=== PATIENT | male | born 1940 | race Caucasian/White ===

== ENCOUNTER 2019-06-02 05:46 | Outpatient (RCR) | payer MEDICARE, SELFPAY | END 2019-06-21 00:01 | LOC: ONCMED 05:46 | PROVIDERS: Family Provider Nurse Practitioner Family; Visit Provider Radiology Radiation Oncology | DX: C79.51 Secondary malignant neoplasm of bone (principal); C34.11 Malignant neoplasm of upper lobe, right bronchus or lung; I82.622 Acute embolism and thrombosis of deep veins of left upper extremity; G89.3 Neoplasm related pain (acute) (chronic); K59.00 Constipation, unspecified; K57.30 Diverticulosis of large intestine without perforation or abscess without bleeding; R91.8 Other nonspecific abnormal finding of lung field; Z79.02 Long term (current) use of antithrombotics/antiplatelets; Z79.84 Long term (current) use of oral hypoglycemic drugs; Z92.3 Personal history of irradiation; Z90.2 Acquired absence of lung [part of] ==

== ENCOUNTER 2019-06-28 10:51 | Emergency (ER) | payer MEDICARE, SELFPAY ==
[2019-06-28 10:57] VITALS: BP 139/90; PULSE 73; RESP 16; TEMP 36.5; O2SAT 92; BMI 29.9
--- NOTE | 2019-06-28 11:09 | ED_ITS ---
Entered by Rere Orellana, acting as scribe for HPI - Dizziness General: Chief Complaint: Dizziness Stated Complaint: Dizzy Time Seen by Provider: 06/28/19 11:08 Source: patient and family Mode of arrival: ambulatory Limitations: no limitations History of Present Illness: HPI Narrative: 79 yo male presents with dizziness. pt states it has been hard to walk. pt states he had pins placed in his L hip due to bone cancer recently. pt was concerned that the dizziness was linked to his cancer and wanted to get checked out. pt states this started 1 month ago but worsened 2 days ago. pt denies any other symptoms at this time. MD elicited complaint: dizziness, lightheadedness and difficulty walking Onset (ago): day(s) (today) Timing: sudden onset Severity: similar to previous episodes (off and on for 1 month) Exacerbating factors: movement/ambulation, exertion and standing Relieving factors: other (better later in the day) Associated symptoms: Reports nausea and weakness; Denies chest pain, chills, diaphoresis or syncope Review of Systems General: Reports: 10 or more systems reviewed and unremarkable except in HPI and below Const: Denies: fever, chills, body aches, change in appetite, diaphoresis or change in sleep pattern Eyes: Denies: change in vision ENMT: Denies: throat pain or uvular edema Card: Reports: lightheadedness; Denies: chest pain or syncope Resp: Denies: shortness of breath, productive cough, non-productive cough, change in phlegm color or coughing up blood GI: Reports: nausea : Denies: flank pain, urinary hesitancy, nighttime urination or genital lesion PFSH ED PFSH: Statuses (acute, chronic, etc) shown below reflect problem list status as previously entered and may not be historically accurate Social History Smoking and tobacco status: former smoker Physical Exam Const: COMMON NORMALS: no apparent distress, average body habitus, oriented x3, no limitations, healthy appearing, alert and well nourished HENMT: COMMON NORMALS: normocephalic, head/scalp atraumatic, hearing grossly normal bilaterally, external ears normal, EAC's normal, TM's normal bilaterally, external nose normal, nasal mucous membranes and turbinates normal, moist oral mucous membranes, oropharynx normal, dentition normal and gingiva normal HEAD & SCALP: normocephalic and atraumatic NOSE: external nose normal and nasal mucous membranes and turbinates normal EXTERNAL EAR: Yes external ears normal EXTERNAL AUDITORY CANAL: EAC's normal TYMPANIC MEMBRANE: TM's normal bilaterally THROAT: no uvular edema Eye: COMMON NORMALS: PERRL, EOMs intact bilaterally, conjunctivae normal, no scleral icterus, no papilledema, normal visual hickey by confrontation and fundi normal bilaterally CONJUNCTIVA: Yes conjunctivae normal PUPIL: Yes PERRL DIRECT OPHTHALMOSCOPY: Yes no papilledema and Yes fundi normal bilaterally Neck/C-Spine: COMMON NORMALS: full ROM, no lymphadenopathy, supple, no meningeal signs, no JVD, thyroid normal and no carotid bruits THYROID: thyroid normal Chest: COMMONS NORMALS: inspection of chest normal and palpation of chest normal Resp: COMMON NORMALS: normal respiratory effort, no retractions, no use of accessory muscles, clear to auscultation bilaterally and percussion normal AUSCULTATION: clear to auscultation bilaterally PERCUSSION: percussion normal Cardio: COMMON NORMALS: no JVD, regular rate, regular rhythm, S1 normal heart sound, S2 normal heart sound, no gallops, no clicks, no murmurs, no rub and peripheral pulses 2+ throughout RATE: regular rate RHYTHM: regular rhythm HEART SOUNDS: S1 normal and S2 normal PERIPHERAL PULSES: pulses 2+ throughout GI: COMMON NORMALS: normal to inspection, nondistended, normoactive bowel sounds, soft to palpation, non-tender, no hepatosplenomegaly, no masses and no bruits PALPATION: Yes soft and Yes no hepatosplenomegaly : COMMON NORMALS: Yes no CVA tenderness BLADDER/KIDNEY EXAM: Yes no CVA tenderness Back/Pelvis: COMMON NORMALS: no CVA tenderness, thoracic and lumbar spine normal to inspection, no thoracic nor lumbar tenderness, thoraco-lumbar ROM normal and straight leg raise negative bilaterally Extremity: COMMON NORMALS: normal to inspection, full ROM, normal capillary refill, no joint enlargement, no clubbing, cyanosis or edema, no calf tenderness and no pedal edema Neuro: COMMON NORMALS: oriented x3 SENSORIUM/ORIENTATION: Yes alert MENINGEAL SIGNS: Yes no meningeal signs Skin: COMMON NORMALS: no rashes or lesions noted, no wounds, skin turgor normal, no jaundice, no petechiae and no mottling GENERAL SKIN EXAM: no rashes or lesions noted and turgor normal Course Vital Signs: Vital signs: Vital Signs Temperature 97.7 F 06/28/19 10:57 Pulse Rate 73 06/28/19 10:57 Respiratory Rate 16 06/28/19 10:57 Blood Pressure 139/90 06/28/19 10:57 Pulse Oximetry 92 06/28/19 10:57 MDM - Dizziness Lab Data: Labs: Lab Results 06/28/19 06/28/19 06/28/19 Range/Units 11:30 11:30 11:30 WBC 5.8 (4.0-10.0) 10^3/ uL RBC 5.50 H (4.1-5.3) 10^6/u L Hgb 16.7 H (11.7-16.6) g/dL Hct 47.8 (42.0-52.0) % MCV 86.9 (80-94) fL MCH 30.4 (28.0-34.0) pg MCHC 34.9 (30.0-36.0) g/dL RDW 12.9 (12.1-15.1) % Plt Count 87 L (130-400) 10^3/c mm MPV 10.7 H (7.4-10.4) fL Neut % (Auto) 66.6 % Lymph % (Auto) 18.7 % [place] % (Auto) 9.6 % Eos % (Auto) 3.9 % Baso % (Auto) 1.0 % Neut # (Auto) 3.9 (1.8-7.7) 10^3/u L Lymph # (Auto) 1.1 (0.8-4.8) 10^3/u L [place] # (Auto) 0.6 (0.2-0.9) 10^3/u L Eos # (Auto) 0.2 (0.0-0.8) 10^3/u L Baso # (Auto) 0.1 (0.0-0.1) 10^3/u L Nucleated RBC % (a uto) 0 % Nucleated RBCs # 0.0 /100WBC Sodium 137 (136-145) mmol/L Potassium 4.3 (3.5-5.1) mmol/L Chloride 101 (98-107) mmol/L Carbon Dioxide 24 (22-29) mmol/L Anion Gap 16.3 (5-19) BUN 24 H (8-23) mg/dL Creatinine 1.0 (0.7-1.2) mg/dL Glucose 158 H (74-106) mg/dL Lactate 1.2 (0.5-2.2) mmol/L Calcium 10.5 H (8.8-10.2) mg/Dl Total Bilirubin 0.9 (0.15-1.2) mg/dL AST 16 (0-40) U/L ALT 13 (0-41) U/L Alkaline Phosphata se 49 (40-130) IU/L NT-Pro-B Natriuret Pep 106 (0-450) pg/mL Total Protein 7.2 (6.6-8.7) g/dL Albumin 4.7 (3.5-5.2) g/dL Globulin 2.5 (1.3-4.6) g/dL Urine Color (Yellow) Urine Appearance (CLEAR) Urine pH (5-7) Ur Specific Gravit y (1.005-1.030) Urine Protein (Negative) Urine Glucose (UA) (Normal) Urine Ketones (Negative) Urine Occult Blood (Negative) Urine Nitrate (Negative) Urine Bilirubin (NEGATIVE) Urine Urobilinogen (Negative) mg/dL Ur Leukocyte Ritika ase (Negative) 06/28/19 Range/Units 12:22 WBC (4.0-10.0) 10^3/ uL RBC (4.1-5.3) 10^6/u L Hgb (11.7-16.6) g/dL Hct (42.0-52.0) % MCV (80-94) fL MCH (28.0-34.0) pg MCHC (30.0-36.0) g/dL RDW (12.1-15.1) % Plt Count (130-400) 10^3/c mm MPV (7.4-10.4) fL Neut % (Auto) % Lymph % (Auto) % [place] % (Auto) % Eos % (Auto) % Baso % (Auto) % Neut # (Auto) (1.8-7.7) 10^3/u L Lymph # (Auto) (0.8-4.8) 10^3/u L [place] # (Auto) (0.2-0.9) 10^3/u L Eos # (Auto) (0.0-0.8) 10^3/u L Baso # (Auto) (0.0-0.1) 10^3/u L Nucleated RBC % (a uto) % Nucleated RBCs # /100WBC Sodium (136-145) mmol/L Potassium (3.5-5.1) mmol/L Chloride (98-107) mmol/L Carbon Dioxide (22-29) mmol/L Anion Gap (5-19) BUN (8-23) mg/dL Creatinine (0.7-1.2) mg/dL Glucose (74-106) mg/dL Lactate (0.5-2.2) mmol/L Calcium (8.8-10.2) mg/Dl Total Bilirubin (0.15-1.2) mg/dL AST (0-40) U/L ALT (0-41) U/L Alkaline Phosphata se (40-130) IU/L NT-Pro-B Natriuret Pep (0-450) pg/mL Total Protein (6.6-8.7) g/dL Albumin (3.5-5.2) g/dL Globulin (1.3-4.6) g/dL Urine Color Yellow (Yellow) Urine Appearance Clear (CLEAR) Urine pH 6 (5-7) Ur Specific Gravit y 1.010 (1.005-1.030) Urine Protein Neg (Negative) Urine Glucose (UA) 4+ H (Normal) Urine Ketones Negative (Negative) Urine Occult Blood Neg (Negative) Urine Nitrate Negative (Negative) Urine Bilirubin Neg (NEGATIVE) Urine Urobilinogen Norm (Negative) mg/dL Ur Leukocyte Ritika ase Negative (Negative) Discharge Plan Discharge Patient Disposition: Home, Self-Care Clinical Impression: Dizziness Acute vestibular neuronitis Qualifiers: Laterality: unspecified laterality Qualified Code(s): H81.20 - Vestibular neuronitis, unspecified ear Condition: Stable Prescriptions: New meclizine 25 mg tablet 25 mg PO QID PRN (Reason: dizziness) Qty: 20 RF: 0 Discharge Orders: Discharge Order (Routine); Ordered 06/28/19 Ordered By: Devendra Franz Referrals: Aislinn Beebe NP [Primary Care Provider] - Discharge Diet: Usual diet Discharge Activity: Return to work/school after cleared by PCP/Specialist Coding Level of Care Code ED Fusion Operator for Chg Fwd Exam Problem Focused The documentation recorded by the Esteban seals Bridget Annette, accurately reflects the service I personally performed and the decisions made by , Devendra Franz, Jun 28, 2019 10:51
--- NOTE | 2019-06-28 11:19 | CT_ITS ---
WS: [id number] CT HEAD WITH AND WITHOUT CONTRAST HISTORY: bone ca -- mets? TECHNIQUE: Noncontrast 2.5 mm axial images obtained from the vertex to the skull base. Additional patricia ging performed at 2.5 mm axial images status post IV contrast. Bone and soft tissue windows are revie wed. All CT scans at [facility] use at least one of these dose optimization techniques: a utomated exposure control; mA and/or kV adjustment per patient size (includes targeted exams where do se is matched to clinical indication); or iterative reconstruction. CONTRAST: Omnipaque 300; 95 mL IV. DLP: 1326.51 mGy-cm. COMPARISON: 01/01/2019 No acute intracranial hemorrhage, edema or midline shift. Mild chronic microvascular ischemic disease . Prior lacunar infarct RIGHT basal ganglia. There is a new area of decreased density in the posterio r RIGHT parietal lobe. This does not enhance. No enhancing masses are identified. Small venous angioma in the LEFT frontal lobe vertex. Dural venous sinuses are normally enhancing. Moderate atherosclerosis. No occlusions. Distal vertebral arteries are very tortuous. Paranasal sinuses as visualized: Clear. Mastoid air cells: Clear. Calvarium and scalp: Intact. CT/CT head wo/w con [id number] IMPRESSION: 1. No acute intracranial hemorrhage or edema. 2. No enhancing masses. To exclude early metastatic disease consider MRI brain with contrast follow-up on a nonurgent basis. 3. No metastasis to the skull is identified. 4. Moderate atherosclerosis intracranial carotid arteries.
--- NOTE | 2019-06-28 11:19 | XR_ITS ---
WS: [id number] PORTABLE CHEST HISTORY: weakness COMPARISON: 03/19/2019 Prior sternotomy. Elevated RIGHT hemidiaphragm with adjacent pleural thickening. Scarlike area of interstitial thickeni ng at the LEFT lung base is stable. No pleural effusion or pneumothorax. Cardiac size: Normal. Mediastinum/Aorta: Mild atherosclerosis aorta. No osseous abnormality seen. XR/XR chest 1V portable [id number] IMPRESSION: Stable chest with no acute cardiopulmonary disease.
--- NOTE | 2019-06-28 11:35 | PC.NURSE ---
chest x-ray being performed at this time.
[2019-06-28 11:42] LABS: Basophils # 0.1 10^3/uL (0.0-0.1); Eosinophils # 0.2 10^3/uL (0.0-0.8); Eosinophils % 3.9 %; Hematocrit 47.8 % (42.0-52.0); Hemoglobin 16.7 g/dL (11.7-16.6); Lymphocytes # 1.1 10^3/uL (0.8-4.8); Lymphocytes % 18.7 %; Mean Corpuscular HGB Conc 34.9 g/dL (30.0-36.0); Mean Corpuscular Hemoglobin 30.4 pg (28.0-34.0); Mean Corpuscular Volume 86.9 fL (80-94); Mean Platelet Volume 10.7 fL (7.4-10.4); Monocytes # 0.6 10^3/uL (0.2-0.9); Monocytes % 9.6 %; Neutrophils # 3.9 10^3/uL (1.8-7.7); Neutrophils % 66.6 %; Nucleated Red Blood Cells % 0 %; Platelet Count 87 10^3/cmm (130-400); Red Cell Distribution Width 12.9 % (12.1-15.1); White Blood Count 5.8 10^3/uL (4.0-10.0)
[2019-06-28] MEDS: sodium chloride 0.9% 1,000 ML 999 ML IV (11:43)
[2019-06-28 11:52] LABS: Lactate (Lactic Acid level) 1.2 mmol/L (0.5-2.2)
[2019-06-28 12:02] LABS: Alanine Aminotransferase 13 U/L (0-41); Albumin Level 4.7 g/dL (3.5-5.2); Alkaline Phosphatase 49 IU/L (40-130); Anion Gap 16.3 (5-19); Aspartate Amino Transferase 16 U/L (0-40); Blood Urea Nitrogen 24 mg/dL (8-23); Calcium 10.5 mg/Dl (8.8-10.2); Carbon Dioxide 24 mmol/L (22-29); Chloride 101 mmol/L (98-107); Globulin 2.5 g/dL (1.3-4.6); Glucose 158 mg/dL (74-106); NT Pro B Type Natriuretic Pept 106 pg/mL (0-450); Potassium 4.3 mmol/L (3.5-5.1); Sodium 137 mmol/L (136-145); Total Bilirubin 0.9 mg/dL (0.15-1.2); Total Protein 7.2 g/dL (6.6-8.7)
--- NOTE | 2019-06-28 12:10 | PC.NURSE ---
Patient attempting to collect urine
--- NOTE | 2019-06-28 12:23 | PC.NURSE ---
Patient to CT via stretcher
[2019-06-28] MEDS: iohexol 300 mg/mL 100 mL Btl IV (12:24)
[2019-06-28 12:25] LABS: Add Urine Microscopic? NO
--- NOTE | 2019-06-28 12:27 | PC.NURSE ---
Patient back to room
[2019-06-28 12:39] LABS: Urine Appearance Clear (CLEAR); Urine Color Yellow (Yellow); pH Urine 6 (5-7)
[2019-06-28 12:40] LABS: Bilirubin Urine Neg (NEGATIVE); Blood Urine Neg (Negative); Glucose Urine UA 4+ (Normal); Ketones Urine Negative (Negative); Leukocyte Esterase Urine Negative (Negative); Nitrate Urine Negative (Negative); Protein Urine Neg (Negative); Urobilinogen Urine Norm (Negative)
[2019-06-28 13:17] VITALS: BP 138/63; PULSE 73; RESP 15; O2SAT 97
== END 2019-06-28 13:18 | disposition home or self-care (01) ==
PROVIDERS: Emergency Provider Family Medicine; Family Provider Nurse Practitioner Family; PCP Nurse Practitioner Family
DX: H81.20 Vestibular neuronitis, unspecified ear (principal); Z87.891 Personal history of nicotine dependence; I70.0 Atherosclerosis of aorta
CPT/HCPCS: 36415; 70470; 71045; 80053; 81003; 83605; 83880; 85025; 96360; 99281; 99284; J7030; Q9967

== ENCOUNTER 2019-07-03 23:05 | Inpatient (IN) | payer MEDICARE, SELFPAY ==
[2019-07-03 23:15] VITALS: BP 142/78; PULSE 85; RESP 16; TEMP 37.2; O2SAT 92; BMI 25.8
--- NOTE | 2019-07-03 23:25 | ECG_ITS ---
Measurements Intervals [place] Rate: 89 P: 59 [place]: 158 QRS: 29 QRSD: 87 T: 70 QT: 350 QTc: 427 SINUS RHYTHM WITH OCCASIONAL VENTRICULAR PREMATURE COMPLEXES POSSIBLE ANTERIOR MYOCARDIAL INFARCTION , OF INDETERMINATE AGE [30 ms Q WAVE IN V3 V3/V4, OR R < 0.2 mV IN V4] Possible old inferior wall VA Compared to ECG 03/17/2019 12:29:17 Ventricular premature complex(es) now present Myocardial infarct finding still present Electronically Signed On 07-04-2019 19:25:28 NETWORKING ADMINISTRATOR by Gabriel Merchant M.D. [email or web address]
--- NOTE | 2019-07-03 23:25 | CTR_ITS ---
PROCEDURE INFORMATION: Exam: CT Head Without Contrast Exam date and time: 07/03/2019 11:29 PM Age: 79 years old Clinical indication: Altered mental status/memory loss; Confusion or disorientation TECHNIQUE: Imaging protocol: Computed tomography of the head without contrast. Total DLP: 882.99 mGy-cm Radiation optimization: All CT scans at this facility use at least one of these dose optimization techniques: automated exposure control; mA and/or kV adjustment per patient size (includes targeted exams where dose is matched to clinical indication); or iterative reconstruction. COMPARISON: CT head wo/w con [id number] 06/28/2019 12:31 PM FINDINGS: Brain: No acute intracranial hemorrhage or mass effect. There is decreased attenuation in the periventricular white matter, likely from microvascular disease. 10 mm more focal area of low attenuation in left frontal lobe, not obviously visible on the comparison exam from 6 days ago. While not specific, this could represent a subacute infarct. Acute infarct,(<24 hrs old), is felt less likely given the degree of low-attenuation, but not entirely excluded. Please correlate clinically. 2 in MRI could be more sensitive/specific for acute infarct detection, and also for distinguishing between old and subacute infarcts, as clinically directed. Ventricles: Ventricle size is normal for age. Bones/joints: No definite acute skull fracture. Sinuses: Included paranasal sinuses are essentially clear. Mastoid air cells: No significant acute finding. Soft tissues: Unremarkable. Vasculature: Vascular calcifications in the internal carotid and vertebral basilar systems. CT/CT head wo con* [id number] IMPRESSION: 1. No acute intracranial hemorrhage or mass effect. 2. Changes of microvascular disease. 3. 10 mm more focal area of low attenuation in left frontal lobe, not obviously visible on the comparison exam from 6 days ago. While not specific, this could represent a subacute infarct. See above discussion. 4. Other findings discussed above. Radiation Dose CTDIVOL = (mGy): DLP = 882.99 (mGy-cm)
--- NOTE | 2019-07-03 23:27 | PC.NURSE ---
POC BGS 158
[2019-07-03 23:32] VITALS: O2SAT 94; BMI 25.0
--- NOTE | 2019-07-03 23:49 | ED_ITS ---
Entered by Berenice Ash, acting as scribe for Stuart Mariscal DO Jul 03, 2019 23:05 HPI - Altered Mental Status General: Chief Complaint: Altered Mental Status Stated Complaint: AMS Time Seen by Provider: 07/03/19 23:43 History of Present Illness: HPI narrative: 79 yo m came to the er by ems for altered mental status. Onset was 4 days ago. Pts family states that he has been dizzy and has not eat at all yesterday. states that pt has not been answering in full sentences and has not been himself. Also states that he has not been to the bathroom at all today. MD complaint: altered mental status Onset (ago): day(s) (4 days ago) Timing confirmed by: spouse Severity: mild Consistency of symptoms: Getting Worse Associated symptoms: Reports no associated symptoms; Deny auditory hallucinations or visual hallucinations Review of Systems Const: Denies: fever or chills Eyes: Denies: change in vision or blurry vision ENMT: Denies: painful swallowing, swelling of lips/tongue, bleeding gums, dent al pain, Change in hearing, nose bleeds, post nasal drip or facial/sinus pain Card: Denies: chest pain, palpitations, irregular heart rhythm, edema, swelling of feet/ankles, shortness of breath on exertion or shortness of breath when lying down Resp: Denies: shortness of breath, productive cough, non-productive cough or wheezing GI: Denies: abdominal pain, nausea, vomiting, rectal pain, blood in stool or black tarry stool : Denies: difficulty urinating, painful urination, urinary frequency, urinary urgency or blood in urine Musc: Denies: neck pain, back pain, redness or joint warmth Skin/Breast: Denies: rash, itching or redness Neuro: Reports: dizziness; Denies: headache, vertigo, confusion or seizure-like activity Psych: Denies: anxiety, visual hallucinations or auditory hallucinations PFSH ED PFSH: Statuses (acute, chronic, etc) shown below reflect problem list status as previously entered and may not be historically accurate Social History Smoking and tobacco status: unknown if ever smoked Physical Exam Const: COMMON NORMALS: alert GENERAL APPEARANCE: well developed ORIENTATION/CONSCIOUSNESS: Yes awake and Yes oriented to person HENMT: COMMON NORMALS: normocephalic, external ears normal, external nose normal and moist oral mucous membranes HEAD & SCALP: normocephalic; no scalp tenderness FACE & SINUS: normal facial exam NOSE: external nose normal and no nasal discharge EXTERNAL EAR: Yes external ears normal MOUTH: tongue normal Eye: COMMON NORMALS: PERRL, EOMs intact bilaterally and conjunctivae normal EYELID: eyelids normal CONJUNCTIVA: Yes conjunctivae normal PUPIL: Yes PERRL Neck/C-Spine: COMMON NORMALS: full ROM GENERAL: No tracheal deviation CERVICAL SPINE: Yes normal cervical lordosis, No cervical spine tenderness, No step off deformity, No paracervical muscle tenderness and No paracervical muscle spasm Chest: COMMONS NORMALS: inspection of chest normal CHEST: Yes symmetrical chest wall rise and No tenderness Resp: COMMON NORMALS: clear to auscultation bilaterally EFFORT & INSPECTION: No tachypneic, No respiratory distress, No retractions, No uses accessory muscles and No tracheal deviation AUSCULTATION: clear to auscultation bilaterally, no rhonchi, no wheezes and lung sounds not diminished Cardio: COMMON NORMALS: regular rate and regular rhythm RATE: regular rate RHYTHM: regular rhythm HEART SOUNDS: no murmurs PERIPHERAL PULSES: radial pulses present GI: INSPECTION: No abdominal distension AUSCULTATION: No hyperactive bowel sounds and No hypoactive bowel sounds PALPATION: No tender, No guarding and No rigid PERCUSSION: no dullness to percussion and no tympanic to percussion : COMMON NORMALS: Yes no CVA tenderness BLADDER/KIDNEY EXAM: Yes no CVA t enderness Back/Pelvis: COMMON NORMALS: no CVA tenderness Neuro: SENSORIUM/ORIENTATION: Yes alert and Yes oriented to person Psych: COMMON NORMALS: speech normal; negative for mental status grossly normal SPEECH: Yes normal speech Skin: COMMON NORMALS: no rashes or lesions noted GENERAL SKIN EXAM: no rashes or lesions noted Course ED course: 79-year-old unfortunate male with a history of significant mental status change. He was seen a week ago for dizziness. His head CT was negative at that point. He now has a left frontal area of encephalomalacia, consistent with subacute infarct. He does have a history of cancer, and this could be malignancy related as well. He will be admitted for further imaging, fluid support for his dehydration, etc. Consultations: Consultation #1: dave Time: 02:03 Vital Signs: Vital signs: Vital Signs Temperature 98.0 F 07/04/19 05:54 Pulse Rate 83 07/04/19 05:54 Respiratory Rate 18 07/04/19 05:54 Blood Pressure 152/69 07/04/19 05:54 Pulse Oximetry 90 07/04/19 05:54 MDM - Altered Mental Status Lab Data: Labs: Lab Results 07/03/19 07/03/19 07/03/19 Range/Units 00:55 23:30 23:30 WBC 10.4 H (4.0-10.0) 10^3/ uL RBC 6.21 H (4.1-5.3) 10^6/u L Hgb 18.4 H (11.7-16.6) g/dL Hct 53.5 H (42.0-52.0) % MCV 86.2 (80-94) fL MCH 29.6 (28.0-34.0) pg MCHC 34.4 (30.0-36.0) g/dL RDW 13.1 (12.1-15.1) % Plt Count 70 L (130-400) 10^3/c mm MPV 10.7 H (7.4-10.4) fL Neut % (Auto) 72.1 % Lymph % (Auto) 14.2 % [place] % (Auto) 11.5 % Eos % (Auto) 1.5 % Baso % (Auto) 0.4 % Neut # (Auto) 7.5 (1.8-7.7) 10^3/u L Lymph # (Auto) 1.5 (0.8-4.8) 10^3/u L [place] # (Auto) 1.2 H (0.2-0.9) 10^3/u L Eos # (Auto) 0.2 (0.0-0.8) 10^3/u L Baso # (Auto) 0.0 (0.0-0.1) 10^3/u L Nucleated RBC % (a uto) 0 % Nucleated RBCs # 0.0 /100WBC PT 14.60 H (10.5-13.3) SECO NDS INR 1.10 (0.8-1.2) APTT 31.0 (23.9-36.7) SECO NDS Sodium (136-145) mmol/L Potassium (3.5-5.1) mmol/L Chloride (98-107) mmol/L Carbon Dioxide (22-29) mmol/L Anion Gap (5-19) BUN (8-23) mg/dL Creatinine (0.7-1.2) mg/dL Glucose (74-106) mg/dL Lactate (0.5-2.2) mmol/L Calcium (8.8-10.2) mg/Dl Total Bilirubin (0.15-1.2) mg/dL AST (0-40) U/L ALT (0-41) U/L Alkaline Phosphata se (40-130) IU/L Ammonia 35 (16-60) umol/L Troponin T Baselin e (0-15) ng/mL Troponin T 120 Min [place] (0-15) ng/mL Delta Troponin T (0-10) ABS# Total Protein (6.6-8.7) g/dL Albumin (3.5-5.2) g/dL Globulin (1.3-4.6) g/dL Urine Color (Yellow) Urine Appearance (CLEAR) Urine pH (5-7) Ur Specific Gravit y (1.005-1.030) Urine Protein (Negative) Urine Glucose (UA) (Normal) Urine Ketones (Negative) Urine Occult Blood (Negative) Urine Nitrate (Negative) Urine Bilirubin (NEGATIVE) Urine Urobilinogen (Negative) mg/dL Ur Leukocyte Ritika ase (Negative) Urine RBC (0-2) /hpf Urine WBC (0-5) /hpf Ur Squamous Epith Cells (0-5) Urine Bacteria (NONE) Salicylates (3-10) mg/dL Urine Opiates Scre en (Negative) ng/mL Acetaminophen (10-30) ug/mL Ur Barbiturates Sc reen (Negative) ng/mL Ur Phencyclidine S crn (Negative) ng/mL Ur Amphetamines Sc reen (Negative) ng/mL U Benzodiazepines Scrn (Negative) ng/mL Urine Cocaine Scre en (Negative) ng/mL U Marijuana (THC) Screen (Negative) ng/mL Serum Ketones (Negative) 07/03/19 07/03/19 07/03/19 Range/Units 23:30 23:30 23:30 WBC (4.0-10.0) 10^3/ uL RBC (4.1-5.3) 10^6/u L Hgb (11.7-16.6) g/dL Hct (42.0-52.0) % MCV (80-94) fL MCH (28.0-34.0) pg MCHC (30.0-36.0) g/dL RDW (12.1-15.1) % Plt Count (130-400) 10^3/c mm MPV (7.4-10.4) fL Neut % (Auto) % Lymph % (Auto) % [place] % (Auto) % Eos % (Auto) % Baso % (Auto) % Neut # (Auto) (1.8-7.7) 10^3/u L Lymph # (Auto) (0.8-4.8) 10^3/u L [place] # (Auto) (0.2-0.9) 10^3/u L Eos # (Auto) (0.0-0.8) 10^3/u L Baso # (Auto) (0.0-0.1) 10^3/u L Nucleated RBC % (a uto) % Nucleated RBCs # /100WBC PT (10.5-13.3) SECO NDS INR (0.8-1.2) APTT (23.9-36.7) SECO NDS Sodium 148 H (136-145) mmol/L Potassium 4.1 (3.5-5.1) mmol/L Chloride 104 (98-107) mmol/L Carbon Dioxide 24 (22-29) mmol/L Anion Gap 24.1 H (5-19) BUN 23 (8-23) mg/dL Creatinine 1.0 (0.7-1.2) mg/dL Glucose 142 H (74-106) mg/dL Lactate (0.5-2.2) mmol/L Calcium 10.9 H (8.8-10.2) mg/Dl Total Bilirubin 1.4 H (0.15-1.2) mg/dL AST 17 (0-40) U/L ALT 14 (0-41) U/L Alkaline Phosphata se 58 (40-130) IU/L Ammonia (16-60) umol/L Troponin T Baselin e 40 H (0-15) ng/mL Troponin T 120 Min [place] (0-15) ng/mL Delta Troponin T (0-10) ABS# Total Protein 7.5 (6.6-8.7) g/dL Albumin 5.1 (3.5-5.2) g/dL Globulin 2.4 (1.3-4.6) g/dL Urine Color (Yellow) Urine Appearance (CLEAR) Urine pH (5-7) Ur Specific Gravit y (1.005-1.030) Urine Protein (Negative) Urine Glucose (UA) (Normal) Urine Ketones (Negative) Urine Occult Blood (Negative) Urine Nitrate (Negative) Urine Bilirubin (NEGATIVE) Urine Urobilinogen (Negative) mg/dL Ur Leukocyte Ritika ase (Negative) Urine RBC (0-2) /hpf Urine WBC (0-5) /hpf Ur Squamous Epith Cells (0-5) Urine Bacteria (NONE) Salicylates < 0.3 L (3-10) mg/dL Urine Opiates Scre en (Negative) ng/mL Acetaminophen < 5.0 L (10-30) ug/mL Ur Barbiturates Sc reen (Negative) ng/mL Ur Phencyclidine S crn (Negative) ng/mL Ur Amphetamines Sc reen (Negative) ng/mL U Benzodiazepines Scrn (Negative) ng/mL Urine Cocaine Scre en (Negative) ng/mL U Marijuana (THC) Screen (Negative) ng/mL Serum Ketones Negative (Negative) 07/04/19 07/04/19 07/04/19 Range/Units 00:45 00:45 00:55 WBC (4.0-10.0) 10^3/ uL RBC (4.1-5.3) 10^6/u L Hgb (11.7-16.6) g/dL Hct (42.0-52.0) % MCV (80-94) fL MCH (28.0-34.0) pg MCHC (30.0-36.0) g/dL RDW (12.1-15.1) % Plt Count (130-400) 10^3/c mm MPV (7.4-10.4) fL Neut % (Auto) % Lymph % (Auto) % [place] % (Auto) % Eos % (Auto) % Baso % (Auto) % Neut # (Auto) (1.8-7.7) 10^3/u L Lymph # (Auto) (0.8-4.8) 10^3/u L [place] # (Auto) (0.2-0.9) 10^3/u L Eos # (Auto) (0.0-0.8) 10^3/u L Baso # (Auto) (0.0-0.1) 10^3/u L Nucleated RBC % (a uto) % Nucleated RBCs # /100WBC PT (10.5-13.3) SECO NDS INR (0.8-1.2) APTT (23.9-36.7) SECO NDS Sodium (136-145) mmol/L Potassium (3.5-5.1) mmol/L Chloride (98-107) mmol/L Carbon Dioxide (22-29) mmol/L Anion Gap (5-19) BUN (8-23) mg/dL Creatinine (0.7-1.2) mg/dL Glucose (74-106) mg/dL Lactate (0.5-2.2) mmol/L Calcium (8.8-10.2) mg/Dl Total Bilirubin (0.15-1.2) mg/dL AST (0-40) U/L ALT (0-41) U/L Alkaline Phosphata se (40-130) IU/L Ammonia (16-60) umol/L Troponin T Baselin e (0-15) ng/mL Troponin T 120 Min [place] 34.36 H (0-15) ng/mL Delta Troponin T -5.64 L (0-10) ABS# Total Protein (6.6-8.7) g/dL Albumin (3.5-5.2) g/dL Globulin (1.3-4.6) g/dL Urine Color Yellow (Yellow) Urine Appearance Sl cloudy A (CLEAR) Urine pH 5 (5-7) Ur Specific Gravit y 1.025 (1.005-1.030) Urine Protein 2+ H (Negative) Urine Glucose (UA) 4+ H (Normal) Urine Ketones Negative (Negative) Urine Occult Blood 2+ H (Negative) Urine Nitrate Negative (Negative) Urine Bilirubin 1+ H (NEGATIVE) Urine Urobilinogen Norm (Negative) mg/dL Ur Leukocyte Ritika ase Negative (Negative) Urine RBC 5-10 H (0-2) /hpf Urine WBC 0-4 H (0-5) /hpf Ur Squamous Epith Cells 0-4 H (0-5) Urine Bacteria 1+ H (NONE) Salicylates (3-10) mg/dL Urine Opiates Scre en Negative (Negative) ng/mL Acetaminophen (10-30) ug/mL Ur Barbiturates Sc reen Negative (Negative) ng/mL Ur Phencyclidine S crn Negative (Negative) ng/mL Ur Amphetamines Sc reen Negative (Negative) ng/mL U Benzodiazepines Scrn Negative (Negative) ng/mL Urine Cocaine Scre en Negative (Negative) ng/mL U Marijuana (THC) Screen Negative (Negative) ng/mL Serum Ketones (Negative) 07/04/19 Range/Units 01:14 WBC (4.0-10.0) 10^3/ uL RBC (4.1-5.3) 10^6/u L Hgb (11.7-16.6) g/dL Hct (42.0-52.0) % MCV (80-94) fL MCH (28.0-34.0) pg MCHC (30.0-36.0) g/dL RDW (12.1-15.1) % Plt Count (130-400) 10^3/c mm MPV (7.4-10.4) fL Neut % (Auto) % Lymph % (Auto) % [place] % (Auto) % Eos % (Auto) % Baso % (Auto) % Neut # (Auto) (1.8-7.7) 10^3/u L Lymph # (Auto) (0.8-4.8) 10^3/u L [place] # (Auto) (0.2-0.9) 10^3/u L Eos # (Auto) (0.0-0.8) 10^3/u L Baso # (Auto) (0.0-0.1) 10^3/u L Nucleated RBC % (a uto) % Nucleated RBCs # /100WBC PT (10.5-13.3) SECO NDS INR (0.8-1.2) APTT (23.9-36.7) SECO NDS Sodium (136-145) mmol/L Potassium (3.5-5.1) mmol/L Chloride (98-107) mmol/L Carbon Dioxide (22-29) mmol/L Anion Gap (5-19) BUN (8-23) mg/dL Creatinine (0.7-1.2) mg/dL Glucose (74-106) mg/dL Lactate 1.4 (0.5-2.2) mmol/L Calcium (8.8-10.2) mg/Dl Total Bilirubin (0.15-1.2) mg/dL AST (0-40) U/L ALT (0-41) U/L Alkaline Phosphata se (40-130) IU/L Ammonia (16-60) umol/L Troponin T Baselin e (0-15) ng/mL Troponin T 120 Min [place] (0-15) ng/mL Delta Troponin T (0-10) ABS# Total Protein (6.6-8.7) g/dL Albumin (3.5-5.2) g/dL Globulin (1.3-4.6) g/dL Urine Color (Yellow) Urine Appearance (CLEAR) Urine pH (5-7) Ur Specific Gravit y (1.005-1.030) Urine Protein (Negative) Urine Glucose (UA) (Normal) Urine Ketones (Negative) Urine Occult Blood (Negative) Urine Nitrate (Negative) Urine Bilirubin (NEGATIVE) Urine Urobilinogen (Negative) mg/dL Ur Leukocyte Ritika ase (Negative) Urine RBC (0-2) /hpf Urine WBC (0-5) /hpf Ur Squamous Epith Cells (0-5) Urine Bacteria (NONE) Salicylates (3-10) mg/dL Urine Opiates Scre en (Negative) ng/mL Acetaminophen (10-30) ug/mL Ur Barbiturates Sc reen (Negative) ng/mL Ur Phencyclidine S crn (Negative) ng/mL Ur Amphetamines Sc reen (Negative) ng/mL U Benzodiazepines Scrn (Negative) ng/mL Urine Cocaine Scre en (Negative) ng/mL U Marijuana (THC) Screen (Negative) ng/mL Serum Ketones (Negative) Discharge Plan Discharge Patient Disposition: Admitted As Inpatient Admit Provider: Zak Humphreys Condition: Stable Discharge Date/Time: 07/04/19 03:07 Coding Level of Care Code ED Master Control Supervisor for Chg Fwd The documentation recorded by the Mihir seals Stephanie Lyn, accurately reflects the service I personally performed and the decisions made by , Stuart Mariscal DO Jul 03, 2019 23:05
[2019-07-03 23:54] LABS: Basophils % 0.4 %; Eosinophils # 0.2 10^3/uL (0.0-0.8); Eosinophils % 1.5 %; Hematocrit 53.5 % (42.0-52.0); Hemoglobin 18.4 g/dL (11.7-16.6); Lymphocytes # 1.5 10^3/uL (0.8-4.8); Lymphocytes % 14.2 %; Mean Corpuscular HGB Conc 34.4 g/dL (30.0-36.0); Mean Corpuscular Hemoglobin 29.6 pg (28.0-34.0); Mean Corpuscular Volume 86.2 fL (80-94); Mean Platelet Volume 10.7 fL (7.4-10.4); Monocytes # 1.2 10^3/uL (0.2-0.9); Monocytes % 11.5 %; Neutrophils # 7.5 10^3/uL (1.8-7.7); Neutrophils % 72.1 %; Nucleated Red Blood Cells % 0 %; Platelet Count 70 10^3/cmm (130-400); Red Blood Count 6.21 10^6/uL (4.1-5.3); Red Cell Distribution Width 13.1 % (12.1-15.1); White Blood Count 10.4 10^3/uL (4.0-10.0)
[2019-07-03 23:56] LABS: Ketone (Acetest) Serum Negative (Negative)
--- NOTE | 2019-07-03 23:59 | XR_ITS ---
WS: [id number] CHEST XRAY TECHNIQUE: Portable chest. CLINICAL INFORMATION: ams COMPARISON: None. FINDINGS: Heart: Normal cardiac silhouette. Sternotomy. Lungs: Elevation right hemidiaphragm. No acute pulmonary infiltrates. Bones: Normal visualized bony structures. XR/XR chest 1V portable [id number] IMPRESSION: No interval changes. No acute chest findings.
[2019-07-04] VITALS (13 sets, daily range): BP systolic 130–166; BP diastolic 67–98; PULSE 67–88; RESP 18–20; TEMP 36.4–37; O2SAT 90–96
[2019-07-04 00:08] LABS: Alanine Aminotransferase 14 U/L (0-41); Albumin Level 5.1 g/dL (3.5-5.2); Alkaline Phosphatase 58 IU/L (40-130); Anion Gap 24.1 (5-19); Aspartate Amino Transferase 17 U/L (0-40); Blood Urea Nitrogen 23 mg/dL (8-23); Calcium 10.9 mg/Dl (8.8-10.2); Carbon Dioxide 24 mmol/L (22-29); Chloride 104 mmol/L (98-107); Globulin 2.4 g/dL (1.3-4.6); Glucose 142 mg/dL (74-106); Potassium 4.1 mmol/L (3.5-5.1); Salicylate < 0.3 mg/dL (3-10); Sodium 148 mmol/L (136-145); Total Bilirubin 1.4 mg/dL (0.15-1.2); Total Protein 7.5 g/dL (6.6-8.7)
[2019-07-04 00:09] LABS: Acetaminophen < 5.0 ug/mL (10-30)
[2019-07-04] MEDS: lactated ringers 1,000 ML 999 ML IV (00:10)
[2019-07-04 00:17] LABS: Troponin(5th) Baseline 40 ng/mL (0-15)
[2019-07-04] MEDS: sodium chloride 0.9% 1,000 ML 999 ML IV (00:55)
[2019-07-04 01:15] LABS: Ammonia 35 umol/L (16-60)
[2019-07-04 01:16] LABS: Troponin 5 2HR 34.36 ng/mL (0-15)
[2019-07-04 01:19] LABS: Troponin 5 2HR Delta -5.64 ABS# (0-10)
[2019-07-04 01:20] LABS: Amphetamines Screen Urine Negative (Negative); Barbiturates Screen Urine Negative (Negative); Benzodiazepines Screen Urine Negative (Negative); Cocaine Screen Urine Negative (Negative); Opiate Screen Urine Negative (Negative); PCP Screen Urine Negative (Negative); THC Screen Urine Negative (Negative)
--- NOTE | 2019-07-04 01:25 | ECG_ITS ---
Measurements Intervals [place] Rate: 83 P: 61 MN: 169 QRS: 31 QRSD: 100 T: 56 QT: 377 QTc: 445 SINUS RHYTHM POSSIBLE ANTERIOR MYOCARDIAL INFARCTION , OF INDETERMINATE AGE [30 ms Q WAVE IN V3/V4, OR R < 0.2 mV IN V4] POSSIBLE INFERIOR MYOCARDIAL INFARCTION , PROBABLY OLD [30 ms Q WAVE IN II/aVF] Compared to ECG 03/17/2019 12:29:17 No significant changes Electronically Signed On 07-04-2019 19:31:02 EMS [employer] PIL[employer] by Gabriel Merchant M.D. [email or web address]
[2019-07-04 01:28] LABS: Add Urine Microscopic? YES; Bacteria Urine 1+; Bilirubin Urine 1+ (NEGATIVE); Blood Urine 2+ (Negative); Glucose Urine UA 4+ (Normal); Ketones Urine Negative (Negative); Leukocyte Esterase Urine Negative (Negative); Nitrate Urine Negative (Negative); Protein Urine 2+ (Negative); Specific Gravity, Urine 1.025 (1.005-1.030); Squamous Epithelial Cell Urine 0-4 (0-5); Urine Color Yellow (Yellow); Urobilinogen Urine Norm (Negative); WBC Urine 0-4 /hpf (0-5); pH Urine 5 (5-7)
[2019-07-04 01:41] LABS: Lactate (Lactic Acid level) 1.4 mmol/L (0.5-2.2)
--- NOTE | 2019-07-04 02:35 | PM.HP ---
Providers/Chief Complaint Primary Care Provider: Aislinn Beebe NP Chief Complaint: CVA History of Present Illness Lynnette Sevilla is a 79 year old M w/ RUL adenocarcinoma s/p lobectomy, recent mets to L femoral neck s/p prophylactic ORIF of L hip on 03/17/19, L arm unprovoked thrombosis on eliquis, CAD s/p CABG, HTN, Hyperlipidemia, COPD (on 3 L), Obesity, CKD stage 2, Hereditary hemochromatosis, Secondary polycythemia, OA, PVD s/p RLE fem-pop, Extensive atherosclerotic disease, NIDDM type II, Chronic HFpEF presents w/ AMS. Patient is unable to give any history so history obtained from chart and at bedside. Patient initially presented to the ED on 06/28/[address] scanning done during that ER visit was negative. As per , his symptoms have progressively worsened and he is more altered and confused with decreased appetite. CT done this ER visit shows new focal area of attenuation in the left frontal lobe. Review of Systems Narrative: Unable to obtain refer to HPI. Medications/Allergies Allergies Allergy/AdvReac Type Severity Reaction Status Date / Time naproxen [From Aleve] Allergy ALGY-Hives Verified 06/28/19 11:03 Penicillins Allergy ALGY-Hives Verified 06/28/19 11:03 PFSH Acute PFSH: Statuses (acute, chronic, etc) shown below reflect problem list status as previously entered and may not be historically accurate Social History Smoking and tobacco status: unknown if ever smoked Vitals/I&O/Wt Last Vital Signs Temp 99.0 F 07/03/19 23:15 Pulse 67 07/04/19 02:21 Resp 20 H 07/04/19 02:21 BP 146/85 07/04/19 02:21 Pulse Ox 92 07/04/19 02:21 Weight last 48 hrs Weight 74.843 kg Weight 74.843 kg Physical Exam Const: COMMON NORMALS: no apparent distress HENMT: COMMON NORMALS: normocephalic HEAD & SCALP: normocephalic Neck/C-Spine: COMMON NORMALS: full ROM and supple Resp: COMMON NORMALS: normal respiratory effort and clear to auscultation bilaterally EFFORT & INSPECTION: Yes symmetric chest movement AUSCULTATION: clear to auscultation bilaterally Cardio: COMMON NORMALS: regular rate, regular rhythm, S1 normal heart sound and S2 normal heart sound RATE: regular rate RHYTHM: regular rhythm HEART SOUNDS: S1 normal and S2 normal GI: COMMON NORMALS: normal to inspection, nondistended, normoactive bowel sounds and non-tender Extremity: COMMON NORMALS: full ROM and no clubbing, cyanosis or edema Neuro: OTHER: confused and altered Data : 07/03/19 23:30 07/03/19 23:30 A&P Assessment and plan (1) Altered mental status: #Altered mental status likely 2/2 CVA versus metastasis to brain based on CT scan showing 10 mm more focal area of low attenuation in left frontal lobe ?MRI in a.m. ?Carotid duplex ?Telemetry ?Neuro watch ?Aspirin, statin - PT/OT - Echo #HTN - c/w home meds #Continue with rest of chronic home medications #DVT prophylaxis?on Eliquis from previous DVT Status: Acute Code(s): R41.82 - Altered mental status, unspecified (2) Lung cancer: Status: Chronic Code(s): C34.90 - Malignant neoplasm of unspecified part of unspecified bronchus or lung (3) Accelerated hypertension: Status: Chronic Code(s): I10 - Essential (primary) hypertension (4) Coronary artery disease: Status: Chronic Code(s): I25.10 - Atherosclerotic heart disease of [place] coronary artery without angina pectoris (5) COPD (chronic obstructive pulmonary disease): Status: Chronic Code(s): J44.9 - Chronic obstructive pulmonary disease, unspecified Attestations Medical Necessity Statement*: Patient requires inpatient greater than 2 midnights stay for altered mental status secondary to CVA versus meds Coding Level of Care Code Acute Scientific Illustrator for [facility] Fwd Diagnoses Altered mental status R41.82 Lung cancer C34.90 Accelerated hypertension I10 Coronary artery disease I25.10 COPD (chronic obstructive pulmonary disease) J44.9
--- NOTE | 2019-07-04 03:25 | MR_ITS ---
WS: [id number] MRI HEAD WITH CONTRAST TECHNIQUE: Sagittal T1, T2 axial, T2 axial FLAIR, axial susceptibility weighted imaging, axial diffus ion weighted images, and coronal T2 images were obtained. Pre and post-T1 axial and post T1 coronal i mages. ADC and FSPGR images. CLINICAL INFORMATION: cva FINDINGS: Images moderately degraded by patient motion. Numerous patchy foci of restricted diffusion within the parasagittal frontal and parietal lobes consistent with acute ischemia in the YUN[place] territory. This in volves the genu of the corpus callosum. Largest area of ischemia measures approximately 1 CM. Additio nal tiny punctate foci of restricted diffusion involving the left cerebellum consistent with a tiny a reas of acute ischemia. Brainstem appears normal. Moderate small vessel changes. Moderate parenchymal volume loss. Mild edema associated with the large r areas of ischemia. No mass effect or midline shift. No hydrocephalus. Chronic infarct left cerebell um. Normal vascular flow voids at the skull base. No extra-axial fluid collections. Mild mucosal thic kening ethmoid air cells. Normal optic chiasm and pituitary infundibulum. Moderate symmetric atrophy involving the temporal lobes and hippocampal formations. Post gadolinium images degraded by motion. N o gross areas of abnormal enhancement. MR/MR head wo/w con [id number] IMPRESSION: 1. Images moderately degraded by motion artifact. 2. Multifocal patchy areas of acute ischemia involving the [place] territory bilat erally. Largest infarct measures 1.0 CM. 3. Additional punctate areas of acute ischemia involving the left cerebellum. 4. No evidence of significant mass effect or midline shift. 5. Moderate small vessel changes with moderate parenchymal volume loss. 6. Remainder of exam is limited due to motion.
--- NOTE | 2019-07-04 03:25 | USCV_ITS ---
Lynnette Sevilla Age: 79 Gender: M : 1940 Exam Date: 07/04/2019 06:20 Ordering Phys: Zak Humphreys DO Technologist: Oliverio Oro [place] [facility] [place]: CVA BP: 132 / 76 HR: 79 Rhythm: Sinus Technical Quality: Suboptimal MEASUREMENTS (Male / Female) Normal Values 2D ECHO LVOT Diameter 2.0 cm LV Ejection Fraction MOD 2C 56.4 % LV Ejection Fraction 2C AL 56.6 % LA Diameter 4.7 cm LA Width 4.0 cm LA Height 4.6 cm RA Width 4.7 cm RA Height 3.5 cm Aorta at Sinotubular Diameter 2.8 cm M-MODE LV Diastolic Diameter MM 5.3 cm 4.2 - 5.9 / 3.9 - 5.3 cm LV Systolic Diameter MM 3.1 cm LV Ejection Fraction MM Teich 73.2 % IVS Diastolic Thickness MM 0.8 cm 0.6 - 1.0 / 0.6 - 0.9 cm IVS Systolic Thickness MM 1.4 cm LVPW Diastolic Thickness MM 1.2 cm 0.6 - 1.0 / 0.6 - 0.9 cm LVPW Systolic Thickness MM 1.2 cm RV Diastolic Diameter MM 1.9 cm Aortic Annulus Diameter 3.5 cm LA Ao Ratio MM 1.3 MV E Point Septal Separation 1.4 cm DOPPLER AV Peak Velocity 130.0 cm/s LVOT Peak Velocity 98.0 cm/s AV Area Cont Eq vti 2.6 cm squared AV Area Cont Eq pk 2.4 cm squared MV Area PHT 5.0 cm squared Mitral E to A Ratio 0.7 MV E' Velocity 6.0 cm/s Mitral E to MV E' Ratio 8.9 Mitral E to LV E' Lateral Ratio 11.4 Mitral E to LV E' Septal Ratio 7.3 TR Peak Velocity 121.0 cm/s TR Peak Gradient 5.9 mmHg Right Atrial Pressure 3.0 mmHg Pulmonary Artery Systolic Pressu 8.9 mmHg FINDINGS Left Ventricle Normal left ventricular cavity size. Normal left ventricular systolic function. Left ventricular ejection fraction is estimated at 60 %. Although no diagnostic regional wall motion abnormality could be identified, this possibility cannot be completely excluded based on the study. Right Ventricle Probably normal right ventricular size and systolic function. Right Atrium Right atrium not well visualized. Right atrial pressure estimated at 3 mmHg. Left Atrium Probably normal left atrial size. Mitral Valve Mitral valve not well visualized. Trace mitral valve regurgitation. Aortic Valve Aortic valve not well visualized. No aortic valve stenosis. Tricuspid Valve Tricuspid valve not well visualized. Pulmonic Valve Pulmonic valve not well visualized. No pulmonary valve stenosis. No significant pulmonary valve regurgitation. Pericardium No pericardial effusion. Aorta Normal size aortic root and proximal ascending aorta. CONCLUSIONS 1. Normal left ventricular cavity size and systolic function. Left ventricular ejection fraction is estimated at 60 %. Although no diagnostic regional wall motion abnormality could be identified, this possibility cannot be completely excluded based on the study. 2. Probably normal right ventricular size and systolic function. 3. Right atrial pressure estimated at 3 mmHg. 4. No significant valvular abnormality based on the study. 5. When compared to previous echocardiogram dated 08/04/2018, there may not have been any significant change. Elena Garcia MD (Electronically Signed) Final Date: 04 July 2019 17:54 S
--- NOTE | 2019-07-04 03:48 | USCV_ITS ---
Lynnette Sevilla Age: 79 Gender: M : 1940 Exam Date: 07/04/2019 06:35 Ordering Phys: Zak Humphreys DO Technologist: Oliverio Oro Exam Location: [facility] [place] Indication: cva Risk Factors: None Previous Vascular Surgery: None Right Brachial BP: / Left Brachial BP: / Right Left Velocity (cm/s) Spectral Plaque Velocity (cm/s) Spectral Plaque Syst/Diast Broadening Syst/Diast Broadening 48.60/ 11.20 Prox CCA 67.50 / 14.20 51.90/ 9.20 Mid CCA 63.90 / 11.80 54.60/ 11.80 Dioni Distal CCA 55.70 / 15.40 92.40/ 18.90 Dioni Prox ICA 53.30 / 9.80 Hetro 79.30/ 21.30 Hetro Mid ICA 54.00 / 10.00 Dioni 77.00/ 13.00 Distal ICA 68.70 / 14.80 Dioni 49.80 ECA 47.40 1.69 ICA/CCA 1.02 Antegrade Vertebral Antegrade 63.90/ 22.50 cm/s 15.70/ 4.70 cm/s Tri Subclavian Tri 99.50 50.10 CONCLUSIONS Right ICA stenosis <50%. Moderate atheromatous plaque right carotid bulb/ICA. Left ICA stenosis <50%. Moderate atheromatous plaque left carotid bulb/ICA. Velocities are unchanged since 01/06/18 Normal antegrade Doppler flow noted in the right vertebral artery. Normal antegrade Doppler flow noted in the left vertebral artery. Aashish Montes MD (Electronically Signed) Final Date: 04 July 2019 16:44 S
[2019-07-04] MEDS: sodium chloride 0.9% 1,000 ML 100 ML IV (04:07)
[2019-07-04 05:21] LABS: Basophils % 0.4 %; Eosinophils # 0.2 10^3/uL (0.0-0.8); Eosinophils % 1.7 %; Hematocrit 49.4 % (42.0-52.0); Hemoglobin 17.1 g/dL (11.7-16.6); Lymphocytes # 1.4 10^3/uL (0.8-4.8); Lymphocytes % 15.2 %; Mean Corpuscular HGB Conc 34.6 g/dL (30.0-36.0); Mean Corpuscular Hemoglobin 31.2 pg (28.0-34.0); Mean Corpuscular Volume 90.1 fL (80-94); Mean Platelet Volume 9.9 fL (7.4-10.4); Monocytes % 10.9 %; Neutrophils # 6.5 10^3/uL (1.8-7.7); Neutrophils % 71.5 %; Nucleated Red Blood Cells % 0 %; Platelet Count 58 10^3/cmm (130-400); Red Blood Count 5.48 10^6/uL (4.1-5.3); Red Cell Distribution Width 13.1 % (12.1-15.1); White Blood Count 9.2 10^3/uL (4.0-10.0)
--- NOTE | 2019-07-04 05:25 | ECG_ITS ---
Measurements Intervals Dana Rate: 83 P: 64 WA: 175 QRS: 25 QRSD: 98 T: 69 QT: 355 QTc: 418 SINUS RHYTHM NONSPECIFIC T-WAVE ABNORMALITY Compared to ECG 03/17/2019 12:29:17 T-wave abnormality now present Myocardial infarct finding no longer present Electronically Signed On 07-04-2019 19:31:16 NUMERICAL CONTROL DRILL PRESS OPERATOR by Gabriel Merchant M.D. [email or web address]
[2019-07-04 05:40] LABS: Alanine Aminotransferase 11 U/L (0-41); Albumin Level 4.4 g/dL (3.5-5.2); Alkaline Phosphatase 50 IU/L (40-130); Anion Gap 17.7 (5-19); Aspartate Amino Transferase 14 U/L (0-40); Blood Urea Nitrogen 19 mg/dL (8-23); Calcium 9.8 mg/Dl (8.8-10.2); Carbon Dioxide 23 mmol/L (22-29); Chloride 101 mmol/L (98-107); Globulin 2.4 g/dL (1.3-4.6); Glucose 129 mg/dL (74-106); Potassium 3.7 mmol/L (3.5-5.1); Sodium 138 mmol/L (136-145); Total Bilirubin 1.4 mg/dL (0.15-1.2); Total Protein 6.8 g/dL (6.6-8.7)
[2019-07-04] MEDS: docusate sodium 100 mg Capsule PO (08:54)
[2019-07-04] MEDS: allopurinol 300 mg Tablet PO (08:54)
[2019-07-04] MEDS: amlodipine 5 mg Tablet 2.5 MG PO (08:54)
[2019-07-04] MEDS: acetaminophen 500 mg Tablet PO ×2 (08:54→18:01)
[2019-07-04] MEDS: cetirizine 10 mg Tablet PO (09:01)
[2019-07-04] MEDS: atorvastatin 40 mg Tablet 20 MG PO (09:01)
[2019-07-04] MEDS: tamsulosin 0.4 mg Capsule PO (09:01)
[2019-07-04] MEDS: cholecalciferol (vitamin D3) 1,000 unit Tablet 2000 UNIT PO (09:01)
[2019-07-04] MEDS: metformin XR 500 MG Tablet 1000 MG PO (09:01)
[2019-07-04] MEDS: carvedilol 25 mg Tablet PO ×2 (09:01→18:02)
[2019-07-04] MEDS: famotidine 20 mg Tablet PO ×2 (09:01→18:01)
[2019-07-04] MEDS: clopidogrel 75 mg Tablet PO (09:02)
[2019-07-04] MEDS: apixaban 5 mg Tablet PO ×2 (09:07→18:01)
--- NOTE | 2019-07-04 11:19 | MR_ITS ---
WS: [id number] MRA HEAD TECHNIQUE: Axial 3-D TOF images obtained with axial images and axial, sagittal, and coronal 2-D refor matted images. CLINICAL INFORMATION: possible frontal lobe stroke COMPARISON: None. FINDINGS: Distal vertebral arteries are patent. Basilar artery is patent. Normal vascularity to the INSTRUMENT MAINTENANCE SUPERVISOR territo ry bilaterally. Both ICAs are patent at the skull base. Small left A1 segment. Normal vascularity to the YUNG and MCA territory bilaterally. No evidence of high-grade proximal stenosis or aneurysm. MR/MR angio head wo con [id number] IMPRESSION: 1. No evidence of high-grade proximal stenosis or aneurysm. 2. Unremarkable intracranial MRA.
--- NOTE | 2019-07-04 14:29 | PC.CHAP ---
Pastoral Care Encounter/Spiritual Assessment Type of Contact [] Declined resolution specialist visit [] Patient/Family/Request visit [] Outpatient visit [] Follow-up visit [] Physician referral [] Code/Alert [x] Routine visit [] Staff referral [] Actively dying [] Patient sleeping [x] Family support [] [] Out of room [] Palliative care [] [] Receiving care in room [] Pre-surgical visit [] Trauma [] Long length of stay [] ICU visit [] Other: Relational/Emotional Strength [x] Patient feels connected with others/family/visitors/staff [] Distress [] Loneliness/isolation [] Abandonment Spirituality of Patient [x] Person of Cecily [x] Attends Faith of their Cecily [x] Believes in Prayer [x] Reads Bible or Yazidism materials [] There are Spiritual issues to be addressed Traffic Supervisor Interventions [x] Prayer [x] Active listening [x] Non-anxious presence [x] Spiritual/emotional support [] Crisis/trauma care [] Spiritual counseling [] Bereavement support [] Provided bereavement packet [] Provided Bible/devotional materials [] Provided toy/stuffed animal, coloring book to patient or family member [x] Completed spiritual assessment [] Provided Communion [] Anointing/[place] [] Salvation [] Other: Impact on Illness or Injury [] Angry [] Fearful [] Anxious [] Often cries [] Exhaustion [x] Unable to work [x] Unable to attend denominational [] Unable to walk/stand [] Unable to read [x] Unable to drive [] Unable to eat/drink [] Unable to sleep [] Unable to be with family [] Other: Summary was present in room. Patient not too aware of what is happening. Patient is not happy to be stuck in bed. Whenever patient attempted to stand up, alarms wre triggered and nursing staff had to come in and turn them off. This occurred multiple times but patient was not agitated. Time spent with patient 20 minutes
[2019-07-04 16:48] LABS: Glucose Point of Care 128 mg/dL (70-110)
[2019-07-04] MEDS: gabapentin 300 mg Capsule PO (18:01)
--- NOTE | 2019-07-04 19:43 | P.PN_ITS ---
Subjective Subjective: Interval history: Admitted overnight. H&P noted. Lab noted. On evaluation pt is sitting comfortably in bed. Denies any SOB, cough, headache, dizziness, N/V, hemoptysis. Patient is having expressive aphasia. Vitals/I&O/Wt Last Vital Signs Temp 97.6 F 07/04/19 19:23 Pulse 76 07/04/19 19:23 Resp 18 07/04/19 19:23 BP 131/71 07/04/19 19:23 Pulse Ox 92 07/04/19 19:23 07/04/19 07/04/19 07/04/19 06:59 14:59 22:59 Intake Total 0 / 0 480 / 480 Output Total 0 / 0 Balance 0 / 0 480 / 480 Weight last 48 hrs Weight 74.843 kg Weight 74.843 kg Physical Exam Narrative: EXAM NARRATIVE: General: No acute distress, AO x3 HEENT: PERRLA, pupils bilaterally equal and reactive Chest: Normal vesicular breath sounds, no added sounds, equal good air entry bilaterally except in left upper side CVS: S1-S2 regular, no murmurs, no tachycardia, no gallops, no rubs Abdomen: Soft, nontender, no organomegaly, bowel sounds present Const: COMMON NORMALS: oriented x3 Neuro: COMMON NORMALS: oriented x3, CN's II-XII intact bilaterally and moves all extremities COORDINATION/BALANCE: [id number] test normal SPEECH: abnormal speech and expressive aphasia MOTOR EXAM: strength 5/5 throughout COORDINATION: [id number] test normal A&P Assessment and plan (1) Altered mental status: Status: Acute Code(s): R41.82 - Altered mental status, unspecified (2) CVA (cerebral vascular accident): Status: Acute Code(s): I63.9 - Cerebral infarction, unspecified (3) Lung cancer: Status: Chronic Code(s): C34.90 - Malignant neoplasm of unspecified part of unspecified bronchus or lung Additional A&P Information AMS: Resolved. But symptoms s/o CVA vs intracranial metastasis. CVA more likely. Await MRI brain. Will get MRA brain as well. ECHO, carotid doppler awaited. Check Lipid panel, A1c in AM. C/w home dose of plavix , statins and eliquis. PT, OT, [facility] library services assistant consult. Will avoid adding steroids for now till mets confirmed. Continue with tele Continue with other home meds for CAD, COPD Change OHA to ISS FC Cardiac diet Attestations Medical Necessity Statement*: Needs continued stay for CVA Time Spent in Patient Care: 16 - 35 minutes Coding Level of Care Code Acute Sports Book Writer for Moises Fwd Diagnoses Altered mental status R41.82 CVA (cerebral vascular accident) I63.9 Lung cancer C34.90
[2019-07-04 22:39] LABS: Glucose Point of Care 122 mg/dL (70-110)
[2019-07-05] VITALS (7 sets, daily range): BP systolic 126–146; BP diastolic 63–76; PULSE 69–77; RESP 16–20; TEMP 36.5–37.1; O2SAT 90–93
[2019-07-05 03:38] LABS: Chol HDL Ratio 5.21 mg/dL (1.0-5.00); Cholesterol 151 mg/dL (0-200); HDL Cholesterol 29 mg/dL (60-100); LDL Cholesterol Calculated 85 mg/dL (50-129); Triglycerides 186 mg/dL (0-150); VLDL Cholestrol Calculation 37 mg/dL (0-30)
[2019-07-05 03:49] LABS: Estmated Average Glucose 123; Hemoglobin A1C 5.9 % (4.0-6.0)
[2019-07-05] MEDS: sodium chloride 0.9% 1,000 ML 100 ML IV ×2 (05:28→15:42)
[2019-07-05 06:38] LABS: Glucose Point of Care 119 mg/dL (70-110)
[2019-07-05] MEDS: acetaminophen 500 mg Tablet PO ×2 (09:28→17:41)
[2019-07-05] MEDS: clopidogrel 75 mg Tablet PO (09:28)
[2019-07-05] MEDS: amlodipine 5 mg Tablet 2.5 MG PO (09:28)
[2019-07-05] MEDS: cetirizine 10 mg Tablet PO (09:28)
[2019-07-05] MEDS: docusate sodium 100 mg Capsule PO (09:28)
[2019-07-05] MEDS: tamsulosin 0.4 mg Capsule PO (09:28)
[2019-07-05] MEDS: cholecalciferol (vitamin D3) 1,000 unit Tablet 2000 UNIT PO (09:29)
[2019-07-05] MEDS: apixaban 5 mg Tablet PO (09:29)
[2019-07-05] MEDS: atorvastatin 40 mg Tablet 20 MG PO (09:29)
[2019-07-05] MEDS: famotidine 20 mg Tablet PO ×2 (09:29→17:41)
[2019-07-05] MEDS: allopurinol 300 mg Tablet PO (09:29)
[2019-07-05] MEDS: carvedilol 25 mg Tablet PO ×2 (09:29→17:41)
[2019-07-05 12:09] LABS: Glucose Point of Care 137 mg/dL (70-110)
--- NOTE | 2019-07-05 15:27 | PC.CHAP ---
Pastoral Care Encounter/Spiritual Assessment Type of Contact [] Declined staffing analyst visit [] Patient/Family/Request visit [] Outpatient visit [] Follow-up visit [] Physician referral [] Code/Alert [] Routine visit [] Staff referral [] Actively dying [] Patient sleeping [] Family support [] [] Out of room [] Palliative care [] [] Receiving care in room [] Pre-surgical visit [] Trauma [] Long length of stay [] ICU visit [] Other: Relational/Emotional Strength [] Patient feels connected with others/family/visitors/staff [] Distress [] Loneliness/isolation [] Abandonment Spirituality of Patient [x] Person of Cecily [] Attends Yazidi of their Cecily [x] Believes in Prayer [] Reads Bible or Gnosticism materials [] There are Spiritual issues to be addressed Wholesale Loan Processor Interventions [x] Prayer [x] Active listening [] Non-anxious presence [] Spiritual/emotional support [] Crisis/trauma care [] Spiritual counseling [] Bereavement support [] Provided bereavement packet [] Provided Bible/devotional materials [] Provided toy/stuffed animal, coloring book to patient or family member [x] Completed spiritual assessment [] Provided Communion [] Anointing/[place] [] Salvation [] Other: Impact on Illness or Injury [x] Angry [] Fearful [] Anxious [] Often cries [] Exhaustion [] Unable to work [] Unable to attend episcopalian [] Unable to walk/stand [] Unable to read [x] Unable to drive [] Unable to eat/drink [] Unable to sleep [] Unable to be with family [] Other: Summary was upset cause how he had a hard time with stroke affecting him [email or web address] mendez Time spent with patient
[2019-07-05] MEDS: enoxaparin 80 mg/0.8 mL Syringe SUBCUT (15:43)
[2019-07-05 16:42] LABS: Glucose Point of Care 215 mg/dL (70-110)
[2019-07-05] MEDS: gabapentin 300 mg Capsule PO (17:41)
--- NOTE | 2019-07-05 17:55 | P.PN_ITS ---
Subjective Subjective: Interval history: No acute overnight events. MRI showed multifocal patchy areas of acute ischemia involving the YUNG territory bilaterally. Largest infarct is 1 cm. There are additional punctate areas of acute ischemia involving the left cerebellum. Overall this raises concern for hypercoagulable state. Concerning especially since patient is currently on Eliquis. There have been no other new changes. Patient continues to have expressive aphasia. This morning he tried to walk with PT but was extremely dizzy and therefore sat back down. Otherwise no acute events. Medications: Reviewed: Yes Vitals/I&O/Wt Last Vital Signs Temp 97.8 F 07/05/19 15:21 Pulse 69 07/05/19 15:21 Resp 18 07/05/19 15:21 BP 129/69 07/05/19 15:21 Pulse Ox 92 07/05/19 15:21 07/05/19 07/05/19 07/05/19 06:59 14:59 22:59 Intake Total 0 / 1480 600 / 600 1000 / 1600 Output Total 600 / 600 Balance 0 / 1480 0 / 0 1000 / 1000 Weight last 48 hrs Weight 80.796 kg Weight 74.843 kg Weight 74.843 kg Physical Exam Narrative: EXAM NARRATIVE: General: No acute distress, AO x3 HEENT: PERRLA, pupils bilaterally equal and reactive Chest: Normal vesicular breath sounds, no added sounds, equal good air entry CVS: S1-S2 regular, no murmurs, no tachycardia, no gallops, no rubs Abdomen: Soft, nontender, no organomegaly, bowel sounds present Nuero: Awake alert and oriented. moves all extremities, slurred speech and expressive aphasia Data Other Data: Other data: Carotid artery Doppler CONCLUSIONS Right ICA stenosis <50%. Moderate atheromatous plaque right carotid bulb/ICA. Left ICA stenosis <50%. Moderate atheromatous plaque left carotid bulb/ICA. Velocities are unchanged since 01/06/18 Normal antegrade Doppler flow noted in the right vertebral artery. Normal antegrade Doppler flow noted in the left vertebral artery. Magnetic Resonance Report Signed Patient: Lynnette Sevilla #: [id number] : 2Acct#:[id number] Age/Sex: 79 / MADM Date: 07/04/19 Loc: [facility]/Bed: [facility] Attending Dr: Jose Pearson MD Ordering Provider/Ordering MD: Jose Pearson MD Date of Service: 07/04/19 Procedure(s): MR angio head wo con [id number] Accession Number(s): [id number] Report Number: [id number] WS: [id number] MRA HEAD TECHNIQUE: Axial 3-D TOF images obtained with axial images and axial, sagittal, and coronal 2-D reformatted images. CLINICAL INFORMATION: possible frontal lobe stroke COMPARISON: None. FINDINGS: Distal vertebral arteries are patent. Basilar artery is patent. Normal vascularity to the RIBBING MACHINE OPERATOR territory bilaterally. Both ICAs are patent at the skull base. Small left A1 segment. Normal vascularity to the YUNG and MCA territory bilaterally. No evidence of high-grade proximal stenosis or aneurysm. MR/MR angio head wo con [id number] IMPRESSION: 1. No evidence of high-grade proximal stenosis or aneurysm. 2. [place] [address] Magnetic Resonance Report Signed Patient: Lynnette Sevilla #: [id number] : 2Acct#:[id number] Age/Sex: 79 / MADM Date: 07/04/19 Loc: [facility]/Bed: [facility] Attending Dr: Jose Pearson MD Ordering Provider/Ordering MD: Stuart Mariscal DO Date of Service: 07/04/19 Procedure(s): MR head wo/w con [id number] Accession Number(s): [id number] Report Number: [id number] WS: [id number] MRI HEAD WITH CONTRAST TECHNIQUE: Sagittal T1, T2 axial, T2 axial FLAIR, axial susceptibility weighted imaging, axial diffusion weighted images, and coronal T2 images were obtained. Pre and post-T1 axial and post T1 coronal images. ADC and FSPGR images. CLINICAL INFORMATION: cva FINDINGS: Images moderately degraded by patient motion. Numerous patchy foci of restricted diffusion within the parasagittal frontal and parietal lobes consistent with acute ischemia in the YUNG territory. This involves the genu of the corpus callosum. Largest area of ischemia measures approximately 1 CM. Additional tiny punctate foci of restricted diffusion involving the left cerebellum consistent with a tiny areas of acute ischemia. Brainstem appears normal. Moderate small vessel changes. Moderate parenchymal volume loss. Mild edema associated with the larger areas of ischemia. No mass effect or midline shift. No hydrocephalus. Chronic infarct left cerebellum. Normal vascular flow voids at the skull base. No extra-axial fluid collections. Mild mucosal thickening ethmoid air cells. Normal optic chiasm and pituitary infundibulum. Moderate symmetric atrophy involving the temporal lobes and hippocampal formations. Post gadolinium images degraded by motion. No gross areas of abnormal enhancement. MR/MR head wo/w con [id number] IMPRESSION: 1. Images moderately degraded by motion artifact. 2. Multifocal patchy areas of acute ischemia involving the YUNG territory bilaterally. Largest infarct measures 1.0 CM. 3. Additional punctate areas of acute ischemia involving the left cerebellum. 4. No evidence of significant mass effect or midline shift. 5. Moderate small vessel changes with moderate parenchymal volume loss. 6. Remainder of exam is limited due to motion. A&P Assessment and plan (1) Altered mental status: Status: Acute Code(s): R41.82 - Altered mental status, unspecified (2) CVA (cerebral vascular accident): Status: Acute Code(s): I63.9 - Cerebral infarction, unspecified (3) Lung cancer: Status: Chronic Code(s): C34.90 - Malignant neoplasm of unspecified part of unspecified bronchus or lung Additional A&P Information 1. Altered mental status manifesting as expressive aphasia. Given findings on MRI of bilateral YUNG territory infarcts and also cerebellar infarct raises concern for embolic phenomenon. MRI of the brain is negative. Carotid Dopplers with less than 50% stenosis of the ICA. No obvious vegetation seen on echocardiogram. Possibility of marantic endocarditis cannot be excluded. 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 This is especially concerning because patient is on Eliquis. We will change his anticoagulation from Eliquis to full dose Lovenox at this time. We will also order for ANGELIQUE to evaluate for marantic endocarditis. Patient is also additionally currently on Plavix and atorvastatin. Neurology consult placed. Continue PT OT speech therapy While overall findings are less likely to represent metastatic disease to the brain, possibility of a paraneoplastic syndrome cannot be excluded. Attestations Medical Necessity Statement*: Remains admitted for the evaluation of multiple CVAs. Coding Level of Care Code Acute Pottery Machine Operator for Chg Fwd Diagnoses Altered mental status R41.82 CVA (cerebral vascular accident) I63.9 Lung cancer C34.90
--- NOTE | 2019-07-05 18:37 | PM.CONSULT ---
Providers/Reason For Consult Consulting Physican/Specialty*: Dr. Dickson Reason for Consult*: Multiple acute strokes Attending Physician: Phyllis Dickson MD Primary Care Provider: Aislinn Beebe NP History of Present Illness History of Present Illness Lynnette Sevilla is a 79 year old man with complaint of confusion and loss of appetite since he arrived here several days ago. He has tiny strokes bilaterally in the anterior cerebral artery distribution, left more than right. I was asked to provide neurologic opinion. 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 He had no sign of metastases and had right upper lobectomy 04/29/2017 showing a low-grade adenocarcinoma measuring 3.2 x 2.4 with penetration into the pleura and lymphovascular space invasion but clear margins. He did well until March 2019 when he was found to have a metastasis in the left femoral neck which was treated with radiation that was completed at the end of May. He has other significant illnesses including coronary disease status post coronary bypass 04/29/2017. He had open reduction and internal fixation of his left hip by Dr. Bermudez 03/17/2019. He has baseline history of hemochromatosis. He came to the emergency department complaining about dizziness 06/28/[address] scan of the head was negative. Over the ensuing weeks he developed further dizziness and confusion and presented with loss of appetite and confusion here. His MRI showed a small stroke in the left anterior cerebral artery distribution corresponding to a small low-attenuation region seen on CT scan of the head and small patchy regions of acute ischemia in the anterior cerebral artery distribution bilaterally. His carotid Doppler showed less than 50% stenosis of either carotid artery. MR angiogram showed no sign of high-grade stenosis in any of the intracranial circulation. His MRI is degraded by motion artifact but diffusion-weighted imaging shows multifocal patchy ischemia in the anterior cerebral artery territory on both sides, left more than right. Dr. Montes also commented on acute ischemic punctate lesions in the left cerebellum. His transthoracic echocardiogram was unremarkable. Meds/Allergies Home Medications and Allergies Home Medications Medication Instructions Recorded Confirmed Type Ozempic See Rx Instructions .ROUTE .COMPLEX 06/28/19 07/03/19 History acetaminophen [Tylenol Extra 500 mg PO BID 06/28/19 07/03/19 History Strength] allopurinol 300 mg PO DAILY 06/28/19 07/03/19 History amlodipine [Norvasc] 2.5 mg PO DAILY 06/28/19 07/03/19 History apixaban [Eliquis] 5 mg PO BID 06/28/19 07/03/19 History carvedilol 25 mg PO BID 06/28/19 07/03/19 History cetirizine [Zyrtec] 10 mg PO DAILY 06/28/19 07/03/19 History cholecalciferol (vitamin D3) 2,000 unit PO DAILY 06/28/19 07/03/19 History [Vitamin D3] clopidogrel [Plavix] 75 mg PO DAILY 06/28/19 07/03/19 History docusate sodium [Colace] 100 - 200 mg PO DAILY 06/28/19 07/03/19 History empagliflozin [Jardiance] 12.5 mg PO DAILY 06/28/19 07/03/19 History famotidine 20 mg PO BID 06/28/19 07/03/19 History gabapentin 300 mg PO QPM 06/28/19 07/03/19 History lovastatin 40 mg PO DIRECTED 06/28/19 07/03/19 History metformin 1,000 mg PO BID 06/28/19 07/03/19 History omega 9-bkh-uhg-fish oil [Fish Oil] 1 cap PO DAILY 06/28/19 07/03/19 History tamsulosin [Flomax] 0.4 mg PO DAILY 06/28/19 07/03/19 History vitamin F05-pqcng acid 1 tab PO DAILY 06/28/19 07/03/19 History Allergies Allergy/AdvReac Type Severity Reaction Status Date / Time naproxen [From Aleve] Allergy ALGY-Hives Verified 06/28/19 11:03 Penicillins Allergy ALGY-Hives Verified 06/28/19 11:03 Current Medications Current Medications Generic Name Dose Route Start Last Admin Trade Name Freq PRN Reason Stop Dose Admin Acetaminophen 500 mg 07/04/19 09:00 07/05/19 17:41 Tylenol PO 500 mg BID ASHLEY Administration Allopurinol 300 mg 07/04/19 09:00 07/05/19 09:29 Zyloprim PO 300 mg DAILY ASHLEY Administration Amlodipine Besylate 2.5 mg 07/04/19 09:00 07/05/19 09:28 Norvasc PO 2.5 mg DAILY ASHLEY Administration Atorvastatin Calcium 20 mg 07/04/19 09:00 07/05/19 09:29 Lipitor PO 20 mg DAILY ASHLEY Administration Carvedilol 25 mg 07/04/19 09:00 07/05/19 17:41 Coreg PO 25 mg BID ASHLEY Administration Cetirizine HCl 10 mg 07/04/19 09:00 07/05/19 09:28 Zyrtec PO 10 mg DAILY ASHLEY Administration Clopidogrel Bisulfate 75 mg 07/04/19 09:00 07/05/19 09:28 Plavix PO 75 mg DAILY ASHLEY Administration Docusate Sodium 100 mg 07/04/19 09:00 07/05/19 09:28 Colace PO 100 mg DAILY ASHLEY Administration Enoxaparin Sodium 80 mg 07/05/19 15:00 07/05/19 15:43 Lovenox SUBCUT 80 mg Q12H ASHLEY Administration Famotidine 20 mg 07/04/19 09:00 07/05/19 17:41 Pepcid Tab PO 20 mg BID ASHLEY Administration Gabapentin 300 mg 07/04/19 18:00 07/05/19 17:41 Neurontin PO 300 mg QPM ASHLEY Administration Sodium Chloride 1,000 mls @ 100 mls/hr 07/04/19 03:25 07/05/19 15:42 Sodium Chloride 0.9% IV 100 mls/hr .Q10H ASHLEY Administration Insulin Aspart 0 unit 07/04/19 21:00 07/04/19 23:35 Novolog SUBCUT Not Given BEDTIME [facility] Protocol Insulin Aspart 0 unit 07/04/19 12:00 07/05/19 17:41 Novolog SUBCUT 6 unit TIDWM ASHLEY Administration Protocol Non-Formulary Medication 1 cap 07/04/19 09:00 07/05/19 09:41 [place] 5-Sdn-Bbr-Fish Oil [Fish Oil] PO 1 cap DAILY ASHLEY Administration Non-Formulary Medication 1 tab 07/04/19 09:00 07/05/19 11:48 Vitamin L78-Fuisd Acid PO Not Given DAILY ASHLEY Tamsulosin HCl 0.4 mg 07/04/19 09:00 07/05/19 09:28 Flomax PO 0.4 mg DAILY ASHLEY Administration Vitamin D 2,000 unit 07/04/19 09:00 07/05/19 09:29 Vitamin D3 PO 2,000 unit DAILY ASHLEY Administration PFSH Acute PFSH: Statuses (acute, chronic, etc) shown below reflect problem list status as previously entered and may not be historically accurate Social History Smoking and tobacco status: unknown if ever smoked Vitals/I&O/Wt Last Vital Signs Temp 97.8 F 07/05/19 15:21 Pulse 69 07/05/19 15:21 Resp 18 07/05/19 15:21 BP 129/69 07/05/19 15:21 Pulse Ox 92 07/05/19 15:21 07/05/19 07/05/19 07/05/19 06:59 14:59 22:59 Intake Total 0 / 1480 600 / 600 1000 / 1600 Output Total 600 / 600 Balance 0 / 1480 0 / 0 1000 / 1000 Weight last 48 hrs Weight 178 lb 2 oz Weight 165 lb Weight 165 lb Physical Exam Narrative: EXAM NARRATIVE: GENERAL: The patient was [well-nourished] with a[healthy appearance] and [appropriately groomed]. MENTAL STATUS: He had intermittent receptive difficulty. He could tell me the month but when asked for the date he did a circuitous discussion of what time it was. He had expressive a aphasia that was variable. He could repeat a simple and a complex phrase and follow a 3 step command but had hesitating and frustrated speech pattern on spontaneous speech. He had paraphasic errors that were frustrating to him. [No difficulty following a complex command]. [The affect was anxious and he had perseverative material that was mildly of concern and slightly aggressive]. CRANIAL NERVES: Visual hickey were full to confrontation, direct and consensual. Extraocular movements were full without nystagmus. Both slow pursuit and saccadic eye movements were normal. PERRLA. Face was symmetric at rest and with grimace. [Facial sensation was intact in all three distributions of the fifth cranial nerve bilaterally to touch]. . Tongue and palate were midline at rest and with protrusion of the tongue and elevation of the palate. Shoulders were symmetric at rest and with shoulder shrug. MOTOR: There was no drift of the extended arms. Fine movements in the hands were rapid and symmetric. Power was 5/5 in all the muscles of all four extremities tested individually. Bulk and tone were normal. SENSATION: [Pin, touch, vibration intact in the distal extremities.] COORDINATION: He was able to get up from the bed and stand at the bedside with assistance. He tilted a little bit to the left but did not fall. He could stand with the eyes open, arms extended and feet together without falling. He was no worse with the eyes closed. DEEP TENDON REFLEXES: [2/4 throughout.] [Toes downgoing bilaterally.] He could march at the bedside. HEENT: Normocephalic without dysmorphic features. Conjunctivae were not injected and sclerae were nonicteric. Plethoric complexion. NECK: Carotid upstroke was strong bilaterally without bruits. The thyroid was not enlarged and there were no palpable lymph nodes. CHEST: Clear to auscultation. CARDIOVASCULAR: The heart sounds were normal without murmur or gallop. Regular rate and rhythm. Peripheral pulses were 2+ throughout in the distal extremities. EXTREMITIES: There was no edema or cyanosis. The skin was unremarkable. The spine exhibited normal thoracic kyphosis and normal lumbar lordosis without deformities. A&P Assessment and plan (1) Cerebral infarction involving anterior cerebral artery: This is a 79-year-old man with subacute onset of mental status changes with mixed receptive and expressive a aphasia due to left anterior cerebral artery stroke and multiple strokes within bilateral anterior cerebral artery distribution as well as a cerebellar stroke that apparently presented with dizziness week ago. He has multiple strokes in multiple vascular distributions and therefore cardiac source is likely but cancer related thrombosis is also a strong consideration. I talked with Dr. Chadwick at length about this patient's cancer history. He had lung cancer diagnosed 2 years ago and the margins were clear and all was well until he presented with a DVT in January 2019. Because he had the DVT that was not precipitated, a search for cancer was initiated and a lytic lesion was found in his femur and treated with radiation. Clearly the DVT was cancer related and it is very likely that his current multiple strokes are related to underlying ongoing lung cancer either through marantic endocarditis or cancer related thrombosis (Trousseau's syndrome). It would be unlikely that he has aortic arch syndrome. Dr. Dickson already talked with Dr. Chadwick and made a decision to change from Eliquis to lovastatin in hopes of better effect, although this patient was already on appropriate treatment with Eliquis and additional clopidogrel at the time of his multiple strokes, indicating a very poor prognosis. I am concerned that this patient's behavior may become problematic as he is very frustrated by his inability to speak. I talked with his daughter, Samara, at some length and talked with the patient about the plan for transesophageal echocardiogram which Dr. Pena is planning to do. I talked with Dr. Dickson. I talked with Dr. Chadwick. This patient's prognosis is very poor. If he can be discharged, recommend PET scan repeat at soonest convenience at that will need to be done at [facility] because of his insurance. If he is able to ambulate, which he probably can, he should be able to go home. I have spent several hours in the service of this patient this evening. Thanks for asking me to participate in his care. 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
[2019-07-05 18:51] LABS: Basophils # 0.1 10^3/uL (0.0-0.1); Basophils % 0.8 %; Eosinophils # 0.3 10^3/uL (0.0-0.8); Eosinophils % 5.1 %; Hematocrit 48.9 % (42.0-52.0); Hemoglobin 16.6 g/dL (11.7-16.6); Lymphocytes # 1.4 10^3/uL (0.8-4.8); Mean Corpuscular HGB Conc 33.9 g/dL (30.0-36.0); Mean Corpuscular Hemoglobin 30.9 pg (28.0-34.0); Mean Corpuscular Volume 91.1 fL (80-94); Mean Platelet Volume 10.9 fL (7.4-10.4); Monocytes # 0.7 10^3/uL (0.2-0.9); Monocytes % 11.2 %; Neutrophils % 61.6 %; Nucleated Red Blood Cells % 0 %; Platelet Count 51 10^3/cmm (130-400); Red Blood Count 5.37 10^6/uL (4.1-5.3); Red Cell Distribution Width 13.1 % (12.1-15.1); White Blood Count 6.5 10^3/uL (4.0-10.0)
[2019-07-05 21:37] LABS: Glucose Point of Care 146 mg/dL (70-110)
[2019-07-05 22:09] LABS: Slide Review Slide Review Perform
[2019-07-06] VITALS (11 sets, daily range): BP systolic 115–153; BP diastolic 60–84; PULSE 70–107; RESP 16–20; TEMP 36.4–36.8; O2SAT 90–98
[2019-07-06] MEDS: sodium chloride 0.9% 1,000 ML 100 ML IV ×2 (01:58→15:08)
[2019-07-06] MEDS: enoxaparin 80 mg/0.8 mL Syringe SUBCUT ×2 (02:03→15:08)
--- NOTE | 2019-07-06 03:04 | PC.NURSE ---
CALLED CENTRALIZED SCHEDULING AND LEFT VOICEMAIL ON 07/06/2019 AT 0200 TO SET UP PATIENTS ANGELIQUE SCAN FOR IN THE MORNING.
[2019-07-06 06:46] LABS: Basophils # 0.1 10^3/uL (0.0-0.1); Basophils % 0.8 %; Eosinophils # 0.3 10^3/uL (0.0-0.8); Eosinophils % 5.2 %; Hematocrit 46.2 % (42.0-52.0); Lymphocytes # 1.4 10^3/uL (0.8-4.8); Lymphocytes % 21.3 %; Mean Corpuscular HGB Conc 34.6 g/dL (30.0-36.0); Mean Corpuscular Hemoglobin 31.1 pg (28.0-34.0); Mean Corpuscular Volume 89.9 fL (80-94); Mean Platelet Volume 11.5 fL (7.4-10.4); Monocytes # 0.7 10^3/uL (0.2-0.9); Monocytes % 11.3 %; Neutrophils % 61.1 %; Nucleated Red Blood Cells % 0 %; Platelet Count 64 10^3/cmm (130-400); Red Blood Count 5.14 10^6/uL (4.1-5.3); Red Cell Distribution Width 12.9 % (12.1-15.1); White Blood Count 6.6 10^3/uL (4.0-10.0)
[2019-07-06 06:54] LABS: Alanine Aminotransferase 12 U/L (0-41); Albumin Level 4.1 g/dL (3.5-5.2); Alkaline Phosphatase 50 IU/L (40-130); Anion Gap 14.6 (5-19); Aspartate Amino Transferase 17 U/L (0-40); Blood Urea Nitrogen 16 mg/dL (8-23); Calcium 9.6 mg/Dl (8.8-10.2); Carbon Dioxide 25 mmol/L (22-29); Chloride 106 mmol/L (98-107); Globulin 2.4 g/dL (1.3-4.6); Glucose 113 mg/dL (74-106); Potassium 3.6 mmol/L (3.5-5.1); Sodium 142 mmol/L (136-145); Total Bilirubin 1.2 mg/dL (0.15-1.2); Total Protein 6.5 g/dL (6.6-8.7)
[2019-07-06] MEDS: amlodipine 5 mg Tablet 2.5 MG PO (09:02)
[2019-07-06] MEDS: clopidogrel 75 mg Tablet PO (09:02)
[2019-07-06] MEDS: cholecalciferol (vitamin D3) 1,000 unit Tablet 2000 UNIT PO (09:03)
[2019-07-06] MEDS: acetaminophen 500 mg Tablet PO (09:03)
[2019-07-06] MEDS: docusate sodium 100 mg Capsule PO (09:03)
[2019-07-06] MEDS: famotidine 20 mg Tablet PO (09:03)
[2019-07-06] MEDS: carvedilol 25 mg Tablet PO (09:03)
[2019-07-06] MEDS: atorvastatin 40 mg Tablet 20 MG PO (09:03)
--- NOTE | 2019-07-06 09:03 | P.PN_ITS ---
Subjective Subjective: Interval history: No acute overnight events. This morning patient is calm and in no acute distress. His family is around him. Medications: Reviewed: Yes Vitals/I&O/Wt Last Vital Signs Temp 97.6 F 07/06/19 08:00 Pulse 107 H 07/06/19 08:00 Resp 20 H 07/06/19 08:00 BP 144/82 07/06/19 08:00 Pulse Ox 93 07/06/19 08:00 07/05/19 07/06/19 07/06/19 22:59 06:59 14:59 Intake Total 1720 / 2320 1000 / 3320 Balance 1720 / 1720 1000 / 2720 Weight last 48 hrs Weight 80.796 kg Physical Exam Narrative: EXAM NARRATIVE: General: No acute distress, AO x3 HEENT: PERRLA, pupils bilaterally equal and reactive Chest: Normal vesicular breath sounds, no added sounds, equal good air entry CVS: S1-S2 regular, no murmurs, no tachycardia, no gallops, no rubs Abdomen: Soft, nontender, no organomegaly, bowel sounds present Nuero: Awake alert and oriented. moves all extremities, slurred speech and expressive aphasia Data Micro: Micro: Microbiology 07/06/19 05:30 Blood Culture - Pr eliminary Blood SPECIMEN [facility] 07/06/19 05:06 Blood Culture - Pr eliminary Blood SPECIMEN [facility] A&P Assessment and plan (1) Altered mental status: Status: Acute Code(s): R41.82 - Altered mental status, unspecified (2) CVA (cerebral vascular accident): Status: Acute Code(s): I63.9 - Cerebral infarction, unspecified (3) Lung cancer: Status: Chronic Code(s): C34.90 - Malignant neoplasm of unspecified part of unspecified bronchus or lung Additional A&P Information 1. Altered mental status manifesting as expressive aphasia. Given findings on MRI of bilateral YUNG territory infarcts and also cerebellar infarct raises concern for embolic phenomenon. MRA without any focal stenosis. Carotid Dopplers with less than 50% stenosis of the ICA. No obvious vegetation seen on echocardiogram. Possibility of marantic endocarditis cannot be excluded. Patient is planned to undergo a ANGELIQUE today to further look for this latter possibility. 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 Anticoagulation changed from from Eliquis to full dose Lovenox. We will closely monitor thrombocytopenia at 66 today. No overt signs of bleeding at any site. Neurology consult appreciated Continue PT OT speech therapy While overall findings are less likely to represent metastatic disease to the brain, possibility of a paraneoplastic syndrome cannot be excluded. Attestations Medical Necessity Statement*: ANGELIQUE today to evaluate for marantic endocarditis. 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
[2019-07-06] MEDS: cetirizine 10 mg Tablet PO (09:04)
[2019-07-06] MEDS: tamsulosin 0.4 mg Capsule PO (09:05)
[2019-07-06] MEDS: allopurinol 300 mg Tablet PO (09:07)
--- NOTE | 2019-07-06 10:27 | PC.OT ---
OT EVALUATION ATTEMPTED. FAMILY REPORTS THAT THE PATIENT IS TIRED AND HAS JUST RETURNED TO BED. REQUESTING TO LET HIM REST . WILL ATTEMPT AGAIN IN P.M.
[2019-07-06 12:54] LABS: Glucose Point of Care 121 mg/dL (70-110)
--- NOTE | 2019-07-06 16:06 | P.ANES_ITS ---
Pre-Anesthetic Assessment Pre-Anesthetic Assessment: Height/Weight: Height 1.73 m Weight 80.796 kg Temp Pulse Resp BP Pulse Ox 98.2 F 70 18 146/71 91 07/06/19 11:51 07/06/19 11:51 07/06/19 11:51 07/06/19 11:51 07/06/19 11:51 Preop Diagnosis: CVA Proposed Procedure: Operation Date: 07/06/19 16:30 Proposed Procedures p ANGELIQUE (Transesophageal Echocardiogram)(Not Applicable) - Gabriel Merchant MD Was Beta Anny taken within 24 hours: Yes Last intake: NPO since MN Last Intake: 23:00 Social: Social History: No alcohol and No tobacco Exam: Pre-Anes Outpt Exam: alert, oriented x 3, clear to auscultation bilaterally and regular rate & rhythm Airway: Submandibular: WNL Cervical ROM: WNL MP: 2 Dentition: False Pulmonary: Pulmonary: COPD and JACK CV/HEM: CV/HEM: CAD and HTN Comments: CABG 2008. No CP/SOB since : : None reported Hepatic: Hepatic: None reported GI: GI: None reported Metabolic: Metabolic: DM Musc/skel: Musc/skel: Lower Back Pain and OA/DJD Neuropsych: Neuropsych: CVA Anesthetic Plan: ASA status: III Anesthesia: Anesthesia Evaluation and MAC Risk of > 500 ml blood loss (7ml/kg in children): No Meds/Allergies Current Medications: Current Medications Generic Name Dose Route Start Last Admin Trade Name Freq PRN Reason Stop Dose Admin Acetaminophen 500 mg 07/04/19 09:00 07/06/19 09:03 Tylenol PO 500 mg BID ASHLEY Administration Allopurinol 300 mg 07/04/19 09:00 07/06/19 09:07 Zyloprim PO 300 mg DAILY ASHLEY Administration Amlodipine Besylat e 2.5 mg 07/04/19 09:00 07/06/19 09:02 Norvasc PO 2.5 mg DAILY ASHLEY Administration Atorvastatin Calci um 20 mg 07/04/19 09:00 07/06/19 09:03 Lipitor PO 20 mg DAILY ASHLEY Administration Carvedilol 25 mg 07/04/19 09:00 07/06/19 09:03 Coreg PO 25 mg BID ASHLEY Administration Cetirizine HCl 10 mg 07/04/19 09:00 07/06/19 09:04 Zyrtec PO 10 mg DAILY ASHLEY Administration Clopidogrel Bisulf ate 75 mg 07/04/19 09:00 07/06/19 09:02 Plavix PO 75 mg DAILY ASHLEY Administration Docusate Sodium 100 mg 07/04/19 09:00 07/06/19 09:03 Colace PO 100 mg DAILY ASHLEY Administration Enoxaparin Sodium 80 mg 07/05/19 15:00 07/06/19 15:08 Lovenox SUBCUT 80 mg Q12H ASHLEY Administration Famotidine 20 mg 07/04/19 09:00 07/06/19 09:03 Pepcid Tab PO 20 mg BID ASHLEY Administration Gabapentin 300 mg 07/04/19 18:00 07/05/19 17:41 Neurontin PO 300 mg QPM ASHLEY Administration Sodium Chloride 1,000 mls @ 100 m ls/hr 07/04/19 03:25 07/06/19 15:08 Sodium Chloride 0.9% IV 100 mls/hr .Q10H ASHLEY Administration Insulin Aspart 0 unit 07/04/19 21:00 07/05/19 21:31 Novolog SUBCUT Not Given BEDTIME ASHLEY Protocol Insulin Aspart 0 unit 07/04/19 12:00 07/06/19 12:13 Novolog SUBCUT Not Given TIDWM [facility] Protocol Non-Formulary Medi cation 1 cap 07/04/19 09:00 07/06/19 09:07 [place] 3-Dha-Epa- Fish Oil [Fish Oil ] PO Not Given DAILY ASHLEY Non-Formulary Medi cation 1 tab 07/04/19 09:00 07/06/19 09:06 Vitamin A53-Sbun c Acid PO Not Given DAILY ASHLEY Tamsulosin HCl 0.4 mg 07/04/19 09:00 07/06/19 09:05 Flomax PO 0.4 mg DAILY ASHLEY Administration Vitamin D 2,000 unit 07/04/19 09:00 07/06/19 09:03 Vitamin D3 PO 2,000 unit DAILY ASHLEY Administration PFSH Anesthesia PFSH: Social History Smoking and tobacco status: unknown if ever smoked Data Anesthesia CBC & Chem 7: 07/06/19 05:06 07/06/19 05:06 Other Labs: Laboratory Results - last 48 hr 07/04/19 07/04/19 07/05/19 16:34 21:56 02:35 WBC RBC Hgb Hct MCV MCH MCHC RDW Plt Count MPV Neut % (Auto) Lymph % (Auto) [place] % (Auto) Eos % (Auto) Baso % (Auto) Neut # (Auto) Lymph # (Auto) [place] # (Auto) Eos # (Auto) Baso # (Auto) Nucleated RBC % (auto) Nucleated RBCs # Sodium Potassium Chloride Carbon Dioxide Anion Gap BUN Creatinine Glucose POC Glucose 128 122 Estimat Average Glucose 123 Hemoglobin A1c 5.9 Calcium Total Bilirubin AST ALT Alkaline Phosphatase Total Protein Albumin Globulin Triglycerides Cholesterol LDL Cholesterol, Calc Total VLDL Cholesterol HDL Cholesterol Cholesterol/HDL Ratio 07/05/19 07/05/19 07/05/19 02:35 02:35 06:26 WBC 6.5 RBC 5.37 H Hgb 16.6 Hct 48.9 MCV 91.1 MCH 30.9 MCHC 33.9 RDW 13.1 Plt Count 51 L MPV 10.9 H Neut % (Auto) 61.6 Lymph % (Auto) 21.0 [place] % (Auto) 11.2 Eos % (Auto) 5.1 Baso % (Auto) 0.8 Neut # (Auto) 4.0 Lymph # (Auto) 1.4 [place] # (Auto) 0.7 Eos # (Auto) 0.3 Baso # (Auto) 0.1 Nucleated RBC % (auto) 0 Nucleated RBCs # 0.0 Sodium Potassium Chloride Carbon Dioxide Anion Gap BUN Creatinine Glucose POC Glucose 119 Estimat Average Glucose Hemoglobin A1c Calcium Total Bilirubin AST ALT Alkaline Phosphatase Total Protein Albumin Globulin Triglycerides 186 H Cholesterol 151 LDL Cholesterol, Calc 85 Total VLDL Cholesterol 37 H HDL Cholesterol 29 L Cholesterol/HDL Ratio 5.21 H 07/05/19 07/05/19 07/05/19 11:23 16:27 21:12 WBC RBC Hgb Hct MCV MCH MCHC RDW Plt Count MPV Neut % (Auto) Lymph % (Auto) [place] % (Auto) Eos % (Auto) Baso % (Auto) Neut # (Auto) Lymph # (Auto) [place] # (Auto) Eos # (Auto) Baso # (Auto) Nucleated RBC % (auto) Nucleated RBCs # Sodium Potassium Chloride Carbon Dioxide Anion Gap BUN Creatinine Glucose POC Glucose 137 215 146 Estimat Average Glucose Hemoglobin A1c Calcium Total Bilirubin AST ALT Alkaline Phosphatase Total Protein Albumin Globulin Triglycerides Cholesterol LDL Cholesterol, Calc Total VLDL Cholesterol HDL Cholesterol Cholesterol/HDL Ratio 07/06/19 07/06/19 07/06/19 05:06 05:06 11:46 WBC 6.6 RBC 5.14 Hgb 16.0 Hct 46.2 MCV 89.9 MCH 31.1 MCHC 34.6 RDW 12.9 Plt Count 64 L MPV 11.5 H Neut % (Auto) 61.1 Lymph % (Auto) 21.3 [place] % (Auto) 11.3 Eos % (Auto) 5.2 Baso % (Auto) 0.8 Neut # (Auto) 4.0 Lymph # (Auto) 1.4 [place] # (Auto) 0.7 Eos # (Auto) 0.3 Baso # (Auto) 0.1 Nucleated RBC % (auto) 0 Nucleated RBCs # 0.0 Sodium 142 Potassium 3.6 Chloride 106 Carbon Dioxide 25 Anion Gap 14.6 BUN 16 Creatinine 0.9 Glucose 113 H POC Glucose 121 Estimat Average Glucose Hemoglobin A1c Calcium 9.6 Total Bilirubin 1.2 AST 17 ALT 12 Alkaline Phosphatase 50 Total Protein 6.5 L Albumin 4.1 Globulin 2.4 Triglycerides Cholesterol LDL Cholesterol, Calc Total VLDL Cholesterol HDL Cholesterol Cholesterol/HDL Ratio Micro: Microbiology 07/06/19 05:30 Blood Culture - Preliminary Blood SPECIMEN COLLECTED 07/06/19 05:06 Blood Culture - Preliminary Blood SPECIMEN COLLECTED Cardiac Studies: No Data to Display
--- NOTE | 2019-07-06 16:22 | PC.NURSE ---
This procedure , due to logistics, will be done in OPS.
--- NOTE | 2019-07-06 16:30 | USCV_ITS ---
Lynnette Sevilla Age: 79 Gender: M : 1940 Exam Date: 07/06/2019 16:21 Ordering Phys: Phyllis Dickson MD Technologist: Nahomi Andrade Exam Location: [facility] [place] Indication: ? endocarditis BP: 151 / 77 HR: Rhythm: Sinus Technical Quality: Fair MEASUREMENTS (Male / Female) Normal Values Medications Patient given IV sedation by anesthesia service, for details please refer to the anesthesia report. Complications Patient tolerated procedure well. Proc. Components ANGELIQUE was performed at multiple levels. The procedure was performed in the outpatient surgical suite FINDINGS Left Ventricle Normal left ventricular size and systolic function, EF around 55% Right Ventricle Normal size ejection fraction Right Atrium Normal right atrial size. Left Atrium Appears to be of normal size LA Appendage Normal size and contractility of the left atrial appendage. IA Septum Intact interatrial septum with no evidence of any ASD or patent foramen ovale, based on the color flow Doppler examination and saline contrast injection Mitral Valve Moderate prolapse of the P2 scallop.mild mitral valve regurgitation. Aortic Valve Thickened aortic valve. No masses or vegetations noted Tricuspid Valve No mass or vegetations noted Mild tricuspid valve regurgitation. Pulmonic Valve No gross abnormalities noted Pericardium No pericardial effusion. Aorta Normal aortic root. No unstable plaques in the ascending aorta. The arch of the aorta could not be visualized well because of some technical issues CONCLUSIONS Normal left ventricular size and systolic function, EF around 55%. 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 Thickened aortic valve. No masses or vegetations noted. Mild tricuspid valve regurgitation. Intact interatrial septum with no evidence of any ASD or patent foramen ovale. Normal size and contractility of the left atrial appendage. No intracavitary masses. No similar previous studies available for comparison Dr Gabriel Merchant MD [facility] (Electronically Signed) Final Date: 06 July 2019 20:52 S
--- NOTE | 2019-07-06 17:19 | ANE.PACU ---
 Inpatient post-anesthesia follow up: Airway intact: Yes Vital signs: Temperature 98.2 F Pulse Rate [Right Radial] 77 Pulse Rate 79 Respiratory Rate 16 Blood Pressure [Ri ght Arm] 147/70 Blood Pressure 165/88 Pulse Oximetry 96 Oxygen Delivery Me thod Room Air Oxygen Flow Rate Fraction of Inspir ed Oxygen Hydration adequate: Yes Nausea and vomiting: No Pain level: 1 Mental status: Baseline
[2019-07-06 18:39] LABS: Glucose Point of Care 99 mg/dL (70-110)
--- NOTE | 2019-07-06 19:38 | PM.MISC ---
Miscellaneous Note Purpose of Documentation: I was asked to do a ANGELIQUE on this patient who is admitted to the hospital with features of CVA. He had an MRI of the head which revealed multifocal patchy areas of acute ischemia involving the anterior cerebral artery territory bilaterally. Also had additional punctuate areas of acute ischemia involving the left cerebellum. Considering the possibility of a cardiac source of embolization, the ANGELIQUE was requested. I discussed with the patient about the procedure. The risk of aspiration, bleeding, soft tissue injury, perforation of the stomach/esophagus and other concomitant complications were explained to the patient in detail. The patient understood this well and consented to proceed Patient currently has no contraindication for the procedure. He has no dysphagia. No stomach ulcerations or any history of recent GI bleed. On examination, patient is alert and oriented to place and person. He has some amount of expressive aphasia. No ulceration of the oral cavity. No tenderness in the stomach. Lungs are clear. Heart sounds are normal with no S3. We will keep the patient n.p.o. and plan to perform the procedure sometime this evening.
[2019-07-06 23:29] LABS: Glucose Point of Care 243 mg/dL (70-110)
[2019-07-07] VITALS (7 sets, daily range): BP systolic 148–174; BP diastolic 72–78; PULSE 69–77; RESP 18–24; TEMP 36.4–37.1; O2SAT 91–94
[2019-07-07] MEDS: sodium chloride 0.9% 1,000 ML 100 ML IV (02:19)
[2019-07-07] MEDS: enoxaparin 80 mg/0.8 mL Syringe SUBCUT ×2 (02:19→14:06)
[2019-07-07] MEDS: amlodipine 5 mg Tablet 2.5 MG PO (08:00)
[2019-07-07] MEDS: cholecalciferol (vitamin D3) 1,000 unit Tablet 2000 UNIT PO (08:00)
[2019-07-07] MEDS: atorvastatin 40 mg Tablet 20 MG PO (08:01)
[2019-07-07] MEDS: tamsulosin 0.4 mg Capsule PO (08:01)
[2019-07-07] MEDS: famotidine 20 mg Tablet PO (08:02)
[2019-07-07] MEDS: acetaminophen 500 mg Tablet PO (08:02)
[2019-07-07] MEDS: clopidogrel 75 mg Tablet PO (08:02)
[2019-07-07] MEDS: carvedilol 25 mg Tablet PO (08:02)
[2019-07-07] MEDS: allopurinol 300 mg Tablet PO (08:02)
[2019-07-07] MEDS: cetirizine 10 mg Tablet PO (08:02)
[2019-07-07 08:03] LABS: Glucose Point of Care 123 mg/dL (70-110)
[2019-07-07] MEDS: docusate sodium 100 mg Capsule PO (08:03)
--- NOTE | 2019-07-07 11:03 | PC.CHAP ---
Pastoral Care Encounter/Spiritual Assessment Type of Contact [] Declined sailing master visit [x] Patient/Family/Request visit [] Outpatient visit [] Follow-up visit [] Physician referral [] Code/Alert [] Routine visit [] Staff referral [] Actively dying [] Patient sleeping [x] Family support [] [] Out of room [] Palliative care [] [] Receiving care in room [] Pre-surgical visit [] Trauma [] Long length of stay [] ICU visit [] Other: Relational/Emotional Strength [x] Patient feels connected with others/family/visitors/staff [] Distress [] Loneliness/isolation [] Abandonment Spirituality of Patient [x] Person of Cecily [x] Attends Mu-Ism of their Cecily [x] Believes in Prayer [x] Reads Bible or Synagogue materials [] There are Spiritual issues to be addressed [employer] Interventions [x] Prayer [x] Active listening [x] Non-anxious presence [x] Spiritual/emotional support [] Crisis/trauma care [] Spiritual counseling [] Bereavement support [] Provided bereavement packet [] Provided Bible/devotional materials [] Provided toy/stuffed animal, coloring book to patient or family member [x] Completed spiritual assessment [] Provided Communion [] Anointing/Una [] Salvation [] Other: Impact on Illness or Injury [] Angry [] Fearful [] Anxious [] Often cries [] Exhaustion [] Unable to work [] Unable to attend mu-ism [] Unable to walk/stand [] Unable to read [] Unable to drive [] Unable to eat/drink [] Unable to sleep [] Unable to be with family [x] Other: Patient becomes confused easily and will need rehab. Summary Patient is now able to sit in chair by bedside. Patient's states that patient is doing much better and they (family) have witness a great improvement. Vat House Laborer also noted that patient is now able to communicate better but at times still becomes confused. Patient desired to have prayer with family before they start back home. Family lives out of state. Six family members present. Vat House Laborer and patient joined hands as V[employer] House Laborer led in prayer, asking for safe travel for all traveling and for the patient and his to have peace. [employer] House Laborer ask that staff have compassion and caring hands as they care for patient. Patient may be going to rehab sometime today. Time spent with patient 10 min
[2019-07-07 11:16] LABS: Glucose Point of Care 238 mg/dL (70-110)
--- NOTE | 2019-07-07 12:45 | ANE.PACU ---
 Inpatient post-anesthesia follow up: Airway intact: Yes Vital signs: Temperature 97.6 F Pulse Rate [Right Radial] 69 Pulse Rate 79 Respiratory Rate 20 Blood Pressure [Ri ght Arm] 150/72 Blood Pressure 165/88 Pulse Oximetry 94 Oxygen Delivery Me thod Room Air Oxygen Flow Rate Fraction of Inspir ed Oxygen Hydration adequate: Yes Nausea and vomiting: No Mental status: Baseline
[2019-07-07 13:24] LABS: Basophils # 0.1 10^3/uL (0.0-0.1); Basophils % 0.8 %; Eosinophils # 0.3 10^3/uL (0.0-0.8); Eosinophils % 5.1 %; Hematocrit 46.7 % (42.0-52.0); Hemoglobin 16.4 g/dL (11.7-16.6); Lymphocytes # 1.1 10^3/uL (0.8-4.8); Lymphocytes % 17.8 %; Mean Corpuscular HGB Conc 35.1 g/dL (30.0-36.0); Mean Corpuscular Hemoglobin 30.7 pg (28.0-34.0); Mean Corpuscular Volume 87.3 fL (80-94); Monocytes # 0.7 10^3/uL (0.2-0.9); Monocytes % 10.1 %; Neutrophils # 4.2 10^3/uL (1.8-7.7); Neutrophils % 65.9 %; Nucleated Red Blood Cells % 0 %; Platelet Count 96 10^3/cmm (130-400); Red Blood Count 5.35 10^6/uL (4.1-5.3); Red Cell Distribution Width 12.9 % (12.1-15.1); White Blood Count 6.4 10^3/uL (4.0-10.0)
[2019-07-07 13:40] LABS: Alanine Aminotransferase 14 U/L (0-41); Albumin Level 4.4 g/dL (3.5-5.2); Alkaline Phosphatase 51 IU/L (40-130); Anion Gap 16.9 (5-19); Aspartate Amino Transferase 16 U/L (0-40); Blood Urea Nitrogen 14 mg/dL (8-23); Calcium 10.2 mg/Dl (8.8-10.2); Carbon Dioxide 24 mmol/L (22-29); Chloride 105 mmol/L (98-107); Globulin 2.5 g/dL (1.3-4.6); Glucose 179 mg/dL (74-106); Potassium 3.9 mmol/L (3.5-5.1); Sodium 142 mmol/L (136-145); Total Bilirubin 1.6 mg/dL (0.15-1.2); Total Protein 6.9 g/dL (6.6-8.7)
--- NOTE | 2019-07-07 14:04 | PC.SOCIAL ---
IMM Update Pg 2 of IMM given and explained to patient who voiced understanding. Signed, dated, timed, and placed in chart. Copy provided to patient.
[2019-07-07 16:08] LABS: Glucose Point of Care 116 mg/dL (70-110)
--- NOTE | 2019-07-07 19:46 | P.DS_ITS ---
Discharge Providers Date of Admission: 07/04/19 11:25 Date of Discharge: 07/07/19 Attending Provider at Admission: Zak Humphreys DO Attending Provider at Discharge: Phyllis Dickson MD Consults: Neurology: Dr. 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 scanning done during that ER visit was negative. As per , his symptoms have progressively worsened and he is more altered and confused with decreased appetite. During this visit CT done this ER visit shows new focal area of attenuation in the left frontal lobe. He was admitted for further work up for possible acute CVA vs new metastasis. He underwent MRI which showed Multifocal patchy areas of acute ischemia involving the YUNG territory bilaterally. Largest infarct measures 1.0 CM. His carotid doppler, MRA brain and ECHO were unremarkable. He underwent ANGELIQUE to r/o marantic endocarditis which was normal. As patient at presentation was already on Eliquis so he was treated as Eliquis fa ilure. He since admission was thrombopenic but after discussion with patient's outpatient oncologist Dr. Chadwick, and explaining benefits vs possible chances of hemorrhagic conversion and other bleeding risk as he is in thrombogenic state because of cancer he was started on Lovenox at therapeutic dose. He is to follow up with his Dr. Chadwick next week for PET scan to look for any new mets or signs of active malignancy. He is being discharged to SNF in hemodynamically stablle condition with persistent expressive aphasia. Physical Exam Narrative: EXAM NARRATIVE: General: No acute distress, AO x3 HEENT: PERRLA, pupils bilaterally equal and reactive Chest: Normal vesicular breath sounds, no added sounds, equal good air entry CVS: S1-S2 regular, no murmurs, no tachycardia, no gallops, no rubs Abdomen: Soft, nontender, no organomegaly, bowel sounds present Nuero: Awake alert and oriented. moves all extremities, slurred speech and expressive aphasia Discharge Data Data Completed and Pending: Completed Studies During Hospitalization Category Date Time Status CT head wo con* 7 0450 Urgent Cat Scan 07/03/19 23:25 Completed XR chest 1V norma ble [id number] Stat Exams 07/03/19 23:59 Completed MR angio head wo con [id number] Routine MRI 07/04/19 11:19 Completed MR head wo/w con [id number] Urgent MRI 07/04/19 03:25 Completed CV echo complete* [id number] Routine Ultrasound 07/04/19 03:25 Completed CV echo transesop hageal 05484 Routi ne Ultrasound 07/06/19 16:30 Completed US carotid duplex bilateral [CV car otid duplex BI* Ultrasound 07/04/19 03:48 Completed [id number]] Routine Pending at discharge Category Date Time Status Blood Culture AM LABS Lab 07/06/19 05:30 Results Labs from last 24 hours 07/07/19 07/07/19 07/07/19 16:04 12:51 12:51 WBC 6.4 RBC 5.35 H Hgb 16.4 Hct 46.7 MCV 87.3 MCH 30.7 MCHC 35.1 RDW 12.9 Plt Count 96 L MPV 11.0 H Neut % (Auto) 65.9 Lymph % (Auto) 17.8 [place] % (Auto) 10.1 Eos % (Auto) 5.1 Baso % (Auto) 0.8 Neut # (Auto) 4.2 Lymph # (Auto) 1.1 [place] # (Auto) 0.7 Eos # (Auto) 0.3 Baso # (Auto) 0.1 Nucleated RBC % (a uto) 0 Nucleated RBCs # 0.0 Sodium 142 Potassium 3.9 Chloride 105 Carbon Dioxide 24 Anion Gap 16.9 BUN 14 Creatinine 0.9 Glucose 179 H POC Glucose 116 Calcium 10.2 Total Bilirubin 1.6 H AST 16 ALT 14 Alkaline Phosphata se 51 Total Protein 6.9 Albumin 4.4 Globulin 2.5 07/07/19 07/07/19 07/06/19 11:00 07:06 23:23 WBC RBC Hgb Hct MCV MCH MCHC RDW Plt Count MPV Neut % (Auto) Lymph % (Auto) [place] % (Auto) Eos % (Auto) Baso % (Auto) Neut # (Auto) Lymph # (Auto) [place] # (Auto) Eos # (Auto) Baso # (Auto) Nucleated RBC % (a uto) Nucleated RBCs # Sodium Potassium Chloride Carbon Dioxide Anion Gap BUN Creatinine Glucose POC Glucose 238 123 243 Calcium Total Bilirubin AST ALT Alkaline Phosphata se Total Protein Albumin Globulin Vitals: Last Vital Signs Temp 97.6 F 07/07/19 16:34 Pulse 74 07/07/19 15:19 Resp 18 07/07/19 16:34 BP 174/78 07/07/19 15:19 Pulse Ox 91 07/07/19 16:34 Discharge Plan Discharge Patient Disposition: Xfer SNF Condition: Stable Prescriptions: New atorvastatin 40 mg Tablet 20 mg PO DAILY 30 Days Qty: 30 RF: 0 docusate sodium 100 mg Capsule 100 mg PO DAILY Qty: 0 RF: 0 enoxaparin 80 mg/0.8 mL Syringe 80 mg SUBCUT Q12H 30 Days Qty: 60 RF: 0 Continued meclizine 25 mg tablet 25 mg PO QID PRN (Reason: dizziness) Qty: 20 RF: 0 carvedilol 25 mg Tablet 25 mg PO BID RF: 0 cetirizine [Zyrtec] 10 mg Tablet 10 mg PO DAILY RF: 0 clopidogrel [Plavix] 75 mg Tablet 75 mg PO DAILY RF: 0 amlodipine [Norvasc] 5 mg Tablet 2.5 mg PO DAILY RF: 0 acetaminophen [Tylenol Extra Strength] 500 mg Tablet 500 mg PO BID RF: 0 famotidine 20 mg Tablet 20 mg PO BID RF: 0 tamsulosin [Flomax] 0.4 mg Capsule 0.4 mg PO DAILY RF: 0 gabapentin 300 mg Capsule 300 mg PO QPM RF: 0 allopurinol 300 mg Tablet 300 mg PO DAILY RF: 0 metformin 500 mg Tablet Extended Release 24 Hr 1,000 mg PO BID RF: 0 vitamin [id number] acid 0.5-1 mg Tablet 1 tab PO DAILY RF: 0 cholecalciferol (vitamin D3) [Vitamin D3] 2,000 unit Tablet 2,000 unit PO DAILY RF: 0 omega [id number] oil [Fish Oil] 1,000 mg (120 mg-180 mg) Capsule 1 cap PO DAILY RF: 0 Jardiance 25 mg Tablet 12.5 mg PO DAILY RF: 0 Ozempic See Rx Instructions .ROUTE .COMPLEX RF: 0 Discontinued lovastatin 40 mg Tablet 40 mg PO DIRECTED RF: 0 docusate sodium [Colace] 100 mg Capsule 100 - 200 mg PO DAILY RF: 0 Eliquis 5 mg Tablet 5 mg PO BID RF: 0 Discharge Orders: Discharge Order (Routine); Ordered 07/07/19 Ordered By: Phyllis Dickson Referrals: [facility] [Outside] Shorty Chadwick MD [Hospitalist] - 1-3 days (Your appointment with Dr. Chadwick is scheduled for 07/11/19. Please report to his office at 3:00 pm for labs with appointment to follow at 4:30. ) Discharge Diet: As Directed Discharge Activity: As per PT/OT instructions Activity Restrictions/Additional Instructions: Check CBC twice a week for HB and platelet check while on lovenox. Discharge Date/Time: 07/07/19 16:36 Discharge Attestations Time Spent in Discharge Care*: greater than 30 min Specific Discharge Activities: Specific discharge activities: discussing with pcp/other providers, discussing with casework supervisor/social workers/dc planners and evaluating patient/reviewing data Status at Discharge: Cognitive status at discharge: cognitively intact , Behavioral status at discharge: cooperative , Functional status at discharge: independent ambulation Overall status at discharge: patient is not back to baseline (Expressive aphasia) Quality Metrics Clinical Quality Measures During this hospital stay, did patient experience: Stroke Contraindication to Antithrombotic: Antithrombotic prescribed Contraindication to Anticoagulation: Anticoagulation prescribed Contraindication to Statin: Statin prescribed Contraindication to antithrombotic day 2: Medical contraindication Contraindication to tPA: Medical contraindications Reason stroke education not provided: Stroke education provided to patient and Stroke education provided to family/guardian Rehab services assessed: Speech therapy Reason rehab assessment not done: Rehab assessment done Coding Level of Care Code Acute Worm Farmer for Moises Fwd Diagnoses Altered mental status R41.82 CVA (cerebral vascular accident) I63.9 Lung cancer C34.90
--- NOTE | 2019-07-13 14:59 | PC.SOCIAL ---
Sent blood culture result over to [facility] patient care nurse at [facility] showing 1 out of 4 positive for gram positive organism. NO final results yet available and no sensitivities listed. Will follow up on final report and send to facility as well when available. current report sent to fax [phone] per nurse recommendation and confirmation that fax was successfully sent received.
== END 2019-07-07 16:36 | disposition skilled nursing facility (03) | DRG 65 ==
LOC: ER 23:43 → MEDSURG 07-04 02:38
PROVIDERS: Internal Medicine Cardiovascular Disease; Student in an Organized Health Care Education/Training Program; Admitting Provider Internal Medicine; Emergency Provider Emergency Medicine; Family Provider Nurse Practitioner Family; PCP Nurse Practitioner Family; Visit Provider Student in an Organized Health Care Education/Training Program
PROC: (CPT 93312; principal; 2019-07-06 16:30)
DX: I63.522 Cerebral infarction due to unspecified occlusion or stenosis of left anterior cerebral artery (principal); I13.0 Hypertensive heart and chronic kidney disease with heart failure and stage 1 through stage 4 chronic kidney disease, or unspecified chronic kidney disease; I50.32 Chronic diastolic (congestive) heart failure; C79.31 Secondary malignant neoplasm of brain; C79.51 Secondary malignant neoplasm of bone; R47.01 Aphasia; I25.10 Atherosclerotic heart disease of native coronary artery without angina pectoris; E78.5 Hyperlipidemia, unspecified; J44.9 Chronic obstructive pulmonary disease, unspecified; E66.9 Obesity, unspecified; N18.2 Chronic kidney disease, stage 2 (mild); M19.90 Unspecified osteoarthritis, unspecified site; E11.22 Type 2 diabetes mellitus with diabetic chronic kidney disease; E11.51 Type 2 diabetes mellitus with diabetic peripheral angiopathy without gangrene; Z99.81 Dependence on supplemental oxygen; D75.1 Secondary polycythemia; Z86.718 Personal history of other venous thrombosis and embolism; Z86.73 Personal history of transient ischemic attack (TIA), and cerebral infarction without residual deficits; Z85.118 Personal history of other malignant neoplasm of bronchus and lung; Z95.1 Presence of aortocoronary bypass graft; Z79.01 Long term (current) use of anticoagulants
CPT/HCPCS: 12345; 36415; 36416; 70450; 70544; 70553; 71045; 80053; 80061; 80307; 81003; 82009; 82140; 82962; 83036; 83605; 84484; 85025; 85610; 85730; 87040; 87077; 87205; 92522; 93005; 93306; 93312; 93320; 93325; 93880; 96105; 96360; 96361; 96372; 97110; 97112; 97116; 97162; 97165; 97530; 97535; 99221; 99283; A9579; G0378; J1650; J1815; J2704; J7030

== ENCOUNTER 2019-07-11 06:33 | Outpatient (RCR) | payer MEDICARE, SELFPAY ==
[2019-07-11 15:15] LABS: Basophils % 0.4 %; Eosinophils # 0.1 10^3/uL (0.0-0.8); Eosinophils % 1.3 %; Hematocrit 46.2 % (42.0-52.0); Hemoglobin 15.8 g/dL (11.7-16.6); Lymphocytes # 1.2 10^3/uL (0.8-4.8); Lymphocytes % 12.8 %; Mean Corpuscular HGB Conc 34.2 g/dL (30.0-36.0); Mean Corpuscular Hemoglobin 30.3 pg (28.0-34.0); Mean Corpuscular Volume 88.7 fL (80-94); Mean Platelet Volume 10.3 fL (7.4-10.4); Monocytes # 0.8 10^3/uL (0.2-0.9); Monocytes % 8.3 %; Neutrophils % 76.9 %; Nucleated Red Blood Cells % 0 %; Platelet Count 214 10^3/cmm (130-400); Red Blood Count 5.21 10^6/uL (4.1-5.3); Red Cell Distribution Width 12.9 % (12.1-15.1); White Blood Count 9.2 10^3/uL (4.0-10.0)
[2019-07-11 15:29] LABS: Alanine Aminotransferase 248 U/L (0-41); Albumin Level 4.1 g/dL (3.5-5.2); Alkaline Phosphatase 179 IU/L (40-130); Anion Gap 18.1 (5-19); Aspartate Amino Transferase 195 U/L (0-40); Blood Urea Nitrogen 26 mg/dL (8-23); Calcium 10.5 mg/Dl (8.8-10.2); Carbon Dioxide 28 mmol/L (22-29); Chloride 98 mmol/L (98-107); Globulin 3.4 g/dL (1.3-4.6); Glucose 152 mg/dL (74-106); Potassium 4.1 mmol/L (3.5-5.1); Sodium 140 mmol/L (136-145); Total Bilirubin 1.3 mg/dL (0.15-1.2); Total Protein 7.5 g/dL (6.6-8.7)
--- NOTE | 2019-07-11 20:31 | ONC FU_ITS ---
Dr. Chadwick Patient Follow-Up Note Patient: Lynnette Sevilla Unit #: [id number]: [id number] Dicatated By: Shorty Chadwick M.D.Date of Visit:Jul 11, 2019 Onc Med Follow-up/Prog Note Chief Complaint: Hemochromatosis/lung cancer. 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 His disease was stage IB (T2a, N0, M0) at initial diagnosis, but with subsequent progression to stage TIGIST (M1b). He also has hereditary hemochromatosis. In February [address] Tyler with persistent cough. His evaluation included chest CT on 03/04/2017. It showed a spiculated density in the medial aspect of the anterior segment of the right upper lobe. It measured 1.8 x 2.4 x 1.8 cm and it was new compared to a previous study from November 2013. There was no associated mediastinal or hilar adenopathy, and there was no evidence of liver or adrenal metastases. He underwent bronchoscopy on 04/06/2017. There were no endobronchial lesions identified. The lesion was found to be avid by PET/CT. There was no evidence of metastatic involvement. He underwent right upper lobectomy with mediastinal lymph node biopsy on 04/29/2017. Pathology showed low-grade (grade 1-2) adenocarcinoma measuring 3.2 x 2.4 cm. There was penetration into visceral pleura and there was evidence of lymphovascular space invasion. The margins of resection were free, and there was no involvement in 1 mediastinal lymph node, in 1 lymph node at the right mainstem bronchus, and in 2 hilar lymph nodes. He has continued on observation/expectant management following the surgery, as there appeared to be no indication for adjuvant chemotherapy. I had initially seen him in October 2012 in regard to elevated hemoglobin/hematocrit levels and elevated serum iron. His evaluation at that time showed his hemoglobin elevated at 18.1 g with hematocrit 52%. White count and platelet count were normal. The serum iron was in the upper normal range at 145 mcg/dL with transferrin saturation 30.8%. The serum ferritin, though, was elevated at 606 ng/mL. He had additional evaluation including an erythropoietin level which was in the normal range at 12 mIU/mL. A MICHAEL 2 gene mutation study was negative. The HFE gene analysis showed double heterozygosity for the C282Y and the H63D mutations, consistent with hereditary hemochromatosis. He has been managed on a phlebotomy program. His other medical illnesses include hypertension, hyperlipidemia, type 2 diabetes, coronary artery disease, peripheral vascular disease, and degenerative arthritis. He underwent coronary artery bypass surgery in 1996 and he underwent an arterial bypass procedure to the right leg in 1999. In 2013 he was found to have significant hypoxemia. On evaluation he was found to have COPD and obstructive sleep apnea. 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 Also noted was calcific plaque at the origins of the common iliac arteries at 54% on the left and 60% on the right. He has a history of smoking 1-1 1/2 packs of cigarettes daily, but he quit smoking in 1996. INTERIM HISTORY: Surveillance chest CT on 12/07/2018 showed stable postoperative changes from prior right upper lobectomy. There was long-term stability of left upper lower lobe nodules. There was chronic emphysema. There was no evidence for recurrent or metastatic neoplastic process. He continued observation/expectant management for the lung cancer. He had then presented to Dr. Tyler's office with swelling and redness in the left arm, in the area of the antecubital fossa. Venous Doppler of the left arm on 02/11/2019 showed extensive occlusive thrombus in the left basilic vein. All other veins of the left upper extremity appeared free of thrombus. He was started on anticoagulation with apixaban. He was seen here for follow-up on 02/25/2019. He then had a restaging PET/CT on 03/10/2019. It showed interval development of abnormal activity in a lytic lesion in the left femoral neck, suspicious for metastatic disease. There was interval resolution of the small right upper lobe lung mass. There were no other areas of abnormal uptake on that study. With those findings, he was referred to Dr. Chin. On 03/17/2019 he underwent prophylactic open reduction with interval fixation of the left hip. Pathology on the bone fragments did confirm metastatic carcinoma consistent with the previous diagnosis of pulmonary infiltrating adenocarcinoma. Following recovery from the surgery he was seen by Dr. Boggs for palliative radiation. He completed treatment on 04/18/2019 to a total dose of 3900 cGy. He tolerated the treatment well. In the meantime, I had also requested a next generation sequencing study. It was performed on the original lung tumor, as the specimen from the left femur was insufficient for analysis. That study showed low PD-L1 expression at 7%. The mutation burden, though, was high. The tumor was negative for EGFR, BRAF, and KRAS mutations, and it also tested negative for the ALK and ROS1 rearrangements. The NTRK fusion also was not detected. I had seen him for a follow-up visit on 05/02/2019. He had restaging CT scans on 06/01/2019 showed no evidence for recurrent disease in the chest, abdomen, or pelvis. In the setting of a treated, solitary metastasis, he was recommended to continue on observation/expectant management. On 06/28/2019 he was seen in the emergency room with complaints of dizziness. CT of the head with and without contrast showed no acute findings. He was diagnosed with vestibular neuronitis. On 07/04/2019 he was admitted to the hospital after returning to the emergency room with acute mental status changes. His repeat head CT showed a 10 mm focal area of low-attenuation in the left frontal lobe which appeared new from the recent study. Was felt to possibly represent a subacute infarct. Further evaluation with brain MRI showed multifocal patchy areas of acute ischemia involving the YUNG territories bilaterally. The largest area of ischemia measured approximately 1 cm. There was no evidence of mass-effect or midline shift. The clinical presentation appeared most consistent with cancer related hypercoagulability. As it occurred while on a therapeutic dose of apixaban, his anticoagulation was transitioned to therapeutic Lovenox. His echocardiogram showed normal left ventricular cavity size and systolic function with estimated ejection fraction at 60%. There were no significant valvular abnormalities noted. There appeared to be no significant change compared to her previous study from July 2018. His bilateral carotid Doppler studies showed just moderate atheromatous plaque bilaterally. Head MRA showed no evidence of high-grade proximal stenosis or aneurysm. He was discharged to [facility] for rehab. At that point, he was still having significant expressive aphasia, but his confusion had improved significantly. He is seen for a follow-up visit. He says that he is feeling good, though he continues to have difficulty with the expressive a aphasia. He is ambulatory at the correction, and he is getting physical therapy. His ECOG score is 2. He has good appetite. He has no fever or night sweats. He has some chronic sinus drainage. He also complains of dry mouth. He has some shortness of breath. He has only a little bit of cough. He does not complain of chest pain. He has had frequent bowel movements, and yesterday it was actually diarrhea. Bladder function remains adequate. His indicates that he had been complaining of recurrence of pain in his left hip just prior to the onset of the strokes. Since the hospitalization, the pain has completely resolved. He has had no other joint or bone pain. Medications: Acetaminophen Extra Strength 1 (500 mg) Tablet Oral b.i.d., Allopurinol 1 Tablet (of 300 mg) Oral daily, amLODIPine Besylate 0.5 Tablet (of 5 mg) Oral daily, Atorvastatin Calcium 1 Tablet (of 20 mg) Oral daily, B-12 1 Tablet (of 1000 mcg) Tablet Oral daily, Bisacodyl 1 Tablet (of 5 mg) Tablet, enteric coated Oral daily PRN, Carvedilol 1 (25 mg) Tablet Oral b.i.d., Cetirizine HCl 1 Tablet (of 10 mg) Oral daily, Cholecalciferol 1 Capsule (of 2000 Units) Oral daily, Docusate Sodium 1 Tablet (of 100 mg) Oral daily, Dulcolax Milk of Magnesia 30 mL (of 400 mg/5mL) Suspension Oral daily PRN, Enoxaparin Sodium 1 Each (of 80 mg/0.8mL) Subcutaneous daily, Famotidine 1 Tablet (of 20 mg) Tablet Oral b.i.d., Fish Oil 1 (1200 mg) Capsule Oral daily, Gabapentin 1 Tablet (of 300 mg) Oral daily, Jardiance 0.5 Tablet Oral daily, Lovastatin 1 Tablet (of 40 mg) Oral b.i.d., Meclizine HCl 1 Tablet (of 25 mg) Oral daily PRN, MetFORMIN HCl 2 Tablet (of 500 mg) Oral b.i.d., Ozempic (0.25 or 0.5 MG/DOSE) 1 Each (of 2 mg/1.5mL) Subcutaneous q on , Plavix 75 mg - Take 1 Tablet Oral daily, Tamsulosin HCl 1 (0.4 mg) Capsule Oral daily Allergies: PENICILLIN AND ALEVE Review of Systems: Constitutional - His energy is good, but he does have limited activity. He is ambulatory at the correction, and he is getting physical therapy. His appetite is good. He has no fever or night sweats. ECOG score is 2, ENMT - He has chronic sinus congestion/drainage. He complains of dry mouth. No sore throat or difficulty swallowing, Hematologic/Lymphatic - He has some bruising. No other bleeding, Respiratory - He has some shortness of breath. He has only a little bit of cough. No pleuritic pain or hemoptysis, Cardiovascular - No angina pain. No palpitations, Gastrointestinal - No nausea or vomiting. No heartburn or acid reflux. He has frequent stools. Yesterday he had diarrhea. No blood in the stool or black stools, Genitourinary (M) - No dysuria or hematuria. No urinary frequency. No urgency or incontinence, Musculoskeletal - He had starting having pain again in his left hip just prior to his strokes. The pain has since then resolved, Integumentary - No skin complications, Neurologic - No headache or dizziness. He is still having significant expressive aphasia. He has no other focal neurologic symptoms, Psychiatric - No anxiety or depression. No insomnia. Vital Signs: Performed on Jul 11, 2019 16:16 Height - 65.00 in Weight - 172.8 lbs (LOW) BSA - 1.86 sq.m BMI - 28.76 Temperature - 97.4 F (LOW) Pulse - 74 /min Respiration - 19 /min BP - 153/59 mm(hg) (HIGH) O2 Sat - 91 % (LOW) Pain - 0 Physical Examination: Constitutional - He looks pretty good generally, Eyes - Sclerae nonicteric. Conjunctivae clear, ENMT - Mouth is a little dry. There are no lesions noted in the oral cavity, Hematologic/Lymphatic - No cervical, clavicular, or axillary adenopathy, Respiratory - Lungs sound clear with some decrease in air movement bilaterally, Cardiovascular - Heart rhythm is regular. There is no murmur, gallop, or rub noted, Abdomen - Soft. Liver is not enlarged or tender. Spleen is not palpable. There is no abdominal mass or ascites noted and there is no inguinal adenopathy, Extremities - No edema, Neurologic - He still has significant residual expressive aphasia. There are no sensory or motor deficits noted. Lab/Imaging: Test performed on Jul 11, 2019 14:55 Sodium 140 mmol/L Potassium 4.1 mmol/L Chloride 98 mmol/L CO2 28 mmol/L Anion Gap 18.1 BUN 26 mg/dL Creatinine 1.2 mg/dL Cr Clearance (Est) 57.15 mL/min Glucose 152 mg/dL Calcium 10.5 mg/Dl Protein, Total 7.5 g/dL Albumin 4.1 g/dL Globulin 3.4 g/dL Bilirubin, Total 1.3 mg/dL ALT (SGPT) 248 U/L AST (SGOT) 195 U/L WBC 9.2 10 3/uL MCV 88.7 fL MCH 30.3 pg MCHC 34.2 g/dL RDW 12.9 % Platelet Count 214 10 3/cmm MPV 10.3 fL Neutrophils 0.0 10 3/uL Neutrophil % 1.3 % Test performed on Jul 11, 2019 05:53 RBC 5.05 10^12/L HGB 16.1 g/dL HCT 45.8 % Lymphocytes 1.20 10^9/L Monocytes 0.90 10^9/L Eosinophils 0.10 10^9/L Basophils 0.10 10^9/L Manual Lymphocytes 12.7 % Manual Monocytes 9.8 % Manual Eosinophils 1.4 % Manual Basophils 1.1 % Impression: 1. Patient with nonsmall cell cancer (low-grade adenocarcinoma) involving the upper lobe of the right lung, stage IB (T2a, N0, M0). 2. He underwent right upper lobectomy with mediastinal lymph node biopsy on 04/29/2017. 3. He has hereditary hemochromatosis. He was found to be doubly heterozygous for the C282Y and the H63D mutations. He has had a very good response to phlebotomy, with his subsequent ferritin levels maintained at less than 50 ng/mL compared to a pretreatment level of greater than 600. 4. He has underlying lung disease including COPD and obstructive sleep apnea, and he has associated chronic hypoxia. 5. 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 His other medical illnesses include: 6. Hypertension. 7. Hyperlipidemia. 8. Type II diabetes. 9. Coronary artery disease. 10. Peripheral arterial disease. 11. Degenerative arthritis. In January 2019 he had presented with a deep vein thrombosis of the left arm. It appeared to have been an unprovoked thrombosis. He started anticoagulation with apixaban. His restaging PET/CT on 03/10/2019 showed evidence of a single site of metastatic disease in the form of a lytic bone lesion in the left femoral neck. He underwent prophylactic ORIF of the left hip on 03/17/2019. Pathology confirmed metastatic adenocarcinoma. Following recovery from the surgery, he was seen by Dr. Boggs for palliative radiation. He completed treatment on 04/18/2019 to a total dose of 3900 cGy. During that time, he had additional pathologic evaluation with the next generation sequencing study on his primary lung tumor. It showed low PD-L1 expression at 7%. The mutation burden was high. There were no actionable mutations identified. His restaging CT scans on 06/01/2019 showed no evidence for recurrent disease in the chest, abdomen, or pelvis. In the setting of a treated, solitary metastasis, he was recommended to continue on observation/expectant management. He continued anticoagulation with apixaban. On 07/04/2019 he was admitted to the hospital with multiple cerebral infarcts. This appears to have been a manifestation of cancer related hypercoagulability. As it occurred while on a therapeutic dosage of apixaban, his anticoagulation was transitioned to Lovenox. He has since then been transferred to [facility] correction for further rehabilitation. He has residual expressive aphasia, but he appears to be showing good recovery from the strokes. He otherwise appears stable clinically, However, he does have significantly elevated liver enzymes now and the overall clinical picture is highly suspicious for further recurrence of his lung cancer. Plan: He will continue anticoagulation with Lovenox 1mg/kg every 12 hours. He will also continue Plavix 75 mg daily. He will be scheduled for restaging CT scans of the chest, abdomen, and pelvis. He will have further evaluation as indicated. Signed By: Shorty Cahdwick M.D. <<Signature on File>>
== END 2019-07-22 23:59 | disposition home or self-care (01) ==
LOC: ONCMED 06:33
PROVIDERS: Family Provider Nurse Practitioner Family; PCP Nurse Practitioner Family; Visit Provider Internal Medicine Medical Oncology
DX: C79.51 Secondary malignant neoplasm of bone (principal); Z85.118 Personal history of other malignant neoplasm of bronchus and lung; E83.110 Hereditary hemochromatosis; D75.1 Secondary polycythemia; I10 Essential (primary) hypertension; E78.5 Hyperlipidemia, unspecified; I69.320 Aphasia following cerebral infarction; E11.43 Type 2 diabetes mellitus with diabetic autonomic (poly)neuropathy; Z95.1 Presence of aortocoronary bypass graft; I25.10 Atherosclerotic heart disease of native coronary artery without angina pectoris; M19.90 Unspecified osteoarthritis, unspecified site; J43.9 Emphysema, unspecified; G47.33 Obstructive sleep apnea (adult) (pediatric); Z79.4 Long term (current) use of insulin; Z79.02 Long term (current) use of antithrombotics/antiplatelets; Z87.891 Personal history of nicotine dependence; Z86.718 Personal history of other venous thrombosis and embolism; Z92.3 Personal history of irradiation; Z90.2 Acquired absence of lung [part of]
CPT/HCPCS: 80053; 85025; 99214

== ENCOUNTER 2019-07-24 13:47 | Emergency (ER) | payer MEDICARE, SELFPAY ==
[2019-07-24 12:44] VITALS: BP 145/65; PULSE 86; RESP 18; TEMP 36.7; O2SAT 97; BMI 27.8
--- NOTE | 2019-07-24 12:51 | ED_ITS ---
Entered by Alessia Rg, acting as scribe for Bhavani Tarango MD, [facility] [place] HPI - General Adult General: Chief complaint: General Medical Stated complaint: needs blood Time Seen by Provider: 07/24/19 12:49 History of Present Illness: HPI narrative: 79 yo male presents to ED stating he was called yesterday by Dr Dickson and was instructed to present to the ED for a recheck of his labs. The patient was told that 1 of his 4 blood cultures was positive and he needed to have it rechecked. complaint: lab recheck Onset (ago): day(s) (1) [facility] ED PFSH: Statuses (acute, chronic, etc) shown below reflect problem list status as previously entered and may not be historically accurate Social History Smoking and tobacco status: former smoker Course Vital Signs: Vital signs: Vital Signs Temperature 98.1 F 07/24/19 12:44 Pulse Rate 86 07/24/19 12:44 Respiratory Rate 17 07/24/19 12:57 Blood Pressure 145/65 07/24/19 12:44 Pulse Oximetry 97 07/24/19 12:44 Coding Level of Care Code ED Supervisor Dock for Moises Sam
[2019-07-24 12:57] VITALS: RESP 17
--- NOTE | 2019-07-24 13:25 | PC.NURSE ---
Pt was supposed to be registered as outpatient. Pt's IV removed, catheter intact. Cotton ball and coban applied to IV site after removal. Pt tolerated well.
== END 2019-07-24 14:00 | disposition home or self-care (01) ==
LOC: GILAB 14:07 → LAB 14:22 → ER 14:41
PROVIDERS: Emergency Provider Family Medicine; Family Provider Nurse Practitioner Family; PCP Nurse Practitioner Family
DX: Z53.21 Procedure and treatment not carried out due to patient leaving prior to being seen by health care provider (principal)
CPT/HCPCS: 87040; 99282

== ENCOUNTER 2019-08-03 12:47 | Emergency (ER) | payer MEDICARE, SELFPAY ==
[2019-08-03 12:57] VITALS: BP 153/71; PULSE 70; RESP 18; TEMP 36.7; O2SAT 93; BMI 31.6
--- NOTE | 2019-08-03 13:17 | ED_ITS ---
Entered by Clover Del Toro, acting as scribe for Lara Ribeiro MD Aug 03, 2019 12:47 HPI - Altered Mental Status General: Chief Complaint: Altered Mental Status Stated Complaint: DIZZINESS Time Seen by Provider: 08/03/19 13:17 Source: family Mode of arrival: ambulatory Limitations: no limitations History of Present Illness: HPI narrative: 79 yo Male presents to ED with complaint of dizziness, headache, and confusion. Pt's states that the patient has been dizzy, had a headache, and is having trouble following conversations and finding his words. Pt states that he feels off balance a little bit. Pt's states that the patient had a stroke previously and prior to that the patient had dizziness. Pt's states that after his previous stroke the patient didn't talk, wouldn't eat, and wouldn't go to the bathroom. Pt's states that the patient's stroke was at the beginning of the year and the patient [facility]. Pt's states that the patient hasn't been back to normal since the stroke but his symptoms have worsened today. Pt's states that the patient has bone cancer as well. complaint: altered mental status and confusion Onset (ago): day(s) Timing confirmed by: spouse Consistency of symptoms: Getting Worse Associated symptoms: Deny depression Review of Systems Const: Denies: fever, chills, change in appetite, night sweats or diaphoresis Eyes: Denies: change in vision ENMT: Denies: throat pain or ear pain Card: Denies: chest pain, swelling of feet/ankles, shortness of breath on exertion or shortness of breath when lying down Resp: Denies: shortness of breath or productive cough GI: Denies: abdominal pain, nausea, vomiting, diarrhea or constipation : Denies: flank pain Musc: Denies: back pain Skin/Breast: Denies: rash Neuro: Reports: headache, lack of coordination, dizziness and confusion; Denies: numbness in extremities or weakness in extremities Psych: Denies: depression Endo: Denies: excessive thirst Eren/Lymph: Denies: easy bruising PFSH ED PFSH: Statuses (acute, chronic, etc) shown below reflect problem list status as previously entered and may not be historically accurate Social History Smoking and tobacco status: never smoked Physical Exam Const: COMMON NORMALS: no apparent distress, oriented x3 and alert GENERAL APPEARANCE: cooperative and well developed; not in distress and not diaphoretic ORIENTATION/CONSCIOUSNESS: Yes awake, Yes oriented to person, Yes oriented to place and Yes oriented to time HENMT: COMMON NORMALS: normocephalic, head/scalp atraumatic, external ears normal, external nose normal and moist oral mucous membranes HEAD & SCALP: normocephalic and atraumatic FACE & SINUS: normal facial exam; no facial tenderness NOSE: external nose normal EXTERNAL EAR: Yes external ears normal MOUTH: oral and palatal mucosa normal, lip normal and tongue normal TEETH & GINGIVA: no abnormal tooth and associated gingiva THROAT: posterior oropharynx normal and uvula midline Eye: COMMON NORMALS: PERRL and EOMs intact bilaterally PUPIL: Yes PERRL Neck/C-Spine: COMMON NORMALS: full ROM, supple and no JVD GENERAL: Yes normal visual inspection and Yes trachea midline CERVICAL SPINE: No cervical spine tenderness Lymph: LYMPHATIC: no lymphadenopathy noted Chest: COMMONS NORMALS: inspection of chest normal Resp: COMMON NORMALS: normal respiratory effort, no use of accessory muscles and clear to auscultation bilaterally EFFORT & INSPECTION: Yes able to speak in complete sentences and Yes symmetric chest movement AUSCULTATION: clear to auscultation bilaterally Cardio: COMMON NORMALS: no JVD, regular rate, regular rhythm, no gallops, no murmurs and peripheral pulses 2+ throughout RATE: regular rate RHYTHM: regular rhythm PERIPHERAL PULSES: pulses 2+ throughout GI: COMMON NORMALS: normal to inspection, nondistended, normoactive bowel sounds, soft to palpation and non-tender PALPATION: Yes soft Back/Pelvis: COMMON NORMALS: thoracic and lumbar spine normal to inspection and thoraco-lumbar ROM normal Extremity: COMMON NORMALS: normal to inspection, full ROM and normal capillary refill Neuro: COMMON NORMALS: oriented x3, CN's II-XII intact bilaterally, moves all extremities, no focal motor deficits and no sensory deficits noted SENSORIUM/ORIENTATION: Yes alert, Yes oriented to person, Yes oriented to place and Yes oriented to time Psych: COMMON NORMALS: mental status grossly normal, thought process normal, cooperative, affect normal, speech normal and activity/motor behavior normal SPEECH: Yes normal speech THOUGHT PROCESS: normal thought process Skin: COMMON NORMALS: no rashes or lesions noted and skin turgor normal GENERAL SKIN EXAM: no rashes or lesions noted and turgor normal Course ED course: Patient with history of recent stroke - his became tearful in recounting how she hadn't recognized his stroke symptoms and didn't bring him in for a few days. She reports that he has had more dizziness today - but all his other symptoms seem to be unchanged. He has not taken his meclizine today. Work up today is unremarkable and his neuro exam is actually very good. Vital Signs: Vital signs: Vital Signs Temperature 98.1 F 08/03/19 12:57 Pulse Rate 63 08/03/19 16:56 Respiratory Rate 19 H 08/03/19 16:56 Blood Pressure 153/87 08/03/19 16:56 Pulse Oximetry 95 08/03/19 16:56 MDM - Altered Mental Status MDM Narrative: Medical decision making narrative: No new neuro symptoms - no new findings on CT. Patient is ambulating well and seems to be at baseline for post stroke. Recommended meclizine and close outpatient follow up. Lab Data: Labs: Lab Results 08/03/19 08/03/19 08/03/19 Range/Units 13:30 13:30 13:30 WBC 7.2 (4.0-10.0) 10^3/ uL RBC 5.38 H (4.1-5.3) 10^6/u L Hgb 16.3 (11.7-16.6) g/dL Hct 48.0 (42.0-52.0) % MCV 89.2 (80-94) fL MCH 30.3 (28.0-34.0) pg MCHC 34.0 (30.0-36.0) g/dL RDW 13.4 (12.1-15.1) % Plt Count 96 L (130-400) 10^3/c mm MPV 10.2 (7.4-10.4) fL Neut % (Auto) 72.9 % Lymph % (Auto) 14.0 % [place] % (Auto) 6.6 % Eos % (Auto) 5.4 % Baso % (Auto) 0.8 % Neut # (Auto) 5.3 (1.8-7.7) 10^3/u L Lymph # (Auto) 1.0 (0.8-4.8) 10^3/u L [place] # (Auto) 0.5 (0.2-0.9) 10^3/u L Eos # (Auto) 0.4 (0.0-0.8) 10^3/u L Baso # (Auto) 0.1 (0.0-0.1) 10^3/u L Nucleated RBC % (a uto) 0 % Nucleated RBCs # 0.0 /100WBC PT 15.50 H (10.5-13.3) SECO NDS INR 1.19 (0.8-1.2) APTT 31.1 (23.9-36.7) SECO NDS Sodium 142 (136-145) mmol/L Potassium 4.4 (3.5-5.1) mmol/L Chloride 102 (98-107) mmol/L Carbon Dioxide 27 (22-29) mmol/L Anion Gap 17.4 (5-19) BUN 22 (8-23) mg/dL Creatinine 1.3 H (0.7-1.2) mg/dL Glucose 223 H (65-115) mg/dL POC Glucose (70-110) mg/dL Calcium 10.5 (8.5-10.5) mg/dL Total Bilirubin 0.9 (0.15-1.2) mg/dL AST 18 (0-40) U/L ALT 42 H (0-41) U/L Alkaline Phosphata se 79 (40-130) IU/L Total Protein 7.2 (6.6-8.7) g/dL Albumin 4.8 (3.5-5.2) g/dL Globulin 2.4 (1.3-4.6) g/dL Urine Color (Yellow) Urine Appearance (CLEAR) Urine pH (5-7) Ur Specific Gravit y (1.005-1.030) Urine Protein (Negative) Urine Glucose (UA) (Normal) Urine Ketones (Negative) Urine Occult Blood (Negative) Urine Nitrate (Negative) Urine Bilirubin (NEGATIVE) Urine Urobilinogen (Negative) mg/dL Ur Leukocyte Ritika ase (Negative) 08/03/19 08/03/19 Range/Units 14:19 15:50 WBC (4.0-10.0) 10^3/ uL RBC (4.1-5.3) 10^6/u L Hgb (11.7-16.6) g/dL Hct (42.0-52.0) % MCV (80-94) fL MCH (28.0-34.0) pg MCHC (30.0-36.0) g/dL RDW (12.1-15.1) % Plt Count (130-400) 10^3/c mm MPV (7.4-10.4) fL Neut % (Auto) % Lymph % (Auto) % [place]vier % (Auto) % Eos % (Auto) % Baso % (Auto) % Neut # (Auto) (1.8-7.7) 10^3/u L Lymph # (Auto) (0.8-4.8) 10^3/u L [place] # (Auto) (0.2-0.9) 10^3/u L Eos # (Auto) (0.0-0.8) 10^3/u L Baso # (Auto) (0.0-0.1) 10^3/u L Nucleated RBC % (a uto) % Nucleated RBCs # /100WBC PT (10.5-13.3) SECO NDS INR (0.8-1.2) APTT (23.9-36.7) SECO NDS Sodium (136-145) mmol/L Potassium (3.5-5.1) mmol/L Chloride (98-107) mmol/L Carbon Dioxide (22-29) mmol/L Anion Gap (5-19) BUN (8-23) mg/dL Creatinine (0.7-1.2) mg/dL Glucose (65-115) mg/dL POC Glucose 157 (70-110) mg/dL Calcium (8.5-10.5) mg/dL Total Bilirubin (0.15-1.2) mg/dL AST (0-40) U/L ALT (0-41) U/L Alkaline Phosphata se (40-130) IU/L Total Protein (6.6-8.7) g/dL Albumin (3.5-5.2) g/dL Globulin (1.3-4.6) g/dL Urine Color Yellow (Yellow) Urine Appearance Clear (CLEAR) Urine pH 7 (5-7) Ur Specific Gravit y 1.010 (1.005-1.030) Urine Protein Neg (Negative) Urine Glucose (UA) 4+ H (Normal) Urine Ketones Negative (Negative) Urine Occult Blood Neg (Negative) Urine Nitrate Negative (Negative) Urine Bilirubin Neg (NEGATIVE) Urine Urobilinogen Norm (Negative) mg/dL Ur Leukocyte Ritika ase Negative (Negative) Imaging Data^: CT Head: Radiologist's impression: [address] [address] [address] Scan Report Signed Patient: Lynnette Sevilla RUnit #: [id number] : [id number]#:[id number] Age/Sex: 79 / MADM Date: 08/03/19 Loc: ERRoom/Bed: Attending Dr: Ordering Provider/Ordering MD: Lara Ribeiro MD Date of Service: 08/03/19 Procedure(s): CT head wo con* [id number] Accession Number(s): [id number] Report Number: [id number] PROCEDURE INFORMATION: Exam: CT Head Without Contrast Exam date and time: 08/03/2019 1:45 PM Age: 79 years old Clinical indication: Dizziness; Patient HX: PT woke up this morning extremely dizzy; Additional info: Symptoms of acute stroke TECHNIQUE: Imaging protocol: Computed tomography of the head without contrast. Total DLP: 804.77 mGy-cm Radiation optimization: All CT scans at this facility use at least one of these dose optimization techniques: automated exposure control; mA and/or kV adjustment per patient size (includes targeted exams where dose is matched to clinical indication); or iterative reconstruction. COMPARISON: CT head wo con* [id number] 07/04/2019 12:41 AM FINDINGS: Brain: There is no acute intracranial hemorrhage, cerebral edema, or midline shift. Chronic microvascular ischemic changes are seen in the periventricular white matter.A dilated perivascular space is noted within the right basal ganglia. Age-related cerebral and cerebellar volume loss is present. Ventricles: Mild ex vacuo dilation of the lateral and third ventricles is noted. Bones/joints: No acute fracture. Sinuses: There is no acute sinusitis. Mastoid air cells: The mastoid air cells are clear. Orbits: The included orbital structures are unremarkable. Soft tissues: Unremarkable. Vasculature: Atherosclerotic calcifications are seen involving the cavernous carotid arteries. CT/CT head wo con* [id number] IMPRESSION: 1. No acute intracranial abnormality. 2. Atrophy and chronic deep white matter ischemic change. Radiation Dose CTDIVOL = (mGy): DLP = 804.77 (mGy-cm) Dictated By:Adolph Sellers MD Signed By:Adolph Sellers MDSigned Date/Time:08/03/191406 DD/ 04 EKG Data^: EKG 1: EKG interpretation date: 08/03/19 EKG interpretation time: 14:10 Interpretation: rate 62 - sinus arrhythmia Discharge Plan Discharge Patient Disposition: Home, Self-Care Clinical Impression: Vertigo as late effect of cerebrovascular accident (CVA) Condition: Stable Prescriptions: No Action meclizine 25 mg tablet 25 mg PO QID PRN (Reason: dizziness) Qty: 20 RF: 0 carvedilol 25 mg Tablet 25 mg PO BID RF: 0 cetirizine [Zyrtec] 10 mg Tablet 10 mg PO DAILY RF: 0 clopidogrel [Plavix] 75 mg Tablet 75 mg PO DAILY RF: 0 amlodipine [Norvasc] 5 mg Tablet 2.5 mg PO DAILY RF: 0 acetaminophen [Tylenol Extra Strength] 500 mg Tablet 500 mg PO BID PRN (Reason: Pain) RF: 0 famotidine 20 mg Tablet 20 mg PO BID RF: 0 tamsulosin [Flomax] 0.4 mg Capsule 0.4 mg PO DAILY RF: 0 gabapentin 300 mg Capsule 300 mg PO QPM RF: 0 allopurinol 300 mg Tablet 300 mg PO DAILY RF: 0 metformin 500 mg Tablet Extended Release 24 Hr 1,000 mg PO BID RF: 0 vitamin [id number] acid 0.5-1 mg Tablet 1 tab PO DAILY RF: 0 cholecalciferol (vitamin D3) [Vitamin D3] 2,000 unit Tablet 2,000 unit PO DAILY RF: 0 omega [id number] oil [Fish Oil] 1,000 mg (120 mg-180 mg) Capsule 1 cap PO DAILY RF: 0 Jardiance 25 mg Tablet 12.5 mg PO DAILY RF: 0 docusate sodium 100 mg Capsule 100 mg PO DAILY Qty: 0 RF: 0 enoxaparin 80 mg/0.8 mL Syringe 80 mg SUBCUT Q12H 30 Days Qty: 60 RF: 0 lovastatin 40 mg Tablet 40 mg PO DAILY RF: 0 Senexon-S 8.6-50 mg Tablet 1 tab PO BID RF: 0 Aspir-81 81 mg Tablet,Delayed Release (Dr/Ec) 81 mg PO DAILY RF: 0 Flonase Allergy Relief 50 mcg/actuation [place],Suspension 1 spray INTRANASAL DAILY RF: 0 glipizide 5 mg Tablet 5 mg PO DAILY RF: 0 hydrochlorothiazide 12.5 mg Tablet 12.5 mg PO DAILY RF: 0 Mucinex 600 mg Tablet Extended Release 12hr 600 mg PO PRN RF: 0 Spiriva Respimat 1.25 mcg/actuation Mist 2 puff INHALATION DAILY RF: 0 Discharge Orders: Discharge Order (Routine); Ordered 08/03/19 Ordered By: Lara Ribeiro Referrals: Aislinn Beebe, HEALTH COACH [Primary Care Provider] - 1-3 days Discharge Diet: Usual diet Discharge Activity: Resume usual activity Patient Instructions: Vertigo (ED) Activity Restrictions/Additional Instructions: Continue taking your meclizine for dizziness. Try taking one every morning for a few days to see if that helps. Return to the ED if worsening, or if other new or concerning symptoms. Discharge Date/Time: 08/03/19 16:57 Coding Level of Care Code ED Poultry Cleaner for Chg Fwd Exam Problem Focused The documentation recorded by the Katey seals Carmen, accurately reflects the service I personally performed and the decisions made by Quintni yanes Kathryn L, MD Aug 03, 2019 12:47
[2019-08-03 13:37] VITALS: O2SAT 96
--- NOTE | 2019-08-03 13:43 | CTR_ITS ---
PROCEDURE INFORMATION: Exam: CT Head Without Contrast Exam date and time: 08/03/2019 1:45 PM Age: 79 years old Clinical indication: Dizziness; Patient HX: PT woke up this morning extremely dizzy; Additional info: Symptoms of acute stroke TECHNIQUE: Imaging protocol: Computed tomography of the head without contrast. Total DLP: 804.77 mGy-cm Radiation optimization: All CT scans at this facility use at least one of these dose optimization techniques: automated exposure control; mA and/or kV adjustment per patient size (includes targeted exams where dose is matched to clinical indication); or iterative reconstruction. COMPARISON: CT head wo con* [id number] 07/04/2019 12:41 AM FINDINGS: Brain: There is no acute intracranial hemorrhage, cerebral edema, or midline shift. Chronic microvascular ischemic changes are seen in the periventricular white matter.A dilated perivascular space is noted within the right basal ganglia. Age-related cerebral and cerebellar volume loss is present. Ventricles: Mild ex vacuo dilation of the lateral and third ventricles is noted. Bones/joints: No acute fracture. Sinuses: There is no acute sinusitis. Mastoid air cells: The mastoid air cells are clear. Orbits: The included orbital structures are unremarkable. Soft tissues: Unremarkable. Vasculature: Atherosclerotic calcifications are seen involving the cavernous carotid arteries. CT/CT head wo con* [id number] IMPRESSION: 1. No acute intracranial abnormality. 2. Atrophy and chronic deep white matter ischemic change. Radiation Dose CTDIVOL = (mGy): DLP = 804.77 (mGy-cm)
--- NOTE | 2019-08-03 13:43 | ECG_ITS ---
Measurements Intervals [place] Rate: 62 P: 51 NV: 165 QRS: 32 QRSD: 92 T: 41 QT: 362 QTc: 370 SINUS RHYTHM WITH SINUS ARRHYTHMIA POSSIBLE ANTERIOR MYOCARDIAL INFARCTION , OF INDETERMINATE AGE [30 ms Q WAVE IN V3/V4, OR R < 0.2 mV IN V4] INTERPRETATION BASED ON A DEFAULT AGE OF 40 YEARS Compared to ECG 07/04/2019 05:28:46 Myocardial infarct finding now present T-wave abnormality no longer present Electronically Signed On 08-03-2019 20:55:27 MANAGER LOCAL by Gabriel Merchant M.D. [email or web address]
[2019-08-03 13:51] LABS: Basophils # 0.1 10^3/uL (0.0-0.1); Basophils % 0.8 %; Eosinophils # 0.4 10^3/uL (0.0-0.8); Eosinophils % 5.4 %; Hemoglobin 16.3 g/dL (11.7-16.6); Mean Corpuscular Hemoglobin 30.3 pg (28.0-34.0); Mean Corpuscular Volume 89.2 fL (80-94); Mean Platelet Volume 10.2 fL (7.4-10.4); Monocytes # 0.5 10^3/uL (0.2-0.9); Monocytes % 6.6 %; Neutrophils # 5.3 10^3/uL (1.8-7.7); Neutrophils % 72.9 %; Nucleated Red Blood Cells % 0 %; Platelet Count 96 10^3/cmm (130-400); Red Blood Count 5.38 10^6/uL (4.1-5.3); Red Cell Distribution Width 13.4 % (12.1-15.1); White Blood Count 7.2 10^3/uL (4.0-10.0)
[2019-08-03 13:58] LABS: INR 1.19 (0.8-1.2); Partial Thromboplastin Time 31.1 SECONDS (23.9-36.7)
[2019-08-03 14:04] LABS: Alanine Aminotransferase 42 U/L (0-41); Albumin Level 4.8 g/dL (3.5-5.2); Alkaline Phosphatase 79 IU/L (40-130); Anion Gap 17.4 (5-19); Aspartate Amino Transferase 18 U/L (0-40); Blood Urea Nitrogen 22 mg/dL (8-23); Calcium 10.5 mg/dL (8.5-10.5); Carbon Dioxide 27 mmol/L (22-29); Chloride 102 mmol/L (98-107); Globulin 2.4 g/dL (1.3-4.6); Glucose 223 mg/dL (65-115); Potassium 4.4 mmol/L (3.5-5.1); Sodium 142 mmol/L (136-145); Total Bilirubin 0.9 mg/dL (0.15-1.2); Total Protein 7.2 g/dL (6.6-8.7)
[2019-08-03 14:23] LABS: Glucose Point of Care 157 mg/dL (70-110)
[2019-08-03 16:04] LABS: Add Urine Microscopic? NO
[2019-08-03 16:10] LABS: Bilirubin Urine Neg (NEGATIVE); Blood Urine Neg (Negative); Glucose Urine UA 4+ (Normal); Ketones Urine Negative (Negative); Leukocyte Esterase Urine Negative (Negative); Nitrate Urine Negative (Negative); Protein Urine Neg (Negative); Urine Appearance Clear (CLEAR); Urine Color Yellow (Yellow); Urobilinogen Urine Norm (Negative); pH Urine 7 (5-7)
[2019-08-03 16:56] VITALS: BP 153/87; PULSE 63; RESP 19; O2SAT 95
== END 2019-08-03 16:57 | disposition home or self-care (01) ==
PROVIDERS: Emergency Provider Emergency Medicine; Family Provider Nurse Practitioner Family; PCP Nurse Practitioner Family
DX: I69.398 Other sequelae of cerebral infarction (principal); R42 Dizziness and giddiness
CPT/HCPCS: 36415; 36416; 70450; 80053; 81003; 82962; 85025; 85610; 85730; 93005; 99283; 99284

== ENCOUNTER 2019-08-08 05:41 | Outpatient (RCR) | payer MEDICARE, SELFPAY ==
--- NOTE | 2019-07-23 17:55 | PM.MISC ---
Miscellaneous Note Purpose of Documentation: Positive blood culture Note: My electronic inbox in the EMR today, I noticed that a blood culture that was sent from patient's recent admission 1 out of 4 bottles was reported positive for Peptostreptococcus. This is a blood culture that was sent on 07/06/2019. Per report that I am looking at now 1 bottle was reported positive after 5 days of incubation. A prior preliminary negative result was changed on 07/12. While in this situation 1 out of 4 positive bottles is most likely to represent a contaminant, given that the patient was worked up for endocarditis it would be prudent to repeat these blood cultures. I have contacted the patient and his . I have made arrangements with the lab for the patient to come in on Thursday to the emergency room and get this testing directly from the lab. He will come in tomorrow at 12:30 PM to get this test at the lab. He is instructed to report to ER to register and then moved to the lab.
--- NOTE | 2019-07-25 13:45 | CT_ITS ---
WS: [id number] CT CHEST, ABDOMEN AND PELVIS WITH CONTRAST HISTORY: LUNG CA, ELEVATED LIVER ENZYMES TECHNIQUE: Contiguous 5 mm axial imaging performed through the chest, abdomen and pelvis with IV cont rast, oral contrast has been provided. Coronal and sagittal reformats chest. Coronal and sagittal ref ormats through the abdomen and pelvis. All CT scans at [facility] use at least one of the se dose optimization techniques: automated exposure control; mA and/or kV adjustment per patient size (includes targeted exams where dose is matched to clinical indication); or iterative reconstruction. CONTRAST: Visipaque 320; 95 mL IV. DLP: 2575.4 mGycm COMPARISON: 06/01/2019 and 12/07/[address]: Status post RIGHT upper lobectomy. Noncalcified ovoid 5 mm nodule in the LEFT upper lobe is stable. Bilateral bullous disease and bleb formations. 3 mm noncalcified nodule in the LEFT lower lo be. No mediastinal or hilar adenopathy. Heart size is normal. Prior median sternotomy and CABG. Mild thickening of the distal esophagus. Abdomen CT: There are a few scattered hypodensities throughout the liver which are too small to mirela cterize. Compared to the prior studies these have been present and are stable. Gallbladder is contrac jenny with stones. No bile duct dilatation. Pancreas and spleen are negative. No adrenal mass. Extensiv e atherosclerosis within the abdominal aorta with no aneurysm. Heavy calcified plaque. Noncalcified i ntimal thickening is also noted at the level of the renal arteries. Bilateral cortical hypodensities within each kidney and perinephric stranding with no obstruction. New 7 mm hypodensity lower pole RIG HT kidney. No free fluid or adenopathy. Pelvic CT: Mild fecal retention. Numerous diverticula within the descending and sigmoid colon. No obs truction. Nondistended urinary bladder. No free fluid in the pelvis. No adenopathy. No osteoblastic or osteolytic bone disease. Cortical thickening involving the posterior RIGHT upper r ibs is stable. CT/CT chest abd pel w con* IMPRESSION: 1. Status post RIGHT upper lobectomy. No recurrent pulmonary mass or adenopath y. 2. Numerous scattered hypodensities in the liver. These are too small to mirela cterize but stable over multiple prior studies. 3. Contracted gallbladder with increased density in the lumen. Suspect stones and/or chronic cholecystitis. 4. No ascites or adenopathy. 5. Moderate atherosclerosis aorta. 6. Sigmoid diverticulosis without acute diverticulitis.
[2019-07-25] MEDS: iohexol 300 mg/mL 50 mL Btl PO (15:13)
[2019-07-25] MEDS: iodixanol 320 mg/mL 100mL Btl IV (15:31)
[2019-08-08 13:57] LABS: Basophils # 0.1 10^3/uL (0.0-0.1); Eosinophils # 0.4 10^3/uL (0.0-0.8); Eosinophils % 6.2 %; Hematocrit 46.6 % (42.0-52.0); Hemoglobin 15.7 g/dL (11.7-16.6); Lymphocytes # 1.2 10^3/uL (0.8-4.8); Lymphocytes % 19.3 %; Mean Corpuscular HGB Conc 33.7 g/dL (30.0-36.0); Mean Corpuscular Hemoglobin 30.4 pg (28.0-34.0); Mean Corpuscular Volume 90.1 fL (80-94); Mean Platelet Volume 10.8 fL (7.4-10.4); Monocytes # 0.5 10^3/uL (0.2-0.9); Monocytes % 8.4 %; Neutrophils # 3.9 10^3/uL (1.8-7.7); Neutrophils % 64.8 %; Nucleated Red Blood Cells % 0 %; Platelet Count 118 10^3/cmm (130-400); Red Blood Count 5.17 10^6/uL (4.1-5.3); Red Cell Distribution Width 13.4 % (12.1-15.1)
[2019-08-08 14:06] LABS: Alanine Aminotransferase 25 U/L (0-41); Albumin Level 4.2 g/dL (3.5-5.2); Alkaline Phosphatase 62 IU/L (40-130); Anion Gap 15.6 (5-19); Aspartate Amino Transferase 19 U/L (0-40); Blood Urea Nitrogen 19 mg/dL (8-23); Calcium 10.3 mg/dL (8.5-10.5); Carbon Dioxide 28 mmol/L (22-29); Chloride 101 mmol/L (98-107); Globulin 3.1 g/dL (1.3-4.6); Glucose 170 mg/dL (65-115); Potassium 4.6 mmol/L (3.5-5.1); Sodium 140 mmol/L (136-145); Total Bilirubin 1.3 mg/dL (0.15-1.2); Total Protein 7.3 g/dL (6.6-8.7)
--- NOTE | 2019-08-10 08:20 | ONC FU_ITS ---
Dr. Chadwick Patient Follow-Up Note Patient: Lynnette Sevilla Unit #: [id number]: [id number] Dicatated By: Shorty Chadwick M.D.Date of Visit:Aug 08, 2019 Onc Med Follow-up/Prog Note Chief Complaint: Hemochromatosis/lung cancer. 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 His disease was stage IB (T2a, N0, M0) at initial diagnosis, but with subsequent progression to stage TIGIST (M1b). He also has hereditary hemochromatosis. In February [address] Tyler with persistent cough. His evaluation included chest CT on 03/04/2017. It showed a spiculated density in the medial aspect of the anterior segment of the right upper lobe. It measured 1.8 x 2.4 x 1.8 cm and it was new compared to a previous study from November 2013. There was no associated mediastinal or hilar adenopathy, and there was no evidence of liver or adrenal metastases. He underwent bronchoscopy on 04/06/2017. There were no endobronchial lesions identified. The lesion was found to be avid by PET/CT. There was no evidence of metastatic involvement. He underwent right upper lobectomy with mediastinal lymph node biopsy on 04/29/2017. Pathology showed low-grade (grade 1-2) adenocarcinoma measuring 3.2 x 2.4 cm. There was penetration into visceral pleura and there was evidence of lymphovascular space invasion. The margins of resection were free, and there was no involvement in 1 mediastinal lymph node, in 1 lymph node at the right mainstem bronchus, and in 2 hilar lymph nodes. He has continued on observation/expectant management following the surgery, as there appeared to be no indication for adjuvant chemotherapy. I had initially seen him in October 2012 in regard to elevated hemoglobin/hematocrit levels and elevated serum iron. His evaluation at that time showed his hemoglobin elevated at 18.1 g with hematocrit 52%. White count and platelet count were normal. The serum iron was in the upper normal range at 145 mcg/dL with transferrin saturation 30.8%. The serum ferritin, though, was elevated at 606 ng/mL. He had additional evaluation including an erythropoietin level which was in the normal range at 12 mIU/mL. A MICHAEL 2 gene mutation study was negative. The HFE gene analysis showed double heterozygosity for the C282Y and the H63D mutations, consistent with hereditary hemochromatosis. He has been managed on a phlebotomy program. His other medical illnesses include hypertension, hyperlipidemia, type 2 diabetes, coronary artery disease, peripheral vascular disease, and degenerative arthritis. He underwent coronary artery bypass surgery in 1996 and he underwent an arterial bypass procedure to the right leg in 1999. In 2013 he was found to have significant hypoxemia. On evaluation he was found to have COPD and obstructive sleep apnea. 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 Also noted was calcific plaque at the origins of the common iliac arteries at 54% on the left and 60% on the right. He has a history of smoking 1-1 1/2 packs of cigarettes daily, but he quit smoking in 1996. INTERIM HISTORY: Surveillance chest CT on 12/07/2018 showed stable postoperative changes from prior right upper lobectomy. There was long-term stability of left upper lower lobe nodules. There was chronic emphysema. There was no evidence for recurrent or metastatic neoplastic process. He continued observation/expectant management for the lung cancer. He had then presented to Dr. Tyler's office with swelling and redness in the left arm, in the area of the antecubital fossa. Venous Doppler of the left arm on 02/11/2019 showed extensive occlusive thrombus in the left basilic vein. All other veins of the left upper extremity appeared free of thrombus. He was started on anticoagulation with apixaban. He was seen here for follow-up on 02/25/2019. He then had a restaging PET/CT on 03/10/2019. It showed interval development of abnormal activity in a lytic lesion in the left femoral neck, suspicious for metastatic disease. There was interval resolution of the small right upper lobe lung mass. There were no other areas of abnormal uptake on that study. With those findings, he was referred to Dr. Chin. On 03/17/2019 he underwent prophylactic open reduction with interval fixation of the left hip. Pathology on the bone fragments did confirm metastatic carcinoma consistent with the previous diagnosis of pulmonary infiltrating adenocarcinoma. Following recovery from the surgery he was seen by Dr. Boggs for palliative radiation. He completed treatment on 04/18/2019 to a total dose of 3900 cGy. He tolerated the treatment well. In the meantime, I had also requested a next generation sequencing study. It was performed on the original lung tumor, as the specimen from the left femur was insufficient for analysis. That study showed low PD-L1 expression at 7%. The mutation burden, though, was high. The tumor was negative for EGFR, BRAF, and KRAS mutations, and it also tested negative for the ALK and ROS1 rearrangements. The NTRK fusion also was not detected. I had seen him for a follow-up visit on 05/02/2019. He had restaging CT scans on 06/01/2019 showed no evidence for recurrent disease in the chest, abdomen, or pelvis. In the setting of a treated, solitary metastasis, he was recommended to continue on observation/expectant management. On 06/28/2019 he was seen in the emergency room with complaints of dizziness. CT of the head with and without contrast showed no acute findings. He was diagnosed with vestibular neuronitis. On 07/04/2019 he was admitted to the hospital after returning to the emergency room with acute mental status changes. His repeat head CT showed a 10 mm focal area of low-attenuation in the left frontal lobe which appeared new from the recent study. Was felt to possibly represent a subacute infarct. Further evaluation with brain MRI showed multifocal patchy areas of acute ischemia involving the YUNG territories bilaterally. The largest area of ischemia measured approximately 1 cm. There was no evidence of mass-effect or midline shift. The clinical presentation appeared most consistent with cancer related hypercoagulability. As it occurred while on a therapeutic dose of apixaban, his anticoagulation was transitioned to therapeutic Lovenox. His echocardiogram showed normal left ventricular cavity size and systolic function with estimated ejection fraction at 60%. There were no significant valvular abnormalities noted. There appeared to be no significant change compared to her previous study from July 2018. His bilateral carotid Doppler studies showed just moderate atheromatous plaque bilaterally. Head MRA showed no evidence of high-grade proximal stenosis or aneurysm. He was discharged to [facility] for rehab. At that point, he was still having significant expressive aphasia, but his confusion had improved significantly. He subsequently was able to return home. Restaging CT scans of the chest, abdomen, and pelvis on 07/25/2019 showed stable 5 mm noncalcified pulmonary nodule in the left upper lobe and a 3 mm noncalcified nodule in the left lower lobe. There was no mediastinal or hilar adenopathy. A few scattered hypodensities throughout the liver are too small to characterize but similar to prior studies. A new 7 mm hypodensity was noted in the lower pole of the right kidney. There was increased density within the lumen of a contracted gallbladder, suspicious for stones and/or chronic cholecystitis. There was no osteoblastic or osteolytic bone disease identified. On 08/03/2019 he was seen in the emergency room with dizziness. He has repeat noncontrast head CT showed atrophy and chronic deep white matter ischemic change with no acute intracranial abnormality identified. He was diagnosed with vertigo and treated with meclizine. He is seen for a follow-up visit. Since his last visit here he opted to stop the Lovenox injections, and he restarted anticoagulation with apixaban. He also has been taking Plavix. He continues to have difficulty with his speech. He is aware that he has confusion at times, and he is having difficulty with memory. His is concerned that he is not setting up his medications properly. He complains of dizziness, but does appear to be more of a balance issue. He has limited activity. His ECOG score is 2. He has good appetite. He has no fever or night sweats. He is short of breath with activity. He has not been having chest pain. He has no GI or complaints. He does complain that his left hip is killing him. He has not been taking pain medication other than Tylenol. Medications: Acetaminophen Extra Strength 1 (500 mg) Tablet Oral b.i.d., Allopurinol 1 Tablet (of 300 mg) Oral daily, amLODIPine Besylate 1 Tablet (of 2.5 mg) Oral daily, Atorvastatin Calcium 1 Tablet (of 20 mg) Oral daily, B-12 1 Tablet (of 1000 mcg) Tablet Oral daily, Bisacodyl 1 Tablet (of 5 mg) Tablet, enteric coated Oral daily PRN, Carvedilol 1 (25 mg) Tablet Oral b.i.d., Cetirizine HCl 1 Tablet (of 10 mg) Oral daily, Cholecalciferol 1 Capsule (of 2000 Units) Oral daily, [employer] Mucus Extended Release 1 Tablet (of 600 mg) Tablet SR 12 HR Oral daily PRN, Docusate Sodium 1 Tablet (of 100 mg) Oral daily, Dulcolax Milk of Magnesia 30 mL (of 400 mg/5mL) Suspension Oral daily PRN, Eliquis 1 Tablet (of 5 mg) Oral b.i.d., Famotidine 1 Tablet (of 20 mg) Tablet Oral b.i.d., Fish Oil 1 (1200 mg) Capsule Oral daily, Flonase Suspension Nasal, Gabapentin 1 Tablet (of 300 mg) Oral daily, Jardiance 0.5 Tablet (of 12.5 ) Oral daily, Lovastatin 1 Tablet (of 40 mg) Oral b.i.d., Meclizine HCl 1 Tablet (of 25 mg) Oral daily PRN, MetFORMIN HCl 2 Tablet (of 500 mg) Oral b.i.d., Plavix 75 mg - Take 1 Tablet Oral daily, Spiriva Respimat Aerosol, solution Inhalation, Tamsulosin HCl 1 (0.4 mg) Capsule Oral daily Allergies: PENICILLIN AND ALEVE Review of Systems: Constitutional - His energy is pretty good. He is not doing much activity at home. His appetite is good but his weight is down a couple of pounds. No fever, chills, hot flashes, or night sweats. ECOG score is 3, ENMT - He has sinus congestion/drainage. No mouth sores. No sore throat or difficulty swallowing, Hematologic/Lymphatic - He bruises easily, Respiratory - He gets short winded with activity. He is wearing a BIPAP. No cough. No pleuritic pain or hemoptysis, Cardiovascular - No angina pain. No palpitations, Gastrointestinal - No nausea or vomiting. No heartburn or acid reflux. No diarrhea or constipation. No blood in the stool or black stools, Genitourinary (M) - No dysuria or hematuria. No urinary frequency. No urgency or incontinence, Musculoskeletal - He is having significant pain in his left hip, Integumentary - No skin complications, Neurologic - He has occasional mild headaches. He has some trouble with his balance. No numbness/paresthesias. He still has some difficulty with speech and he still has some confusion, Psychiatric - No anxiety or depression. No insomnia. Vital Signs: Performed on Aug 08, 2019 13:38 Height - 65.00 in Weight - 170.2 lbs (LOW) BSA - 1.85 sq.m BMI - 28.32 Temperature - 97.1 F (LOW) Pulse - 61 /min Respiration - 17 /min BP - 144/61 mm(hg) (HIGH) O2 Sat - 94 % (LOW) Pain - 6 Physical Examination: Constitutional - He looks pretty good generally, Eyes - Sclerae nonicteric. Conjunctivae clear, ENMT - There are no lesions noted in the oral cavity, Hematologic/Lymphatic - No cervical, clavicular, or axillary adenopathy, Respiratory - Lungs sound clear with some decrease in air movement bilaterally, Cardiovascular - Heart rhythm is regular. There is no murmur, gallop, or rub noted, Abdomen - Soft and non-tender. Liver and spleen are not enlarged. There is no abdominal mass or ascites noted and there is no inguinal adenopathy, Extremities - No edema, Neurologic - He has some residual expressive aphasia. He has postural instability. There are no sensory or motor deficits noted. Lab/Imaging: Test performed on Aug 08, 2019 13:06 Sodium 140 mmol/L Potassium 4.6 mmol/L Chloride 101 mmol/L CO2 28 mmol/L Anion Gap 15.6 BUN 19 mg/dL Creatinine 1.0 mg/dL Cr Clearance (Est) 67.5500 mL/min Glucose 170 mg/dL Calcium 10.3 mg/dL Protein, Total 7.3 g/dL Albumin 4.2 g/dL Globulin 3.1 g/dL Bilirubin, Total 1.3 mg/dL ALT (SGPT) 25 U/L AST (SGOT) 19 U/L Alkaline Phosphatase 62 IU/L WBC 6.0 10 3/uL RBC 5.17 10 6/uL HGB 15.7 g/dL HCT 46.6 % MCV 90.1 fL MCH 30.4 pg MCHC 33.7 g/dL RDW 13.4 % Platelet Count 118 10 3/cmm MPV 10.8 fL Neutrophils 3.9 10 3/uL Lymphocytes 1.2 10 3/uL Monocytes 0.5 10 3/uL Eosinophils 0.4 10 3/uL Basophils 0.1 10 3/uL Neutrophil % 64.8 % Lymphocyte % 19.3 % Monocyte % 8.4 % Eosinophil % 6.2 % Basophils % 1.0 % Impression: 1. Patient with nonsmall cell cancer (low-grade adenocarcinoma) involving the upper lobe of the right lung, stage IB (T2a, N0, M0). 2. He underwent right upper lobectomy with mediastinal lymph node biopsy on 04/29/2017. 3. He has hereditary hemochromatosis. He was found to be doubly heterozygous for the C282Y and the H63D mutations. He has had a very good response to phlebotomy, with his subsequent ferritin levels maintained at less than 50 ng/mL compared to a pretreatment level of greater than 600. 4. He has underlying lung disease including COPD and obstructive sleep apnea, and he has associated chronic hypoxia. 5. 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 His other medical illnesses include: 6. Hypertension. 7. Hyperlipidemia. 8. Type II diabetes. 9. Coronary artery disease. 10. Peripheral arterial disease. 11. Degenerative arthritis. In January 2019 he had presented with a deep vein thrombosis of the left arm. It appeared to have been an unprovoked thrombosis. He started anticoagulation with apixaban. His restaging PET/CT on 03/10/2019 showed evidence of a single site of metastatic disease in the form of a lytic bone lesion in the left femoral neck. He underwent prophylactic ORIF of the left hip on 03/17/2019. Pathology confirmed metastatic adenocarcinoma. Following recovery from the surgery, he was seen by Dr. Boggs for palliative radiation. He completed treatment on 04/18/2019 to a total dose of 3900 cGy. During that time, he had additional pathologic evaluation with the next generation sequencing study on his primary lung tumor. It showed low PD-L1 expression at 7%. The mutation burden was high. There were no actionable mutations identified. His restaging CT scans on 06/01/2019 showed no evidence for recurrent disease in the chest, abdomen, or pelvis. In the setting of a treated, solitary metastasis, he was recommended to continue on observation/expectant management. He continued anticoagulation with apixaban. On 07/04/2019 he was admitted to the hospital with multiple cerebral infarcts. I had suspected that it was another manifestation of cancer related hypercoagulability. As it occurred while on a therapeutic dosage of apixaban, his anticoagulation had been transitioned to Lovenox. He was initially transferred to [facility] half-way for further rehabilitation, but he subsequently was able to return home. His restaging CT scans of the chest, abdomen, and pelvis on 07/25/2019 showed no obvious progression of the lung cancer. He has since then opted to stop the Lovenox injections and restart anticoagulation with apixaban. He also is taking Plavix. He was recently in the emergency room again with dizziness. There are no acute findings on a noncontrast head CT. At this point he continues to have some difficulty with speech, though there has been some improvement. He also still has some confusion and he reports having memory loss. He continues to have difficulty with balance. He has having significant pain in the left hip area. Despite the fact that his recent CT scans were unrevealing, I think the risk is very high that there has been further progression of the lung cancer. Plan: He will continue anticoagulation with apixaban 5 mg bid, and he will continue Plavix 75 mg daily, though I do feel that this is suboptimal anticoagulation for this situation. I will schedule him for restaging PET/CT, subject to verification of insurance coverage. He will be given a prescription for hydrocodone 5/APAP 325 for the left hip pain. He will be scheduled for a follow-up visit in 1 month. In the meantime, I will put in a request for home health to provide education/teaching in regard to his pain management and management of his other home medications. I also will request physical therapy evaluation and treatment for the dizziness/postural instability and speech therapy for management of the aphasia. Signed By: Shorty Chadwick M.D. <<Signature on File>>
== END 2019-08-20 23:59 | disposition home or self-care (01) ==
LOC: ONCMED 05:41
PROVIDERS: Family Provider Nurse Practitioner Family; PCP Nurse Practitioner Family; Visit Provider Internal Medicine Medical Oncology
DX: C34.11 Malignant neoplasm of upper lobe, right bronchus or lung (principal); C79.51 Secondary malignant neoplasm of bone; E83.110 Hereditary hemochromatosis; I10 Essential (primary) hypertension; E78.5 Hyperlipidemia, unspecified; E11.42 Type 2 diabetes mellitus with diabetic polyneuropathy; I25.10 Atherosclerotic heart disease of native coronary artery without angina pectoris; M19.90 Unspecified osteoarthritis, unspecified site; G47.33 Obstructive sleep apnea (adult) (pediatric); J43.9 Emphysema, unspecified; M25.552 Pain in left hip; I69.920 Aphasia following unspecified cerebrovascular disease; Z79.899 Other long term (current) drug therapy; Z79.02 Long term (current) use of antithrombotics/antiplatelets; Z79.84 Long term (current) use of oral hypoglycemic drugs; Z90.2 Acquired absence of lung [part of]; Z86.718 Personal history of other venous thrombosis and embolism; Z98.890 Other specified postprocedural states; Z95.1 Presence of aortocoronary bypass graft; Z87.891 Personal history of nicotine dependence
CPT/HCPCS: 71260; 74177; 80053; 85025; 99214; Q9967

== ENCOUNTER 2019-08-17 11:57 | Emergency (ER) | payer MEDICARE, SELFPAY ==
[2019-08-17 12:07] VITALS: BP 158/85; PULSE 74; RESP 16; TEMP 36.4; O2SAT 94; BMI 29.9
--- NOTE | 2019-08-17 12:16 | PC.NURSE ---
NIHSS 0 No deficit
--- NOTE | 2019-08-17 14:06 | ED_ITS ---
Entered by Rere Orellana, acting as scribe for Parul Mendez MD Aug 17, 2019 11:57 HPI - Altered Mental Status General: Chief Complaint: Altered Mental Status Stated Complaint: MEMORY PROBLEMS Time Seen by Provider: 08/17/19 14:05 Source: patient and family Mode of arrival: ambulatory Limitations: no limitations History of Present Illness: MD complaint: altered mental status and confusion Onset (ago): day(s) (2-3 days ago) Timing confirmed by: spouse Severity: moderate Consistency of symptoms: Getting Worse Context: other (confusion) Associated symptoms: Reports other (confusion since stroke) Review of Systems General: Reports: 10 or more systems reviewed and unremarkable except in HPI and below Const: Denies: fever or chills Eyes: Denies: change in vision ENMT: Denies: throat pain Card: Denies: chest pain Resp: Denies: shortness of breath GI: Denies: abdominal pain, nausea, vomiting or change in bowel habits Musc: Denies: muscle weakness Skin/Breast: Denies: rash Neuro: Reports: other (bilateral hip pain) Psych: Reports: change in appetite and other (increased agitation) Endo: Denies: excessive urination Eren/Lymph: Denies: easy bruising or easy bleeding All/Imm: Denies: hives PFSH ED PFSH: Social History Smoking and tobacco status: former smoker Physical Exam Const: COMMON NORMALS: no apparent distress, oriented x3, alert and well nourished HENMT: COMMON NORMALS: normocephalic and external nose normal HEAD & SCALP: normocephalic NOSE: external nose normal MOUTH: no trismus Eye: COMMON NORMALS: EOMs intact bilaterally and conjunctivae normal CONJUNCTIVA: Yes conjunctivae normal Neck/C-Spine: COMMON NORMALS: full ROM, no lymphadenopathy and supple CERVICAL SPINE: Yes cervical ROM normal Lymph: LYMPHATIC: no lymphadenopathy noted Resp: COMMON NORMALS: normal respiratory effort, no retractions, no use of accessory muscles and clear to auscultation bilaterally EFFORT & INSPECTION: Yes able to speak in complete sentences AUSCULTATION: clear to auscultation bilaterally Cardio: COMMON NORMALS: regular rate and regular rhythm RATE: regular rate RHYTHM: regular rhythm GI: COMMON NORMALS: normal to inspection, nondistended, normoactive bowel sounds, soft to palpation, non-tender and no masses INSPECTION: Yes normal to inspection AUSCULTATION: Yes normoactive bowel sounds PALPATION: Yes soft, No guarding and No rigid Extremity: GENERAL: Yes normal exam except as noted Neuro: COMMON NORMALS: oriented x3 and CN's II-XII intact bilaterally SENSORIUM/ORIENTATION: Yes alert SPEECH: speech normal Skin: COMMON NORMALS: no rashes or lesions noted GENERAL SKIN EXAM: no rashes or lesions noted Course Vital Signs: Vital signs: Vital Signs Temperature 97.5 F L 08/17/19 12:07 Pulse Rate 74 08/17/19 12:07 Respiratory Rate 16 08/17/19 12:07 Blood Pressure 158/85 08/17/19 12:07 Pulse Oximetry 94 08/17/19 14:41 MDM - Altered Mental Status MDM Narrative: Medical decision making narrative: I reviewed reviewed his records from his recent visit with Dr. Chadwick as well as his hospital discharge summary. He is alert and oriented x3 can answer my questions the biggest problem today as he seems to be very frustrated and his is tearful. She states that she is worried that he is going to try to get in the car and drive to [place] where they used to live. 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 I see the Dr. Chadwick has requested home health to help him set up his medications. Went over test results with patient and spouse. Spent at least 20 minutes answering questions and going over plan. Home health was supposed to come today at 4 PM. Told that she will need to call them in the morning and they should be able to help with some therapy to help with the memory issues as well. Lab Data: Attestation: I reviewed the patient's lab results. Labs: Lab Results 08/17/19 08/17/19 08/17/19 Range/Units 14:30 14:35 14:35 WBC 6.9 (4.0-10.0) 10^3/ uL RBC 5.85 H (4.1-5.3) 10^6/u L Hgb 17.6 H (11.7-16.6) g/dL Hct 52.2 H (42.0-52.0) % MCV 89.2 (80-94) fL MCH 30.1 (28.0-34.0) pg MCHC 33.7 (30.0-36.0) g/dL RDW 12.9 (12.1-15.1) % Plt Count 110 L (130-400) 10^3/c mm MPV 10.5 H (7.4-10.4) fL Total Counted 100 (0-100) Segmented Neutroph ils 60 % Band Neutrophils 2.0 % Lymphocytes (Manua l) 29 % Monocytes (Manual) 7.0 % Absolute Monocytes 0.5 (0.1-0.6) 10^3/c mm Eosinophils (Manua l) 2 % Absolute Eosinophi ls 0.1 (0.0-0.7) 10^3/c mm Platelet Estimate Decreased (Normal) Sodium 139 (136-145) mmol/L Potassium 4.1 (3.5-5.1) mmol/L Chloride 98 (98-107) mmol/L Carbon Dioxide 27 (22-29) mmol/L Anion Gap 18.1 (5-19) BUN 24 H (8-23) mg/dL Creatinine 1.1 (0.7-1.2) mg/dL Glucose 124 H (65-115) mg/dL Calcium 10.9 H (8.5-10.5) mg/dL Total Bilirubin 1.7 H (0.15-1.2) mg/dL AST 21 (0-40) U/L ALT 17 (0-41) U/L Alkaline Phosphata se 70 (40-130) IU/L Total Protein 8.3 (6.6-8.7) g/dL Albumin 5.2 (3.5-5.2) g/dL Globulin 3.1 (1.3-4.6) g/dL Urine Color Yellow (Yellow) Urine Appearance Clear (CLEAR) Urine pH 5 (5-7) Ur Specific Gravit y 1.015 (1.005-1.030) Urine Protein Neg (Negative) Urine Glucose (UA) 4+ H (Normal) Urine Ketones Negative (Negative) Urine Blood 2+ H (Negative) Urine Nitrate Negative (Negative) Urine Bilirubin Neg (NEGATIVE) Urine Urobilinogen Norm (Negative) mg/dL Ur Leukocyte Ritika ase Negative (Negative) Urine RBC 15-25 H (0-2) /hpf Urine WBC 0-4 H (0-5) /hpf Ur Squamous Epith Cells None (0-5) Urine Bacteria None (NONE) Imaging Data^: CT Head: Radiologist's impression: Sinus bradycardia rate 53 left axis deviation nonspecific ST changes Discharge Plan Discharge Patient Disposition: Home, Self-Care Clinical Impression: Altered mental state Qualifiers: Altered mental status type: unspecified Qualified Code(s): R41.82 - Altered mental status, unspecified Condition: Stable Prescriptions: No Action meclizine 25 mg tablet 25 mg PO QID PRN (Reason: dizziness) Qty: 20 RF: 0 carvedilol 25 mg Tablet 25 mg PO BID RF: 0 cetirizine [Zyrtec] 10 mg Tablet 10 mg PO DAILY RF: 0 clopidogrel [Plavix] 75 mg Tablet 75 mg PO DAILY RF: 0 amlodipine [Norvasc] 5 mg Tablet 2.5 mg PO DAILY RF: 0 acetaminophen [Tylenol Extra Strength] 500 mg Tablet 500 mg PO BID PRN (Reason: Pain) RF: 0 famotidine 20 mg Tablet 20 mg PO BID RF: 0 tamsulosin [Flomax] 0.4 mg Capsule 0.4 mg PO DAILY RF: 0 gabapentin 300 mg Capsule 300 mg PO DAILY RF: 0 allopurinol 300 mg Tablet 300 mg PO DAILY RF: 0 metformin 500 mg Tablet Extended Release 24 Hr 1,000 mg PO BID RF: 0 vitamin [id number] acid 0.5-1 mg Tablet 1 tab PO DAILY RF: 0 cholecalciferol (vitamin D3) [Vitamin D3] 2,000 unit Tablet 2,000 unit PO DAILY RF: 0 omega [id number]-fish oil [Fish Oil] 1,000 mg (120 mg-180 mg) Capsule 1 cap PO DAILY RF: 0 Jardiance 25 mg Tablet 12.5 mg PO DAILY RF: 0 docusate sodium 100 mg Capsule 100 mg PO DAILY Qty: 0 RF: 0 lovastatin 40 mg Tablet 40 mg PO DAILY RF: 0 sennosides-docusate sodium [Senexon-S] 8.6-50 mg Tablet 1 tab PO BID RF: 0 fluticasone propionate [Flonase Allergy Relief] 50 mcg/actuation Gladwin,Suspension 1 spray INTRANASAL DAILY RF: 0 glipizide 5 mg Tablet 5 mg PO DAILY RF: 0 guaifenesin [Mucinex] 600 mg Tablet Extended Release 12hr 600 mg PO PRN RF: 0 Spiriva Respimat 1.25 mcg/actuation Mist 2 puff INHALATION DAILY RF: 0 Eliquis 5 mg tablet 5 mg PO BID RF: 0 Ozempic 1 mg/dose (2 mg/1.5 mL) Pen Injector See Rx Instructions .ROUTE .COMPLEX RF: 0 Referrals: Aislinn Beebe, TECHNICAL BUSINESS SYSTEMS ANALYST [Primary Care Provider] - Patient Instructions: Altered Mental Status (ED) Activity Restrictions/Additional Instructions: be sure to ask home health about plan for memory rehabilitation that includes both patient and spouse. Coding Level of Care Code ED Business Project Manager for Chg Fwd Exam Comprehensive The documentation recorded by the Esteban seals Bridget Annette, accurately reflects the service I personally performed and the decisions made by me, Parul Mendez MD Aug 17, 2019 11:57
--- NOTE | 2019-08-17 14:28 | CT_ITS ---
WS: [id number] CT HEAD NONCONTRAST HISTORY: mental status change TECHNIQUE: Contiguous axial imaging performed through the brain in 2.5 mm imaging. Bone and soft tiss ue windows. Sagittal and coronal reformats reviewed. All CT scans at [facility] use at ast one of these dose optimization techniques: automated exposure control; mA and/or kV adjustment pe r patient size (includes targeted exams where dose is matched to clinical indication); or iterative r econstruction. DLP: 871.1 mGy.cm COMPARISON: 08/03/2019 No acute intracranial hemorrhage, midline shift or mass effect. Mild atrophy and mild chronic microvascular ischemic disease. Prominent perivascular space along the inferior RIGHT basal ganglia. Mild chronic microvascular ischemic disease. There is mild cerebellar a nd cerebral atrophy. Ventricles: Normal size with no hydrocephalus. No inferior displacement of the cerebellar tonsils. Paranasal sinuses: As visualized are clear. Mastoid air cells: Well pneumatized. Calvarium and scalp: Skull is intact with no soft tissue edema or swelling. Extensive atherosclerosis in the intracranial carotid arteries. Heavy calcification in the distal jeff tebral and intracranial carotid arteries. CT/CT head wo con* [id number] IMPRESSION: 1. No acute intracranial hemorrhage or edema. 2. Mild atrophy and chronic ischemic disease. 3. Extensive atherosclerosis distal carotid arteries.
[2019-08-17 14:41] VITALS: O2SAT 94
[2019-08-17 14:44] LABS: Hematocrit 52.2 % (42.0-52.0); Hemoglobin 17.6 g/dL (11.7-16.6); Mean Corpuscular HGB Conc 33.7 g/dL (30.0-36.0); Mean Corpuscular Hemoglobin 30.1 pg (28.0-34.0); Mean Corpuscular Volume 89.2 fL (80-94); Mean Platelet Volume 10.5 fL (7.4-10.4); Platelet Count 110 10^3/cmm (130-400); Red Blood Count 5.85 10^6/uL (4.1-5.3); Red Cell Distribution Width 12.9 % (12.1-15.1); White Blood Count 6.9 10^3/uL (4.0-10.0)
[2019-08-17 14:59] LABS: Alanine Aminotransferase 17 U/L (0-41); Albumin Level 5.2 g/dL (3.5-5.2); Alkaline Phosphatase 70 IU/L (40-130); Anion Gap 18.1 (5-19); Aspartate Amino Transferase 21 U/L (0-40); Blood Urea Nitrogen 24 mg/dL (8-23); Calcium 10.9 mg/dL (8.5-10.5); Carbon Dioxide 27 mmol/L (22-29); Chloride 98 mmol/L (98-107); Globulin 3.1 g/dL (1.3-4.6); Glucose 124 mg/dL (65-115); Potassium 4.1 mmol/L (3.5-5.1); Sodium 139 mmol/L (136-145); Total Bilirubin 1.7 mg/dL (0.15-1.2); Total Protein 8.3 g/dL (6.6-8.7)
[2019-08-17 15:08] LABS: Add Urine Microscopic? YES; Bilirubin Urine Neg (NEGATIVE); Blood Urine 2+ (Negative); Glucose Urine UA 4+ (Normal); Ketones Urine Negative (Negative); Leukocyte Esterase Urine Negative (Negative); Nitrate Urine Negative (Negative); Protein Urine Neg (Negative); Specific Gravity, Urine 1.015 (1.005-1.030); Urine Appearance Clear (CLEAR); Urine Color Yellow (Yellow); Urobilinogen Urine Norm (Negative); pH Urine 5 (5-7)
[2019-08-17 15:17] LABS: RBC Urine 15-25 /hpf (0-2)
[2019-08-17 15:18] LABS: Add Urine Culture? Yes; WBC Urine 0-4 /hpf (0-5)
[2019-08-17 15:20] LABS: Total Cells Counted 100 (0-100)
[2019-08-17 15:24] LABS: Absolute Eosinophils 0.1 10^3/cmm (0.0-0.7); Absolute Segmented Neutrophil 4.1 10/cmm (1.6-7.1); Band Neutrophils Absolute 0.1 10^3/cmm (0.0-1.2); Eosinophils 2 %; Lymphocytes 29 %; Monocytes Absolute 0.5 10^3/cmm (0.1-0.6); Platelet Estimate Decreased (Normal); Segmented Neutrophils 60 %
[2019-08-17 16:35] VITALS: BP 132/69; PULSE 103; RESP 16; O2SAT 95
== END 2019-08-17 16:36 | disposition home or self-care (01) ==
PROVIDERS: Emergency Provider Emergency Medicine; Family Provider Nurse Practitioner Family; PCP Nurse Practitioner Family
DX: R41.82 Altered mental status, unspecified (principal); Z87.891 Personal history of nicotine dependence; Z79.01 Long term (current) use of anticoagulants; Z86.73 Personal history of transient ischemic attack (TIA), and cerebral infarction without residual deficits
CPT/HCPCS: 36415; 70450; 80053; 81001; 85007; 85027; 87086; 99283

== ENCOUNTER 2019-08-24 10:43 | Outpatient (RCR) | payer MEDICARE, SELFPAY ==
--- NOTE | 2019-08-23 13:54 | MR_ITS ---
WS: [id number] MRI BRAIN WITH AND WITHOUT CONTRAST HISTORY: MEMORY LOSS; confusion, evaluation OF NEW SYMPTOMS; HX CANCER COMPARISON: 07/04/2019, CT head 08/17/2019 TECHNIQUE: Multiplanar imaging performed through the brain with Prohance 15 ml's IV. Multifocal areas of abnormal diffusion abnormalities and FLAIR signal abnormalities. This predominant ly involving the LEFT hippocampal formation with additional more focal diffusion signal abnormalities extending towards the temporal occipital junction posteriorly. Corresponding ADC map is near normal signal. There is additional focal diffusion-weighted abnormality in the LEFT cerebellum and also in t he LEFT fajardo radiata. The previously described infarcts on 07/04/2019 resolved. There are some additional cortical areas of very subtle enhancement throughout the brain which will n eed short-term follow-up. The most concerning areas of subtle enhancement are towards the LEFT fronta l vertex. No susceptibility artifacts or prior lacunar infarcts. Mild prominence of the ventricles. Clivus and pituitary gland are normal. On the postcontrast images there is nodular, gyral enhancement in the location of the RIGHT body of t he hippocampus. The more focal diffusion-weighted abnormalities extending along the RIGHT temporal oc cipital junction also enhance. This enhancement is new since the prior study. Dural venous sinuses are normal. Paranasal sinuses: Well aerated with no significant disease. Mastoid air cells: Normal. Calvarium and scalp: Normal. Notified Shorty Chadwick MD at 08/23/2019 4:22 PM. MR/MR head wo/w con [id number] IMPRESSION: 1. Significant change in appearance to the brain since the prior study. Previo usly described infarcts on 07/04/2024 resolved. 2. Suspect new findings within the brain of subacute infarcts and possible ear ly metastatic disease. New diffusion-weighted abnormalities with enhancement in the RIGHT hippocampal body and the junction between the RIGHT temporal occipit al lobes and LEFT semiovale. There is some enhancement in a gyral pattern which suggests these could be subacute infarcts involving the RIGHT medial temporal lobe. There are additional cortical based foci of enhancement greatest towards the LEFT frontal vertex. These additional findings may be metastatic lesions. S uggest follow-up MRI brain with contrast in 2 weeks to evaluate for any change. If this is a subacute infarct with gyral enhancement in the RIGHT medial tempo ral lobe should normalize. Suspicious for additional sites of very early metast atic disease.
--- NOTE | 2019-08-24 13:07 | ONC FU_ITS ---
Dr. Chadwick Patient Follow-Up Note Patient: Lynnette Sevilla Unit #: [id number]: 1940 Dicatated By: Shorty Chadwick M.D.Date of Visit:Aug 24, 2019 Onc Med Follow-up/Prog Note Chief Complaint: Hemochromatosis/lung cancer. 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 His disease was stage IB (T2a, N0, M0) at initial diagnosis, but with subsequent progression to stage TIGIST (M1b). He also has hereditary hemochromatosis. In February [address] Tyler with persistent cough. His evaluation included chest CT on 03/04/2017. It showed a spiculated density in the medial aspect of the anterior segment of the right upper lobe. It measured 1.8 x 2.4 x 1.8 cm and it was new compared to a previous study from November 2013. There was no associated mediastinal or hilar adenopathy, and there was no evidence of liver or adrenal metastases. He underwent bronchoscopy on 04/06/2017. There were no endobronchial lesions identified. The lesion was found to be avid by PET/CT. There was no evidence of metastatic involvement. He underwent right upper lobectomy with mediastinal lymph node biopsy on 04/29/2017. Pathology showed low-grade (grade 1-2) adenocarcinoma measuring 3.2 x 2.4 cm. There was penetration into visceral pleura and there was evidence of lymphovascular space invasion. The margins of resection were free, and there was no involvement in 1 mediastinal lymph node, in 1 lymph node at the right mainstem bronchus, and in 2 hilar lymph nodes. He has continued on observation/expectant management following the surgery, as there appeared to be no indication for adjuvant chemotherapy. I had initially seen him in October 2012 in regard to elevated hemoglobin/hematocrit levels and elevated serum iron. His evaluation at that time showed his hemoglobin elevated at 18.1 g with hematocrit 52%. White count and platelet count were normal. The serum iron was in the upper normal range at 145 mcg/dL with transferrin saturation 30.8%. The serum ferritin, though, was elevated at 606 ng/mL. He had additional evaluation including an erythropoietin level which was in the normal range at 12 mIU/mL. A MICHAEL 2 gene mutation study was negative. The HFE gene analysis showed double heterozygosity for the C282Y and the H63D mutations, consistent with hereditary hemochromatosis. He has been managed on a phlebotomy program. His other medical illnesses include hypertension, hyperlipidemia, type 2 diabetes, coronary artery disease, peripheral vascular disease, and degenerative arthritis. He underwent coronary artery bypass surgery in 1996 and he underwent an arterial bypass procedure to the right leg in 1999. In 2013 he was found to have significant hypoxemia. On evaluation he was found to have COPD and obstructive sleep apnea. 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 Also noted was calcific plaque at the origins of the common iliac arteries at 54% on the left and 60% on the right. He has a history of smoking 1-1 1/2 packs of cigarettes daily, but he quit smoking in 1996. INTERIM HISTORY: Surveillance chest CT on 12/07/2018 showed stable postoperative changes from prior right upper lobectomy. There was long-term stability of left upper lower lobe nodules. There was chronic emphysema. There was no evidence for recurrent or metastatic neoplastic process. He continued observation/expectant management for the lung cancer. He had then presented to Dr. Tyler's office with swelling and redness in the left arm, in the area of the antecubital fossa. Venous Doppler of the left arm on 02/11/2019 showed extensive occlusive thrombus in the left basilic vein. All other veins of the left upper extremity appeared free of thrombus. He was started on anticoagulation with apixaban. He was seen here for follow-up on 02/25/2019. He then had a restaging PET/CT on 03/10/2019. It showed interval development of abnormal activity in a lytic lesion in the left femoral neck, suspicious for metastatic disease. There was interval resolution of the small right upper lobe lung mass. There were no other areas of abnormal uptake on that study. With those findings, he was referred to Dr. Chin. On 03/17/2019 he underwent prophylactic open reduction with interval fixation of the left hip. Pathology on the bone fragments did confirm metastatic carcinoma consistent with the previous diagnosis of pulmonary infiltrating adenocarcinoma. Following recovery from the surgery he was seen by Dr. Boggs for palliative radiation. He completed treatment on 04/18/2019 to a total dose of 3900 cGy. He tolerated the treatment well. In the meantime, I had also requested a next generation sequencing study. It was performed on the original lung tumor, as the specimen from the left femur was insufficient for analysis. That study showed low PD-L1 expression at 7%. The mutation burden, though, was high. The tumor was negative for EGFR, BRAF, and KRAS mutations, and it also tested negative for the ALK and ROS1 rearrangements. The NTRK fusion also was not detected. I had seen him for a follow-up visit on 05/02/2019. He had restaging CT scans on 06/01/2019 showed no evidence for recurrent disease in the chest, abdomen, or pelvis. In the setting of a treated, solitary metastasis, he was recommended to continue on observation/expectant management. On 06/28/2019 he was seen in the emergency room with complaints of dizziness. CT of the head with and without contrast showed no acute findings. He was diagnosed with vestibular neuronitis. On 07/04/2019 he was admitted to the hospital after returning to the emergency room with acute mental status changes. His repeat head CT showed a 10 mm focal area of low-attenuation in the left frontal lobe which appeared new from the recent study. Was felt to possibly represent a subacute infarct. Further evaluation with brain MRI showed multifocal patchy areas of acute ischemia involving the YUNG territories bilaterally. The largest area of ischemia measured approximately 1 cm. There was no evidence of mass-effect or midline shift. The clinical presentation appeared most consistent with cancer related hypercoagulability. As it occurred while on a therapeutic dose of apixaban, his anticoagulation was transitioned to therapeutic Lovenox. His echocardiogram showed normal left ventricular cavity size and systolic function with estimated ejection fraction at 60%. There were no significant valvular abnormalities noted. There appeared to be no significant change compared to her previous study from July 2018. His bilateral carotid Doppler studies showed just moderate atheromatous plaque bilaterally. Head MRA showed no evidence of high-grade proximal stenosis or aneurysm. He was discharged to [facility] for rehab. At that point, he was still having significant expressive aphasia, but his confusion had improved significantly. He subsequently was able to return home. Restaging CT scans of the chest, abdomen, and pelvis on 07/25/2019 showed stable 5 mm noncalcified pulmonary nodule in the left upper lobe and a 3 mm noncalcified nodule in the left lower lobe. There was no mediastinal or hilar adenopathy. A few scattered hypodensities throughout the liver are too small to characterize but similar to prior studies. A new 7 mm hypodensity was noted in the lower pole of the right kidney. There was increased density within the lumen of a contracted gallbladder, suspicious for stones and/or chronic cholecystitis. There was no osteoblastic or osteolytic bone disease identified. On 08/03/2019 he was seen in the emergency room with dizziness. He has repeat noncontrast head CT showed atrophy and chronic deep white matter ischemic change with no acute intracranial abnormality identified. He was diagnosed with vertigo and treated with meclizine. I had seen him for a follow-up visit on 08/08/2019. He had opted to stop the Lovenox injections, and he had restarted anticoagulation with apixaban. He also was taking Plavix. He was still having some difficulty with his speech and he was having some confusion at times and some difficulty with memory. Subsequent to that visit, his had called and reported that his memory and confusion were continuing to worsen. He was then scheduled for repeat brain MRI. That study was done yesterday, and it showed multifocal areas of abnormal diffusion abnormalities and flair signal abnormalities. It was noted to predominantly involve the left hippocampal formation with additional more focal diffusion signal abnormalities extending towards the temporal occipital junction posteriorly. That finding appeared to be most consistent with worsening subacute infarcts. Also noted, though, were additional cortical areas of very subtle enhancement throughout the brain which were suspicious for metastatic lesions. The most concerning were in the left frontal vertex, He returns today with his to discuss the MRI results. She indicates that his memory is significantly worse, to the extent that at times he does not remember that she is his and that he does not remember where he lives. He has a tendency to get aggravated with her. She is having more difficulty trying to take care of him at home. Medications: Acetaminophen Extra Strength 1 (500 mg) Tablet Oral b.i.d., Allopurinol 1 Tablet (of 300 mg) Oral daily, amLODIPine Besylate 1 Tablet (of 2.5 mg) Oral daily, Atorvastatin Calcium 1 Tablet (of 20 mg) Oral daily, B-12 1 Tablet (of 1000 mcg) Tablet Oral daily, Bisacodyl 1 Tablet (of 5 mg) Tablet, enteric coated Oral daily PRN, Carvedilol 1 (25 mg) Tablet Oral b.i.d., Cetirizine HCl 1 Tablet (of 10 mg) Oral daily, Cholecalciferol 1 Capsule (of 2000 Units) Oral daily, [employer]S Mucus Extended Release 1 Tablet (of 600 mg) Tablet SR 12 HR Oral daily PRN, Docusate Sodium 1 Tablet (of 100 mg) Oral daily, Dulcolax Milk of Magnesia 30 mL (of 400 mg/5mL) Suspension Oral daily PRN, Eliquis 1 Tablet (of 5 mg) Oral b.i.d., Famotidine 1 Tablet (of 20 mg) Tablet Oral b.i.d., Fish Oil 1 (1200 mg) Capsule Oral daily, Flonase Suspension Nasal, Gabapentin 1 Tablet (of 300 mg) Oral daily, Jardiance 0.5 Tablet (of 12.5 ) Oral daily, Lovastatin 1 Tablet (of 40 mg) Oral b.i.d., Meclizine HCl 1 Tablet (of 25 mg) Oral daily PRN, MetFORMIN HCl 2 Tablet (of 500 mg) Oral b.i.d., Plavix 75 mg - Take 1 Tablet Oral daily, Spiriva Respimat Aerosol, solution Inhalation, Tamsulosin HCl 1 (0.4 mg) Capsule Oral daily Allergies: PENICILLIN AND ALEVE Vital Signs: Performed on Aug 24, 2019 11:21 Height - 65.00 in Weight - 166.8 lbs (LOW) BSA - 1.83 sq.m BMI - 27.76 Temperature - 97.5 F (LOW) Pulse - 65 /min Respiration - 18 /min BP - 115/63 mm(hg) O2 Sat - 96 % Pain - 7 Lab/Imaging: Test performed on Aug 08, 2019 13:06 Sodium 140 mmol/L Potassium 4.6 mmol/L Chloride 101 mmol/L CO2 28 mmol/L Anion Gap 15.6 BUN 19 mg/dL Creatinine 1.0 mg/dL Cr Clearance (Est) 67.5500 mL/min Glucose 170 mg/dL Calcium 10.3 mg/dL Protein, Total 7.3 g/dL Albumin 4.2 g/dL Globulin 3.1 g/dL Bilirubin, Total 1.3 mg/dL ALT (SGPT) 25 U/L AST (SGOT) 19 U/L Alkaline Phosphatase 62 IU/L WBC 6.0 10 3/uL RBC 5.17 10 6/uL HGB 15.7 g/dL HCT 46.6 % MCV 90.1 fL MCH 30.4 pg MCHC 33.7 g/dL RDW 13.4 % Platelet Count 118 10 3/cmm MPV 10.8 fL Neutrophils 3.9 10 3/uL Lymphocytes 1.2 10 3/uL Monocytes 0.5 10 3/uL Eosinophils 0.4 10 3/uL Basophils 0.1 10 3/uL Neutrophil % 64.8 % Lymphocyte % 19.3 % Monocyte % 8.4 % Eosinophil % 6.2 % Basophils % 1.0 % Impression: 1. Patient with nonsmall cell cancer (low-grade adenocarcinoma) involving the upper lobe of the right lung, stage IB (T2a, N0, M0). 2. He underwent right upper lobectomy with mediastinal lymph node biopsy on 04/29/2017. 3. He has hereditary hemochromatosis. He was found to be doubly heterozygous for the C282Y and the H63D mutations. He has had a very good response to phlebotomy, with his subsequent ferritin levels maintained at less than 50 ng/mL compared to a pretreatment level of greater than 600. 4. He has underlying lung disease including COPD and obstructive sleep apnea, and he has associated chronic hypoxia. 5. 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 His other medical illnesses include: 6. Hypertension. 7. Hyperlipidemia. 8. Type II diabetes. 9. Coronary artery disease. 10. Peripheral arterial disease. 11. Degenerative arthritis. In January 2019 he had presented with a deep vein thrombosis of the left arm. It appeared to have been an unprovoked thrombosis. He started anticoagulation with apixaban. His restaging PET/CT on 03/10/2019 showed evidence of a single site of metastatic disease in the form of a lytic bone lesion in the left femoral neck. He underwent prophylactic ORIF of the left hip on 03/17/2019. Pathology confirmed metastatic adenocarcinoma. Following recovery from the surgery, he was seen by Dr. Boggs for palliative radiation. He completed treatment on 04/18/2019 to a total dose of 3900 cGy. During that time, he had additional pathologic evaluation with the next generation sequencing study on his primary lung tumor. It showed low PD-L1 expression at 7%. The mutation burden was high. There were no actionable mutations identified. His restaging CT scans on 06/01/2019 showed no evidence for recurrent disease in the chest, abdomen, or pelvis. In the setting of a treated, solitary metastasis, he was recommended to continue on observation/expectant management. He continued anticoagulation with apixaban. On 07/04/2019 he was admitted to the hospital with multiple cerebral infarcts. I had suspected that it was another manifestation of cancer related hypercoagulability. As it occurred while on a therapeutic dosage of apixaban, his anticoagulation had been transitioned to Lovenox. He was initially transferred to [facility] group home for further rehabilitation, but he subsequently was able to return home. His restaging CT scans of the chest, abdomen, and pelvis on 07/25/2019 showed no obvious progression of the lung cancer. He had then opted to stop the Lovenox injections and restart anticoagulation with apixaban. He also was taking Plavix. He had subsequently developed further decline in cognitive function. His repeat brain MRI on 08/23/2019 showed areas of enhancement which were suspicious for worsening subacute infarcts. There were additional small enhancing lesions which were suspicious for metastases. Plan: He is agreeable to changing his anticoagulation back to Lovenox injections. I also want to get him scheduled for restaging PET/CT, as the clinical picture is worrisome for progression of the underlying lung cancer. I will plan to have his case presented at tumor board tomorrow for consideration of palliative brain radiation. Overall, his condition and prognosis appear to be poor. We discussed the fact that his is having more difficulty trying to take care of him at home. He indicates he is willing to consider placement, and I will check with the [facility] regarding his benefits for care in a long-term facility. [id number] time with patient was more than 30 minutes, greater than 50% spent in counseling/discussion. Signed By: Shorty Chadwick M.D. <<Signature on File>>
--- NOTE | 2019-09-09 10:47 | ONCRAD EPV_ITS ---
Radiation Oncology Established Patient Visit Patient: Dia MR#: [id number] : 1940> Age: 79> Sex: Male> Dictated by: Dr. Van Gomez Date of Service: 09/09/2019 Referring Physician(s) : Dr. Pedro Tyler Diagnosis: C79.51 - Secondary malignant neoplasm of bone, Diagnosed 03/15/2019 (Active) I82.622 - Acute embolism and thrombosis of deep veins of left upper extremity, Diagnosed 02/25/2019 (Active) C34.11 - Malignant neoplasm of upper lobe, right bronchus or lung, Diagnosed 05/13/2017 (Active) Stage IB, T2a, N0, M0 R09.02 - Hypoxemia, Diagnosed 11/23/2013 (Active) E83.110 - Hereditary hemochromatosis, Diagnosed 11/23/2012 (Active) Radiotherapy to Date: Left hip, 3900 cGy in 13 fractions in March 2019, postoperative Chief Complaint / History of Present Illness: Mr. 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 He underwent surgical stabilization of metastasis in the left femur last year. He received postop radiation in March 2019 as noted above. He has had chronic pain in the hip ever since surgery. He is treatment course has been complicated by stroke. He has difficulty communicating. He had an MRI of the brain 08/23/2019 that had uncertain findings that could represent subacute infarcts or early metastatic disease. A follow-up MRI of the brain with contrast at a 2-week interval was recommended by the radiologist. That was not done but the patient did present to the emergency room 09/03/2019 with some alteration in mental status and stroke protocol CT of the head was negative. A PET scan was performed 09/01/2019. The patient continues to have some activity in the left hip area which could be postoperative, active cancer, or a combination of the two.. There does not appear to be any loosening of the hardware in the left hip area. A new finding is a a lytic metastasis in the upper femoral neck on the right about 2 cm in size. No active disease was seen outside the hip area. Mr. Sevilla is referred for palliative radiation to the right hip to alleviate discomfort and to try to avoid a pathologic fracture. Current Medications: Acetaminophen Extra Strength, allopurinol, amLODIPine Besylate, atorvastatin Calcium, b-12, bisacodyl, carvedilol, cetirizine HCl, cholecalciferol, cVS Mucus Extended Release, docusate Sodium, dulcolax Milk of Magnesia, eliquis, enoxaparin Sodium, famotidine, fish Oil, flonase, gabapentin, gabapentin, hYDROcodone-Acetaminophen, jardiance, lovastatin, meclizine HCl, metFORMIN HCl, plavix, spiriva Respimat, tamsulosin HCl. Allergies: PENICILLIN AND ALEVE. Current Complaints / Review of Systems: . Vital Signs: Performed on 09/09/2019 9:26 AM BMI - 27.79 kg/m2 (high), Height - 65.00 in, Weight - 167.0 lbs, Temperature - 97.3 f, Pulse - 67, Respiration - 20, O2 Sat - 94 % (low), Pain - 7 and BP - 115/ 70 mm(hg). Physical Exam: General: Alert and oriented x 3. Moderate distress concerning his cancer. Poor incite into the overall situation. He is primarily focused on his left hip discomfort. Severe expressive aphasia complicates the interview. His tried to help, but she has difficulty understanding him as well. Performance Status: 2 - Ambulatory/capable of all self-care, unable to perform any work activities. Up and about more than 50% of waking hours. (ECOG) Lab: None pending. Test performed on 08/08/2019 1:06 PM Platelet Count - 118 10 3/cmm (low), MPV - 10.8 fl (high), Cr Clearance (Est) - 67.5500 ml/min (low), Glucose - 170 mg/dl (high) and Bilirubin, Total - 1.3 mg/dl (high). Pathology: Primary, c79.51 - secondary malignant neoplasm of bone, Diagnosed 03/15/2019 (active), Primary, i82.622 - acute embolism and thrombosis of deep veins of left upper extremity, Diagnosed 02/25/2019 (active), Primary, c34.11 - malignant neoplasm of upper lobe, right bronchus or lung, Diagnosed 05/13/2017 (active) stage ib, t2a, n0, m0, Primary, r09.02 - hypoxemia, Diagnosed 11/23/2013 (active), Primary, e83.110 - hereditary hemochromatosis, Diagnosed 11/23/2012 (active), Secondary, 790.6 - other abnormal blood chemistry, Diagnosed 10/26/2012 (active) and Secondary, 289.9 - unspecified diseases of blood and blood-forming organs, Diagnosed 10/26/2012 (active). Imaging: See HPI Impression: Mr. 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 He has a new lytic metastasis in the right femoral neck area. If this metastasis not treated, it will progress to the point where a pathologic fracture is virtually inevitable. I discussed this finding with and Mrs. Sevilla. I recommended a course of palliative radiation over 2 weeks. I explained that the main goal of the treatment is to prevent a pathologic fracture, though it should also help with his mild to moderate right hip discomfort. (He tends to minimize the right hip discomfort, complaining about the left hip pain he has had ever since surgery). I discussed that hopefully the radiation will halt the growth of the metastasis and result in deposition of new bone. However, the risk of a pathologic fracture does exist in spite of radiation. The patient and his are also worried about the results of the recent MRI of the brain. I explained to them that the noncontrast stroke protocol head CT that was done in the emergency room 09/03/2019 would not be helpful in evaluating the concerns that the radiologist expressed after the MRI of the brain on 08/23/2019. I recommended that we go ahead and order an MRI of the brain with contrast next week. The patient and his are both in agreement. The patient???s also asked that I discuss the results of the PET scan, and I went through the report with them. Simulation of the right hip will be performed today. Signed by: 09/09/2019 10:46:45 AM <<Signature on File>> Time spent with patient: CPT Code: CPT Code:
== END 2019-08-30 06:00 | disposition home or self-care (01) ==
LOC: ONCMED 10:43
PROVIDERS: Family Provider Nurse Practitioner Family; PCP Nurse Practitioner Family; Visit Provider Internal Medicine Medical Oncology
DX: C34.11 Malignant neoplasm of upper lobe, right bronchus or lung (principal); C79.51 Secondary malignant neoplasm of bone; E83.110 Hereditary hemochromatosis; I10 Essential (primary) hypertension; I69.911 Memory deficit following unspecified cerebrovascular disease; G93.9 Disorder of brain, unspecified; I69.928 Other speech and language deficits following unspecified cerebrovascular disease; R09.02 Hypoxemia; E78.5 Hyperlipidemia, unspecified; E11.42 Type 2 diabetes mellitus with diabetic polyneuropathy; I25.10 Atherosclerotic heart disease of native coronary artery without angina pectoris; M19.90 Unspecified osteoarthritis, unspecified site; G47.33 Obstructive sleep apnea (adult) (pediatric); J43.9 Emphysema, unspecified; Z79.01 Long term (current) use of anticoagulants; Z79.02 Long term (current) use of antithrombotics/antiplatelets; Z79.84 Long term (current) use of oral hypoglycemic drugs; Z90.2 Acquired absence of lung [part of]; Z87.891 Personal history of nicotine dependence; Z95.1 Presence of aortocoronary bypass graft; Z86.718 Personal history of other venous thrombosis and embolism; Z92.3 Personal history of irradiation
CPT/HCPCS: 70553; 77290; 77295; 77300; 77332; 77334; 99213; 99214; A9579

== ENCOUNTER 2019-08-30 15:16 | Emergency (ER) | payer MEDICARE, SELFPAY ==
[2019-08-30 15:20] VITALS: BP 137/66; PULSE 72; RESP 16; TEMP 36.6; O2SAT 91; BMI 28.3
--- NOTE | 2019-08-30 15:28 | ED_ITS ---
Entered by Alessia Rg, acting as scribe for Devendra Franz DO HPI - Neuro Symptoms/Deficit General: Chief Complaint: Neuro Symptoms/Deficit Stated Complaint: POSS STROKE Time Seen by Provider: 08/30/19 15:28 History of Present Illness: HPI Narrative: 79 yo male presents to ED with complaints of dizziness. He explains lightheaded, began about 45 minutes ago after he just gotten up from eating lunch, had been to town doing errands for about an hour, denies other symptoms, spouse states the patient was slurring his words earlier and he didn't want to take his Meclazine at the time, he doesn't know if anything makes the dizziness worse, patient had a stroke about 3 weeks ago, anxious PFSH ED PFSH: Social History Smoking and tobacco status: former smoker Course Vital Signs: Vital signs: Vital Signs Temperature 98 F 08/30/19 15:20 Pulse Rate 72 08/30/19 15:20 Respiratory Rate 16 08/30/19 15:20 Blood Pressure 137/66 08/30/19 15:20 Pulse Oximetry 91 08/30/19 15:20 MDM - Neuro Symptoms/Deficit Lab Data: Labs: Lab Results 08/30/19 08/30/19 08/30/19 Range/Units 16:18 16:18 16:18 WBC 7.5 (4.0-10.0) 10^3/ uL RBC 5.12 (4.1-5.3) 10^6/u L Hgb 15.5 (11.7-16.6) g/dL Hct 46.1 (42.0-52.0) % MCV 90.0 (80-94) fL MCH 30.3 (28.0-34.0) pg MCHC 33.6 (30.0-36.0) g/dL RDW 12.9 (12.1-15.1) % Plt Count 88 L (130-400) 10^3/c mm MPV 11.1 H (7.4-10.4) fL Neut % (Auto) 67.4 % Lymph % (Auto) 15.8 % Butler % (Auto) 7.2 % Eos % (Auto) 8.8 % Baso % (Auto) 0.5 % Neut # (Auto) 5.1 (1.8-7.7) 10^3/u L Lymph # (Auto) 1.2 (0.8-4.8) 10^3/u L Butler # (Auto) 0.5 (0.2-0.9) 10^3/u L Eos # (Auto) 0.7 (0.0-0.8) 10^3/u L Baso # (Auto) 0.0 (0.0-0.1) 10^3/u L Nucleated RBC % (a uto) 0 % Nucleated RBCs # 0.0 /100WBC PT 17.90 H (10.5-13.3) SECO NDS INR 1.43 H (0.8-1.2) APTT 33.2 (23.9-36.7) SECO NDS Sodium 141 (136-145) mmol/L Potassium 4.0 (3.5-5.1) mmol/L Chloride 103 (98-107) mmol/L Carbon Dioxide 24 (22-29) mmol/L Anion Gap 18.0 (5-19) BUN 20 (8-23) mg/dL Creatinine 1.0 (0.7-1.2) mg/dL Glucose 166 H (65-115) mg/dL Calculated Osmolal ity 292 (285-295) mOsm/k g Calcium 10.2 (8.5-10.5) mg/dL Total Bilirubin 1.1 (0.15-1.2) mg/dL AST 18 (0-40) U/L ALT 11 (0-41) U/L Alkaline Phosphata se 50 (40-130) IU/L Total Protein 6.7 (6.6-8.7) g/dL Albumin 4.3 (3.5-5.2) g/dL Globulin 2.4 (1.3-4.6) g/dL Urine Color (Yellow) Urine Appearance (CLEAR) Urine pH (5-7) Ur Specific Gravit y (1.005-1.030) Urine Protein (Negative) Urine Glucose (UA) (Normal) Urine Ketones (Negative) Urine Blood (Negative) Urine Nitrate (Negative) Urine Bilirubin (NEGATIVE) Urine Urobilinogen (Negative) mg/dL Ur Leukocyte Ritika ase (Negative) 03/10/20 Range/Units 16:50 WBC (4.0-10.0) 10^3/ uL RBC (4.1-5.3) 10^6/u L Hgb (11.7-16.6) g/dL Hct (42.0-52.0) % MCV (80-94) fL MCH (28.0-34.0) pg MCHC (30.0-36.0) g/dL RDW (12.1-15.1) % Plt Count (130-400) 10^3/c mm MPV (7.4-10.4) fL Neut % (Auto) % Lymph % (Auto) % Butler % (Auto) % Eos % (Auto) % Baso % (Auto) % Neut # (Auto) (1.8-7.7) 10^3/u L Lymph # (Auto) (0.8-4.8) 10^3/u L Butler # (Auto) (0.2-0.9) 10^3/u L Eos # (Auto) (0.0-0.8) 10^3/u L Baso # (Auto) (0.0-0.1) 10^3/u L Nucleated RBC % (a uto) % Nucleated RBCs # /100WBC PT (10.5-13.3) SECO NDS INR (0.8-1.2) APTT (23.9-36.7) SECO NDS Sodium (136-145) mmol/L Potassium (3.5-5.1) mmol/L Chloride (98-107) mmol/L Carbon Dioxide (22-29) mmol/L Anion Gap (5-19) BUN (8-23) mg/dL Creatinine (0.7-1.2) mg/dL Glucose (65-115) mg/dL Calculated Osmolal ity (285-295) mOsm/k g Calcium (8.5-10.5) mg/dL Total Bilirubin (0.15-1.2) mg/dL AST (0-40) U/L ALT (0-41) U/L Alkaline Phosphata se (40-130) IU/L Total Protein (6.6-8.7) g/dL Albumin (3.5-5.2) g/dL Globulin (1.3-4.6) g/dL Urine Color Yellow (Yellow) Urine Appearance Clear (CLEAR) Urine pH 5 (5-7) Ur Specific Gravit y 1.010 (1.005-1.030) Urine Protein Neg (Negative) Urine Glucose (UA) 4+ H (Normal) Urine Ketones Negative (Negative) Urine Blood Neg (Negative) Urine Nitrate Negative (Negative) Urine Bilirubin Neg (NEGATIVE) Urine Urobilinogen 1 H (Negative) mg/dL Ur Leukocyte Ritika ase Negative (Negative) Imaging Data^: CT Head: Radiologist's impression: [facility] [address] [place] [address] CT Scan Report Signed Patient: Lynnette Sevilla RUnit #: [id number] : 2Acct#:[id number] Age/Sex: 79 / MADM Date: 08/30/19 Loc: ERRoom/Bed: Attending Dr: Ordering Provider/Ordering MD: Devendra Franz DO Date of Service: 08/30/19 Procedure(s): CT head wo con* [id number] Accession Number(s): [id number] Report Number: [id number] WS: [id number] CT HEAD NONCONTRAST HISTORY: Symptoms of Acute Stroke TECHNIQUE: Contiguous axial imaging performed through the brain in 2.5 mm imaging. Bone and soft tissue windows. Sagittal and coronal reformats reviewed. All CT scans at [facility] use at least one of these dose optimization techniques: automated exposure control; mA and/or kV adjustment per patient size (includes targeted exams where dose is matched to clinical indication); or iterative reconstruction. DLP: 885.19 mGy.cm COMPARISON: 08/17/2019, MRI brain 08/23/2019. No acute intracranial hemorrhage, midline shift or mass effect. Mild atrophy noted bilaterally. There are bilateral areas of decreased attenuation from chronic ischemic disease. Volume loss in the medial RIGHT temporal and occipital lobes similar to the recent MRI examination. There is no interval hemorrhage or change. Very small area suspicious for metastatic disease are not evident by CT at this time. Ventricles: Normal size with no hydrocephalus. Paranasal sinuses: As visualized are clear. Mastoid air cells: Well pneumatized. Calvarium and scalp: Skull is intact with no soft tissue edema or swelling. Heavy calcification in the distal vertebral arteries and the intracranial carotid arteries. CT/CT head wo con* [id number] IMPRESSION: 1. No acute intracranial hemorrhage or edema. 2. Focal areas of decreased attenuation from chronic ischemic disease and prior infarcts throughout the brain are stable. 3. Recently described possible early metastatic lesions described on the MRI of 08/23/[address] due to their small size. Dictated By:Sandhya Aquino DO Signed By:Sandhya Aquino DOSigned Date/Time:08/30/191623 DD/ Discharge Plan Discharge Patient Disposition: Home, Self-Care Clinical Impression: Dizziness Condition: Stable Prescriptions: No Action meclizine 25 mg tablet 25 mg PO QID PRN (Reason: dizziness) Qty: 20 RF: 0 carvedilol 25 mg Tablet 25 mg PO BID RF: 0 cetirizine [Zyrtec] 10 mg Tablet 10 mg PO DAILY PRN (Reason: Allergy Symptoms) RF: 0 clopidogrel [Plavix] 75 mg Tablet 75 mg PO DAILY RF: 0 amlodipine [Norvasc] 5 mg Tablet 2.5 mg PO DAILY RF: 0 famotidine 20 mg Tablet 20 mg PO BID PRN (Reason: unknown) RF: 0 tamsulosin [Flomax] 0.4 mg Capsule 0.4 mg PO DAILY RF: 0 gabapentin 300 mg Capsule 300 mg PO DAILY RF: 0 allopurinol 300 mg Tablet 300 mg PO DAILY RF: 0 metformin 500 mg Tablet Extended Release 24 Hr 1,000 mg PO BID RF: 0 vitamin [id number] 0.5-1 mg Tablet 1 tab PO DAILY RF: 0 cholecalciferol (vitamin D3) [Vitamin D3] 2,000 unit Tablet 2,000 unit PO DAILY RF: 0 omega [id number] oil [Fish Oil] 1,000 mg (120 mg-180 mg) Capsule 1 cap PO DAILY RF: 0 Jardiance 25 mg Tablet 12.5 mg PO DAILY RF: 0 lovastatin 40 mg Tablet 40 mg PO BID RF: 0 fluticasone propionate [Flonase Allergy Relief] 50 mcg/actuation [place],Suspension 1 - 2 spray INTRANASAL DAILY PRN (Reason: unknown) RF: 0 guaifenesin [Mucinex] 600 mg Tablet Extended Release 12hr 600 mg PO PRN RF: 0 Spiriva Respimat 1.25 mcg/actuation Mist 2 puff INHALATION DAILY PRN (Reason: unknown) RF: 0 Eliquis 5 mg tablet 5 mg PO BID RF: 0 Ozempic 1 mg/dose (2 mg/1.5 mL) Pen Injector See Rx Instructions .ROUTE .COMPLEX RF: 0 [place] 5-325 mg Tablet 1 - 2 tab PO Q4H PRN (Reason: Pain) RF: 0 valsartan 320 mg Tablet See Rx Instructions .ROUTE .COMPLEX RF: 0 Lovenox 80 mg/0.8 mL Syringe 80 mg SUBCUT Q12H RF: 0 docusate sodium 100 mg capsule 100 mg PO DAILY PRN (Reason: Constipation) RF: 0 Discharge Orders: Discharge Order (Routine); Ordered 08/30/19 Ordered By: Devendra Franz Referrals: Aislinn Beebe, PHYSICAL THERAPY NURSE [Primary Care Provider] - Coding Level of Care Code ED Log Scaler for g Fwd The documentation recorded by the Arcenio seals Valerie R, accurately reflects the service I personally performed and the decisions made by Maria M yanes Donald P, DO Aug 30, 2019 15:16
--- NOTE | 2019-08-30 15:33 | CT_ITS ---
WS: [id number] CT HEAD NONCONTRAST HISTORY: Symptoms of Acute Stroke TECHNIQUE: Contiguous axial imaging performed through the brain in 2.5 mm imaging. Bone and soft tiss ue windows. Sagittal and coronal reformats reviewed. All CT scans at [facility] use at le ast one of these dose optimization techniques: automated exposure control; mA and/or kV adjustment pe r patient size (includes targeted exams where dose is matched to clinical indication); or iterative r econstruction. DLP: 885.19 mGy.cm COMPARISON: 08/17/2019, MRI brain 08/23/2019. No acute intracranial hemorrhage, midline shift or mass effect. Mild atrophy noted bilaterally. There are bilateral areas of decreased attenuation from chronic ische raffy disease. Volume loss in the medial RIGHT temporal and occipital lobes similar to the recent MRI e xamination. There is no interval hemorrhage or change. Very small area suspicious for metastatic dise ase are not evident by CT at this time. Ventricles: Normal size with no hydrocephalus. Paranasal sinuses: As visualized are clear. Mastoid air cells: Well pneumatized. Calvarium and scalp: Skull is intact with no soft tissue edema or swelling. Heavy calcification in the distal vertebral arteries and the intracranial carotid arteries. CT/CT head wo con* [id number] IMPRESSION: 1. No acute intracranial hemorrhage or edema. 2. Focal areas of decreased attenuation from chronic ischemic disease and prio r infarcts throughout the brain are stable. 3. Recently described possible early metastatic lesions described on the MRI o f 08/23/[address] apparent [address] CT due to their small size.
--- NOTE | 2019-08-30 16:00 | PC.NURSE ---
Patient to CT via stretcher.
[2019-08-30 16:27] LABS: Basophils % 0.5 %; Eosinophils # 0.7 10^3/uL (0.0-0.8); Eosinophils % 8.8 %; Hematocrit 46.1 % (42.0-52.0); Hemoglobin 15.5 g/dL (11.7-16.6); Lymphocytes # 1.2 10^3/uL (0.8-4.8); Lymphocytes % 15.8 %; Mean Corpuscular HGB Conc 33.6 g/dL (30.0-36.0); Mean Corpuscular Hemoglobin 30.3 pg (28.0-34.0); Mean Platelet Volume 11.1 fL (7.4-10.4); Monocytes # 0.5 10^3/uL (0.2-0.9); Monocytes % 7.2 %; Neutrophils # 5.1 10^3/uL (1.8-7.7); Neutrophils % 67.4 %; Nucleated Red Blood Cells % 0 %; Platelet Count 88 10^3/cmm (130-400); Red Blood Count 5.12 10^6/uL (4.1-5.3); Red Cell Distribution Width 12.9 % (12.1-15.1); White Blood Count 7.5 10^3/uL (4.0-10.0)
[2019-08-30 16:33] LABS: INR 1.43 (0.8-1.2); Partial Thromboplastin Time 33.2 SECONDS (23.9-36.7)
[2019-08-30 16:47] LABS: Alanine Aminotransferase 11 U/L (0-41); Albumin Level 4.3 g/dL (3.5-5.2); Alkaline Phosphatase 50 IU/L (40-130); Aspartate Amino Transferase 18 U/L (0-40); Blood Urea Nitrogen 20 mg/dL (8-23); Calcium 10.2 mg/dL (8.5-10.5); Carbon Dioxide 24 mmol/L (22-29); Chloride 103 mmol/L (98-107); Creatinine Clr Calc Pharmacy 59.2764; Globulin 2.4 g/dL (1.3-4.6); Glucose 166 mg/dL (65-115); Osmolality Calculated 292 mOsm/kg (285-295); Sodium 141 mmol/L (136-145); Total Bilirubin 1.1 mg/dL (0.15-1.2); Total Protein 6.7 g/dL (6.6-8.7)
[2019-08-30 17:12] LABS: Add Urine Microscopic? NO
[2019-08-30 17:31] LABS: Bilirubin Urine Neg (NEGATIVE); Blood Urine Neg (Negative); Glucose Urine UA 4+ (Normal); Ketones Urine Negative (Negative); Leukocyte Esterase Urine Negative (Negative); Nitrate Urine Negative (Negative); Protein Urine Neg (Negative); Urine Appearance Clear (CLEAR); Urine Color Yellow (Yellow); Urobilinogen Urine 1 mg/dL (Negative); pH Urine 5 (5-7)
[2019-08-30 18:02] VITALS: BP 126/80; PULSE 75; RESP 16; O2SAT 97
== END 2019-08-30 18:03 | disposition home or self-care (01) ==
PROVIDERS: Emergency Provider Family Medicine; Family Provider Nurse Practitioner Family; PCP Nurse Practitioner Family
DX: R42 Dizziness and giddiness (principal); Z79.01 Long term (current) use of anticoagulants; Z87.891 Personal history of nicotine dependence
CPT/HCPCS: 12345; 36415; 70450; 80053; 81003; 85025; 85610; 85730; 99281; 99284; A9270

== ENCOUNTER 2019-09-03 12:34 | Emergency (ER) | payer MEDICARE, SELFPAY ==
[2019-09-03 12:34] VITALS: RESP 17
[2019-09-03 12:38] VITALS: BP 152/101; PULSE 75; RESP 18; TEMP 36.6; O2SAT 94; BMI 30.7
--- NOTE | 2019-09-03 12:39 | ED_ITS ---
Entered by Clover Del Toro, acting as scribe for HPI - Neuro Symptoms/Deficit General: Chief Complaint: Neuro Symptoms/Deficit Stated Complaint: dizzy, slurred speech Time Seen by Provider: 09/03/19 12:48 Source: patient and family Mode of arrival: wheelchair Limitations: no limitations History of Present Illness: HPI Narrative: 79 yo Male presents to ED with com plaint of dizziness, weakness, and slurred speech. Pt's family states that the patient has had several strokes and his most recent stroke was in June. Pt is being treated for metastatic lung cancer and had a PET scan on . Pt's states that the patient has no been eating as much and has been having increased difficulty with his memory. Pt's family states that the patient's episode this morning started around 0800. Pt states that he does not feel well, felt dizzy, weak, and had slurred speech. Onset (ago): hour(s) Last Observed Normal: 08:00 Timing confirmed by: spouse and family member Location: speech History of same: Yes Quality: weak Relieving factors: none Exacerbating factors: none Context: gradual onset Associated symptoms: Reports other (dizziness) Treatments Prior to Arrival: none Review of Systems General: Reports: 10 or more systems reviewed and unremarkable except in HPI and below Const: Reports: fatigue Neuro: Reports: weakness in extremities, dizziness and slurred speech [facility] ED PFSH: Social History Smoking and tobacco status: former smoker NIH stroke score NIHSS: Level Of Consciousness - 1a: 0 Level Of Consciousness Questions - 1b: Both Correct Level Of Consciousness Commands - 1c: Both Correct Best Gaze - 2: Normal Visual Davis - 3: No Visual Loss Facial Palsy - 4: Normal Motor Arm Right - 5: No Drift Motor Arm Left - 5: No Drift Motor Leg Right - 6: Drift Motor Leg Left - 6: No Drift Limb Ataxia - 7: Absent Sensory - 8: Normal Best Language - 9: No Aphasia Dysarthia - 10: Normal Extinction And Inattention - 11: 0 Score: Total Score: 1 Physical Exam Const: COMMON NORMALS: no apparent distress, average body habitus, oriented x3, no limitations, healthy appearing, alert and well nourished HENMT: COMMON NORMALS: normocephalic, head/scalp atraumatic, hearing grossly normal bilaterally, external ears normal, EAC's normal, TM's normal bilaterally, external nose normal, nasal mucous membranes and turbinates normal, moist oral mucous membranes, oropharynx normal, dentition normal and gingiva normal HEAD & SCALP: normocephalic and atraumatic NOSE: external nose normal and nasal mucous membranes and turbinates normal EXTERNAL EAR: Yes external ears normal EXTERNAL AUDITORY CANAL: EAC's normal TYMPANIC MEMBRANE: TM's normal bilaterally Eye: COMMON NORMALS: PERRL, EOMs intact bilaterally, conjunctivae normal, no scleral icterus, no papilledema, normal visual davis by confrontation and fundi normal bilaterally CONJUNCTIVA: Yes conjunctivae normal PUPIL: Yes PERRL DIRECT OPHTHALMOSCOPY: Yes no papilledema and Yes fundi normal bilaterally Neck/C-Spine: COMMON NORMALS: full ROM, no lymphadenopathy, supple, no meningeal signs, no JVD, thyroid normal and no carotid bruits THYROID: thyroid normal Chest: COMMONS NORMALS: inspection of chest normal and palpation of chest normal Resp: COMMON NORMALS: normal respiratory effort, no retractions, no use of accessory muscles, clear to auscultation bilaterally and percussion normal AUSCULTATION: clear to auscultation bilaterally PERCUSSION: percussion normal Cardio: COMMON NORMALS: no JVD, regular rate, regular rhythm, S1 normal heart sound, S2 normal heart sound, no gallops, no clicks, no murmurs, no rub and peripheral pulses 2+ throughout RATE: regular rate RHYTHM: regular rhythm HEART SOUNDS: S1 normal and S2 normal PERIPHERAL PULSES: pulses 2+ throughout GI: COMMON NORMALS: normal to inspection, nondistended, normoactive bowel sounds, soft to palpation, non-tender, no hepatosplenomegaly, no masses and no bruits PALPATION: Yes soft and Yes no hepatosplenomegaly : COMMON NORMALS: Yes no CVA tenderness BLADDER/KIDNEY EXAM: Yes no CVA tenderness Back/Pelvis: COMMON NORMALS: no CVA tenderness, thoracic and lumbar spine normal to inspection, no thoracic nor lumbar tenderness, thoraco-lumbar ROM normal and straight leg raise negative bilaterally Extremity: COMMON NORMALS: normal to inspection, full ROM, normal capillary refill, no joint enlargement, no clubbing, cyanosis or edema, no calf tenderness and no pedal edema Neuro: COMMON NORMALS: oriented x3 SENSORIUM/ORIENTATION: Yes alert MENINGEAL SIGNS: Yes no meningeal signs Skin: COMMON NORMALS: no rashes or lesions noted, no wounds, skin turgor normal, no jaundice, no petechiae and no mottling GENERAL SKIN EXAM: no rashes or lesions noted and turgor normal Course Vital Signs: Vital signs: Vital Signs Temperature 97.9 F 09/03/19 12:38 Pulse Rate 71 09/03/19 14:01 Respiratory Rate 18 09/03/19 14:01 Blood Pressure 128/63 09/03/19 14:01 Pulse Oximetry 98 09/03/19 14:01 MDM - Neuro Symptoms/Deficit Lab Data: Labs: Lab Results 09/03/19 09/03/19 09/03/19 Range/Units 12:58 12:58 12:58 WBC 6.8 (4.0-10.0) 10^3/ uL RBC 5.51 H (4.1-5.3) 10^6/u L Hgb 17.0 H (11.7-16.6) g/dL Hct 48.5 (42.0-52.0) % MCV 88.0 (80-94) fL MCH 30.9 (28.0-34.0) pg MCHC 35.1 (30.0-36.0) g/dL RDW 12.7 (12.1-15.1) % Plt Count 127 L (130-400) 10^3/c mm MPV 10.7 H (7.4-10.4) fL Neut % (Auto) 62.8 % Lymph % (Auto) 18.6 % [place] % (Auto) 9.9 % Eos % (Auto) 7.4 % Baso % (Auto) 1.0 % Neut # (Auto) 4.3 (1.8-7.7) 10^3/u L Lymph # (Auto) 1.3 (0.8-4.8) 10^3/u L [place] # (Auto) 0.7 (0.2-0.9) 10^3/u L Eos # (Auto) 0.5 (0.0-0.8) 10^3/u L Baso # (Auto) 0.1 (0.0-0.1) 10^3/u L Nucleated RBC % (a uto) 0 % Nucleated RBCs # 0.0 /100WBC PT 13.60 H (10.5-13.3) SECO NDS INR 1.01 (0.8-1.2) APTT 31.3 (23.9-36.7) SECO NDS Sodium 139 (136-145) mmol/L Potassium 4.2 (3.5-5.1) mmol/L Chloride 100 (98-107) mmol/L Carbon Dioxide 25 (22-29) mmol/L Anion Gap 18.2 (5-19) BUN 22 (8-23) mg/dL Creatinine 0.9 (0.7-1.2) mg/dL Glucose 120 H (65-115) mg/dL Calculated Osmolal ity 286 (285-295) mOsm/k g Calcium 10.7 H (8.5-10.5) mg/dL Total Bilirubin 1.0 (0.15-1.2) mg/dL AST 19 (0-40) U/L ALT 11 (0-41) U/L Alkaline Phosphata se 52 (40-130) IU/L Total Protein 7.3 (6.6-8.7) g/dL Albumin 4.5 (3.5-5.2) g/dL Globulin 2.8 (1.3-4.6) g/dL Urine Color (Yellow) Urine Appearance (CLEAR) Urine pH (5-7) Ur Specific Gravit y (1.005-1.030) Urine Protein (Negative) Urine Glucose (UA) (Normal) Urine Ketones (Negative) Urine Blood (Negative) Urine Nitrate (Negative) Urine Bilirubin (NEGATIVE) Urine Urobilinogen (Negative) mg/dL Ur Leukocyte Ritika ase (Negative) Urine Opiates Scre en (Negative) ng/mL Ur Barbiturates Sc reen (Negative) ng/mL Ur Phencyclidine S crn (Negative) ng/mL Ur Amphetamines Sc reen (Negative) ng/mL U Benzodiazepines Scrn (Negative) ng/mL Urine Cocaine Scre en (Negative) ng/mL U Marijuana (THC) Screen (Negative) ng/mL 09/03/19 09/03/19 Range/Units 13:09 13:09 WBC (4.0-10.0) 10^3/ uL RBC (4.1-5.3) 10^6/u L Hgb (11.7-16.6) g/dL Hct (42.0-52.0) % MCV (80-94) fL MCH (28.0-34.0) pg MCHC (30.0-36.0) g/dL RDW (12.1-15.1) % Plt Count (130-400) 10^3/c mm MPV (7.4-10.4) fL Neut % (Auto) % Lymph % (Auto) % [place] % (Auto) % Eos % (Auto) % Baso % (Auto) % Neut # (Auto) (1.8-7.7) 10^3/u L Lymph # (Auto) (0.8-4.8) 10^3/u L [place] # (Auto) (0.2-0.9) 10^3/u L Eos # (Auto) (0.0-0.8) 10^3/u L Baso # (Auto) (0.0-0.1) 10^3/u L Nucleated RBC % (a uto) % Nucleated RBCs # /100WBC PT (10.5-13.3) SECO NDS INR (0.8-1.2) APTT (23.9-36.7) SECO NDS Sodium (136-145) mmol/L Potassium (3.5-5.1) mmol/L Chloride (98-107) mmol/L Carbon Dioxide (22-29) mmol/L Anion Gap (5-19) BUN (8-23) mg/dL Creatinine (0.7-1.2) mg/dL Glucose (65-115) mg/dL Calculated Osmolal ity (285-295) mOsm/k g Calcium (8.5-10.5) mg/dL Total Bilirubin (0.15-1.2) mg/dL AST (0-40) U/L ALT (0-41) U/L Alkaline Phosphata se (40-130) IU/L Total Protein (6.6-8.7) g/dL Albumin (3.5-5.2) g/dL Globulin (1.3-4.6) g/dL Urine Color Yellow (Yellow) Urine Appearance Clear (CLEAR) Urine pH 7 (5-7) Ur Specific Gravit y 1.005 (1.005-1.030) Urine Protein Neg (Negative) Urine Glucose (UA) 4+ H (Normal) Urine Ketones Negative (Negative) Urine Blood Neg (Negative) Urine Nitrate Negative (Negative) Urine Bilirubin Neg (NEGATIVE) Urine Urobilinogen Norm (Negative) mg/dL Ur Leukocyte Ritika ase Negative (Negative) Urine Opiates Scre en Positive H (Negative) ng/mL Ur Barbiturates Sc reen Negative (Negative) ng/mL Ur Phencyclidine S crn Negative (Negative) ng/mL Ur Amphetamines Sc reen Negative (Negative) ng/mL U Benzodiazepines Scrn Negative (Negative) ng/mL Urine Cocaine Scre en Negative (Negative) ng/mL U Marijuana (THC) Screen Negative (Negative) ng/mL Discharge Plan Discharge Patient Disposition: Home, Self-Care Clinical Impression: Brain TIA, 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 Lung cancer Qualifiers: Laterality: unspecified laterality Lung location: unspecified part of lung Qualified Code(s): C34.90 - Malignant neoplasm of unspecified part of unspecified bronchus or lung Condition: Stable Prescriptions: No Action meclizine 25 mg tablet 25 mg PO QID PRN (Reason: dizziness) Qty: 20 RF: 0 carvedilol 25 mg Tablet 25 mg PO BID RF: 0 cetirizine [Zyrtec] 10 mg Tablet 10 mg PO DAILY PRN (Reason: Allergy Symptoms) RF: 0 clopidogrel [Plavix] 75 mg Tablet 75 mg PO DAILY RF: 0 amlodipine [Norvasc] 5 mg Tablet 2.5 mg PO DAILY RF: 0 famotidine 20 mg Tablet 20 mg PO BID PRN (Reason: unknown) RF: 0 tamsulosin [Flomax] 0.4 mg Capsule 0.4 mg PO DAILY RF: 0 gabapentin 300 mg Capsule 300 mg PO DAILY RF: 0 allopurinol 300 mg Tablet 300 mg PO DAILY RF: 0 metformin 500 mg Tablet Extended Release 24 Hr 1,000 mg PO BID RF: 0 vitamin [id number] acid 0.5-1 mg Tablet 1 tab PO DAILY RF: 0 cholecalciferol (vitamin D3) [Vitamin D3] 2,000 unit Tablet 2,000 unit PO DAILY RF: 0 omega 2-mqs-hcn-fish oil [Fish Oil] 1,000 mg (120 mg-180 mg) Capsule 1 cap PO DAILY RF: 0 Jardiance 25 mg Tablet 12.5 mg PO DAILY RF: 0 lovastatin 40 mg Tablet 40 mg PO BID RF: 0 fluticasone propionate [Flonase Allergy Relief] 50 mcg/actuation [place],Suspension 1 - 2 spray INTRANASAL DAILY PRN (Reason: unknown) RF: 0 guaifenesin [Mucinex] 600 mg Tablet Extended Release 12hr 600 mg PO PRN RF: 0 Spiriva Respimat 1.25 mcg/actuation Mist 2 puff INHALATION DAILY PRN (Reason: unknown) RF: 0 Ozempic 1 mg/dose (2 mg/1.5 mL) Pen Injector See Rx Instructions .ROUTE .COMPLEX RF: 0 hydrocodone-acetaminophen [[place]] 5-325 mg Tablet 1 - 2 tab PO Q4H PRN (Reason: Pain) RF: 0 valsartan 320 mg Tablet See Rx Instructions .ROUTE .COMPLEX RF: 0 enoxaparin [Lovenox] 80 mg/0.8 mL Syringe 80 mg SUBCUT Q12H RF: 0 docusate sodium 100 mg capsule 100 mg PO DAILY PRN (Reason: Constipation) RF: 0 Discharge Orders: Discharge Order (Routine); Ordered 09/03/19 Ordered By: Devendra Franz Referrals: Aislinn Beebe NP [Primary Care Provider] - Coding Level of Care Code ED Admissions Clerk for Chg Fwd Exam Comprehensive The documentation recorded by the Katey seals Carmen, accurately reflects the service I personally performed and the decisions made by Maria M yanes Donald P, DO Sep 03, 2019 12:34
--- NOTE | 2019-09-03 12:49 | CTR_ITS ---
PROCEDURE INFORMATION: Exam: CT Head Without Contrast Exam date and time: 09/03/2019 1:22 PM Age: 79 years old Clinical indication: Altered mental status/memory loss; Additional info: Symptoms of acute stroke TECHNIQUE: Imaging protocol: Computed tomography of the head without contrast. Total DLP: 870.71 mGy-cm Radiation optimization: All CT scans at this facility use at least one of these dose optimization techniques: automated exposure control; mA and/or kV adjustment per patient size (includes targeted exams where dose is matched to clinical indication); or iterative reconstruction. Other technique: STROKE PROTOCOL was implemented. COMPARISON: CT head wo con* [id number] 08/30/2019 MRI head 08/23/2019, no report FINDINGS: Brain: No hemorrhage. Stable minimal chronic ischemic change, small old left frontal periventricular infarction. Nonspecific hypodense lesion adjacent to the posterior horn of the right lateral ventricle. No mass effect. Ventricles: Normal. No ventriculomegaly. Bones/joints: Unremarkable. No acute fracture. Sinuses: No acute sinusitis. Mastoid air cells: Unremarkable. Soft tissues: Unremarkable. CT/CT head wo con* [id number] IMPRESSION: No acute focal findings or interval change. ASSESSMENT: ASPECTS ([place] Stroke Program Early CT Score) is 10. Radiation Dose CTDIVOL = (mGy): DLP = 870.71 (mGy-cm)
--- NOTE | 2019-09-03 12:49 | XRR_ITS ---
PROCEDURE INFORMATION: Exam: XR Chest, 1 View Exam date and time: 09/03/2019 1:34 PM Age: 79 years old Clinical indication: Other: Weakness TECHNIQUE: Imaging protocol: XR of the chest Views: 1 view. COMPARISON: CR XR chest 1V portable [id number] 07/04/2019 12:15 AM FINDINGS: Lungs: No CHF. No consolidation. Stable right hemidiaphragm elevation. Pleural space: Unremarkable. No pleural effusion. No pneumothorax. Heart/Mediastinum: Unremarkable. No cardiomegaly. CABG. Bones/joints: No acute findings. Sternotomy. XR/XR chest 1V portable [id number] IMPRESSION: No acute findings.
--- NOTE | 2019-09-03 12:49 | ECG_ITS ---
Measurements Intervals [place] Rate: 73 P: 48 TX: 181 QRS: 44 QRSD: 87 T: 51 QT: 368 QTc: 408 SINUS RHYTHM POSSIBLE ANTERIOR MYOCARDIAL INFARCTION , OF INDETERMINATE AGE [30 ms Q WAVE IN V3/V4, OR R < 0.2 mV IN V4] Compared to ECG 08/03/2019 14:10:24 Sinus arrhythmia no longer present Myocardial infarct finding still present Electronically Signed On 09-03-2019 13:43:34 CDT by Eyal Jeffries M.D. [email or web address]
[2019-09-03 13:09] LABS: Basophils # 0.1 10^3/uL (0.0-0.1); Eosinophils # 0.5 10^3/uL (0.0-0.8); Eosinophils % 7.4 %; Hematocrit 48.5 % (42.0-52.0); Lymphocytes # 1.3 10^3/uL (0.8-4.8); Lymphocytes % 18.6 %; Mean Corpuscular HGB Conc 35.1 g/dL (30.0-36.0); Mean Corpuscular Hemoglobin 30.9 pg (28.0-34.0); Mean Platelet Volume 10.7 fL (7.4-10.4); Monocytes # 0.7 10^3/uL (0.2-0.9); Monocytes % 9.9 %; Neutrophils # 4.3 10^3/uL (1.8-7.7); Neutrophils % 62.8 %; Nucleated Red Blood Cells % 0 %; Platelet Count 127 10^3/cmm (130-400); Red Blood Count 5.51 10^6/uL (4.1-5.3); Red Cell Distribution Width 12.7 % (12.1-15.1); White Blood Count 6.8 10^3/uL (4.0-10.0)
[2019-09-03 13:16] LABS: INR 1.01 (0.8-1.2)
[2019-09-03 13:17] LABS: Partial Thromboplastin Time 31.3 SECONDS (23.9-36.7)
[2019-09-03 13:20] LABS: Alanine Aminotransferase 11 U/L (0-41); Albumin Level 4.5 g/dL (3.5-5.2); Alkaline Phosphatase 52 IU/L (40-130); Anion Gap 18.2 (5-19); Aspartate Amino Transferase 19 U/L (0-40); Blood Urea Nitrogen 22 mg/dL (8-23); Calcium 10.7 mg/dL (8.5-10.5); Carbon Dioxide 25 mmol/L (22-29); Chloride 100 mmol/L (98-107); Globulin 2.8 g/dL (1.3-4.6); Glucose 120 mg/dL (65-115); Osmolality Calculated 286 mOsm/kg (285-295); Potassium 4.2 mmol/L (3.5-5.1); Sodium 139 mmol/L (136-145); Total Protein 7.3 g/dL (6.6-8.7)
[2019-09-03 13:31] LABS: Add Urine Microscopic? NO
[2019-09-03 13:42] LABS: Amphetamines Screen Urine Negative (Negative); Barbiturates Screen Urine Negative (Negative); Benzodiazepines Screen Urine Negative (Negative); Cocaine Screen Urine Negative (Negative); Opiate Screen Urine Positive (Negative); PCP Screen Urine Negative (Negative); THC Screen Urine Negative (Negative)
[2019-09-03 13:46] LABS: Bilirubin Urine Neg (NEGATIVE); Blood Urine Neg (Negative); Glucose Urine UA 4+ (Normal); Ketones Urine Negative (Negative); Nitrate Urine Negative (Negative); Protein Urine Neg (Negative); Specific Gravity, Urine 1.005 (1.005-1.030); Urine Appearance Clear (CLEAR); Urine Color Yellow (Yellow); pH Urine 7 (5-7)
[2019-09-03 13:47] LABS: Leukocyte Esterase Urine Negative (Negative); Urobilinogen Urine Norm (Negative)
[2019-09-03 14:01] VITALS: BP 128/63; PULSE 71; RESP 18; O2SAT 98
[2019-09-03 14:44] VITALS: BP 128/63; PULSE 73; RESP 18; O2SAT 95
== END 2019-09-03 14:44 | disposition home or self-care (01) ==
PROVIDERS: Emergency Provider Family Medicine; Family Provider Nurse Practitioner Family; PCP Nurse Practitioner Family
DX: G45.9 Transient cerebral ischemic attack, unspecified (principal); C34.90 Malignant neoplasm of unspecified part of unspecified bronchus or lung; R29.701 NIHSS score 1; Z87.891 Personal history of nicotine dependence
CPT/HCPCS: 12345; 36415; 70450; 71045; 80053; 80306; 81003; 85025; 85610; 85730; 93005; 99283; 99284; A9270

== ENCOUNTER 2019-09-16 08:45 | Outpatient (RCR) | payer MEDICARE, SELFPAY ==
--- NOTE | 2019-09-09 | CT_ITS ---
Radiation Therapy Planning CT images; total exam DLP: 480.76 mGy-cm MTDD
--- NOTE | 2019-09-14 15:27 | ONCRAD TMN_ITS ---
Radiation Oncology Weekly Treatment Management Patient: Lynnette Sevilla MR#: [id number] : 1940 Age: 79 Sex: Male Dictated by: Dr. Van Gomez Date of Service: 09/14/2019 Referring Physician(s) : Dr. 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 ID: RT Hip, Energy: 15X, Dose/Fx (cGy): 300, #Fx: , Dose Correction (cGy): 0, Total Dose (cGy): 300, Start Date: 09/14/2019, Elapsed Days: 0 Current Complaints/Interval History: Mr. Sevilla received his first treatment to the right hip today. He asked if we can see the metastasis on the image guidance films. He was informed that we cannot. He asked how we would know if there is improvement. I told him most likely he will notice improvement in his pain. He once again ask why we were treating the right hip when the left hip hurts more. I told him we are trying to control this metastasis so he will not have to have surgery on the right. I think that most or all of his pain on the left is from his previous surgery. His asked about the MRI of the brain. In my note last week I indicated we would get that ordered. I will need to check on that because they have not heard anything about it in terms of scheduling. Continue treatment as planned. Current Medications: Acetaminophen Extra Strength, allopurinol, amLODIPine Besylate, atorvastatin Calcium, b-12, bisacodyl, carvedilol, cetirizine HCl, cholecalciferol, cVS Mucus Extended Release, docusate Sodium, dulcolax Milk of Magnesia, eliquis, enoxaparin Sodium, famotidine, fish Oil, flonase, gabapentin, gabapentin, hYDROcodone-Acetaminophen, jardiance, lovastatin, meclizine HCl, metFORMIN HCl, plavix, spiriva Respimat, tamsulosin HCl. Allergies: PENICILLIN AND ALEVE. Vital Signs: Physical Exam: Appears stable, no skin erythema or desquamation. Performance Status: 2 - Ambulatory/capable of all self-care, unable to perform any work activities. Up and about more than 50% of waking hours. (ECOG) Lab: None pending in Radiation Oncology. Imaging: No new diagnostic imaging was performed since the last weekly treatment visit. All radiation therapy related imaging (including but not limited to kV, MV, and CBCT generated images) was reviewed. Appropriate changes, if any, were made to assure accurate target localization. Impression/Plan: Tolerating treatment well with expected side effects. Continue treatment as planned. Schedule MRI of the brain if not already done. CPT: 87280 Signed by: Dr. Van Gomez>09/14/2019 3:26:22 PM <<Signature on File>>
--- NOTE | 2019-09-16 | MR_ITS ---
WS: [id number] MRI BRAIN WITH AND WITHOUT CONTRAST HISTORY: MEMORY LOSS, CONFUSION COMPARISON: 08/23/2019 TECHNIQUE: Multiplanar imaging performed through the brain with Prohance 17 ml's IV. Since the prior examination numerous small acute lacunar type infarcts are noted bilaterally. Diffusi on-weighted abnormalities at the parra-white matter junction involving the frontal lobes, LEFT tempora l, parietal, occipital and cerebellar lobes. Previously described gyral enhancement in the RIGHT nuha ocampal formation has slightly improved suggesting this may been an infarct with gyral enhancement. T here are no increasing areas of enhancement. No hemorrhage. Extensive bilateral chronic microvascular ischemic changes. LEFT frontal lobe venous angioma. Paranasal sinuses: Well aerated with no significant disease. Mastoid air cells: Normal. Calvarium and scalp: Normal. Notified Shorty Chadwick MD at 09/16/2019 10:36 AM. Message LEFT for Dr. Chadwick to review report. MR/MR head wo/w con [id number] IMPRESSION: 1. Numerous, bilateral multi lobar acute lacunar infarcts since 08/23/2019. Cons ider evaluation of the cardiac valves to evaluate for embolic source of infarct s. 2. Previously described areas of enhancement were probably related to ischemia and not metastatic disease. No convincing evidence for metastatic cyst disease at this time.
== END 2019-09-17 12:00 | disposition home or self-care (01) ==
LOC: ONCMED 08:45
PROVIDERS: Family Provider Nurse Practitioner Family; PCP Nurse Practitioner Family; Visit Provider Internal Medicine Medical Oncology
DX: Z51.0 Encounter for antineoplastic radiation therapy (principal); C79.51 Secondary malignant neoplasm of bone; C34.11 Malignant neoplasm of upper lobe, right bronchus or lung; R41.3 Other amnesia; R41.0 Disorientation, unspecified; Z86.73 Personal history of transient ischemic attack (TIA), and cerebral infarction without residual deficits; E83.110 Hereditary hemochromatosis; Z86.718 Personal history of other venous thrombosis and embolism; Z79.02 Long term (current) use of antithrombotics/antiplatelets
CPT/HCPCS: 70553; 77280; 77387; 77412; A9579

== ENCOUNTER 2019-09-17 12:28 | Inpatient (IN) | payer MEDICARE, SELFPAY ==
[2019-09-17 12:43] VITALS: BP 139/73; PULSE 69; RESP 18; TEMP 36.8; O2SAT 92; BMI 27.8
--- NOTE | 2019-09-17 12:48 | CTR_ITS ---
PROCEDURE INFORMATION: Exam: CT Head Without Contrast Exam date and time: 09/17/2019 1:01 PM Age: 79 years old Clinical indication: Patient HX: HX of lung CA w mets C/O dizziness today; Additional info: Dizzy TECHNIQUE: Imaging protocol: Computed tomography of the head without contrast. Total DLP: 860.2 mGy-cm Radiation optimization: All CT scans at this facility use at least one of these dose optimization techniques: automated exposure control; mA and/or kV adjustment per patient size (includes targeted exams where dose is matched to clinical indication); or iterative reconstruction. COMPARISON: CT head wo con* [id number] 09/03/2019 1:21 PM FINDINGS: Brain: No hemorrhage. No edema or mass effect. Small old left periventricular infarct. Ventricles: Normal. No ventriculomegaly. Bones/joints: Unremarkable. No acute fracture. Sinuses: No acute sinusitis. Mastoid air cells: Unremarkable. Soft tissues: Unremarkable. CT/CT head wo con* [id number] IMPRESSION: No acute intracranial abnormality. Radiation Dose CTDIVOL = (mGy): DLP = 860.2 (mGy-cm)
--- NOTE | 2019-09-17 12:49 | ECG_ITS ---
Measurements Intervals Bryant Rate: 67 P: 64 LA: 173 QRS: 64 QRSD: 99 T: 74 QT: 371 QTc: 392 SINUS RHYTHM POSSIBLE ANTERIOR MYOCARDIAL INFARCTION , OF INDETERMINATE AGE [30 ms Q WAVE IN V3/V4, OR R < 0.2 mV IN V4] Compared to ECG 09/03/2019 13:06:20 No significant changes Electronically Signed On 09-17-2019 17:08:09 CDT by Elena Garcia M.D. [email or web address]
--- NOTE | 2019-09-17 12:51 | W.ED.DIZZY ---
HPI - Dizziness General: Chief Complaint: Dizziness Stated Complaint: dizzy Time Seen by Provider: 09/17/19 12:43 Source: patient Mode of arrival: ambulatory Limitations: no limitations History of Present Illness: HPI Narrative: 79-year-old male with a history of cancer who is on radiation. Patient states that he has been having dizziness off and on for the last month or 2. Patient states that he had worsening dizziness and vertigo today. Patient states is most worse when he stands and walks. States it is improved when he lays down. He has no focal deficits. Denies any one-sided weakness. MD elicited complaint: dizziness Onset (ago): hour(s) Timing: gradual onset Severity: moderate Description: sense of movement Context: change in body position History of similar symptoms: Yes Exacerbating factors: position/lying down Associated symptoms: Denies chest pain, chills, nausea or vomiting Review of Systems Const: Denies: fever, chills, body aches or change in appetite Eyes: Denies: blurry vision or eye discomfort ENMT: Denies: throat pain or dental pain Card: Denies: chest pain Resp: Denies: shortness of breath GI: Denies: abdominal pain, nausea, vomiting or diarrhea : Denies: painful urination Musc: Denies: neck pain or back pain Skin/Breast: Denies: rash Neuro: Reports: dizziness Psych: Denies: depression Eren/Lymph: Denies: easy bruising All/Imm: Denies: hives PFS ED PFSH: Medical History (Updated 09/19/19 @ 13:55 by Angela Tierney MD) Accelerated hypertension Allergic rhinitis BPH (benign prostatic hyperplasia) Carotid artery disease 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 Chronic anticoagulation COPD (chronic obstructive pulmonary disease) Coronary artery disease DJD (degenerative joint disease) DVT (deep venous thrombosis) GERD (gastroesophageal reflux disease) Gout Hemochromatosis Hyperlipidemia Hypertension Lung cancer 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 Obstructive sleep apnea Peripheral neuropathy Type 2 diabetes mellitus Surgical History (Updated 09/17/19 @ 14:33 by Cy Krishnan MD) History of left hip hemiarthroplasty Social History (Updated 09/17/19 @ 15:34 by Cy Krishnan MD) Smoking and tobacco status: former smoker Physical Exam Const: COMMON NORMALS: no apparent distress, oriented x3, healthy appearing and alert HENMT: COMMON NORMALS: normocephalic and head/scalp atraumatic HEAD & SCALP: normocephalic and atraumatic Eye: COMMON NORMALS: PERRL and EOMs intact bilaterally PUPIL: Yes PERRL Neck/C-Spine: COMMON NORMALS: full ROM and supple Chest: COMMONS NORMALS: inspection of chest normal and palpation of chest normal Resp: COMMON NORMALS: normal respiratory effort, no retractions, no use of accessory muscles and clear to auscultation bilaterally AUSCULTATION: clear to auscultation bilaterally Cardio: COMMON NORMALS: regular rate, regular rhythm and no murmurs RATE: regular rate RHYTHM: regular rhythm GI: COMMON NORMALS: normal to inspection, nondistended, normoactive bowel sounds, soft to palpation, non-tender and no masses PALPATION: Yes soft Extremity: COMMON NORMALS: normal to inspection and full ROM Neuro: COMMON NORMALS: oriented x3, CN's II-XII intact bilaterally, moves all extremities, no focal motor deficits and no sensory deficits noted SENSORIUM/ORIENTATION: Yes alert SPEECH: speech normal GAIT: Yes normal gait MOTOR EXAM: strength 5/5 throughout Psych: COMMON NORMALS: mental status grossly normal, thought process normal and cooperative THOUGHT PROCESS: normal thought process Skin: COMMON NORMALS: no rashes or lesions noted and no wounds GENERAL SKIN EXAM: no rashes or lesions noted Course Vital Signs: Vital signs: Vital Signs Temperature 97.9 F 09/19/19 12:00 Pulse Rate 64 09/19/19 12:00 Respiratory Rate 18 09/19/19 12:00 Blood Pressure 139/82 09/19/19 12:00 Pulse Oximetry 93 09/19/19 11:11 MDM - Dizziness MDM Narrative: Medical decision making narrative: pt presents here with dizziness along with weakness. pt mri showed multiple small strokes. I spoke to dr. krishnan and will admit for observation. Lab Data: Labs: Lab Results 09/17/19 09/17/19 09/17/19 Range/Units 13:00 13:00 13:00 WBC 5.9 (4.0-10.0) 10^3/ uL RBC 5.37 H (4.1-5.3) 10^6/u L Hgb 16.4 (11.7-16.6) g/dL Hct 48.3 (42.0-52.0) % MCV 89.9 (80-94) fL MCH 30.5 (28.0-34.0) pg MCHC 34.0 (30.0-36.0) g/dL RDW 12.7 (12.1-15.1) % Plt Count 166 (130-400) 10^3/c mm MPV 9.8 (7.4-10.4) fL Neut % (Auto) 63.8 % Lymph % (Auto) 19.3 % [place]uther[place] % (Auto) 8.6 % Eos % (Auto) 6.9 % Baso % (Auto) 1.2 % Neut # (Auto) 3.8 (1.8-7.7) 10^3/u L Lymph # (Auto) 1.1 (0.8-4.8) 10^3/u L [place] # (Auto) 0.5 (0.2-0.9) 10^3/u L Eos # (Auto) 0.4 (0.0-0.8) 10^3/u L Baso # (Auto) 0.1 (0.0-0.1) 10^3/u L Nucleated RBC % (a uto) 0 % Nucleated RBCs # 0.0 /100WBC PT 13.10 (10.5-13.3) SECO NDS INR 0.96 (0.8-1.2) Sodium 138 (136-145) mmol/L Potassium 4.5 (3.5-5.1) mmol/L Chloride 98 (98-107) mmol/L Carbon Dioxide 26 (22-29) mmol/L Anion Gap 18.5 (5-19) BUN 17 (8-23) mg/dL Creatinine 1.0 (0.7-1.2) mg/dL Glucose 121 H (65-115) mg/dL Calculated Osmolal ity 284 L (285-295) mOsm/k g Calcium 10.3 (8.5-10.5) mg/dL Total Bilirubin 0.8 (0.15-1.2) mg/dL AST 18 (0-40) U/L ALT 12 (0-41) U/L Alkaline Phosphata se 47 (40-130) IU/L Total Protein 6.9 (6.6-8.7) g/dL Albumin 4.5 (3.5-5.2) g/dL Globulin 2.4 (1.3-4.6) g/dL TSH (0.27-4.20) uIU/ mL Urine Color (Yellow) Urine Appearance (CLEAR) Urine pH (5-7) Ur Specific Gravit y (1.005-1.030) Urine Protein (Negative) Urine Glucose (UA) (Normal) Urine Ketones (Negative) Urine Blood (Negative) Urine Nitrate (Negative) Urine Bilirubin (NEGATIVE) Urine Urobilinogen (Negative) mg/dL Ur Leukocyte Ritika ase (Negative) 09/17/19 09/17/19 Range/Units 13:00 14:47 WBC (4.0-10.0) 10^3/ uL RBC (4.1-5.3) 10^6/u L Hgb (11.7-16.6) g/dL Hct (42.0-52.0) % MCV (80-94) fL MCH (28.0-34.0) pg MCHC (30.0-36.0) g/dL RDW (12.1-15.1) % Plt Count (130-400) 10^3/c mm MPV (7.4-10.4) fL Neut % (Auto) % Lymph % (Auto) % [place]utherford % (Auto) % Eos % (Auto) % Baso % (Auto) % Neut # (Auto) (1.8-7.7) 10^3/u L Lymph # (Auto) (0.8-4.8) 10^3/u L [place] # (Auto) (0.2-0.9) 10^3/u L Eos # (Auto) (0.0-0.8) 10^3/u L Baso # (Auto) (0.0-0.1) 10^3/u L Nucleated RBC % (a uto) % Nucleated RBCs # /100WBC PT (10.5-13.3) SECO NDS INR (0.8-1.2) Sodium (136-145) mmol/L Potassium (3.5-5.1) mmol/L Chloride (98-107) mmol/L Carbon Dioxide (22-29) mmol/L Anion Gap (5-19) BUN (8-23) mg/dL Creatinine (0.7-1.2) mg/dL Glucose (65-115) mg/dL Calculated Osmolal ity (285-295) mOsm/k g Calcium (8.5-10.5) mg/dL Total Bilirubin (0.15-1.2) mg/dL AST (0-40) U/L ALT (0-41) U/L Alkaline Phosphata se (40-130) IU/L Total Protein (6.6-8.7) g/dL Albumin (3.5-5.2) g/dL Globulin (1.3-4.6) g/dL TSH 1.92 (0.27-4.20) uIU/ mL Urine Color Straw (Yellow) Urine Appearance Clear (CLEAR) Urine pH 7.0 (5-7) Ur Specific Gravit y 1.005 (1.005-1.030) Urine Protein Neg (Negative) Urine Glucose (UA) 4+ H (Normal) Urine Ketones Negative (Negative) Urine Blood Neg (Negative) Urine Nitrate Negative (Negative) Urine Bilirubin Neg (NEGATIVE) Urine Urobilinogen Norm (Negative) mg/dL Ur Leukocyte Ritika ase Negative (Negative) Imaging Data^: CT Head: Radiologist's impression: [place] [address] CT Scan Report Signed Patient: Lynnette Sevilla Unit #: [id number] : 1940 Age/Sex: 79 / M ADM Date: 09/17/19 Loc: ER Room/Bed: Attending Dr: Ordering Provider/Ordering MD: Angela Tierney MD Date of Service: 09/17/19 Procedure(s): CT head wo con* [id number] Accession Number(s): [id number] Report Number: [id number] PROCEDURE INFORMATION: Exam: CT Head Without Contrast Exam date and time: 09/17/2019 1:01 PM Age: 79 years old Clinical indication: Patient HX: HX of lung CA w mets C/O dizziness today; Additional info: Dizzy TECHNIQUE: Imaging protocol: Computed tomography of the head without contrast. Total DLP: 860.2 mGy-cm Radiation optimization: All CT scans at this facility use at least one of these dose optimization techniques: automated exposure control; mA and/or kV adjustment per patient size (includes targeted exams where dose is matched to clinical indication); or iterative reconstruction. COMPARISON: CT head wo con* [id number] 09/03/2019 1:21 PM FINDINGS: Brain: No hemorrhage. No edema or mass effect. Small old left periventricular infarct. Ventricles: Normal. No ventriculomegaly. Bones/joints: Unremarkable. No acute fracture. Sinuses: No acute sinusitis. Mastoid air cells: Unremarkable. Soft tissues: Unremarkable. CT/CT head wo con* [id number] IMPRESSION: No acute intracranial abnormality. 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
[2019-09-17 13:12] LABS: Basophils # 0.1 10^3/uL (0.0-0.1); Basophils % 1.2 %; Eosinophils # 0.4 10^3/uL (0.0-0.8); Eosinophils % 6.9 %; Hematocrit 48.3 % (42.0-52.0); Hemoglobin 16.4 g/dL (11.7-16.6); Lymphocytes # 1.1 10^3/uL (0.8-4.8); Lymphocytes % 19.3 %; Mean Corpuscular Hemoglobin 30.5 pg (28.0-34.0); Mean Corpuscular Volume 89.9 fL (80-94); Mean Platelet Volume 9.8 fL (7.4-10.4); Monocytes # 0.5 10^3/uL (0.2-0.9); Monocytes % 8.6 %; Neutrophils # 3.8 10^3/uL (1.8-7.7); Neutrophils % 63.8 %; Nucleated Red Blood Cells % 0 %; Platelet Count 166 10^3/cmm (130-400); Red Blood Count 5.37 10^6/uL (4.1-5.3); Red Cell Distribution Width 12.7 % (12.1-15.1); White Blood Count 5.9 10^3/uL (4.0-10.0)
[2019-09-17] MEDS: sodium chloride 0.9% 1,000 ML 999 ML IV (13:13)
[2019-09-17] MEDS: meclizine 25 mg tablet 50 MG PO (13:13)
[2019-09-17 13:30] LABS: Alanine Aminotransferase 12 U/L (0-41); Albumin Level 4.5 g/dL (3.5-5.2); Alkaline Phosphatase 47 IU/L (40-130); Anion Gap 18.5 (5-19); Aspartate Amino Transferase 18 U/L (0-40); Blood Urea Nitrogen 17 mg/dL (8-23); Calcium 10.3 mg/dL (8.5-10.5); Carbon Dioxide 26 mmol/L (22-29); Chloride 98 mmol/L (98-107); Globulin 2.4 g/dL (1.3-4.6); Glucose 121 mg/dL (65-115); Osmolality Calculated 284 mOsm/kg (285-295); Potassium 4.5 mmol/L (3.5-5.1); Sodium 138 mmol/L (136-145); Total Bilirubin 0.8 mg/dL (0.15-1.2); Total Protein 6.9 g/dL (6.6-8.7)
--- NOTE | 2019-09-17 13:47 | USCV_ITS ---
Lynnette Sevilla Age: 79 Gender: M : 1940 Exam Date: 09/17/2019 14:15 Ordering Phys: Angela Tierney MD Technologist: Judie Nicole Exam Location: [facility] – [place] Indication: CVA BP: 139 / 73 HR: 69 Rhythm: Sinus Technical Quality: Technically difficult study MEASUREMENTS (Male / Female) Normal Values 2D ECHO LV Diastolic Diameter PLAX 5.0 cm 4.2 - 5.9 / 3.9 - 5.3 cm LV Systolic Diameter PLAX 3.1 cm LV Chamber Size 3.7 cm IVS Diastolic Thickness 1.2 cm 0.6 - 1.0 / 0.6 - 0.9 cm IVS Systolic Thickness 1.5 cm LVPW Diastolic Thickness 1.2 cm 0.6 - 1.0 / 0.6 - 0.9 cm LVPW Systolic Thickness 1.6 cm RV Chamber Size 2.0 cm LVOT Diameter 2.1 cm LV Ejection Fraction 2D Teich 69.4 % LV Ejection Fraction MOD 2C 56.5 % LV Ejection Fraction 2C AL 56.3 % LA Diameter 4.8 cm LA Width 3.3 cm LA Height 5.2 cm RA Width 2.3 cm RA Height 5.0 cm Aorta at Sinotubular Diameter 2.5 cm M-MODE LV Diastolic Diameter MM 4.7 cm 4.2 - 5.9 / 3.9 - 5.3 cm LV Systolic Diameter MM 3.1 cm LV Ejection Fraction MM Teich 64.5 % IVS Diastolic Thickness MM 1.1 cm 0.6 - 1.0 / 0.6 - 0.9 cm IVS Systolic Thickness MM 1.4 cm LVPW Diastolic Thickness MM 1.3 cm 0.6 - 1.0 / 0.6 - 0.9 cm LVPW Systolic Thickness MM 1.5 cm RV Diastolic Diameter MM 1.2 cm Aortic Annulus Diameter 3.4 cm LA Ao Ratio MM 1.4 MV E Point Septal Separation 0.9 cm DOPPLER AV Peak Velocity 114.0 cm/s LVOT Peak Velocity 76.0 cm/s AV Area Cont Eq vti 2.5 cm squared AV Area Cont Eq pk 2.3 cm squared MV Area PHT 3.5 cm squared Mitral E to A Ratio 1.3 MV E' Velocity 9.0 cm/s Mitral E to MV E' Ratio 12.8 Mitral E to LV E' Lateral Ratio 12.3 Mitral E to LV E' Septal Ratio 13.4 TR Peak Velocity 287.0 cm/s TR Peak Gradient 33.0 mmHg TV Peak E Velocity 77.0 cm/s Right Atrial Pressure 3.0 mmHg Pulmonary Artery Systolic Pressu 35.9 mmHg PV Peak Velocity 70.0 cm/s RV Acceleration Time 0.1 s RV Ejection Time 0.3 s RV AcT/ET 0.3 FINDINGS Left Ventricle Normal left ventricular size, systolic function and wall thickness, with no regional wall motion abnormalities. Left ventricular ejection fraction is estimated at 60 %. Normal diastolic function. Right Ventricle Normal right ventricular size and systolic function. Right ventricular systolic pressure 35.9 mmHg. Right Atrium Normal right atrial size. Right atrial pressure estimated at 3 mm Hg. Left Atrium Normal left atrial size. Mitral Valve Mildly thickened mitral valve. No mitral valve stenosis. Trace mitral valve regurgitation. Aortic Valve Mildly thickened trileaflet aortic valve. No aortic valve stenosis. No aortic valve regurgitation. Tricuspid Valve Structurally normal tricuspid valve. Trace tricuspid valve regurgitation. Pulmonic Valve Pulmonic valve not well visualized. Trace pulmonary valve regurgitation. Pericardium No pericardial effusion. Aorta Normal size aortic root and proximal ascending aorta. CONCLUSIONS 1. Normal left ventricular size, systolic function and wall thickness, with no regional wall motion abnormalities. Left ventricular ejection fraction is estimated at 60 %. Normal diastolic function. 2. Normal right ventricular size and systolic function. 3. Mild pulmonary hypertension with pulmonary artery pressure estimated at 36 mm Hg. 4. No significant valvular abnormality. 5. No prior similar studies to compare. Elena Garcia MD (Electronically Signed) Final Date: 17 September 2019 19:46 S
--- NOTE | 2019-09-17 13:49 | XRR_ITS ---
PROCEDURE INFORMATION: Exam: XR Chest, 1 View Exam date and time: 09/17/2019 1:50 PM Age: 79 years old Clinical indication: Prior surgery; Surgery date: 6+ months; Surgery type: Cabg; Patient HX: CVA, dizzy; HX of lung cancer; Ex smoker TECHNIQUE: Imaging protocol: XR of the chest Views: 1 view. COMPARISON: CR XR chest 1V portable [id number] 09/03/2019 1:23 PM FINDINGS: Lungs: Stable right hemidiaphragm elevation. No consolidation. Pleural space: Unremarkable. No pleural effusion. No pneumothorax. Heart/Mediastinum: CABG. No cardiomegaly. Bones/joints: No acute findings. Sternotomy. XR/XR chest 1V portable [id number] IMPRESSION: No acute findings.
[2019-09-17 14:17] LABS: INR 0.96 (0.8-1.2)
--- NOTE | 2019-09-17 14:24 | PM.HP ---
Providers/Chief Complaint Primary Care Provider: Aislinn Beebe NP Chief Complaint: dizzy History of Present Illness Lynnette Sevilla is a 79 year old male Lynnette who presents to the hospital with complaints of dizziness. He reports he had significant dizziness previously, 2 weeks ago but seem to get better and then worsened again the last 2 to 3 days. He reports it comes and goes. He has difficulty describing his symptoms. I called his and she reports he has difficulty remembering at times, difficulty remembering what words to say. Several weeks ago he forgot getting , where he lived. No fevers. Occasional headache. No nausea and vomiting. He has had a presentation like this before in June with multiple strokes and was taken off Eliquis and placed on Lovenox. He reports he tries to take it but frequently misses doses, around 3 times a week and reports that he has sometimes significant difficulty injecting the medicine. Certainly it does not sound like he has been consistent taking it. reports she is concerned about his ability to live at home secondary to his memory difficulties, gait instability. He has not yet fallen. Review of Systems General: Reports: 10 or more systems reviewed and unremarkable except in HPI and below Const: Denies: fever or chills Eyes: Denies: change in vision ENMT: Denies: throat pain Card: Denies: chest pain Resp: Denies: shortness of breath GI: Denies: abdominal pain : Denies: difficulty urinating Musc: Denies: neck pain Skin/Breast: Denies: rash Neuro: Reports: headache, lack of coordination and difficulty walking Psych: Reports: memory loss; Denies: depression or visual hallucinations Endo: Denies: excessive urination Eren/Lymph: Denies: easy bruising All/Imm: Denies: hives Medications/Allergies Home Medications Medication Instructions Recorded Confirmed Last Taken Type apixaban [Eliquis] 5 mg PO BID 09/17/19 09/17/19 09/17/19 History Allergies Allergy/AdvReac Type Severity Reaction Status Date / Time naproxen [From Aleve] Allergy ALGY-Hives Verified 09/17/19 12:49 Penicillins Allergy ALGY-Hives Verified 09/17/19 12:49 PFSH Acute PFSH: Medical History (Updated 09/17/19 @ 14:33 by Cy Hodges MD) Accelerated hypertension Allergic rhinitis BPH (benign prostatic hyperplasia) Carotid artery disease 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 Chronic anticoagulation COPD (chronic obstructive pulmonary disease) Coronary artery disease DJD (degenerative joint disease) DVT (deep venous thrombosis) GERD (gastroesophageal reflux disease) Gout Hemochromatosis Hyperlipidemia Hypertension Lung cancer 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 Obstructive sleep apnea Peripheral neuropathy Type 2 diabetes mellitus Surgical History (Updated 09/17/19 @ 14:33 by Cy Hodges MD) History of left hip hemiarthroplasty Social History (Updated 09/17/19 @ 15:34 by Cy Hodges MD) Smoking and tobacco status: former smoker Substance/Drug Use: never Supplemental PFSH Information: Family history noncontributory Vitals/I&O/Wt Last Vital Signs Temp 98.3 F 09/17/19 12:43 Pulse 69 09/17/19 12:43 Resp 18 09/17/19 12:43 BP 139/73 09/17/19 12:43 Pulse Ox 92 09/17/19 12:43 Weight last 48 hrs Weight 75.75 kg Physical Exam Narrative: EXAM NARRATIVE: General exam no apparent distress Neurologic: Some difficulty with word finding ability. Gait is unsteady but cerebellar function negative. Cranial nerves II through XII grossly intact. Slightly confused. HEENT: Pupils equally round. They are responsive. Oropharynx is clear. Tongue was midline. Neck is supple no lymphadenopathy or thyromegaly Cardiovascular regular rate and rhythm without murmur no S3 or S4 Lungs clear no wheezing or crackles Abdomen is soft positive bowel sounds. No obvious organomegaly was deferred Extremities no cyanosis clubbing or edema, cap refill brisk Skin no rash Data : 09/17/19 13:00 09/17/19 13:00 Other data: Liver function tests are normal. Urinalysis has not been done. TSH has not been done. Chest x-ray demonstrates some elevation of his right hemidiaphragm, previous coronary bypass CT scan demonstrates small vessel disease MRI demonstrates multiple new bilateral lobar acute infarcts since August 22. Doubt metastasis CT scan demonstrates sinus rhythm, normal axis, poor R wave progression. Transesophageal echocardiogram demonstrated preserved EF, no vegetations on July 06, 2019 A&P Assessment and plan (1) Embolic stroke: He has multiple new prior CVAs on MRI yesterday as compared to previous MRI on August 22. This is secondary to his difficulty administering Lovenox, and noncompliance with it. Most of his symptoms are memory loss, gait instability, and dizziness. At this point he may require half-way facility placement. He has had multiple MRIs, carotid imaging studies, and even a ANGELIQUE. No further work-up is indicated other than the transthoracic echo obtained in the emergency department PT and OT consultations Continue many of his home medications including Plavix and Lovenox Telemetry Status: Acute Code(s): I63.9 - Cerebral infarction, unspecified (2) Altered mental status: See above Status: Acute Code(s): R41.82 - Altered mental status, unspecified Additional A&P Information History of non-small cell lung cancer with metastasis to the bone Hypertension Coronary artery disease Hyperlipidemia Type 2 diabetes. Sliding scale insulin Multiple other medical problems as outlined in past medical history Full code Lovenox will suffice for DVT prophylaxis Attestations Medical Necessity Statement*: Will need greater than 2 midnight stay for treatment of acute CVA, multiple infarcts, embolic. Time Spent in Patient Care: Greater than 35 minutes Coding Level of Care Code Acute Helpdesk Specialist for Moises Sam Diagnoses Embolic stroke I63.9 Altered mental status R41.82
[2019-09-17 14:59] LABS: Add Urine Microscopic? NO
[2019-09-17 15:13] LABS: Bilirubin Urine Neg (NEGATIVE); Blood Urine Neg (Negative); Glucose Urine UA 4+ (Normal); Ketones Urine Negative (Negative); Leukocyte Esterase Urine Negative (Negative); Nitrate Urine Negative (Negative); Protein Urine Neg (Negative); Specific Gravity, Urine 1.005 (1.005-1.030); Urine Appearance Clear (CLEAR); Urine Color Straw (Yellow); Urobilinogen Urine Norm (Negative)
[2019-09-17 15:55] VITALS: BP 137/58; PULSE 96; RESP 18; TEMP 36.8; O2SAT 91
[2019-09-17 16:06] LABS: Thyroid Stimulating Hormone 1.92 uIU/mL (0.27-4.20)
[2019-09-17 16:46] VITALS: BP 129/69; PULSE 71; RESP 18; TEMP 36.7; O2SAT 92
[2019-09-17] MEDS: carvedilol 25 mg Tablet PO (17:38)
[2019-09-17] MEDS: enoxaparin 80 mg/0.8 mL Syringe SUBCUT (17:38)
[2019-09-17 17:39] LABS: Glucose Point of Care 119 mg/dL (70-110)
[2019-09-17] MEDS: sodium chloride 0.9% 1,000 ML 75 ML IV (17:39)
--- NOTE | 2019-09-17 17:45 | PC.NURSE ---
On admission patient stated I feel like I have been locked up in a shelter Asked multiple times Am I in shelter? Also stated he knows where to leave and would like to leave. Patient is now calmer and agreeable to staying overnight. Also noted that patient answers all orientation questions correctly but often looses track in conversation, shows short and jail memory loss. Requires increased time to respond as well. Will monitor closely.
[2019-09-17 19:57] VITALS: BP 131/70; PULSE 69; RESP 18; TEMP 36.4; O2SAT 91
[2019-09-17 22:13] LABS: Glucose Point of Care 105 mg/dL (70-110)
[2019-09-18] VITALS (8 sets, daily range): BP systolic 102–152; BP diastolic 63–82; PULSE 62–99; RESP 16–22; TEMP 36.4–37; O2SAT 91–92
--- NOTE | 2019-09-18 00:12 | PC.NURSE ---
NEUROCHECK Neurocheck hensley. Pt appeared to be oriented at first. When asked where he was he stated in the hospital but then when asked which one he stated Is there more than one then continued to say Well I guess we're not in [place], [place] Could not remember [place] as being town he is in. Knew day was now Thursday and is August 2019
[2019-09-18] MEDS: enoxaparin 80 mg/0.8 mL Syringe SUBCUT ×2 (04:10→17:07)
[2019-09-18] MEDS: sodium chloride 0.9% 1,000 ML 75 ML IV ×2 (04:14→17:25)
--- NOTE | 2019-09-18 04:20 | PC.NURSE ---
NEUROCHECK Little more confused when woke up this morning. Remembers me telling him he was in [facility] but stated I've thought about that and I'm not sure how that can be Is pleasant and coop. No neuro deficits other than the confusion. Says he just wants to go home. Has denied any dizziness tonight. IV infusing at 75ml/hr rate.
[2019-09-18 05:36] LABS: Basophils # 0.1 10^3/uL (0.0-0.1); Basophils % 1.2 %; Eosinophils # 0.6 10^3/uL (0.0-0.8); Eosinophils % 9.6 %; Hematocrit 45.9 % (42.0-52.0); Hemoglobin 15.5 g/dL (11.7-16.6); Lymphocytes # 1.1 10^3/uL (0.8-4.8); Lymphocytes % 19.1 %; Mean Corpuscular HGB Conc 33.8 g/dL (30.0-36.0); Mean Corpuscular Hemoglobin 30.3 pg (28.0-34.0); Mean Corpuscular Volume 89.8 fL (80-94); Mean Platelet Volume 9.9 fL (7.4-10.4); Monocytes # 0.5 10^3/uL (0.2-0.9); Monocytes % 8.6 %; Neutrophils # 3.5 10^3/uL (1.8-7.7); Neutrophils % 61.1 %; Nucleated Red Blood Cells % 0 %; Platelet Count 146 10^3/cmm (130-400); Red Blood Count 5.11 10^6/uL (4.1-5.3); Red Cell Distribution Width 12.6 % (12.1-15.1); White Blood Count 5.7 10^3/uL (4.0-10.0)
[2019-09-18 05:53] LABS: Anion Gap 16.9 (5-19); Blood Urea Nitrogen 17 mg/dL (8-23); Calcium 9.8 mg/dL (8.5-10.5); Carbon Dioxide 25 mmol/L (22-29); Chloride 104 mmol/L (98-107); Glucose 130 mg/dL (65-115); Osmolality Calculated 292 mOsm/kg (285-295); Potassium 3.9 mmol/L (3.5-5.1); Sodium 142 mmol/L (136-145)
[2019-09-18 06:41] LABS: Glucose Point of Care 125 mg/dL (70-110)
[2019-09-18] MEDS: atorvastatin 40 mg Tablet PO (08:21)
[2019-09-18] MEDS: gabapentin 300 mg Capsule PO (08:21)
[2019-09-18] MEDS: losartan 50 mg Tablet 100 MG PO (08:21)
[2019-09-18] MEDS: tamsulosin 0.4 mg Capsule PO (08:21)
[2019-09-18] MEDS: carvedilol 25 mg Tablet PO ×2 (08:22→17:07)
[2019-09-18] MEDS: allopurinol 300 mg Tablet PO (08:22)
[2019-09-18] MEDS: amlodipine 5 mg Tablet 2.5 MG PO (08:22)
[2019-09-18] MEDS: clopidogrel 75 mg Tablet PO (08:22)
[2019-09-18 10:48] LABS: Glucose Point of Care 129 mg/dL (70-110)
[2019-09-18] MEDS: acetaminophen 325 mg Tablet 650 MG PO (12:10)
--- NOTE | 2019-09-18 12:22 | P.PN_ITS ---
Subjective Subjective: Interval history: Lynnette reports he is doing okay. Denies being confused currently. Medications: Reviewed: Yes Vitals/I&O/Wt Last Vital Signs Temp 98.6 F 09/18/19 11:07 Pulse 71 09/18/19 11:07 Resp 18 09/18/19 11:07 BP 102/64 09/18/19 11:07 Pulse Ox 91 09/18/19 11:07 09/17/19 09/18/19 09/18/19 22:59 06:59 14:59 Intake Total 1240 / 1240 1033.75 / 2273.75 240 / 240 Balance 1240 / 1240 1033.75 / 2273.75 240 / 240 Weight last 48 hrs Weight 75.75 kg Physical Exam Narrative: EXAM NARRATIVE: General exam no apparent distress Neurologic: No obvious focal deficits but somewhat slow to respond and seemed slightly dazed Cardiovascular regular rate and rhythm without murmur no S3 or S4 Lungs clear no wheezing or crackles Abdomen is soft positive bowel sounds. No obvious organomegaly was deferred Extremities no cyanosis clubbing or edema, cap refill brisk Data : 09/18/19 05:03 09/18/19 05:03 Micro: Microbiology 09/17/19 14:31 Blood Culture - Preliminary Blood SPECIMEN COLLECTED 09/17/19 14:25 Blood Culture - Preliminary Blood SPECIMEN COLLECTED A&P Assessment and plan (1) Embolic stroke: He has multiple new prior CVAs on MRI September 15 as compared to previous MRI on August 22. This is secondary to his difficulty administering Lovenox, and noncompliance with it. Most of his symptoms are memory loss, gait instability, and dizziness. At this point he may require custodial facility placement. He has had multiple MRIs, carotid imaging studies, and even a ANGELIQUE. No further work-up is indicated other than the transthoracic echo obtained in the emergency department. This was essentially normal PT and OT consultations Continue many of his home medications including Plavix and Lovenox Telemetry It appears his treatment failure is from difficulty giving and remembering to take Lovenox injections. Status: Acute Code(s): I63.9 - Cerebral infarction, unspecified (2) Altered mental status: See above Overall improving Status: Acute Code(s): R41.82 - Altered mental status, unspecified Additional A&P Information History of non-small cell lung cancer with metastasis to the bone Hypertension Coronary artery disease Hyperlipidemia Type 2 diabetes. Sliding scale insulin Multiple other medical problems as outlined in past medical history Full code Lovenox will suffice for DVT prophylaxis No need for laboratory tomorrow. Await placement Attestations Medical Necessity Statement*: Needs continued hospital stay for close monitoring secondary to multiple acute CVA's causing mental status changes. Coding Level of Care Code Acute Elevator Builder for Moises Sam Diagnoses Embolic stroke I63.9 Altered mental status R41.82
[2019-09-18 16:56] LABS: Glucose Point of Care 129 mg/dL (70-110)
[2019-09-18 21:24] LABS: Glucose Point of Care 157 mg/dL (70-110)
[2019-09-19] VITALS (11 sets, daily range): BP systolic 125–139; BP diastolic 68–82; PULSE 64–67; RESP 17–18; TEMP 36.4–36.8; O2SAT 90–95
[2019-09-19] MEDS: sodium chloride 0.9% 1,000 ML 75 ML IV (05:07)
[2019-09-19] MEDS: enoxaparin 80 mg/0.8 mL Syringe SUBCUT ×2 (05:07→18:04)
[2019-09-19 07:01] LABS: Glucose Point of Care 126 mg/dL (70-110)
--- NOTE | 2019-09-19 09:00 | PC.NURSE ---
Mr Sevilla asked that oncology be called to let them know he was in the hospital and would not make it to his treatment. Basic Acoustic Analyst talked to Jenny at the oncology clinic.
[2019-09-19] MEDS: allopurinol 300 mg Tablet PO (09:43)
[2019-09-19] MEDS: carvedilol 25 mg Tablet PO ×2 (09:43→18:05)
[2019-09-19] MEDS: atorvastatin 40 mg Tablet PO (09:44)
[2019-09-19] MEDS: losartan 50 mg Tablet 100 MG PO (09:44)
[2019-09-19] MEDS: amlodipine 5 mg Tablet 2.5 MG PO (09:45)
[2019-09-19] MEDS: tamsulosin 0.4 mg Capsule PO (09:45)
[2019-09-19] MEDS: clopidogrel 75 mg Tablet PO (09:45)
[2019-09-19] MEDS: gabapentin 300 mg Capsule PO (09:46)
--- NOTE | 2019-09-19 15:28 | PC.RESP ---
Patient given information for Pulmonary Rehab
--- NOTE | 2019-09-19 16:23 | PM.PN ---
Subjective Subjective: Interval history: No acute overnight events. Remains pleasantly confused Medications: Reviewed: Yes Vitals/I&O/Wt Last Vital Signs Temp 98 F 09/19/19 15:11 Pulse 65 09/19/19 15:11 Resp 18 09/19/19 15:11 BP 132/76 09/19/19 15:11 Pulse Ox 90 09/19/19 15:11 09/19/19 09/19/19 09/19/19 06:59 14:59 22:59 Intake Total 877.5 / 2882.5 560 / 560 Balance 877.5 / 1982.5 560 / 560 Physical Exam Narrative: EXAM NARRATIVE: General exam: no apparent distress Neurologic: No obvious focal motor deficits but pleasantly confused Cardiovascular regular rate and rhythm without murmur no S3 or S4 Lungs clear no wheezing or crackles Abdomen is soft positive bowel sounds. No obvious organomegaly EXT: no cyanosis clubbing or edema Data : 09/18/19 05:03 09/18/19 05:03 Micro: Microbiology 09/17/19 14:31 Blood Culture - Preliminary Blood NEGATIVE TO DATE 09/17/19 14:25 Blood Culture - Preliminary Blood NEGATIVE TO DATE A&P Assessment and plan (1) Embolic stroke: He has multiple new prior CVAs on MRI September 15 as compared to previous MRI on August 22. This is secondary to his difficulty administering Lovenox, and noncompliance with it. Most of his symptoms are memory loss, gait instability, and dizziness. At this point he may require prison facility placement. He has had multiple MRIs, carotid imaging studies, and even a ANGELIQUE. No further work-up is indicated other than the transthoracic echo obtained in the emergency department. This was essentially normal. PT and OT consultations Continue many of his home medications including Plavix and Lovenox Telemetry It appears his treatment failure is from difficulty giving and remembering to take Lovenox injections. Status: Acute (2) Altered mental status: See above Overall improving Status: Acute Additional A&P Information History of non-small cell lung cancer with metastasis to the bone Hypertension Coronary artery disease Hyperlipidemia Type 2 diabetes. Sliding scale insulin Multiple other medical problems as outlined in past medical history Full code Lovenox will suffice for DVT prophylaxis Await placement Attestations Medical Necessity Statement*: awaiting placement at [facility] Coding Level of Care Code Acute Assisted Living Coordinator for Chg Fwd Diagnoses Embolic stroke I63.9 Altered mental status R41.82
[2019-09-19 20:54] LABS: Glucose Point of Care 112 mg/dL (70-110)
[2019-09-19 20:55] LABS: Glucose Point of Care 192 mg/dL (70-110)
[2019-09-19 21:44] LABS: Glucose Point of Care 130 mg/dL (70-110)
[2019-09-20] VITALS (9 sets, daily range): BP systolic 113–150; BP diastolic 49–73; PULSE 61–73; RESP 17–19; TEMP 36.4–37.6; O2SAT 90–99
[2019-09-20] MEDS: enoxaparin 80 mg/0.8 mL Syringe SUBCUT ×2 (04:44→17:22)
[2019-09-20] MEDS: sodium chloride 0.9% 1,000 ML 75 ML IV (04:44)
[2019-09-20 06:32] LABS: Glucose Point of Care 133 mg/dL (70-110)
[2019-09-20] MEDS: clopidogrel 75 mg Tablet PO (09:11)
[2019-09-20] MEDS: tamsulosin 0.4 mg Capsule PO (09:11)
[2019-09-20] MEDS: losartan 50 mg Tablet 100 MG PO (09:11)
[2019-09-20] MEDS: gabapentin 300 mg Capsule PO (09:11)
[2019-09-20] MEDS: atorvastatin 40 mg Tablet PO (09:12)
[2019-09-20] MEDS: carvedilol 25 mg Tablet PO ×2 (09:12→17:23)
[2019-09-20] MEDS: allopurinol 300 mg Tablet PO (09:12)
[2019-09-20] MEDS: amlodipine 5 mg Tablet 2.5 MG PO (09:12)
--- NOTE | 2019-09-20 10:44 | P.PN_ITS ---
Subjective Subjective: Interval history: No acute overnight events. Remains pleasantly confused. Partcipating in PT, walked 2 laps yesterday. Medications: Reviewed: Yes Vitals/I&O/Wt Last Vital Signs Temp 97.6 F 09/20/19 07:17 Pulse 67 09/20/19 07:17 Resp 18 09/20/19 07:17 BP 130/72 09/20/19 09:11 Pulse Ox 92 09/20/19 07:17 09/19/19 09/20/19 09/20/19 22:59 06:59 14:59 Intake Total 1480 / 2040 240 / 240 Balance 1480 / 0 240 / 240 Physical Exam Narrative: EXAM NARRATIVE: General exam: no apparent distress Neurologic: No obvious focal motor deficits but pleasantly confused Cardiovascular regular rate and rhythm without murmur no S3 or S4 Lungs clear no wheezing or crackles Abdomen is soft positive bowel sounds. No obvious organomegaly EXT: no cyanosis clubbing or edema Data : 09/18/19 05:03 09/18/19 05:03 A&P Assessment and plan (1) Embolic stroke: He has multiple new prior CVAs on MRI September 15 as compared to previous MRI on August 22. This is secondary to his difficulty administering Lovenox, and noncompliance with it. Most of his symptoms are memory loss, gait instability, and dizziness. At this point he may require [facility] facility placement. This is currently being worked on. Alternate plan is home with [facility] With lovenox education for He has had multiple MRIs, carotid imaging studies, and even a ANGELIQUE. No further work-up is indicated other than the transthoracic echo obtained in the emergency department. This was essentially normal. PT and OT consultations Continue many of his home medications including Plavix and Lovenox Telemetry It appears his treatment failure is from difficulty giving and remembering to take Lovenox injections. Status: Acute (2) Altered mental status: See above Overall improving Status: Acute Additional A&P Information History of non-small cell lung cancer with metastasis to the bone Hypertension Coronary artery disease Hyperlipidemia Type 2 diabetes. Sliding scale insulin. Blood sugar well controlled. Full code Lovenox will suffice for DVT prophylaxis Await placement vs home with [facility] Attestations Medical Necessity Statement*: Awaiting NH placement, if unable plan discharge with [facility] Coding Level of Care Code Acute Mobile Heavy Equipment Operator for Moises Fwd Diagnoses Embolic stroke I63.9 Altered mental status R41.82
--- NOTE | 2019-09-20 11:01 | PC.SOCIAL ---
IMM Update Pg 2 of IMM given and explained to patient. Copy provided to patient.
[2019-09-20 12:16] LABS: Glucose Point of Care 116 mg/dL (70-110)
[2019-09-20 16:50] LABS: Glucose Point of Care 140 mg/dL (70-110)
--- NOTE | 2019-09-20 20:36 | PC.NURSE ---
Patient has no current IV access, ok'd per Dr Contreras to discontinue IVF and ok to leave PIV out at this time.
[2019-09-20 20:58] LABS: Glucose Point of Care 162 mg/dL (70-110)
[2019-09-21] VITALS: BP 105/56; PULSE 63; RESP 18; TEMP 36.7; O2SAT 94
[2019-09-21] MEDS: enoxaparin 80 mg/0.8 mL Syringe SUBCUT (03:49)
[2019-09-21 04:00] VITALS: BP 130/69; PULSE 65; RESP 18; TEMP 36.4; O2SAT 91
[2019-09-21 05:37] LABS: Basophils % 0.6 %; Eosinophils # 0.4 10^3/uL (0.0-0.8); Eosinophils % 8.8 %; Hematocrit 46.5 % (42.0-52.0); Hemoglobin 15.8 g/dL (11.7-16.6); Lymphocytes # 1.2 10^3/uL (0.8-4.8); Lymphocytes % 23.4 %; Mean Corpuscular Hemoglobin 31.1 pg (28.0-34.0); Mean Corpuscular Volume 91.5 fL (80-94); Mean Platelet Volume 10.2 fL (7.4-10.4); Monocytes # 0.4 10^3/uL (0.2-0.9); Monocytes % 8.2 %; Neutrophils # 2.9 10^3/uL (1.8-7.7); Neutrophils % 58.8 %; Nucleated Red Blood Cells % 0 %; Platelet Count 151 10^3/cmm (130-400); Red Blood Count 5.08 10^6/uL (4.1-5.3); Red Cell Distribution Width 12.9 % (12.1-15.1)
[2019-09-21 05:45] LABS: Alanine Aminotransferase 14 U/L (0-41); Albumin Level 4.1 g/dL (3.5-5.2); Alkaline Phosphatase 40 IU/L (40-130); Anion Gap 13.6 (5-19); Aspartate Amino Transferase 16 U/L (0-40); Blood Urea Nitrogen 16 mg/dL (8-23); Calcium 9.4 mg/dL (8.5-10.5); Carbon Dioxide 25 mmol/L (22-29); Chloride 105 mmol/L (98-107); Globulin 2.5 g/dL (1.3-4.6); Glucose 129 mg/dL (65-115); Osmolality Calculated 288 mOsm/kg (285-295); Potassium 3.6 mmol/L (3.5-5.1); Sodium 140 mmol/L (136-145); Total Bilirubin 0.7 mg/dL (0.15-1.2); Total Protein 6.6 g/dL (6.6-8.7)
[2019-09-21 06:59] LABS: Glucose Point of Care 131 mg/dL (70-110)
[2019-09-21 07:20] VITALS: BP 126/67; PULSE 66; RESP 18; TEMP 36.9; O2SAT 91
[2019-09-21] MEDS: atorvastatin 40 mg Tablet PO (10:09)
[2019-09-21] MEDS: carvedilol 25 mg Tablet PO (10:09)
[2019-09-21] MEDS: allopurinol 300 mg Tablet PO (10:09)
[2019-09-21 10:10] VITALS: BP 133/67
[2019-09-21] MEDS: gabapentin 300 mg Capsule PO (10:10)
[2019-09-21] MEDS: losartan 50 mg Tablet 100 MG PO (10:10)
[2019-09-21] MEDS: clopidogrel 75 mg Tablet PO (10:13)
[2019-09-21] MEDS: tamsulosin 0.4 mg Capsule PO (10:13)
[2019-09-21] MEDS: amlodipine 5 mg Tablet 2.5 MG PO (10:14)
--- NOTE | 2019-09-21 10:41 | P.DS_ITS ---
Discharge Providers Date of Admission: 09/17/19 15:29 Date of Discharge: September 21, 2019 Attending Provider at Admission: Cy Hodges MD Attending Provider at Discharge: Phyllis Dickson MD Primary Care Provider: Aislinn Beebe NP Diagnoses at Discharge Discharge Diagnosis (1) Embolic stroke: Status: Acute (2) Altered mental status: Status: Acute Reason for Visit Reason for Visit: Reason For Visit: dizzy Hospital Course Hospital Course: Lynnette is a 79-year-old white male who presents to the hospital with complaints of dizziness. He reports he had significant dizziness previously, 2 weeks ago but seem to get better and then worsened again the last 2 to 3 days. He reports it comes and goes. He has difficulty describing his symptoms. I called his and she reports he has difficulty remembering at times, difficulty remembering what words to say. Several weeks ago he forgot getting , where he lived. No fevers. Occasional headache. No nausea and vomiting. He has had a presentation like this before in June with multiple strokes and was taken off Eliquis and placed on Lovenox. He reports he tries to take it but frequently misses doses, around 3 times a week and r eports that he has sometimes significant difficulty injecting the medicine. Certainly it does not sound like he has been consistent taking it. reports she is concerned about his ability to live at home secondary to his memory difficulties, gait instability. He has not yet fallen. Discharge Summary: He has multiple new prior CVAs on MRI September 15 as compared to previous MRI on August 22. This is secondary to his difficulty administering Lovenox, and noncompliance with it. Most of his symptoms are memory loss, gait instability, and dizziness. He worked with PT and did well. He is intermittently confused, but for the most part able to hold a conversation with me and answer questions appropriately/ Intermittently forgetful. Initially his family and him had opted to go to [facility], however today the patient has changed his mind and wishes to return home. Him and his confirm that their daughter in law or their next door neighbor will be coming in to his house to give him lovenox twice daily. Home health is being additionally set up to ensure medication compliance and address concerns regarding medications. Physical Exam Narrative: EXAM NARRATIVE: GEN: Awake, alert and oriented CVS: S1S2 N RS: CTA B/L Abd: Soft, nt/nd , bs+ [employer]: no focal neuro deficits Discharge Data Data Completed and Pending: Completed Studies During Hospitalization Category Date Time Status CT head wo con* 7 0450 Urgent Cat Scan 09/17/19 12:48 Completed XR chest 1V norma ble [id number] Stat Exams 09/17/19 13:49 Completed CV echo complete* [id number] Urgent Ultrasound 09/17/19 13:47 Completed Pending at discharge Category Date Time Status Blood Culture Sta t Lab 09/17/19 14:31 Results Miscellaneous [place] t Routine Lab 09/17/19 04:00 Received Labs from last 24 hours 09/21/19 09/21/19 09/21/19 06:36 04:22 04:22 WBC 5.0 RBC 5.08 Hgb 15.8 Hct 46.5 MCV 91.5 MCH 31.1 MCHC 34.0 RDW 12.9 Plt Count 151 MPV 10.2 Neut % (Auto) 58.8 Lymph % (Auto) 23.4 [place] % (Auto) 8.2 Eos % (Auto) 8.8 Baso % (Auto) 0.6 Neut # (Auto) 2.9 Lymph # (Auto) 1.2 [place] # (Auto) 0.4 Eos # (Auto) 0.4 Baso # (Auto) 0.0 Nucleated RBC % (a uto) 0 Nucleated RBCs # 0.0 Sodium 140 Potassium 3.6 Chloride 105 Carbon Dioxide 25 Anion Gap 13.6 BUN 16 Creatinine 0.8 Glucose 129 H POC Glucose 131 Calculated Osmolal ity 288 Calcium 9.4 Total Bilirubin 0.7 AST 16 ALT 14 Alkaline Phosphata se 40 Total Protein 6.6 Albumin 4.1 Globulin 2.5 09/20/19 09/20/19 09/20/19 20:32 16:36 11:27 WBC RBC Hgb Hct MCV MCH MCHC RDW Plt Count MPV Neut % (Auto) Lymph % (Auto) [place] % (Auto) Eos % (Auto) Baso % (Auto) Neut # (Auto) Lymph # (Auto) [place] # (Auto) Eos # (Auto) Baso # (Auto) Nucleated RBC % (a uto) Nucleated RBCs # Sodium Potassium Chloride Carbon Dioxide Anion Gap BUN Creatinine Glucose POC Glucose 162 140 116 Calculated Osmolal ity Calcium Total Bilirubin AST ALT Alkaline Phosphata se Total Protein Albumin Globulin Vitals: Last Vital Signs Temp 98.4 F 09/21/19 07:20 Pulse 66 09/21/19 07:20 Resp 18 09/21/19 07:20 BP 133/67 09/21/19 10:10 Pulse Ox 91 09/21/19 07:20 Discharge Plan Discharge Patient Disposition: Home Health Service Condition: Stable Prescriptions: Continued meclizine 25 mg tablet 25 mg PO QID PRN (Reason: dizziness) Qty: 20 RF: 0 carvedilol 25 mg Tablet 25 mg PO BID RF: 0 clopidogrel [Plavix] 75 mg Tablet 75 mg PO DAILY RF: 0 amlodipine [Norvasc] 5 mg Tablet 2.5 mg PO DAILY RF: 0 famotidine 20 mg Tablet 20 mg PO BID PRN (Reason: unknown) RF: 0 tamsulosin [Flomax] 0.4 mg Capsule 0.4 mg PO DAILY RF: 0 gabapentin 300 mg Capsule 300 mg PO DAILY RF: 0 allopurinol 300 mg Tablet 300 mg PO DAILY RF: 0 metformin 500 mg Tablet Extended Release 24 Hr 1,000 mg PO BID RF: 0 vitamin M80-[id number] acid 0.5-1 mg Tablet 1 tab PO DAILY RF: 0 cholecalciferol (vitamin D3) [Vitamin D3] 2,000 unit Tablet 2,000 unit PO DAILY RF: 0 omega 2-zdt-nge-fish oil [Fish Oil] 1,000 mg (120 mg-180 mg) Capsule 1 cap PO DAILY RF: 0 Jardiance 25 mg Tablet 12.5 mg PO DAILY RF: 0 lovastatin 40 mg Tablet 40 mg PO BID RF: 0 fluticasone propionate [Flonase Allergy Relief] 50 mcg/actuation [place],Suspension 1 - 2 spray INTRANASAL DAILY PRN (Reason: unknown) RF: 0 guaifenesin [Mucinex] 600 mg Tablet Extended Release 12hr 600 mg PO PRN RF: 0 Spiriva Respimat 1.25 mcg/actuation Mist 2 puff INHALATION DAILY PRN (Reason: unknown) RF: 0 valsartan 320 mg Tablet 320 mg PO DAILY RF: 0 docusate sodium 100 mg capsule 100 mg PO DAILY PRN (Reason: Constipation) RF: 0 enoxaparin [Lovenox] 80 mg/0.8 mL Syringe 80 mg SUBCUT Q12H 30 Days Qty: 48 RF: 0 Discontinued cetirizine [Zyrtec] 10 mg Tablet 10 mg PO DAILY PRN (Reason: Allergy Symptoms) RF: 0 hydrocodone-acetaminophen [[place]] 5-325 mg Tablet 1 - 2 tab PO Q4H PRN (Reason: Pain) RF: 0 Eliquis 5 mg Tablet 5 mg PO BID RF: 0 Discharge Orders: Discharge Order (Routine); Ordered 09/21/19 Ordered By: Phyllis Dickson Referrals: [facility] ([facility]) [Outside] Aislinn Beebe NP [Primary Care Provider] - 09/28/19 8:00 am Shorty Chadwick MD [Hospitalist] - 2 weeks Discharge Diet: Usual diet Discharge Activity: As per PT/OT instructions Discharge Attestations Time Spent in Discharge Care*: less than 30 min Status at Discharge: Cognitive status at discharge: cognitively intact , Behavioral status at discharge: cooperative , Quality Metrics Clinical Quality Measures During this hospital stay, did patient experience: None Coding Level of Care Code Acute Community Outreach Manager for Moises Sam Diagnoses Embolic stroke I63.9 Altered mental status R41.82
[2019-09-21 10:57] VITALS: BP 133/67
[2019-09-21 11:14] LABS: Glucose Point of Care 141 mg/dL (70-110)
[2019-09-21 14:41] VITALS: BP 133/67
== END 2019-09-21 13:05 | disposition home health service (06) | DRG 65 ==
LOC: ER 13:03 → MEDSURG 15:54
PROVIDERS: Admitting Provider Internal Medicine; Emergency Provider Emergency Medicine; Family Provider Nurse Practitioner Family; PCP Nurse Practitioner Family; Visit Provider Student in an Organized Health Care Education/Training Program
DX: I63.40 Cerebral infarction due to embolism of unspecified cerebral artery (principal); C34.90 Malignant neoplasm of unspecified part of unspecified bronchus or lung; C79.51 Secondary malignant neoplasm of bone; R26.0 Ataxic gait; R41.3 Other amnesia; R41.82 Altered mental status, unspecified; R42 Dizziness and giddiness; T45.516A Underdosing of anticoagulants, initial encounter; Z91.128 Patient's intentional underdosing of medication regimen for other reason; I10 Essential (primary) hypertension; N40.0 Benign prostatic hyperplasia without lower urinary tract symptoms; Z79.01 Long term (current) use of anticoagulants; J44.9 Chronic obstructive pulmonary disease, unspecified; I25.10 Atherosclerotic heart disease of native coronary artery without angina pectoris; M19.90 Unspecified osteoarthritis, unspecified site; Z86.718 Personal history of other venous thrombosis and embolism; K21.9 Gastro-esophageal reflux disease without esophagitis; M10.9 Gout, unspecified; E83.119 Hemochromatosis, unspecified; Z86.73 Personal history of transient ischemic attack (TIA), and cerebral infarction without residual deficits; E78.5 Hyperlipidemia, unspecified; G47.33 Obstructive sleep apnea (adult) (pediatric); E11.42 Type 2 diabetes mellitus with diabetic polyneuropathy; Z79.02 Long term (current) use of antithrombotics/antiplatelets; Z79.899 Other long term (current) drug therapy; Z79.84 Long term (current) use of oral hypoglycemic drugs; Z87.891 Personal history of nicotine dependence; Z96.642 Presence of left artificial hip joint
CPT/HCPCS: 12345; 36415; 36416; 70450; 70553; 71045; 77280; 77387; 77412; 80048; 80053; 81003; 82962; 84443; 85025; 85610; 87040; 93005; 93306; 96372; 97110; 97116; 97162; 97165; 97530; 97535; 99283; A9270; A9579; J1650; J1815; J7030; J8597

== ENCOUNTER 2019-09-30 06:39 | Outpatient (RCR) | payer MEDICARE, SELFPAY ==
--- NOTE | 2019-09-28 11:42 | ONCRAD TMN_ITS ---
Radiation Oncology Weekly Treatment Management / Treatment Summary Patient: Lynnette Sevilla MR#: [id number] : 1940> Age: 79> Sex: Male Dictated by: Dr. Koko Willis Date of Service: 09/28/2019 Referring Physician(s) : Dr. 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 ID: RT Hip, Energy: 15X, Dose/Fx (cGy): 300, #Fx: 10 10, Dose Correction (cGy): 0, Total Dose (cGy): 3,000, Start Date: 09/14/2019, End Date: 09/28/2019, Elapsed Days: 14 Current Complaints/Interval History: Current Medications: Acetaminophen Extra Strength, amLODIPine Besylate, atorvastatin Calcium, b-12, bisacodyl, carvedilol, cetirizine HCl, cholecalciferol, cVS Mucus Extended Release, docusate Sodium, dulcolax Milk of Magnesia, enoxaparin Sodium, famotidine, fish Oil, flonase, gabapentin, gabapentin, hYDROcodone-Acetaminophen, jardiance, lovastatin, meclizine HCl, meclizine HCl, metFORMIN HCl, plavix, spiriva Respimat, tamsulosin HCl. Allergies: PENICILLIN AND ALEVE. Vital Signs: Physical Exam: Appears stable, no skin erythema or desquamation. Performance Status: 2 - Ambulatory/capable of all self-care, unable to perform any work activities. Up and about more than 50% of waking hours. (ECOG) Lab: None pending in Radiation Oncology. Test performed on 08/08/2019 1:06 PM Platelet Count - 118 10 3/cmm (low), MPV - 10.8 fl (high), Cr Clearance (Est) - 67.5500 ml/min (low), Glucose - 170 mg/dl (high) and Bilirubin, Total - 1.3 mg/dl (high). Imaging: No new diagnostic imaging was performed since the last weekly treatment visit. All radiation therapy related imaging (including but not limited to kV, MV, and CBCT generated images) was reviewed. Appropriate changes, if any, were made to assure accurate target localization. Impression/Plan: He has completed 3000 cGy in 10 fractions to the right hip as planned by Dr. Gomez. He still has pain in the right hip as well as pain in the left hip. He has been noncompliant with respect to taking analgesics as directed in the past. Strongly encouraged him in the presence of his to use the analgesics as prescribed by his physicians. We have asked him to return in 6 to 8 weeks for reevaluation of the pain in each hip hopefully he will choose to comply with taking the analgesics as prescribed by his [facility] physician. CPT: 72702 Signed by: Dr. Koko Willis>09/28/2019 11:41:16 AM <<Signature on File>>
--- NOTE | 2019-09-30 16:04 | ONC FU_ITS ---
Dr. Chadwick Patient Follow-Up Note Patient: Lynnette Sevilla Unit #: [id number]: 1940 Dicatated By: Shorty Chadwick M.D.Date of Visit:Sep 30, 2019 Onc Med Follow-up/Prog Note Chief Complaint: Hemochromatosis/lung cancer. 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 His disease was stage IB (T2a, N0, M0) at initial diagnosis, but with subsequent progression to stage TIGIST (M1b). He also has hereditary hemochromatosis. In February [address] Tyler with persistent cough. His evaluation included chest CT on 03/04/2017. It showed a spiculated density in the medial aspect of the anterior segment of the right upper lobe. It measured 1.8 x 2.4 x 1.8 cm and it was new compared to a previous study from November 2013. There was no associated mediastinal or hilar adenopathy, and there was no evidence of liver or adrenal metastases. He underwent bronchoscopy on 04/06/2017. There were no endobronchial lesions identified. The lesion was found to be avid by PET/CT. There was no evidence of metastatic involvement. He underwent right upper lobectomy with mediastinal lymph node biopsy on 04/29/2017. Pathology showed low-grade (grade 1-2) adenocarcinoma measuring 3.2 x 2.4 cm. There was penetration into visceral pleura and there was evidence of lymphovascular space invasion. The margins of resection were free, and there was no involvement in 1 mediastinal lymph node, in 1 lymph node at the right mainstem bronchus, and in 2 hilar lymph nodes. He has continued on observation/expectant management following the surgery, as there appeared to be no indication for adjuvant chemotherapy. I had initially seen him in October 2012 in regard to elevated hemoglobin/hematocrit levels and elevated serum iron. His evaluation at that time showed his hemoglobin elevated at 18.1 g with hematocrit 52%. White count and platelet count were normal. The serum iron was in the upper normal range at 145 mcg/dL with transferrin saturation 30.8%. The serum ferritin, though, was elevated at 606 ng/mL. He had additional evaluation including an erythropoietin level which was in the normal range at 12 mIU/mL. A MICHAEL 2 gene mutation study was negative. The HFE gene analysis showed double heterozygosity for the C282Y and the H63D mutations, consistent with hereditary hemochromatosis. He has been managed on a phlebotomy program. His other medical illnesses include hypertension, hyperlipidemia, type 2 diabetes, coronary artery disease, peripheral vascular disease, and degenerative arthritis. He underwent coronary artery bypass surgery in 1996 and he underwent an arterial bypass procedure to the right leg in 1999. In 2013 he was found to have significant hypoxemia. On evaluation he was found to have COPD and obstructive sleep apnea. 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 Also noted was calcific plaque at the origins of the common iliac arteries at 54% on the left and 60% on the right. He has a history of smoking 1-1 1/2 packs of cigarettes daily, but he quit smoking in 1996. INTERIM HISTORY: Surveillance chest CT on 12/07/2018 showed stable postoperative changes from prior right upper lobectomy. There was long-term stability of left upper lower lobe nodules. There was chronic emphysema. There was no evidence for recurrent or metastatic neoplastic process. He continued observation/expectant management for the lung cancer. He had then presented to Dr. Tyler's office with swelling and redness in the left arm, in the area of the antecubital fossa. Venous Doppler of the left arm on 02/11/2019 showed extensive occlusive thrombus in the left basilic vein. All other veins of the left upper extremity appeared free of thrombus. He was started on anticoagulation with apixaban. He was seen here for follow-up on 02/25/2019. He then had a restaging PET/CT on 03/10/2019. It showed interval development of abnormal activity in a lytic lesion in the left femoral neck, suspicious for metastatic disease. There was interval resolution of the small right upper lobe lung mass. There were no other areas of abnormal uptake on that study. With those findings, he was referred to Dr. Chin. On 03/17/2019 he underwent prophylactic open reduction with interval fixation of the left hip. Pathology on the bone fragments did confirm metastatic carcinoma consistent with the previous diagnosis of pulmonary infiltrating adenocarcinoma. Following recovery from the surgery he was seen by Dr. Boggs for palliative radiation. He completed treatment on 04/18/2019 to a total dose of 3900 cGy. He tolerated the treatment well. In the meantime, I had also requested a next generation sequencing study. It was performed on the original lung tumor, as the specimen from the left femur was insufficient for analysis. That study showed low PD-L1 expression at 7%. The mutation burden, though, was high. The tumor was negative for EGFR, BRAF, and KRAS mutations, and it also tested negative for the ALK and ROS1 rearrangements. The NTRK fusion also was not detected. I had seen him for a follow-up visit on 05/02/2019. He had restaging CT scans on 06/01/2019 showed no evidence for recurrent disease in the chest, abdomen, or pelvis. In the setting of a treated, solitary metastasis, he was recommended to continue on observation/expectant management. On 06/28/2019 he was seen in the emergency room with complaints of dizziness. CT of the head with and without contrast showed no acute findings. He was diagnosed with vestibular neuronitis. On 07/04/2019 he was admitted to the hospital after returning to the emergency room with acute mental status changes. His repeat head CT showed a 10 mm focal area of low-attenuation in the left frontal lobe which appeared new from the recent study. Was felt to possibly represent a subacute infarct. Further evaluation with brain MRI showed multifocal patchy areas of acute ischemia involving the YUNG territories bilaterally. The largest area of ischemia measured approximately 1 cm. There was no evidence of mass-effect or midline shift. The clinical presentation appeared most consistent with cancer related hypercoagulability. As it occurred while on a therapeutic dose of apixaban, his anticoagulation was transitioned to therapeutic Lovenox. His echocardiogram showed normal left ventricular cavity size and systolic function with estimated ejection fraction at 60%. There were no significant valvular abnormalities noted. There appeared to be no significant change compared to her previous study from July 2018. His bilateral carotid Doppler studies showed just moderate atheromatous plaque bilaterally. Head MRA showed no evidence of high-grade proximal stenosis or aneurysm. He was discharged to [facility] for rehab. At that point, he was still having significant expressive aphasia, but his confusion had improved significantly. He subsequently was able to return home. Restaging CT scans of the chest, abdomen, and pelvis on 07/25/2019 showed stable 5 mm noncalcified pulmonary nodule in the left upper lobe and a 3 mm noncalcified nodule in the left lower lobe. There was no mediastinal or hilar adenopathy. A few scattered hypodensities throughout the liver are too small to characterize but similar to prior studies. A new 7 mm hypodensity was noted in the lower pole of the right kidney. There was increased density within the lumen of a contracted gallbladder, suspicious for stones and/or chronic cholecystitis. There was no osteoblastic or osteolytic bone disease identified. On 08/03/2019 he was seen in the emergency room with dizziness. He has repeat noncontrast head CT showed atrophy and chronic deep white matter ischemic change with no acute intracranial abnormality identified. He was diagnosed with vertigo and treated with meclizine. I had seen him for a follow-up visit on 08/08/2019. He had opted to stop the Lovenox injections, and he had restarted anticoagulation with apixaban. He also was taking Plavix. He was still having some difficulty with his speech and he was having some confusion at times and some difficulty with memory. Subsequent to that visit, his had called and reported that his memory and confusion were continuing to worsen. A repeat brain MRI on 08/23/2019 showed multifocal areas of abnormal diffusion abnormalities and flair signal abnormalities. It was noted to predominantly involve the left hippocampal formation with additional more focal diffusion signal abnormalities extending towards the temporal occipital junction posteriorly. That finding appeared to be most consistent with worsening subacute infarcts. Also noted, though, were additional cortical areas of very subtle enhancement throughout the brain which were suspicious for metastatic lesions. The most concerning were in the left frontal vertex. With those findings, I was able to get his anticoagulation transition back to Lovenox. A repeat PET/CT on 09/01/2019 showed interval development of a small well-circumscribed lytic lesion in the upper femoral neck on the right measuring up to 19 mm with SUV 7.3. A small amount of fracture was noted along the posterior upper border of the left greater trochanter. Abnormal increased activity was noted along the site of the previous suspected metastatic lesion in the left femoral neck with a maximum SUV 6.2, similar to the previous study. There were no other areas of significant abnormal activity identified. Given the PET/CT findings, he was then given palliative radiation to the right hip, completed on 09/28/2019 to a total dose of 3000 cGy. He tolerated the treatment well. In the meantime, a repeat brain MRI on 09/16/2019 again showed numerous bilateral multi lobar acute lacunar infarcts. The previously described areas of enhancement are felt to most likely be related to ischemia and not to metastatic disease. At that time there was felt to be no convincing evidence for metastatic disease. He is seen for a follow-up visit. He complains that he is tired, but he has been a little more active. His ECOG score is 2. He has good appetite. He has no fever or night sweats. He says he always has sinus drainage. He has some shortness of breath. He has not been having cough, and he does not complain of chest pain. He has had a little nausea and a little abdominal discomfort. He has mild constipation. He has no complaints. He is having pain in groin area on both sides, right worse than left. It seems to bother him most when he first gets up. He has no other joint or bone pain. He does not complain of headache. He still has some difficulty with balance and he is still having some difficulty with speech, though not as much. He has no focal neurologic symptoms. Medications: Acetaminophen Extra Strength 1 (500 mg) Tablet Oral b.i.d., amLODIPine Besylate 1 Tablet (of 2.5 mg) Oral daily, Atorvastatin Calcium 1 Tablet (of 20 mg) Oral daily, B-12 1 Tablet (of 1000 mcg) Tablet Oral daily, Bisacodyl 1 Tablet (of 5 mg) Tablet, enteric coated Oral daily PRN, Carvedilol 1 (25 mg) Tablet Oral b.i.d., Cetirizine HCl 1 Tablet (of 10 mg) Oral daily, Cholecalciferol 1 Capsule (of 2000 Units) Oral daily, [employer] Mucus Extended Release 1 Tablet (of 600 mg) Tablet SR 12 HR Oral daily PRN, Docusate Sodium 1 Tablet (of 100 mg) Oral daily, Dulcolax Milk of Magnesia 30 mL (of 400 mg/5mL) Suspension Oral daily PRN, Enoxaparin Sodium 80 mg (of 300 mg/3mL) Injection b.i.d., Famotidine 1 Tablet (of 20 mg) Tablet Oral b.i.d., Fish Oil 1 (1200 mg) Capsule Oral daily, Flonase Suspension Nasal, Gabapentin 1 Tablet (of 300 mg) Oral daily, Jardiance 0.5 Tablet (of 12.5 ) Oral daily, Lovastatin 1 Tablet (of 40 mg) Oral b.i.d., Meclizine HCl 1 Tablet (of 25 mg) Oral daily PRN, MetFORMIN HCl 2 Tablet (of 500 mg) Oral b.i.d., Plavix 1 (75 mg) Tablet Oral daily, Spiriva Respimat Aerosol, solution Inhalation, Tamsulosin HCl 1 (0.4 mg) Capsule Oral daily Allergies: PENICILLIN AND ALEVE Review of Systems: Constitutional - His energy is a little better. He still has limited acitivty. His appetite is good. His weight is up a couple of pounds. No fever, chills, hot flashes, or night sweats. ECOG score is 2, ENMT - He has sinus congestion/drainage. No mouth sores. No sore throat or difficulty swallowing, Hematologic/Lymphatic - No abnormal bruising or bleeding, Respiratory - He has a little shortness of breath. No cough. No pleuritic pain or hemoptysis, Cardiovascular - No angina pain. No palpitations, Gastrointestinal - He has a little nausea. No heartburn or acid reflux. He has mild constipation. No blood in the stool or black stools, Genitourinary (M) - No dysuria or hematuria. No urinary frequency. No urgency or incontinence, Musculoskeletal - He is having pain in the groin area on both sides, right worse than left. He has no other joint or bone pain, Integumentary - No skin complications, Neurologic - No headaches. He still has some trouble with his balance. No numbness/paresthesias. He has some difficulty with speech and some confusion, Psychiatric - No anxiety or depression. No insomnia. Vital Signs: Performed on Sep 30, 2019 10:30 Height - 65.00 in Weight - 168.4 lbs (HIGH) BSA - 1.84 sq.m BMI - 28.02 Temperature - 97.8 F (LOW) Pulse - 66 /min Respiration - 18 /min BP - 128/61 mm(hg) O2 Sat - 96 % Pain - 6 Physical Examination: Constitutional - He looks a little better generally, Eyes - Sclerae nonicteric. Conjunctivae clear, ENMT - There are no lesions noted in the oral cavity, Hematologic/Lymphatic - No cervical, clavicular, or axillary adenopathy, Respiratory - Lungs sound clear with some decrease in air movement bilaterally, Cardiovascular - Heart rhythm is regular. There is no murmur, gallop, or rub noted, Abdomen - Soft and non-tender. Liver and spleen are not enlarged. There is no abdominal mass or ascites noted and there is no inguinal adenopathy, Extremities - No edema, Neurologic - He has mild residual expressive aphasia. He has some postural instability. There are no sensory or motor deficits noted. Lab/Imaging: Test performed on Aug 08, 2019 13:06 Sodium 140 mmol/L Potassium 4.6 mmol/L Chloride 101 mmol/L CO2 28 mmol/L Anion Gap 15.6 BUN 19 mg/dL Creatinine 1.0 mg/dL Cr Clearance (Est) 67.5500 mL/min Glucose 170 mg/dL Calcium 10.3 mg/dL Protein, Total 7.3 g/dL Albumin 4.2 g/dL Globulin 3.1 g/dL Bilirubin, Total 1.3 mg/dL ALT (SGPT) 25 U/L AST (SGOT) 19 U/L Alkaline Phosphatase 62 IU/L WBC 6.0 10 3/uL RBC 5.17 10 6/uL HGB 15.7 g/dL HCT 46.6 % MCV 90.1 fL MCH 30.4 pg MCHC 33.7 g/dL RDW 13.4 % Platelet Count 118 10 3/cmm MPV 10.8 fL Neutrophils 3.9 10 3/uL Lymphocytes 1.2 10 3/uL Monocytes 0.5 10 3/uL Eosinophils 0.4 10 3/uL Basophils 0.1 10 3/uL Neutrophil % 64.8 % Lymphocyte % 19.3 % Monocyte % 8.4 % Eosinophil % 6.2 % Basophils % 1.0 % Test performed on Jul 14, 2019 13:56 Manual Lymphocytes 17.2 % Manual Monocytes 10.0 % Manual Eosinophils 3.6 % Manual Basophils 0.2 % Impression: 1. Patient with nonsmall cell cancer (low-grade adenocarcinoma) involving the upper lobe of the right lung, stage IB (T2a, N0, M0). 2. He underwent right upper lobectomy with mediastinal lymph node biopsy on 04/29/2017. 3. He has hereditary hemochromatosis. He was found to be doubly heterozygous for the C282Y and the H63D mutations. He has had a very good response to phlebotomy, with his subsequent ferritin levels maintained at less than 50 ng/mL compared to a pretreatment level of greater than 600. 4. He has underlying lung disease including COPD and obstructive sleep apnea, and he has associated chronic hypoxia. 5. 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 His other medical illnesses include: 6. Hypertension. 7. Hyperlipidemia. 8. Type II diabetes. 9. Coronary artery disease. 10. Peripheral arterial disease. 11. Degenerative arthritis. In January 2019 he had presented with a deep vein thrombosis of the left arm. It appeared to have been an unprovoked thrombosis. He started anticoagulation with apixaban. His restaging PET/CT on 03/10/2019 showed evidence of a single site of metastatic disease in the form of a lytic bone lesion in the left femoral neck. He underwent prophylactic ORIF of the left hip on 03/17/2019. Pathology confirmed metastatic adenocarcinoma. Following recovery from the surgery, he was seen by Dr. Boggs for palliative radiation. He completed treatment on 04/18/2019 to a total dose of 3900 cGy. During that time, he had additional pathologic evaluation with the next generation sequencing study on his primary lung tumor. It showed low PD-L1 expression at 7%. The mutation burden was high. There were no actionable mutations identified. His restaging CT scans on 06/01/2019 showed no evidence for recurrent disease in the chest, abdomen, or pelvis. In the setting of a treated, solitary metastasis, he was recommended to continue on observation/expectant management. He continued anticoagulation with apixaban. On 07/04/2019 he was admitted to the hospital with multiple cerebral infarcts. I had suspected that it was another manifestation of cancer related hypercoagulability. As it occurred while on a therapeutic dosage of apixaban, his anticoagulation had been transitioned to Lovenox. He was initially transferred to [facility] jail for further rehabilitation, but he subsequently was able to return home. His restaging CT scans of the chest, abdomen, and pelvis on 07/25/2019 showed no obvious progression of the lung cancer. He had then opted to stop the Lovenox injections and restart anticoagulation with apixaban. He also was taking Plavix. He had subsequently developed further decline in cognitive function. His repeat brain MRI on 08/23/2019 showed areas of enhancement which were suspicious for worsening subacute infarcts. There were additional small enhancing lesions which were suspicious for metastases. With those findings his anticoagulation was transitioned back to Lovenox. A repeat PET/CT on 09/01/2019 showed a new small metastatic lesion in the right proximal femur. There was residual activity at the site of the metastatic lesion in the left femur. There were no other areas of abnormal activity noted on that study. He was then given palliative radiation to the right hip, completed on 09/28/2019 to a total dose of 3000 cGy. His repeat brain MRI on 09/16/2019 continued to show evidence of bilateral multilobar acute lacunar infarcts, but there was no convincing evidence for metastatic disease. At this point he continues to have significant pain in the groin area bilaterally, which I assume is related to the hip joints. He has somewhat limited activity, but his overall clinical status appears stable. Plan: I reviewed options for further management of the lung cancer. He is advised that with no further treatment his disease will progress, the how quickly the I will have been cannot be predicted. We also discussed the fact that any further treatment will be palliative. With low positive PD-L1 expression the treatment which would have the highest response rate would be a standard chemotherapy regimen in combination with immunotherapy. I reviewed potential side effects with the chemotherapy, which would potentially be very significant. A second option, but with a lower potential benefit, would be immunotherapy alone. I think that would be a very reasonable option for him, as the risk for significant toxicities would be relatively low. The final option is to just continue with symptomatic/supportive care. Based on my discussion with the patient and his , it is quite clear that he would not want to take the risk of chemotherapy related toxicities. He may be willing to consider the immunotherapy by itself, and I am going to give him some additional time to discuss that with his . In the meantime, he will continue Lovenox at a therapeutic dosage. He will continue hydrocodone/APAP as needed. I suggested that he also try a few doses of ibuprofen, and if that is helping I will then put him on a regular dosage of meloxicam. Signed By: Shorty Chadwick M.D. <<Signature on File>>
== END 2019-10-20 23:59 | disposition home or self-care (01) ==
LOC: ONCMED 06:39
PROVIDERS: Family Provider Nurse Practitioner Family; PCP Nurse Practitioner Family; Visit Provider Internal Medicine Medical Oncology
DX: Z51.0 Encounter for antineoplastic radiation therapy (principal); C79.51 Secondary malignant neoplasm of bone; C34.11 Malignant neoplasm of upper lobe, right bronchus or lung; E83.110 Hereditary hemochromatosis; J44.9 Chronic obstructive pulmonary disease, unspecified; G47.33 Obstructive sleep apnea (adult) (pediatric); R09.02 Hypoxemia; D75.1 Secondary polycythemia; I10 Essential (primary) hypertension; E78.5 Hyperlipidemia, unspecified; E11.9 Type 2 diabetes mellitus without complications; I25.10 Atherosclerotic heart disease of native coronary artery without angina pectoris; I73.9 Peripheral vascular disease, unspecified; M19.90 Unspecified osteoarthritis, unspecified site; Z86.718 Personal history of other venous thrombosis and embolism
CPT/HCPCS: 77336; 77412; 99214

== ENCOUNTER → 2019-10-19 10:01 | Outpatient (BNVA) | payer MEDICARE, SELFPAY | PROVIDERS: Family Provider Nurse Practitioner Family; PCP Nurse Practitioner Family; Referring Provider Nurse Practitioner Family; Visit Provider Specialist | DX: G31.84 Mild cognitive impairment of uncertain or unknown etiology (principal); C34.90 Malignant neoplasm of unspecified part of unspecified bronchus or lung; Z87.891 Personal history of nicotine dependence; Z86.73 Personal history of transient ischemic attack (TIA), and cerebral infarction without residual deficits | CPT/HCPCS: 99205 ==

== ENCOUNTER 2019-11-09 06:50 | Outpatient (RCR) | payer MEDICARE, SELFPAY ==
--- NOTE | 2019-10-30 11:44 | ONC FU_ITS ---
Dr. Chadwick Patient Follow-Up Note Patient: Lynnette Sevilla Unit #: [id number]: 1940 Dicatated By: Shorty Chadwick M.D.Date of Visit:October 27, 2019 Onc Med Follow-up/Prog Note Chief Complaint: Hemochromatosis/lung cancer. 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 His disease was stage IB (T2a, N0, M0) at initial diagnosis, but with subsequent progression to stage TIGIST (M1b). He also has hereditary hemochromatosis. In February [address] Tyler with persistent cough. His evaluation included chest CT on 03/04/2017. It showed a spiculated density in the medial aspect of the anterior segment of the right upper lobe. It measured 1.8 x 2.4 x 1.8 cm and it was new compared to a previous study from November 2013. There was no associated mediastinal or hilar adenopathy, and there was no evidence of liver or adrenal metastases. He underwent bronchoscopy on 04/06/2017. There were no endobronchial lesions identified. The lesion was found to be avid by PET/CT. There was no evidence of metastatic involvement. He underwent right upper lobectomy with mediastinal lymph node biopsy on 04/29/2017. Pathology showed low-grade (grade 1-2) adenocarcinoma measuring 3.2 x 2.4 cm. There was penetration into visceral pleura and there was evidence of lymphovascular space invasion. The margins of resection were free, and there was no involvement in 1 mediastinal lymph node, in 1 lymph node at the right mainstem bronchus, and in 2 hilar lymph nodes. He has continued on observation/expectant management following the surgery, as there appeared to be no indication for adjuvant chemotherapy. I had initially seen him in October 2012 in regard to elevated hemoglobin/hematocrit levels and elevated serum iron. His evaluation at that time showed his hemoglobin elevated at 18.1 g with hematocrit 52%. White count and platelet count were normal. The serum iron was in the upper normal range at 145 mcg/dL with transferrin saturation 30.8%. The serum ferritin, though, was elevated at 606 ng/mL. He had additional evaluation including an erythropoietin level which was in the normal range at 12 mIU/mL. A MICHAEL 2 gene mutation study was negative. The HFE gene analysis showed double heterozygosity for the C282Y and the H63D mutations, consistent with hereditary hemochromatosis. He has been managed on a phlebotomy program. His other medical illnesses include hypertension, hyperlipidemia, type 2 diabetes, coronary artery disease, peripheral vascular disease, and degenerative arthritis. He underwent coronary artery bypass surgery in 1996 and he underwent an arterial bypass procedure to the right leg in 1999. In 2013 he was found to have significant hypoxemia. On evaluation he was found to have COPD and obstructive sleep apnea. 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 Also noted was calcific plaque at the origins of the common iliac arteries at 54% on the left and 60% on the right. He has a history of smoking 1-1 1/2 packs of cigarettes daily, but he quit smoking in 1996. INTERIM HISTORY: Surveillance chest CT on 12/07/2018 showed stable postoperative changes from prior right upper lobectomy. There was long-term stability of left upper lower lobe nodules. There was chronic emphysema. There was no evidence for recurrent or metastatic neoplastic process. He continued observation/expectant management for the lung cancer. He had then presented to Dr. Tyler's office with swelling and redness in the left arm, in the area of the antecubital fossa. Venous Doppler of the left arm on 02/11/2019 showed extensive occlusive thrombus in the left basilic vein. All other veins of the left upper extremity appeared free of thrombus. He was started on anticoagulation with apixaban. He was seen here for follow-up on 02/25/2019. He then had a restaging PET/CT on 03/10/2019. It showed interval development of abnormal activity in a lytic lesion in the left femoral neck, suspicious for metastatic disease. There was interval resolution of the small right upper lobe lung mass. There were no other areas of abnormal uptake on that study. With those findings, he was referred to Dr. Chin. On 03/17/2019 he underwent prophylactic open reduction with interval fixation of the left hip. Pathology on the bone fragments did confirm metastatic carcinoma consistent with the previous diagnosis of pulmonary infiltrating adenocarcinoma. Following recovery from the surgery he was seen by Dr. Boggs for palliative radiation. He completed treatment on 04/18/2019 to a total dose of 3900 cGy. He tolerated the treatment well. In the meantime, I had also requested a next generation sequencing study. It was performed on the original lung tumor, as the specimen from the left femur was insufficient for analysis. That study showed low PD-L1 expression at 7%. The mutation burden, though, was high. The tumor was negative for EGFR, BRAF, and KRAS mutations, and it also tested negative for the ALK and ROS1 rearrangements. The NTRK fusion also was not detected. I had seen him for a follow-up visit on 05/02/2019. He had restaging CT scans on 06/01/2019 showed no evidence for recurrent disease in the chest, abdomen, or pelvis. In the setting of a treated, solitary metastasis, he was recommended to continue on observation/expectant management. On 06/28/2019 he was seen in the emergency room with complaints of dizziness. CT of the head with and without contrast showed no acute findings. He was diagnosed with vestibular neuronitis. On 07/04/2019 he was admitted to the hospital after returning to the emergency room with acute mental status changes. His repeat head CT showed a 10 mm focal area of low-attenuation in the left frontal lobe which appeared new from the recent study. Was felt to possibly represent a subacute infarct. Further evaluation with brain MRI showed multifocal patchy areas of acute ischemia involving the YUNG territories bilaterally. The largest area of ischemia measured approximately 1 cm. There was no evidence of mass-effect or midline shift. The clinical presentation appeared most consistent with cancer related hypercoagulability. As it occurred while on a therapeutic dose of apixaban, his anticoagulation was transitioned to therapeutic Lovenox. His echocardiogram showed normal left ventricular cavity size and systolic function with estimated ejection fraction at 60%. There were no significant valvular abnormalities noted. There appeared to be no significant change compared to her previous study from July 2018. His bilateral carotid Doppler studies showed just moderate atheromatous plaque bilaterally. Head MRA showed no evidence of high-grade proximal stenosis or aneurysm. He was discharged to [facility] for rehab. At that point, he was still having significant expressive aphasia, but his confusion had improved significantly. He subsequently was able to return home. Restaging CT scans of the chest, abdomen, and pelvis on 07/25/2019 showed stable 5 mm noncalcified pulmonary nodule in the left upper lobe and a 3 mm noncalcified nodule in the left lower lobe. There was no mediastinal or hilar adenopathy. A few scattered hypodensities throughout the liver are too small to characterize but similar to prior studies. A new 7 mm hypodensity was noted in the lower pole of the right kidney. There was increased density within the lumen of a contracted gallbladder, suspicious for stones and/or chronic cholecystitis. There was no osteoblastic or osteolytic bone disease identified. On 08/03/2019 he was seen in the emergency room with dizziness. He has repeat noncontrast head CT showed atrophy and chronic deep white matter ischemic change with no acute intracranial abnormality identified. He was diagnosed with vertigo and treated with meclizine. I had seen him for a follow-up visit on 08/08/2019. He had opted to stop the Lovenox injections, and he had restarted anticoagulation with apixaban. He also was taking Plavix. He was still having some difficulty with his speech and he was having some confusion at times and some difficulty with memory. Subsequent to that visit, his had called and reported that his memory and confusion were continuing to worsen. A repeat brain MRI on 08/23/2019 showed multifocal areas of abnormal diffusion abnormalities and flair signal abnormalities. It was noted to predominantly involve the left hippocampal formation with additional more focal diffusion signal abnormalities extending towards the temporal occipital junction posteriorly. That finding appeared to be most consistent with worsening subacute infarcts. Also noted, though, were additional cortical areas of very subtle enhancement throughout the brain which were suspicious for metastatic lesions. The most concerning were in the left frontal vertex. With those findings, I was able to get his anticoagulation transition back to Lovenox. A repeat PET/CT on 09/01/2019 showed interval development of a small well-circumscribed lytic lesion in the upper femoral neck on the right measuring up to 19 mm with SUV 7.3. A small amount of fracture was noted along the posterior upper border of the left greater trochanter. Abnormal increased activity was noted along the site of the previous suspected metastatic lesion in the left femoral neck with a maximum SUV 6.2, similar to the previous study. There were no other areas of significant abnormal activity identified. Given the PET/CT findings, he was then given palliative radiation to the right hip, completed on 09/28/2019 to a total dose of 3000 cGy. He tolerated the treatment well. In the meantime, a repeat brain MRI on 09/16/2019 again showed numerous bilateral multi lobar acute lacunar infarcts. The previously described areas of enhancement are felt to most likely be related to ischemia and not to metastatic disease. At that time there was felt to be no convincing evidence for metastatic disease. I had seen him for a follow-up visit on 03/2020. At that point he was beginning to show some recovery. I had discussed options for further treatment of the lung cancer. It was quite clear that he was not interested in attempting any chemotherapy. He was willing to at least consider immunotherapy, but was undecided. He did agree to continue anticoagulation with Lovenox. He is seen for a follow-up visit. He has been feeling all right. His overall condition has improved. He still has somewhat limited activity, but he is able to do some light work outside. His ECOG score is 1. His indicates that his memory is much better now and that he is no longer having confusion. He has good appetite. He has no fever or night sweats. He has some shortness of breath, but his breathing is generally okay. He does not complain of cough, and he has not been having chest pain. He has no GI/ complaints other than frequent urination. He has having hip pain, particularly when he first gets up to walk. He has no other joint or bone pain. He still does have some dizziness/balance issues. He does not complain of headache, and he has no focal neurologic symptoms. Medications: Acetaminophen Extra Strength 1 (500 mg) Tablet Oral b.i.d., amLODIPine Besylate 1 Tablet (of 2.5 mg) Oral daily, Atorvastatin Calcium 1 Tablet (of 20 mg) Oral daily, B-12 1 Tablet (of 1000 mcg) Tablet Oral daily, Bisacodyl 1 Tablet (of 5 mg) Tablet, enteric coated Oral daily PRN, Carvedilol 1 (25 mg) Tablet Oral b.i.d., Cetirizine HCl 1 Tablet (of 10 mg) Oral daily, Cholecalciferol 1 Capsule (of 2000 Units) Oral daily, [employer] Mucus Extended Release 1 Tablet (of 600 mg) Tablet SR 12 HR Oral daily PRN, Docusate Sodium 1 Tablet (of 100 mg) Oral daily, Dulcolax Milk of Magnesia 30 mL (of 400 mg/5mL) Suspension Oral daily PRN, Enoxaparin Sodium 80 mg (of 300 mg/3mL) Injection b.i.d., Famotidine 1 Tablet (of 20 mg) Tablet Oral b.i.d., Fish Oil 1 (1200 mg) Capsule Oral daily, Flonase Suspension Nasal, Gabapentin 1 Tablet (of 300 mg) Oral daily, Jardiance 0.5 Tablet (of 12.5 ) Oral daily, Lovastatin 1 Tablet (of 40 mg) Oral b.i.d., Meclizine HCl 1 Tablet (of 25 mg) Oral daily PRN, MetFORMIN HCl 2 Tablet (of 500 mg) Oral b.i.d., Plavix 1 (75 mg) Tablet Oral daily, Spiriva Respimat Aerosol, solution Inhalation, Tamsulosin HCl 1 (0.4 mg) Capsule Oral daily Allergies: PENICILLIN AND ALEVE Review of Systems: Constitutional - He is feeling good. He is doing some light outside work. His appetite is good and weight is up a few pounds. No fever, chills, hot flashes, or night sweats. ECOG score is 1, ENMT - No sinus congestion/drainage. No mouth sores. No sore throat or difficulty swallowing, Hematologic/Lymphatic - No abnormal bruising or bleeding, Respiratory - He has some shortness of breath, but his breathing is okay. No cough. No pleuritic pain or hemoptysis, Cardiovascular - No angina pain. No palpitations, Gastrointestinal - No nausea or vomiting. No heartburn or acid reflux. No diarrhea or constipation. No blood in the stool or black stools, Genitourinary (M) - No dysuria or hematuria. He has urinary frequency. No urgency or incontinence, Musculoskeletal - He has pain in his hips. His pain is adequately managed with hydrocodone/APAP 5-325mg, Integumentary - No skin complications, Neurologic - No headaches. He has some dizziness. No numbness/paresthesias or other focal neurologic symptoms. He still has some difficulty with speech, but it has improved. His memory loss/confusion also have improved, Psychiatric - No anxiety or depression. No insomnia. Vital Signs: Performed on October 27, 2019 16:17 Height - 65.00 in Weight - 172.2 lbs (HIGH) BSA - 1.86 sq.m BMI - 28.66 Temperature - 97.9 F (LOW) Pulse - 68 /min Respiration - 24 /min BP - 134/63 mm(hg) O2 Sat - 94 % (LOW) Pain - 2 Physical Examination: Constitutional - He looks pretty good generally, Eyes - Sclerae nonicteric. Conjunctivae clear, ENMT - There are no lesions noted in the oral cavity, Hematologic/Lymphatic - No cervical, clavicular, or axillary adenopathy, Respiratory - Lungs sound clear with some decrease in air movement bilaterally, Cardiovascular - Heart rhythm is regular. There is no murmur, gallop, or rub noted, Abdomen - Soft. Liver and spleen are not enlarged. There is no abdominal mass or ascites noted and there is no inguinal adenopathy, Extremities - No edema. He has a few scattered purpuric lesions, Neurologic - He has just mild residual expressive aphasia. There are no sensory or motor deficits noted. Impression: 1. Patient with nonsmall cell cancer (low-grade adenocarcinoma) involving the upper lobe of the right lung, stage IB (T2a, N0, M0). 2. He underwent right upper lobectomy with mediastinal lymph node biopsy on 04/29/2017. 3. He has hereditary hemochromatosis. He was found to be doubly heterozygous for the C282Y and the H63D mutations. He has had a very good response to phlebotomy, with his subsequent ferritin levels maintained at less than 50 ng/mL compared to a pretreatment level of greater than 600. 4. He has underlying lung disease including COPD and obstructive sleep apnea, and he has associated chronic hypoxia. 5. 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 His other medical illnesses include: 6. Hypertension. 7. Hyperlipidemia. 8. Type II diabetes. 9. Coronary artery disease. 10. Peripheral arterial disease. 11. Degenerative arthritis. In January 2019 he had presented with a deep vein thrombosis of the left arm. It appeared to have been an unprovoked thrombosis. He started anticoagulation with apixaban. His restaging PET/CT on 03/10/2019 showed evidence of a single site of metastatic disease in the form of a lytic bone lesion in the left femoral neck. He underwent prophylactic ORIF of the left hip on 03/17/2019. Pathology confirmed metastatic adenocarcinoma. Following recovery from the surgery, he was seen by Dr. Boggs for palliative radiation. He completed treatment on 04/18/2019 to a total dose of 3900 cGy. During that time, he had additional pathologic evaluation with the next generation sequencing study on his primary lung tumor. It showed low PD-L1 expression at 7%. The mutation burden was high. There were no actionable mutations identified. His restaging CT scans on 06/01/2019 showed no evidence for recurrent disease in the chest, abdomen, or pelvis. In the setting of a treated, solitary metastasis, he was recommended to continue on observation/expectant management. He continued anticoagulation with apixaban. On 07/04/2019 he was admitted to the hospital with multiple cerebral infarcts. I had suspected that it was another manifestation of cancer related hypercoagulability. As it occurred while on a therapeutic dosage of apixaban, his anticoagulation had been transitioned to Lovenox. He was initially transferred to [facility] for further rehabilitation, but he subsequently was able to return home. His restaging CT scans of the chest, abdomen, and pelvis on 07/25/2019 showed no obvious progression of the lung cancer. He had then opted to stop the Lovenox injections and restart anticoagulation with apixaban. He also was taking Plavix. He had subsequently developed further decline in cognitive function. His repeat brain MRI on 08/23/2019 showed areas of enhancement which were suspicious for worsening subacute infarcts. There were additional small enhancing lesions which were suspicious for metastases. With those findings his anticoagulation was transitioned back to Lovenox. A repeat PET/CT on 09/01/2019 showed a new small metastatic lesion in the right proximal femur. There was residual activity at the site of the metastatic lesion in the left femur. There were no other areas of abnormal activity noted on that study. He was then given palliative radiation to the right hip, completed on 09/28/2019 to a total dose of 3000 cGy. His repeat brain MRI on 09/16/2019 continued to show evidence of bilateral multilobar acute lacunar infarcts, but there was no convincing evidence for metastatic disease. He has since then continued anticoagulation with Lovenox, and there has been gradual improvement in his neurologic symptoms and in his performance status. He continues to have some hip pain, mainly when he first gets up to walk. Plan: As before, he is not interested in attempting any chemotherapy, but he is agreeable to a trial of immunotherapy. As such, I will begin the process of getting approval for a trial of therapy with pembrolizumab. I did review potential side effects, most of which are immune related. Signed By: Shorty Chadwick M.D. <<Signature on File>>
[2019-11-09 13:40] LABS: Basophils # 0.1 10^3/uL (0.0-0.1); Eosinophils # 0.3 10^3/uL (0.0-0.8); Eosinophils % 6.4 %; Hematocrit 48.6 % (42.0-52.0); Hemoglobin 16.5 g/dL (11.7-16.6); Lymphocytes # 0.9 10^3/uL (0.8-4.8); Mean Corpuscular Hemoglobin 30.4 pg (28.0-34.0); Mean Corpuscular Volume 89.7 fL (80-94); Mean Platelet Volume 9.8 fL (7.4-10.4); Monocytes # 0.5 10^3/uL (0.2-0.9); Monocytes % 8.7 %; Neutrophils # 3.4 10^3/uL (1.8-7.7); Neutrophils % 65.5 %; Nucleated Red Blood Cells % 0 %; Platelet Count 219 10^3/cmm (130-400); Red Blood Count 5.42 10^6/uL (4.1-5.3); Red Cell Distribution Width 12.7 % (12.1-15.1); White Blood Count 5.2 10^3/uL (4.0-10.0)
[2019-11-09] MEDS: sodium chloride 0.9% (100 ml) 100 ML 45 ML (14:10)
[2019-11-09 14:14] LABS: Alanine Aminotransferase 14 U/L (0-41); Albumin Level 4.5 g/dL (3.5-5.2); Alkaline Phosphatase 47 IU/L (40-130); Anion Gap 19.3 (5-19); Aspartate Amino Transferase 12 U/L (0-40); Blood Urea Nitrogen 23 mg/dL (8-23); Calcium 10.4 mg/dL (8.5-10.5); Carbon Dioxide 22 mmol/L (22-29); Chloride 100 mmol/L (98-107); Globulin 2.7 g/dL (1.3-4.6); Glucose 221 mg/dL (65-115); Osmolality Calculated 288 mOsm/kg (285-295); Potassium 4.3 mmol/L (3.5-5.1); Sodium 137 mmol/L (136-145); Thyroid Stimulating Hormone 1.63 uIU/mL (0.27-4.20); Total Bilirubin 0.6 mg/dL (0.15-1.2); Total Protein 7.2 g/dL (6.6-8.7)
== END 2019-11-20 23:59 | disposition home or self-care (01) ==
LOC: ONCMED 06:50
PROVIDERS: PCP Nurse Practitioner Family; Visit Provider Internal Medicine Medical Oncology
DX: Z51.12 Encounter for antineoplastic immunotherapy (principal); C34.11 Malignant neoplasm of upper lobe, right bronchus or lung; C79.51 Secondary malignant neoplasm of bone; E83.110 Hereditary hemochromatosis; I82.622 Acute embolism and thrombosis of deep veins of left upper extremity; R09.02 Hypoxemia; I25.10 Atherosclerotic heart disease of native coronary artery without angina pectoris; I10 Essential (primary) hypertension; E78.5 Hyperlipidemia, unspecified; I73.9 Peripheral vascular disease, unspecified; E11.9 Type 2 diabetes mellitus without complications; Z79.899 Other long term (current) drug therapy
CPT/HCPCS: 80053; 84443; 85025; 96413; 99214; J7050; J9271

== ENCOUNTER 2019-11-30 07:26 | Outpatient (RCR) | payer MEDICARE, SELFPAY ==
[2019-11-30 12:01] LABS: Basophils # 0.1 10^3/uL (0.0-0.1); Eosinophils # 0.5 10^3/uL (0.0-0.8); Eosinophils % 8.3 %; Hematocrit 47.9 % (42.0-52.0); Hemoglobin 16.3 g/dL (11.7-16.6); Lymphocytes # 1.1 10^3/uL (0.8-4.8); Lymphocytes % 18.1 %; Mean Corpuscular Hemoglobin 30.4 pg (28.0-34.0); Mean Corpuscular Volume 89.2 fL (80-94); Mean Platelet Volume 9.5 fL (7.4-10.4); Monocytes # 0.6 10^3/uL (0.2-0.9); Monocytes % 8.9 %; Neutrophils % 63.2 %; Nucleated Red Blood Cells % 0 %; Platelet Count 232 10^3/cmm (130-400); Red Blood Count 5.37 10^6/uL (4.1-5.3); Red Cell Distribution Width 13.4 % (12.1-15.1); White Blood Count 6.3 10^3/uL (4.0-10.0)
[2019-11-30 12:11] LABS: Alanine Aminotransferase 13 U/L (0-41); Albumin Level 4.2 g/dL (3.5-5.2); Alkaline Phosphatase 46 IU/L (40-130); Anion Gap 18.2 (5-19); Aspartate Amino Transferase 13 U/L (0-40); Blood Urea Nitrogen 17 mg/dL (8-23); Calcium 10.4 mg/dL (8.5-10.5); Carbon Dioxide 25 mmol/L (22-29); Chloride 99 mmol/L (98-107); Glucose 148 mg/dL (65-115); Osmolality Calculated 285 mOsm/kg (285-295); Potassium 4.2 mmol/L (3.5-5.1); Sodium 138 mmol/L (136-145); Total Bilirubin 0.7 mg/dL (0.15-1.2); Total Protein 7.2 g/dL (6.6-8.7)
--- NOTE | 2019-12-04 23:49 | ONC FU_ITS ---
Manjinder Pimentel Patient Note Patient: Lynnette Sevilla Unit #: [id number]: [id number] Dictated By: Brian LovellDate of Visit: Nov 30, 2019 Onc MED Follow-Up/Prog Note Chief Complaint: Hemochromatosis/lung cancer. 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 His disease was stage IB (T2a, N0, M0) at initial diagnosis, but with subsequent progression to stage TIGIST (M1b). He also has hereditary hemochromatosis. In February [address] Tyler with persistent cough. His evaluation included chest CT on 03/04/2017. It showed a spiculated density in the medial aspect of the anterior segment of the right upper lobe. It measured 1.8 x 2.4 x 1.8 cm and it was new compared to a previous study from November 2013. There was no associated mediastinal or hilar adenopathy, and there was no evidence of liver or adrenal metastases. He underwent bronchoscopy on 04/06/2017. There were no endobronchial lesions identified. The lesion was found to be avid by PET/CT. There was no evidence of metastatic involvement. He underwent right upper lobectomy with mediastinal lymph node biopsy on 04/29/2017. Pathology showed low-grade (grade 1-2) adenocarcinoma measuring 3.2 x 2.4 cm. There was penetration into visceral pleura and there was evidence of lymphovascular space invasion. The margins of resection were free, and there was no involvement in 1 mediastinal lymph node, in 1 lymph node at the right mainstem bronchus, and in 2 hilar lymph nodes. He has continued on observation/expectant management following the surgery, as there appeared to be no indication for adjuvant chemotherapy. Dr Chadwick had initially seen him in October 2012 in regard to elevated hemoglobin/hematocrit levels and elevated serum iron. His evaluation at that time showed his hemoglobin elevated at 18.1 g with hematocrit 52%. White count and platelet count were normal. The serum iron was in the upper normal range at 145 mcg/dL with transferrin saturation 30.8%. The serum ferritin, though, was elevated at 606 ng/mL. He had additional evaluation including an erythropoietin level which was in the normal range at 12 mIU/mL. A MICHAEL 2 gene mutation study was negative. The HFE gene analysis showed double heterozygosity for the C282Y and the H63D mutations, consistent with hereditary hemochromatosis. He has been managed on a phlebotomy program. His other medical illnesses include hypertension, hyperlipidemia, type 2 diabetes, coronary artery disease, peripheral vascular disease, and degenerative arthritis. He underwent coronary artery bypass surgery in 1996 and he underwent an arterial bypass procedure to the right leg in 1999. In 2013 he was found to have significant hypoxemia. On evaluation he was found to have COPD and obstructive sleep apnea. 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 Also noted was calcific plaque at the origins of the common iliac arteries at 54% on the left and 60% on the right. He has a history of smoking 1-1 1/2 packs of cigarettes daily, but he quit smoking in 1996. INTERIM HISTORY: Surveillance chest CT on 12/07/2018 showed stable postoperative changes from prior right upper lobectomy. There was long-term stability of left upper lower lobe nodules. There was chronic emphysema. There was no evidence for recurrent or metastatic neoplastic process. He continued observation/expectant management for the lung cancer. He had then presented to Dr. Tyler's office with swelling and redness in the left arm, in the area of the antecubital fossa. Venous Doppler of the left arm on 02/11/2019 showed extensive occlusive thrombus in the left basilic vein. All other veins of the left upper extremity appeared free of thrombus. He was started on anticoagulation with apixaban. He was seen here for follow-up on 02/25/2019. He then had a restaging PET/CT on 03/10/2019. It showed interval development of abnormal activity in a lytic lesion in the left femoral neck, suspicious for metastatic disease. There was interval resolution of the small right upper lobe lung mass. There were no other areas of abnormal uptake on that study. With those findings, he was referred to Dr. Chin. On 03/17/2019 he underwent prophylactic open reduction with interval fixation of the left hip. Pathology on the bone fragments did confirm metastatic carcinoma consistent with the previous diagnosis of pulmonary infiltrating adenocarcinoma. Following recovery from the surgery he was seen by Dr. Boggs for palliative radiation. He completed treatment on 04/18/2019 to a total dose of 3900 cGy. He tolerated the treatment well. In the meantime, Dr Chadwick had also requested a next generation sequencing study. It was performed on the original lung tumor, as the specimen from the left femur was insufficient for analysis. That study showed low PD-L1 expression at 7%. The mutation burden, though, was high. The tumor was negative for EGFR, BRAF, and KRAS mutations, and it also tested negative for the ALK and ROS1 rearrangements. The NTRK fusion also was not detected. Dr Chadwick had seen him for a follow-up visit on 05/02/2019. He had restaging CT scans on 06/01/2019 showed no evidence for recurrent disease in the chest, abdomen, or pelvis. In the setting of a treated, solitary metastasis, he was recommended to continue on observation/expectant management. On 06/28/2019 he was seen in the emergency room with complaints of dizziness. CT of the head with and without contrast showed no acute findings. He was diagnosed with vestibular neuronitis. On 07/04/2019 he was admitted to the hospital after returning to the emergency room with acute mental status changes. His repeat head CT showed a 10 mm focal area of low-attenuation in the left frontal lobe which appeared new from the recent study. Was felt to possibly represent a subacute infarct. Further evaluation with brain MRI showed multifocal patchy areas of acute ischemia involving the YUNG territories bilaterally. The largest area of ischemia measured approximately 1 cm. There was no evidence of mass-effect or midline shift. The clinical presentation appeared most consistent with cancer related hypercoagulability. As it occurred while on a therapeutic dose of apixaban, his anticoagulation was transitioned to therapeutic Lovenox. His echocardiogram showed normal left ventricular cavity size and systolic function with estimated ejection fraction at 60%. There were no significant valvular abnormalities noted. There appeared to be no significant change compared to her previous study from July 2018. His bilateral carotid Doppler studies showed just moderate atheromatous plaque bilaterally. Head MRA showed no evidence of high-grade proximal stenosis or aneurysm. He was discharged to [facility] for rehab. At that point, he was still having significant expressive aphasia, but his confusion had improved significantly. He subsequently was able to return home. Restaging CT scans of the chest, abdomen, and pelvis on 07/25/2019 showed stable 5 mm noncalcified pulmonary nodule in the left upper lobe and a 3 mm noncalcified nodule in the left lower lobe. There was no mediastinal or hilar adenopathy. A few scattered hypodensities throughout the liver are too small to characterize but similar to prior studies. A new 7 mm hypodensity was noted in the lower pole of the right kidney. There was increased density within the lumen of a contracted gallbladder, suspicious for stones and/or chronic cholecystitis. There was no osteoblastic or osteolytic bone disease identified. On 08/03/2019 he was seen in the emergency room with dizziness. He has repeat noncontrast head CT showed atrophy and chronic deep white matter ischemic change with no acute intracranial abnormality identified. He was diagnosed with vertigo and treated with meclizine. Dr Chadwick had seen him for a follow-up visit on 08/08/2019. He had opted to stop the Lovenox injections, and he had restarted anticoagulation with apixaban. He also was taking Plavix. He was still having some difficulty with his speech and he was having some confusion at times and some difficulty with memory. Subsequent to that visit, his had called and reported that his memory and confusion were continuing to worsen. A repeat brain MRI on 08/23/2019 showed multifocal areas of abnormal diffusion abnormalities and flair signal abnormalities. It was noted to predominantly involve the left hippocampal formation with additional more focal diffusion signal abnormalities extending towards the temporal occipital junction posteriorly. That finding appeared to be most consistent with worsening subacute infarcts. Also noted, though, were additional cortical areas of very subtle enhancement throughout the brain which were suspicious for metastatic lesions. The most concerning were in the left frontal vertex. With those findings, Dr Chadwick was able to get his anticoagulation transition back to Lovenox. A repeat PET/CT on 09/01/2019 showed interval development of a small well-circumscribed lytic lesion in the upper femoral neck on the right measuring up to 19 mm with SUV 7.3. A small amount of fracture was noted along the posterior upper border of the left greater trochanter. Abnormal increased activity was noted along the site of the previous suspected metastatic lesion in the left femoral neck with a maximum SUV 6.2, similar to the previous study. There were no other areas of significant abnormal activity identified. Given the PET/CT findings, he was then given palliative radiation to the right hip, completed on 09/28/2019 to a total dose of 3000 cGy. He tolerated the treatment well. In the meantime, a repeat brain MRI on 09/16/2019 again showed numerous bilateral multi lobar acute lacunar infarcts. The previously described areas of enhancement are felt to most likely be related to ischemia and not to metastatic disease. At that time there was felt to be no convincing evidence for metastatic disease. Dr Chadwick had seen him for a follow-up visit on 03/2020. At that point he was beginning to show some recovery. Dr Chadwick had discussed options for further treatment of the lung cancer. It was quite clear that he was not interested in attempting any chemotherapy. He was willing to at least consider immunotherapy after he gave it some thought. He did agree to continue anticoagulation with Lovenox. Mr Sevilla began immunotherapy with pembrolizumab on 11/09/2019. He has tolerated it well thus far. He is here today for followup. He is alone at our visit today due to COVID 19 restrictions. He states overall he is doing well. He states that he thinks he tolerated the first round of immunotherapy well. He denies any fever or chills. He has had no mouth sores, sore throat or difficulty swallowing. He denies any worsening of his shortness of breath. He has had no pain on inspiration. He denies any cough. He denies any hemoptysis. He denies nausea or vomiting. He states his bowels and bladder are normal for him. He states he is eating good. He states he is getting around good and is staying active. He denies any vision changes or headaches. He states he feels good overall and would like to proceed with his treatment today. His ECOG is 1. He is seen for a follow-up visit. He has been feeling all right. His overall condition has improved. He still has somewhat limited activity, but he is able to do some light work outside. His ECOG score is 1. His indicates that his memory is much better now and that he is no longer having confusion. He has good appetite. He has no fever or night sweats. He has some shortness of breath, but his breathing is generally okay. He does not complain of cough, and he has not been having chest pain. He has no GI/ complaints other than frequent urination. He has having hip pain, particularly when he first gets up to walk. He has no other joint or bone pain. He still does have some dizziness/balance issues. He does not complain of headache, and he has no focal neurologic symptoms. Past Medical History: Coronary artery disease Deep vein thrombosis Degenerative arthritis Hyperlipidemia Hypertension Peripheral vascular disease Type II diabetes His medical illnesses include hypertension, hyperlipidemia, type 2 diabetes, coronary artery disease, peripheral vascular disease, and degenerative arthritis. Past Surgical History: Heart by-pass - quadruple bypass Left femoral neck biopsy in 2019 Open reduction internal fixation Left hip-Dr Chin in 2019 Right upper lobectomy with mediastinal lymph node biopsy-Dr Rivers in 2016 He underwent coronary artery bypass surgery in 1996 and an arterial bypass procedure to the right leg in 1999. His only other surgery was an appendectomy in 6. Allergies: PENICILLIN AND ALEVE Medications: Acetaminophen Extra Strength 1 (500 mg) Tablet Oral b.i.d. amLODIPine Besylate 1 Tablet (of 2.5 mg) Oral daily Atorvastatin Calcium 1 Tablet (of 20 mg) Oral daily B-12 1 Tablet (of 1000 mcg) Tablet Oral daily Bisacodyl 1 Tablet (of 5 mg) Tablet, enteric coated Oral daily PRN Carvedilol 1 (25 mg) Tablet Oral b.i.d. Cetirizine HCl 1 Tablet (of 10 mg) Oral daily Cholecalciferol 1 Capsule (of 2000 Units) Oral daily [employer] Mucus Extended Release 1 Tablet (of 600 mg) Tablet SR 12 HR Oral daily PRN Docusate Sodium 1 Tablet (of 100 mg) Oral daily Dulcolax Milk of Magnesia 30 mL (of 400 mg/5mL) Suspension Oral daily PRN Enoxaparin Sodium 80 mg (of 300 mg/3mL) Injection b.i.d. Famotidine 1 Tablet (of 20 mg) Tablet Oral b.i.d. Fish Oil 1 (1200 mg) Capsule Oral daily Flonase Suspension Nasal Gabapentin 1 Tablet (of 300 mg) Oral daily Jardiance 0.5 Tablet (of 12.5 ) Oral daily Lovastatin 1 Tablet (of 40 mg) Oral b.i.d. Meclizine HCl 1 Tablet (of 25 mg) Oral daily PRN MetFORMIN HCl 2 Tablet (of 500 mg) Oral b.i.d. Plavix 1 (75 mg) Tablet Oral daily Spiriva Respimat Aerosol, solution Inhalation Tamsulosin HCl 1 (0.4 mg) Capsule Oral daily Family History: His father following stomach surgery at age 66. His mother had diabetes and with kidney thought here at age 74. A half-brother had alcoholic cirrhosis and as a result of an injury. A sister of leukemia at age 6. 3 other sisters and one brother are still living and in good health. Social History: Mr. Sevilla is and he is retired. Mr. Sevilla quit smoking 16 years ago but had smoked 1.5 packs/day for 23 years. He quit drinking 10 years ago. He has indicated exposure to the following products: cigarettes. Mr. Sevilla reports the following support systems: lives with spouse, significant other, family, or friends, lives in own house, supportive family/friends willing to assist with needs, and adequate transportation available for expected visits. His diet consists of regular meals. He indicates his activity level as: daily activities. He is retired. He had previously smoked up to a pack and a half of cigarettes daily. He quit in 1996. He has had social alcohol use in the past. He has had no alcohol use for at least 10 years or more. Review Of Symptoms: Constitutional Denies fevers, chills, night sweats, excessive fatigue or weight loss. Allergic/Immunologic No reactions. Eyes Denies significant visual changes. No diplopia. No amaurosis. ENMT Denies changes in hearing, sore throat, mouth sores, difficulty or changes in swallowing ability, and/or sinus drainage. Endocrine No diabetes, thyroid disease or hormone replacement. Denies hot flashes or night sweats. Hematologic/Lymphatic Denies easy bruising or bleeding. The patient denies any tender or palpable lymph nodes. Respiratory Denies dyspnea on exertion, chest pain, or hemoptysis. Denies orthopnea. Cardiovascular Denies anginal chest pain, palpitations or orthopnea. Gastrointestinal Denies nausea, vomiting, GI bleeding, or constipation. Denies change in bowel habits and/or stool color, no heartburn or early satiety. Genitourinary (M) Denies hematuria, dysuria, increased frequency, urgency, hesitancy or incontinence. Musculoskeletal Denies joint pain, swelling or redness. No decreased range of motion. Integumentary Denies chronic rashes, inflammation, ulcerations or skin changes. Neurologic Denies headache, blurred vision, and no areas of focal weakness or numbness. Normal gait. No sensory problems. Psychiatric Denies insomnia, depression, giovanni or mood swings. Vital Signs: Performed on Nov 30, 2019 13:08 Height - 65.00 in Weight - 173.8 lbs (HIGH) BSA - 1.86 sq.m BMI - 28.92 Temperature - 96.9 F (LOW) Pulse - 65 /min Respiration - 17 /min BP - 123/65 mm(hg) O2 Sat - 94 % (LOW) Pain - 0,1 - No physically strenuous activity, but ambulatory and able to carry out light or sedentary work (e.g. office work, light house work). (ECOG) Physical Examination: Constitutional Alert, oriented, no acute distress. Skin pink, warm and dry. Somewhat anxious today. Head Normocephalic; atraumatic. Eyes Conjunctivae and sclerae are clear and without icterus. Pupils are reactive and equal. Neck Supple without masses or thyromegaly. No jugular venous distension. Hematologic/Lymphatic No petechiae or purpura. No tender or palpable lymph nodes in the cervical or supraclavicular areas. Respiratory Lungs are clear to auscultation without rhonchi or wheezing. Cardiovascular Regular rate and rhythm of heart without murmurs,clicks, gallops or rubs. Abdomen Non-tender, non-distended, no masses, ascites. Good bowel sounds noted in all quads. No guarding or rebound tenderness. No pulsatile masses. Back/Spine Non-tender to palpation. Extremities No visible deformities, no cyanosis, clubbing or edema. Pulses 4+ and equal bilaterally. Musculoskeletal No tenderness or swelling, normal range of motion without obvious weakness. Integumentary No rashes or lesions. Neurologic No sensory or motor deficits, normal cerebellar function, normal gait. Psychiatric Alert and oriented times three. Coherent speech. Verbalizes understanding of our discussions today. Laboratory:Test performed on Nov 30, 2019 11:30 Sodium 138 mmol/L Potassium 4.2 mmol/L Chloride 99 mmol/L CO2 25 mmol/L Anion Gap 18.2 BUN 17 mg/dL Creatinine 1.1 mg/dL Cr Clearance (Est) 62.71 mL/min Glucose 148 mg/dL Calcium 10.4 mg/dL Protein, Total 7.2 g/dL Albumin 4.2 g/dL Globulin 3.0 g/dL Bilirubin, Total 0.7 mg/dL ALT (SGPT) 13 U/L AST (SGOT) 13 U/L Alkaline Phosphatase 46 IU/L WBC 6.3 10 3/uL RBC 5.37 10 6/uL HGB 16.3 g/dL HCT 47.9 % MCV 89.2 fL MCH 30.4 pg MCHC 34.0 g/dL RDW 13.4 % Platelet Count 232 10 3/cmm MPV 9.5 fL Neutrophils 4.0 10 3/uL Lymphocytes 1.1 10 3/uL Monocytes 0.6 10 3/uL Eosinophils 0.5 10 3/uL Basophils 0.1 10 3/uL Neutrophil % 63.2 % Lymphocyte % 18.1 % Monocyte % 8.9 % Eosinophil % 8.3 % Basophils % 1.0 % NRBC % 0 % Test performed on November 09, 2019 13:05 TSH 1.63 uIU/mL Test performed on Jul 14, 2019 13:56 Manual Lymphocytes 17.2 % Manual Monocytes 10.0 % Manual Eosinophils 3.6 % Manual Basophils 0.2 % Impression: 1. Patient with nonsmall cell cancer (low-grade adenocarcinoma) involving the upper lobe of the right lung, stage IB (T2a, N0, M0). 2. He underwent right upper lobectomy with mediastinal lymph node biopsy on 04/29/2017. 3. He has hereditary hemochromatosis. He was found to be doubly heterozygous for the C282Y and the H63D mutations. He has had a very good response to phlebotomy, with his subsequent ferritin levels maintained at less than 50 ng/mL compared to a pretreatment level of greater than 600. 4. He has underlying lung disease including COPD and obstructive sleep apnea, and he has associated chronic hypoxia. 5. 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 His other medical illnesses include: 6. Hypertension. 7. Hyperlipidemia. 8. Type II diabetes. 9. Coronary artery disease. 10. Peripheral arterial disease. 11. Degenerative arthritis. In January 2019 he had presented with a deep vein thrombosis of the left arm. It appeared to have been an unprovoked thrombosis. He started anticoagulation with apixaban. His restaging PET/CT on 03/10/2019 showed evidence of a single site of metastatic disease in the form of a lytic bone lesion in the left femoral neck. He underwent prophylactic ORIF of the left hip on 03/17/2019. Pathology confirmed metastatic adenocarcinoma. Following recovery from the surgery, he was seen by Dr. Boggs for palliative radiation. He completed treatment on 04/18/2019 to a total dose of 3900 cGy. During that time, he had additional pathologic evaluation with the next generation sequencing study on his primary lung tumor. It showed low PD-L1 expression at 7%. The mutation burden was high. There were no actionable mutations identified. His restaging CT scans on 06/01/2019 showed no evidence for recurrent disease in the chest, abdomen, or pelvis. In the setting of a treated, solitary metastasis, he was recommended to continue on observation/expectant management. He continued anticoagulation with apixaban. On 07/04/2019 he was admitted to the hospital with multiple cerebral infarcts. I had suspected that it was another manifestation of cancer related hypercoagulability. As it occurred while on a therapeutic dosage of apixaban, his anticoagulation had been transitioned to Lovenox. He was initially transferred to [facility] for further rehabilitation, but he subsequently was able to return home. His restaging CT scans of the chest, abdomen, and pelvis on 07/25/2019 showed no obvious progression of the lung cancer. He had then opted to stop the Lovenox injections and restart anticoagulation with apixaban. He also was taking Plavix. He had subsequently developed further decline in cognitive function. His repeat brain MRI on 08/23/2019 showed areas of enhancement which were suspicious for worsening subacute infarcts. There were additional small enhancing lesions which were suspicious for metastases. With those findings his anticoagulation was transitioned back to Lovenox. A repeat PET/CT on 09/01/2019 showed a new small metastatic lesion in the right proximal femur. There was residual activity at the site of the metastatic lesion in the left femur. There were no other areas of abnormal activity noted on that study. He was then given palliative radiation to the right hip, completed on 09/28/2019 to a total dose of 3000 cGy. His repeat brain MRI on 09/16/2019 continued to show evidence of bilateral multilobar acute lacunar infarcts, but there was no convincing evidence for metastatic disease. He has since then continued anticoagulation with Lovenox, and there has been gradual improvement in his neurologic symptoms and in his performance status. He continues to have some hip pain, mainly when he first gets up to walk. Mr Sevilla was offered treatmetn with immunotherapy-pembrolizumab. He began his treatmetn on 11/09/2019. He has tolerated it well thus far. Plan: 1. Proceed with cycle 2 pembrolizumab at 200 mg. 2. He does not require any premeds. 3. Today's labs were reviewed in detail and discussed with Mr. Salmeron and a copy was given to him. WBC 6.3, hemoglobin 16.3, platelets 232,000 ANC is 4000 potassium 4.2 creatinine 1.1 and LFTs are stable. His TSH on November 09, 2019 was 1.63. 4. We will plan to see him back in 3 weeks with CBC, CMP and TSH. 5. Mr. Sevilla is instructed to contact us in the interim should questions or problems arise. 6. We did speak with Mrs. Sevilla in regards to Mr. Brunson request to have her bring in my wallet and check because I need to pay Dr. Chadwick . He insisted that he had written a check for Dr. Chadwick and wanted his to bring it in. However when we checked it was he states he had not really checked and could not find a check in his wallet for his checkup. She states that has beendoing things like this off and on for some time. But I think his memory is getting worse . She states that physically he is getting around good. She is just a little concerned about his memory. 7. We did ask Ms. Sevilla to come with Mr. Sevilla at his next follow-up. We have also made notes on the chart that she would need to accompany him at all his office visits due to his memory changes. Signed By: Elia Lovell.-BC, AOCNP Shorty Chadwick MD <<Signature on File>>
== END 2019-12-20 23:59 | disposition home or self-care (01) ==
LOC: ONCMED 07:26
PROVIDERS: Internal Medicine Medical Oncology; PCP Nurse Practitioner Family; Visit Provider Nurse Practitioner
DX: Z51.12 Encounter for antineoplastic immunotherapy (principal); C34.11 Malignant neoplasm of upper lobe, right bronchus or lung; C79.51 Secondary malignant neoplasm of bone; E83.110 Hereditary hemochromatosis; I25.10 Atherosclerotic heart disease of native coronary artery without angina pectoris; M19.90 Unspecified osteoarthritis, unspecified site; E78.5 Hyperlipidemia, unspecified; I10 Essential (primary) hypertension; I73.9 Peripheral vascular disease, unspecified; E11.9 Type 2 diabetes mellitus without complications; Z79.899 Other long term (current) drug therapy
CPT/HCPCS: 80053; 85025; 96413; 99214; J7050; J9271

== ENCOUNTER 2020-01-11 06:45 | Outpatient (RCR) | payer MEDICARE, SELFPAY ==
[2019-12-21 12:34] LABS: Basophils # 0.1 10^3/uL (0.0-0.1); Basophils % 1.2 %; Eosinophils # 0.6 10^3/uL (0.0-0.8); Eosinophils % 9.4 %; Hematocrit 47.2 % (42.0-52.0); Hemoglobin 16.2 g/dL (11.7-16.6); Lymphocytes # 1.2 10^3/uL (0.8-4.8); Lymphocytes % 20.1 %; Mean Corpuscular HGB Conc 34.3 g/dL (30.0-36.0); Mean Corpuscular Hemoglobin 30.9 pg (28.0-34.0); Mean Corpuscular Volume 89.9 fL (80-94); Mean Platelet Volume 9.7 fL (7.4-10.4); Monocytes # 0.6 10^3/uL (0.2-0.9); Monocytes % 10.1 %; Neutrophils # 3.5 10^3/uL (1.8-7.7); Neutrophils % 58.7 %; Nucleated Red Blood Cells % 0 %; Platelet Count 234 10^3/cmm (130-400); Red Blood Count 5.25 10^6/uL (4.1-5.3); Red Cell Distribution Width 13.9 % (12.1-15.1)
[2019-12-21 13:45] LABS: Alanine Aminotransferase 12 U/L (0-41); Albumin Level 4.4 g/dL (3.5-5.2); Alkaline Phosphatase 49 IU/L (40-130); Anion Gap 18.1 (5-19); Aspartate Amino Transferase 12 U/L (0-40); Blood Urea Nitrogen 16 mg/dL (8-23); Calcium 9.9 mg/dL (8.5-10.5); Carbon Dioxide 26 mmol/L (22-29); Chloride 99 mmol/L (98-107); Glucose 171 mg/dL (65-115); Osmolality Calculated 288 mOsm/kg (285-295); Potassium 4.1 mmol/L (3.5-5.1); Sodium 139 mmol/L (136-145); Thyroid Stimulating Hormone 2.26 uIU/mL (0.27-4.20); Total Bilirubin 0.6 mg/dL (0.15-1.2); Total Protein 7.4 g/dL (6.6-8.7)
--- NOTE | 2019-12-23 13:20 | ONC FU_ITS ---
Dr. Chadwick Patient Follow-Up Note Patient: Lynnette Sevilla Unit #: [id number]: [id number] Dicatated By: Shorty Chadwick M.D.Date of Visit:Dec 21, 2019 Onc Med Follow-up/Prog Note Chief Complaint: Hemochromatosis/lung cancer. 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 His disease was stage IB (T2a, N0, M0) at initial diagnosis, but with subsequent progression to stage TIGIST (M1b). He also has hereditary hemochromatosis. In February [address] Tyler with persistent cough. His evaluation included chest CT on 03/04/2017. It showed a spiculated density in the medial aspect of the anterior segment of the right upper lobe. It measured 1.8 x 2.4 x 1.8 cm and it was new compared to a previous study from November 2013. There was no associated mediastinal or hilar adenopathy, and there was no evidence of liver or adrenal metastases. He underwent bronchoscopy on 04/06/2017. There were no endobronchial lesions identified. The lesion was found to be avid by PET/CT. There was no evidence of metastatic involvement. He underwent right upper lobectomy with mediastinal lymph node biopsy on 04/29/2017. Pathology showed low-grade (grade 1-2) adenocarcinoma measuring 3.2 x 2.4 cm. There was penetration into visceral pleura and there was evidence of lymphovascular space invasion. The margins of resection were free, and there was no involvement in 1 mediastinal lymph node, in 1 lymph node at the right mainstem bronchus, and in 2 hilar lymph nodes. He has continued on observation/expectant management following the surgery, as there appeared to be no indication for adjuvant chemotherapy. I had initially seen him in October 2012 in regard to elevated hemoglobin/hematocrit levels and elevated serum iron. His evaluation at that time showed his hemoglobin elevated at 18.1 g with hematocrit 52%. White count and platelet count were normal. The serum iron was in the upper normal range at 145 mcg/dL with transferrin saturation 30.8%. The serum ferritin, though, was elevated at 606 ng/mL. He had additional evaluation including an erythropoietin level which was in the normal range at 12 mIU/mL. A MICHAEL 2 gene mutation study was negative. The HFE gene analysis showed double heterozygosity for the C282Y and the H63D mutations, consistent with hereditary hemochromatosis. He has been managed on a phlebotomy program. Surveillance chest CT on 12/07/2018 showed stable postoperative changes from prior right upper lobectomy. There was long-term stability of left upper lower lobe nodules. There was chronic emphysema. There was no evidence for recurrent or metastatic neoplastic process. He continued observation/expectant management for the lung cancer. He had then presented to Dr. Tyler's office with swelling and redness in the left arm, in the area of the antecubital fossa. Venous Doppler of the left arm on 02/11/2019 showed extensive occlusive thrombus in the left basilic vein. All other veins of the left upper extremity appeared free of thrombus. He was started on anticoagulation with apixaban. He was seen here for follow-up on 02/25/2019. He then had a restaging PET/CT on 03/10/2019. It showed interval development of abnormal activity in a lytic lesion in the left femoral neck, suspicious for metastatic disease. There was interval resolution of the small right upper lobe lung mass. There were no other areas of abnormal uptake on that study. With those findings, he was referred to Dr. Chin. On 03/17/2019 he underwent prophylactic open reduction with interval fixation of the left hip. Pathology on the bone fragments did confirm metastatic carcinoma consistent with the previous diagnosis of pulmonary infiltrating adenocarcinoma. Following recovery from the surgery he was seen by Dr. Boggs for palliative radiation. He completed treatment on 04/18/2019 to a total dose of 3900 cGy. He tolerated the treatment well. In the meantime, I had also requested a next generation sequencing study. It was performed on the original lung tumor, as the specimen from the left femur was insufficient for analysis. That study showed low PD-L1 expression at 7%. The mutation burden, though, was high. The tumor was negative for EGFR, BRAF, and KRAS mutations, and it also tested negative for the ALK and ROS1 rearrangements. The NTRK fusion also was not detected. I had seen him for a follow-up visit on 05/02/2019. He had restaging CT scans on 06/01/2019 showed no evidence for recurrent disease in the chest, abdomen, or pelvis. In the setting of a treated, solitary metastasis, he was recommended to continue on observation/expectant management. On 06/28/2019 he was seen in the emergency room with complaints of dizziness. CT of the head with and without contrast showed no acute findings. He was diagnosed with vestibular neuronitis. On 07/04/2019 he was admitted to the hospital after returning to the emergency room with acute mental status changes. His repeat head CT showed a 10 mm focal area of low-attenuation in the left frontal lobe which appeared new from the recent study. Was felt to possibly represent a subacute infarct. Further evaluation with brain MRI showed multifocal patchy areas of acute ischemia involving the YUNG territories bilaterally. The largest area of ischemia measured approximately 1 cm. There was no evidence of mass-effect or midline shift. The clinical presentation appeared most consistent with cancer related hypercoagulability. As it occurred while on a therapeutic dose of apixaban, his anticoagulation was transitioned to therapeutic Lovenox. His echocardiogram showed normal left ventricular cavity size and systolic function with estimated ejection fraction at 60%. There were no significant valvular abnormalities noted. There appeared to be no significant change compared to her previous study from July 2018. His bilateral carotid Doppler studies showed just moderate atheromatous plaque bilaterally. Head MRA showed no evidence of high-grade proximal stenosis or aneurysm. He was discharged to [facility] for rehab. At that point, he was still having significant expressive aphasia, but his confusion had improved significantly. He subsequently was able to return home. Restaging CT scans of the chest, abdomen, and pelvis on 07/25/2019 showed stable 5 mm noncalcified pulmonary nodule in the left upper lobe and a 3 mm noncalcified nodule in the left lower lobe. There was no mediastinal or hilar adenopathy. A few scattered hypodensities throughout the liver are too small to characterize but similar to prior studies. A new 7 mm hypodensity was noted in the lower pole of the right kidney. There was increased density within the lumen of a contracted gallbladder, suspicious for stones and/or chronic cholecystitis. There was no osteoblastic or osteolytic bone disease identified. On 08/03/2019 he was seen in the emergency room with dizziness. He has repeat noncontrast head CT showed atrophy and chronic deep white matter ischemic change with no acute intracranial abnormality identified. He was diagnosed with vertigo and treated with meclizine. I had seen him for a follow-up visit on 08/08/2019. He had opted to stop the Lovenox injections, and he had restarted anticoagulation with apixaban. He also was taking Plavix. He was still having some difficulty with his speech and he was having some confusion at times and some difficulty with memory. Subsequent to that visit, his had called and reported that his memory and confusion were continuing to worsen. A repeat brain MRI on 08/23/2019 showed multifocal areas of abnormal diffusion abnormalities and flair signal abnormalities. It was noted to predominantly involve the left hippocampal formation with additional more focal diffusion signal abnormalities extending towards the temporal occipital junction posteriorly. That finding appeared to be most consistent with worsening subacute infarcts. Also noted, though, were additional cortical areas of very subtle enhancement throughout the brain which were suspicious for metastatic lesions. The most concerning were in the left frontal vertex. With those findings, I was able to get his anticoagulation transition back to Lovenox. A repeat PET/CT on 09/01/2019 showed interval development of a small well-circumscribed lytic lesion in the upper femoral neck on the right measuring up to 19 mm with SUV 7.3. A small amount of fracture was noted along the posterior upper border of the left greater trochanter. Abnormal increased activity was noted along the site of the previous suspected metastatic lesion in the left femoral neck with a maximum SUV 6.2, similar to the previous study. There were no other areas of significant abnormal activity identified. Given the PET/CT findings, he was then given palliative radiation to the right hip, completed on 09/28/2019 to a total dose of 3000 cGy. He tolerated the treatment well. In the meantime, a repeat brain MRI on 09/16/2019 again showed numerous bilateral multi lobar acute lacunar infarcts. The previously described areas of enhancement are felt to most likely be related to ischemia and not to metastatic disease. At that time there was felt to be no convincing evidence for metastatic disease. I had seen him for a follow-up visit on 03/2020. At that point he was beginning to show some recovery. I had discussed options for further treatment of the lung cancer. It was quite clear that he was not interested in attempting any chemotherapy. He did agree to continue anticoagulation with Lovenox, and ultimately he also agreed to a trial of immunotherapy. His other medical illnesses include hypertension, hyperlipidemia, type 2 diabetes, coronary artery disease, peripheral vascular disease, and degenerative arthritis. He underwent coronary artery bypass surgery in 1996 and he underwent an arterial bypass procedure to the right leg in 1999. In 2013 he was found to have significant hypoxemia. On evaluation he was found to have COPD and obstructive sleep apnea. 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 Also noted was calcific plaque at the origins of the common iliac arteries at 54% on the left and 60% on the right. He has a history of smoking 1-1 1/2 packs of cigarettes daily, but he quit smoking in 1996. INTERIM HISTORY: On 11/09/2019 he began a trial of immunotherapy with pembrolizumab as a single modality. He tolerated the initial infusion of pembrolizumab with no adverse effects, and he then continued with cycle 2 on 11/30/2019. He is seen for a follow-up visit. He has been feeling pretty good generally. He does report having some dizzy spells, and he has episodes of orthostatic lightheadedness. His energy otherwise seems to be okay. He is doing light work. He has good appetite. He has no fever or night sweats. He does have some sinus drainage, but he has very little cough. He says his breathing is okay. He is not having chest pain. He has no GI or complaints. He does have some hip pain, but it is not any worse, and he has no other joint or bone pain. He does not complain of headache, and he does not have any focal neurologic symptoms. Medications: Acetaminophen Extra Strength 1 (500 mg) Tablet Oral b.i.d., amLODIPine Besylate 1 Tablet (of 2.5 mg) Oral daily, Atorvastatin Calcium 1 Tablet (of 20 mg) Oral daily, B-12 1 Tablet (of 1000 mcg) Tablet Oral daily, Bisacodyl 1 Tablet (of 5 mg) Tablet, enteric coated Oral daily PRN, Carvedilol 1 (25 mg) Tablet Oral b.i.d., Cetirizine HCl 1 Tablet (of 10 mg) Oral daily, Cholecalciferol 1 Capsule (of 2000 Units) Oral daily, [employer] Mucus Extended Release 1 Tablet (of 600 mg) Tablet SR 12 HR Oral daily PRN, Docusate Sodium 1 Tablet (of 100 mg) Oral daily, Dulcolax Milk of Magnesia 30 mL (of 400 mg/5mL) Suspension Oral daily PRN, Enoxaparin Sodium 80 mg (of 300 mg/3mL) Injection b.i.d., Famotidine 1 Tablet (of 20 mg) Tablet Oral b.i.d., Fish Oil 1 (1200 mg) Capsule Oral daily, Flonase Suspension Nasal, Gabapentin 1 Tablet (of 300 mg) Oral daily, Jardiance 0.5 Tablet (of 12.5 ) Oral daily, Lovastatin 1 Tablet (of 40 mg) Oral b.i.d., Meclizine HCl 1 Tablet (of 25 mg) Oral daily PRN, MetFORMIN HCl 2 Tablet (of 500 mg) Oral b.i.d., Plavix 1 (75 mg) Tablet Oral daily, Spiriva Respimat Aerosol, solution Inhalation, Tamsulosin HCl 1 (0.4 mg) Capsule Oral daily Allergies: PENICILLIN AND ALEVE Review of Systems: Constitutional - He is feeling okay and his energy has been okay. He is able to do light work around the house. His appetite is good and weight is stable. No fever, night sweats, or hot flashes. ECOG score is 1, ENMT - He has persistent sinus drainage. No mouth sores. No sore throat or difficulty swallowing, Hematologic/Lymphatic - He bruises easily, Respiratory - He has shortness of breath. No cough. No pleuritic pain or hemoptysis, Cardiovascular - No angina pain. No palpitations, Gastrointestinal - No nausea or vomiting. No heartburn or acid reflux. No diarrhea or constipation. No blood in the stool or black stools, Genitourinary (M) - No dysuria or hematuria. No urinary frequency. No urgency or incontinence, Musculoskeletal - He has pain in his hips, Integumentary - No skin complications, Neurologic - No headache. He has had a few episodes of dizziness. No numbness or tingling. No other focal neurologic symptoms, Psychiatric - No anxiety or depression. No insomnia. Vital Signs: Performed on Dec 21, 2019 12:53 Height - 65.00 in Weight - 174.8 lbs (HIGH) BSA - 1.87 sq.m BMI - 29.09 Temperature - 97.5 F (LOW) Pulse - 69 /min Respiration - 22 /min BP - 139/65 mm(hg) O2 Sat - 93 % (LOW) Pain - 0 Physical Examination: Constitutional - He looks pretty good generally, Eyes - Sclerae nonicteric. Conjunctivae clear, ENMT - There are no lesions noted in the oral cavity, Hematologic/Lymphatic - No cervical, clavicular, or axillary adenopathy, Respiratory - Lungs sound clear with some decrease in air movement bilaterally, Cardiovascular - Heart rhythm is regular. There is no murmur, gallop, or rub noted, Abdomen - Soft. Liver and spleen are not enlarged. There is no abdominal mass or ascites noted and there is no inguinal adenopathy, Extremities - No edema, Neurologic - No focal neurologic deficits noted. Lab/Imaging: Test performed on Dec 21, 2019 12:10 Sodium 139 mmol/L TSH 2.26 uIU/mL Potassium 4.1 mmol/L Chloride 99 mmol/L CO2 26 mmol/L Anion Gap 18.1 BUN 16 mg/dL Creatinine 0.9 mg/dL Cr Clearance (Est) 77.0900 mL/min Glucose 171 mg/dL Calcium 9.9 mg/dL Protein, Total 7.4 g/dL Albumin 4.4 g/dL Globulin 3.0 g/dL Bilirubin, Total 0.6 mg/dL ALT (SGPT) 12 U/L AST (SGOT) 12 U/L Alkaline Phosphatase 49 IU/L WBC 6.0 10 3/uL RBC 5.25 10 6/uL HGB 16.2 g/dL HCT 47.2 % MCV 89.9 fL MCH 30.9 pg MCHC 34.3 g/dL RDW 13.9 % Platelet Count 234 10 3/cmm MPV 9.7 fL Neutrophils 3.5 10 3/uL Lymphocytes 1.2 10 3/uL Monocytes 0.6 10 3/uL Eosinophils 0.6 10 3/uL Basophils 0.1 10 3/uL Neutrophil % 58.7 % Lymphocyte % 20.1 % Monocyte % 10.1 % Eosinophil % 9.4 % Basophils % 1.2 % NRBC % 0 % Impression: 1. Patient with nonsmall cell cancer (low-grade adenocarcinoma) involving the upper lobe of the right lung, stage IB (T2a, N0, M0). 2. He underwent right upper lobectomy with mediastinal lymph node biopsy on 04/29/2017. 3. He has hereditary hemochromatosis. He was found to be doubly heterozygous for the C282Y and the H63D mutations. He has had a very good response to phlebotomy, with his subsequent ferritin levels maintained at less than 50 ng/mL compared to a pretreatment level of greater than 600. 4. He has underlying lung disease including COPD and obstructive sleep apnea, and he has associated chronic hypoxia. 5. 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 His other medical illnesses include: 6. Hypertension. 7. Hyperlipidemia. 8. Type II diabetes. 9. Coronary artery disease. 10. Peripheral arterial disease. 11. Degenerative arthritis. In January 2019 he had presented with a deep vein thrombosis of the left arm. It appeared to have been an unprovoked thrombosis. He started anticoagulation with apixaban. His restaging PET/CT on 03/10/2019 showed evidence of a single site of metastatic disease in the form of a lytic bone lesion in the left femoral neck. He underwent prophylactic ORIF of the left hip on 03/17/2019. Pathology confirmed metastatic adenocarcinoma. Following recovery from the surgery, he was seen by Dr. Boggs for palliative radiation. He completed treatment on 04/18/2019 to a total dose of 3900 cGy. During that time, he had additional pathologic evaluation with the next generation sequencing study on his primary lung tumor. It showed low PD-L1 expression at 7%. The mutation burden was high. There were no actionable mutations identified. His restaging CT scans on 06/01/2019 showed no evidence for recurrent disease in the chest, abdomen, or pelvis. In the setting of a treated, solitary metastasis, he was recommended to continue on observation/expectant management. He continued anticoagulation with apixaban. On 07/04/2019 he was admitted to the hospital with multiple cerebral infarcts. I had suspected that it was another manifestation of cancer related hypercoagulability. As it occurred while on a therapeutic dosage of apixaban, his anticoagulation had been transitioned to Lovenox. He was initially transferred to [facility] for further rehabilitation, but he subsequently was able to return home. His restaging CT scans of the chest, abdomen, and pelvis on 07/25/2019 showed no obvious progression of the lung cancer. He had then opted to stop the Lovenox injections and restart anticoagulation with apixaban. He also was taking Plavix. He had subsequently developed further decline in cognitive function. His repeat brain MRI on 08/23/2019 showed areas of enhancement which were suspicious for worsening subacute infarcts. There were additional small enhancing lesions which were suspicious for metastases. With those findings his anticoagulation was transitioned back to Lovenox. A repeat PET/CT on 09/01/2019 showed a new small metastatic lesion in the right proximal femur. There was residual activity at the site of the metastatic lesion in the left femur. There were no other areas of abnormal activity noted on that study. He was then given palliative radiation to the right hip, completed on 09/28/2019 to a total dose of 3000 cGy. His repeat brain MRI on 09/16/2019 continued to show evidence of bilateral multilobar acute lacunar infarcts, but there was no convincing evidence for metastatic disease. He then continued anticoagulation with Lovenox, and during followup there was gradual improvement in his neurologic symptoms and in his performance status. On 11/09/2019 he began a trial of immunotherapy with pembrolizumab as a single modality. He tolerated the initial infusion of pembrolizumab with no adverse effects, and he then continued with cycle 2 on 11/30/2019. At this point he appears to be doing pretty well. He has had no apparent adverse effects with his treatment. He does report having some dizziness and episodes of orthostatic lightheadedness. He otherwise appears stable clinically. Plan: He will continue with cycle 3 of pembrolizumab at 200 mg by IV infusion. He will return for treatment in 3 weeks and for a follow-up visit in 6 weeks. At that point I may consider transitioning the pembrolizumab to a 6-week dosing schedule. Signed By: Shorty Chadwick M.D. <<Signature on File>>
[2019-12-30] MEDS: denosumab 120 mg SDV SUBCUT (11:35)
== END 2020-01-20 23:59 | disposition home or self-care (01) ==
LOC: ONCMED 06:45
PROVIDERS: PCP Nurse Practitioner Family; Visit Provider Internal Medicine Medical Oncology
DX: Z51.12 Encounter for antineoplastic immunotherapy (principal); C34.11 Malignant neoplasm of upper lobe, right bronchus or lung; C79.51 Secondary malignant neoplasm of bone; E83.110 Hereditary hemochromatosis; Z90.2 Acquired absence of lung [part of]; J43.9 Emphysema, unspecified; H81.20 Vestibular neuronitis, unspecified ear; I10 Essential (primary) hypertension; E78.5 Hyperlipidemia, unspecified; I25.10 Atherosclerotic heart disease of native coronary artery without angina pectoris; E11.51 Type 2 diabetes mellitus with diabetic peripheral angiopathy without gangrene; M19.90 Unspecified osteoarthritis, unspecified site; G47.33 Obstructive sleep apnea (adult) (pediatric); Z79.84 Long term (current) use of oral hypoglycemic drugs; Z79.02 Long term (current) use of antithrombotics/antiplatelets; Z86.718 Personal history of other venous thrombosis and embolism; Z92.3 Personal history of irradiation; Z95.1 Presence of aortocoronary bypass graft; Z86.73 Personal history of transient ischemic attack (TIA), and cerebral infarction without residual deficits
CPT/HCPCS: 80053; 84443; 85025; 96372; 96413; 99214; J0897; J7050; J9271

== ENCOUNTER 2020-01-21 09:47 | Emergency (ER) | payer MEDICARE, SELFPAY ==
[2020-01-21 09:49] VITALS: BP 123/64; PULSE 73; RESP 20; TEMP 35.9; O2SAT 91; BMI 31.6
--- NOTE | 2020-01-21 10:17 | XRR_ITS ---
PROCEDURE INFORMATION: Exam: XR Chest, 1 View Exam date and time: 01/21/2020 10:27 AM Age: 79 years old Clinical indication: Dyspnea; Prior surgery; Surgery type: Heart; Additional info: Dyspnea/cough TECHNIQUE: Imaging protocol: XR of the chest Views: 1 view. COMPARISON: CR XR chest 1V portable [id number] 09/17/2019 2:02 PM FINDINGS: Lungs: Unremarkable. No consolidation. Pleural space: Unremarkable. No pleural effusion. No pneumothorax. Heart/Mediastinum: Unremarkable. No cardiomegaly. Diaphragm: Stable right hemidiaphragm elevation. Bones/joints: No acute findings. Sternotomy. XR/XR chest 1V portable [id number] IMPRESSION: No acute findings.
--- NOTE | 2020-01-21 10:17 | CTR_ITS ---
PROCEDURE INFORMATION: Exam: CT Abdomen And Pelvis With Contrast Exam date and time: 01/21/2020 11:02 AM Age: 79 years old Clinical indication: Abdominal pain; Additional info: Abd pain TECHNIQUE: Imaging protocol: Computed tomography of the abdomen and pelvis with intravenous contrast. Radiation optimization: All CT scans at this facility use at least one of these dose optimization techniques: automated exposure control; mA and/or kV adjustment per patient size (includes targeted exams where dose is matched to clinical indication); or iterative reconstruction. Contrast material: VISI 320; Contrast volume: 95 ml; Contrast route: INTRAVENOUS (IV); COMPARISON: CT chest abd pel w con* 07/25/2019 3:27 PM RADIATION DOSE METRICS: Total DLP (mGy-cm): 905.85 FINDINGS: Liver: Hepatic cysts, largest approximately 2 cm. Gallbladder and bile ducts: Cholelithiasis. No ductal dilation. Pancreas: Normal. No ductal dilation. Spleen: Normal. No splenomegaly. Adrenals: Normal. No mass. Kidneys and ureters: Normal. No hydronephrosis. Stomach and bowel: No acute findings. No obstruction. No mucosal thickening. Minimal colonic diverticulosis. Appendix: No evidence of appendicitis. Intraperitoneal space: No free fluid or pneumoperitoneum. No abscess. Vasculature: No abdominal aortic aneurysm. Lymph nodes: No significant adenopathy. Bladder: Unremarkable as visualized. Reproductive: Unremarkable as visualized. Bones/joints: Left femoral internal fixation device. Soft tissues: No acute findings. Densities in the anterior abdominal wall consistent with injections or scarring. CT/CT abdomen pelvis w con* [id number] IMPRESSION: No acute findings. Cholelithiasis. Radiation Dose CTDIVOL = (mGy): DLP = 905.85 (mGy-cm)
[2020-01-21 10:30] VITALS: BP 116/62; RESP 18; O2SAT 90
--- NOTE | 2020-01-21 10:35 | W.ED.MALEGU ---
HPI - Male Genitourinary General: Chief complaint: Urogenital-Male Stated complaint: RIGHT FLANK PAIN Time Seen by Provider: 01/21/20 09:54 History of Present Illness: HPI Narrative: 79-year-old male presents with right flank pain for last 2 days no hematuria no nausea vomiting or diarrhea rest makes it better movement makes it worse. He denies any fever sweats and chills he also can reproduce the pain with palpation along the right flank and at the anterior superior aspect of the right iliac crest. He denies any dysuria urgency or frequency has not had any respiratory issues recently has not been exposed to anyone known to COVID. He notes when he takes a deep breath or coughs it makes it worse. Onset (ago): day(s) Duration: intermittent Location: right flank Severity: moderate Quality: sharp Relieving factors: rest Exacerbating factors: movement Associated symptoms: Reports no associated symptoms; Deny dysuria, nausea or vomiting Review of Systems Const: Denies: fever(s), chills, body aches, change in appetite, fatigue or malaise ENMT: Denies: throat pain, ear or mastoid pain, nasal discharge or nasal congestion Card: Denies: chest pain, edema, dyspnea on exertion or orthopnea Resp: Denies: dyspnea, productive cough or non-productive cough GI: Denies: abdominal pain, nausea, vomiting, hematemesis, coffee ground emesis, diarrhea, constipation, bloating, hematochezia or melena : Denies: flank pain, dysuria, urinary frequency or urinary urgency Skin/Breast: Denies: rash or pruritus PFSH ED PFSH: Medical History Accelerated hypertension Allergic rhinitis Atherosclerosis of coronary artery of [place] heart BPH (benign prostatic hyperplasia) Carotid artery disease 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 Chronic anticoagulation COPD (chronic obstructive pulmonary disease) Coronary artery disease DJD (degenerative joint disease) DVT (deep venous thrombosis) GERD (gastroesophageal reflux disease) Gout Hemochromatosis Hyperlipidemia Hypertension Lung cancer 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 Obstructive sleep apnea Peripheral arterial disease with history of revascularization Peripheral neuropathy Type 2 diabetes mellitus Surgical History History of left hip hemiarthroplasty Family History Mother Diabetes Social History Smoking and tobacco status: former smoker History of recent travel: No Physical Exam Const: COMMON NORMALS: no acute distress GENERAL APPEARANCE: cooperative and comfortable ORIENTATION/CONSCIOUSNESS: Yes awake, Yes oriented to person, Yes oriented to place and Yes oriented to time HENMT: COMMON NORMALS: normocephalic and atraumatic HEAD & SCALP: normocephalic and atraumatic Eye: COMMON NORMALS: Equal, round and reactive pupils present, EOMs intact bilaterally, conjunctivae normal and no scleral icterus CONJUNCTIVA: Yes conjunctivae normal PUPIL: Yes Equal, round and reactive pupils present Neck/C-Spine: COMMON NORMALS: full ROM, no lymphadenopathy, supple and no JVD Lymph: LYMPHATIC: no lymphadenopathy noted and no lymphedema noted Resp: COMMON NORMALS: normal respiratory effort, No retractions, No use of accessory muscles and clear to auscultation bilaterally AUSCULTATION: clear to auscultation bilaterally Cardio: COMMON NORMALS: no JVD, regular rate, regular rhythm and No murmurs present (Cardio) RATE: regular rate RHYTHM: regular rhythm GI: COMMON NORMALS: Soft to palpation and No hepatosplenomegaly present AUSCULTATION: Yes normoactive bowel sounds PALPATION: Yes Soft to palpation, No Tenderness to palpation present (GI), No Guarding due to palpation present (GI) and Yes No hepatosplenomegaly present Extremity: COMMON NORMALS: normal to inspection, capillary refill normal, no clubbing, cyanosis or edema, no calf tenderness and no pedal edema Neuro: SENSORIUM/ORIENTATION: Yes oriented to person, Yes oriented to place and Yes oriented to time Skin: COMMON NORMALS: no rashes or lesions noted GENERAL SKIN EXAM: no rashes or lesions noted Course Vital Signs: Vital signs: Vital Signs Temperature 96.7 F L 01/21/20 09:49 Pulse Rate 60 01/21/20 12:52 Respiratory Rate 18 01/21/20 12:52 Blood Pressure 107/59 01/21/20 12:52 Pulse Oximetry 91 01/21/20 12:52 MDM - Male [facility] Narrative: Medical decision making narrative: Reproducible abdominal pain with palpation across the right flank in the anterior superior aspect of the iliac crest. It is definitely musculoskeletal nature we did work-up other potential course sources did not find anything for and I think he can safely be discharged he is doing well discussed with the patient have him follow-up or return if he has any worsening or changes symptoms. Lab Data: Labs: Lab Results 01/21/20 01/21/20 01/21/20 Range/Units 10:34 10:34 12:03 WBC 4.5 (4.0-10.0) 10^3/ uL RBC 5.52 H (4.1-5.3) 10^6/u L Hgb 16.8 H (11.7-16.6) g/dL Hct 50.2 (42.0-52.0) % MCV 90.9 (80-94) fL MCH 30.4 (28.0-34.0) pg MCHC 33.5 (30.0-36.0) g/dL RDW 13.7 (12.1-15.1) % Plt Count 194 (130-400) 10^3/c mm MPV 9.7 (7.4-10.4) fL Neut % (Auto) 61.0 % Lymph % (Auto) 16.4 % Harvey % (Auto) 11.9 % Eos % (Auto) 8.8 % Baso % (Auto) 1.5 % Neut # (Auto) 2.75 (1.8-7.7) 10^3/u L Lymph # (Auto) 0.7 L (0.8-4.8) 10^3/u L Harvey # (Auto) 0.5 (0.2-0.9) 10^3/u L Eos # (Auto) 0.4 (0.0-0.8) 10^3/u L Baso # (Auto) 0.1 (0.0-0.1) 10^3/u L Nucleated RBC % (a uto) 0 % Nucleated RBCs # 0.0 /100WBC Sodium 134 L (136-145) mmol/L Potassium 4.4 (3.5-5.1) mmol/L Chloride 97 L (98-107) mmol/L Carbon Dioxide 26 (22-29) mmol/L Anion Gap 15.4 (5-19) BUN 21 (8-23) mg/dL Creatinine 1.2 (0.7-1.2) mg/dL GFR Calculation Not Reportable Glucose 180 H (65-115) mg/dL Calculated Osmolal ity 279 L (285-295) mOsm/k g Calcium 9.8 (8.5-10.5) mg/dL Total Bilirubin 0.8 (0.15-1.2) mg/dL AST 14 (0-40) U/L ALT 11 (0-41) U/L Alkaline Phosphata se 48 (40-130) IU/L Total Protein 7.5 (6.6-8.7) g/dL Albumin 4.7 (3.5-5.2) g/dL Globulin 2.8 (1.3-4.6) g/dL Urine Color Straw (Yellow) Urine Appearance Clear (CLEAR) Urine pH 5 (5-7) Ur Specific Gravit y 1.005 (1.005-1.030) Urine Protein Neg (Negative) Urine Glucose (UA) 4+ H (Normal) Urine Ketones Negative (Negative) Urine Blood Neg (Negative) Urine Nitrate Negative (Negative) Urine Bilirubin Neg (NEGATIVE) Urine Urobilinogen Norm (Negative) mg/dL Ur Leukocyte Ritika ase Negative (Negative) Discharge Plan Discharge Patient Disposition: Home Clinical Impression: Abdominal wall pain Condition: Stable Prescriptions: No Action hydrocodone-acetaminophen 5-325 mg tablet 1 tab PO PRN RF: 0 carvedilol 25 mg Tablet 25 mg PO BID RF: 0 clopidogrel [Plavix] 75 mg Tablet 75 mg PO DAILY RF: 0 amlodipine [Norvasc] 5 mg Tablet 2.5 mg PO DAILY RF: 0 famotidine 20 mg Tablet 20 mg PO BID PRN (Reason: unknown) RF: 0 tamsulosin [Flomax] 0.4 mg Capsule 0.4 mg PO DAILY RF: 0 gabapentin 300 mg Capsule 300 mg PO DAILY RF: 0 allopurinol 300 mg Tablet 300 mg PO DAILY RF: 0 metformin 500 mg Tablet Extended Release 24 Hr 1,000 mg PO BID RF: 0 vitamin [id number] acid 0.5-1 mg Tablet 1 tab PO DAILY RF: 0 cholecalciferol (vitamin D3) [Vitamin D3] 2,000 unit Tablet 2,000 unit PO DAILY RF: 0 omega [id number] oil [Fish Oil] 1,000 mg (120 mg-180 mg) Capsule 1 cap PO DAILY RF: 0 Jardiance 25 mg Tablet 12.5 mg PO DAILY RF: 0 meclizine 25 mg tablet 25 - 50 mg PO DAILY PRN (Reason: dizziness) RF: 0 lovastatin 40 mg Tablet 40 mg PO BID RF: 0 fluticasone propionate [Flonase Allergy Relief] 50 mcg/actuation [place],Suspension 2 spray INTRANASAL DAILY PRN (Reason: unknown) RF: 0 guaifenesin [Mucinex] 600 mg Tablet Extended Release 12hr 600 mg PO PRN RF: 0 Spiriva Respimat 1.25 mcg/actuation Mist 2 puff INHALATION DAILY PRN (Reason: unknown) RF: 0 valsartan 320 mg Tablet 320 mg PO DAILY RF: 0 docusate sodium 100 mg capsule 100 mg PO DAILY PRN (Reason: Constipation) RF: 0 enoxaparin [Lovenox] 80 mg/0.8 mL Syringe 80 mg SUBCUT Q12H 30 Days Qty: 48 RF: 0 Discharge Orders: Discharge Order (Routine); Ordered 01/21/20 Ordered By: Huber Patel Referrals: Aislinn Beebe NP [Primary Care Provider] - Discharge Diet: Usual diet Discharge Activity: Increase activity as tolerated Discharge Date/Time: 01/21/20 12:47 Coding Level of Care Code ED Special Education Case Manager for Moises Sam
[2020-01-21 10:42] LABS: Basophils # 0.1 10^3/uL (0.0-0.1); Basophils % 1.5 %; Eosinophils # 0.4 10^3/uL (0.0-0.8); Eosinophils % 8.8 %; Hematocrit 50.2 % (42.0-52.0); Hemoglobin 16.8 g/dL (11.7-16.6); Lymphocytes # 0.7 10^3/uL (0.8-4.8); Lymphocytes % 16.4 %; Mean Corpuscular HGB Conc 33.5 g/dL (30.0-36.0); Mean Corpuscular Hemoglobin 30.4 pg (28.0-34.0); Mean Corpuscular Volume 90.9 fL (80-94); Mean Platelet Volume 9.7 fL (7.4-10.4); Monocytes # 0.5 10^3/uL (0.2-0.9); Monocytes % 11.9 %; Neutrophils # 2.75 10^3/uL (1.8-7.7); Nucleated Red Blood Cells % 0 %; Platelet Count 194 10^3/cmm (130-400); Red Blood Count 5.52 10^6/uL (4.1-5.3); Red Cell Distribution Width 13.7 % (12.1-15.1); White Blood Count 4.5 10^3/uL (4.0-10.0)
[2020-01-21 11:00] LABS: Alanine Aminotransferase 11 U/L (0-41); Albumin Level 4.7 g/dL (3.5-5.2); Alkaline Phosphatase 48 IU/L (40-130); Anion Gap 15.4 (5-19); Aspartate Amino Transferase 14 U/L (0-40); Blood Urea Nitrogen 21 mg/dL (8-23); Calcium 9.8 mg/dL (8.5-10.5); Carbon Dioxide 26 mmol/L (22-29); Chloride 97 mmol/L (98-107); Globulin 2.8 g/dL (1.3-4.6); Glucose 180 mg/dL (65-115); Osmolality Calculated 279 mOsm/kg (285-295); Potassium 4.4 mmol/L (3.5-5.1); Sodium 134 mmol/L (136-145); Total Bilirubin 0.8 mg/dL (0.15-1.2); Total Protein 7.5 g/dL (6.6-8.7)
[2020-01-21] MEDS: iodixanol 320 mg/mL 100mL Btl IV (11:14)
[2020-01-21 12:16] LABS: Add Urine Microscopic? NO
[2020-01-21 12:23] LABS: Bilirubin Urine Neg (NEGATIVE); Blood Urine Neg (Negative); Glucose Urine UA 4+ (Normal); Ketones Urine Negative (Negative); Leukocyte Esterase Urine Negative (Negative); Nitrate Urine Negative (Negative); Protein Urine Neg (Negative); Specific Gravity, Urine 1.005 (1.005-1.030); Urine Appearance Clear (CLEAR); Urine Color Straw (Yellow); Urobilinogen Urine Norm (Negative); pH Urine 5 (5-7)
[2020-01-21 12:52] VITALS: BP 107/59; PULSE 60; RESP 18; O2SAT 91
== END 2020-01-21 12:47 | disposition home or self-care (01) ==
PROVIDERS: Emergency Provider Family Medicine; PCP Nurse Practitioner Family
DX: R10.9 Unspecified abdominal pain (principal); Z79.02 Long term (current) use of antithrombotics/antiplatelets; I25.10 Atherosclerotic heart disease of native coronary artery without angina pectoris; J44.9 Chronic obstructive pulmonary disease, unspecified; E78.5 Hyperlipidemia, unspecified; I10 Essential (primary) hypertension; Z85.118 Personal history of other malignant neoplasm of bronchus and lung; E11.42 Type 2 diabetes mellitus with diabetic polyneuropathy; Z87.891 Personal history of nicotine dependence
CPT/HCPCS: 12345; 71045; 74177; 80053; 81003; 85025; 99283; Q9967

== ENCOUNTER 2020-02-01 06:15 | Outpatient (RCR) | payer MEDICARE, SELFPAY ==
[2020-02-01 11:11] LABS: Basophils # 0.1 10^3/uL (0.0-0.1); Basophils % 1.2 %; Eosinophils # 0.4 10^3/uL (0.0-0.8); Eosinophils % 7.4 %; Lymphocytes # 1.1 10^3/uL (0.8-4.8); Lymphocytes % 19.6 %; Mean Corpuscular HGB Conc 32.7 g/dL (30.0-36.0); Mean Corpuscular Hemoglobin 30.5 pg (28.0-34.0); Mean Corpuscular Volume 93.5 fL (80-94); Mean Platelet Volume 9.9 fL (7.4-10.4); Monocytes # 0.6 10^3/uL (0.2-0.9); Monocytes % 9.6 %; Neutrophils # 3.59 10^3/uL (1.8-7.7); Neutrophils % 61.7 %; Nucleated Red Blood Cells % 0 %; Platelet Count 200 10^3/cmm (130-400); Red Blood Count 5.24 10^6/uL (4.1-5.3); Red Cell Distribution Width 13.6 % (12.1-15.1); White Blood Count 5.8 10^3/uL (4.0-10.0)
[2020-02-01 11:43] LABS: Alanine Aminotransferase 16 U/L (0-41); Albumin Level 4.2 g/dL (3.5-5.2); Alkaline Phosphatase 39 IU/L (40-130); Anion Gap 14.4 (5-19); Aspartate Amino Transferase 16 U/L (0-40); Blood Urea Nitrogen 17 mg/dL (8-23); Carbon Dioxide 24 mmol/L (22-29); Chloride 102 mmol/L (98-107); Globulin 2.9 g/dL (1.3-4.6); Glucose 270 mg/dL (65-115); Osmolality Calculated 288 mOsm/kg (285-295); Potassium 4.4 mmol/L (3.5-5.1); Sodium 136 mmol/L (136-145); Thyroid Stimulating Hormone 2.78 uIU/mL (0.27-4.20); Total Bilirubin 0.5 mg/dL (0.15-1.2); Total Protein 7.1 g/dL (6.6-8.7)
[2020-02-01] MEDS: denosumab 120 mg SDV SUBCUT (14:20)
--- NOTE | 2020-02-04 15:00 | ONC FU_ITS ---
Manjinder Pimentel Patient Note Patient: Lynnette Sevilla Unit #: [id number]: [id number] Dictated By: Brian LovellDate of Visit: Feb 01, 2020 Onc MED Follow-Up/Prog Note Chief Complaint: Hemochromatosis/lung cancer. 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 His disease was stage IB (T2a, N0, M0) at initial diagnosis, but with subsequent progression to stage TIGIST (M1b). He also has hereditary hemochromatosis. In February [address] Tyler with persistent cough. His evaluation included chest CT on 03/04/2017. It showed a spiculated density in the medial aspect of the anterior segment of the right upper lobe. It measured 1.8 x 2.4 x 1.8 cm and it was new compared to a previous study from November 2013. There was no associated mediastinal or hilar adenopathy, and there was no evidence of liver or adrenal metastases. He underwent bronchoscopy on 04/06/2017. There were no endobronchial lesions identified. The lesion was found to be avid by PET/CT. There was no evidence of metastatic involvement. He underwent right upper lobectomy with mediastinal lymph node biopsy on 04/29/2017. Pathology showed low-grade (grade 1-2) adenocarcinoma measuring 3.2 x 2.4 cm. There was penetration into visceral pleura and there was evidence of lymphovascular space invasion. The margins of resection were free, and there was no involvement in 1 mediastinal lymph node, in 1 lymph node at the right mainstem bronchus, and in 2 hilar lymph nodes. He has continued on observation/expectant management following the surgery, as there appeared to be no indication for adjuvant chemotherapy. Dr Johansen had initially seen him in October 2012 in regard to elevated hemoglobin/hematocrit levels and elevated serum iron. His evaluation at that time showed his hemoglobin elevated at 18.1 g with hematocrit 52%. White count and platelet count were normal. The serum iron was in the upper normal range at 145 mcg/dL with transferrin saturation 30.8%. The serum ferritin, though, was elevated at 606 ng/mL. He had additional evaluation including an erythropoietin level which was in the normal range at 12 mIU/mL. A MICHAEL 2 gene mutation study was negative. The HFE gene analysis showed double heterozygosity for the C282Y and the H63D mutations, consistent with hereditary hemochromatosis. He has been managed on a phlebotomy program. Surveillance chest CT on 12/07/2018 showed stable postoperative changes from prior right upper lobectomy. There was long-term stability of left upper lower lobe nodules. There was chronic emphysema. There was no evidence for recurrent or metastatic neoplastic process. He continued observation/expectant management for the lung cancer. He had then presented to Dr. Tyler's office with swelling and redness in the left arm, in the area of the antecubital fossa. Venous Doppler of the left arm on 02/11/2019 showed extensive occlusive thrombus in the left basilic vein. All other veins of the left upper extremity appeared free of thrombus. He was started on anticoagulation with apixaban. He was seen here for follow-up on 02/25/2019. He then had a restaging PET/CT on 03/10/2019. It showed interval development of abnormal activity in a lytic lesion in the left femoral neck, suspicious for metastatic disease. There was interval resolution of the small right upper lobe lung mass. There were no other areas of abnormal uptake on that study. With those findings, he was referred to Dr. Chin. On 03/17/2019 he underwent prophylactic open reduction with interval fixation of the left hip. Pathology on the bone fragments did confirm metastatic carcinoma consistent with the previous diagnosis of pulmonary infiltrating adenocarcinoma. Following recovery from the surgery he was seen by Dr. Boggs for palliative radiation. He completed treatment on 04/18/2019 to a total dose of 3900 cGy. He tolerated the treatment well. In the meantime, Dr Johansen had also requested a next generation sequencing study. It was performed on the original lung tumor, as the specimen from the left femur was insufficient for analysis. That study showed low PD-L1 expression at 7%. The mutation burden, though, was high. The tumor was negative for EGFR, BRAF, and KRAS mutations, and it also tested negative for the ALK and ROS1 rearrangements. The NTRK fusion also was not detected. He was seen for a follow-up visit on 05/02/2019. He had restaging CT scans on 06/01/2019 showed no evidence for recurrent disease in the chest, abdomen, or pelvis. In the setting of a treated, solitary metastasis, he was recommended to continue on observation/expectant management. On 06/28/2019 he was seen in the emergency room with complaints of dizziness. CT of the head with and without contrast showed no acute findings. He was diagnosed with vestibular neuronitis. On 07/04/2019 he was admitted to the hospital after returning to the emergency room with acute mental status changes. His repeat head CT showed a 10 mm focal area of low-attenuation in the left frontal lobe which appeared new from the recent study. Was felt to possibly represent a subacute infarct. Further evaluation with brain MRI showed multifocal patchy areas of acute ischemia involving the YUNG territories bilaterally. The largest area of ischemia measured approximately 1 cm. There was no evidence of mass-effect or midline shift. The clinical presentation appeared most consistent with cancer related hypercoagulability. As it occurred while on a therapeutic dose of apixaban, his anticoagulation was transitioned to therapeutic Lovenox. His echocardiogram showed normal left ventricular cavity size and systolic function with estimated ejection fraction at 60%. There were no significant valvular abnormalities noted. There appeared to be no significant change compared to her previous study from July 2018. His bilateral carotid Doppler studies showed just moderate atheromatous plaque bilaterally. Head MRA showed no evidence of high-grade proximal stenosis or aneurysm. He was discharged to [facility] for rehab. At that point, he was still having significant expressive aphasia, but his confusion had improved significantly. He subsequently was able to return home. Restaging CT scans of the chest, abdomen, and pelvis on 07/25/2019 showed stable 5 mm noncalcified pulmonary nodule in the left upper lobe and a 3 mm noncalcified nodule in the left lower lobe. There was no mediastinal or hilar adenopathy. A few scattered hypodensities throughout the liver are too small to characterize but similar to prior studies. A new 7 mm hypodensity was noted in the lower pole of the right kidney. There was increased density within the lumen of a contracted gallbladder, suspicious for stones and/or chronic cholecystitis. There was no osteoblastic or osteolytic bone disease identified. On 08/03/2019 he was seen in the emergency room with dizziness. He has repeat noncontrast head CT showed atrophy and chronic deep white matter ischemic change with no acute intracranial abnormality identified. He was diagnosed with vertigo and treated with meclizine. Dr Johansen had seen him for a follow-up visit on 08/08/2019. Mr Sevilla had opted to stop the Lovenox injections, and he had restarted anticoagulation with apixaban. He also was taking Plavix. He was still having some difficulty with his speech and he was having some confusion at times and some difficulty with memory. Subsequent to that visit, his had called and reported that his memory and confusion were continuing to worsen. A repeat brain MRI on 08/23/2019 showed multifocal areas of abnormal diffusion abnormalities and flair signal abnormalities. It was noted to predominantly involve the left hippocampal formation with additional more focal diffusion signal abnormalities extending towards the temporal occipital junction posteriorly. That finding appeared to be most consistent with worsening subacute infarcts. Also noted, though, were additional cortical areas of very subtle enhancement throughout the brain which were suspicious for metastatic lesions. The most concerning were in the left frontal vertex. With those findings, Dr Johansen was able to get his anticoagulation transition back to Lovenox. A repeat PET/CT on 09/01/2019 showed interval development of a small well-circumscribed lytic lesion in the upper femoral neck on the right measuring up to 19 mm with SUV 7.3. A small amount of fracture was noted along the posterior upper border of the left greater trochanter. Abnormal increased activity was noted along the site of the previous suspected metastatic lesion in the left femoral neck with a maximum SUV 6.2, similar to the previous study. There were no other areas of significant abnormal activity identified. Given the PET/CT findings, he was then given palliative radiation to the right hip, completed on 09/28/2019 to a total dose of 3000 cGy. He tolerated the treatment well. In the meantime, a repeat brain MRI on 09/16/2019 again showed numerous bilateral multi lobar acute lacunar infarcts. The previously described areas of enhancement are felt to most likely be related to ischemia and not to metastatic disease. At that time there was felt to be no convincing evidence for metastatic disease. Dr Johansen had seen him for a follow-up visit on 03/2020. At that point he was beginning to show some recovery. Dr Johansen had discussed options for further treatment of the lung cancer. It was quite clear that he was not interested in attempting any chemotherapy. He did agree to continue anticoagulation with Lovenox, and ultimately he also agreed to a trial of immunotherapy. His other medical illnesses include hypertension, hyperlipidemia, type 2 diabetes, coronary artery disease, peripheral vascular disease, and degenerative arthritis. He underwent coronary artery bypass surgery in 1996 and he underwent an arterial bypass procedure to the right leg in 1999. In 2013 he was found to have significant hypoxemia. On evaluation he was found to have COPD and obstructive sleep apnea. 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 Also noted was calcific plaque at the origins of the common iliac arteries at 54% on the left and 60% on the right. He has a history of smoking 1-1 1/2 packs of cigarettes daily, but he quit smoking in 1996. INTERIM HISTORY: On 11/09/2019 he began a trial of immunotherapy with pembrolizumab as a single modality. He tolerated the initial infusion of pembrolizumab with no adverse effects, and he then continued with cycle 2 on 11/30/2019. He has now completed four cycles and continues to tolerate it well. Mr Sevilla was evaluated in the @ [facility] [place] on 01/21/2020 for abdominal- right flank pain -anterior superior aspect of the iliac crest. No acute abnormalities were found in his exam and contrasat CT of the abdomen and pelvis. He was discharged with no new instructions. Mr Sevilla is here today for followup. he is due for cycle 5 pembrolizumab. He began monthly Xgeva on 12/30/2019. Mr. Sevilla is accompanied by his today. He has no new concerns today. Mrs Sevilla mentions that she feels like Mr Sevilla is having trouble with remembering things. She states she has tried to mention it to him, but he gets upset and denies having any problems remembering. She has not noticed confusion or personalitity changes. Mr Sevilla states he is active around the house and yard. He states he does well with this. He has a good appetite. He denies any new pain. He has not had recurrence of the abdominal/flank pain. He states his bowels and bladder are normal for him. He denies any shortness of breath or cough. He denies any pain breathing. He denies orthopnea. He denies any chest pain or palpitations. His ECOG is 1. Dr Johansen had prreviously discussed with Mr Sevilla the possibility of changing his treatment interval to every 6 weeks with the dose @ 400 mg since he is tolerating it well. Mr Sevilla is anxoius about changing the treatment plan as he is afraid if we treat less often, the cancer may get out of hand . I did attempt to reassure him that the data and approval of the extended interval of the pembrolizumab does NOT show any less efficiancy of the treatment. He request to continue the treatment at every 3 weeks. Past Medical History: Coronary artery disease Deep vein thrombosis Degenerative arthritis Hyperlipidemia Hypertension Peripheral vascular disease Type II diabetes His medical illnesses include hypertension, hyperlipidemia, type 2 diabetes, coronary artery disease, peripheral vascular disease, and degenerative arthritis. Past Surgical History: Heart by-pass - quadruple bypass Left femoral neck biopsy in 2019 Open reduction internal fixation Left hip-Dr Chin in 2019 Right upper lobectomy with mediastinal lymph node biopsy-Dr Rivers in 2016 He underwent coronary artery bypass surgery in 1996 and an arterial bypass procedure to the right leg in 1999. His only other surgery was an appendectomy in 1956. Allergies: PENICILLIN AND ALEVE Medications: Acetaminophen Extra Strength 1 (500 mg) Tablet Oral b.i.d. amLODIPine Besylate 1 Tablet (of 2.5 mg) Oral daily Atorvastatin Calcium 1 Tablet (of 20 mg) Oral daily B-12 1 Tablet (of 1000 mcg) Tablet Oral daily Bisacodyl 1 Tablet (of 5 mg) Tablet, enteric coated Oral daily PRN Carvedilol 1 (25 mg) Tablet Oral b.i.d. Cetirizine HCl 1 Tablet (of 10 mg) Oral daily Cholecalciferol 1 Capsule (of 2000 Units) Oral daily [employer] Mucus Extended Release 1 Tablet (of 600 mg) Tablet SR 12 HR Oral daily PRN Docusate Sodium 1 Tablet (of 100 mg) Oral daily Dulcolax Milk of Magnesia 30 mL (of 400 mg/5mL) Suspension Oral daily PRN Enoxaparin Sodium 80 mg (of 300 mg/3mL) Injection b.i.d. Famotidine 1 Tablet (of 20 mg) Tablet Oral b.i.d. Fish Oil 1 (1200 mg) Capsule Oral daily Flonase Suspension Nasal Gabapentin 1 Tablet (of 300 mg) Oral daily Jardiance 0.5 Tablet (of 12.5 ) Oral daily Lovastatin 1 Tablet (of 40 mg) Oral b.i.d. Meclizine HCl 1 Tablet (of 25 mg) Oral daily PRN MetFORMIN HCl 2 Tablet (of 500 mg) Oral b.i.d. Plavix 1 (75 mg) Tablet Oral daily Spiriva Respimat Aerosol, solution Inhalation Tamsulosin HCl 1 (0.4 mg) Capsule Oral daily Family History: His father following stomach surgery at age 66. His mother had diabetes and with kidney thought here at age 74. A half-brother had alcoholic cirrhosis and as a result of an injury. A sister of leukemia at age 6. 3 other sisters and one brother are still living and in good health. Social History: Mr. Sevilla is and he is retired. Mr. Sevilla quit smoking 16 years ago but had smoked 1.5 packs/day for 23 years. He quit drinking 10 years ago. He has indicated exposure to the following products: cigarettes. Mr. Sevilla reports the following support systems: lives with spouse, significant other, family, or friends, lives in own house, supportive family/friends willing to assist with needs, and adequate transportation available for expected visits. His diet consists of regular meals. He indicates his activity level as: daily activities. He is retired. He had previously smoked up to a pack and a half of cigarettes daily. He quit in 1996. He has had social alcohol use in the past. He has had no alcohol use for at least 10 years or more. Review Of Symptoms: Constitutional Denies fevers, chills, night sweats, excessive fatigue or weight loss. Allergic/Immunologic No reactions. Eyes Denies significant visual changes. No diplopia. No amaurosis. ENMT Denies changes in hearing, sore throat, mouth sores, difficulty or changes in swallowing ability, and/or sinus drainage. Endocrine No diabetes, thyroid disease or hormone replacement. Denies hot flashes or night sweats. Hematologic/Lymphatic Denies easy bruising or bleeding. The patient denies any tender or palpable lymph nodes. Breasts Respiratory Denies dyspnea on exertion, chest pain, or hemoptysis. Denies orthopnea. Cardiovascular Denies anginal chest pain, palpitations or orthopnea. Gastrointestinal Denies nausea, vomiting, GI bleeding, or constipation. Denies change in bowel habits and/or stool color, no heartburn or early satiety. Genitourinary (M) Denies hematuria, dysuria, increased frequency, urgency, hesitancy or incontinence. Musculoskeletal Denies joint pain, swelling or redness. No decreased range of motion. Integumentary Denies chronic rashes, inflammation, ulcerations or skin changes. Neurologic Denies headache, blurred vision, and no areas of focal weakness or numbness. Normal gait. No sensory problems. Psychiatric Denies insomnia, depression, giovanni or mood swings. Vital Signs: Performed on Feb 01, 2020 13:03 Height - 65.00 in Weight - 177.4 lbs (HIGH) BSA - 1.88 sq.m BMI - 29.52 Temperature - 97.0 F (LOW) Pulse - 80 /min Respiration - 19 /min BP - 139/65 mm(hg) O2 Sat - 88 % (LOW) Pain - 0,0 - Fully active, able to carry on all predisease activities without restrictions. (ECOG) Physical Examination: Constitutional Alert, oriented, no acute distress. Skin pink, warm and dry. Somewhat anxious today but no more than his normal when he is in the office. Head Normocephalic; atraumatic. Eyes Conjunctivae and sclerae are clear and without icterus. Pupils are reactive and equal. Neck Supple without masses or thyromegaly. No jugular venous distension. Hematologic/Lymphatic No petechiae or purpura. No tender or palpable lymph nodes in the cervical or supraclavicular areas. Respiratory Lungs are clear to auscultation without rhonchi or wheezing. Cardiovascular Regular rate and rhythm of heart without murmurs,clicks, gallops or rubs. Abdomen Non-tender, non-distended, no masses, ascites. Good bowel sounds noted in all quads. No guarding or rebound tenderness. No pulsatile masses. Back/Spine Non-tender to palpation. Extremities No visible deformities, no cyanosis, clubbing or edema. Pulses 4+ and equal bilaterally. Musculoskeletal No tenderness or swelling, normal range of motion without obvious weakness. Integumentary No rashes or lesions. Neurologic No sensory or motor deficits, normal cerebellar function, normal gait. Psychiatric Alert and oriented times three. Coherent speech. Verbalizes understanding of our discussions today. Laboratory:Test performed on Feb 01, 2020 10:55 Sodium 136 mmol/L TSH 2.78 uIU/mL Potassium 4.4 mmol/L Chloride 102 mmol/L CO2 24 mmol/L Anion Gap 14.4 BUN 17 mg/dL Creatinine 0.9 mg/dL Cr Clearance (Est) 78.23 mL/min Glucose 270 mg/dL Calcium 9.0 mg/dL Protein, Total 7.1 g/dL Albumin 4.2 g/dL Globulin 2.9 g/dL Bilirubin, Total 0.5 mg/dL ALT (SGPT) 16 U/L AST (SGOT) 16 U/L Alkaline Phosphatase 39 IU/L WBC 5.8 10 3/uL RBC 5.24 10 6/uL HGB 16.0 g/dL HCT 49.0 % MCV 93.5 fL MCH 30.5 pg MCHC 32.7 g/dL RDW 13.6 % Platelet Count 200 10 3/cmm MPV 9.9 fL Neutrophils 3.59 10 3/uL Lymphocytes 1.1 10 3/uL Monocytes 0.6 10 3/uL Eosinophils 0.4 10 3/uL Basophils 0.1 10 3/uL Neutrophil % 61.7 % Lymphocyte % 19.6 % Monocyte % 9.6 % Eosinophil % 7.4 % Basophils % 1.2 % NRBC % 0 % Impression: 1. Patient with nonsmall cell cancer (low-grade adenocarcinoma) involving the upper lobe of the right lung, stage IB (T2a, N0, M0). 2. He underwent right upper lobectomy with mediastinal lymph node biopsy on 04/29/2017. 3. He has hereditary hemochromatosis. He was found to be doubly heterozygous for the C282Y and the H63D mutations. He has had a very good response to phlebotomy, with his subsequent ferritin levels maintained at less than 50 ng/mL compared to a pretreatment level of greater than 600. 4. He has underlying lung disease including COPD and obstructive sleep apnea, and he has associated chronic hypoxia. 5. 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 His other medical illnesses include: 6. Hypertension. 7. Hyperlipidemia. 8. Type II diabetes. 9. Coronary artery disease. 10. Peripheral arterial disease. 11. Degenerative arthritis. In January 2019 he had presented with a deep vein thrombosis of the left arm. It appeared to have been an unprovoked thrombosis. He started anticoagulation with apixaban. His restaging PET/CT on 03/10/2019 showed evidence of a single site of metastatic disease in the form of a lytic bone lesion in the left femoral neck. He underwent prophylactic ORIF of the left hip on 03/17/2019. Pathology confirmed metastatic adenocarcinoma. Following recovery from the surgery, he was seen by Dr. Boggs for palliative radiation. He completed treatment on 04/18/2019 to a total dose of 3900 cGy. During that time, he had additional pathologic evaluation with the next generation sequencing study on his primary lung tumor. It showed low PD-L1 expression at 7%. The mutation burden was high. There were no actionable mutations identified. His restaging CT scans on 06/01/2019 showed no evidence for recurrent disease in the chest, abdomen, or pelvis. In the setting of a treated, solitary metastasis, he was recommended to continue on observation/expectant management. He continued anticoagulation with apixaban. On 07/04/2019 he was admitted to the hospital with multiple cerebral infarcts. It was suspected that it was another manifestation of cancer related hypercoagulability. As it occurred while on a therapeutic dosage of apixaban, his anticoagulation had been transitioned to Lovenox. He was initially transferred to [facility] skilled nursing for further rehabilitation, but he subsequently was able to return home. His restaging CT scans of the chest, abdomen, and pelvis on 07/25/2019 showed no obvious progression of the lung cancer. He had then opted to stop the Lovenox injections and restart anticoagulation with apixaban. He also was taking Plavix. He had subsequently developed further decline in cognitive function. His repeat brain MRI on 08/23/2019 showed areas of enhancement which were suspicious for worsening subacute infarcts. There were additional small enhancing lesions which were suspicious for metastases. With those findings his anticoagulation was transitioned back to Lovenox. A repeat PET/CT on 09/01/2019 showed a new small metastatic lesion in the right proximal femur. There was residual activity at the site of the metastatic lesion in the left femur. There were no other areas of abnormal activity noted on that study. He was then given palliative radiation to the right hip, completed on 09/28/2019 to a total dose of 3000 cGy. His repeat brain MRI on 09/16/2019 continued to show evidence of bilateral multilobar acute lacunar infarcts, but there was no convincing evidence for metastatic disease. He then continued anticoagulation with Lovenox, and during followup there was gradual improvement in his neurologic symptoms and in his performance status. On 11/09/2019 he began a trial of immunotherapy with pembrolizumab as a single modality. He tolerated the initial infusion of pembrolizumab with no adverse effects, and he then continued with cycle 2 on 11/30/2019. At this point he appears to be doing pretty well. He has had no apparent adverse effects with his treatment. He does report having some dizziness and episodes of orthostatic lightheadedness. He otherwise appears stable clinically. He has now completed 4 cycles and has been given the option to go to every 6 week treatments. Plan: 1. Proceed with cycle 5 of pembrolizumab at 200 mg by IV infusion. 2. He does not want to transition to every 6 week treatments at this time as I don't want the cancer to get ahead of the treatment . I did attempt to inform him that no difference between 3 and 6 week dosing has been reported as far as disease progression or response. I opted to just leave him at the 3 week dosing to reduce his anxiety. 3. Today's labs were reviewed and discussed with & Mrs Sevilla and a copy was given to them. WBC 5.8, Hgb 16.0, Platelets 200,000, ANC 3600. Creatinine is 0.9, RBS is 270, Lfts are normal. 4. WE did review his CT of the abdomen and pelvis with contrast from 01/21/2020. There were no acute findings reported. 5. We will plan to see Mr Sevilla back in 3 weeks for treatment with pembrolizumab only and then in 6 weeks with CBC, CMP, TSH with plans for treatment with pembrolizumab in 6 weeks. 6. Mr Sevilla was encouraged to call us in the interim if questions or problems arise. 7. I did request to mr Sevilla that he watch his memory to see if he notes any changes with remembering things to try to introduce concerns for his memory and to make sure it is not being affected by the pembolizumab. Signed By: Brian Lovell-, AOCNP Shorty Johansen MD <<Signature on File>>
== END 2020-02-20 23:59 | disposition home or self-care (01) ==
LOC: ONCMED 06:15
PROVIDERS: PCP Nurse Practitioner Family; Visit Provider Nurse Practitioner
DX: Z51.12 Encounter for antineoplastic immunotherapy (principal); Z51.11 Encounter for antineoplastic chemotherapy; C34.11 Malignant neoplasm of upper lobe, right bronchus or lung; E83.110 Hereditary hemochromatosis; J44.9 Chronic obstructive pulmonary disease, unspecified; G47.33 Obstructive sleep apnea (adult) (pediatric); R09.02 Hypoxemia; D75.1 Secondary polycythemia; I10 Essential (primary) hypertension; E78.5 Hyperlipidemia, unspecified; E11.9 Type 2 diabetes mellitus without complications; I25.10 Atherosclerotic heart disease of native coronary artery without angina pectoris; I73.9 Peripheral vascular disease, unspecified; M19.90 Unspecified osteoarthritis, unspecified site
CPT/HCPCS: 80053; 84443; 85025; 96372; 96413; 99214; J0897; J7050; J9271

== ENCOUNTER → 2020-02-07 13:02 | Outpatient (BNVA) | payer MEDICARE, SELFPAY | PROVIDERS: PCP Nurse Practitioner Family; Visit Provider Specialist | DX: G30.9 Alzheimer's disease, unspecified (principal); F02.80 Dementia in other diseases classified elsewhere, unspecified severity, without behavioral disturbance, psychotic disturbance, mood disturbance, and anxiety; Z87.891 Personal history of nicotine dependence | CPT/HCPCS: 99214 ==

== ENCOUNTER 2020-02-15 10:43 | Emergency (ER) | payer MEDICARE, SELFPAY ==
[2020-02-15 11:16] VITALS: BP 125/70; PULSE 64; RESP 14; TEMP 36.7; O2SAT 92; BMI 27.4
--- NOTE | 2020-02-15 11:57 | CT_ITS ---
WS: [id number] CT HEAD TECHNIQUE: Noncontrast CT of the head obtained from the skullbase to the vertex. CLINICAL INFORMATION: headache COMPARISON: Multiple prior examinations including CT September 17, 2019 and MRI September 16, 2019 DLP: 787.[address] scans at [facility] use at least one of these dose optimization techniques: automat ed exposure control; mA and/or kV adjustment per patient size (includes targeted exams where dose is matched to clinical indication); or iterative reconstruction. FINDINGS: No evidence of intracranial hemorrhage or mass effect. Ventricular system and basal cisterns are wang nt. Moderate small vessel changes with moderate parenchymal volume loss. Chronic lacunar infarcts in the left periventricular frontal white matter and right basal ganglia. Intracranial vascular calcific ation. Mastoid air cells well aerated. Mild mucosal thickening in the ethmoid air cells. Normal visualized s oft tissues. CT/CT head wo con* [id number] IMPRESSION: 1. Mild small vessel changes. Moderate parenchymal volume loss. 2. No evidence of intracranial hemorrhage or mass effect. 3. Chronic lacunar infarcts unchanged the prior examinations. 4. Dense intracranial vascular calcification. 5. No acute intracranial findings. Notified Huber Patel DO at 02/15/2020 12:47 PM.
--- NOTE | 2020-02-15 12:00 | XRR_ITS ---
PROCEDURE INFORMATION: Exam: XR Chest, 1 View Exam date and time: 02/15/2020 12:10 PM Age: 79 years old Clinical indication: Cough and dyspnea; Prior surgery; Surgery type: Right lung, open heart; Additional info: Dyspnea/cough TECHNIQUE: Imaging protocol: XR of the chest Views: 1 view. COMPARISON: CR XR chest 1V portable [id number] 01/21/2020 10:17 AM FINDINGS: Lungs: Minimal right basilar atelectasis or scar. No consolidation. Pleural space: Unremarkable. No pleural effusion. No pneumothorax. Heart/Mediastinum: Unremarkable. No cardiomegaly. Diaphragm: Stable right hemidiaphragm elevation. Bones/joints: Sternotomy. XR/XR chest 1V portable [id number] IMPRESSION: No acute findings.
--- NOTE | 2020-02-15 12:01 | ECG_ITS ---
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 Measurements Intervals [place] Rate: 62 P: 30 DE: 182 QRS: 35 QRSD: 89 T: 75 QT: 374 QTc: 382 Interpretive Statements SINUS RHYTHM POSSIBLE ANTERIOR MYOCARDIAL INFARCTION , OF INDETERMINATE AGE [30 ms Q WAVE IN V3/V4, OR R < 0.2 mV IN V4] Compared to ECG 09/17/2019 13:01:18 No significant changes Electronically Signed On 02-15-2020 18:12:28 CDT by Joaquín Nagel M.D. [id number] f
[2020-02-15 12:23] LABS: Basophils # 0.1 10^3/uL (0.0-0.1); Basophils % 0.9 %; Eosinophils # 0.4 10^3/uL (0.0-0.8); Eosinophils % 6.7 %; Hematocrit 51.1 % (42.0-52.0); Hemoglobin 16.5 g/dL (11.7-16.6); Lymphocytes # 1.1 10^3/uL (0.8-4.8); Lymphocytes % 18.9 %; Mean Corpuscular HGB Conc 32.3 g/dL (30.0-36.0); Mean Corpuscular Hemoglobin 30.3 pg (28.0-34.0); Mean Corpuscular Volume 93.9 fL (80-94); Mean Platelet Volume 9.6 fL (7.4-10.4); Monocytes # 0.5 10^3/uL (0.2-0.9); Neutrophils # 3.64 10^3/uL (1.8-7.7); Neutrophils % 64.3 %; Nucleated Red Blood Cells % 0 %; Platelet Count 198 10^3/cmm (130-400); Red Blood Count 5.44 10^6/uL (4.1-5.3); Red Cell Distribution Width 13.8 % (12.1-15.1); White Blood Count 5.7 10^3/uL (4.0-10.0)
--- NOTE | 2020-02-15 12:26 | ED_ITS ---
HPI - Neuro Symptoms/Deficit General: Chief Complaint: Neuro Symptoms/Deficit Stated Complaint: H/A AMS Time Seen by Provider: 02/15/20 11:28 History of Present Illness: HPI Narrative: 79-year-old male comes in complaining of a headache that began yesterday reports the headache is more of a frontal headache does not affect his vision he has no chest pain no shortness of breath he has no focal neurologic deficits he is able to walk and speak without difficulty is not had any weakness in the arms or legs. Does have a history of hypertension his blood pressure initially when he came in was quite elevated. Fortunately also has history of lung cancer with metastasis to the bone. Onset (ago): day(s) Location: other (Headache) History of same: No Severity: moderate Quality: constant Relieving factors: none Exacerbating factors: none Context: gradual onset On Anticoagulants: No Associated symptoms: Deny chest pain, cough, diaphoresis, fevers/chills, headache(s), anorexia, malaise, nausea, seizures, short of breath, syncope, tingling, vertigo, vomiting, weakness or other Treatments Prior to Arrival: none Review of Systems Const: Denies: malaise or diaphoresis ENMT: Denies: throat pain, ear or mastoid pain, nasal discharge or nasal congestion Card: Denies: chest pain or syncope Resp: Denies: dyspnea, productive cough or non-productive cough GI: Denies: nausea or vomiting : Denies: flank pain, dysuria, urinary frequency or urinary urgency Skin/Breast: Denies: rash or pruritus Neuro: Denies: headache(s) or vertigo PFSH ED PFSH: Medical History (Updated 02/15/20 @ 13:20 by Huber Patel DO) Accelerated hypertension Allergic rhinitis Atherosclerosis of coronary artery of [place] heart BPH (benign prostatic hyperplasia) Carotid artery disease 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 Chronic anticoagulation COPD (chronic obstructive pulmonary disease) Coronary artery disease DJD (degenerative joint disease) DVT (deep venous thrombosis) GERD (gastroesophageal reflux disease) Gout Hemochromatosis Hyperlipidemia Hypertension Lung cancer 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 Obstructive sleep apnea Peripheral arterial disease with history of revascularization Peripheral neuropathy Type 2 diabetes mellitus Surgical History History of left hip hemiarthroplasty Family History Mother Diabetes Social History Smoking and tobacco status: former smoker History of recent travel: No Physical Exam Const: COMMON NORMALS: no acute distress GENERAL APPEARANCE: cooperative and comfortable ORIENTATION/CONSCIOUSNESS: Yes awake, Yes oriented to person, Yes oriented to place and Yes oriented to time HENMT: COMMON NORMALS: normocephalic and atraumatic HEAD & SCALP: normocephalic and atraumatic Eye: COMMON NORMALS: Equal, round and reactive pupils present, EOMs intact bilaterally, conjunctivae normal and no scleral icterus CONJUNCTIVA: Yes conjunctivae normal PUPIL: Yes Equal, round and reactive pupils present Neck/C-Spine: COMMON NORMALS: full ROM, no lymphadenopathy, supple and no JVD Lymph: LYMPHATIC: no lymphadenopathy noted and no lymphedema noted Resp: COMMON NORMALS: normal respiratory effort, No retractions, No use of accessory muscles and clear to auscultation bilaterally AUSCULTATION: clear to auscultation bilaterally Cardio: COMMON NORMALS: no JVD, regular rate, regular rhythm and No murmurs present (Cardio) RATE: regular rate RHYTHM: regular rhythm GI: COMMON NORMALS: Soft to palpation and No hepatosplenomegaly present AUSCULTATION: Yes normoactive bowel sounds PALPATION: Yes Soft to palpation, No Tenderness to palpation present (GI), No Guarding due to palpation present (GI) and Yes No hepatosplenomegaly present Extremity: COMMON NORMALS: normal to inspection, capillary refill normal, no clubbing, cyanosis or edema, no calf tenderness and no pedal edema Neuro: SENSORIUM/ORIENTATION: Yes oriented to person, Yes oriented to place and Yes oriented to time Skin: COMMON NORMALS: no rashes or lesions noted GENERAL SKIN EXAM: no rashes or lesions noted Course Vital Signs: Vital signs: Vital Signs Temperature 98.0 F 02/15/20 11:16 Pulse Rate 65 02/15/20 13:40 Respiratory Rate 18 02/15/20 13:40 Blood Pressure 132/71 02/15/20 13:40 Pulse Oximetry 92 02/15/20 13:40 MDM - Neuro Symptoms/Deficit MDM Narrative: Medical decision making narrative: CT head is unremarkable for bleed or large mass. Patient is feeling much better would prefer to go home we will discharge home encourage follow-up with oncology if this persists he may need to get an MRI of the brain Lab Data: Labs: Lab Results 02/15/20 02/15/20 02/15/20 Range/Units 12:14 12:14 12:14 WBC 5.7 (4.0-10.0) 10^3/ uL RBC 5.44 H (4.1-5.3) 10^6/u L Hgb 16.5 (11.7-16.6) g/dL Hct 51.1 (42.0-52.0) % MCV 93.9 (80-94) fL MCH 30.3 (28.0-34.0) pg MCHC 32.3 (30.0-36.0) g/dL RDW 13.8 (12.1-15.1) % Plt Count 198 (130-400) 10^3/c mm MPV 9.6 (7.4-10.4) fL Neut % (Auto) 64.3 % Lymph % (Auto) 18.9 % [place]lin % (Auto) 9.0 % Eos % (Auto) 6.7 % Baso % (Auto) 0.9 % Neut # (Auto) 3.64 (1.8-7.7) 10^3/u L Lymph # (Auto) 1.1 (0.8-4.8) 10^3/u L [place]lin # (Auto) 0.5 (0.2-0.9) 10^3/u L Eos # (Auto) 0.4 (0.0-0.8) 10^3/u L Baso # (Auto) 0.1 (0.0-0.1) 10^3/u L Nucleated RBC % (a uto) 0 % Nucleated RBCs # 0.0 /100WBC Sodium 138 (136-145) mmol/L Potassium 4.6 (3.5-5.1) mmol/L Chloride 100 (98-107) mmol/L Carbon Dioxide 27 (22-29) mmol/L Anion Gap 15.6 (5-19) BUN 19 (8-23) mg/dL Creatinine 1.1 (0.7-1.2) mg/dL GFR Calculation Not Reportable Glucose 143 H (65-115) mg/dL Calculated Osmolal ity 285 (285-295) mOsm/k g Calcium 10.0 (8.5-10.5) mg/dL Magnesium 2.1 (1.7-2.3) mg/dL Total Bilirubin 0.6 (0.15-1.2) mg/dL AST 15 (0-40) U/L ALT 15 (0-41) U/L Alkaline Phosphata se 40 (40-130) IU/L Troponin T Baselin e 12 (0-15) ng/L Total Protein 7.3 (6.6-8.7) g/dL Albumin 4.5 (3.5-5.2) g/dL Globulin 2.8 (1.3-4.6) g/dL Discharge Plan Discharge Patient Disposition: Home Clinical Impression: Headache, Hypertension, Lung cancer Condition: Stable Prescriptions: No Action hydrocodone-acetaminophen 5-325 mg tablet 1 tab PO PRN RF: 0 donepezil 5 mg tablet 5 mg PO DAILY Qty: 30 RF: 5 carvedilol 25 mg Tablet 25 mg PO BID RF: 0 clopidogrel [Plavix] 75 mg Tablet 75 mg PO DAILY RF: 0 famotidine 20 mg Tablet 20 mg PO BID PRN (Reason: unknown) RF: 0 tamsulosin [Flomax] 0.4 mg Capsule 0.4 mg PO DAILY RF: 0 gabapentin 300 mg Capsule 300 mg PO DAILY RF: 0 allopurinol 300 mg Tablet 300 mg PO DAILY RF: 0 metformin 500 mg Tablet Extended Release 24 Hr 1,000 mg PO BID RF: 0 vitamin [id number] acid 0.5-1 mg Tablet 1 tab PO DAILY RF: 0 cholecalciferol (vitamin D3) [Vitamin D3] 2,000 unit Tablet 2,000 unit PO DAILY RF: 0 omega 2-auq-hxr-fish oil [Fish Oil] 1,000 mg (120 mg-180 mg) Capsule 1 cap PO DAILY RF: 0 Jardiance 25 mg Tablet 12.5 mg PO DAILY RF: 0 meclizine 25 mg tablet 25 - 50 mg PO DAILY PRN (Reason: dizziness) RF: 0 lovastatin 40 mg Tablet 40 mg PO BID RF: 0 fluticasone propionate [Flonase Allergy Relief] 50 mcg/actuation Benjamin,Suspension 2 spray INTRANASAL DAILY PRN (Reason: unknown) RF: 0 guaifenesin [Mucinex] 600 mg Tablet Extended Release 12hr 600 mg PO PRN RF: 0 Spiriva Respimat 1.25 mcg/actuation Mist 2 puff INHALATION DAILY PRN (Reason: unknown) RF: 0 docusate sodium 100 mg capsule 100 mg PO DAILY PRN (Reason: Constipation) RF: 0 enoxaparin [Lovenox] 80 mg/0.8 mL Syringe 80 mg SUBCUT Q12H 30 Days Qty: 48 RF: 0 Discharge Orders: Discharge Order (Routine); Ordered 02/15/20 Ordered By: Huber Patel Referrals: Aislinn Beebe, ANTONIO [Primary Care Provider] - Discharge Diet: Usual diet Discharge Activity: Resume usual activity Activity Restrictions/Additional Instructions: If you have recurrent headaches follow-up with Dr. 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
[2020-02-15 12:39] LABS: Alanine Aminotransferase 15 U/L (0-41); Albumin Level 4.5 g/dL (3.5-5.2); Alkaline Phosphatase 40 IU/L (40-130); Anion Gap 15.6 (5-19); Aspartate Amino Transferase 15 U/L (0-40); Blood Urea Nitrogen 19 mg/dL (8-23); Carbon Dioxide 27 mmol/L (22-29); Chloride 100 mmol/L (98-107); Globulin 2.8 g/dL (1.3-4.6); Glucose 143 mg/dL (65-115); Magnesium 2.1 mg/dL (1.7-2.3); Osmolality Calculated 285 mOsm/kg (285-295); Potassium 4.6 mmol/L (3.5-5.1); Sodium 138 mmol/L (136-145); Total Bilirubin 0.6 mg/dL (0.15-1.2); Total Protein 7.3 g/dL (6.6-8.7)
[2020-02-15 12:41] LABS: Troponin(5th) Baseline 12 ng/L (0-15)
[2020-02-15 13:21] VITALS: RESP 18; O2SAT 94
[2020-02-15] MEDS: morphine 4 mg/mL SDV 1 mL 2 MG IVP (13:21)
[2020-02-15] MEDS: metoclopramide 5 mg/mL SDV 2 mL 10 MG IVP (13:22)
[2020-02-15 13:32] VITALS: BP 132/71; PULSE 60; RESP 18; O2SAT 93
[2020-02-15 13:40] VITALS: BP 132/71; PULSE 65; RESP 18; O2SAT 92
== END 2020-02-15 13:43 | disposition home or self-care (01) ==
PROVIDERS: Emergency Provider Family Medicine; PCP Nurse Practitioner Family
DX: R51 Headache (principal); I10 Essential (primary) hypertension; C34.90 Malignant neoplasm of unspecified part of unspecified bronchus or lung; Z79.02 Long term (current) use of antithrombotics/antiplatelets; I25.10 Atherosclerotic heart disease of native coronary artery without angina pectoris; J44.9 Chronic obstructive pulmonary disease, unspecified; E78.5 Hyperlipidemia, unspecified; E11.42 Type 2 diabetes mellitus with diabetic polyneuropathy; Z87.891 Personal history of nicotine dependence
CPT/HCPCS: 12345; 36415; 70450; 71045; 80053; 83735; 84484; 85025; 93005; 96374; 96375; 99283; 99284; J2270; J2765

== ENCOUNTER 2020-03-14 06:21 | Outpatient (RCR) | payer MEDICARE, SELFPAY ==
--- NOTE | 2020-03-06 07:34 | MR_ITS ---
WS: [id number] MRI BRAIN WITH AND WITHOUT CONTRAST HISTORY: NEW ONSET DAILY HEADACHES, HEMOCHROMATOSIS/LUNG CANCER COMPARISON: 09/16/2019 TECHNIQUE: Multiplanar imaging performed through the brain with Prohance 17 ml's IV. No acute infarcts. Moderate amount of increased T2 and FLAIR signal in the periventricular and suprav entricular white matter from chronic ischemic disease. No recent hemorrhage. Prior lacunar infarct in the medial inferior RIGHT temporal occipital region. No enhancement. Ventricles and extra-axial spaces are prominent on the basis of central and peripheral atrophy. Clivus and pituitary gland are normal. Visualized posterior fossa and brainstem are also normal. Postcontrast images are negative for masses or vascular malformations. Normal enhancement of the dural venous sinuses. Visualized sycuan of [place] is normal. Paranasal sinuses: Well aerated with no significant disease. Mastoid air cells: Normal. Calvarium and scalp: Normal. MR/MR head wo/w con [id number] IMPRESSION: 1. No metastatic disease or acute infarcts. 2. Moderate atrophy and chronic ischemic disease. Prior lacunar infarct in the RIGHT temporal occipital region.
[2020-03-14 12:30] LABS: Basophils # 0.1 10^3/uL (0.0-0.1); Basophils % 0.9 %; Eosinophils # 0.3 10^3/uL (0.0-0.8); Hematocrit 50.7 % (42.0-52.0); Hemoglobin 17.1 g/dL (11.7-16.6); Lymphocytes # 1.2 10^3/uL (0.8-4.8); Lymphocytes % 19.2 %; Mean Corpuscular HGB Conc 33.7 g/dL (30.0-36.0); Mean Corpuscular Hemoglobin 30.6 pg (28.0-34.0); Mean Corpuscular Volume 90.9 fL (80-94); Mean Platelet Volume 9.2 fL (7.4-10.4); Monocytes # 0.6 10^3/uL (0.2-0.9); Monocytes % 8.7 %; Neutrophils # 4.23 10^3/uL (1.8-7.7); Nucleated Red Blood Cells % 0 %; Platelet Count 210 10^3/cmm (130-400); Red Blood Count 5.58 10^6/uL (4.1-5.3); Red Cell Distribution Width 13.5 % (12.1-15.1); White Blood Count 6.4 10^3/uL (4.0-10.0)
[2020-03-14 12:58] LABS: Alanine Aminotransferase 15 U/L (0-41); Albumin Level 4.4 g/dL (3.5-5.2); Alkaline Phosphatase 43 IU/L (40-130); Anion Gap 15.8 (5-19); Aspartate Amino Transferase 13 U/L (0-40); Blood Urea Nitrogen 21 mg/dL (8-23); Calcium 10.4 mg/dL (8.5-10.5); Carbon Dioxide 24 mmol/L (22-29); Chloride 101 mmol/L (98-107); Globulin 2.7 g/dL (1.3-4.6); Glucose 141 mg/dL (65-115); Osmolality Calculated 287 mOsm/kg (285-295); Potassium 4.8 mmol/L (3.5-5.1); Sodium 136 mmol/L (136-145); Thyroid Stimulating Hormone 2.28 uIU/mL (0.27-4.20); Total Bilirubin 0.8 mg/dL (0.15-1.2); Total Protein 7.1 g/dL (6.6-8.7)
--- NOTE | 2020-03-15 08:03 | ONC FU_ITS ---
Dr. Chadwick Patient Follow-Up Note Patient: Lynnette Sevilla Unit #: [id number]: [id number] Dicatated By: Shorty Chadwick M.D.Date of Visit:Mar 14, 2020 Onc Med Follow-up/Prog Note Chief Complaint: Hemochromatosis/lung cancer. 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 His disease was stage IB (T2a, N0, M0) at initial diagnosis, but with subsequent progression to stage TIGIST (M1b). He also has hereditary hemochromatosis. In February [address] Tyler with persistent cough. His evaluation included chest CT on 03/04/2017. It showed a spiculated density in the medial aspect of the anterior segment of the right upper lobe. It measured 1.8 x 2.4 x 1.8 cm and it was new compared to a previous study from November 2013. There was no associated mediastinal or hilar adenopathy, and there was no evidence of liver or adrenal metastases. He underwent bronchoscopy on 04/06/2017. There were no endobronchial lesions identified. The lesion was found to be avid by PET/CT. There was no evidence of metastatic involvement. He underwent right upper lobectomy with mediastinal lymph node biopsy on 04/29/2017. Pathology showed low-grade (grade 1-2) adenocarcinoma measuring 3.2 x 2.4 cm. There was penetration into visceral pleura and there was evidence of lymphovascular space invasion. The margins of resection were free, and there was no involvement in 1 mediastinal lymph node, in 1 lymph node at the right mainstem bronchus, and in 2 hilar lymph nodes. He has continued on observation/expectant management following the surgery, as there appeared to be no indication for adjuvant chemotherapy. I had initially seen him in October 2012 in regard to elevated hemoglobin/hematocrit levels and elevated serum iron. His evaluation at that time showed his hemoglobin elevated at 18.1 g with hematocrit 52%. White count and platelet count were normal. The serum iron was in the upper normal range at 145 mcg/dL with transferrin saturation 30.8%. The serum ferritin, though, was elevated at 606 ng/mL. He had additional evaluation including an erythropoietin level which was in the normal range at 12 mIU/mL. A MICHAEL 2 gene mutation study was negative. The HFE gene analysis showed double heterozygosity for the C282Y and the H63D mutations, consistent with hereditary hemochromatosis. He has been managed on a phlebotomy program. Surveillance chest CT on 12/07/2018 showed stable postoperative changes from prior right upper lobectomy. There was long-term stability of left upper lower lobe nodules. There was chronic emphysema. There was no evidence for recurrent or metastatic neoplastic process. He continued observation/expectant management for the lung cancer. He had then presented to Dr. Tyler's office with swelling and redness in the left arm, in the area of the antecubital fossa. Venous Doppler of the left arm on 02/11/2019 showed extensive occlusive thrombus in the left basilic vein. All other veins of the left upper extremity appeared free of thrombus. He was started on anticoagulation with apixaban. He was seen here for follow-up on 02/25/2019. He then had a restaging PET/CT on 03/10/2019. It showed interval development of abnormal activity in a lytic lesion in the left femoral neck, suspicious for metastatic disease. There was interval resolution of the small right upper lobe lung mass. There were no other areas of abnormal uptake on that study. With those findings, he was referred to Dr. Chin. On 03/17/2019 he underwent prophylactic open reduction with interval fixation of the left hip. Pathology on the bone fragments did confirm metastatic carcinoma consistent with the previous diagnosis of pulmonary infiltrating adenocarcinoma. Following recovery from the surgery he was seen by Dr. Boggs for palliative radiation. He completed treatment on 04/18/2019 to a total dose of 3900 cGy. He tolerated the treatment well. In the meantime, I had also requested a next generation sequencing study. It was performed on the original lung tumor, as the specimen from the left femur was insufficient for analysis. That study showed low PD-L1 expression at 7%. The mutation burden, though, was high. The tumor was negative for EGFR, BRAF, and KRAS mutations, and it also tested negative for the ALK and ROS1 rearrangements. The NTRK fusion also was not detected. I had seen him for a follow-up visit on 05/02/2019. He had restaging CT scans on 06/01/2019 showed no evidence for recurrent disease in the chest, abdomen, or pelvis. In the setting of a treated, solitary metastasis, he was recommended to continue on observation/expectant management. On 06/28/2019 he was seen in the emergency room with complaints of dizziness. CT of the head with and without contrast showed no acute findings. He was diagnosed with vestibular neuronitis. On 07/04/2019 he was admitted to the hospital after returning to the emergency room with acute mental status changes. His repeat head CT showed a 10 mm focal area of low-attenuation in the left frontal lobe which appeared new from the recent study. Was felt to possibly represent a subacute infarct. Further evaluation with brain MRI showed multifocal patchy areas of acute ischemia involving the YUNG territories bilaterally. The largest area of ischemia measured approximately 1 cm. There was no evidence of mass-effect or midline shift. The clinical presentation appeared most consistent with cancer related hypercoagulability. As it occurred while on a therapeutic dose of apixaban, his anticoagulation was transitioned to therapeutic Lovenox. His echocardiogram showed normal left ventricular cavity size and systolic function with estimated ejection fraction at 60%. There were no significant valvular abnormalities noted. There appeared to be no significant change compared to her previous study from July 2018. His bilateral carotid Doppler studies showed just moderate atheromatous plaque bilaterally. Head MRA showed no evidence of high-grade proximal stenosis or aneurysm. He was discharged to [facility] for rehab. At that point, he was still having significant expressive aphasia, but his confusion had improved significantly. He subsequently was able to return home. Restaging CT scans of the chest, abdomen, and pelvis on 07/25/2019 showed stable 5 mm noncalcified pulmonary nodule in the left upper lobe and a 3 mm noncalcified nodule in the left lower lobe. There was no mediastinal or hilar adenopathy. A few scattered hypodensities throughout the liver are too small to characterize but similar to prior studies. A new 7 mm hypodensity was noted in the lower pole of the right kidney. There was increased density within the lumen of a contracted gallbladder, suspicious for stones and/or chronic cholecystitis. There was no osteoblastic or osteolytic bone disease identified. On 08/03/2019 he was seen in the emergency room with dizziness. He has repeat noncontrast head CT showed atrophy and chronic deep white matter ischemic change with no acute intracranial abnormality identified. He was diagnosed with vertigo and treated with meclizine. I had seen him for a follow-up visit on 08/08/2019. He had opted to stop the Lovenox injections, and he had restarted anticoagulation with apixaban. He also was taking Plavix. He was still having some difficulty with his speech and he was having some confusion at times and some difficulty with memory. Subsequent to that visit, his had called and reported that his memory and confusion were continuing to worsen. A repeat brain MRI on 08/23/2019 showed multifocal areas of abnormal diffusion abnormalities and flair signal abnormalities. It was noted to predominantly involve the left hippocampal formation with additional more focal diffusion signal abnormalities extending towards the temporal occipital junction posteriorly. That finding appeared to be most consistent with worsening subacute infarcts. Also noted, though, were additional cortical areas of very subtle enhancement throughout the brain which were suspicious for metastatic lesions. The most concerning were in the left frontal vertex. With those findings, I was able to get his anticoagulation transition back to Lovenox. A repeat PET/CT on 09/01/2019 showed interval development of a small well-circumscribed lytic lesion in the upper femoral neck on the right measuring up to 19 mm with SUV 7.3. A small amount of fracture was noted along the posterior upper border of the left greater trochanter. Abnormal increased activity was noted along the site of the previous suspected metastatic lesion in the left femoral neck with a maximum SUV 6.2, similar to the previous study. There were no other areas of significant abnormal activity identified. Given the PET/CT findings, he was then given palliative radiation to the right hip, completed on 09/28/2019 to a total dose of 3000 cGy. He tolerated the treatment well. In the meantime, a repeat brain MRI on 09/16/2019 again showed numerous bilateral multi lobar acute lacunar infarcts. The previously described areas of enhancement are felt to most likely be related to ischemia and not to metastatic disease. At that time there was felt to be no convincing evidence for metastatic disease. I had seen him for a follow-up visit on 03/2020. At that point he was beginning to show some recovery. I had discussed options for further treatment of the lung cancer. It was quite clear that he was not interested in attempting any chemotherapy. He did agree to continue anticoagulation with Lovenox, and ultimately he also agreed to a trial of immunotherapy. His other medical illnesses include hypertension, hyperlipidemia, type 2 diabetes, coronary artery disease, peripheral vascular disease, and degenerative arthritis. He underwent coronary artery bypass surgery in 1996 and he underwent an arterial bypass procedure to the right leg in 1999. In 2013 he was found to have significant hypoxemia. On evaluation he was found to have COPD and obstructive sleep apnea. 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 Also noted was calcific plaque at the origins of the common iliac arteries at 54% on the left and 60% on the right. He has a history of smoking 1-1 1/2 packs of cigarettes daily, but he quit smoking in 1996. INTERIM HISTORY: On 11/09/2019 he began a trial of immunotherapy with pembrolizumab as a single modality. He tolerated the initial infusion of pembrolizumab with no adverse effects, and he then continued treatment at 3-week intervals. As of 02/22/2020 he completed his 6th cycle. As yet he has not had any assessment of response. He is seen for a follow-up visit. He says he is feeling okay except he has developed an itchy skin eruption on his back. He says he could use more energy. He is doing light work. ECOG score is 1. He has good appetite. He has no fever or night sweats. He is still somewhat forgetful, but he has had continued improvement in his memory since he was started on donepezil by Dr. Hilton. Recently has been having some pain in his right ear. His breathing has been okay, though he does have some shortness of breath and he still has some cough. He does not complain of chest pain. He has been having diarrhea a lot, and he has frequent urination. He continues to have some pain in the left hip. He has no other joint or bone pain. He has had a few headaches. He has no focal neurologic symptoms. Medications: Acetaminophen Extra Strength 1 (500 mg) Tablet Oral b.i.d., amLODIPine Besylate 1 Tablet (of 2.5 mg) Oral daily, Atorvastatin Calcium 1 Tablet (of 20 mg) Oral daily, B-12 1 Tablet (of 1000 mcg) Tablet Oral daily, Bisacodyl 1 Tablet (of 5 mg) Tablet, enteric coated Oral daily PRN, Carvedilol 1 (25 mg) Tablet Oral b.i.d., Cetirizine HCl 1 Tablet (of 10 mg) Oral daily, Cholecalciferol 1 Capsule (of 2000 Units) Oral daily, [employer] Mucus Extended Release 1 Tablet (of 600 mg) Tablet SR 12 HR Oral daily PRN, Docusate Sodium 1 Tablet (of 100 mg) Oral daily, Dulcolax Milk of Magnesia 30 mL (of 400 mg/5mL) Suspension Oral daily PRN, Enoxaparin Sodium 80 mg (of 300 mg/3mL) Injection b.i.d., Famotidine 1 Tablet (of 20 mg) Tablet Oral b.i.d., Fish Oil 1 (1200 mg) Capsule Oral daily, Flonase Suspension Nasal, Gabapentin 1 Tablet (of 300 mg) Oral daily, Jardiance 0.5 Tablet (of 12.5 ) Oral daily, Lovastatin 1 Tablet (of 40 mg) Oral b.i.d., Meclizine HCl 1 Tablet (of 25 mg) Oral daily PRN, MetFORMIN HCl 2 Tablet (of 500 mg) Oral b.i.d., Plavix 1 (75 mg) Tablet Oral daily, Spiriva Respimat Aerosol, solution Inhalation, Tamsulosin HCl 1 (0.4 mg) Capsule Oral daily Allergies: PENICILLIN AND ALEVE Review of Systems: Constitutional - He says he could use more energy. He is doing light work. Appetite is good and weight is stable. No fever, night sweats, or hot flashes. ECOG score is 1, ENMT - No sinus congestion/drainage. He has been having pain in his right ear. No mouth sores. No sore throat or difficulty swallowing, Hematologic/Lymphatic - He has easy bruising, Respiratory - He has some shortness of breath, but his breathing has been okay. He also has some cough. No pleuritic pain or hemoptysis, Cardiovascular - No angina pain. No palpitations, Gastrointestinal - No nausea or vomiting. No heartburn or acid reflux. He has been having a lot of diarrhea. No blood in the stool or black stools, Genitourinary (M) - No dysuria or hematuria. He has urinary frequency. No urgency or incontinence, Musculoskeletal - He still has pain in his left hip. He has no other joint or bone pain, Integumentary - He has developed an itchy skin rash on his back, Neurologic - He has had a few headaches. No dizziness. No numbness or tingling. No other focal neurologic symptoms, Psychiatric - No anxiety or depression. No insomnia. Vital Signs: Performed on Mar 14, 2020 13:36 Height - 65.00 in Weight - 175.0 lbs (LOW) BSA - 1.87 sq.m BMI - 29.12 Temperature - 97.8 F (LOW) Pulse - 65 /min Respiration - 24 /min BP - 128/69 mm(hg) O2 Sat - 90 % (LOW) Pain - 6 Physical Examination: Constitutional - He looks pretty good generally, Eyes - Sclerae nonicteric. Conjunctivae clear, ENMT - There are no lesions noted in the oral cavity, Hematologic/Lymphatic - No cervical, clavicular, or axillary adenopathy, Respiratory - Lungs sound clear with some decrease in air movement bilaterally, Cardiovascular - Heart rhythm is regular. There is no murmur, gallop, or rub noted, Abdomen - Soft. Liver and spleen are not enlarged. There is no abdominal mass or ascites noted and there is no inguinal adenopathy, Extremities - No edema, Integumentary - There is a skin eruption comprised of erythematous lesions scattered throughout the back, Neurologic - No focal neurologic deficits noted. Lab/Imaging: Test performed on Mar 14, 2020 12:20 Sodium 136 mmol/L TSH 2.28 uIU/mL Potassium 4.8 mmol/L Chloride 101 mmol/L CO2 24 mmol/L Anion Gap 15.8 BUN 21 mg/dL Creatinine 1.2 mg/dL Cr Clearance (Est) 57.88 mL/min Glucose 141 mg/dL Osmolality - Calculated 287 mOsm/kg Calcium 10.4 mg/dL Protein, Total 7.1 g/dL Albumin 4.4 g/dL Globulin 2.7 g/dL Bilirubin, Total 0.8 mg/dL ALT (SGPT) 15 U/L AST (SGOT) 13 U/L Alkaline Phosphatase 43 IU/L WBC 6.4 10 3/uL RBC 5.58 10 6/uL HGB 17.1 g/dL HCT 50.7 % MCV 90.9 fL MCH 30.6 pg MCHC 33.7 g/dL RDW 13.5 % Platelet Count 210 10 3/cmm MPV 9.2 fL Neutrophils 4.23 10 3/uL Lymphocytes 1.2 10 3/uL Monocytes 0.6 10 3/uL Eosinophils 0.3 10 3/uL Basophils 0.1 10 3/uL Neutrophil % 66.0 % Lymphocyte % 19.2 % Monocyte % 8.7 % Eosinophil % 5.0 % Basophils % 0.9 % NRBC % 0 % Impression: 1. Patient with nonsmall cell cancer (low-grade adenocarcinoma) involving the upper lobe of the right lung, stage IB (T2a, N0, M0). 2. He underwent right upper lobectomy with mediastinal lymph node biopsy on 04/29/2017. 3. He has hereditary hemochromatosis. He was found to be doubly heterozygous for the C282Y and the H63D mutations. He has had a very good response to phlebotomy, with his subsequent ferritin levels maintained at less than 50 ng/mL compared to a pretreatment level of greater than 600. 4. He has underlying lung disease including COPD and obstructive sleep apnea, and he has associated chronic hypoxia. 5. 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 His other medical illnesses include: 6. Hypertension. 7. Hyperlipidemia. 8. Type II diabetes. 9. Coronary artery disease. 10. Peripheral arterial disease. 11. Degenerative arthritis. In January 2019 he had presented with a deep vein thrombosis of the left arm. It appeared to have been an unprovoked thrombosis. He started anticoagulation with apixaban. His restaging PET/CT on 03/10/2019 showed evidence of a single site of metastatic disease in the form of a lytic bone lesion in the left femoral neck. He underwent prophylactic ORIF of the left hip on 03/17/2019. Pathology confirmed metastatic adenocarcinoma. Following recovery from the surgery, he was seen by Dr. Boggs for palliative radiation. He completed treatment on 04/18/2019 to a total dose of 3900 cGy. During that time, he had additional pathologic evaluation with the next generation sequencing study on his primary lung tumor. It showed low PD-L1 expression at 7%. The mutation burden was high. There were no actionable mutations identified. His restaging CT scans on 06/01/2019 showed no evidence for recurrent disease in the chest, abdomen, or pelvis. In the setting of a treated, solitary metastasis, he was recommended to continue on observation/expectant management. He continued anticoagulation with apixaban. On 07/04/2019 he was admitted to the hospital with multiple cerebral infarcts. I had suspected that it was another manifestation of cancer related hypercoagulability. As it occurred while on a therapeutic dosage of apixaban, his anticoagulation had been transitioned to Lovenox. He was initially transferred to [facility] correction for further rehabilitation, but he subsequently was able to return home. His restaging CT scans of the chest, abdomen, and pelvis on 07/25/2019 showed no obvious progression of the lung cancer. He had then opted to stop the Lovenox injections and restart anticoagulation with apixaban. He also was taking Plavix. He had subsequently developed further decline in cognitive function. His repeat brain MRI on 08/23/2019 showed areas of enhancement which were suspicious for worsening subacute infarcts. There were additional small enhancing lesions which were suspicious for metastases. With those findings his anticoagulation was transitioned back to Lovenox. A repeat PET/CT on 09/01/2019 showed a new small metastatic lesion in the right proximal femur. There was residual activity at the site of the metastatic lesion in the left femur. There were no other areas of abnormal activity noted on that study. He was then given palliative radiation to the right hip, completed on 09/28/2019 to a total dose of 3000 cGy. His repeat brain MRI on 09/16/2019 continued to show evidence of bilateral multilobar acute lacunar infarcts, but there was no convincing evidence for metastatic disease. He then continued anticoagulation with Lovenox, and during followup there was gradual improvement in his neurologic symptoms and in his performance status. On 11/09/2019 he began a trial of immunotherapy with pembrolizumab as a single modality. He tolerated the initial infusion of pembrolizumab with no adverse effects, and he then continued treatment at 3-week intervals. He has now completed 6 cycles. He has not been evaluated for response, but he has been doing well clinically. The main concern now is that he has developed an itchy skin eruption on his back, which I suspect is treatment related. Plan: His pembrolizumab will be put on hold, I also will stop the denosumab, as I review these could potentially be the cause of the skin eruption. He will start steroid therapy with prednisone 10 mg twice daily for 3 days, then 10 mg daily. He is to check blood sugars twice daily, and he will be started on a sliding scale as necessary. He returns in 2 weeks. In the meantime, he will need to continue long-term anticoagulation with Lovenox, as he had suffered multiple embolic strokes while on treatment with apixaban. Signed By: Shorty Chadwick M.D. <<Signature on File>>
== END 2020-03-21 23:59 | disposition home or self-care (01) ==
LOC: ONCMED 06:21
PROVIDERS: PCP Nurse Practitioner Family; Visit Provider Internal Medicine Medical Oncology
DX: Z51.12 Encounter for antineoplastic immunotherapy (principal); C34.11 Malignant neoplasm of upper lobe, right bronchus or lung; C79.51 Secondary malignant neoplasm of bone; R51 Headache; E83.110 Hereditary hemochromatosis; R21 Rash and other nonspecific skin eruption; J44.9 Chronic obstructive pulmonary disease, unspecified; G47.33 Obstructive sleep apnea (adult) (pediatric); G47.34 Idiopathic sleep related nonobstructive alveolar hypoventilation; I10 Essential (primary) hypertension; E78.5 Hyperlipidemia, unspecified; E11.51 Type 2 diabetes mellitus with diabetic peripheral angiopathy without gangrene; I25.10 Atherosclerotic heart disease of native coronary artery without angina pectoris; M19.90 Unspecified osteoarthritis, unspecified site; Z79.899 Other long term (current) drug therapy; Z79.01 Long term (current) use of anticoagulants; Z79.52 Long term (current) use of systemic steroids; Z86.73 Personal history of transient ischemic attack (TIA), and cerebral infarction without residual deficits
CPT/HCPCS: 36415; 70553; 80053; 84443; 85025; 96413; 99214; A9579; J7050; J9271

== ENCOUNTER 2020-04-19 05:17 | Outpatient (RCR) | payer MEDICARE, SELFPAY ==
[2020-03-28 12:57] LABS: Basophils # 0.1 10^3/uL (0.0-0.1); Basophils % 0.9 %; Eosinophils # 0.1 10^3/uL (0.0-0.8); Eosinophils % 1.4 %; Hematocrit 53.3 % (42.0-52.0); Hemoglobin 17.8 g/dL (11.7-16.6); Lymphocytes # 0.7 10^3/uL (0.8-4.8); Lymphocytes % 9.3 %; Mean Corpuscular HGB Conc 33.4 g/dL (30.0-36.0); Mean Corpuscular Hemoglobin 30.4 pg (28.0-34.0); Mean Platelet Volume 9.9 fL (7.4-10.4); Monocytes # 0.4 10^3/uL (0.2-0.9); Monocytes % 4.7 %; Neutrophils # 6.57 10^3/uL (1.8-7.7); Neutrophils % 82.9 %; Nucleated Red Blood Cells % 0 %; Platelet Count 200 10^3/cmm (130-400); Red Blood Count 5.86 10^6/uL (4.1-5.3); Red Cell Distribution Width 13.7 % (12.1-15.1); White Blood Count 7.9 10^3/uL (4.0-10.0)
[2020-03-28 13:17] LABS: Alanine Aminotransferase 25 U/L (0-41); Albumin Level 4.6 g/dL (3.5-5.2); Alkaline Phosphatase 41 IU/L (40-130); Anion Gap 16.7 (5-19); Aspartate Amino Transferase 19 U/L (0-40); Blood Urea Nitrogen 21 mg/dL (8-23); Calcium 9.8 mg/dL (8.5-10.5); Carbon Dioxide 24 mmol/L (22-29); Chloride 100 mmol/L (98-107); Globulin 2.6 g/dL (1.3-4.6); Glucose 152 mg/dL (65-115); Osmolality Calculated 288 mOsm/kg (285-295); Potassium 4.7 mmol/L (3.5-5.1); Sodium 136 mmol/L (136-145); Total Bilirubin 0.5 mg/dL (0.15-1.2); Total Protein 7.2 g/dL (6.6-8.7)
[2020-03-28 19:22] LABS: Estmated Average Glucose 157; Hemoglobin A1C 7.1 % (4.0-6.0)
--- NOTE | 2020-04-01 15:54 | ONC FU_ITS ---
Manjinder Pimentel Patient Note Patient: Lynnette Sevilla Unit #: [id number]: 1940 Dictated By: Brian LovellDate of Visit: Mar 28, 2020 Onc MED Follow-Up/Prog Note Chief Complaint: Hemochromatosis/lung cancer. 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 His disease was stage IB (T2a, N0, M0) at initial diagnosis, but with subsequent progression to stage TIGIST (M1b). He also has hereditary hemochromatosis. In February [address] Tyler with persistent cough. His evaluation included chest CT on 03/04/2017. It showed a spiculated density in the medial aspect of the anterior segment of the right upper lobe. It measured 1.8 x 2.4 x 1.8 cm and it was new compared to a previous study from November 2013. There was no associated mediastinal or hilar adenopathy, and there was no evidence of liver or adrenal metastases. He underwent bronchoscopy on 04/06/2017. There were no endobronchial lesions identified. The lesion was found to be avid by PET/CT. There was no evidence of metastatic involvement. He underwent right upper lobectomy with mediastinal lymph node biopsy on 04/29/2017. Pathology showed low-grade (grade 1-2) adenocarcinoma measuring 3.2 x 2.4 cm. There was penetration into visceral pleura and there was evidence of lymphovascular space invasion. The margins of resection were free, and there was no involvement in 1 mediastinal lymph node, in 1 lymph node at the right mainstem bronchus, and in 2 hilar lymph nodes. He has continued on observation/expectant management following the surgery, as there appeared to be no indication for adjuvant chemotherapy. Dr Chadwick had initially seen him in October 2012 in regard to elevated hemoglobin/hematocrit levels and elevated serum iron. His evaluation at that time showed his hemoglobin elevated at 18.1 g with hematocrit 52%. White count and platelet count were normal. The serum iron was in the upper normal range at 145 mcg/dL with transferrin saturation 30.8%. The serum ferritin, though, was elevated at 606 ng/mL. He had additional evaluation including an erythropoietin level which was in the normal range at 12 mIU/mL. A MICHAEL 2 gene mutation study was negative. The HFE gene analysis showed double heterozygosity for the C282Y and the H63D mutations, consistent with hereditary hemochromatosis. He has been managed on a phlebotomy program. Surveillance chest CT on 12/07/2018 showed stable postoperative changes from prior right upper lobectomy. There was long-term stability of left upper lower lobe nodules. There was chronic emphysema. There was no evidence for recurrent or metastatic neoplastic process. He continued observation/expectant management for the lung cancer. He had then presented to Dr. Tyler's office with swelling and redness in the left arm, in the area of the antecubital fossa. Venous Doppler of the left arm on 02/11/2019 showed extensive occlusive thrombus in the left basilic vein. All other veins of the left upper extremity appeared free of thrombus. He was started on anticoagulation with apixaban. He was seen here for follow-up on 02/25/2019. He then had a restaging PET/CT on 03/10/2019. It showed interval development of abnormal activity in a lytic lesion in the left femoral neck, suspicious for metastatic disease. There was interval resolution of the small right upper lobe lung mass. There were no other areas of abnormal uptake on that study. With those findings, he was referred to Dr. Chin. On 03/17/2019 he underwent prophylactic open reduction with interval fixation of the left hip. Pathology on the bone fragments did confirm metastatic carcinoma consistent with the previous diagnosis of pulmonary infiltrating adenocarcinoma. Following recovery from the surgery he was seen by Dr. Boggs for palliative radiation. He completed treatment on 04/18/2019 to a total dose of 3900 cGy. He tolerated the treatment well. In the meantime, Dr Chadwick had also requested a next generation sequencing study. It was performed on the original lung tumor, as the specimen from the left femur was insufficient for analysis. That study showed low PD-L1 expression at 7%. The mutation burden, though, was high. The tumor was negative for EGFR, BRAF, and KRAS mutations, and it also tested negative for the ALK and ROS1 rearrangements. The NTRK fusion also was not detected. Dr Chadwick had seen him for a follow-up visit on 05/02/2019. He had restaging CT scans on 06/01/2019 showed no evidence for recurrent disease in the chest, abdomen, or pelvis. In the setting of a treated, solitary metastasis, he was recommended to continue on observation/expectant management. On 06/28/2019 he was seen in the emergency room with complaints of dizziness. CT of the head with and without contrast showed no acute findings. He was diagnosed with vestibular neuronitis. On 07/04/2019 he was admitted to the hospital after returning to the emergency room with acute mental status changes. His repeat head CT showed a 10 mm focal area of low-attenuation in the left frontal lobe which appeared new from the recent study. Was felt to possibly represent a subacute infarct. Further evaluation with brain MRI showed multifocal patchy areas of acute ischemia involving the YUNG territories bilaterally. The largest area of ischemia measured approximately 1 cm. There was no evidence of mass-effect or midline shift. The clinical presentation appeared most consistent with cancer related hypercoagulability. As it occurred while on a therapeutic dose of apixaban, his anticoagulation was transitioned to therapeutic Lovenox. His echocardiogram showed normal left ventricular cavity size and systolic function with estimated ejection fraction at 60%. There were no significant valvular abnormalities noted. There appeared to be no significant change compared to her previous study from July 2018. His bilateral carotid Doppler studies showed just moderate atheromatous plaque bilaterally. Head MRA showed no evidence of high-grade proximal stenosis or aneurysm. He was discharged to [facility] for rehab. At that point, he was still having significant expressive aphasia, but his confusion had improved significantly. He subsequently was able to return home. Restaging CT scans of the chest, abdomen, and pelvis on 07/25/2019 showed stable 5 mm noncalcified pulmonary nodule in the left upper lobe and a 3 mm noncalcified nodule in the left lower lobe. There was no mediastinal or hilar adenopathy. A few scattered hypodensities throughout the liver are too small to characterize but similar to prior studies. A new 7 mm hypodensity was noted in the lower pole of the right kidney. There was increased density within the lumen of a contracted gallbladder, suspicious for stones and/or chronic cholecystitis. There was no osteoblastic or osteolytic bone disease identified. On 08/03/2019 he was seen in the emergency room with dizziness. He has repeat noncontrast head CT showed atrophy and chronic deep white matter ischemic change with no acute intracranial abnormality identified. He was diagnosed with vertigo and treated with meclizine. Dr Chadwick had seen him for a follow-up visit on 08/08/2019. He had opted to stop the Lovenox injections, and he had restarted anticoagulation with apixaban. He also was taking Plavix. He was still having some difficulty with his speech and he was having some confusion at times and some difficulty with memory. Subsequent to that visit, his had called and reported that his memory and confusion were continuing to worsen. A repeat brain MRI on 08/23/2019 showed multifocal areas of abnormal diffusion abnormalities and flair signal abnormalities. It was noted to predominantly involve the left hippocampal formation with additional more focal diffusion signal abnormalities extending towards the temporal occipital junction posteriorly. That finding appeared to be most consistent with worsening subacute infarcts. Also noted, though, were additional cortical areas of very subtle enhancement throughout the brain which were suspicious for metastatic lesions. The most concerning were in the left frontal vertex. With those findings, Dr Chadwick was able to get his anticoagulation transition back to Lovenox. A repeat PET/CT on 09/01/2019 showed interval development of a small well-circumscribed lytic lesion in the upper femoral neck on the right measuring up to 19 mm with SUV 7.3. A small amount of fracture was noted along the posterior upper border of the left greater trochanter. Abnormal increased activity was noted along the site of the previous suspected metastatic lesion in the left femoral neck with a maximum SUV 6.2, similar to the previous study. There were no other areas of significant abnormal activity identified. Given the PET/CT findings, he was then given palliative radiation to the right hip, completed on 09/28/2019 to a total dose of 3000 cGy. He tolerated the treatment well. In the meantime, a repeat brain MRI on 09/16/2019 again showed numerous bilateral multi lobar acute lacunar infarcts. The previously described areas of enhancement are felt to most likely be related to ischemia and not to metastatic disease. At that time there was felt to be no convincing evidence for metastatic disease. Dr Wade had seen him for a follow-up visit on 03/2020. At that point he was beginning to show some recovery. Dr Chadwick had discussed options for further treatment of the lung cancer. It was quite clear that he was not interested in attempting any chemotherapy. He did agree to continue anticoagulation with Lovenox, and ultimately he also agreed to a trial of immunotherapy. His other medical illnesses include hypertension, hyperlipidemia, type 2 diabetes, coronary artery disease, peripheral vascular disease, and degenerative arthritis. He underwent coronary artery bypass surgery in 1996 and he underwent an arterial bypass procedure to the right leg in 1999. In 2013 he was found to have significant hypoxemia. On evaluation he was found to have COPD and obstructive sleep apnea. 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 Also noted was calcific plaque at the origins of the common iliac arteries at 54% on the left and 60% on the right. He has a history of smoking 1-1 1/2 packs of cigarettes daily, but he quit smoking in 1996. INTERIM HISTORY: On 11/09/2019 he began a trial of immunotherapy with pembrolizumab as a single modality. He tolerated the initial infusion of pembrolizumab with no adverse effects, and he then continued treatment at 3-week intervals. As of 02/22/2020 he completed his 6th cycle. As yet he has not had any assessment of response. Mr. Sevilla is here today for follow-up. He is due for cycle 7 pembrolizumab. He is currently on the every 3-week dosing. He is tolerating it well. His main concern today is that he has been having increasing diarrhea. It is noted that he is taking Metformin 2 tablets twice daily. His last febrile Gail Mab was on February 22, 2020. He presented with a rash after receiving pembrolizumab and Xgeva. His rash has now resolved. Mrs. Sevilla states he is memory medicine from Dr. Hilton and seems to be helping . He denies any shortness of breath orthopnea. He denies any pain. He denies any urinary symptoms. His ECOG is 1. Past Medical History: Coronary artery disease Deep vein thrombosis Degenerative arthritis Hyperlipidemia Hypertension Peripheral vascular disease Type II diabetes His medical illnesses include hypertension, hyperlipidemia, type 2 diabetes, coronary artery disease, peripheral vascular disease, and degenerative arthritis. Past Surgical History: Heart by-pass - quadruple bypass Left femoral neck biopsy in 2019 Open reduction internal fixation Left hip-Dr Chin in 2018 Right upper lobectomy with mediastinal lymph node biopsy-Dr Rivers in 2016 He underwent coronary artery bypass surgery in 1996 and an arterial bypass procedure to the right leg in 1999. His only other surgery was an appendectomy in 1955. Allergies: PENICILLIN AND ALEVE Medications: Acetaminophen Extra Strength 1 (500 mg) Tablet Oral b.i.d. amLODIPine Besylate 1 Tablet (of 2.5 mg) Oral daily Atorvastatin Calcium 1 Tablet (of 20 mg) Oral daily B-12 1 Tablet (of 1000 mcg) Tablet Oral daily Bisacodyl 1 Tablet (of 5 mg) Tablet, enteric coated Oral daily PRN Carvedilol 1 (25 mg) Tablet Oral b.i.d. Cetirizine HCl 1 Tablet (of 10 mg) Oral daily Cholecalciferol 1 Capsule (of 2000 Units) Oral daily CVS Mucus Extended Release 1 Tablet (of 600 mg) Tablet SR 12 HR Oral daily PRN Docusate Sodium 1 Tablet (of 100 mg) Oral daily Donepezil HCl 1 Tablet (of 5 mg) Oral daily Dulcolax Milk of Magnesia 30 mL (of 400 mg/5mL) Suspension Oral daily PRN Enoxaparin Sodium 80 mg (of 300 mg/3mL) Injection b.i.d. Famotidine 1 Tablet (of 20 mg) Tablet Oral b.i.d. Fish Oil 1 (1200 mg) Capsule Oral daily Flonase Suspension Nasal Gabapentin 1 Tablet (of 300 mg) Oral daily Jardiance 0.5 Tablet (of 12.5 ) Oral daily Lovastatin 1 Tablet (of 40 mg) Oral b.i.d. Meclizine HCl 1 Tablet (of 25 mg) Oral daily PRN MetFORMIN HCl 2 Tablet (of 500 mg) Oral b.i.d. Plavix 1 (75 mg) Tablet Oral daily Spiriva Respimat Aerosol, solution Inhalation Tamsulosin HCl 1 (0.4 mg) Capsule Oral daily Family History: His father following stomach surgery at age 66. His mother had diabetes and with kidney thought here at age 74. A half-brother had alcoholic cirrhosis and as a result of an injury. A sister of leukemia at age 6. 3 other sisters and one brother are still living and in good health. Social History: Mr. Sevilla is and he is retired. Mr. Sevilla quit smoking 17 years ago but had smoked 1.5 packs/day for 23 years. He quit drinking 11 years ago. He has indicated exposure to the following products: cigarettes. Mr. Sevilla reports the following support systems: lives with spouse, significant other, family, or friends, lives in own house, supportive family/friends willing to assist with needs, and adequate transportation available for expected visits. His diet consists of regular meals. He indicates his activity level as: daily activities. He is retired. He had previously smoked up to a pack and a half of cigarettes daily. He quit in 1996. He has had social alcohol use in the past. He has had no alcohol use for at least 10 years or more. Review Of Symptoms: Constitutional Denies fevers, chills, night sweats, excessive fatigue or weight loss. Allergic/Immunologic No reactions. Eyes Denies significant visual changes. No diplopia. No amaurosis. ENMT Denies changes in hearing, sore throat, mouth sores, difficulty or changes in swallowing ability, and/or sinus drainage. Endocrine No diabetes, thyroid disease or hormone replacement. Denies hot flashes or night sweats. Hematologic/Lymphatic Denies easy bruising or bleeding. The patient denies any tender or palpable lymph nodes. Respiratory Denies dyspnea on exertion, chest pain, or hemoptysis. Denies orthopnea. Cardiovascular Denies anginal chest pain, palpitations or orthopnea. Gastrointestinal Denies nausea, vomiting, GI bleeding, or constipation. Denies change in bowel habits and/or stool color, no heartburn or early satiety. Genitourinary (M) Denies hematuria, dysuria, increased frequency, urgency, hesitancy or incontinence. Musculoskeletal Denies joint pain, swelling or redness. No decreased range of motion. Integumentary Denies chronic rashes, inflammation, ulcerations or skin changes. Acute rash from last visit is improved but still there. It is no worse and maybe a little better . Neurologic Denies headache, blurred vision, and no areas of focal weakness or numbness. Normal gait. No sensory problems. Psychiatric Denies insomnia, depression, giovanni or mood swings. Vital Signs: Performed on Mar 28, 2020 13:59 Height - 65.00 in Weight - 174.2 lbs (LOW) BSA - 1.87 sq.m BMI - 28.99 Temperature - 98.3 F (LOW) Pulse - 64 /min Respiration - 20 /min BP - 126/75 mm(hg) O2 Sat - 93 % (LOW) Pain - 0,1 - No physically strenuous activity, but ambulatory and able to carry out light or sedentary work (e.g. office work, light house work). (ECOG) Physical Examination: Constitutional Alert, oriented, no acute distress. Skin pink, warm and dry. Head Normocephalic; atraumatic. Eyes Conjunctivae and sclerae are clear and without icterus. Pupils are reactive and equal. Neck Supple without masses or thyromegaly. No jugular venous distension. Hematologic/Lymphatic No petechiae or purpura. No tender or palpable lymph nodes in the cervical or supraclavicular areas. Respiratory Lungs are clear to auscultation without rhonchi or wheezing. Cardiovascular Regular rate and rhythm of heart without murmurs,clicks, gallops or rubs. Back/Spine Non-tender to palpation. Extremities No visible deformities, no cyanosis, clubbing or edema. Musculoskeletal No tenderness or swelling, normal range of motion without obvious weakness. Integumentary Scattered healing maculopapular rash on his back and waist line. No pustules or blisters. Rash is healing overall. Healing scratch tabor noted. Neurologic No sensory or motor deficits, normal cerebellar function, normal gait. Psychiatric Alert and oriented times three. Coherent speech. Verbalizes understanding of our discussions today. Laboratory:Test performed on Mar 28, 2020 12:20 Sodium 136 mmol/L Potassium 4.7 mmol/L Chloride 100 mmol/L Est Avg Glucose (eAG) 157 mg/dL CO2 24 mmol/L Anion Gap 16.7 BUN 21 mg/dL Creatinine 0.9 mg/dL Cr Clearance (Est) 76.82 mL/min Glucose 152 mg/dL Osmolality - Calculated 288 mOsm/kg Calcium 9.8 mg/dL Protein, Total 7.2 g/dL Albumin 4.6 g/dL Globulin 2.6 g/dL Bilirubin, Total 0.5 mg/dL ALT (SGPT) 25 U/L AST (SGOT) 19 U/L Alkaline Phosphatase 41 IU/L Hemoglobin A1C % 7.1 % WBC 7.9 10 3/uL RBC 5.86 10 6/uL HGB 17.8 g/dL HCT 53.3 % MCV 91.0 fL MCH 30.4 pg MCHC 33.4 g/dL RDW 13.7 % Platelet Count 200 10 3/cmm MPV 9.9 fL Neutrophils 6.57 10 3/uL Lymphocytes 0.7 10 3/uL Monocytes 0.4 10 3/uL Eosinophils 0.1 10 3/uL Basophils 0.1 10 3/uL Neutrophil % 82.9 % Lymphocyte % 9.3 % Monocyte % 4.7 % Eosinophil % 1.4 % Basophils % 0.9 % NRBC % 0 % Test performed on Mar 14, 2020 12:20 TSH 2.28 uIU/mL Impression: 1. Patient with nonsmall cell cancer (low-grade adenocarcinoma) involving the upper lobe of the right lung, stage IB (T2a, N0, M0). 2. He underwent right upper lobectomy with mediastinal lymph node biopsy on 04/29/2017. 3. He has hereditary hemochromatosis. He was found to be doubly heterozygous for the C282Y and the H63D mutations. He has had a very good response to phlebotomy, with his subsequent ferritin levels maintained at less than 50 ng/mL compared to a pretreatment level of greater than 600. 4. He has underlying lung disease including COPD and obstructive sleep apnea, and he has associated chronic hypoxia. 5. 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 His other medical illnesses include: 6. Hypertension. 7. Hyperlipidemia. 8. Type II diabetes. 9. Coronary artery disease. 10. Peripheral arterial disease. 11. Degenerative arthritis. In January 2019 he had presented with a deep vein thrombosis of the left arm. It appeared to have been an unprovoked thrombosis. He started anticoagulation with apixaban. His restaging PET/CT on 03/10/2019 showed evidence of a single site of metastatic disease in the form of a lytic bone lesion in the left femoral neck. He underwent prophylactic ORIF of the left hip on 03/17/2019. Pathology confirmed metastatic adenocarcinoma. Following recovery from the surgery, he was seen by Dr. Boggs for palliative radiation. He completed treatment on 04/18/2019 to a total dose of 3900 cGy. During that time, he had additional pathologic evaluation with the next generation sequencing study on his primary lung tumor. It showed low PD-L1 expression at 7%. The mutation burden was high. There were no actionable mutations identified. His restaging CT scans on 06/01/2019 showed no evidence for recurrent disease in the chest, abdomen, or pelvis. In the setting of a treated, solitary metastasis, he was recommended to continue on observation/expectant management. He continued anticoagulation with apixaban. On 07/04/2019 he was admitted to the hospital with multiple cerebral infarcts. I had suspected that it was another manifestation of cancer related hypercoagulability. As it occurred while on a therapeutic dosage of apixaban, his anticoagulation had been transitioned to Lovenox. He was initially transferred to [facility] for further rehabilitation, but he subsequently was able to return home. His restaging CT scans of the chest, abdomen, and pelvis on 07/25/2019 showed no obvious progression of the lung cancer. He had then opted to stop the Lovenox injections and restart anticoagulation with apixaban. He also was taking Plavix. He had subsequently developed further decline in cognitive function. His repeat brain MRI on 08/23/2019 showed areas of enhancement which were suspicious for worsening subacute infarcts. There were additional small enhancing lesions which were suspicious for metastases. With those findings his anticoagulation was transitioned back to Lovenox. A repeat PET/CT on 09/01/2019 showed a new small metastatic lesion in the right proximal femur. There was residual activity at the site of the metastatic lesion in the left femur. There were no other areas of abnormal activity noted on that study. He was then given palliative radiation to the right hip, completed on 09/28/2019 to a total dose of 3000 cGy. His repeat brain MRI on 09/16/2019 continued to show evidence of bilateral multilobar acute lacunar infarcts, but there was no convincing evidence for metastatic disease. He then continued anticoagulation with Lovenox, and during followup there was gradual improvement in his neurologic symptoms and in his performance status. On 11/09/2019 he began a trial of immunotherapy with pembrolizumab as a single modality. He tolerated the initial infusion of pembrolizumab with no adverse effects, and he then continued treatment at 3-week intervals. He has now completed 6 cycles. He has not been evaluated for response, but he has been doing well clinically. He had developed an itchy skin eruption on his back, which was suspected to be treatment related. His pembrolizumab was placed on hold on February 22, 2020. He presents today with his rash resolved. Plan: 1. Proceed with cycle pembolizumab 3 week dose today as his last treatment was on 02/22/2020. 2. Mr & Mrs Sevilla were instructed to call us if the rash returns. He will need an increase on his Prednisone. I have left him on 10 mg daily for now. 3. 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 4. Decrease Metformin to twice daily due to diarrhea. We will monitor his blood sugars. 5. [facility]. 6. Labs from today were reviewed in detail discussed with Mr. Mrs. Sevilla and a copy was given to them. WBC 7.9, hemoglobin 17.8, platelets 200,000 ANC 6500. Potassium 4.7 creatinine 0.9 LFTs are normal. 7. We will plan to see him back in 3 weeks with CBC CMP and TSH. 8. Mr. Mrs. Sevilla were instructed to contact us in interim should questions or problems arise. Signed By: Brian Lovell-, AOCNP Shorty Chadwick MD <<Signature on File>>
[2020-04-19 08:19] LABS: Basophils % 0.6 %; Eosinophils # 0.1 10^3/uL (0.0-0.8); Eosinophils % 0.7 %; Hematocrit 53.7 % (42.0-52.0); Hemoglobin 17.8 g/dL (11.7-16.6); Lymphocytes # 0.9 10^3/uL (0.8-4.8); Lymphocytes % 12.5 %; Mean Corpuscular HGB Conc 33.1 g/dL (30.0-36.0); Mean Corpuscular Hemoglobin 30.9 pg (28.0-34.0); Mean Corpuscular Volume 93.2 fL (80-94); Mean Platelet Volume 9.4 fL (7.4-10.4); Monocytes # 0.4 10^3/uL (0.2-0.9); Monocytes % 5.5 %; Neutrophils # 5.59 10^3/uL (1.8-7.7); Neutrophils % 80.3 %; Nucleated Red Blood Cells % 0 %; Platelet Count 198 10^3/cmm (130-400); Red Blood Count 5.76 10^6/uL (4.1-5.3); Red Cell Distribution Width 13.8 % (12.1-15.1)
[2020-04-19 08:52] LABS: Alanine Aminotransferase 28 U/L (0-41); Albumin Level 4.1 g/dL (3.5-5.2); Alkaline Phosphatase 42 IU/L (40-130); Aspartate Amino Transferase 13 U/L (0-40); Blood Urea Nitrogen 25 mg/dL (8-23); Calcium 9.3 mg/dL (8.5-10.5); Carbon Dioxide 21 mmol/L (22-29); Chloride 98 mmol/L (98-107); Globulin 2.6 g/dL (1.3-4.6); Glucose 219 mg/dL (65-115); Osmolality Calculated 287 mOsm/kg (285-295); Sodium 133 mmol/L (136-145); Thyroid Stimulating Hormone 2.75 uIU/mL (0.27-4.20); Total Bilirubin 0.6 mg/dL (0.15-1.2); Total Protein 6.7 g/dL (6.6-8.7)
[2020-04-19 08:54] LABS: Anion Gap 18.2 (5-19); Potassium 4.2 mmol/L (3.5-5.1)
--- NOTE | 2020-04-19 18:20 | ONC FU_ITS ---
Dr. Chadwick Patient Follow-Up Note Patient: Lynnette Sevilla Unit #: [id number]: 1940 Dicatated By: Shorty Chadwick M.D.Date of Visit:Apr 19, 2020 Onc Med Follow-up/Prog Note Chief Complaint: Hemochromatosis/lung cancer. 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 His disease was stage IB (T2a, N0, M0) at initial diagnosis, but with subsequent progression to stage TIGIST (M1b). He also has hereditary hemochromatosis. In February [address] Tyler with persistent cough. His evaluation included chest CT on 03/04/2017. It showed a spiculated density in the medial aspect of the anterior segment of the right upper lobe. It measured 1.8 x 2.4 x 1.8 cm and it was new compared to a previous study from November 2013. There was no associated mediastinal or hilar adenopathy, and there was no evidence of liver or adrenal metastases. He underwent bronchoscopy on 04/06/2017. There were no endobronchial lesions identified. The lesion was found to be avid by PET/CT. There was no evidence of metastatic involvement. He underwent right upper lobectomy with mediastinal lymph node biopsy on 04/29/2017. Pathology showed low-grade (grade 1-2) adenocarcinoma measuring 3.2 x 2.4 cm. There was penetration into visceral pleura and there was evidence of lymphovascular space invasion. The margins of resection were free, and there was no involvement in 1 mediastinal lymph node, in 1 lymph node at the right mainstem bronchus, and in 2 hilar lymph nodes. He has continued on observation/expectant management following the surgery, as there appeared to be no indication for adjuvant chemotherapy. I had initially seen him in October 2012 in regard to elevated hemoglobin/hematocrit levels and elevated serum iron. His evaluation at that time showed his hemoglobin elevated at 18.1 g with hematocrit 52%. White count and platelet count were normal. The serum iron was in the upper normal range at 145 mcg/dL with transferrin saturation 30.8%. The serum ferritin, though, was elevated at 606 ng/mL. He had additional evaluation including an erythropoietin level which was in the normal range at 12 mIU/mL. A MICHAEL 2 gene mutation study was negative. The HFE gene analysis showed double heterozygosity for the C282Y and the H63D mutations, consistent with hereditary hemochromatosis. He has been managed on a phlebotomy program. Surveillance chest CT on 12/07/2018 showed stable postoperative changes from prior right upper lobectomy. There was long-term stability of left upper lower lobe nodules. There was chronic emphysema. There was no evidence for recurrent or metastatic neoplastic process. He continued observation/expectant management for the lung cancer. He had then presented to Dr. Tyler's office with swelling and redness in the left arm, in the area of the antecubital fossa. Venous Doppler of the left arm on 02/11/2019 showed extensive occlusive thrombus in the left basilic vein. All other veins of the left upper extremity appeared free of thrombus. He was started on anticoagulation with apixaban. He was seen here for follow-up on 02/25/2019. He then had a restaging PET/CT on 03/10/2019. It showed interval development of abnormal activity in a lytic lesion in the left femoral neck, suspicious for metastatic disease. There was interval resolution of the small right upper lobe lung mass. There were no other areas of abnormal uptake on that study. With those findings, he was referred to Dr. Chin. On 03/17/2019 he underwent prophylactic open reduction with interval fixation of the left hip. Pathology on the bone fragments did confirm metastatic carcinoma consistent with the previous diagnosis of pulmonary infiltrating adenocarcinoma. Following recovery from the surgery he was seen by Dr. Boggs for palliative radiation. He completed treatment on 04/18/2019 to a total dose of 3900 cGy. He tolerated the treatment well. In the meantime, I had also requested a next generation sequencing study. It was performed on the original lung tumor, as the specimen from the left femur was insufficient for analysis. That study showed low PD-L1 expression at 7%. The mutation burden, though, was high. The tumor was negative for EGFR, BRAF, and KRAS mutations, and it also tested negative for the ALK and ROS1 rearrangements. The NTRK fusion also was not detected. I had seen him for a follow-up visit on 05/02/2019. He had restaging CT scans on 06/01/2019 showed no evidence for recurrent disease in the chest, abdomen, or pelvis. In the setting of a treated, solitary metastasis, he was recommended to continue on observation/expectant management. On 06/28/2019 he was seen in the emergency room with complaints of dizziness. CT of the head with and without contrast showed no acute findings. He was diagnosed with vestibular neuronitis. On 07/04/2019 he was admitted to the hospital after returning to the emergency room with acute mental status changes. His repeat head CT showed a 10 mm focal area of low-attenuation in the left frontal lobe which appeared new from the recent study. Was felt to possibly represent a subacute infarct. Further evaluation with brain MRI showed multifocal patchy areas of acute ischemia involving the YUNG territories bilaterally. The largest area of ischemia measured approximately 1 cm. There was no evidence of mass-effect or midline shift. The clinical presentation appeared most consistent with cancer related hypercoagulability. As it occurred while on a therapeutic dose of apixaban, his anticoagulation was transitioned to therapeutic Lovenox. His echocardiogram showed normal left ventricular cavity size and systolic function with estimated ejection fraction at 60%. There were no significant valvular abnormalities noted. There appeared to be no significant change compared to her previous study from July 2018. His bilateral carotid Doppler studies showed just moderate atheromatous plaque bilaterally. Head MRA showed no evidence of high-grade proximal stenosis or aneurysm. He was discharged to [facility] for rehab. At that point, he was still having significant expressive aphasia, but his confusion had improved significantly. He subsequently was able to return home. Restaging CT scans of the chest, abdomen, and pelvis on 07/25/2019 showed stable 5 mm noncalcified pulmonary nodule in the left upper lobe and a 3 mm noncalcified nodule in the left lower lobe. There was no mediastinal or hilar adenopathy. A few scattered hypodensities throughout the liver are too small to characterize but similar to prior studies. A new 7 mm hypodensity was noted in the lower pole of the right kidney. There was increased density within the lumen of a contracted gallbladder, suspicious for stones and/or chronic cholecystitis. There was no osteoblastic or osteolytic bone disease identified. On 08/03/2019 he was seen in the emergency room with dizziness. He has repeat noncontrast head CT showed atrophy and chronic deep white matter ischemic change with no acute intracranial abnormality identified. He was diagnosed with vertigo and treated with meclizine. I had seen him for a follow-up visit on 08/08/2019. He had opted to stop the Lovenox injections, and he had restarted anticoagulation with apixaban. He also was taking Plavix. He was still having some difficulty with his speech and he was having some confusion at times and some difficulty with memory. Subsequent to that visit, his had called and reported that his memory and confusion were continuing to worsen. A repeat brain MRI on 08/23/2019 showed multifocal areas of abnormal diffusion abnormalities and flair signal abnormalities. It was noted to predominantly involve the left hippocampal formation with additional more focal diffusion signal abnormalities extending towards the temporal occipital junction posteriorly. That finding appeared to be most consistent with worsening subacute infarcts. Also noted, though, were additional cortical areas of very subtle enhancement throughout the brain which were suspicious for metastatic lesions. The most concerning were in the left frontal vertex. With those findings, I was able to get his anticoagulation transition back to Lovenox. A repeat PET/CT on 09/01/2019 showed interval development of a small well-circumscribed lytic lesion in the upper femoral neck on the right measuring up to 19 mm with SUV 7.3. A small amount of fracture was noted along the posterior upper border of the left greater trochanter. Abnormal increased activity was noted along the site of the previous suspected metastatic lesion in the left femoral neck with a maximum SUV 6.2, similar to the previous study. There were no other areas of significant abnormal activity identified. Given the PET/CT findings, he was then given palliative radiation to the right hip, completed on 09/28/2019 to a total dose of 3000 cGy. He tolerated the treatment well. In the meantime, a repeat brain MRI on 09/16/2019 again showed numerous bilateral multi lobar acute lacunar infarcts. The previously described areas of enhancement are felt to most likely be related to ischemia and not to metastatic disease. At that time there was felt to be no convincing evidence for metastatic disease. I had seen him for a follow-up visit on 03/2020. At that point he was beginning to show some recovery. I had discussed options for further treatment of the lung cancer. It was quite clear that he was not interested in attempting any chemotherapy. He did agree to continue anticoagulation with Lovenox, and ultimately he also agreed to a trial of immunotherapy. His other medical illnesses include hypertension, hyperlipidemia, type 2 diabetes, coronary artery disease, peripheral vascular disease, and degenerative arthritis. He underwent coronary artery bypass surgery in 1996 and he underwent an arterial bypass procedure to the right leg in 1999. In 2013 he was found to have significant hypoxemia. On evaluation he was found to have COPD and obstructive sleep apnea. 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 Also noted was calcific plaque at the origins of the common iliac arteries at 54% on the left and 60% on the right. He has a history of smoking 1-1 1/2 packs of cigarettes daily, but he quit smoking in 1996. INTERIM HISTORY: On 11/09/2019 he began a trial of immunotherapy with pembrolizumab as a single modality. He tolerated the initial infusion of pembrolizumab with no adverse effects, and he then continued treatment at 3-week intervals. As of 02/22/2020 he completed his 6th cycle. At his follow-up visit on 03/14/2020 he had developed a significant skin eruption on his trunk, mainly the back. With that finding, had stopped both the pembrolizumab and the denosumab, I also had him start prednisone, initially at 20 mg daily. The prednisone was later reduced to 10 mg daily, as the skin eruption was resolving. He was able to restart pembrolizumab on 03/28/2020. I opted to keep the denosumab on hold, as I felt it was the more likely cause for the eruption. He is seen for a follow-up visit. His main complaint is that he is growing tired of checking his blood sugars twice a day, as he still is on the low-dose of prednisone. He says his energy has been okay except for the rainy weather. He is doing light work. His appetite is good. He has no fever or night sweats. He does have some shortness of breath, but he says his breathing is okay. He has cough attributable to clear liquid sinus drainage. He has no GI or complaints. He does not have a lot of pain now. It is adequately managed with medication. He has some headaches, but not bad. He has no focal neurologic symptoms. He has had no recurrence of the skin eruption. Medications: Acetaminophen Extra Strength 1 (500 mg) Tablet Oral b.i.d., amLODIPine Besylate 0.5 Tablet (of 5 mg) Oral at bedtime, B-12 1 Tablet (of 1000 mcg) Tablet Oral daily, Bisacodyl 1 Tablet (of 5 mg) Tablet, enteric coated Oral daily PRN, Carvedilol 1 (25 mg) Tablet Oral b.i.d., Cholecalciferol 1 Capsule (of 2000 Units) Oral daily, [employer] Mucus Extended Release 1 Tablet (of 600 mg) Tablet SR 12 HR Oral daily PRN, Donepezil HCl 1 Tablet (of 5 mg) Oral daily, Dulcolax Milk of Magnesia 30 mL (of 400 mg/5mL) Suspension Oral daily PRN, Enoxaparin Sodium 80 mg (of 300 mg/3mL) Injection b.i.d., Famotidine 1 Tablet (of 20 mg) Oral b.i.d. PRN, Fish Oil 1 (1200 mg) Capsule Oral daily, Flonase Suspension Nasal, Gabapentin 1 Tablet (of 300 mg) Oral daily, Hydrocodone-Acetaminophen 1 (5-325 mg) Tablet Oral four times a day PRN, Jardiance 0.5 Tablet (of 12.5 ) Oral daily, Lovastatin 1 Tablet (of 40 mg) Oral b.i.d., Meclizine HCl 1 Tablet (of 25 mg) Oral daily PRN, MetFORMIN HCl 1 Tablet (of 500 mg) Oral b.i.d., Plavix 1 (75 mg) Tablet Oral daily, predniSONE 1 Tablet (of 10 mg) Oral daily, Spiriva Respimat Aerosol, solution Inhalation, Tamsulosin HCl 1 (0.4 mg) Capsule Oral daily Allergies: PENICILLIN AND ALEVE Review of Systems: Constitutional - He says his energy has been okay other than the rainy weather. He is able to do light work. Appetite is good and weight is stable. No fever, night sweats, or hot flashes. ECOG score is 1, ENMT - He has problems with wax buildup in his ears. He has sinus drainage. No mouth sores. No sore throat or difficulty swallowing, Hematologic/Lymphatic - No abnormal bruising or bleeding, Respiratory - He has shortness of breath, but he says his breathing is okay. He has some cough, attributable to clear liquid sinus drainage. No pleuritic pain or hemoptysis, Cardiovascular - No angina pain. No palpitations, Gastrointestinal - No nausea or vomiting. No heartburn or acid reflux. No diarrhea or constipation. No blood in the stool or black stools, Genitourinary (M) - No dysuria or hematuria. No urinary frequency. No urgency or incontinence, Musculoskeletal - His pain now is adequately managed with medication, Integumentary - His skin eruption has resolved, Neurologic - He has some headaches, but not bad. No dizziness. No numbness or tingling. No other focal neurologic symptoms, Psychiatric - No anxiety or depression. No insomnia. Vital Signs: Performed on Apr 19, 2020 08:45 Height - 65.00 in Weight - 172.8 lbs (LOW) BSA - 1.86 sq.m BMI - 28.76 Temperature - 98.0 F (LOW) Pulse - 63 /min Respiration - 20 /min BP - 107/61 mm(hg) O2 Sat - 91 % (LOW) Pain - 0 Physical Examination: Constitutional - He looks pretty good generally, Eyes - Sclerae nonicteric. Conjunctivae clear, ENMT - No lesions noted in the oral cavity, Hematologic/Lymphatic - No cervical, clavicular, or axillary adenopathy, Respiratory - Lungs sound clear with some decrease in air movement bilaterally, Cardiovascular - Heart rhythm is regular. There is no murmur, gallop, or rub noted, Abdomen - Soft. Liver and spleen are not enlarged. There is no abdominal mass or ascites noted and there is no inguinal adenopathy, Extremities - No edema, Integumentary - There is no residual skin eruption, Neurologic - No focal neurologic deficits noted. Lab/Imaging: Test performed on Apr 19, 2020 08:06 Sodium 133 mmol/L TSH 2.75 uIU/mL Potassium 4.2 mmol/L Chloride 98 mmol/L CO2 21 mmol/L Anion Gap 18.2 BUN 25 mg/dL Creatinine 1.1 mg/dL Cr Clearance (Est) 62.3500 mL/min Glucose 219 mg/dL Osmolality - Calculated 287 mOsm/kg Calcium 9.3 mg/dL Protein, Total 6.7 g/dL Albumin 4.1 g/dL Globulin 2.6 g/dL Bilirubin, Total 0.6 mg/dL ALT (SGPT) 28 U/L AST (SGOT) 13 U/L Alkaline Phosphatase 42 IU/L WBC 7.0 10 3/uL RBC 5.76 10 6/uL HGB 17.8 g/dL HCT 53.7 % MCV 93.2 fL MCH 30.9 pg MCHC 33.1 g/dL RDW 13.8 % Platelet Count 198 10 3/cmm MPV 9.4 fL Neutrophils 5.59 10 3/uL Lymphocytes 0.9 10 3/uL Monocytes 0.4 10 3/uL Eosinophils 0.1 10 3/uL Basophils 0.0 10 3/uL Neutrophil % 80.3 % Lymphocyte % 12.5 % Monocyte % 5.5 % Eosinophil % 0.7 % Basophils % 0.6 % NRBC % 0 % Impression: 1. Patient with nonsmall cell cancer (low-grade adenocarcinoma) involving the upper lobe of the right lung, stage IB (T2a, N0, M0). 2. He underwent right upper lobectomy with mediastinal lymph node biopsy on 04/29/2017. 3. He has hereditary hemochromatosis. He was found to be doubly heterozygous for the C282Y and the H63D mutations. He has had a very good response to phlebotomy, with his subsequent ferritin levels maintained at less than 50 ng/mL compared to a pretreatment level of greater than 600. 4. He has underlying lung disease including COPD and obstructive sleep apnea, and he has associated chronic hypoxia. 5. 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 His other medical illnesses include: 6. Hypertension. 7. Hyperlipidemia. 8. Type II diabetes. 9. Coronary artery disease. 10. Peripheral arterial disease. 11. Degenerative arthritis. In January 2019 he had presented with a deep vein thrombosis of the left arm. It appeared to have been an unprovoked thrombosis. He started anticoagulation with apixaban. His restaging PET/CT on 03/10/2019 showed evidence of a single site of metastatic disease in the form of a lytic bone lesion in the left femoral neck. He underwent prophylactic ORIF of the left hip on 03/17/2019. Pathology confirmed metastatic adenocarcinoma. Following recovery from the surgery, he was seen by Dr. Boggs for palliative radiation. He completed treatment on 04/18/2019 to a total dose of 3900 cGy. During that time, he had additional pathologic evaluation with the next generation sequencing study on his primary lung tumor. It showed low PD-L1 expression at 7%. The mutation burden was high. There were no actionable mutations identified. His restaging CT scans on 06/01/2019 showed no evidence for recurrent disease in the chest, abdomen, or pelvis. In the setting of a treated, solitary metastasis, he was recommended to continue on observation/expectant management. He continued anticoagulation with apixaban. On 07/04/2019 he was admitted to the hospital with multiple cerebral infarcts. I had suspected that it was another manifestation of cancer related hypercoagulability. As it occurred while on a therapeutic dosage of apixaban, his anticoagulation had been transitioned to Lovenox. He was initially transferred to [facility] senior care for further rehabilitation, but he subsequently was able to return home. His restaging CT scans of the chest, abdomen, and pelvis on 07/25/2019 showed no obvious progression of the lung cancer. He had then opted to stop the Lovenox injections and restart anticoagulation with apixaban. He also was taking Plavix. He had subsequently developed further decline in cognitive function. His repeat brain MRI on 08/23/2019 showed areas of enhancement which were suspicious for worsening subacute infarcts. There were additional small enhancing lesions which were suspicious for metastases. With those findings his anticoagulation was transitioned back to Lovenox. A repeat PET/CT on 09/01/2019 showed a new small metastatic lesion in the right proximal femur. There was residual activity at the site of the metastatic lesion in the left femur. There were no other areas of abnormal activity noted on that study. He was then given palliative radiation to the right hip, completed on 09/28/2019 to a total dose of 3000 cGy. His repeat brain MRI on 09/16/2019 continued to show evidence of bilateral multilobar acute lacunar infarcts, but there was no convincing evidence for metastatic disease. He then continued anticoagulation with Lovenox, and during followup there was gradual improvement in his neurologic symptoms and in his performance status. On 11/09/2019 he began a trial of immunotherapy with pembrolizumab as a single modality. He tolerated the initial infusion of pembrolizumab with no adverse effects, and he then continued treatment at 3-week intervals. During that time he also began denosumab injections for the metastatic bone involvement. As of his follow-up visit on 03/14/2020 both the pembrolizumab and the denosumab were put on hold to development of skin eruption. The eruption gradually resolved on steroid therapy, and he was able to resume pembrolizumab on 03/28/2020. Thus far he has tolerated it without recurrence of the skin eruption or other toxicity. He has still on prednisone at 10 mg daily. As yet he has not had any follow-up imaging for the lung cancer, in part because his disease was only evident by PET/CT scanning. Plan: He will continue with cycle 8 of pembrolizumab 200 mg by IV infusion. The denosumab will remain on hold. He will decrease prednisone to 5 mg daily for 7 days and then stop. I will have him reduce the frequency of his blood sugar checks to just once a day. He will return for treatment in 3 weeks and for a follow-up visit in 6 weeks. I will plan a restaging PET/CT prior to that visit, subject to verification of insurance coverage. Signed By: Shorty Chadwick M.D. <<Signature on File>>
== END 2020-04-21 23:59 | disposition home or self-care (01) ==
LOC: ONCMED 05:17
PROVIDERS: Nurse Practitioner; PCP Nurse Practitioner Family; Visit Provider Internal Medicine Medical Oncology
DX: Z51.12 Encounter for antineoplastic immunotherapy (principal); C34.11 Malignant neoplasm of upper lobe, right bronchus or lung; C79.51 Secondary malignant neoplasm of bone; E83.110 Hereditary hemochromatosis; J43.9 Emphysema, unspecified; Z86.718 Personal history of other venous thrombosis and embolism; Z92.3 Personal history of irradiation; I10 Essential (primary) hypertension; E78.5 Hyperlipidemia, unspecified; E11.51 Type 2 diabetes mellitus with diabetic peripheral angiopathy without gangrene; I25.10 Atherosclerotic heart disease of native coronary artery without angina pectoris; G47.33 Obstructive sleep apnea (adult) (pediatric); D75.1 Secondary polycythemia; Z79.84 Long term (current) use of oral hypoglycemic drugs; Z79.02 Long term (current) use of antithrombotics/antiplatelets; Z79.891 Long term (current) use of opiate analgesic; Z95.1 Presence of aortocoronary bypass graft; Z87.891 Personal history of nicotine dependence; Z86.73 Personal history of transient ischemic attack (TIA), and cerebral infarction without residual deficits; Z90.2 Acquired absence of lung [part of]
CPT/HCPCS: 80053; 83036; 84443; 85025; 96413; 99214; J7050; J9271

== ENCOUNTER 2020-05-10 06:04 | Outpatient (RCR) | payer MEDICARE, SELFPAY | END 2020-05-21 23:59 | disposition home or self-care (01) | LOC: ONCMED 06:04 | PROVIDERS: PCP Nurse Practitioner Family; Visit Provider Nurse Practitioner | DX: Z51.12 Encounter for antineoplastic immunotherapy (principal); C34.11 Malignant neoplasm of upper lobe, right bronchus or lung; C79.51 Secondary malignant neoplasm of bone; E83.110 Hereditary hemochromatosis | CPT/HCPCS: 96413; J7050; J9271 ==

== ENCOUNTER 2020-05-31 06:08 | Outpatient (RCR) | payer MEDICARE, SELFPAY ==
[2020-05-31 10:16] LABS: Basophils # 0.1 10^3/uL (0.0-0.1); Basophils % 1.1 %; Eosinophils # 0.2 10^3/uL (0.0-0.8); Eosinophils % 4.4 %; Hematocrit 50.7 % (42.0-52.0); Hemoglobin 16.9 g/dL (11.7-16.6); Lymphocytes # 1.1 10^3/uL (0.8-4.8); Lymphocytes % 21.5 %; Mean Corpuscular HGB Conc 33.3 g/dL (30.0-36.0); Mean Corpuscular Volume 92.9 fL (80-94); Mean Platelet Volume 9.8 fL (7.4-10.4); Monocytes # 0.5 10^3/uL (0.2-0.9); Monocytes % 9.9 %; Neutrophils # 3.31 10^3/uL (1.8-7.7); Neutrophils % 62.9 %; Nucleated Red Blood Cells % 0 %; Platelet Count 173 10^3/cmm (130-400); Red Blood Count 5.46 10^6/uL (4.1-5.3); Red Cell Distribution Width 13.9 % (12.1-15.1); White Blood Count 5.3 10^3/uL (4.0-10.0)
[2020-05-31 10:35] LABS: Alanine Aminotransferase 16 U/L (0-41); Alkaline Phosphatase 38 IU/L (40-130); Anion Gap 14.7 (5-19); Aspartate Amino Transferase 14 U/L (0-40); Blood Urea Nitrogen 16 mg/dL (8-23); Calcium 9.7 mg/dL (8.5-10.5); Carbon Dioxide 25 mmol/L (22-29); Chloride 102 mmol/L (98-107); Globulin 2.5 g/dL (1.3-4.6); Glucose 172 mg/dL (65-115); Osmolality Calculated 289 mOsm/kg (285-295); Potassium 4.7 mmol/L (3.5-5.1); Sodium 137 mmol/L (136-145); Thyroid Stimulating Hormone 2.35 uIU/mL (0.27-4.20); Total Bilirubin 0.7 mg/dL (0.15-1.2); Total Protein 6.5 g/dL (6.6-8.7)
--- NOTE | 2020-06-01 08:14 | ONC FU_ITS ---
Dr. Chadwick Patient Follow-Up Note Patient: Lynnette Sevilla Unit #: [id number]: [id number] Dicatated By: Shorty Chadwick M.D.Date of Visit:May 31, 2020 Onc Med Follow-up/Prog Note Chief Complaint: Hemochromatosis/lung cancer. 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 His disease was stage IB (T2a, N0, M0) at initial diagnosis, but with subsequent progression to stage TIGIST (M1b). He also has hereditary hemochromatosis. In February [address] Tyler with persistent cough. His evaluation included chest CT on 03/04/2017. It showed a spiculated density in the medial aspect of the anterior segment of the right upper lobe. It measured 1.8 x 2.4 x 1.8 cm and it was new compared to a previous study from November 2013. There was no associated mediastinal or hilar adenopathy, and there was no evidence of liver or adrenal metastases. He underwent bronchoscopy on 04/06/2017. There were no endobronchial lesions identified. The lesion was found to be avid by PET/CT. There was no evidence of metastatic involvement. He underwent right upper lobectomy with mediastinal lymph node biopsy on 04/29/2017. Pathology showed low-grade (grade 1-2) adenocarcinoma measuring 3.2 x 2.4 cm. There was penetration into visceral pleura and there was evidence of lymphovascular space invasion. The margins of resection were free, and there was no involvement in 1 mediastinal lymph node, in 1 lymph node at the right mainstem bronchus, and in 2 hilar lymph nodes. He has continued on observation/expectant management following the surgery, as there appeared to be no indication for adjuvant chemotherapy. I had initially seen him in October 2012 in regard to elevated hemoglobin/hematocrit levels and elevated serum iron. His evaluation at that time showed his hemoglobin elevated at 18.1 g with hematocrit 52%. White count and platelet count were normal. The serum iron was in the upper normal range at 145 mcg/dL with transferrin saturation 30.8%. The serum ferritin, though, was elevated at 606 ng/mL. He had additional evaluation including an erythropoietin level which was in the normal range at 12 mIU/mL. A MICHAEL 2 gene mutation study was negative. The HFE gene analysis showed double heterozygosity for the C282Y and the H63D mutations, consistent with hereditary hemochromatosis. He has been managed on a phlebotomy program. Surveillance chest CT on 12/07/2018 showed stable postoperative changes from prior right upper lobectomy. There was long-term stability of left upper lower lobe nodules. There was chronic emphysema. There was no evidence for recurrent or metastatic neoplastic process. He continued observation/expectant management for the lung cancer. He had then presented to Dr. Tyler's office with swelling and redness in the left arm, in the area of the antecubital fossa. Venous Doppler of the left arm on 02/11/2019 showed extensive occlusive thrombus in the left basilic vein. All other veins of the left upper extremity appeared free of thrombus. He was started on anticoagulation with apixaban. He was seen here for follow-up on 02/25/2019. He then had a restaging PET/CT on 03/10/2019. It showed interval development of abnormal activity in a lytic lesion in the left femoral neck, suspicious for metastatic disease. There was interval resolution of the small right upper lobe lung mass. There were no other areas of abnormal uptake on that study. With those findings, he was referred to Dr. Chin. On 03/17/2019 he underwent prophylactic open reduction with interval fixation of the left hip. Pathology on the bone fragments did confirm metastatic carcinoma consistent with the previous diagnosis of pulmonary infiltrating adenocarcinoma. Following recovery from the surgery he was seen by Dr. Boggs for palliative radiation. He completed treatment on 04/18/2019 to a total dose of 3900 cGy. He tolerated the treatment well. In the meantime, I had also requested a next generation sequencing study. It was performed on the original lung tumor, as the specimen from the left femur was insufficient for analysis. That study showed low PD-L1 expression at 7%. The mutation burden, though, was high. The tumor was negative for EGFR, BRAF, and KRAS mutations, and it also tested negative for the ALK and ROS1 rearrangements. The NTRK fusion also was not detected. I had seen him for a follow-up visit on 05/02/2019. He had restaging CT scans on 06/01/2019 showed no evidence for recurrent disease in the chest, abdomen, or pelvis. In the setting of a treated, solitary metastasis, he was recommended to continue on observation/expectant management. On 06/28/2019 he was seen in the emergency room with complaints of dizziness. CT of the head with and without contrast showed no acute findings. He was diagnosed with vestibular neuronitis. On 07/04/2019 he was admitted to the hospital after returning to the emergency room with acute mental status changes. His repeat head CT showed a 10 mm focal area of low-attenuation in the left frontal lobe which appeared new from the recent study. Was felt to possibly represent a subacute infarct. Further evaluation with brain MRI showed multifocal patchy areas of acute ischemia involving the YUNG territories bilaterally. The largest area of ischemia measured approximately 1 cm. There was no evidence of mass-effect or midline shift. The clinical presentation appeared most consistent with cancer related hypercoagulability. As it occurred while on a therapeutic dose of apixaban, his anticoagulation was transitioned to therapeutic Lovenox. His echocardiogram showed normal left ventricular cavity size and systolic function with estimated ejection fraction at 60%. There were no significant valvular abnormalities noted. There appeared to be no significant change compared to her previous study from July 2018. His bilateral carotid Doppler studies showed just moderate atheromatous plaque bilaterally. Head MRA showed no evidence of high-grade proximal stenosis or aneurysm. He was discharged to [facility] for rehab. At that point, he was still having significant expressive aphasia, but his confusion had improved significantly. He subsequently was able to return home. Restaging CT scans of the chest, abdomen, and pelvis on 07/25/2019 showed stable 5 mm noncalcified pulmonary nodule in the left upper lobe and a 3 mm noncalcified nodule in the left lower lobe. There was no mediastinal or hilar adenopathy. A few scattered hypodensities throughout the liver are too small to characterize but similar to prior studies. A new 7 mm hypodensity was noted in the lower pole of the right kidney. There was increased density within the lumen of a contracted gallbladder, suspicious for stones and/or chronic cholecystitis. There was no osteoblastic or osteolytic bone disease identified. On 08/03/2019 he was seen in the emergency room with dizziness. He has repeat noncontrast head CT showed atrophy and chronic deep white matter ischemic change with no acute intracranial abnormality identified. He was diagnosed with vertigo and treated with meclizine. I had seen him for a follow-up visit on 08/08/2019. He had opted to stop the Lovenox injections, and he had restarted anticoagulation with apixaban. He also was taking Plavix. He was still having some difficulty with his speech and he was having some confusion at times and some difficulty with memory. Subsequent to that visit, his had called and reported that his memory and confusion were continuing to worsen. A repeat brain MRI on 08/23/2019 showed multifocal areas of abnormal diffusion abnormalities and flair signal abnormalities. It was noted to predominantly involve the left hippocampal formation with additional more focal diffusion signal abnormalities extending towards the temporal occipital junction posteriorly. That finding appeared to be most consistent with worsening subacute infarcts. Also noted, though, were additional cortical areas of very subtle enhancement throughout the brain which were suspicious for metastatic lesions. The most concerning were in the left frontal vertex. With those findings, I was able to get his anticoagulation transition back to Lovenox. A repeat PET/CT on 09/01/2019 showed interval development of a small well-circumscribed lytic lesion in the upper femoral neck on the right measuring up to 19 mm with SUV 7.3. A small amount of fracture was noted along the posterior upper border of the left greater trochanter. Abnormal increased activity was noted along the site of the previous suspected metastatic lesion in the left femoral neck with a maximum SUV 6.2, similar to the previous study. There were no other areas of significant abnormal activity identified. Given the PET/CT findings, he was then given palliative radiation to the right hip, completed on 09/28/2019 to a total dose of 3000 cGy. He tolerated the treatment well. In the meantime, a repeat brain MRI on 09/16/2019 again showed numerous bilateral multi lobar acute lacunar infarcts. The previously described areas of enhancement are felt to most likely be related to ischemia and not to metastatic disease. At that time there was felt to be no convincing evidence for metastatic disease. I had seen him for a follow-up visit on 03/2020. At that point he was beginning to show some recovery. I had discussed options for further treatment of the lung cancer. It was quite clear that he was not interested in attempting any chemotherapy. He did agree to continue anticoagulation with Lovenox, and ultimately he also agreed to a trial of immunotherapy. His other medical illnesses include hypertension, hyperlipidemia, type 2 diabetes, coronary artery disease, peripheral vascular disease, and degenerative arthritis. He underwent coronary artery bypass surgery in 1996 and he underwent an arterial bypass procedure to the right leg in 1999. In 2013 he was found to have significant hypoxemia. On evaluation he was found to have COPD and obstructive sleep apnea. 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 Also noted was calcific plaque at the origins of the common iliac arteries at 54% on the left and 60% on the right. He has a history of smoking 1-1 1/2 packs of cigarettes daily, but he quit smoking in 1996. INTERIM HISTORY: On 11/09/2019 he began a trial of immunotherapy with pembrolizumab as a single modality. He tolerated the initial infusion of pembrolizumab with no adverse effects, and he then continued treatment at 3-week intervals. As of 02/22/2020 he completed his 6th cycle. At his follow-up visit on 03/14/2020 he had developed a significant skin eruption on his trunk, mainly the back. With that finding, had stopped both the pembrolizumab and the denosumab, I also had him start prednisone, initially at 20 mg daily. The prednisone was later reduced to 10 mg daily, as the skin eruption was resolving. He was able to restart pembrolizumab on 03/28/2020. I opted to keep the denosumab on hold, as I felt it was the more likely cause for the eruption. He completed his cycle 9 of pembrolizumab on 05/10/2020. He is seen for a follow-up visit. He has been feeling good generally. Since he has been on immunotherapy he also has started treatment with donepezil, and with that he has had significant improvement in his memory and cognitive function. He has reasonably good energy/activity tolerance, though he is still short of breath with activity. His ECOG score is 1. He has good appetite. He has no fever or night sweats. He still has itching on his back, which he is managing topically with CeraVe. He has just occasional cough. He does not complain of chest pain. He has no GI/ complaints other than frequent urination. He has no significant joint or bone pain. He has no focal neurologic symptoms. Medications: Acetaminophen Extra Strength 1 (500 mg) Tablet Oral b.i.d., amLODIPine Besylate 0.5 Tablet (of 5 mg) Oral at bedtime, B-12 1 Tablet (of 1000 mcg) Tablet Oral daily, Bisacodyl 1 Tablet (of 5 mg) Tablet, enteric coated Oral daily PRN, Carvedilol 1 (25 mg) Tablet Oral b.i.d., Cholecalciferol 1 Capsule (of 2000 Units) Oral daily, [employer] Mucus Extended Release 1 Tablet (of 600 mg) Tablet SR 12 HR Oral daily PRN, Donepezil HCl 1 Tablet (of 5 mg) Oral daily, Dulcolax Milk of Magnesia 30 mL (of 400 mg/5mL) Suspension Oral daily PRN, Enoxaparin Sodium 80 mg (of 300 mg/3mL) Injection b.i.d., Famotidine 1 Tablet (of 20 mg) Oral b.i.d. PRN, Fish Oil 1 (1200 mg) Capsule Oral daily, Flonase Suspension Nasal, Gabapentin 1 Tablet (of 300 mg) Oral daily, Hydrocodone-Acetaminophen 1 (5-325 mg) Tablet Oral four times a day PRN, Jardiance 0.5 Tablet (of 12.5 ) Oral daily, Lovastatin 1 Tablet (of 40 mg) Oral b.i.d., Meclizine HCl 1 Tablet (of 25 mg) Oral daily PRN, MetFORMIN HCl 1 Tablet (of 500 mg) Oral b.i.d., Plavix 1 (75 mg) Tablet Oral daily, predniSONE 1 Tablet (of 10 mg) Oral daily, Spiriva Respimat Aerosol, solution Inhalation, Tamsulosin HCl 1 (0.4 mg) Capsule Oral daily Allergies: PENICILLIN AND ALEVE Review of Systems: Constitutional - He has limited activity tolerance, but is able to do light work. Appetite is good and weight is stable. No fever, night sweats, or hot flashes. ECOG score is 1, ENMT - He has constant sinus drainage. No mouth sores. No sore throat or difficulty swallowing, Hematologic/Lymphatic - No abnormal bruising or bleeding, Respiratory - He has shortness of breath with activity. He has some cough with the sinus drainage. No pleuritic pain or hemoptysis, Cardiovascular - No angina pain. No palpitations, Gastrointestinal - No nausea or vomiting. No heartburn or acid reflux. No diarrhea or constipation. No blood in the stool or black stools, Genitourinary (M) - No dysuria or hematuria. He has frequent urination. No urgency or incontinence, Musculoskeletal - No joint or bone pain, Integumentary - He still has an itchy skin eruption on his back, Neurologic - No headache. He has occasional dizzy spells. No numbness or tingling. No other focal neurologic symptoms, Psychiatric - No anxiety or depression. No insomnia. His indicates there has been significant improvement in his memory and cognitive function. Vital Signs: Performed on May 31, 2020 10:32 Height - 65.00 in Weight - 176.2 lbs (HIGH) BSA - 1.87 sq.m BMI - 29.32 Temperature - 98.5 F Pulse - 66 /min Respiration - 20 /min BP - 128/69 mm(hg) O2 Sat - 93 % (LOW) Pain - 0 Physical Examination: Constitutional - He looks pretty good generally, Eyes - Sclerae nonicteric. Conjunctivae clear, ENMT - No lesions noted in the oral cavity, Hematologic/Lymphatic - No cervical, clavicular, or axillary adenopathy, Respiratory - Lungs sound clear with some decrease in air movement bilaterally, Cardiovascular - Heart rhythm is regular. There is no murmur, gallop, or rub noted, Abdomen - Soft. Liver and spleen are not enlarged. There is no abdominal mass or ascites noted and there is no inguinal adenopathy, Extremities - Slight edema, Integumentary - There is a diffuse maculopapular skin eruption on the back. Some of the lesions are crusty, Neurologic - No focal neurologic deficits noted. Lab/Imaging: Test performed on May 31, 2020 09:55 Sodium 137 mmol/L TSH 2.35 uIU/mL Potassium 4.7 mmol/L Chloride 102 mmol/L CO2 25 mmol/L Anion Gap 14.7 BUN 16 mg/dL Creatinine 1.1 mg/dL Cr Clearance (Est) 63.5800 mL/min Glucose 172 mg/dL Osmolality - Calculated 289 mOsm/kg Calcium 9.7 mg/dL Protein, Total 6.5 g/dL Albumin 4.0 g/dL Globulin 2.5 g/dL Bilirubin, Total 0.7 mg/dL ALT (SGPT) 16 U/L AST (SGOT) 14 U/L Alkaline Phosphatase 38 IU/L WBC 5.3 10 3/uL RBC 5.46 10 6/uL HGB 16.9 g/dL HCT 50.7 % MCV 92.9 fL MCH 31.0 pg MCHC 33.3 g/dL RDW 13.9 % Platelet Count 173 10 3/cmm MPV 9.8 fL Neutrophils 3.31 10 3/uL Lymphocytes 1.1 10 3/uL Monocytes 0.5 10 3/uL Eosinophils 0.2 10 3/uL Basophils 0.1 10 3/uL Neutrophil % 62.9 % Lymphocyte % 21.5 % Monocyte % 9.9 % Eosinophil % 4.4 % Basophils % 1.1 % NRBC % 0 % Impression: 1. Patient with nonsmall cell cancer (low-grade adenocarcinoma) involving the upper lobe of the right lung, stage IB (T2a, N0, M0). 2. He underwent right upper lobectomy with mediastinal lymph node biopsy on 04/29/2017. 3. He has hereditary hemochromatosis. He was found to be doubly heterozygous for the C282Y and the H63D mutations. He has had a very good response to phlebotomy, with his subsequent ferritin levels maintained at less than 50 ng/mL compared to a pretreatment level of greater than 600. 4. He has underlying lung disease including COPD and obstructive sleep apnea, and he has associated chronic hypoxia. 5. 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 His other medical illnesses include: 6. Hypertension. 7. Hyperlipidemia. 8. Type II diabetes. 9. Coronary artery disease. 10. Peripheral arterial disease. 11. Degenerative arthritis. In January 2019 he had presented with a deep vein thrombosis of the left arm. It appeared to have been an unprovoked thrombosis. He started anticoagulation with apixaban. His restaging PET/CT on 03/10/2019 showed evidence of a single site of metastatic disease in the form of a lytic bone lesion in the left femoral neck. He underwent prophylactic ORIF of the left hip on 03/17/2019. Pathology confirmed metastatic adenocarcinoma. Following recovery from the surgery, he was seen by Dr. Boggs for palliative radiation. He completed treatment on 04/18/2019 to a total dose of 3900 cGy. During that time, he had additional pathologic evaluation with the next generation sequencing study on his primary lung tumor. It showed low PD-L1 expression at 7%. The mutation burden was high. There were no actionable mutations identified. His restaging CT scans on 06/01/2019 showed no evidence for recurrent disease in the chest, abdomen, or pelvis. In the setting of a treated, solitary metastasis, he was recommended to continue on observation/expectant management. He continued anticoagulation with apixaban. On 07/04/2019 he was admitted to the hospital with multiple cerebral infarcts. I had suspected that it was another manifestation of cancer related hypercoagulability. As it occurred while on a therapeutic dosage of apixaban, his anticoagulation had been transitioned to Lovenox. He was initially transferred to [facility] long term for further rehabilitation, but he subsequently was able to return home. His restaging CT scans of the chest, abdomen, and pelvis on 07/25/2019 showed no obvious progression of the lung cancer. He had then opted to stop the Lovenox injections and restart anticoagulation with apixaban. He also was taking Plavix. He had subsequently developed further decline in cognitive function. His repeat brain MRI on 08/23/2019 showed areas of enhancement which were suspicious for worsening subacute infarcts. There were additional small enhancing lesions which were suspicious for metastases. With those findings his anticoagulation was transitioned back to Lovenox. A repeat PET/CT on 09/01/2019 showed a new small metastatic lesion in the right proximal femur. There was residual activity at the site of the metastatic lesion in the left femur. There were no other areas of abnormal activity noted on that study. He was then given palliative radiation to the right hip, completed on 09/28/2019 to a total dose of 3000 cGy. His repeat brain MRI on 09/16/2019 continued to show evidence of bilateral multilobar acute lacunar infarcts, but there was no convincing evidence for metastatic disease. He then continued anticoagulation with Lovenox, and during followup there was gradual improvement in his neurologic symptoms and in his performance status. On 11/09/2019 he began a trial of immunotherapy with pembrolizumab as a single modality. He tolerated the initial infusion of pembrolizumab with no adverse effects, and he then continued treatment at 3-week intervals. During that time he also began denosumab injections for the metastatic bone involvement. As of his follow-up visit on 03/14/2020 both the pembrolizumab and the denosumab were put on hold to development of skin eruption. The eruption gradually resolved on steroid therapy, and he was able to resume pembrolizumab on 03/28/2020. He has since then been able to taper off prednisone, but with some persistent itching on his back, which he has been managing topically with CeraVe. He otherwise appears to be tolerating treatment well. During his immunotherapy, he also has started treatment with donepezil, and he has had significant improvement in his memory and cognitive function. By clinical evaluation there has been no obvious progression of his lung cancer, but as yet he has not had any restaging imaging. Plan: He will continue with cycle 10 of pembrolizumab 200 mg by IV infusion. The denosumab will remain on hold. He will be given a prescription for triamcinolone cream to use as needed for the itching. He will return for treatment in 3 weeks and for a follow-up visit in 6 weeks. In the meantime, he also will be scheduled for restaging CT scans. Signed By: Shorty Chadwick M.D. <<Signature on File>>
== END 2020-06-18 10:59 | disposition home or self-care (01) ==
LOC: ONCMED 06:08
PROVIDERS: PCP Nurse Practitioner Family; Visit Provider Internal Medicine Medical Oncology
DX: Z51.12 Encounter for antineoplastic immunotherapy (principal); C34.11 Malignant neoplasm of upper lobe, right bronchus or lung; C79.51 Secondary malignant neoplasm of bone; E83.110 Hereditary hemochromatosis; J44.9 Chronic obstructive pulmonary disease, unspecified; G47.33 Obstructive sleep apnea (adult) (pediatric); R09.02 Hypoxemia; D75.1 Secondary polycythemia; I10 Essential (primary) hypertension; E78.5 Hyperlipidemia, unspecified; E11.59 Type 2 diabetes mellitus with other circulatory complications; I25.10 Atherosclerotic heart disease of native coronary artery without angina pectoris; I73.9 Peripheral vascular disease, unspecified; M19.90 Unspecified osteoarthritis, unspecified site; Z86.718 Personal history of other venous thrombosis and embolism; Z79.01 Long term (current) use of anticoagulants; Z79.899 Other long term (current) drug therapy
CPT/HCPCS: 80053; 84443; 85025; 96413; 99214; J7050; J9271

== ENCOUNTER 2020-06-18 09:12 | Outpatient (CLI) | payer MEDICARE, SELFPAY ==
--- NOTE | 2020-06-18 09:21 | CT_ITS ---
WS: [id number] Exam: CT chest abd pel w con* Date/Time of Exam: 06/18/2020 9:25 AM Reason For Exam: MALIGNANT NEOPLASM OF RIGHT UPPER LOBE, BONE CANCER DLP: 2378.[address] scans at [facility] use at least one of these dose optimization techniques: automat ed exposure control; mA and/or kV adjustment per patient size (includes targeted exams where dose is matched to clinical indication); or iterative reconstruction. 100 mL of nonionic radiographic contras t administered intravenously. CT scan of the chest with contrast. The lungs are clear and fully expanded. Mild emphysematous changes noted. No suspicious pulmonary mas s or nodule. Signs of prior right-sided thoracotomy. The airway is patent. No pleural or pericardial effusion. The thoracic aorta is normal in caliber. Signs of previous CABG surgery. The central pulmon alireza arteries are clear. The airway is patent. No lymphadenopathy in the chest. Normal thyroid tissue. No destructive bone lesions are seen. CT/CT chest abd pel w con* IMPRESSION: 1. No pulmonary mass or lymphadenopathy in the chest. 2. Pulmonary emphysema. 3. Status post right-sided thoracotomy and CABG surgery. CT scan of the abdomen and pelvis with IV and oral contrast. Compared to prior study 01/21/2020. Numerous small cysts are noted in the liver. There are stones in the gallbladde r but no sign of acute cholecystitis. The stomach, spleen, and pancreas appear normal. The abdominal aorta is normal in caliber. The portal vein and IVC are p atent. Normal adrenal glands and kidneys. No lymphadenopathy. No free air. Smal l bowel loops are not dilated. No sign of acute appendix. Sigmoid diverticulosi s but no sign of acute diverticulitis. Moderate amount retained stool in the co estela. No pelvic mass or lymphadenopathy. Intact urinary bladder. Small fat fille d right inguinal hernia. There is hardware in the proximal left femur. No destr uctive bone lesions are seen. IMPRESSION: 1. No sign of mass, lymphadenopathy or acute process. 2. Sigmoid diverticulosis. Cholelithiasis. Additional nonacute findings as abov e.
[2020-06-18] MEDS: iohexol 300 mg/mL 50 mL Btl PO (09:38)
[2020-06-18] MEDS: iohexol 300 mg/mL 100 mL Btl IV (11:09)
== END 2020-06-18 09:13 | disposition home or self-care (01) ==
LOC: RADWPI 09:20
PROVIDERS: PCP Nurse Practitioner Family; Visit Provider Internal Medicine Medical Oncology
DX: C34.11 Malignant neoplasm of upper lobe, right bronchus or lung (principal); C79.51 Secondary malignant neoplasm of bone; E83.110 Hereditary hemochromatosis; D75.9 Disease of blood and blood-forming organs, unspecified; R79.89 Other specified abnormal findings of blood chemistry; J43.0 Unilateral pulmonary emphysema [MacLeod's syndrome]; Z95.1 Presence of aortocoronary bypass graft; K57.30 Diverticulosis of large intestine without perforation or abscess without bleeding; K80.20 Calculus of gallbladder without cholecystitis without obstruction
CPT/HCPCS: 71260; 74177; Q9967

== ENCOUNTER 2020-07-03 13:15 | Outpatient (CLI) | payer MEDICARE, SELFPAY ==
[2020-07-03 14:35] LABS: Basophils # 0.1 10^3/uL (0.0-0.1); Eosinophils # 0.3 10^3/uL (0.0-0.8); Eosinophils % 5.1 %; Hematocrit 53.2 % (42.0-52.0); Hemoglobin 17.8 g/dL (11.7-16.6); Lymphocytes # 1.2 10^3/uL (0.8-4.8); Lymphocytes % 20.1 %; Mean Corpuscular HGB Conc 33.5 g/dL (30.0-36.0); Mean Corpuscular Hemoglobin 31.3 pg (28.0-34.0); Mean Corpuscular Volume 93.7 fL (80-94); Mean Platelet Volume 9.6 fL (7.4-10.4); Monocytes # 0.6 10^3/uL (0.2-0.9); Monocytes % 9.8 %; Neutrophils # 3.83 10^3/uL (1.8-7.7); Neutrophils % 63.7 %; Nucleated Red Blood Cells % 0 %; Platelet Count 214 10^3/cmm (130-400); Red Blood Count 5.68 10^6/uL (4.1-5.3); Red Cell Distribution Width 13.6 % (12.1-15.1)
[2020-07-03 15:34] LABS: Alanine Aminotransferase 15 U/L (0-41); Albumin Level 4.1 g/dL (3.5-5.2); Alkaline Phosphatase 37 IU/L (40-130); Aspartate Amino Transferase 16 U/L (0-40); Blood Urea Nitrogen 17 mg/dL (8-23); Carbon Dioxide 23 mmol/L (22-29); Chloride 102 mmol/L (98-107); Globulin 2.7 g/dL (1.3-4.6); Glucose 147 mg/dL (65-115); Osmolality Calculated 286 mOsm/kg (285-295); Sodium 136 mmol/L (136-145); Thyroid Stimulating Hormone 2.97 uIU/mL (0.27-4.20); Total Bilirubin 0.8 mg/dL (0.15-1.2); Total Protein 6.8 g/dL (6.6-8.7)
[2020-07-03 17:22] LABS: Estmated Average Glucose 151; Hemoglobin A1C 6.9 % (4.0-6.0)
--- NOTE | 2020-07-06 16:09 | ONC FU_ITS ---
Manjinder Pimentel Patient Note Patient: Lynnette Sevilla Unit #: [id number]: [id number] Dictated By: Brian LovellDate of Visit: Jul 03, 2020 Onc MED Follow-Up/Prog Note Chief Complaint: Hemochromatosis/lung cancer. 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 His disease was stage IB (T2a, N0, M0) at initial diagnosis, but with subsequent progression to stage TIGIST (M1b). He also has hereditary hemochromatosis. In February [address] Tyler with persistent cough. His evaluation included chest CT on 03/04/2017. It showed a spiculated density in the medial aspect of the anterior segment of the right upper lobe. It measured 1.8 x 2.4 x 1.8 cm and it was new compared to a previous study from November 2013. There was no associated mediastinal or hilar adenopathy, and there was no evidence of liver or adrenal metastases. He underwent bronchoscopy on 04/06/2017. There were no endobronchial lesions identified. The lesion was found to be avid by PET/CT. There was no evidence of metastatic involvement. He underwent right upper lobectomy with mediastinal lymph node biopsy on 04/29/2017. Pathology showed low-grade (grade 1-2) adenocarcinoma measuring 3.2 x 2.4 cm. There was penetration into visceral pleura and there was evidence of lymphovascular space invasion. The margins of resection were free, and there was no involvement in 1 mediastinal lymph node, in 1 lymph node at the right mainstem bronchus, and in 2 hilar lymph nodes. He has continued on observation/expectant management following the surgery, as there appeared to be no indication for adjuvant chemotherapy. Dr Chadwick had initially seen him in October 2012 in regard to elevated hemoglobin/hematocrit levels and elevated serum iron. His evaluation at that time showed his hemoglobin elevated at 18.1 g with hematocrit 52%. White count and platelet count were normal. The serum iron was in the upper normal range at 145 mcg/dL with transferrin saturation 30.8%. The serum ferritin, though, was elevated at 606 ng/mL. He had additional evaluation including an erythropoietin level which was in the normal range at 12 mIU/mL. A MICHAEL 2 gene mutation study was negative. The HFE gene analysis showed double heterozygosity for the C282Y and the H63D mutations, consistent with hereditary hemochromatosis. He has been managed on a phlebotomy program. Surveillance chest CT on 12/07/2018 showed stable postoperative changes from prior right upper lobectomy. There was long-term stability of left upper lower lobe nodules. There was chronic emphysema. There was no evidence for recurrent or metastatic neoplastic process. He continued observation/expectant management for the lung cancer. He had then presented to Dr. Tyler's office with swelling and redness in the left arm, in the area of the antecubital fossa. Venous Doppler of the left arm on 02/11/2019 showed extensive occlusive thrombus in the left basilic vein. All other veins of the left upper extremity appeared free of thrombus. He was started on anticoagulation with apixaban. He was seen here for follow-up on 02/25/2019. He then had a restaging PET/CT on 03/10/2019. It showed interval development of abnormal activity in a lytic lesion in the left femoral neck, suspicious for metastatic disease. There was interval resolution of the small right upper lobe lung mass. There were no other areas of abnormal uptake on that study. With those findings, he was referred to Dr. Chin. On 03/17/2019 he underwent prophylactic open reduction with interval fixation of the left hip. Pathology on the bone fragments did confirm metastatic carcinoma consistent with the previous diagnosis of pulmonary infiltrating adenocarcinoma. Following recovery from the surgery he was seen by Dr. Boggs for palliative radiation. He completed treatment on 04/18/2019 to a total dose of 3900 cGy. He tolerated the treatment well. In the meantime, I had also requested a next generation sequencing study. It was performed on the original lung tumor, as the specimen from the left femur was insufficient for analysis. That study showed low PD-L1 expression at 7%. The mutation burden, though, was high. The tumor was negative for EGFR, BRAF, and KRAS mutations, and it also tested negative for the ALK and ROS1 rearrangements. The NTRK fusion also was not detected. I had seen him for a follow-up visit on 05/02/2019. He had restaging CT scans on 06/01/2019 showed no evidence for recurrent disease in the chest, abdomen, or pelvis. In the setting of a treated, solitary metastasis, he was recommended to continue on observation/expectant management. On 06/28/2019 he was seen in the emergency room with complaints of dizziness. CT of the head with and without contrast showed no acute findings. He was diagnosed with vestibular neuronitis. On 07/04/2019 he was admitted to the hospital after returning to the emergency room with acute mental status changes. His repeat head CT showed a 10 mm focal area of low-attenuation in the left frontal lobe which appeared new from the recent study. Was felt to possibly represent a subacute infarct. Further evaluation with brain MRI showed multifocal patchy areas of acute ischemia involving the YUNG territories bilaterally. The largest area of ischemia measured approximately 1 cm. There was no evidence of mass-effect or midline shift. The clinical presentation appeared most consistent with cancer related hypercoagulability. As it occurred while on a therapeutic dose of apixaban, his anticoagulation was transitioned to therapeutic Lovenox. His echocardiogram showed normal left ventricular cavity size and systolic function with estimated ejection fraction at 60%. There were no significant valvular abnormalities noted. There appeared to be no significant change compared to her previous study from July 2018. His bilateral carotid Doppler studies showed just moderate atheromatous plaque bilaterally. Head MRA showed no evidence of high-grade proximal stenosis or aneurysm. He was discharged to [facility] for rehab. At that point, he was still having significant expressive aphasia, but his confusion had improved significantly. He subsequently was able to return home. Restaging CT scans of the chest, abdomen, and pelvis on 07/25/2019 showed stable 5 mm noncalcified pulmonary nodule in the left upper lobe and a 3 mm noncalcified nodule in the left lower lobe. There was no mediastinal or hilar adenopathy. A few scattered hypodensities throughout the liver are too small to characterize but similar to prior studies. A new 7 mm hypodensity was noted in the lower pole of the right kidney. There was increased density within the lumen of a contracted gallbladder, suspicious for stones and/or chronic cholecystitis. There was no osteoblastic or osteolytic bone disease identified. On 08/03/2019 he was seen in the emergency room with dizziness. He has repeat noncontrast head CT showed atrophy and chronic deep white matter ischemic change with no acute intracranial abnormality identified. He was diagnosed with vertigo and treated with meclizine. Dr Chadwick had seen him for a follow-up visit on 08/08/2019. He had opted to stop the Lovenox injections, and he had restarted anticoagulation with apixaban. He also was taking Plavix. He was still having some difficulty with his speech and he was having some confusion at times and some difficulty with memory. Subsequent to that visit, his had called and reported that his memory and confusion were continuing to worsen. A repeat brain MRI on 08/23/2019 showed multifocal areas of abnormal diffusion abnormalities and flair signal abnormalities. It was noted to predominantly involve the left hippocampal formation with additional more focal diffusion signal abnormalities extending towards the temporal occipital junction posteriorly. That finding appeared to be most consistent with worsening subacute infarcts. Also noted, though, were additional cortical areas of very subtle enhancement throughout the brain which were suspicious for metastatic lesions. The most concerning were in the left frontal vertex. With those findings, Dr Chadwick was able to get his anticoagulation transition back to Lovenox. A repeat PET/CT on 09/01/2019 showed interval development of a small well-circumscribed lytic lesion in the upper femoral neck on the right measuring up to 19 mm with SUV 7.3. A small amount of fracture was noted along the posterior upper border of the left greater trochanter. Abnormal increased activity was noted along the site of the previous suspected metastatic lesion in the left femoral neck with a maximum SUV 6.2, similar to the previous study. There were no other areas of significant abnormal activity identified. Given the PET/CT findings, he was then given palliative radiation to the right hip, completed on 09/28/2019 to a total dose of 3000 cGy. He tolerated the treatment well. In the meantime, a repeat brain MRI on 09/16/2019 again showed numerous bilateral multi lobar acute lacunar infarcts. The previously described areas of enhancement are felt to most likely be related to ischemia and not to metastatic disease. At that time there was felt to be no convincing evidence for metastatic disease. Dr Chadwick had seen him for a follow-up visit on 03/2020. At that point he was beginning to show some recovery. Dr Chadwick had discussed options for further treatment of the lung cancer. It was quite clear that he was not interested in attempting any chemotherapy. He did agree to continue anticoagulation with Lovenox, and ultimately he also agreed to a trial of immunotherapy. His other medical illnesses include hypertension, hyperlipidemia, type 2 diabetes, coronary artery disease, peripheral vascular disease, and degenerative arthritis. He underwent coronary artery bypass surgery in 1996 and he underwent an arterial bypass procedure to the right leg in 1999. In 2013 he was found to have significant hypoxemia. On evaluation he was found to have COPD and obstructive sleep apnea. 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 Also noted was calcific plaque at the origins of the common iliac arteries at 54% on the left and 60% on the right. He has a history of smoking 1-1 1/2 packs of cigarettes daily, but he quit smoking in 1996. INTERIM HISTORY: On 11/09/2019 he began a trial of immunotherapy with pembrolizumab as a single modality. He tolerated the initial infusion of pembrolizumab with no adverse effects, and he then continued treatment at 3-week intervals. As of 02/22/2020 he completed his 6th cycle. At his follow-up visit on 03/14/2020 he had developed a significant skin eruption on his trunk, mainly the back. With that finding, had stopped both the pembrolizumab and the denosumab, and was started prednisone, initially at 20 mg daily. The prednisone was later reduced to 10 mg daily, as the skin eruption was resolving. He was able to restart pembrolizumab on 03/28/2020. It was opted to keep the denosumab on hold, as it was felt it was the more likely cause for the eruption. He completed his cycle 9 of pembrolizumab on 05/10/2020. Mr. Sevilla is here today for follow-up. He has no new concerns. He denies any fever or chills. He states his appetite is good. Energy is good. 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 He denies any new pain. He states he is eating good. His states that he is eating good and his energy is good. He denies any shortness of breath orthopnea. He said no diarrhea or constipation. He denies any bladder changes. He denies any lower extremity swelling. He has some persistent/chronic mild neuropathy but states it is stable and does not bother him. His ECOG is 0. Past Medical History: Coronary artery disease Deep vein thrombosis Degenerative arthritis Hyperlipidemia Hypertension Peripheral vascular disease Type II diabetes His medical illnesses include hypertension, hyperlipidemia, type 2 diabetes, coronary artery disease, peripheral vascular disease, and degenerative arthritis. Past Surgical History: Heart by-pass - quadruple bypass Flu vac[facility] 2019 Left femoral neck biopsy in 2018 Open reduction internal fixation Left hip-Dr Chin in 2018 Right upper lobectomy with mediastinal lymph node biopsy-Dr Rivers in 2016 He underwent coronary artery bypass surgery in 1996 and an arterial bypass procedure to the right leg in 1999. His only other surgery was an appendectomy in 1955. Allergies: PENICILLIN AND ALEVE Medications: Acetaminophen Extra Strength 1 (500 mg) Tablet Oral b.i.d. amLODIPine Besylate 0.5 Tablet (of 5 mg) Oral at bedtime B-12 1 Tablet (of 1000 mcg) Tablet Oral daily Bisacodyl 1 Tablet (of 5 mg) Tablet, enteric coated Oral daily PRN Carvedilol 1 (25 mg) Tablet Oral b.i.d. Cholecalciferol 1 Capsule (of 2000 Units) Oral daily [facility] Mucus Extended Release 1 Tablet (of 600 mg) Tablet SR 12 HR Oral daily PRN Donepezil HCl 1 Tablet (of 5 mg) Oral daily Dulcolax Milk of Magnesia 30 mL (of 400 mg/5mL) Suspension Oral daily PRN Enoxaparin Sodium 80 mg (of 300 mg/3mL) Injection b.i.d. Famotidine 1 Tablet (of 20 mg) Oral b.i.d. PRN Fish Oil 1 (1200 mg) Capsule Oral daily Flonase Suspension Nasal Gabapentin 1 Tablet (of 300 mg) Oral daily Hydrocodone-Acetaminophen 1 (5-325 mg) Tablet Oral four times a day PRN Jardiance 0.5 Tablet (of 12.5 ) Oral daily Lovastatin 1 Tablet (of 40 mg) Oral b.i.d. Meclizine HCl 1 Tablet (of 25 mg) Oral daily PRN MetFORMIN HCl 1 Tablet (of 500 mg) Oral b.i.d. Plavix 1 (75 mg) Tablet Oral daily predniSONE 1 Tablet (of 10 mg) Oral daily Spiriva Respimat Aerosol, solution Inhalation Tamsulosin HCl 1 (0.4 mg) Capsule Oral daily Family History: His father following stomach surgery at age 66. His mother had diabetes and with kidney thought here at age 74. A half-brother had alcoholic cirrhosis and as a result of an injury. A sister of leukemia at age 6. 3 other sisters and one brother are still living and in good health. Social History: Mr. Sevilla is and he is retired. Mr. Sevilla quit smoking 17 years ago but had smoked 1.5 packs/day for 23 years. He quit drinking 11 years ago. He has indicated exposure to the following products: cigarettes. Mr. Sevilla reports the following support systems: lives with spouse, significant other, family, or friends, lives in own house, supportive family/friends willing to assist with needs, and adequate transportation available for expected visits. His diet consists of regular meals. He indicates his activity level as: daily activities. He is retired. He had previously smoked up to a pack and a half of cigarettes daily. He quit in 1996. He has had social alcohol use in the past. He has had no alcohol use for at least 10 years or more. Review Of Symptoms: Constitutional Denies fevers, chills, night sweats, excessive fatigue or weight loss. Allergic/Immunologic No reactions. Eyes Denies significant visual changes. No diplopia. No amaurosis. ENMT Denies changes in hearing, sore throat, mouth sores, difficulty or changes in swallowing ability, and/or sinus drainage. Hematologic/Lymphatic Denies easy bruising or bleeding. The patient denies any tender or palpable lymph nodes. Respiratory Denies dyspnea on exertion, chest pain, or hemoptysis. Denies orthopnea. Cardiovascular Denies anginal chest pain, palpitations or orthopnea. Gastrointestinal Denies nausea, vomiting, GI bleeding, or constipation. Denies change in bowel habits and/or stool color, no heartburn or early satiety. Genitourinary (M) Denies hematuria, dysuria, increased frequency, urgency, hesitancy or incontinence. Musculoskeletal Denies joint pain, swelling or redness. No decreased range of motion. Integumentary Denies chronic rashes, inflammation, ulcerations or skin changes. Neurologic Denies headache, blurred vision, and no areas of focal weakness or numbness. Normal gait. No sensory problems. Psychiatric Denies insomnia, depression, giovanni or mood swings. Vital Signs: Performed on Jul 03, 2020 15:03 Height - 65.00 in Weight - 177.0 lbs (HIGH) BSA - 1.88 sq.m BMI - 29.45 Temperature - 97.6 F (LOW) Pulse - 65 /min Respiration - 19 /min BP - 133/67 mm(hg) O2 Sat - 91 % (LOW) Pain - 0,0 - Fully active, able to carry on all predisease activities without restrictions. (ECOG) Physical Examination: Constitutional Alert, oriented, no acute distress. Skin pink, warm and dry. Head Normocephalic; atraumatic. Eyes Conjunctivae and sclerae are clear and without icterus. Pupils are reactive and equal. Neck Supple without masses or thyromegaly. No jugular venous distension. Hematologic/Lymphatic No petechiae or purpura. No tender or palpable lymph nodes in the cervical or supraclavicular areas. Respiratory Lungs are clear to auscultation without rhonchi or wheezing. Cardiovascular Regular rate and rhythm of heart without murmurs,clicks, gallops or rubs. Abdomen Non-tender, non-distended, no masses, ascites. Good bowel sounds noted in all quads. No guarding or rebound tenderness. No pulsatile masses. Back/Spine Non-tender to palpation. Extremities No visible deformities, no cyanosis, clubbing or edema. Musculoskeletal No tenderness or swelling, normal range of motion without obvious weakness. Integumentary No rashes or lesions. Neurologic No sensory or motor deficits, normal cerebellar function, normal gait. Psychiatric Alert and oriented times three. Coherent speech. Verbalizes understanding of our discussions today. Laboratory:Test performed on Jul 03, 2020 14:08 Sodium 136 mmol/L TSH 2.97 uIU/mL Potassium 5.0 mmol/L Chloride 102 mmol/L Est Avg Glucose (eAG) 151 mg/dL CO2 23 mmol/L Anion Gap 16.0 BUN 17 mg/dL Creatinine 0.9 mg/dL Cr Clearance (Est) 76.8200 mL/min Glucose 147 mg/dL Osmolality - Calculated 286 mOsm/kg Calcium 10.0 mg/dL Protein, Total 6.8 g/dL Albumin 4.1 g/dL Globulin 2.7 g/dL Bilirubin, Total 0.8 mg/dL ALT (SGPT) 15 U/L AST (SGOT) 16 U/L Alkaline Phosphatase 37 IU/L Hemoglobin A1C % 6.9 % WBC 6.0 10 3/uL RBC 5.68 10 6/uL HGB 17.8 g/dL HCT 53.2 % MCV 93.7 fL MCH 31.3 pg MCHC 33.5 g/dL RDW 13.6 % Platelet Count 214 10 3/cmm MPV 9.6 fL Neutrophils 3.83 10 3/uL Lymphocytes 1.2 10 3/uL Monocytes 0.6 10 3/uL Eosinophils 0.3 10 3/uL Basophils 0.1 10 3/uL Neutrophil % 63.7 % Lymphocyte % 20.1 % Monocyte % 9.8 % Eosinophil % 5.1 % Basophils % 1.0 % NRBC % 0 % Impression: 1. Patient with nonsmall cell cancer (low-grade adenocarcinoma) involving the upper lobe of the right lung, stage IB (T2a, N0, M0). 2. He underwent right upper lobectomy with mediastinal lymph node biopsy on 04/29/2017. 3. He has hereditary hemochromatosis. He was found to be doubly heterozygous for the C282Y and the H63D mutations. He has had a very good response to phlebotomy, with his subsequent ferritin levels maintained at less than 50 ng/mL compared to a pretreatment level of greater than 600. 4. He has underlying lung disease including COPD and obstructive sleep apnea, and he has associated chronic hypoxia. 5. 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 His other medical illnesses include: 6. Hypertension. 7. Hyperlipidemia. 8. Type II diabetes. 9. Coronary artery disease. 10. Peripheral arterial disease. 11. Degenerative arthritis. In January 2019 he had presented with a deep vein thrombosis of the left arm. It appeared to have been an unprovoked thrombosis. He started anticoagulation with apixaban. His restaging PET/CT on 03/10/2019 showed evidence of a single site of metastatic disease in the form of a lytic bone lesion in the left femoral neck. He underwent prophylactic ORIF of the left hip on 03/17/2019. Pathology confirmed metastatic adenocarcinoma. Following recovery from the surgery, he was seen by Dr. Boggs for palliative radiation. He completed treatment on 04/18/2019 to a total dose of 3900 cGy. During that time, he had additional pathologic evaluation with the next generation sequencing study on his primary lung tumor. It showed low PD-L1 expression at 7%. The mutation burden was high. There were no actionable mutations identified. His restaging CT scans on 06/01/2019 showed no evidence for recurrent disease in the chest, abdomen, or pelvis. In the setting of a treated, solitary metastasis, he was recommended to continue on observation/expectant management. He continued anticoagulation with apixaban. On 07/04/2019 he was admitted to the hospital with multiple cerebral infarcts. Dr Chadwick had suspected that it was another manifestation of cancer related hypercoagulability. As it occurred while on a therapeutic dosage of apixaban, his anticoagulation had been transitioned to Lovenox. He was initially transferred to [facility] for further rehabilitation, but he subsequently was able to return home. His restaging CT scans of the chest, abdomen, and pelvis on 07/25/2019 showed no obvious progression of the lung cancer. He had then opted to stop the Lovenox injections and restart anticoagulation with apixaban. He also was taking Plavix. He had subsequently developed further decline in cognitive function. His repeat brain MRI on 08/23/2019 showed areas of enhancement which were suspicious for worsening subacute infarcts. There were additional small enhancing lesions which were suspicious for metastases. With those findings his anticoagulation was transitioned back to Lovenox. A repeat PET/CT on 09/01/2019 showed a new small metastatic lesion in the right proximal femur. There was residual activity at the site of the metastatic lesion in the left femur. There were no other areas of abnormal activity noted on that study. He was then given palliative radiation to the right hip, completed on 09/28/2019 to a total dose of 3000 cGy. His repeat brain MRI on 09/16/2019 continued to show evidence of bilateral multilobar acute lacunar infarcts, but there was no convincing evidence for metastatic disease. He then continued anticoagulation with Lovenox, and during followup there was gradual improvement in his neurologic symptoms and in his performance status. On 11/09/2019 he began a trial of immunotherapy with pembrolizumab as a single modality. He tolerated the initial infusion of pembrolizumab with no adverse effects, and he then continued treatment at 3-week intervals. During that time he also began denosumab injections for the metastatic bone involvement. As of his follow-up visit on 03/14/2020 both the pembrolizumab and the denosumab were put on hold to development of skin eruption. The eruption gradually resolved on steroid therapy, and he was able to resume pembrolizumab on 03/28/2020. He has since then been able to taper off prednisone, but with some persistent itching on his back, which he has been managing topically with CeraVe. He otherwise appears to be tolerating treatment well. During his immunotherapy, he also has started treatment with donepezil, and he has had significant improvement in his memory and cognitive function. By clinical evaluation there has been no obvious progression of his lung cancer. He did have follow-up CT of the chest abdomen pelvis on 06/18/2020 which reported no signs of mass, lymphadenopathy or acute process. There was sigmoid diverticulosis, cholelithiasis but no acute findings. The CT of the chest identified pulmonary emphysema right-sided thoracotomy and CABG surgery but no pulmonary masses or lymphadenopathy. Plan: PROBLEMS ADDRESSED TODAY a. NSCLC right upper lobe: 1. He will continue with cycle 11 of pembrolizumab 400 mg by IV infusion. I offered him 6-week treatment options as it has been 6 weeks since his last treatment and he has done well. He declines this and states he wants to stay on every 3 weeks for now and maybe will reconsider in the spring when the weather is good he can get out and do something. 2. The denosumab will remain on hold due to persistent rash for several weeks post treatment. 3. Today's labs were reviewed in detail and discussed with Mr. Sevilla and a copy was given to him. WBC 6.0, hemoglobin 17.8, platelets 214,000 ANC is 3830. Potassium 4.7 creatinine 1.2 LFTs are normal TSH is 2.36 hemoglobin A1c was 6.9. 4. CT scan from 06/18/2020 was also reviewed in detail and discussed with Mr. Mrs. Sevilla and a copy was given to them. There were no acute findings he does have chronic emphysema sigmoid diverticulosis and cholelithiasis but no acute findings. 5. 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 As he currently has no obvious immunodeficiencies on his labs, he may return to work but with normal precautions during the pandemic. He states he is just going crazy sitting around the house and wants to get out . 6. We did discuss the current 19 virus vaccine and whether or not he should get that. He was advised that there are many unknowns regarding how patients on immunotherapy or chemotherapy will react to the vaccine and how that will affect the overall immunity offered by the injections. He is also aware that we cannot predict side effects at this point. However the general tendency has been leaning more towards coverage even if reduced due to current treatment is better than nothing. We are not discouraging or encouraging cancer patients at this time but leaving that decision up to them. 6. We will plan to see him back with a CBC CMP in 6 weeks with visit and cycle 13 pembrolizumab. He will return in 3 weeks for cycle 12 pembrolizumab without labs or follow-up. Signed By: Brian Lovell-, AOCNP Shorty Chadwick MD <<Signature on File>>
== END 2020-07-03 13:16 | disposition home or self-care (01) ==
LOC: ONCMED 13:21
PROVIDERS: Nurse Practitioner; PCP Nurse Practitioner Family; Visit Provider Internal Medicine Medical Oncology
DX: C34.11 Malignant neoplasm of upper lobe, right bronchus or lung (principal); C79.51 Secondary malignant neoplasm of bone; E83.110 Hereditary hemochromatosis; L27.0 Generalized skin eruption due to drugs and medicaments taken internally; T45.1X5A Adverse effect of antineoplastic and immunosuppressive drugs, initial encounter; Z79.899 Other long term (current) drug therapy; I10 Essential (primary) hypertension; J44.9 Chronic obstructive pulmonary disease, unspecified; G47.33 Obstructive sleep apnea (adult) (pediatric); R09.02 Hypoxemia; E78.5 Hyperlipidemia, unspecified; Z90.2 Acquired absence of lung [part of]; E11.51 Type 2 diabetes mellitus with diabetic peripheral angiopathy without gangrene; I25.10 Atherosclerotic heart disease of native coronary artery without angina pectoris; M19.90 Unspecified osteoarthritis, unspecified site
CPT/HCPCS: 80053; 83036; 84443; 85025; 96413; 99214; J7050; J9271

== ENCOUNTER → 2020-07-09 12:54 | Outpatient (BNVA) | payer MEDICARE, SELFPAY | PROVIDERS: PCP Nurse Practitioner Family; Visit Provider Specialist | DX: G30.9 Alzheimer's disease, unspecified (principal); F02.80 Dementia in other diseases classified elsewhere, unspecified severity, without behavioral disturbance, psychotic disturbance, mood disturbance, and anxiety; I69.311 Memory deficit following cerebral infarction; F01.50 Vascular dementia, unspecified severity, without behavioral disturbance, psychotic disturbance, mood disturbance, and anxiety; R44.0 Auditory hallucinations; Z87.891 Personal history of nicotine dependence | CPT/HCPCS: 96116; 99215 ==

== ENCOUNTER 2020-07-24 06:19 | Outpatient (CLI) | payer MEDICARE, SELFPAY ==
[2020-07-24 09:15] LABS: Basophils # 0.1 10^3/uL (0.0-0.1); Basophils % 1.1 %; Eosinophils # 0.3 10^3/uL (0.0-0.8); Eosinophils % 4.9 %; Hematocrit 52.8 % (42.0-52.0); Hemoglobin 17.9 g/dL (11.7-16.6); Lymphocytes # 1.2 10^3/uL (0.8-4.8); Lymphocytes % 18.3 %; Mean Corpuscular HGB Conc 33.9 g/dL (30.0-36.0); Mean Corpuscular Hemoglobin 31.5 pg (28.0-34.0); Mean Corpuscular Volume 92.8 fL (80-94); Mean Platelet Volume 10.1 fL (7.4-10.4); Monocytes # 0.6 10^3/uL (0.2-0.9); Neutrophils # 4.09 10^3/uL (1.8-7.7); Neutrophils % 65.4 %; Nucleated Red Blood Cells % 0 %; Platelet Count 177 10^3/cmm (130-400); Red Blood Count 5.69 10^6/uL (4.1-5.3); Red Cell Distribution Width 13.3 % (12.1-15.1); White Blood Count 6.3 10^3/uL (4.0-10.0)
[2020-07-24 09:53] LABS: Alanine Aminotransferase 16 U/L (0-41); Albumin Level 4.5 g/dL (3.5-5.2); Alkaline Phosphatase 36 IU/L (40-130); Anion Gap 16.6 (5-19); Aspartate Amino Transferase 14 U/L (0-40); Blood Urea Nitrogen 22 mg/dL (8-23); Calcium 9.9 mg/dL (8.5-10.5); Carbon Dioxide 26 mmol/L (22-29); Chloride 100 mmol/L (98-107); Globulin 2.7 g/dL (1.3-4.6); Glucose 180 mg/dL (65-115); Osmolality Calculated 294 mOsm/kg (285-295); Potassium 4.6 mmol/L (3.5-5.1); Sodium 138 mmol/L (136-145); Thyroid Stimulating Hormone 3.45 uIU/mL (0.27-4.20); Total Bilirubin 0.8 mg/dL (0.15-1.2); Total Protein 7.2 g/dL (6.6-8.7)
== END 2020-07-24 06:20 | disposition home or self-care (01) ==
LOC: ONCMED 06:21
PROVIDERS: PCP Nurse Practitioner Family; Visit Provider Nurse Practitioner
DX: Z51.12 Encounter for antineoplastic immunotherapy (principal); C34.11 Malignant neoplasm of upper lobe, right bronchus or lung; C79.51 Secondary malignant neoplasm of bone; Z79.899 Other long term (current) drug therapy
CPT/HCPCS: 80053; 84443; 85025; 96413; J7050; J9271

== ENCOUNTER 2020-08-22 08:19 | Outpatient (CLI) | payer MEDICARE, SELFPAY ==
[2020-08-22 09:37] LABS: Basophils % 0.8 %; Eosinophils # 0.3 10^3/uL (0.0-0.8); Hematocrit 53.2 % (42.0-52.0); Hemoglobin 17.9 g/dL (11.7-16.6); Lymphocytes # 1.2 10^3/uL (0.8-4.8); Lymphocytes % 21.6 %; Mean Corpuscular HGB Conc 33.6 g/dL (30.0-36.0); Mean Corpuscular Hemoglobin 31.3 pg (28.0-34.0); Mean Platelet Volume 9.5 fL (7.4-10.4); Monocytes # 0.5 10^3/uL (0.2-0.9); Monocytes % 9.2 %; Nucleated Red Blood Cells % 0 %; Platelet Count 180 10^3/cmm (130-400); Red Blood Count 5.72 10^6/uL (4.1-5.3); Red Cell Distribution Width 13.2 % (12.1-15.1); White Blood Count 5.3 10^3/uL (4.0-10.0)
[2020-08-22 09:55] LABS: Alanine Aminotransferase 14 U/L (0-41); Albumin Level 4.4 g/dL (3.5-5.2); Alkaline Phosphatase 34 IU/L (40-130); Anion Gap 14.2 (5-19); Aspartate Amino Transferase 13 U/L (0-40); Blood Urea Nitrogen 19 mg/dL (8-23); Calcium 9.9 mg/dL (8.5-10.5); Carbon Dioxide 26 mmol/L (22-29); Chloride 100 mmol/L (98-107); Globulin 2.7 g/dL (1.3-4.6); Glucose 173 mg/dL (65-115); Osmolality Calculated 288 mOsm/kg (285-295); Potassium 4.2 mmol/L (3.5-5.1); Sodium 136 mmol/L (136-145); Thyroid Stimulating Hormone 2.74 uIU/mL (0.27-4.20); Total Bilirubin 0.8 mg/dL (0.15-1.2); Total Protein 7.1 g/dL (6.6-8.7)
[2020-08-22 12:53] LABS: Estmated Average Glucose 148; Hemoglobin A1C 6.8 % (4.0-6.0)
--- NOTE | 2020-08-22 20:13 | ONC FU_ITS ---
Dr. Chadwick Patient Follow-Up Note Patient: Lynnette Sevilla Unit #: [id number]: 1940 Dicatated By: Shorty Chadwick M.D.Date of Visit:Aug 22, 2020 Onc Med Follow-up/Prog Note Chief Complaint: Hemochromatosis/lung cancer. 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 His disease was stage IB (T2a, N0, M0) at initial diagnosis, but with subsequent progression to stage TIGIST (M1b). He also has hereditary hemochromatosis. In February [address] Tyler with persistent cough. His evaluation included chest CT on 03/04/2017. It showed a spiculated density in the medial aspect of the anterior segment of the right upper lobe. It measured 1.8 x 2.4 x 1.8 cm and it was new compared to a previous study from November 2013. There was no associated mediastinal or hilar adenopathy, and there was no evidence of liver or adrenal metastases. He underwent bronchoscopy on 04/06/2017. There were no endobronchial lesions identified. The lesion was found to be avid by PET/CT. There was no evidence of metastatic involvement. He underwent right upper lobectomy with mediastinal lymph node biopsy on 04/29/2017. Pathology showed low-grade (grade 1-2) adenocarcinoma measuring 3.2 x 2.4 cm. There was penetration into visceral pleura and there was evidence of lymphovascular space invasion. The margins of resection were free, and there was no involvement in 1 mediastinal lymph node, in 1 lymph node at the right mainstem bronchus, and in 2 hilar lymph nodes. He has continued on observation/expectant management following the surgery, as there appeared to be no indication for adjuvant chemotherapy. I had initially seen him in October 2012 in regard to elevated hemoglobin/hematocrit levels and elevated serum iron. His evaluation at that time showed his hemoglobin elevated at 18.1 g with hematocrit 52%. White count and platelet count were normal. The serum iron was in the upper normal range at 145 mcg/dL with transferrin saturation 30.8%. The serum ferritin, though, was elevated at 606 ng/mL. He had additional evaluation including an erythropoietin level which was in the normal range at 12 mIU/mL. A MICHAEL 2 gene mutation study was negative. The HFE gene analysis showed double heterozygosity for the C282Y and the H63D mutations, consistent with hereditary hemochromatosis. He has been managed on a phlebotomy program. Surveillance chest CT on 12/07/2018 showed stable postoperative changes from prior right upper lobectomy. There was long-term stability of left upper lower lobe nodules. There was chronic emphysema. There was no evidence for recurrent or metastatic neoplastic process. He continued observation/expectant management for the lung cancer. He had then presented to Dr. Tyler's office with swelling and redness in the left arm, in the area of the antecubital fossa. Venous Doppler of the left arm on 02/11/2019 showed extensive occlusive thrombus in the left basilic vein. All other veins of the left upper extremity appeared free of thrombus. He was started on anticoagulation with apixaban. He was seen here for follow-up on 02/25/2019. He then had a restaging PET/CT on 03/10/2019. It showed interval development of abnormal activity in a lytic lesion in the left femoral neck, suspicious for metastatic disease. There was interval resolution of the small right upper lobe lung mass. There were no other areas of abnormal uptake on that study. With those findings, he was referred to Dr. Chin. On 03/17/2019 he underwent prophylactic open reduction with interval fixation of the left hip. Pathology on the bone fragments did confirm metastatic carcinoma consistent with the previous diagnosis of pulmonary infiltrating adenocarcinoma. Following recovery from the surgery he was seen by Dr. Boggs for palliative radiation. He completed treatment on 04/18/2019 to a total dose of 3900 cGy. He tolerated the treatment well. In the meantime, I had also requested a next generation sequencing study. It was performed on the original lung tumor, as the specimen from the left femur was insufficient for analysis. That study showed low PD-L1 expression at 7%. The mutation burden, though, was high. The tumor was negative for EGFR, BRAF, and KRAS mutations, and it also tested negative for the ALK and ROS1 rearrangements. The NTRK fusion also was not detected. I had seen him for a follow-up visit on 05/02/2019. He had restaging CT scans on 06/01/2019 showed no evidence for recurrent disease in the chest, abdomen, or pelvis. In the setting of a treated, solitary metastasis, he was recommended to continue on observation/expectant management. On 06/28/2019 he was seen in the emergency room with complaints of dizziness. CT of the head with and without contrast showed no acute findings. He was diagnosed with vestibular neuronitis. On 07/04/2019 he was admitted to the hospital after returning to the emergency room with acute mental status changes. His repeat head CT showed a 10 mm focal area of low-attenuation in the left frontal lobe which appeared new from the recent study. Was felt to possibly represent a subacute infarct. Further evaluation with brain MRI showed multifocal patchy areas of acute ischemia involving the YUNG territories bilaterally. The largest area of ischemia measured approximately 1 cm. There was no evidence of mass-effect or midline shift. The clinical presentation appeared most consistent with cancer related hypercoagulability. As it occurred while on a therapeutic dose of apixaban, his anticoagulation was transitioned to therapeutic Lovenox. His echocardiogram showed normal left ventricular cavity size and systolic function with estimated ejection fraction at 60%. There were no significant valvular abnormalities noted. There appeared to be no significant change compared to her previous study from July 2018. His bilateral carotid Doppler studies showed just moderate atheromatous plaque bilaterally. Head MRA showed no evidence of high-grade proximal stenosis or aneurysm. He was discharged to [facility] for rehab. At that point, he was still having significant expressive aphasia, but his confusion had improved significantly. He subsequently was able to return home. Restaging CT scans of the chest, abdomen, and pelvis on 07/25/2019 showed stable 5 mm noncalcified pulmonary nodule in the left upper lobe and a 3 mm noncalcified nodule in the left lower lobe. There was no mediastinal or hilar adenopathy. A few scattered hypodensities throughout the liver are too small to characterize but similar to prior studies. A new 7 mm hypodensity was noted in the lower pole of the right kidney. There was increased density within the lumen of a contracted gallbladder, suspicious for stones and/or chronic cholecystitis. There was no osteoblastic or osteolytic bone disease identified. On 08/03/2019 he was seen in the emergency room with dizziness. He has repeat noncontrast head CT showed atrophy and chronic deep white matter ischemic change with no acute intracranial abnormality identified. He was diagnosed with vertigo and treated with meclizine. I had seen him for a follow-up visit on 08/08/2019. He had opted to stop the Lovenox injections, and he had restarted anticoagulation with apixaban. He also was taking Plavix. He was still having some difficulty with his speech and he was having some confusion at times and some difficulty with memory. Subsequent to that visit, his had called and reported that his memory and confusion were continuing to worsen. A repeat brain MRI on 08/23/2019 showed multifocal areas of abnormal diffusion abnormalities and flair signal abnormalities. It was noted to predominantly involve the left hippocampal formation with additional more focal diffusion signal abnormalities extending towards the temporal occipital junction posteriorly. That finding appeared to be most consistent with worsening subacute infarcts. Also noted, though, were additional cortical areas of very subtle enhancement throughout the brain which were suspicious for metastatic lesions. The most concerning were in the left frontal vertex. With those findings, I was able to get his anticoagulation transition back to Lovenox. A repeat PET/CT on 09/01/2019 showed interval development of a small well-circumscribed lytic lesion in the upper femoral neck on the right measuring up to 19 mm with SUV 7.3. A small amount of fracture was noted along the posterior upper border of the left greater trochanter. Abnormal increased activity was noted along the site of the previous suspected metastatic lesion in the left femoral neck with a maximum SUV 6.2, similar to the previous study. There were no other areas of significant abnormal activity identified. Given the PET/CT findings, he was then given palliative radiation to the right hip, completed on 09/28/2019 to a total dose of 3000 cGy. He tolerated the treatment well. In the meantime, a repeat brain MRI on 09/16/2019 again showed numerous bilateral multi lobar acute lacunar infarcts. The previously described areas of enhancement are felt to most likely be related to ischemia and not to metastatic disease. At that time there was felt to be no convincing evidence for metastatic disease. I had seen him for a follow-up visit on 03/2020. At that point he was beginning to show some recovery. I had discussed options for further treatment of the lung cancer. It was quite clear that he was not interested in attempting any chemotherapy. He did agree to continue anticoagulation with Lovenox, and ultimately he also agreed to a trial of immunotherapy. His other medical illnesses include hypertension, hyperlipidemia, type 2 diabetes, coronary artery disease, peripheral vascular disease, and degenerative arthritis. He underwent coronary artery bypass surgery in 1996 and he underwent an arterial bypass procedure to the right leg in 1999. In 2013 he was found to have significant hypoxemia. On evaluation he was found to have COPD and obstructive sleep apnea. 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 Also noted was calcific plaque at the origins of the common iliac arteries at 54% on the left and 60% on the right. He has a history of smoking 1-1 1/2 packs of cigarettes daily, but he quit smoking in 1996. INTERIM HISTORY: On 11/09/2019 he began a trial of immunotherapy with pembrolizumab as a single modality. He tolerated the initial infusion of pembrolizumab with no adverse effects, and he then continued treatment at 3-week intervals. As of 02/22/2020 he completed his 6th cycle. At his follow-up visit on 03/14/2020 he had developed a significant skin eruption on his trunk, mainly the back. With that finding, had stopped both the pembrolizumab and the denosumab, I also had him start prednisone, initially at 20 mg daily. The prednisone was later reduced to 10 mg daily, as the skin eruption was resolving. He was able to restart pembrolizumab on 03/28/2020. I opted to keep the denosumab on hold, as I felt it was the more likely cause for the eruption. He then continued his pembrolizumab infusions every 3 weeks. He completed his cycle 12 on 07/24/2020. He is seen for a follow-up visit. He has been feeling good generally. He has pretty good energy. His ECOG score is 1. He has good appetite. He has no fever or night sweats. He has some shortness of breath. He does not complain of cough, and he has not been having chest pain. He has no GI complaints. He has urinary frequency and some urgency. He has pain in his right thumb and in both knees. He also complains that his right knee has been tender to touch. He has just occasional headache. He has no focal neurologic symptoms. He says his memory is getting better. Medications: Acetaminophen Extra Strength 1 (500 mg) Tablet Oral b.i.d., amLODIPine Besylate 0.5 Tablet (of 5 mg) Oral at bedtime, B-12 1 Tablet (of 1000 mcg) Tablet Oral daily, Bisacodyl 1 Tablet (of 5 mg) Tablet, enteric coated Oral daily PRN, Carvedilol 1 (25 mg) Tablet Oral b.i.d., Cholecalciferol 1 Capsule (of 2000 Units) Oral daily, [employer] Mucus Extended Release 1 Tablet (of 600 mg) Tablet SR 12 HR Oral daily PRN, Donepezil HCl 1 Tablet (of 5 mg) Oral daily, Dulcolax Milk of Magnesia 30 mL (of 400 mg/5mL) Suspension Oral daily PRN, Enoxaparin Sodium 80 mg (of 300 mg/3mL) Injection b.i.d., Famotidine 1 Tablet (of 20 mg) Oral b.i.d. PRN, Fish Oil 1 (1200 mg) Capsule Oral daily, Flonase Suspension Nasal, Gabapentin 1 Tablet (of 300 mg) Oral daily, Hydrocodone-Acetaminophen 1 (5-325 mg) Tablet Oral four times a day PRN, Jardiance 0.5 Tablet (of 12.5 ) Oral daily, Lovastatin 1 Tablet (of 40 mg) Oral b.i.d., Meclizine HCl 1 Tablet (of 25 mg) Oral daily PRN, MetFORMIN HCl 1 Tablet (of 500 mg) Oral b.i.d., Plavix 1 (75 mg) Tablet Oral daily, predniSONE 1 Tablet (of 10 mg) Oral daily, Spiriva Respimat Aerosol, solution Inhalation, Tamsulosin HCl 1 (0.4 mg) Capsule Oral daily Allergies: PENICILLIN AND ALEVE Vital Signs: Performed on Aug 22, 2020 10:09 Height - 65.00 in Weight - 174.4 lbs (LOW) BSA - 1.87 sq.m BMI - 29.02 Temperature - 97.6 F (LOW) Pulse - 62 /min Respiration - 18 /min BP - 140/72 mm(hg) O2 Sat - 91 % (LOW) Pain - 0 Fatigue - 3 Physical Examination: Constitutional - He looks pretty good generally, Eyes - Sclerae nonicteric. Conjunctivae clear, ENMT - No lesions noted in the oral cavity, Hematologic/Lymphatic - No cervical, clavicular, or axillary adenopathy, Respiratory - Lungs sound clear with some decrease in air movement bilaterally, Cardiovascular - Heart rhythm is regular. There is no murmur, gallop, or rub noted, Abdomen - Soft. Liver and spleen are not enlarged. There is no abdominal mass or ascites noted and there is no inguinal adenopathy, Extremities - No edema, Integumentary - There is a mild skin eruption on the back, Neurologic - No focal neurologic deficits noted. Lab/Imaging: Test performed on Aug 22, 2020 08:55 Sodium 136 mmol/L TSH 2.74 uIU/mL Potassium 4.2 mmol/L Chloride 100 mmol/L Est Avg Glucose (eAG) 148 mg/dL CO2 26 mmol/L Anion Gap 14.2 BUN 19 mg/dL Creatinine 1.0 mg/dL Cr Clearance (Est) 68.12 mL/min Glucose 173 mg/dL Osmolality - Calculated 288 mOsm/kg Calcium 9.9 mg/dL Protein, Total 7.1 g/dL Albumin 4.4 g/dL Globulin 2.7 g/dL Bilirubin, Total 0.8 mg/dL ALT (SGPT) 14 U/L AST (SGOT) 13 U/L Alkaline Phosphatase 34 IU/L Hemoglobin A1C % 6.8 % WBC 5.3 10 3/uL RBC 5.72 10 6/uL HGB 17.9 g/dL HCT 53.2 % MCV 93.0 fL MCH 31.3 pg MCHC 33.6 g/dL RDW 13.2 % Platelet Count 180 10 3/cmm MPV 9.5 fL Neutrophils 3.30 10 3/uL Lymphocytes 1.2 10 3/uL Monocytes 0.5 10 3/uL Eosinophils 0.3 10 3/uL Basophils 0.0 10 3/uL Neutrophil % 62.0 % Lymphocyte % 21.6 % Monocyte % 9.2 % Eosinophil % 6.0 % Basophils % 0.8 % NRBC % 0 % Problem List: 1. Nonsmall cell cancer (low-grade adenocarcinoma) involving the upper lobe of the right lung, stage IB (T2a, N0, M0). He underwent right upper lobectomy with mediastinal lymph node biopsy on 04/29/2017. He had subsequent progression to stage IVB (M1c) with multiple sites of metastatic bone involvement. 2. A next generation sequencing study on his primary lung tumor showed low PD-L1 expression at 7%. The mutation burden was high. There were no actionable mutations identified. 3. 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 4. He has hereditary hemochromatosis. He was found to be doubly heterozygous for the C282Y and the H63D mutations. He has had a very good response to phlebotomy, with his subsequent ferritin levels maintained at less than 50 ng/mL compared to a pretreatment level of greater than 600. 5. He has underlying lung disease including COPD and obstructive sleep apnea, and he has associated chronic hypoxia. 6. Hypertension. 7. Hyperlipidemia. 8. Type II diabetes. 9. Coronary artery disease. 10. Peripheral arterial disease. 11. Degenerative arthritis. Problems Addressed with this Encounter and Plan: 1. Patient with nonsmall cell cancer (low-grade adenocarcinoma) involving the upper lobe of the right lung, stage IB (T2a, N0, M0). He underwent right upper lobectomy with mediastinal lymph node biopsy on 04/29/2017. He had subsequent progression to stage IVB (M1c) with multiple sites of metastatic bone involvement. A next generation sequencing study on his primary lung tumor showed low PD-L1 expression at 7%. The mutation burden was high. There were no actionable mutations identified. His restaging PET/CT on 03/10/2019 showed evidence of a single site of metastatic disease in the form of a lytic bone lesion in the left femoral neck. He underwent prophylactic ORIF of the left hip on 03/17/2019. Pathology confirmed metastatic adenocarcinoma. Following recovery from the surgery, he was seen by Dr. Boggs for palliative radiation. He completed treatment on 04/18/2019 to a total dose of 3900 cGy. A repeat PET/CT on 09/01/2019 showed a new small metastatic lesion in the right proximal femur. There was residual activity at the site of the metastatic lesion in the left femur. There were no other areas of abnormal activity noted on that study. He was then given palliative radiation to the right hip, completed on 09/28/2019 to a total dose of 3000 cGy. On 11/09/2019 he began a trial of immunotherapy with pembrolizumab. He tolerated the initial infusion of pembrolizumab with no adverse effects, and he then continued treatment at 3-week intervals. During that time he also began denosumab injections for the metastatic bone involvement. As of his follow-up visit on 03/14/2020 both the pembrolizumab and the denosumab were put on hold to development of skin eruption. The eruption gradually resolved on steroid therapy, and he was able to resume pembrolizumab on 03/28/2020. He was able to taper off prednisone, but with some persistent itching on his back, which he was able manage topically with CeraVe. He has otherwise tolerated treatment well. His restaging CT scans on 06/18/2020 showed no evidence of metastatic disease. At this point he appears stable clinically. He will continue with cycle 13 of pembrolizumab 200 mg by IV infusion. He will return for treatment in 3 weeks and for a follow-up visit in 6 weeks. In the meantime, he will be scheduled for restaging CT scans prior to that visit. 2. 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 He continues anticoagulation with Lovenox. 3. He recently has developed soreness and tenderness in the area of the right knee. As a precaution, I will check xrays of the femur and knee. He will have further evaluation as needed. Signed By: Shorty Chadwick M.D. <<Signature on File>>
== END 2020-08-22 08:20 | disposition home or self-care (01) ==
PROVIDERS: PCP Nurse Practitioner Family; Visit Provider Internal Medicine Medical Oncology
DX: C34.11 Malignant neoplasm of upper lobe, right bronchus or lung (principal); C79.51 Secondary malignant neoplasm of bone; I10 Essential (primary) hypertension; E78.5 Hyperlipidemia, unspecified; I25.10 Atherosclerotic heart disease of native coronary artery without angina pectoris; I73.9 Peripheral vascular disease, unspecified; M19.90 Unspecified osteoarthritis, unspecified site; E11.51 Type 2 diabetes mellitus with diabetic peripheral angiopathy without gangrene
CPT/HCPCS: 80053; 83036; 84443; 85025; 96413; 99214; J7050; J9271

== ENCOUNTER 2020-08-22 12:02 | Outpatient (CLI) | payer MEDICARE, SELFPAY ==
--- NOTE | 2020-08-22 12:14 | XR_ITS ---
WS: [id number] Right knee, 3 views, 08/22/2020 Clinical Data: PAIN Comparison: None. Findings: No fractures or dislocations are seen. The joint spaces are normal. The patella is tripartite. There are clips in the medial soft tissue of the distal right thigh and knee from vascular surgery. There a re calcifications in the wall of the superficial femoral artery, popliteal artery and its distal bran ches. XR/XR knee RT 3V* [id number] Impression: Negative right knee.
--- NOTE | 2020-08-22 12:14 | XR_ITS ---
WS: [id number] Right femur and thigh, AP and lateral views, 08/22/2020 Clinical Data: PAIN Comparison: None. Findings: No fractures or dislocations are seen. The soft tissues are normal. The visualized knee shows no abno rmalities. There are clips in the medial subcutaneous tissue of the right thigh probably from vascular surgery. There is a tripartite patella XR/XR femur RT min 2V* [id number] Impression: Negative right femur and thigh.
== END 2020-08-22 12:03 | disposition home or self-care (01) ==
PROVIDERS: PCP Nurse Practitioner Family; Visit Provider Internal Medicine Medical Oncology
DX: M25.561 Pain in right knee (principal)
CPT/HCPCS: 73552; 73562

== ENCOUNTER 2020-09-08 10:11 | Emergency (ER) | payer MEDICARE, SELFPAY ==
[2020-09-08] VITALS (7 sets, daily range): BP systolic 124–145; BP diastolic 65–75; PULSE 55–78; RESP 17–23; TEMP 36.1; O2SAT 88–98; BMI 28.6
--- NOTE | 2020-09-08 10:21 | ECG_ITS ---
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 Measurements Intervals [place] Rate: 61 P: 25 [place]: 175 QRS: 43 QRSD: 84 T: 76 QT: 381 QTc: 385 Interpretive Statements SINUS RHYTHM WITH SINUS ARRHYTHMIA NONSPECIFIC T-WAVE ABNORMALITY Compared to ECG 02/15/2020 12:15:41 T-wave abnormality now present Myocardial infarct finding no longer present Electronically Signed On 09-09-2020 20:32:09 CDT by Elena Garcia M.D. [id number]
--- NOTE | 2020-09-08 10:55 | ED_ITS ---
HPI - Dizziness General: Chief Complaint: Dizziness Stated Complaint: Dizziness Time Seen by Provider: 09/08/20 10:21 Source: patient Mode of arrival: ambulatory Limitations: no limitations History of Present Illness: MD elicited complaint: dizziness, vertigo and disequilibrium Pertinent past history: BPPV and stroke Onset (ago): hour(s) Timing: awoke with symptoms Severity: moderate Description: off-balance and difficulty walking History of similar symptoms: Yes Exacerbating factors: movement/ambulation and position/lying down Relieving factors: remaining still and medication Associated symptoms: Reports nausea; Denies chest pain, chills, ear pressure, headache(s), malaise, short of breath, tinnitus, vomiting or weakness Associated neuro symptoms: Deny confusion, difficulty speaking, diplopia, facial numbness, facial weakness, numbness in extremities or visual changes Review of Systems General: Reports: 10 or more systems reviewed and unremarkable except in HPI and below Const: Denies: fever(s), chills, body aches, change in appetite, fatigue, night sweats or diaphoresis Eyes: Denies: change in vision, blurry vision, blind spots or photophobia ENMT: Denies: tinnitus Card: Denies: chest pain Resp: Denies: dyspnea, productive cough, wheezing or pain on inspiration GI: Reports: nausea; Denies: vomiting : Denies: flank pain, difficulty urinating, dysuria or urinary frequency Musc: Denies: neck pain, back pain, extremity pain, extremity swelling or joint pain Skin/Breast: Denies: rash, pruritus or erythema Neuro: Reports: dizziness and vertigo; Denies: headache(s), numbness in extremities, weakness in extremities, frequent falls or Slurred speech present Endo: Denies: polyuria or polydipsia Eren/Lymph: Denies: easy bruising, easy bleeding or petechiae PFSH ED PFSH: Medical History (Updated 09/08/20 @ 12:13 by Lara Yo MD) Accelerated hypertension Allergic rhinitis Atherosclerosis of coronary artery of crow heart BPH (benign prostatic hyperplasia) Carotid artery disease 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 Chronic anticoagulation COPD (chronic obstructive pulmonary disease) Coronary artery disease DJD (degenerative joint disease) DVT (deep venous thrombosis) GERD (gastroesophageal reflux disease) Gout Hemochromatosis Hyperlipidemia Hypertension Lung cancer 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 Obstructive sleep apnea Peripheral arterial disease with history of revascularization Peripheral neuropathy Type 2 diabetes mellitus Surgical History History of left hip hemiarthroplasty Family History Mother Diabetes Social History Smoking and tobacco status: former smoker Alcohol intake: never Lives independently: Yes Household members: spouse History of recent travel: No Special jazlyn needs: No Physical Exam Const: COMMON NORMALS: no acute distress, patient oriented x3, no limitations, healthy appearing, alert and well nourished GENERAL APPEARANCE: cooperative, comfortable and well hydrated; not in distress, not anxious and not ill appearing HENMT: COMMON NORMALS: normocephalic and atraumatic HEAD & SCALP: norm ocephalic and atraumatic FACE & SINUS: normal facial exam and face symmetric TYMPANIC MEMBRANE: TM abnormal TM laterality: right and left Details: obstructed by cerumen MOUTH: Normal oral and palatal mucosa present Eye: COMMON NORMALS: Equal, round and reactive pupils present, EOMs intact bilaterally, conjunctivae normal and no scleral icterus ALIGNMENT: Yes align ment normal CONJUNCTIVA: Yes conjunctivae normal PUPIL: Yes Equal, round and reactive pupils present Neck/C-Spine: COMMON NORMALS: full ROM, no lymphadenopathy and supple GENERAL: Yes normal visual inspection Chest: COMMONS NORMALS: normal inspection of the chest Resp: COMMON NORMALS: normal respiratory effort, No use of accessory muscles and clear to auscultation bilaterally EFFORT & INSPECTION: Yes able to speak in complete sentences AUSCULTATION: clear to auscultation bilaterally Cardio: COMMON NORMALS: regular rate, regular rhythm, S1 normal heart sound present and S2 normal heart sound present RATE: regular rate RHYTHM: regular rhythm HEART SOUNDS: S1 normal heart sound present and S2 normal heart sound present GI: COMMON NORMALS: Normal to inspection, nondistended, normoactive bowel sounds present, Soft to palpation, non-tender and No hepatosplenomegaly present PALPATION: Yes Soft to palpation and Yes No hepatosplenomegaly present Extremity: COMMON NORMALS: normal to inspection, full ROM, capillary refill normal and no clubbing, cyanosis or edema Neuro: COMMON NORMALS: patient oriented x3, moves all extremities, no focal motor deficits, no sensory deficits noted and gait normal SENSORIUM/ORIENTA TION: Yes alert CRANIAL NERVES: Yes CN normal except as noted, Yes vestibular testing Vestibular testing: Yes Nystagmus present Nystagmus type: horizontal and within normal field of vision and Yes HiNTS Head impulse: abnormal Skew: normal COORDINATION/BALANCE: [id number] test normal, vgzv-[id number]-[id number] test normal and does not sway with eyes open SPEECH: speech normal GAIT: Yes Normal gait present SENSORY EXAM: Yes extremities MOTOR EXAM: 5/5 motor strength present throughout, Pronator motor function not present and no tremor noted COORDINATION: [id number]-pr-lscn test normal, ozhw-us-lupn test normal and does not sway with eyes open Course Vital Signs: Vital signs: Vital Signs Temperature 96.9 F L 09/08/20 10:13 Pulse Rate 61 09/08/20 13:06 Respiratory Rate 22 H 09/08/20 13:06 Blood Pressure 124/70 09/08/20 13:06 Pulse Oximetry 98 09/08/20 13:06 MDM - Dizziness MDM Narrative: Medical decision making narrative: 80-year-old male presenting with complaints of dizziness, nausea, vertigo and generalized weakness this morning when he woke up. He took 50 mg of meclizine, and his symptoms have resolved for the most part. He is already on maximum pharmacologic therapy for stroke prevention. 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 He is followed regularly by neurology, cardiology, and oncology. No acute abnormalities were noted on his baseline lab work. CT head was not done because symptoms had already resolved by the time he got here. HINT exam findings were reassuring for peripheral etiology, however given his history of recurrent strokes with almost identical symptoms, I think most likely he continues to have TIAs as a result of chronic microemboli. I recommended that he follow-up with his neurologist next week, continue taking all of his medications as scheduled. He can continue using meclizine as needed since it seems to help him. Differential Diagnosis: Dizziness Differential Diagnosis: Likely benign paroxysmal positional vertigo, orthostatic hypotension, vertebral basilar insufficiency, cerebrovascular accident, acute vestibular neuronitis and transient cerebral ischemia Medical Records: Attestation: I reviewed the patient's medical records. Lab Data: Attestation: I reviewed the patient's lab results. Labs: Lab Results 09/08/20 Range/Units 10:40 Sodium 137 (136-145) mmol/L Potassium 4.4 (3.5-5.1) mmol/L Chloride 100 (98-107) mmol/L Carbon Dioxide 26 (22-29) mmol/L Anion Gap 15.4 (5-19) BUN 18 (8-23) mg/dL Creatinine 0.9 (0.7-1.2) mg/dL GFR Calculation Not Reportable Glucose 146 H (65-115) mg/dL Calculated Osmolal ity 289 (285-295) mOsm/k g Calcium 9.5 (8.5-10.5) mg/dL Magnesium 2.1 (1.7-2.3) mg/dL Total Bilirubin 1.0 (0.15-1.2) mg/dL AST 14 (0-40) U/L ALT 16 (0-41) U/L Alkaline Phosphata se 38 L (40-130) IU/L Total Protein 7.5 (6.6-8.7) g/dL Albumin 4.4 (3.5-5.2) g/dL Globulin 3.1 (1.3-4.6) g/dL Discharge Plan Discharge Patient Disposition: Home Clinical Impression: Dizziness, COPD with hypoxia Condition: Stable Prescriptions: No Action hydrocodone-acetaminophen 5-325 mg tablet 1 tab PO PRN PRN (Reason: Pain) RF: 0 carvedilol 25 mg Tablet 25 mg PO BID@0800,1800 RF: 0 clopidogrel [Plavix] 75 mg Tablet 75 mg PO DAILY@0800 RF: 0 famotidine 20 mg Tablet 20 mg PO BID PRN (Reason: unknown) RF: 0 tamsulosin [Flomax] 0.4 mg Capsule 0.4 mg PO DAILY RF: 0 gabapentin 300 mg Capsule 300 mg PO BEDTIME@1800 RF: 0 allopurinol 300 mg Tablet 300 mg PO DAILY@0800 RF: 0 metformin 500 mg Tablet Extended Release 24 Hr 500 mg PO BID@0800,1800 RF: 0 vitamin R00-cqwrr acid 0.5-1 mg Tablet 1 tab PO DAILY@0800 RF: 0 cholecalciferol (vitamin D3) [Vitamin D3] 2,000 unit Tablet 2,000 unit PO DAILY@0800 RF: 0 omega 8-xru-gaa-fish oil [Fish Oil] 1,000 mg (120 mg-180 mg) Capsule 1 cap PO DAILY@0800 RF: 0 Jardiance 25 mg Tablet 12.5 mg PO DAILY@0800 RF: 0 meclizine 25 mg tablet 25 - 50 mg PO DAILY PRN (Reason: dizziness) RF: 0 donepezil 5 mg tablet 5 mg PO DAILY@0800 RF: 0 cetirizine 10 mg Tablet 5 mg PO DAILY PRN (Reason: Allergy Symptoms) RF: 0 amlodipine 5 mg tablet 2.5 mg PO DAILY@0800 RF: 0 Seroquel 25 mg tablet 25 mg PO BID@0800,1800 RF: 0 lovastatin 40 mg Tablet 40 mg PO BID@0800,1800 RF: 0 fluticasone propionate [Flonase Allergy Relief] 50 mcg/actuation [place],Suspension 2 spray INTRANASAL DAILY PRN (Reason: unknown) RF: 0 guaifenesin [Mucinex] 600 mg Tablet Extended Release 12hr 600 mg PO PRN PRN (Reason: Cold Symptoms) RF: 0 Spiriva Respimat 1.25 mcg/actuation Mist 2 puff INHALATION DAILY PRN (Reason: unknown) RF: 0 docusate sodium 100 mg capsule 100 mg PO DAILY PRN (Reason: Constipation) RF: 0 enoxaparin [Lovenox] 80 mg/0.8 mL Syringe 80 mg SUBCUT Q12H 30 Days Qty: 48 RF: 0 Discharge Orders: Discharge ED (Routine); Ordered 09/08/20 Ordered By: Lara Yo Other Ambulatory Orders: DME: Oxygen (Order) Location: None Selected Ordered By: Lara Yo DME: Oxygen (Order) Location: None Selected Ordered By: Lara Yo Referrals: Aislinn Beebe, NUCLEAR SECURITY OFFICER [Primary Care Provider] - Discharge Diet: Advance as tolerated Discharge Activity: Resume usual activity and Increase activity as tolerated Patient Instructions: Using Oxygen at Home (ED), Lightheadedness (ED), Opioid Safety Activity Restrictions/Additional Instructions: Call your neurologist, Dr. Hilton, first thing on Thursday morning to schedule a follow-up appointment. Also schedule a follow-up appointment with your primary care doctor within the next 2 to 3 days. You can continue taking meclizine if it relieves your dizziness. If you start having increased dizziness and nausea, vision changes, difficulty with balance, and it does not improve at all with meclizine, return immediately to the ER. Coding Level of Care Code ED Cycle Consultant for Chg Fwd Exam Expanded Problem Focused
[2020-09-08 11:23] LABS: Alanine Aminotransferase 16 U/L (0-41); Albumin Level 4.4 g/dL (3.5-5.2); Alkaline Phosphatase 38 IU/L (40-130); Anion Gap 15.4 (5-19); Aspartate Amino Transferase 14 U/L (0-40); Blood Urea Nitrogen 18 mg/dL (8-23); Calcium 9.5 mg/dL (8.5-10.5); Carbon Dioxide 26 mmol/L (22-29); Chloride 100 mmol/L (98-107); Globulin 3.1 g/dL (1.3-4.6); Glucose 146 mg/dL (65-115); Magnesium 2.1 mg/dL (1.7-2.3); Osmolality Calculated 289 mOsm/kg (285-295); Potassium 4.4 mmol/L (3.5-5.1); Sodium 137 mmol/L (136-145); Total Protein 7.5 g/dL (6.6-8.7)
== END 2020-09-08 13:36 | disposition home or self-care (01) ==
PROVIDERS: Emergency Provider Family Medicine; PCP Nurse Practitioner Family
DX: R42 Dizziness and giddiness (principal); J44.9 Chronic obstructive pulmonary disease, unspecified; R09.02 Hypoxemia; Z79.02 Long term (current) use of antithrombotics/antiplatelets; Z79.84 Long term (current) use of oral hypoglycemic drugs; I25.10 Atherosclerotic heart disease of native coronary artery without angina pectoris; E78.5 Hyperlipidemia, unspecified; I10 Essential (primary) hypertension; Z85.118 Personal history of other malignant neoplasm of bronchus and lung; E11.42 Type 2 diabetes mellitus with diabetic polyneuropathy; Z87.891 Personal history of nicotine dependence
CPT/HCPCS: 80048; 80053; 83735; 93005; 99284

== ENCOUNTER 2020-09-13 09:59 | Outpatient (CLI) | payer MEDICARE, SELFPAY | END 2020-09-13 10:00 | disposition home or self-care (01) | PROVIDERS: PCP Nurse Practitioner Family; Visit Provider Nurse Practitioner | DX: Z51.12 Encounter for antineoplastic immunotherapy (principal); C34.11 Malignant neoplasm of upper lobe, right bronchus or lung; C79.51 Secondary malignant neoplasm of bone | CPT/HCPCS: 96413; J7050; J9271 ==

== ENCOUNTER 2020-10-02 11:44 | Outpatient (CLI) | payer MEDICARE, SELFPAY ==
--- NOTE | 2020-10-02 11:59 | CT_ITS ---
WS: [id number] CT CHEST, ABDOMEN, AND PELVIS TECHNIQUE: Contrast-enhanced CT of the chest, abdomen, and pelvis with coronal and sagittal reformatt ed images. CLINICAL INFORMATION: LUNG CANCER COMPARISON: June 18, 2020 DLP: All CT scans at [facility] use at least one of these dose optimization techniques: automat ed exposure control; mA and/or kV adjustment per patient size (includes targeted exams where dose is matched to clinical indication); or iterative reconstruction. CT CHEST: Mild chronic emphysematous change. No suspicious pulmonary opacities. Prior right thoracotomy. Sterno sadaf with CABG. No mediastinal or hilar lymphadenopathy. No axillary lymphadenopathy. CT ABDOMEN AND PELVIS: Mild diffuse fatty infiltration the liver. Numerous hepatic cysts are stable in appearance. Cholelith iasis. No gallbladder wall thickening. Normal splenic and pancreatic parenchymal enhancement. Normal abdominal aorta. Portal vein and splenic vein are normal. Adrenal glands are normal. Normal renal parenchymal enhancement. No hydronephrosis. No lymphadenopath y abdomen or pelvis. No evidence of small or large bowel obstruction. Sigmoid diverticulosis. No evidence of acute diverticulitis. Fat-containing right inguinal hernia. In tramedullary marco a and screw fixation left proximal femur. CT/CT chest abd pel w con* IMPRESSION: 1. No evidence of progressed disease in the chest abdomen or pelvis. 2. No adenopathy in the chest abdomen or pelvis. 3. Numerous hepatic cysts are similar in appearance. 4. Cholelithiasis. 5. No significant changes from previous.
[2020-10-02] MEDS: iohexol 300 mg/mL 100 mL Btl IV (14:06)
[2020-10-02] MEDS: iohexol 300 mg/mL 50 mL Btl PO (14:07)
== END 2020-10-02 11:45 | disposition home or self-care (01) ==
LOC: RADWPI 11:52
PROVIDERS: PCP Nurse Practitioner Family; Visit Provider Internal Medicine Medical Oncology
DX: C34.11 Malignant neoplasm of upper lobe, right bronchus or lung (principal); K80.20 Calculus of gallbladder without cholecystitis without obstruction; K76.89 Other specified diseases of liver
CPT/HCPCS: 71260; 74177; Q9967

== ENCOUNTER 2020-10-04 08:40 | Outpatient (CLI) | payer MEDICARE, SELFPAY ==
[2020-10-04 09:42] LABS: Basophils # 0.1 10^3/uL (0.0-0.1); Basophils % 1.1 %; Eosinophils # 0.2 10^3/uL (0.0-0.8); Eosinophils % 4.2 %; Hematocrit 54.3 % (42.0-52.0); Hemoglobin 18.5 g/dL (11.7-16.6); Lymphocytes # 0.9 10^3/uL (0.8-4.8); Lymphocytes % 16.8 %; Mean Corpuscular HGB Conc 34.1 g/dL (30.0-36.0); Mean Corpuscular Hemoglobin 31.7 pg (28.0-34.0); Mean Platelet Volume 9.8 fL (7.4-10.4); Monocytes # 0.6 10^3/uL (0.2-0.9); Monocytes % 10.6 %; Neutrophils # 3.66 10^3/uL (1.8-7.7); Neutrophils % 67.1 %; Nucleated Red Blood Cells % 0 %; Platelet Count 183 10^3/cmm (130-400); Red Blood Count 5.84 10^6/uL (4.1-5.3); Red Cell Distribution Width 13.6 % (12.1-15.1); White Blood Count 5.5 10^3/uL (4.0-10.0)
[2020-10-04 09:54] LABS: Alanine Aminotransferase 19 U/L (0-41); Albumin Level 4.4 g/dL (3.5-5.2); Alkaline Phosphatase 41 IU/L (40-130); Anion Gap 14.6 (5-19); Aspartate Amino Transferase 17 U/L (0-40); Blood Urea Nitrogen 24 mg/dL (8-23); Calcium 9.2 mg/dL (8.5-10.5); Carbon Dioxide 28 mmol/L (22-29); Chloride 99 mmol/L (98-107); Globulin 2.6 g/dL (1.3-4.6); Glucose 187 mg/dL (65-115); Osmolality Calculated 293 mOsm/kg (285-295); Potassium 4.6 mmol/L (3.5-5.1); Sodium 137 mmol/L (136-145); Thyroid Stimulating Hormone 4.52 uIU/mL (0.27-4.20)
--- NOTE | 2020-10-18 00:31 | ONC FU_ITS ---
Manjinder Pimentel Patient Note Patient: Lynnette Sevilla Unit #: [id number]: 1940 Dictated By: Brian LovellDate of Visit: Oct 04, 2020 Onc MED Follow-Up/Prog Note Chief Complaint: Hemochromatosis/lung cancer. 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 His disease was stage IB (T2a, N0, M0) at initial diagnosis, but with subsequent progression to stage TIGIST (M1b). He also has hereditary hemochromatosis. In February [address] Tyler with persistent cough. His evaluation included chest CT on 03/04/2017. It showed a spiculated density in the medial aspect of the anterior segment of the right upper lobe. It measured 1.8 x 2.4 x 1.8 cm and it was new compared to a previous study from November 2013. There was no associated mediastinal or hilar adenopathy, and there was no evidence of liver or adrenal metastases. He underwent bronchoscopy on 04/06/2017. There were no endobronchial lesions identified. The lesion was found to be avid by PET/CT. There was no evidence of metastatic involvement. He underwent right upper lobectomy with mediastinal lymph node biopsy on 04/29/2017. Pathology showed low-grade (grade 1-2) adenocarcinoma measuring 3.2 x 2.4 cm. There was penetration into visceral pleura and there was evidence of lymphovascular space invasion. The margins of resection were free, and there was no involvement in 1 mediastinal lymph node, in 1 lymph node at the right mainstem bronchus, and in 2 hilar lymph nodes. He has continued on observation/expectant management following the surgery, as there appeared to be no indication for adjuvant chemotherapy. Dr Chadwick had initially seen him in October 2012 in regard to elevated hemoglobin/hematocrit levels and elevated serum iron. His evaluation at that time showed his hemoglobin elevated at 18.1 g with hematocrit 52%. White count and platelet count were normal. The serum iron was in the upper normal range at 145 mcg/dL with transferrin saturation 30.8%. The serum ferritin, though, was elevated at 606 ng/mL. He had additional evaluation including an erythropoietin level which was in the normal range at 12 mIU/mL. A MICHAEL 2 gene mutation study was negative. The HFE gene analysis showed double heterozygosity for the C282Y and the H63D mutations, consistent with hereditary hemochromatosis. He has been managed on a phlebotomy program. Surveillance chest CT on 12/07/2018 showed stable postoperative changes from prior right upper lobectomy. There was long-term stability of left upper lower lobe nodules. There was chronic emphysema. There was no evidence for recurrent or metastatic neoplastic process. He continued observation/expectant management for the lung cancer. He had then presented to Dr. Tyler's office with swelling and redness in the left arm, in the area of the antecubital fossa. Venous Doppler of the left arm on 02/11/2019 showed extensive occlusive thrombus in the left basilic vein. All other veins of the left upper extremity appeared free of thrombus. He was started on anticoagulation with apixaban. He was seen here for follow-up on 02/25/2019. He then had a restaging PET/CT on 03/10/2019. It showed interval development of abnormal activity in a lytic lesion in the left femoral neck, suspicious for metastatic disease. There was interval resolution of the small right upper lobe lung mass. There were no other areas of abnormal uptake on that study. With those findings, he was referred to Dr. Chin. On 03/17/2019 he underwent prophylactic open reduction with interval fixation of the left hip. Pathology on the bone fragments did confirm metastatic carcinoma consistent with the previous diagnosis of pulmonary infiltrating adenocarcinoma. Following recovery from the surgery he was seen by Dr. Boggs for palliative radiation. He completed treatment on 04/18/2019 to a total dose of 3900 cGy. He tolerated the treatment well. In the meantime, Dr Chadwick had also requested a next generation sequencing study. It was performed on the original lung tumor, as the specimen from the left femur was insufficient for analysis. That study showed low PD-L1 expression at 7%. The mutation burden, though, was high. The tumor was negative for EGFR, BRAF, and KRAS mutations, and it also tested negative for the ALK and ROS1 rearrangements. The NTRK fusion also was not detected. Dr Chadwick had seen him for a follow-up visit on 05/02/2019. He had restaging CT scans on 06/01/2019 showed no evidence for recurrent disease in the chest, abdomen, or pelvis. In the setting of a treated, solitary metastasis, he was recommended to continue on observation/expectant management. On 06/28/2019 he was seen in the emergency room with complaints of dizziness. CT of the head with and without contrast showed no acute findings. He was diagnosed with vestibular neuronitis. On 07/04/2019 he was admitted to the hospital after returning to the emergency room with acute mental status changes. His repeat head CT showed a 10 mm focal area of low-attenuation in the left frontal lobe which appeared new from the recent study. Was felt to possibly represent a subacute infarct. Further evaluation with brain MRI showed multifocal patchy areas of acute ischemia involving the YUNG territories bilaterally. The largest area of ischemia measured approximately 1 cm. There was no evidence of mass-effect or midline shift. The clinical presentation appeared most consistent with cancer related hypercoagulability. As it occurred while on a therapeutic dose of apixaban, his anticoagulation was transitioned to therapeutic Lovenox. His echocardiogram showed normal left ventricular cavity size and systolic function with estimated ejection fraction at 60%. There were no significant valvular abnormalities noted. There appeared to be no significant change compared to her previous study from July 2018. His bilateral carotid Doppler studies showed just moderate atheromatous plaque bilaterally. Head MRA showed no evidence of high-grade proximal stenosis or aneurysm. He was discharged to [facility] for rehab. At that point, he was still having significant expressive aphasia, but his confusion had improved significantly. He subsequently was able to return home. Restaging CT scans of the chest, abdomen, and pelvis on 07/25/2019 showed stable 5 mm noncalcified pulmonary nodule in the left upper lobe and a 3 mm noncalcified nodule in the left lower lobe. There was no mediastinal or hilar adenopathy. A few scattered hypodensities throughout the liver are too small to characterize but similar to prior studies. A new 7 mm hypodensity was noted in the lower pole of the right kidney. There was increased density within the lumen of a contracted gallbladder, suspicious for stones and/or chronic cholecystitis. There was no osteoblastic or osteolytic bone disease identified. On 08/03/2019 he was seen in the emergency room with dizziness. He has repeat noncontrast head CT showed atrophy and chronic deep white matter ischemic change with no acute intracranial abnormality identified. He was diagnosed with vertigo and treated with meclizine. Dr Chadwick had seen him for a follow-up visit on 08/08/2019. He had opted to stop the Lovenox injections, and he had restarted anticoagulation with apixaban. He also was taking Plavix. He was still having some difficulty with his speech and he was having some confusion at times and some difficulty with memory. Subsequent to that visit, his had called and reported that his memory and confusion were continuing to worsen. A repeat brain MRI on 08/23/2019 showed multifocal areas of abnormal diffusion abnormalities and flair signal abnormalities. It was noted to predominantly involve the left hippocampal formation with additional more focal diffusion signal abnormalities extending towards the temporal occipital junction posteriorly. That finding appeared to be most consistent with worsening subacute infarcts. Also noted, though, were additional cortical areas of very subtle enhancement throughout the brain which were suspicious for metastatic lesions. The most concerning were in the left frontal vertex. With those findings, Dr Chadwick was able to get his anticoagulation transition back to Lovenox. A repeat PET/CT on 09/01/2019 showed interval development of a small well-circumscribed lytic lesion in the upper femoral neck on the right measuring up to 19 mm with SUV 7.3. A small amount of fracture was noted along the posterior upper border of the left greater trochanter. Abnormal increased activity was noted along the site of the previous suspected metastatic lesion in the left femoral neck with a maximum SUV 6.2, similar to the previous study. There were no other areas of significant abnormal activity identified. Given the PET/CT findings, he was then given palliative radiation to the right hip, completed on 09/28/2019 to a total dose of 3000 cGy. He tolerated the treatment well. In the meantime, a repeat brain MRI on 09/16/2019 again showed numerous bilateral multi lobar acute lacunar infarcts. The previously described areas of enhancement are felt to most likely be related to ischemia and not to metastatic disease. At that time there was felt to be no convincing evidence for metastatic disease. Dr Chadwick had seen him for a follow-up visit on 03/2020. At that point he was beginning to show some recovery. Dr Chadwick had discussed options for further treatment of the lung cancer. It was quite clear that he was not interested in attempting any chemotherapy. He did agree to continue anticoagulation with Lovenox, and ultimately he also agreed to a trial of immunotherapy. His other medical illnesses include hypertension, hyperlipidemia, type 2 diabetes, coronary artery disease, peripheral vascular disease, and degenerative arthritis. He underwent coronary artery bypass surgery in 1996 and he underwent an arterial bypass procedure to the right leg in 1999. In 2013 he was found to have significant hypoxemia. On evaluation he was found to have COPD and obstructive sleep apnea. 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 Also noted was calcific plaque at the origins of the common iliac arteries at 54% on the left and 60% on the right. He has a history of smoking 1-1 1/2 packs of cigarettes daily, but he quit smoking in 1996. INTERIM HISTORY: On 11/09/2019 he began a trial of immunotherapy with pembrolizumab as a single modality. He tolerated the initial infusion of pembrolizumab with no adverse effects, and he then continued treatment at 3-week intervals. As of 02/22/2020 he completed his 6th cycle. At his follow-up visit on 03/14/2020 he had developed a significant skin eruption on his trunk, mainly the back. With that finding, had stopped both the pembrolizumab and the denosumab, Dr Chadwick also had him start prednisone, initially at 20 mg daily. The prednisone was later reduced to 10 mg daily, as the skin eruption was resolving. He was able to restart pembrolizumab on 03/28/2020. It was opted to keep the denosumab on hold, as it was felt it was the more likely cause for the eruption. He then continued his pembrolizumab infusions every 3 weeks. He completed his cycle 14 on 09/13/2020. Mr. Sevilla is here today for follow-up. He is doing well overall. 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 He has no new concerns. He denies any new shortness of breath orthopnea. He denies any fever or chills. He states his energy is good. His appetite is good. He denies any cough or hemoptysis. He denies nausea or vomiting. He denies any bowel or bladder changes. He states he has some slow urine at times but that has been normal for him. He states overall he feels really good. He feels he is tolerating the pembrolizumab well. His ECOG is 0. Mr. Sevilla had follow-up CT of the chest abdomen pelvis with contrast on 10/02/2020. The impression reported no evidence of progressive disease in the chest, abdomen or pelvis. There is no adenopathy in the chest, abdomen or pelvis. Numerous hepatic cysts are similar in appearance; cholelithiasis. No significant changes from previous CT compared on June 18, 2020. Past Medical History: Coronary artery disease Deep vein thrombosis Degenerative arthritis Hyperlipidemia Hypertension Peripheral vascular disease Type II diabetes His medical illnesses include hypertension, hyperlipidemia, type 2 diabetes, coronary artery disease, peripheral vascular disease, and degenerative arthritis. Past Surgical History: Heart by-pass - quadruple bypass Covid vaccine #2???Moderna in 2020 Flu [facility] 2019 Left femoral neck biopsy in 2018 Open reduction internal fixation Left hip-Dr Chin in 2019 Right upper lobectomy with mediastinal lymph node biopsy-Dr Rivers in 2016 He underwent coronary artery bypass surgery in 1996 and an arterial bypass procedure to the right leg in 1999. His only other surgery was an appendectomy in 1955. Allergies: PENICILLIN AND ALEVE Medications: Acetaminophen Extra Strength 1 (500 mg) Tablet Oral b.i.d. amLODIPine Besylate 0.5 Tablet (of 5 mg) Oral at bedtime B-12 1 Tablet (of 1000 mcg) Tablet Oral daily Bisacodyl 1 Tablet (of 5 mg) Tablet, enteric coated Oral daily PRN Carvedilol 1 (25 mg) Tablet Oral b.i.d. Cholecalciferol 1 Capsule (of 2000 Units) Oral daily Dulcolax Milk of Magnesia 30 mL (of 400 mg/5mL) Suspension Oral daily PRN Enoxaparin Sodium 80 mg (of 300 mg/3mL) Injection b.i.d. Famotidine 1 Tablet (of 20 mg) Oral b.i.d. PRN Fish Oil 1 (1200 mg) Capsule Oral daily Flonase Suspension Nasal Gabapentin 1 Tablet (of 300 mg) Oral daily Hydrocodone-Acetaminophen 1 (5-325 mg) Tablet Oral four times a day PRN Jardiance 0.5 Tablet (of 12.5 ) Oral daily Lovastatin 1 Tablet (of 40 mg) Oral b.i.d. Meclizine HCl 1 Tablet (of 25 mg) Oral daily PRN MetFORMIN HCl 1 Tablet (of 500 mg) Oral b.i.d. Plavix 1 (75 mg) Tablet Oral daily Spiriva Respimat Aerosol, solution Inhalation Tamsulosin HCl 1 (0.4 mg) Capsule Oral daily Family History: His father following stomach surgery at age 66. His mother had diabetes and with kidney thought here at age 74. A half-brother had alcoholic cirrhosis and as a result of an injury. A sister of leukemia at age 6. 3 other sisters and one brother are still living and in good health. Social History: Mr. Sevilla is and he is retired. Mr. Sevilla quit smoking 17 years ago but had smoked 1.5 packs/day for 23 years. He quit drinking 11 years ago. He has indicated exposure to the following products: cigarettes. Mr. Sevilla reports the following support systems: lives with spouse, significant other, family, or friends, lives in own house, supportive family/friends willing to assist with needs, and adequate transportation available for expected visits. His diet consists of regular meals. He indicates his activity level as: daily activities. He is retired. He had previously smoked up to a pack and a half of cigarettes daily. He quit in 1996. He has had social alcohol use in the past. He has had no alcohol use for at least 10 years or more. Review Of Symptoms: see above Vital Signs: Performed on Oct 04, 2020 09:41 Height - 65.00 in Weight - 173 lbs (LOW) BSA - 1.86 sq.m BMI - 28.79 Temperature - 98.4 F Pulse - 65 /min Respiration - 17 /min BP - 134/68 mm(hg) O2 Sat - 99 % Pain - 0 Fatigue - 7,0 - Fully active, able to carry on all predisease activities without restrictions. (ECOG) Physical Examination: Constitutional Alert, oriented, no acute distress. Skin pink, warm and dry. Head Normocephalic; atraumatic. Eyes Conjunctivae and sclerae are clear and without icterus. Pupils are reactive and equal. Neck Supple without masses or thyromegaly. No jugular venous distension. Hematologic/Lymphatic No petechiae or purpura. No tender or palpable lymph nodes in the cervical or supraclavicular areas. Respiratory Lungs are clear to auscultation without rhonchi or wheezing. Cardiovascular Regular rate and rhythm of heart without murmurs,clicks, gallops or rubs. Abdomen Non-tender, non-distended, no masses, ascites. Good bowel sounds noted in all quads. No guarding or rebound tenderness. No pulsatile masses. Scattered bruising and mild redness at injection sites from Lovenox. No exudate. Back/Spine Non-tender to palpation. Extremities No visible deformities, no cyanosis, clubbing or edema. Musculoskeletal No tenderness or swelling, normal range of motion without obvious weakness. Integumentary No rashes or lesions. Neurologic No sensory or motor deficits, normal cerebellar function, normal gait. Psychiatric Alert and oriented times three. Coherent speech. Verbalizes understanding of our discussions today. Laboratory:Test performed on Oct 04, 2020 09:10 Sodium 137 mmol/L TSH 4.52 uIU/mL Potassium 4.6 mmol/L Chloride 99 mmol/L CO2 28 mmol/L Anion Gap 14.6 BUN 24 mg/dL Creatinine 1.0 mg/dL Cr Clearance (Est) 67.5700 mL/min Glucose 187 mg/dL Osmolality - Calculated 293 mOsm/kg Calcium 9.2 mg/dL Protein, Total 7.0 g/dL Albumin 4.4 g/dL Globulin 2.6 g/dL Bilirubin, Total 1.0 mg/dL ALT (SGPT) 19 U/L AST (SGOT) 17 U/L Alkaline Phosphatase 41 IU/L WBC 5.5 10 3/uL RBC 5.84 10 6/uL HGB 18.5 g/dL HCT 54.3 % MCV 93.0 fL MCH 31.7 pg MCHC 34.1 g/dL RDW 13.6 % Platelet Count 183 10 3/cmm MPV 9.8 fL Neutrophils 3.66 10 3/uL Lymphocytes 0.9 10 3/uL Monocytes 0.6 10 3/uL Eosinophils 0.2 10 3/uL Basophils 0.1 10 3/uL Neutrophil % 67.1 % Lymphocyte % 16.8 % Monocyte % 10.6 % Eosinophil % 4.2 % Basophils % 1.1 % NRBC % 0 % Test performed on Aug 22, 2020 08:55 Est Avg Glucose (eAG) 148 mg/dL Hemoglobin A1C % 6.8 % Impression: 1. Nonsmall cell cancer (low-grade adenocarcinoma) involving the upper lobe of the right lung, stage IB (T2a, N0, M0). He underwent right upper lobectomy with mediastinal lymph node biopsy on 04/29/2017. He had subsequent progression to stage IVB (M1c) with multiple sites of metastatic bone involvement. 2. A next generation sequencing study on his primary lung tumor showed low PD-L1 expression at 7%. The mutation burden was high. There were no actionable mutations identified. 3. 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 4. He has hereditary hemochromatosis. He was found to be doubly heterozygous for the C282Y and the H63D mutations. He has had a very good response to phlebotomy, with his subsequent ferritin levels maintained at less than 50 ng/mL compared to a pretreatment level of greater than 600. 5. He has underlying lung disease including COPD and obstructive sleep apnea, and he has associated chronic hypoxia. 6. Hypertension. 7. Hyperlipidemia. 8. Type II diabetes. 9. Coronary artery disease. 10. Peripheral arterial disease. 11. Degenerative arthritis. Plan: 1. Patient with nonsmall cell cancer (low-grade adenocarcinoma) involving the upper lobe of the right lung, stage IB (T2a, N0, M0). He underwent right upper lobectomy with mediastinal lymph node biopsy on 04/29/2017. He had subsequent progression to stage IVB (M1c) with multiple sites of metastatic bone involvement. A next generation sequencing study on his primary lung tumor showed low PD-L1 expression at 7%. The mutation burden was high. There were no actionable mutations identified. His restaging PET/CT on 03/10/2019 showed evidence of a single site of metastatic disease in the form of a lytic bone lesion in the left femoral neck. He underwent prophylactic ORIF of the left hip on 03/17/2019. Pathology confirmed metastatic adenocarcinoma. Following recovery from the surgery, he was seen by Dr. Boggs for palliative radiation. He completed treatment on 04/18/2019 to a total dose of 3900 cGy. A repeat PET/CT on 09/01/2019 showed a new small metastatic lesion in the right proximal femur. There was residual activity at the site of the metastatic lesion in the left femur. There were no other areas of abnormal activity noted on that study. He was then given palliative radiation to the right hip, completed on 09/28/2019 to a total dose of 3000 cGy. On 11/09/2019 he began a trial of immunotherapy with pembrolizumab. He tolerated the initial infusion of pembrolizumab with no adverse effects, and he then continued treatment at 3-week intervals. During that time he also began denosumab injections for the metastatic bone involvement. As of his follow-up visit on 03/14/2020 both the pembrolizumab and the denosumab were put on hold to development of skin eruption. The eruption gradually resolved on steroid therapy, and he was able to resume pembrolizumab on 03/28/2020. He was able to taper off prednisone, but with some persistent itching on his back, which he was able manage topically with CeraVe. He has otherwise tolerated treatment well. His restaging CT scans on 06/18/2020 showed no evidence of metastatic disease. Follow-up CT scan of the chest, abdomen and pelvis with contrast from October 02, 2020 reported no evidence of progressive disease or adenopathy in the chest, abdomen or pelvis. There were numerous hepatic cysts which were similar in appearance to the CT from May 2020. It is noted that he had cholelithiasis but no significant changes from the May 2020 CTs. There is no gallbladder wall thickening. This portal vein and splenic vein were normal. There is been no evidence of disease progression and he is clinically stable. A. Proceed with cycle 15 pembrolizumab. He remains at 3-week dosing. B. Labs from today were reviewed in detail and discussed with Mr. Sevilla and a copy was given to him. WBC 5.5, hemoglobin 18.5 hematocrit 54.3, platelets 183,000. Potassium 4.6, random glucose 187, creatinine 1.0 LFTs are normal. His TSH is 4.52. He is asymptomatic. 2. 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 A. He continues anticoagulation with Lovenox. 3. Hemochromatosis???doubly heterozygous for C282Y and H63D mutations. A. His current hemoglobin is 54.3. Iron studies will be checked and we will plan to keep his hematocrit less than 55. 4. Bone metastasis???multiple sites. A. He is not currently on denosumab given that he had a significant rash with the first administration. 5. Follow-up plan A. Mr. Sevilla will continue with 3-week Keytruda. We have discussed 6-week treated but he likes and tolerates a 3-week dosing well. B. He will return in 6 weeks for follow-up with CBC, CMP, TSH, ferritin and iron studies if they are not obtained today. C. Mr. Sevilla was instructed to contact us in the interim should questions or problems arise. Total time spent in regards to this patient's care today in review of his medical records prior to the visit, discussion of his labs with Dr. Chadwick and formulating a plan for following his hematocrit as well as his hemochromatosis in addition to his lung cancer; discussion the plan of care and side effect of medication management as well as reviewing labs with . Mr. Sevilla and post visit documentation was 50 minutes. Signed By: Brian Lovell-, AOCNP Shorty Chadwick MD <<Signature on File>>
== END 2020-10-04 08:41 | disposition home or self-care (01) ==
PROVIDERS: PCP Nurse Practitioner Family; Visit Provider Nurse Practitioner
DX: Z51.12 Encounter for antineoplastic immunotherapy (principal); C34.11 Malignant neoplasm of upper lobe, right bronchus or lung; C79.51 Secondary malignant neoplasm of bone; I82.509 Chronic embolism and thrombosis of unspecified deep veins of unspecified lower extremity; I63.9 Cerebral infarction, unspecified; E83.110 Hereditary hemochromatosis; J44.9 Chronic obstructive pulmonary disease, unspecified; G47.33 Obstructive sleep apnea (adult) (pediatric); R09.02 Hypoxemia; I10 Essential (primary) hypertension; E78.5 Hyperlipidemia, unspecified; E11.59 Type 2 diabetes mellitus with other circulatory complications; I25.10 Atherosclerotic heart disease of native coronary artery without angina pectoris; I73.9 Peripheral vascular disease, unspecified; M47.9 Spondylosis, unspecified; Z79.899 Other long term (current) drug therapy
CPT/HCPCS: 80053; 84443; 85025; 96413; 99215; J7050; J9271

== ENCOUNTER 2020-10-25 10:16 | Outpatient (CLI) | payer MEDICARE, SELFPAY | END 2020-10-25 10:17 | disposition home or self-care (01) | LOC: ONCMED 10:17 | PROVIDERS: PCP Nurse Practitioner Family; Visit Provider Nurse Practitioner | DX: Z51.11 Encounter for antineoplastic chemotherapy (principal); C34.11 Malignant neoplasm of upper lobe, right bronchus or lung; C79.51 Secondary malignant neoplasm of bone; E83.110 Hereditary hemochromatosis | CPT/HCPCS: 96413 ==

== ENCOUNTER 2020-11-15 08:45 | Outpatient (CLI) | payer MEDICARE, SELFPAY ==
[2020-11-15 09:23] LABS: Basophils # 0.1 10^3/uL (0.0-0.1); Basophils % 1.1 %; Eosinophils # 0.5 10^3/uL (0.0-0.8); Eosinophils % 8.6 %; Hematocrit 50.9 % (42.0-52.0); Hemoglobin 17.7 g/dL (11.7-16.6); Lymphocytes # 0.9 10^3/uL (0.8-4.8); Mean Corpuscular HGB Conc 34.8 g/dL (30.0-36.0); Mean Corpuscular Hemoglobin 31.5 pg (28.0-34.0); Mean Corpuscular Volume 90.6 fL (80-94); Mean Platelet Volume 9.8 fL (7.4-10.4); Monocytes # 0.5 10^3/uL (0.2-0.9); Monocytes % 9.5 %; Neutrophils # 3.39 10^3/uL (1.8-7.7); Neutrophils % 63.4 %; Nucleated Red Blood Cells % 0 %; Platelet Count 188 10^3/cmm (130-400); Red Blood Count 5.62 10^6/uL (4.1-5.3); Red Cell Distribution Width 13.3 % (12.1-15.1); White Blood Count 5.4 10^3/uL (4.0-10.0)
[2020-11-15 10:02] LABS: Alanine Aminotransferase 11 U/L (0-41); Albumin Level 4.3 g/dL (3.5-5.2); Alkaline Phosphatase 37 IU/L (40-130); Anion Gap 15.4 (5-19); Aspartate Amino Transferase 11 U/L (0-40); Blood Urea Nitrogen 31 mg/dL (8-23); Calcium 9.5 mg/dL (8.5-10.5); Carbon Dioxide 25 mmol/L (22-29); Chloride 100 mmol/L (98-107); Globulin 2.7 g/dL (1.3-4.6); Glucose 288 mg/dL (65-115); Osmolality Calculated 299 mOsm/kg (285-295); Potassium 4.4 mmol/L (3.5-5.1); Sodium 136 mmol/L (136-145); Thyroid Stimulating Hormone 3.24 uIU/mL (0.27-4.20); Total Bilirubin 0.7 mg/dL (0.15-1.2)
--- NOTE | 2020-11-15 15:33 | ONC FU_ITS ---
Dr. Chadwick Patient Follow-Up Note Patient: Lynnette Sevilla Unit #: [id number]: 1940 Dicatated By: Shorty Chadwick M.D.Date of Visit:November 15, 2020 Onc Med Follow-up/Prog Note Chief Complaint: Hemochromatosis/lung cancer. 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 His disease was stage IB (T2a, N0, M0) at initial diagnosis, but with subsequent progression to stage TIGIST (M1b). He also has hereditary hemochromatosis. In February [address] Tyler with persistent cough. His evaluation included chest CT on 03/04/2017. It showed a spiculated density in the medial aspect of the anterior segment of the right upper lobe. It measured 1.8 x 2.4 x 1.8 cm and it was new compared to a previous study from November 2013. There was no associated mediastinal or hilar adenopathy, and there was no evidence of liver or adrenal metastases. He underwent bronchoscopy on 04/06/2017. There were no endobronchial lesions identified. The lesion was found to be avid by PET/CT. There was no evidence of metastatic involvement. He underwent right upper lobectomy with mediastinal lymph node biopsy on 04/29/2017. Pathology showed low-grade (grade 1-2) adenocarcinoma measuring 3.2 x 2.4 cm. There was penetration into visceral pleura and there was evidence of lymphovascular space invasion. The margins of resection were free, and there was no involvement in 1 mediastinal lymph node, in 1 lymph node at the right mainstem bronchus, and in 2 hilar lymph nodes. He has continued on observation/expectant management following the surgery, as there appeared to be no indication for adjuvant chemotherapy. I had initially seen him in October 2012 in regard to elevated hemoglobin/hematocrit levels and elevated serum iron. His evaluation at that time showed his hemoglobin elevated at 18.1 g with hematocrit 52%. White count and platelet count were normal. The serum iron was in the upper normal range at 145 mcg/dL with transferrin saturation 30.8%. The serum ferritin, though, was elevated at 606 ng/mL. He had additional evaluation including an erythropoietin level which was in the normal range at 12 mIU/mL. A MICHAEL 2 gene mutation study was negative. The HFE gene analysis showed double heterozygosity for the C282Y and the H63D mutations, consistent with hereditary hemochromatosis. He has been managed on a phlebotomy program. Surveillance chest CT on 12/07/2018 showed stable postoperative changes from prior right upper lobectomy. There was long-term stability of left upper lower lobe nodules. There was chronic emphysema. There was no evidence for recurrent or metastatic neoplastic process. He continued observation/expectant management for the lung cancer. He had then presented to Dr. Tyler's office with swelling and redness in the left arm, in the area of the antecubital fossa. Venous Doppler of the left arm on 02/11/2019 showed extensive occlusive thrombus in the left basilic vein. All other veins of the left upper extremity appeared free of thrombus. He was started on anticoagulation with apixaban. He was seen here for follow-up on 02/25/2019. He then had a restaging PET/CT on 03/10/2019. It showed interval development of abnormal activity in a lytic lesion in the left femoral neck, suspicious for metastatic disease. There was interval resolution of the small right upper lobe lung mass. There were no other areas of abnormal uptake on that study. With those findings, he was referred to Dr. Chin. On 03/17/2019 he underwent prophylactic open reduction with interval fixation of the left hip. Pathology on the bone fragments did confirm metastatic carcinoma consistent with the previous diagnosis of pulmonary infiltrating adenocarcinoma. Following recovery from the surgery he was seen by Dr. Boggs for palliative radiation. He completed treatment on 04/18/2019 to a total dose of 3900 cGy. He tolerated the treatment well. In the meantime, I had also requested a next generation sequencing study. It was performed on the original lung tumor, as the specimen from the left femur was insufficient for analysis. That study showed low PD-L1 expression at 7%. The mutation burden, though, was high. The tumor was negative for EGFR, BRAF, and KRAS mutations, and it also tested negative for the ALK and ROS1 rearrangements. The NTRK fusion also was not detected. I had seen him for a follow-up visit on 05/02/2019. He had restaging CT scans on 06/01/2019 showed no evidence for recurrent disease in the chest, abdomen, or pelvis. In the setting of a treated, solitary metastasis, he was recommended to continue on observation/expectant management. On 06/28/2019 he was seen in the emergency room with complaints of dizziness. CT of the head with and without contrast showed no acute findings. He was diagnosed with vestibular neuronitis. On 07/04/2019 he was admitted to the hospital after returning to the emergency room with acute mental status changes. His repeat head CT showed a 10 mm focal area of low-attenuation in the left frontal lobe which appeared new from the recent study. Was felt to possibly represent a subacute infarct. Further evaluation with brain MRI showed multifocal patchy areas of acute ischemia involving the YUNG territories bilaterally. The largest area of ischemia measured approximately 1 cm. There was no evidence of mass-effect or midline shift. The clinical presentation appeared most consistent with cancer related hypercoagulability. As it occurred while on a therapeutic dose of apixaban, his anticoagulation was transitioned to therapeutic Lovenox. His echocardiogram showed normal left ventricular cavity size and systolic function with estimated ejection fraction at 60%. There were no significant valvular abnormalities noted. There appeared to be no significant change compared to her previous study from July 2018. His bilateral carotid Doppler studies showed just moderate atheromatous plaque bilaterally. Head MRA showed no evidence of high-grade proximal stenosis or aneurysm. He was discharged to [facility] for rehab. At that point, he was still having significant expressive aphasia, but his confusion had improved significantly. He subsequently was able to return home. Restaging CT scans of the chest, abdomen, and pelvis on 07/25/2019 showed stable 5 mm noncalcified pulmonary nodule in the left upper lobe and a 3 mm noncalcified nodule in the left lower lobe. There was no mediastinal or hilar adenopathy. A few scattered hypodensities throughout the liver are too small to characterize but similar to prior studies. A new 7 mm hypodensity was noted in the lower pole of the right kidney. There was increased density within the lumen of a contracted gallbladder, suspicious for stones and/or chronic cholecystitis. There was no osteoblastic or osteolytic bone disease identified. On 08/03/2019 he was seen in the emergency room with dizziness. He has repeat noncontrast head CT showed atrophy and chronic deep white matter ischemic change with no acute intracranial abnormality identified. He was diagnosed with vertigo and treated with meclizine. I had seen him for a follow-up visit on 08/08/2019. He had opted to stop the Lovenox injections, and he had restarted anticoagulation with apixaban. He also was taking Plavix. He was still having some difficulty with his speech and he was having some confusion at times and some difficulty with memory. Subsequent to that visit, his had called and reported that his memory and confusion were continuing to worsen. A repeat brain MRI on 08/23/2019 showed multifocal areas of abnormal diffusion abnormalities and flair signal abnormalities. It was noted to predominantly involve the left hippocampal formation with additional more focal diffusion signal abnormalities extending towards the temporal occipital junction posteriorly. That finding appeared to be most consistent with worsening subacute infarcts. Also noted, though, were additional cortical areas of very subtle enhancement throughout the brain which were suspicious for metastatic lesions. The most concerning were in the left frontal vertex. With those findings, I was able to get his anticoagulation transition back to Lovenox. A repeat PET/CT on 09/01/2019 showed interval development of a small well-circumscribed lytic lesion in the upper femoral neck on the right measuring up to 19 mm with SUV 7.3. A small amount of fracture was noted along the posterior upper border of the left greater trochanter. Abnormal increased activity was noted along the site of the previous suspected metastatic lesion in the left femoral neck with a maximum SUV 6.2, similar to the previous study. There were no other areas of significant abnormal activity identified. Given the PET/CT findings, he was then given palliative radiation to the right hip, completed on 09/28/2019 to a total dose of 3000 cGy. He tolerated the treatment well. In the meantime, a repeat brain MRI on 09/16/2019 again showed numerous bilateral multi lobar acute lacunar infarcts. The previously described areas of enhancement are felt to most likely be related to ischemia and not to metastatic disease. At that time there was felt to be no convincing evidence for metastatic disease. I had seen him for a follow-up visit on 03/2020. At that point he was beginning to show some recovery. I had discussed options for further treatment of the lung cancer. It was quite clear that he was not interested in attempting any chemotherapy. He did agree to continue anticoagulation with Lovenox, and ultimately he also agreed to a trial of immunotherapy. His other medical illnesses include hypertension, hyperlipidemia, type 2 diabetes, coronary artery disease, peripheral vascular disease, and degenerative arthritis. He underwent coronary artery bypass surgery in 1996 and he underwent an arterial bypass procedure to the right leg in 1999. In 2013 he was found to have significant hypoxemia. On evaluation he was found to have COPD and obstructive sleep apnea. 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 Also noted was calcific plaque at the origins of the common iliac arteries at 54% on the left and 60% on the right. He has a history of smoking 1-1 1/2 packs of cigarettes daily, but he quit smoking in 1996. INTERIM HISTORY: On 11/09/2019 he began a trial of immunotherapy with pembrolizumab as a single modality. He tolerated the initial infusion of pembrolizumab with no adverse effects, and he then continued treatment at 3-week intervals. As of 02/22/2020 he completed his 6th cycle. At his follow-up visit on 03/14/2020 he had developed a significant skin eruption on his trunk, mainly the back. With that finding, had stopped both the pembrolizumab and the denosumab, I also had him start prednisone, initially at 20 mg daily. The prednisone was later reduced to 10 mg daily, as the skin eruption was resolving. He was able to restart pembrolizumab on 03/28/2020. I opted to keep the denosumab on hold, as I felt it was the more likely cause for the eruption. He then continued his pembrolizumab infusions every 3 weeks. He completed his cycle 14 on 09/13/2020. Restaging CT scans of the chest, abdomen, and pelvis on 10/02/2020 showed no evidence of disease progression. There were mild chronic emphysematous changes noted. He continued his pembrolizumab infusions every 3 weeks. As of 10/25/2020 he completed his 16th cycle. He is seen for a follow-up visit. He has been feeling pretty good generally, though he does get short of breath with activity. He uses oxygen as needed. He is doing light work. His ECOG score is 1. Appetite is good. He has no fever or night sweats. Tends to have sinus drainage in the mornings. He has just occasional cough. He does not complain of chest pain. He has no GI or complaints. He has been having some joint pain, mainly in the thumbs. He does not complain of headache. He sometimes has difficulty with balance. He has no numbness/paresthesia or other focal neurologic symptoms. His has noticed that he is having a little more difficulty with memory and cognitive function. Medications: Acetaminophen Extra Strength 1 (500 mg) Tablet Oral b.i.d., amLODIPine Besylate 0.5 Tablet (of 5 mg) Oral at bedtime, B-12 1 Tablet (of 1000 mcg) Tablet Oral daily, Bisacodyl 1 Tablet (of 5 mg) Tablet, enteric coated Oral daily PRN, Carvedilol 1 (25 mg) Tablet Oral b.i.d., Cholecalciferol 1 Capsule (of 2000 Units) Oral daily, Dulcolax Milk of Magnesia 30 mL (of 400 mg/5mL) Suspension Oral daily PRN, Enoxaparin Sodium 80 mg (of 300 mg/3mL) Injection b.i.d., Famotidine 1 Tablet (of 20 mg) Oral b.i.d. PRN, Fish Oil 1 (1200 mg) Capsule Oral daily, Flonase Suspension Nasal, Gabapentin 1 Tablet (of 300 mg) Oral daily, Hydrocodone-Acetaminophen 1 (5-325 mg) Tablet Oral four times a day PRN, Jardiance 0.5 Tablet (of 12.5 ) Oral daily, Lovastatin 1 Tablet (of 40 mg) Oral b.i.d., Meclizine HCl 1 Tablet (of 25 mg) Oral daily PRN, MetFORMIN HCl 1 Tablet (of 500 mg) Oral b.i.d., Plavix 1 (75 mg) Tablet Oral daily, Spiriva Respimat Aerosol, solution Inhalation, Tamsulosin HCl 1 (0.4 mg) Capsule Oral daily Allergies: PENICILLIN AND ALEVE Vital Signs: Performed on November 15, 2020 10:51 Height - 65.00 in Weight - 174.2 lbs (HIGH) BSA - 1.87 sq.m BMI - 28.99 Temperature - 97.2 F (LOW) Pulse - 63 /min Respiration - 18 /min BP - 131/74 mm(hg) O2 Sat - 92 % (LOW) Pain - 0 Fatigue - 7 Physical Examination: Constitutional - He looks pretty good, but he does appear short of breath with effort, Eyes - Sclerae nonicteric. Conjunctivae clear, ENMT - No lesions noted in the oral cavity, Hematologic/Lymphatic - No cervical, clavicular, or axillary adenopathy, Respiratory - Lungs sound clear with some decrease in air movement bilaterally, Cardiovascular - Heart rhythm is regular. There is no murmur, gallop, or rub noted, Abdomen - Soft. Liver and spleen are not enlarged. There is no abdominal mass or ascites noted and there is no inguinal adenopathy, Extremities - No edema, Neurologic - No focal neurologic deficits noted. Lab/Imaging: Test performed on November 15, 2020 09:05 Sodium 136 mmol/L TSH 3.24 uIU/mL Potassium 4.4 mmol/L Chloride 100 mmol/L CO2 25 mmol/L Anion Gap 15.4 BUN 31 mg/dL Creatinine 1.0 mg/dL Cr Clearance (Est) 68.04 mL/min Glucose 288 mg/dL Osmolality - Calculated 299 mOsm/kg Calcium 9.5 mg/dL Protein, Total 7.0 g/dL Albumin 4.3 g/dL Globulin 2.7 g/dL Bilirubin, Total 0.7 mg/dL ALT (SGPT) 11 U/L AST (SGOT) 11 U/L Alkaline Phosphatase 37 IU/L WBC 5.4 10 3/uL RBC 5.62 10 6/uL HGB 17.7 g/dL HCT 50.9 % MCV 90.6 fL MCH 31.5 pg MCHC 34.8 g/dL RDW 13.3 % Platelet Count 188 10 3/cmm MPV 9.8 fL Neutrophils 3.39 10 3/uL Lymphocytes 0.9 10 3/uL Monocytes 0.5 10 3/uL Eosinophils 0.5 10 3/uL Basophils 0.1 10 3/uL Neutrophil % 63.4 % Lymphocyte % 17.0 % Monocyte % 9.5 % Eosinophil % 8.6 % Basophils % 1.1 % NRBC % 0 % Problem List: 1. Nonsmall cell cancer (low-grade adenocarcinoma) involving the upper lobe of the right lung, stage IB (T2a, N0, M0). He underwent right upper lobectomy with mediastinal lymph node biopsy on 04/29/2017. He had subsequent progression to stage IVB (M1c) with multiple sites of metastatic bone involvement. 2. A next generation sequencing study on his primary lung tumor showed low PD-L1 expression at 7%. The mutation burden was high. There were no actionable mutations identified. 3. 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 4. He has hereditary hemochromatosis. He was found to be doubly heterozygous for the C282Y and the H63D mutations. He has had a very good response to phlebotomy, with his subsequent ferritin levels maintained at less than 50 ng/mL compared to a pretreatment level of greater than 600. 5. He has underlying lung disease including COPD and obstructive sleep apnea, and he has associated chronic hypoxia. 6. Hypertension. 7. Hyperlipidemia. 8. Type II diabetes. 9. Coronary artery disease. 10. Peripheral arterial disease. 11. Degenerative arthritis. Problems Addressed with this Encounter and Plan: 1. Patient with nonsmall cell cancer (low-grade adenocarcinoma) involving the upper lobe of the right lung, stage IB (T2a, N0, M0). He underwent right upper lobectomy with mediastinal lymph node biopsy on 04/29/2017. He had subsequent progression to stage IVB (M1c) with multiple sites of metastatic bone involvement. A next generation sequencing study on his primary lung tumor showed low PD-L1 expression at 7%. The mutation burden was high. There were no actionable mutations identified. His restaging PET/CT on 03/10/2019 showed evidence of a single site of metastatic disease in the form of a lytic bone lesion in the left femoral neck. He underwent prophylactic ORIF of the left hip on 03/17/2019. Pathology confirmed metastatic adenocarcinoma. Following recovery from the surgery, he was seen by Dr. Boggs for palliative radiation. He completed treatment on 04/18/2019 to a total dose of 3900 cGy. A repeat PET/CT on 09/01/2019 showed a new small metastatic lesion in the right proximal femur. There was residual activity at the site of the metastatic lesion in the left femur. There were no other areas of abnormal activity noted on that study. He was then given palliative radiation to the right hip, completed on 09/28/2019 to a total dose of 3000 cGy. On 11/09/2019 he began a trial of immunotherapy with pembrolizumab. He tolerated the initial infusion of pembrolizumab with no adverse effects, and he then continued treatment at 3-week intervals. During that time he also began denosumab injections for the metastatic bone involvement. As of his follow-up visit on 03/14/2020 both the pembrolizumab and the denosumab were put on hold to development of skin eruption. The eruption gradually resolved on steroid therapy, and he was able to resume pembrolizumab on 03/28/2020. He was able to taper off prednisone, but with some persistent itching on his back, which he was able manage topically with CeraVe. He had otherwise tolerated treatment well. His restaging CT scans on 06/18/2020 showed no evidence of metastatic disease. He then continued treatment with pembrolizumab at 3-week intervals. His restaging CT scans on 10/02/2020 showed no evidence of disease progression, and he continued his same treatment. He has now completed a year of immunotherapy. He is having some limitation in his activity tolerance due to shortness of breath. His has noticed some further decline in memory/cognitive function, but he otherwise appears stable clinically. Overall, he appears to be doing well with no obvious progression of the lung cancer. He will be given pembrolizumab 200 mg by IV infusion. He returns for treatment in 3 weeks and for a follow-up visit in 6 weeks. 2. 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 He continues anticoagulation with Lovenox. Signed By: Shorty Chadwick M.D. <<Signature on File>>
== END 2020-11-15 08:46 | disposition home or self-care (01) ==
PROVIDERS: PCP Nurse Practitioner Family; Visit Provider Internal Medicine Medical Oncology
DX: Z51.12 Encounter for antineoplastic immunotherapy (principal); C34.11 Malignant neoplasm of upper lobe, right bronchus or lung; C79.51 Secondary malignant neoplasm of bone; E83.111 Hemochromatosis due to repeated red blood cell transfusions; I63.9 Cerebral infarction, unspecified; J44.9 Chronic obstructive pulmonary disease, unspecified; G47.33 Obstructive sleep apnea (adult) (pediatric); R09.02 Hypoxemia; I10 Essential (primary) hypertension; E78.5 Hyperlipidemia, unspecified; E11.59 Type 2 diabetes mellitus with other circulatory complications; I25.10 Atherosclerotic heart disease of native coronary artery without angina pectoris; I73.9 Peripheral vascular disease, unspecified; Z79.899 Other long term (current) drug therapy
CPT/HCPCS: 80053; 84443; 85025; 96413; 99214; J7050; J9271

== ENCOUNTER 2020-11-20 16:55 | Emergency (ER) | payer MEDICARE, SELFPAY ==
[2020-11-20 17:12] VITALS: BP 137/69; PULSE 65; RESP 18; TEMP 36.5; O2SAT 89; BMI 28.6
--- NOTE | 2020-11-20 18:26 | CTR_ITS ---
PROCEDURE INFORMATION: Exam: CT Head Without Contrast Exam date and time: 11/20/2020 6:29 PM Age: 80 years old Clinical indication: Dizziness; Additional info: Dizziness, previous CVA, lung cancer TECHNIQUE: Imaging protocol: Computed tomography of the head without contrast. Radiation optimization: All CT scans at this facility use at least one of these dose optimization techniques: automated exposure control; mA and/or kV adjustment per patient size (includes targeted exams where dose is matched to clinical indication); or iterative reconstruction. COMPARISON: CT head wo con* [id number] 02/15/2020 12:23 PM RADIATION DOSE METRICS: Total DLP (mGy-cm): 922.18 FINDINGS: Brain: There is moderate cerebral atrophy. No intracranial hemorrhage. No intracranial mass. No acute brain ischemia. No midline shift of brain. Small focal area of encephalomalacia of the posteromedial right temporal lobe. No focal intracranial mass. Cerebral ventricles: No ventriculomegaly. Paranasal sinuses: Visualized sinuses are unremarkable. No fluid levels. Mastoid air cells: Visualized mastoid air cells are well aerated. Orbital cavity: Bilateral lens replacements. Orbits are symmetric. Vasculature: Scattered intracranial atherosclerosis. Bones/joints: Unremarkable. No acute fracture. Soft tissues: Unremarkable. CT/CT head wo con* [id number] IMPRESSION: No acute intracranial abnormality. Radiation Dose CTDIVOL = (mGy): DLP = 922.18 (mGy-cm)
[2020-11-20] MEDS: ondansetron 4 MG Tablet PO (18:53)
[2020-11-20 18:54] VITALS: BP 138/71; PULSE 61; RESP 23; O2SAT 91
--- NOTE | 2020-11-20 19:22 | W.ED.DIZZY ---
HPI - Dizziness General: Chief Complaint: Dizziness Stated Complaint: dizzy spells, throwing up Time Seen by Provider: 11/20/20 18:14 History of Present Illness: HPI Narrative: So patient had a dizzy spell this morning he said when he turned his head to look over at his alarm clock it was kind of wiggling and then when he went to go set up the room was really dizzy so he laid back down and each time he moved or did certain positions he was dizzy. Denies any neurological focal deficits denies headache denies any changes in his gait then later this afternoon he had another dizzy spell that caused him to vomit one time but he denies any abdominal pain denies nausea at this time denies any abdominal pain or fevers or diarrhea or chills he came in this afternoon because his was worried that he could have had a stroke because in the past he had some other type symptoms and she ignored him and so she was concerned and wanted him to come in. 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 Patient denies any symptoms at this time He did take 1 meclizine earlier this morning He has had spells like this before and says it has all been positional and that that is why he has the meclizine because he has had vertigo before Review of Systems Narrative: General: denies fatigue, fever or chills HEENT: denies ear pain, denies nasal congestion, denies vision changes, denies sore throat Neck: denies masses or pain Resp: denies cough, denies shortness of breath, denies pleuritic pain Cardio: denies chest pain, denies edema GI: denies abdominal pain, denies N/V/D, denies black/tarry or bloody stools : denies hematuria, denies dysuria Neuro: denies headache, denies current dizziness, denies motor or sensory changes Musculoskeletal: denies pain, denies swelling Skin: denies rashes Psych: denies SI or HI Endocrine: denies thyroid symptoms, denies lymphadenopathy all over ROS reviewed and patient denies PFSH ED PFSH: Medical History Accelerated hypertension Allergic rhinitis Atherosclerosis of coronary artery of [place] heart BPH (benign prostatic hyperplasia) Carotid artery disease 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 Chronic anticoagulation COPD (chronic obstructive pulmonary disease) Coronary artery disease DJD (degenerative joint disease) DVT (deep venous thrombosis) GERD (gastroesophageal reflux disease) Gout Hemochromatosis Hyperlipidemia Hypertension Lung cancer 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 Obstructive sleep apnea Peripheral arterial disease with history of revascularization Peripheral neuropathy Type 2 diabetes mellitus Surgical History History of left hip hemiarthroplasty Family History Mother Diabetes Social History Smoking and tobacco status: former smoker Alcohol intake: never Lives independently: Yes Household members: spouse History of recent travel: No Special jazlyn needs: No Physical Exam Narrative: EXAM NARRATIVE: General: a/o/3, no distress Head: atraumatic HEENT: normal eyes, normal conjunctiva, normal hearing, normal external nose, normal mouth, mucous membranes moist Neck: FROM, trachea midline Chest: normal expansion, no gross deformities Resp: normal speech, no retractions, no accessory muscle use, CTA bilaterally Cardio: regular rate and rhythm and no murmur, no peripheral edema, normal peripheral pulses GI: soft, flat non tender, no guarding normal BS : deferred Musculoskeletal: FROM, no pain or gross deformities Neuro: a/o appropriate for age, no gross motor or sensory deficits, CN II-XII grossly intact, no nystagmus normal coordination, normal speech, normal gait Skin: no rashes Psych: cooperative, normal mood and effect Course Vital Signs: Vital signs: Vital Signs Temperature 97.7 F 11/20/20 17:12 Pulse Rate 61 11/20/20 18:54 Respiratory Rate 23 H 11/20/20 18:54 Blood Pressure 138/71 11/20/20 18:54 Pulse Oximetry 91 11/20/20 18:54 MDM - Dizziness MDM Narrative: Medical decision making narrative: Patient's had previous MRI and CTs of his head however that was last fall patient really did not want anything done but he said do what ever to help make his more comfortable. So we agreed to CT of the head he did not want any laboratory work he says he gets it done regularly I did review it he just had labs on 11/15/20 and chemistries looked normal Patient was agreeable to do the CT scan I gave him a Zofran and a 2 mg Valium patient had meclizine 1 time earlier today and has not repeated it I just thought this might be something a little different to try he has no further signs or symptoms Patient did not get the Valium here in the emergency department as it was taken a while from pharmacy patient says he is not dizzy now because he is lying down and he would like to just go home and he will take a meclizine when he gets home Medical Records: Attestation: I reviewed the patient's medical records. Lab Data: Attestation: I reviewed the patient's lab results. Discharge Plan Discharge Patient Disposition: Home Clinical Impression: Dizziness Condition: Stable Prescriptions: No Action hydrocodone-acetaminophen 5-325 mg tablet 1 tab PO PRN PRN (Reason: Pain) RF: 0 carvedilol 25 mg Tablet 25 mg PO BID@0800,1800 RF: 0 clopidogrel [Plavix] 75 mg Tablet 75 mg PO DAILY@0800 RF: 0 famotidine 20 mg Tablet 20 mg PO BID PRN (Reason: unknown) RF: 0 tamsulosin [Flomax] 0.4 mg Capsule 0.4 mg PO DAILY RF: 0 gabapentin 300 mg Capsule 300 mg PO BEDTIME@1800 RF: 0 allopurinol 300 mg Tablet 300 mg PO DAILY@0800 RF: 0 metformin 500 mg Tablet Extended Release 24 Hr 500 mg PO BID@0800,1800 RF: 0 vitamin [id number] acid 0.5-1 mg Tablet 1 tab PO DAILY@0800 RF: 0 cholecalciferol (vitamin D3) [Vitamin D3] 2,000 unit Tablet 2,000 unit PO DAILY@0800 RF: 0 omega 0-lgo-mic-fish oil [Fish Oil] 1,000 mg (120 mg-180 mg) Capsule 1 cap PO DAILY@0800 RF: 0 Jardiance 25 mg Tablet 12.5 mg PO DAILY@0800 RF: 0 meclizine 25 mg tablet 25 - 50 mg PO DAILY PRN (Reason: dizziness) RF: 0 donepezil 5 mg tablet 5 mg PO DAILY@0800 RF: 0 cetirizine 10 mg Tablet 5 mg PO DAILY PRN (Reason: Allergy Symptoms) RF: 0 amlodipine 5 mg tablet 2.5 mg PO DAILY@0800 RF: 0 Seroquel 25 mg tablet 25 mg PO BID@0800,1800 RF: 0 lovastatin 40 mg Tablet 40 mg PO BID@0800,1800 RF: 0 fluticasone propionate [Flonase Allergy Relief] 50 mcg/actuation [place],Suspension 2 spray INTRANASAL DAILY PRN (Reason: unknown) RF: 0 guaifenesin [Mucinex] 600 mg Tablet Extended Release 12hr 600 mg PO PRN PRN (Reason: Cold Symptoms) RF: 0 Spiriva Respimat 1.25 mcg/actuation Mist 2 puff INHALATION DAILY PRN (Reason: unknown) RF: 0 docusate sodium 100 mg capsule 100 mg PO DAILY PRN (Reason: Constipation) RF: 0 enoxaparin [Lovenox] 80 mg/0.8 mL Syringe 80 mg SUBCUT Q12H 30 Days Qty: 48 RF: 0 Discharge Orders: Discharge ED (Routine); Ordered 11/20/20 Ordered By: Parul Meredith Referrals: Aislinn Beebe, [facility] [employer] [Primary Care Provider] - Discharge Diet: Usual diet Discharge Activity: Limit activity as instructed Patient Instructions: Benign Paroxysmal Positional Vertigo (ED) Activity Restrictions/Additional Instructions: Okay to take a meclizine when you get home If you have continued dizziness or worsening of symptoms return to the emergency department or see your Dr. Chadwick or your primary care physician If you are dizzy tomorrow then recommend you do not volunteer Thank you for choosing [facility] for your healthcare needs today. Please realize this is an emergency room and that we are providing you with a medical screening exam and this may not be complete and all inclusive of all the testing and or work up that you may need to determine your ailment or severity of your illness. It is very important that you follow up as instructed or that you return to the Emergency Department should you have concerns or if your condition changes or worsens in any way. Coding Level of Care Code ED Tester Equipment for [facility]
[2020-11-20 19:49] VITALS: BP 126/58; PULSE 66; RESP 18; O2SAT 95
== END 2020-11-20 19:49 | disposition home or self-care (01) ==
PROVIDERS: Emergency Provider Emergency Medicine; PCP Nurse Practitioner Family
DX: R42 Dizziness and giddiness (principal); Z79.02 Long term (current) use of antithrombotics/antiplatelets; Z79.84 Long term (current) use of oral hypoglycemic drugs; I25.10 Atherosclerotic heart disease of native coronary artery without angina pectoris; J44.9 Chronic obstructive pulmonary disease, unspecified; E78.5 Hyperlipidemia, unspecified; I10 Essential (primary) hypertension; Z85.118 Personal history of other malignant neoplasm of bronchus and lung; E11.42 Type 2 diabetes mellitus with diabetic polyneuropathy; Z87.891 Personal history of nicotine dependence
CPT/HCPCS: 70450; 99283; Q0162

== ENCOUNTER 2020-12-06 08:45 | Outpatient (CLI) | payer MEDICARE, SELFPAY | END 2020-12-06 08:46 | disposition home or self-care (01) | LOC: ONCMED 08:48 | PROVIDERS: PCP Nurse Practitioner Family; Visit Provider Internal Medicine Medical Oncology | DX: Z51.12 Encounter for antineoplastic immunotherapy (principal); C34.11 Malignant neoplasm of upper lobe, right bronchus or lung; C79.51 Secondary malignant neoplasm of bone; E83.110 Hereditary hemochromatosis; Z79.899 Other long term (current) drug therapy | CPT/HCPCS: 96413; J7050; J9271 ==

== ENCOUNTER 2020-12-27 08:31 | Outpatient (CLI) | payer MEDICARE, SELFPAY ==
[2020-12-27 09:14] LABS: Basophils # 0.1 10^3/uL (0.0-0.1); Basophils % 1.2 %; Eosinophils # 0.4 10^3/uL (0.0-0.8); Hematocrit 52.2 % (42.0-52.0); Hemoglobin 17.9 g/dL (11.7-16.6); Lymphocytes % 16.8 %; Mean Corpuscular HGB Conc 34.3 g/dL (30.0-36.0); Mean Corpuscular Hemoglobin 31.3 pg (28.0-34.0); Mean Corpuscular Volume 91.4 fL (80-94); Mean Platelet Volume 9.9 fL (7.4-10.4); Monocytes # 0.5 10^3/uL (0.2-0.9); Monocytes % 8.7 %; Neutrophils # 3.83 10^3/uL (1.8-7.7); Neutrophils % 65.8 %; Nucleated Red Blood Cells % 0.3 %; Platelet Count 187 10^3/cmm (130-400); Red Blood Count 5.71 10^6/uL (4.1-5.3); Red Cell Distribution Width 13.2 % (12.1-15.1); White Blood Count 5.8 10^3/uL (4.0-10.0)
[2020-12-27 09:43] LABS: Alanine Aminotransferase 12 U/L (0-41); Albumin Level 4.1 g/dL (3.5-5.2); Alkaline Phosphatase 39 IU/L (40-130); Anion Gap 14.1 (5-19); Aspartate Amino Transferase 12 U/L (0-40); Blood Urea Nitrogen 23 mg/dL (8-23); Calcium 9.5 mg/dL (8.5-10.5); Carbon Dioxide 27 mmol/L (22-29); Chloride 101 mmol/L (98-107); Globulin 2.5 g/dL (1.3-4.6); Glucose 256 mg/dL (65-115); Osmolality Calculated 298 mOsm/kg (285-295); Potassium 4.1 mmol/L (3.5-5.1); Sodium 138 mmol/L (136-145); Thyroid Stimulating Hormone 4.07 uIU/mL (0.27-4.20); Total Bilirubin 1.1 mg/dL (0.15-1.2); Total Protein 6.6 g/dL (6.6-8.7)
--- NOTE | 2020-12-30 10:48 | ONC FU_ITS ---
Dr. Chadwick Patient Follow-Up Note Patient: Lynnette Sevilla Unit #: [id number]: [id number] Dicatated By: Shorty Chadwick M.D.Date of Visit:Dec 27, 2020 Onc Med Follow-up/Prog Note Chief Complaint: Hemochromatosis/lung cancer. 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 His disease was stage IB (T2a, N0, M0) at initial diagnosis, but with subsequent progression to stage TIGIST (M1b). He also has hereditary hemochromatosis. In February [address] Tyler with persistent cough. His evaluation included chest CT on 03/04/2017. It showed a spiculated density in the medial aspect of the anterior segment of the right upper lobe. It measured 1.8 x 2.4 x 1.8 cm and it was new compared to a previous study from November 2013. There was no associated mediastinal or hilar adenopathy, and there was no evidence of liver or adrenal metastases. He underwent bronchoscopy on 04/06/2017. There were no endobronchial lesions identified. The lesion was found to be avid by PET/CT. There was no evidence of metastatic involvement. He underwent right upper lobectomy with mediastinal lymph node biopsy on 04/29/2017. Pathology showed low-grade (grade 1-2) adenocarcinoma measuring 3.2 x 2.4 cm. There was penetration into visceral pleura and there was evidence of lymphovascular space invasion. The margins of resection were free, and there was no involvement in 1 mediastinal lymph node, in 1 lymph node at the right mainstem bronchus, and in 2 hilar lymph nodes. He has continued on observation/expectant management following the surgery, as there appeared to be no indication for adjuvant chemotherapy. I had initially seen him in October 2012 in regard to elevated hemoglobin/hematocrit levels and elevated serum iron. His evaluation at that time showed his hemoglobin elevated at 18.1 g with hematocrit 52%. White count and platelet count were normal. The serum iron was in the upper normal range at 145 mcg/dL with transferrin saturation 30.8%. The serum ferritin, though, was elevated at 606 ng/mL. He had additional evaluation including an erythropoietin level which was in the normal range at 12 mIU/mL. A MICHAEL 2 gene mutation study was negative. The HFE gene analysis showed double heterozygosity for the C282Y and the H63D mutations, consistent with hereditary hemochromatosis. He has been managed on a phlebotomy program. Surveillance chest CT on 12/07/2018 showed stable postoperative changes from prior right upper lobectomy. There was long-term stability of left upper lower lobe nodules. There was chronic emphysema. There was no evidence for recurrent or metastatic neoplastic process. He continued observation/expectant management for the lung cancer. He had then presented to Dr. Tyler's office with swelling and redness in the left arm, in the area of the antecubital fossa. Venous Doppler of the left arm on 02/11/2019 showed extensive occlusive thrombus in the left basilic vein. All other veins of the left upper extremity appeared free of thrombus. He was started on anticoagulation with apixaban. He was seen here for follow-up on 02/25/2019. He then had a restaging PET/CT on 03/10/2019. It showed interval development of abnormal activity in a lytic lesion in the left femoral neck, suspicious for metastatic disease. There was interval resolution of the small right upper lobe lung mass. There were no other areas of abnormal uptake on that study. With those findings, he was referred to Dr. Chin. On 03/17/2019 he underwent prophylactic open reduction with interval fixation of the left hip. Pathology on the bone fragments did confirm metastatic carcinoma consistent with the previous diagnosis of pulmonary infiltrating adenocarcinoma. Following recovery from the surgery he was seen by Dr. Boggs for palliative radiation. He completed treatment on 04/18/2019 to a total dose of 3900 cGy. He tolerated the treatment well. In the meantime, I had also requested a next generation sequencing study. It was performed on the original lung tumor, as the specimen from the left femur was insufficient for analysis. That study showed low PD-L1 expression at 7%. The mutation burden, though, was high. The tumor was negative for EGFR, BRAF, and KRAS mutations, and it also tested negative for the ALK and ROS1 rearrangements. The NTRK fusion also was not detected. I had seen him for a follow-up visit on 05/02/2019. He had restaging CT scans on 06/01/2019 showed no evidence for recurrent disease in the chest, abdomen, or pelvis. In the setting of a treated, solitary metastasis, he was recommended to continue on observation/expectant management. On 06/28/2019 he was seen in the emergency room with complaints of dizziness. CT of the head with and without contrast showed no acute findings. He was diagnosed with vestibular neuronitis. On 07/04/2019 he was admitted to the hospital after returning to the emergency room with acute mental status changes. His repeat head CT showed a 10 mm focal area of low-attenuation in the left frontal lobe which appeared new from the recent study. Was felt to possibly represent a subacute infarct. Further evaluation with brain MRI showed multifocal patchy areas of acute ischemia involving the YUNG territories bilaterally. The largest area of ischemia measured approximately 1 cm. There was no evidence of mass-effect or midline shift. The clinical presentation appeared most consistent with cancer related hypercoagulability. As it occurred while on a therapeutic dose of apixaban, his anticoagulation was transitioned to therapeutic Lovenox. His echocardiogram showed normal left ventricular cavity size and systolic function with estimated ejection fraction at 60%. There were no significant valvular abnormalities noted. There appeared to be no significant change compared to her previous study from July 2018. His bilateral carotid Doppler studies showed just moderate atheromatous plaque bilaterally. Head MRA showed no evidence of high-grade proximal stenosis or aneurysm. He was discharged to [facility] for rehab. At that point, he was still having significant expressive aphasia, but his confusion had improved significantly. He subsequently was able to return home. Restaging CT scans of the chest, abdomen, and pelvis on 07/25/2019 showed stable 5 mm noncalcified pulmonary nodule in the left upper lobe and a 3 mm noncalcified nodule in the left lower lobe. There was no mediastinal or hilar adenopathy. A few scattered hypodensities throughout the liver are too small to characterize but similar to prior studies. A new 7 mm hypodensity was noted in the lower pole of the right kidney. There was increased density within the lumen of a contracted gallbladder, suspicious for stones and/or chronic cholecystitis. There was no osteoblastic or osteolytic bone disease identified. On 08/03/2019 he was seen in the emergency room with dizziness. He has repeat noncontrast head CT showed atrophy and chronic deep white matter ischemic change with no acute intracranial abnormality identified. He was diagnosed with vertigo and treated with meclizine. I had seen him for a follow-up visit on 08/08/2019. He had opted to stop the Lovenox injections, and he had restarted anticoagulation with apixaban. He also was taking Plavix. He was still having some difficulty with his speech and he was having some confusion at times and some difficulty with memory. Subsequent to that visit, his had called and reported that his memory and confusion were continuing to worsen. A repeat brain MRI on 08/23/2019 showed multifocal areas of abnormal diffusion abnormalities and flair signal abnormalities. It was noted to predominantly involve the left hippocampal formation with additional more focal diffusion signal abnormalities extending towards the temporal occipital junction posteriorly. That finding appeared to be most consistent with worsening subacute infarcts. Also noted, though, were additional cortical areas of very subtle enhancement throughout the brain which were suspicious for metastatic lesions. The most concerning were in the left frontal vertex. With those findings, I was able to get his anticoagulation transition back to Lovenox. A repeat PET/CT on 09/01/2019 showed interval development of a small well-circumscribed lytic lesion in the upper femoral neck on the right measuring up to 19 mm with SUV 7.3. A small amount of fracture was noted along the posterior upper border of the left greater trochanter. Abnormal increased activity was noted along the site of the previous suspected metastatic lesion in the left femoral neck with a maximum SUV 6.2, similar to the previous study. There were no other areas of significant abnormal activity identified. Given the PET/CT findings, he was then given palliative radiation to the right hip, completed on 09/28/2019 to a total dose of 3000 cGy. He tolerated the treatment well. In the meantime, a repeat brain MRI on 09/16/2019 again showed numerous bilateral multi lobar acute lacunar infarcts. The previously described areas of enhancement are felt to most likely be related to ischemia and not to metastatic disease. At that time there was felt to be no convincing evidence for metastatic disease. I had seen him for a follow-up visit on 03/2020. At that point he was beginning to show some recovery. I had discussed options for further treatment of the lung cancer. It was quite clear that he was not interested in attempting any chemotherapy. He did agree to continue anticoagulation with Lovenox, and ultimately he also agreed to a trial of immunotherapy. His other medical illnesses include hypertension, hyperlipidemia, type 2 diabetes, coronary artery disease, peripheral vascular disease, and degenerative arthritis. He underwent coronary artery bypass surgery in 1996 and he underwent an arterial bypass procedure to the right leg in 1999. In 2013 he was found to have significant hypoxemia. On evaluation he was found to have COPD and obstructive sleep apnea. 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 Also noted was calcific plaque at the origins of the common iliac arteries at 54% on the left and 60% on the right. He has a history of smoking 1-1 1/2 packs of cigarettes daily, but he quit smoking in 1996. INTERIM HISTORY: On 11/09/2019 he began a trial of immunotherapy with pembrolizumab as a single modality. He tolerated the initial infusion of pembrolizumab with no adverse effects, and he then continued treatment at 3-week intervals. As of 02/22/2020 he completed his 6th cycle. At his follow-up visit on 03/14/2020 he had developed a significant skin eruption on his trunk, mainly the back. With that finding, had stopped both the pembrolizumab and the denosumab, I also had him start prednisone, initially at 20 mg daily. The prednisone was later reduced to 10 mg daily, as the skin eruption was resolving. He was able to restart pembrolizumab on 03/28/2020. I opted to keep the denosumab on hold, as I felt it was the more likely cause for the eruption. He then continued his pembrolizumab infusions every 3 weeks. He completed his cycle 14 on 09/13/2020. Restaging CT scans of the chest, abdomen, and pelvis on 10/02/2020 showed no evidence of disease progression. There were mild chronic emphysematous changes noted. He continued his pembrolizumab infusions every 3 weeks. As of 12/06/2020 he completed his 18th cycle. He is seen for a follow-up visit. He has been feeling pretty good generally, though last month he was back in the emergency room complaining of dizziness. A noncontrast head CT showed no acute abnormality. He was treated symptomatically. He has reasonably good energy/activity tolerance. He is able to do light work. He has good appetite. He has no fever or night sweats. He does have some sinus drainage and he has a morning cough. He does get short of breath with activity. He uses oxygen as needed. He does not complain of chest pain. He has no GI or complaints. He does have some pain in his hips, which she thinks may be getting a little worse. He does not complain of headache. He still tends to have dizziness. He has no numbness/paresthesia or other focal neurologic symptoms. Medications: Acetaminophen Extra Strength 1 (500 mg) Tablet Oral b.i.d., amLODIPine Besylate 0.5 Tablet (of 5 mg) Oral at bedtime, B-12 1 Tablet (of 1000 mcg) Tablet Oral daily, Bisacodyl 1 Tablet (of 5 mg) Tablet, enteric coated Oral daily PRN, Carvedilol 1 (25 mg) Tablet Oral b.i.d., Cholecalciferol 1 Capsule (of 2000 Units) Oral daily, Dulcolax Milk of Magnesia 30 mL (of 400 mg/5mL) Suspension Oral daily PRN, Enoxaparin Sodium 80 mg (of 300 mg/3mL) Injection b.i.d., Famotidine 1 Tablet (of 20 mg) Oral b.i.d. PRN, Fish Oil 1 (1200 mg) Capsule Oral daily, Flonase Suspension Nasal, Gabapentin 1 Tablet (of 300 mg) Oral daily, Hydrocodone-Acetaminophen 1 (5-325 mg) Tablet Oral four times a day PRN, Jardiance 0.5 Tablet (of 12.5 ) Oral daily, Lovastatin 1 Tablet (of 40 mg) Oral b.i.d., Meclizine HCl 1 Tablet (of 25 mg) Oral daily PRN, MetFORMIN HCl 1 Tablet (of 500 mg) Oral b.i.d., Plavix 1 (75 mg) Tablet Oral daily, Spiriva Respimat Aerosol, solution Inhalation, Tamsulosin HCl 1 (0.4 mg) Capsule Oral daily Allergies: PENICILLIN AND ALEVE Vital Signs: Performed on Dec 27, 2020 10:53 Height - 65.00 in Weight - 176.8 lbs (HIGH) BSA - 1.88 sq.m BMI - 29.42 Temperature - 97.7 F (LOW) Pulse - 62 /min Respiration - 18 /min BP - 123/60 mm(hg) O2 Sat - 94 % (LOW) Pain - 6 Fatigue - 5 Physical Examination: Constitutional - He looks pretty good generally, Eyes - Sclerae nonicteric. Conjunctivae clear, ENMT - No lesions noted in the oral cavity, Hematologic/Lymphatic - No cervical, clavicular, or axillary adenopathy, Respiratory - Lungs sound clear with some decrease in air movement bilaterally, Cardiovascular - Heart rhythm is regular. There is no murmur, gallop, or rub noted, Abdomen - Soft. Liver and spleen are not enlarged. There is no abdominal mass or ascites noted and there is no inguinal adenopathy, Extremities - No edema, Neurologic - No focal neurologic deficits noted. Lab/Imaging: Test performed on Dec 27, 2020 08:50 Sodium 138 mmol/L TSH 4.07 uIU/mL Potassium 4.1 mmol/L Chloride 101 mmol/L CO2 27 mmol/L Anion Gap 14.1 BUN 23 mg/dL Creatinine 0.9 mg/dL Cr Clearance (Est) 76.73 mL/min Glucose 256 mg/dL Osmolality - Calculated 298 mOsm/kg Calcium 9.5 mg/dL Protein, Total 6.6 g/dL Albumin 4.1 g/dL Globulin 2.5 g/dL Bilirubin, Total 1.1 mg/dL ALT (SGPT) 12 U/L AST (SGOT) 12 U/L Alkaline Phosphatase 39 IU/L WBC 5.8 10 3/uL RBC 5.71 10 6/uL HGB 17.9 g/dL HCT 52.2 % MCV 91.4 fL MCH 31.3 pg MCHC 34.3 g/dL RDW 13.2 % Platelet Count 187 10 3/cmm MPV 9.9 fL Neutrophils 3.83 10 3/uL Lymphocytes 1.0 10 3/uL Monocytes 0.5 10 3/uL Eosinophils 0.4 10 3/uL Basophils 0.1 10 3/uL Neutrophil % 65.8 % Lymphocyte % 16.8 % Monocyte % 8.7 % Eosinophil % 7.0 % Basophils % 1.2 % NRBC % 0.3 % Problem List: 1. Nonsmall cell cancer (low-grade adenocarcinoma) involving the upper lobe of the right lung, stage IB (T2a, N0, M0). He underwent right upper lobectomy with mediastinal lymph node biopsy on 04/29/2017. He had subsequent progression to stage IVB (M1c) with multiple sites of metastatic bone involvement. 2. A next generation sequencing study on his primary lung tumor showed low PD-L1 expression at 7%. The mutation burden was high. There were no actionable mutations identified. 3. 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 4. He has hereditary hemochromatosis. He was found to be doubly heterozygous for the C282Y and the H63D mutations. He has had a very good response to phlebotomy, with his subsequent ferritin levels maintained at less than 50 ng/mL compared to a pretreatment level of greater than 600. 5. He has underlying lung disease including COPD and obstructive sleep apnea, and he has associated chronic hypoxia. 6. Hypertension. 7. Hyperlipidemia. 8. Type II diabetes. 9. Coronary artery disease. 10. Peripheral arterial disease. 11. Degenerative arthritis. Problems Addressed with this Encounter and Plan: 1. Patient with nonsmall cell cancer (low-grade adenocarcinoma) involving the upper lobe of the right lung, stage IB (T2a, N0, M0). He underwent right upper lobectomy with mediastinal lymph node biopsy on 04/29/2017. He had subsequent progression to stage IVB (M1c) with multiple sites of metastatic bone involvement. A next generation sequencing study on his primary lung tumor showed low PD-L1 expression at 7%. The mutation burden was high. There were no actionable mutations identified. His restaging PET/CT on 03/10/2019 showed evidence of a single site of metastatic disease in the form of a lytic bone lesion in the left femoral neck. He underwent prophylactic ORIF of the left hip on 03/17/2019. Pathology confirmed metastatic adenocarcinoma. Following recovery from the surgery, he was seen by Dr. Boggs for palliative radiation. He completed treatment on 04/18/2019 to a total dose of 3900 cGy. A repeat PET/CT on 09/01/2019 showed a new small metastatic lesion in the right proximal femur. There was residual activity at the site of the metastatic lesion in the left femur. There were no other areas of abnormal activity noted on that study. He was then given palliative radiation to the right hip, completed on 09/28/2019 to a total dose of 3000 cGy. On 11/09/2019 he began a trial of immunotherapy with pembrolizumab. He tolerated the initial infusion of pembrolizumab with no adverse effects, and he then continued treatment at 3-week intervals. During that time he also began denosumab injections for the metastatic bone involvement. As of his follow-up visit on 03/14/2020 both the pembrolizumab and the denosumab were put on hold to development of skin eruption. The eruption gradually resolved on steroid therapy, and he was able to resume pembrolizumab on 03/28/2020. He was able to taper off prednisone, but with some persistent itching on his back, which he was able manage topically with CeraVe. He had otherwise tolerated treatment well. His restaging CT scans on 06/18/2020 showed no evidence of metastatic disease. He then continued treatment with pembrolizumab at 3-week intervals. His restaging CT scans on 10/02/2020 showed no evidence of disease progression, and he continued his same treatment. He has since then continued to complain of dizziness, and his continues to report that he has issues with his memory. His overall clinical status, though, remained stable. Overall, he continues to tolerate the immunotherapy well, and thus far there has been no further progression of the lung cancer. As such, he will continue pembrolizumab 200 mg by IV infusion. He returns for treatment in 3 weeks and for a follow-up visit in 6 weeks. I will plan restaging CT scans at a 6-month interval. 2. 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 He continues anticoagulation with Lovenox. Signed By: Shorty Chadwick M.D. <<Signature on File>>
== END 2020-12-27 08:32 | disposition home or self-care (01) ==
LOC: ONCMED 08:34
PROVIDERS: PCP Nurse Practitioner Family; Visit Provider Internal Medicine Medical Oncology
DX: Z51.12 Encounter for antineoplastic immunotherapy (principal); C34.11 Malignant neoplasm of upper lobe, right bronchus or lung; C79.51 Secondary malignant neoplasm of bone; E83.110 Hereditary hemochromatosis; J44.9 Chronic obstructive pulmonary disease, unspecified; G47.33 Obstructive sleep apnea (adult) (pediatric); R09.02 Hypoxemia; I10 Essential (primary) hypertension; E78.5 Hyperlipidemia, unspecified; E11.59 Type 2 diabetes mellitus with other circulatory complications; I25.10 Atherosclerotic heart disease of native coronary artery without angina pectoris; I73.9 Peripheral vascular disease, unspecified; M19.90 Unspecified osteoarthritis, unspecified site; Z86.711 Personal history of pulmonary embolism; Z86.73 Personal history of transient ischemic attack (TIA), and cerebral infarction without residual deficits; Z79.899 Other long term (current) drug therapy
CPT/HCPCS: 36415; 80053; 84443; 85025; 96413; 99214; J7050; J9271

== ENCOUNTER 2021-01-17 12:35 | Outpatient (CLI) | payer MEDICARE, SELFPAY | END 2021-01-17 12:36 | disposition home or self-care (01) | LOC: ONCMED 12:37 | PROVIDERS: PCP Nurse Practitioner Family; Visit Provider Internal Medicine Medical Oncology | DX: Z51.12 Encounter for antineoplastic immunotherapy (principal); C34.11 Malignant neoplasm of upper lobe, right bronchus or lung; C79.51 Secondary malignant neoplasm of bone; E83.110 Hereditary hemochromatosis; Z79.899 Other long term (current) drug therapy | CPT/HCPCS: 96413; J7050; J9271 ==

== ENCOUNTER 2021-02-07 08:49 | Outpatient (CLI) | payer MEDICARE, SELFPAY ==
[2021-02-07 09:35] LABS: Basophils # 0.1 10^3/uL (0.0-0.1); Basophils % 1.3 %; Eosinophils # 0.5 10^3/uL (0.0-0.8); Eosinophils % 9.3 %; Hematocrit 54.3 % (42.0-52.0); Hemoglobin 18.4 g/dL (11.7-16.6); Lymphocytes # 1.2 10^3/uL (0.8-4.8); Lymphocytes % 21.8 %; Mean Corpuscular HGB Conc 33.9 g/dL (30.0-36.0); Mean Corpuscular Volume 91.4 fl (80-94); Mean Platelet Volume 9.8 fL (7.4-10.4); Monocytes # 0.5 10^3/uL (0.2-0.9); Monocytes % 9.5 %; Neutrophils # 3.16 10^3/uL (1.8-7.7); Neutrophils % 57.7 %; Nucleated Red Blood Cells % 0 %; Platelet Count 170 10^3/cmm (130-400); Red Blood Count 5.94 10^6/uL (4.1-5.3); Red Cell Distribution Width 13.2 % (12.1-15.1); White Blood Count 5.5 10^3/uL (4.0-10.0)
[2021-02-07 10:08] LABS: Alanine Aminotransferase 13 U/L (0-41); Albumin Level 4.2 g/dL (3.5-5.2); Alkaline Phosphatase 40 IU/L (40-130); Anion Gap 16.3 (5-19); Aspartate Amino Transferase 12 U/L (0-40); Blood Urea Nitrogen 23 mg/dL (8-23); Calcium 9.3 mg/dL (8.5-10.5); Carbon Dioxide 23 mmol/L (22-29); Chloride 100 mmol/L (98-107); Globulin 2.6 g/dL (1.3-4.6); Glucose 255 mg/dL (65-115); Osmolality Calculated 292 mOsm/kg (285-295); Potassium 4.3 mmol/L (3.5-5.1); Sodium 135 mmol/L (136-145); Thyroid Stimulating Hormone 4.97 uIU/mL (0.27-4.20); Total Bilirubin 0.8 mg/dL (0.15-1.2); Total Protein 6.8 g/dL (6.6-8.7)
[2021-02-07] MEDS: sodium chloride 0.9% 250 ML 125 ML IV (11:33)
--- NOTE | 2021-02-07 19:52 | ONC FU_ITS ---
Dr. Chadwick Patient Follow-Up Note Patient: Lynnette Sevilla Unit #: [id number]: [id number] Dicatated By: Shorty Chadwick M.D.Date of Visit:Feb 07, 2021 Onc Med Follow-up/Prog Note Chief Complaint: Hemochromatosis/lung cancer. 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 His disease was stage IB (T2a, N0, M0) at initial diagnosis, but with subsequent progression to stage TIGIST (M1b). He also has hereditary hemochromatosis. In February [address] Tyler with persistent cough. His evaluation included chest CT on 03/04/2017. It showed a spiculated density in the medial aspect of the anterior segment of the right upper lobe. It measured 1.8 x 2.4 x 1.8 cm and it was new compared to a previous study from November 2013. There was no associated mediastinal or hilar adenopathy, and there was no evidence of liver or adrenal metastases. He underwent bronchoscopy on 04/06/2017. There were no endobronchial lesions identified. The lesion was found to be avid by PET/CT. There was no evidence of metastatic involvement. He underwent right upper lobectomy with mediastinal lymph node biopsy on 04/29/2017. Pathology showed low-grade (grade 1-2) adenocarcinoma measuring 3.2 x 2.4 cm. There was penetration into visceral pleura and there was evidence of lymphovascular space invasion. The margins of resection were free, and there was no involvement in 1 mediastinal lymph node, in 1 lymph node at the right mainstem bronchus, and in 2 hilar lymph nodes. He has continued on observation/expectant management following the surgery, as there appeared to be no indication for adjuvant chemotherapy. I had initially seen him in October 2012 in regard to elevated hemoglobin/hematocrit levels and elevated serum iron. His evaluation at that time showed his hemoglobin elevated at 18.1 g with hematocrit 52%. White count and platelet count were normal. The serum iron was in the upper normal range at 145 mcg/dL with transferrin saturation 30.8%. The serum ferritin, though, was elevated at 606 ng/mL. He had additional evaluation including an erythropoietin level which was in the normal range at 12 mIU/mL. A MICHAEL 2 gene mutation study was negative. The HFE gene analysis showed double heterozygosity for the C282Y and the H63D mutations, consistent with hereditary hemochromatosis. He has been managed on a phlebotomy program. Surveillance chest CT on 12/07/2018 showed stable postoperative changes from prior right upper lobectomy. There was long-term stability of left upper lower lobe nodules. There was chronic emphysema. There was no evidence for recurrent or metastatic neoplastic process. He continued observation/expectant management for the lung cancer. He had then presented to Dr. Tyler's office with swelling and redness in the left arm, in the area of the antecubital fossa. Venous Doppler of the left arm on 02/11/2019 showed extensive occlusive thrombus in the left basilic vein. All other veins of the left upper extremity appeared free of thrombus. He was started on anticoagulation with apixaban. He was seen here for follow-up on 02/25/2019. He then had a restaging PET/CT on 03/10/2019. It showed interval development of abnormal activity in a lytic lesion in the left femoral neck, suspicious for metastatic disease. There was interval resolution of the small right upper lobe lung mass. There were no other areas of abnormal uptake on that study. With those findings, he was referred to Dr. Chin. On 03/17/2019 he underwent prophylactic open reduction with interval fixation of the left hip. Pathology on the bone fragments did confirm metastatic carcinoma consistent with the previous diagnosis of pulmonary infiltrating adenocarcinoma. Following recovery from the surgery he was seen by Dr. Boggs for palliative radiation. He completed treatment on 04/18/2019 to a total dose of 3900 cGy. He tolerated the treatment well. In the meantime, I had also requested a next generation sequencing study. It was performed on the original lung tumor, as the specimen from the left femur was insufficient for analysis. That study showed low PD-L1 expression at 7%. The mutation burden, though, was high. The tumor was negative for EGFR, BRAF, and KRAS mutations, and it also tested negative for the ALK and ROS1 rearrangements. The NTRK fusion also was not detected. I had seen him for a follow-up visit on 05/02/2019. He had restaging CT scans on 06/01/2019 showed no evidence for recurrent disease in the chest, abdomen, or pelvis. In the setting of a treated, solitary metastasis, he was recommended to continue on observation/expectant management. On 06/28/2019 he was seen in the emergency room with complaints of dizziness. CT of the head with and without contrast showed no acute findings. He was diagnosed with vestibular neuronitis. On 07/04/2019 he was admitted to the hospital after returning to the emergency room with acute mental status changes. His repeat head CT showed a 10 mm focal area of low-attenuation in the left frontal lobe which appeared new from the recent study. Was felt to possibly represent a subacute infarct. Further evaluation with brain MRI showed multifocal patchy areas of acute ischemia involving the YUNG territories bilaterally. The largest area of ischemia measured approximately 1 cm. There was no evidence of mass-effect or midline shift. The clinical presentation appeared most consistent with cancer related hypercoagulability. As it occurred while on a therapeutic dose of apixaban, his anticoagulation was transitioned to therapeutic Lovenox. His echocardiogram showed normal left ventricular cavity size and systolic function with estimated ejection fraction at 60%. There were no significant valvular abnormalities noted. There appeared to be no significant change compared to her previous study from July 2018. His bilateral carotid Doppler studies showed just moderate atheromatous plaque bilaterally. Head MRA showed no evidence of high-grade proximal stenosis or aneurysm. He was discharged to [facility] for rehab. At that point, he was still having significant expressive aphasia, but his confusion had improved significantly. He subsequently was able to return home. Restaging CT scans of the chest, abdomen, and pelvis on 07/25/2019 showed stable 5 mm noncalcified pulmonary nodule in the left upper lobe and a 3 mm noncalcified nodule in the left lower lobe. There was no mediastinal or hilar adenopathy. A few scattered hypodensities throughout the liver are too small to characterize but similar to prior studies. A new 7 mm hypodensity was noted in the lower pole of the right kidney. There was increased density within the lumen of a contracted gallbladder, suspicious for stones and/or chronic cholecystitis. There was no osteoblastic or osteolytic bone disease identified. On 08/03/2019 he was seen in the emergency room with dizziness. He has repeat noncontrast head CT showed atrophy and chronic deep white matter ischemic change with no acute intracranial abnormality identified. He was diagnosed with vertigo and treated with meclizine. I had seen him for a follow-up visit on 08/08/2019. He had opted to stop the Lovenox injections, and he had restarted anticoagulation with apixaban. He also was taking Plavix. He was still having some difficulty with his speech and he was having some confusion at times and some difficulty with memory. Subsequent to that visit, his had called and reported that his memory and confusion were continuing to worsen. A repeat brain MRI on 08/23/2019 showed multifocal areas of abnormal diffusion abnormalities and flair signal abnormalities. It was noted to predominantly involve the left hippocampal formation with additional more focal diffusion signal abnormalities extending towards the temporal occipital junction posteriorly. That finding appeared to be most consistent with worsening subacute infarcts. Also noted, though, were additional cortical areas of very subtle enhancement throughout the brain which were suspicious for metastatic lesions. The most concerning were in the left frontal vertex. With those findings, I was able to get his anticoagulation transition back to Lovenox. A repeat PET/CT on 09/01/2019 showed interval development of a small well-circumscribed lytic lesion in the upper femoral neck on the right measuring up to 19 mm with SUV 7.3. A small amount of fracture was noted along the posterior upper border of the left greater trochanter. Abnormal increased activity was noted along the site of the previous suspected metastatic lesion in the left femoral neck with a maximum SUV 6.2, similar to the previous study. There were no other areas of significant abnormal activity identified. Given the PET/CT findings, he was then given palliative radiation to the right hip, completed on 09/28/2019 to a total dose of 3000 cGy. He tolerated the treatment well. In the meantime, a repeat brain MRI on 09/16/2019 again showed numerous bilateral multi lobar acute lacunar infarcts. The previously described areas of enhancement are felt to most likely be related to ischemia and not to metastatic disease. At that time there was felt to be no convincing evidence for metastatic disease. I had seen him for a follow-up visit on 03/2020. At that point he was beginning to show some recovery. I had discussed options for further treatment of the lung cancer. It was quite clear that he was not interested in attempting any chemotherapy. He did agree to continue anticoagulation with Lovenox, and ultimately he also agreed to a trial of immunotherapy. His other medical illnesses include hypertension, hyperlipidemia, type 2 diabetes, coronary artery disease, peripheral vascular disease, and degenerative arthritis. He underwent coronary artery bypass surgery in 1996 and he underwent an arterial bypass procedure to the right leg in 1999. In 2013 he was found to have significant hypoxemia. On evaluation he was found to have COPD and obstructive sleep apnea. 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 Also noted was calcific plaque at the origins of the common iliac arteries at 54% on the left and 60% on the right. He has a history of smoking 1-1 1/2 packs of cigarettes daily, but he quit smoking in 1996. INTERIM HISTORY: On 11/09/2019 he began a trial of immunotherapy with pembrolizumab as a single modality. He tolerated the initial infusion of pembrolizumab with no adverse effects, and he then continued treatment at 3-week intervals. As of 02/22/2020 he completed his 6th cycle. At his follow-up visit on 03/14/2020 he had developed a significant skin eruption on his trunk, mainly the back. With that finding, had stopped both the pembrolizumab and the denosumab, I also had him start prednisone, initially at 20 mg daily. The prednisone was later reduced to 10 mg daily, as the skin eruption was resolving. He was able to restart pembrolizumab on 03/28/2020. I opted to keep the denosumab on hold, as I felt it was the more likely cause for the eruption. He then continued his pembrolizumab infusions every 3 weeks. He completed his cycle 14 on 09/13/2020. Restaging CT scans of the chest, abdomen, and pelvis on 10/02/2020 showed no evidence of disease progression. There were mild chronic emphysematous changes noted. He continued his pembrolizumab infusions every 3 weeks. As of 01/17/2021 he completed his 20th cycle. He is seen for a follow-up visit. He says he has been feeling all right. His main complaint is that the pain in his hips keeps getting worse all the time. The pain is in the posterior hip area on both sides and it is worse with activity. He has just a little bit of back pain. He says his energy could be better, but he is doing light work. ECOG score is 1. He has good appetite. He has no fever or night sweats. He has not had sore mouth or throat. He does cough to clear up phlegm. He has some shortness of breath, and he is using oxygen as needed. He does not complain of chest pain. He has no GI complaints other than some mild constipation. He has frequent urination. He does not complain of headache. He does have episodes of dizziness/dysequilibrium. He appears to have at least some component of positional vertigo. He has no focal neurologic symptoms. Medications: Acetaminophen Extra Strength 1 (500 mg) Tablet Oral b.i.d., amLODIPine Besylate 0.5 Tablet (of 5 mg) Oral at bedtime, B-12 1 Tablet (of 1000 mcg) Tablet Oral daily, Bisacodyl 1 Tablet (of 5 mg) Tablet, enteric coated Oral daily PRN, Carvedilol 1 (25 mg) Tablet Oral b.i.d., Cholecalciferol 1 Capsule (of 2000 Units) Oral daily, Dulcolax Milk of Magnesia 30 mL (of 400 mg/5mL) Suspension Oral daily PRN, Enoxaparin Sodium 80 mg (of 300 mg/3mL) Injection b.i.d., Famotidine 1 Tablet (of 20 mg) Oral b.i.d. PRN, Fish Oil 1 (1200 mg) Capsule Oral daily, Flonase Suspension Nasal, Gabapentin 1 Tablet (of 300 mg) Oral daily, Hydrocodone-Acetaminophen 1 (5-325 mg) Tablet Oral four times a day PRN, Jardiance 0.5 Tablet (of 12.5 ) Oral daily, Lovastatin 1 Tablet (of 40 mg) Oral b.i.d., Meclizine HCl 1 Tablet (of 25 mg) Oral daily PRN, MetFORMIN HCl 1 Tablet (of 500 mg) Oral b.i.d., Plavix 1 (75 mg) Tablet Oral daily, Spiriva Respimat Aerosol, solution Inhalation, Tamsulosin HCl 1 (0.4 mg) Capsule Oral daily Allergies: PENICILLIN AND ALEVE Vital Signs: Performed on Feb 07, 2021 10:53 Height - 65.00 in Weight - 176.6 lbs (LOW) BSA - 1.88 sq.m BMI - 29.39 Temperature - 96.6 F (LOW) Pulse - 66 /min Respiration - 18 /min BP - 128/71 mm(hg) O2 Sat - 92 % (LOW) Pain - 5 Fatigue - 4 Physical Examination: Constitutional - He looks pretty good generally, Eyes - Sclerae nonicteric. Conjunctivae clear, ENMT - No lesions noted in the oral cavity, Hematologic/Lymphatic - No cervical, clavicular, or axillary adenopathy, Respiratory - Lungs sound clear with some decrease in air movement bilaterally, Cardiovascular - Heart rhythm is regular. There is no murmur, gallop, or rub noted, Abdomen - Soft. There is mild tenderness associated with his Lovenox injection sites. Liver and spleen are not enlarged. There is no abdominal mass or ascites noted and there is no inguinal adenopathy, Extremities - No edema, Neurologic - No focal neurologic deficits noted. Lab/Imaging: Test performed on Feb 07, 2021 09:10 Sodium 135 mmol/L TSH 4.97 uIU/mL Potassium 4.3 mmol/L Chloride 100 mmol/L CO2 23 mmol/L Anion Gap 16.3 BUN 23 mg/dL Creatinine 1.0 mg/dL Cr Clearance (Est) 68.98 mL/min Glucose 255 mg/dL Osmolality - Calculated 292 mOsm/kg Calcium 9.3 mg/dL Protein, Total 6.8 g/dL Albumin 4.2 g/dL Globulin 2.6 g/dL Bilirubin, Total 0.8 mg/dL ALT (SGPT) 13 U/L AST (SGOT) 12 U/L Alkaline Phosphatase 40 IU/L WBC 5.5 10 3/uL RBC 5.94 10 6/uL HGB 18.4 g/dL HCT 54.3 % MCV 91.4 fl MCH 31.0 pg MCHC 33.9 g/dL RDW 13.2 % Platelet Count 170 10 3/cmm MPV 9.8 fL Neutrophils 3.16 10 3/uL Lymphocytes 1.2 10 3/uL Monocytes 0.5 10 3/uL Eosinophils 0.5 10 3/uL Basophils 0.1 10 3/uL Neutrophil % 57.7 % Lymphocyte % 21.8 % Monocyte % 9.5 % Eosinophil % 9.3 % Basophils % 1.3 % NRBC % 0 % Problem List: 1. Nonsmall cell cancer (low-grade adenocarcinoma) involving the upper lobe of the right lung, stage IB (T2a, N0, M0). He underwent right upper lobectomy with mediastinal lymph node biopsy on 04/29/2017. He had subsequent progression to stage IVB (M1c) with multiple sites of metastatic bone involvement. 2. A next generation sequencing study on his primary lung tumor showed low PD-L1 expression at 7%. The mutation burden was high. There were no actionable mutations identified. 3. 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 4. He has hereditary hemochromatosis. He was found to be doubly heterozygous for the C282Y and the H63D mutations. He has had a very good response to phlebotomy, with his subsequent ferritin levels maintained at less than 50 ng/mL compared to a pretreatment level of greater than 600. 5. He has underlying lung disease including COPD and obstructive sleep apnea, and he has associated chronic hypoxia. 6. Hypertension. 7. Hyperlipidemia. 8. Type II diabetes. 9. Coronary artery disease. 10. Peripheral arterial disease. 11. Degenerative arthritis. Problems Addressed with this Encounter and Plan: 1. Patient with nonsmall cell cancer (low-grade adenocarcinoma) involving the upper lobe of the right lung, stage IB (T2a, N0, M0). He underwent right upper lobectomy with mediastinal lymph node biopsy on 04/29/2017. He had subsequent progression to stage IVB (M1c) with multiple sites of metastatic bone involvement. A next generation sequencing study on his primary lung tumor showed low PD-L1 expression at 7%. The mutation burden was high. There were no actionable mutations identified. His restaging PET/CT on 03/10/2019 showed evidence of a single site of metastatic disease in the form of a lytic bone lesion in the left femoral neck. He underwent prophylactic ORIF of the left hip on 03/17/2019. Pathology confirmed metastatic adenocarcinoma. Following recovery from the surgery, he was seen by Dr. Boggs for palliative radiation. He completed treatment on 04/18/2019 to a total dose of 3900 cGy. A repeat PET/CT on 09/01/2019 showed a new small metastatic lesion in the right proximal femur. There was residual activity at the site of the metastatic lesion in the left femur. There were no other areas of abnormal activity noted on that study. He was then given palliative radiation to the right hip, completed on 09/28/2019 to a total dose of 3000 cGy. On 11/09/2019 he began a trial of immunotherapy with pembrolizumab. He tolerated the initial infusion of pembrolizumab with no adverse effects, and he then continued treatment at 3-week intervals. During that time he also began denosumab injections for the metastatic bone involvement. As of his follow-up visit on 03/14/2020 both the pembrolizumab and the denosumab were put on hold to development of skin eruption. The eruption gradually resolved on steroid therapy, and he was able to resume pembrolizumab on 03/28/2020. He was able to taper off prednisone, but with some persistent itching on his back, which he was able manage topically with CeraVe. He had otherwise tolerated treatment well. His restaging CT scans on 06/18/2020 showed no evidence of metastatic disease. He then continued treatment with pembrolizumab at 3-week intervals. His restaging CT scans on 10/02/2020 showed no evidence of disease progression, and he continued his same treatment. He has since then continued to complain of dizziness, and he has had ongoing problems with memory. Overall he is still been doing pretty well clinically. However, he is now reporting some increasing pain in the posterior hip area on both sides. As such, he will be scheduled for restaging evaluation with bone scan and with CT scans of the chest, abdomen, and pelvis. He will have further evaluation as indicated. In the meantime, though, he will continue with cycle 21 of pembrolizumab at 200 mg by IV infusion. He will tentatively be scheduled to return for treatment in 3 weeks and for a follow-up visit in 6 weeks. 2. 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 He continues anticoagulation with Lovenox. Signed By: Shorty Chadwick M.D. <<Signature on File>>
== END 2021-02-07 08:50 | disposition home or self-care (01) ==
PROVIDERS: PCP Nurse Practitioner Family; Visit Provider Internal Medicine Medical Oncology
DX: Z51.12 Encounter for antineoplastic immunotherapy (principal); C34.11 Malignant neoplasm of upper lobe, right bronchus or lung; C79.51 Secondary malignant neoplasm of bone; E83.110 Hereditary hemochromatosis; I82.409 Acute embolism and thrombosis of unspecified deep veins of unspecified lower extremity; Z92.3 Personal history of irradiation
CPT/HCPCS: 80053; 84443; 85025; 96413; 99214; J7050; J9271

== ENCOUNTER 2021-02-18 07:36 | Outpatient (CLI) | payer MEDICARE, SELFPAY ==
--- NOTE | 2021-02-18 07:52 | CT_ITS ---
WS: [id number] CT CHEST, ABDOMEN AND PELVIS WITH CONTRAST HISTORY: LUNG CA TECHNIQUE: Contiguous 5 mm axial imaging performed through the chest, abdomen and pelvis with IV cont rast, oral contrast has been provided. Coronal and sagittal reformats chest. Coronal and sagittal ref ormats through the abdomen and pelvis. All CT scans at [facility] use at least one of the se dose optimization techniques: automated exposure control; mA and/or kV adjustment per patient size (includes targeted exams where dose is matched to clinical indication); or iterative reconstruction. CONTRAST: Omnipaque 300; 95 mL IV. DLP: 1578.26 mGy.cm COMPARISON: 10/02/[address]: Status post RIGHT upper lobectomy. Mild to moderate diffuse emphysematous changes. Mild int erstitial thickening bilaterally. 5 mm nodule LEFT upper lobe, image 22 of series 5 has been stable f or several years. No new mass or nodule. Very minimal groundglass attenuation at the LEFT lung base. No recurrent mass at the RIGHT hilum. Moderate atherosclerosis aorta and proximal great vessels. Norm al size pulmonary artery. No mediastinal or hilar adenopathy. Prior CABG. Abdomen CT: Mild diffuse hepatic steatosis. There are several cysts within the liver which are stable . No solid mass. Cholelithiasis without acute cholecystitis. Spleen and pancreas are normal. No adren al mass. Extensive atherosclerosis within the abdominal aorta. Heavy calcification extends into the s uperior mesenteric artery. Kidneys are normally enhancing with mild perinephric stranding. No obstruc tion or solid mass. No ascites or adenopathy. Diffuse constipation and fecal retention. Sigmoid diverticular disease without acute diverticulitis. Pelvic CT: Moderately well distended urinary bladder. Mild bladder wall thickening. No adjacent adeno elizabeth or free fluid in the pelvis. RIGHT inguinal canal is patent and contains fat only. Hardware in the RIGHT hip from prior ORIF. Rib deformities in the RIGHT thorax probably from prior montes rgery. CT/CT chest abd pel w con* IMPRESSION: 1. Status post RIGHT upper lobectomy and prior CABG. 2. Mild to moderate chronic emphysema. No evidence for recurrent neoplasm or a denopathy. 3. Hepatic cysts. 4. Constipation and sigmoid diverticular disease without acute diverticulitis. 5. No metastatic disease to the liver or adrenal glands. 6. Cholelithiasis without acute cholecystitis.
--- NOTE | 2021-02-18 07:52 | NM_ITS ---
WS: [id number] NUCLEAR MEDICINE WHOLE BODY BONE SCAN HISTORY: LUNG CA/PAIN IN BOTH HIPS COMPARISON: CTs 02/18/2021, 10/02/[address] 09/01/2019. TECHNIQUE: The patient was injected with 27.3 mCi of Technetium 99m HDP and serial whole-body scintig velma have been performed with anterior and posterior images. Moderate curvilinear increased uptake involving the LEFT femoral neck extending into the proximal hip . There is also a prior LEFT hip gamma nail and proximal intramedullary marco a. Facet joint arthritis is moderate uptake at L5. Focal area of increased uptake involving the anterior LEFT lower thorax. This corresponds to a rib lesion with mild hyperexpansion that was negative on a prior PET/CT. Normal soft tissue uptake. NM/NM bone scan whole body* [id number] IMPRESSION: 1. Moderate increased uptake involving the LEFT femoral neck. There is also a superimposed gamma nail and proximal intramedullary femoral marco a. New fracture i s present despite the intramedullary rodding. Favor this may be an insufficienc y fracture. 2. Facet joint arthritis at L5. Notified Shorty Chadwick MD at 02/18/2021 11:28 AM.
[2021-02-18] MEDS: iohexol 300 mg/mL 100 mL Btl IV (09:30)
[2021-02-18] MEDS: iohexol 300 mg/mL 50 mL Btl PO (09:30)
--- NOTE | 2021-02-18 10:51 | XR_ITS ---
WS: [id number] LEFT HIP HISTORY: BONE SCAN COMPARISON COMPARISON: 03/31/[address] 02/18/2021 LEFT hip: Focal area of sclerosis involving the femoral neck in the medial curvature of the femoral n leo extending into the proximal femur. This area of increased sclerosis is new. There is a tiny break which is nondisplaced and along the medial curvature of the femoral neck. Findings suspicious for a new fracture despite the gamma nail and short intramedullary marco a in the LEFT femur. XR/XR hip LT 2-3V wo/w pel* [id number] IMPRESSION: 1. Highly suspicious for femoral neck fracture involving the area of increased sclerosis. Corresponds to the bone scan finding and probably represents suffic iency fracture. 2. Status post gamma nail and proximal intramedullary femoral marco a. This fractu re appears new since the hardware placement.
== END 2021-02-18 07:37 | disposition home or self-care (01) ==
PROVIDERS: PCP Nurse Practitioner Family; Visit Provider Internal Medicine Medical Oncology
DX: C34.11 Malignant neoplasm of upper lobe, right bronchus or lung (principal); M25.551 Pain in right hip; M25.552 Pain in left hip; K80.20 Calculus of gallbladder without cholecystitis without obstruction; K59.00 Constipation, unspecified; K57.30 Diverticulosis of large intestine without perforation or abscess without bleeding; K76.89 Other specified diseases of liver; J43.9 Emphysema, unspecified; Z90.2 Acquired absence of lung [part of]; Z95.1 Presence of aortocoronary bypass graft
CPT/HCPCS: 71260; 73502; 74177; 78306; A9561

== ENCOUNTER 2021-02-28 14:56 | Outpatient (CLI) | payer MEDICARE, SELFPAY | END 2021-02-28 14:57 | disposition home or self-care (01) | LOC: ONCMED 14:58 | PROVIDERS: PCP Nurse Practitioner Family; Visit Provider Internal Medicine Medical Oncology | DX: Z51.12 Encounter for antineoplastic immunotherapy (principal); C79.51 Secondary malignant neoplasm of bone; C34.11 Malignant neoplasm of upper lobe, right bronchus or lung; Z79.899 Other long term (current) drug therapy | CPT/HCPCS: 96413; J7050; J9271 ==

== ENCOUNTER 2021-03-21 07:59 | Outpatient (CLI) | payer MEDICARE, SELFPAY ==
[2021-03-21 09:14] LABS: Basophils # 0.1 10^3/uL (0.0-0.1); Eosinophils # 0.4 10^3/uL (0.0-0.8); Eosinophils % 5.9 %; Hematocrit 58.6 % (42.0-52.0); Lymphocytes # 1.3 10^3/uL (0.8-4.8); Lymphocytes % 21.1 %; Mean Corpuscular HGB Conc 32.4 g/dL (30.0-36.0); Mean Corpuscular Hemoglobin 30.2 pg (28.0-34.0); Mean Corpuscular Volume 93.2 fl (80-94); Mean Platelet Volume 9.8 fL (7.4-10.4); Monocytes # 0.7 10^3/uL (0.2-0.9); Monocytes % 10.7 %; Neutrophils # 3.69 10^3/uL (1.8-7.7); Nucleated Red Blood Cells % 0 %; Platelet Count 175 10^3/cmm (130-400); Red Blood Count 6.29 10^6/uL (4.1-5.3); Red Cell Distribution Width 13.4 % (12.1-15.1); White Blood Count 6.1 10^3/uL (4.0-10.0)
[2021-03-21 09:48] LABS: Alanine Aminotransferase 12 U/L (0-41); Albumin Level 4.3 g/dL (3.5-5.2); Alkaline Phosphatase 39 IU/L (40-130); Anion Gap 18.8 (5-19); Aspartate Amino Transferase 12 U/L (0-40); Blood Urea Nitrogen 28 mg/dL (8-23); Calcium 9.8 mg/dL (8.5-10.5); Carbon Dioxide 20 mmol/L (22-29); Chloride 98 mmol/L (98-107); Globulin 2.7 g/dL (1.3-4.6); Glucose 216 mg/dL (65-115); Osmolality Calculated 286 mOsm/kg (285-295); Potassium 4.8 mmol/L (3.5-5.1); Sodium 132 mmol/L (136-145); Thyroid Stimulating Hormone 5.12 uIU/mL (0.27-4.20); Total Bilirubin 0.7 mg/dL (0.15-1.2)
[2021-03-21 11:53] LABS: Ferritin 112 ng/mL (30-400); Iron 105 ug/dL (59-158)
[2021-03-21 12:29] LABS: Percent Saturation 29.4 % (20-50); Total Iron Binding Capacity 356 mcg/dl; Unsaturated Iron Binding 251 ug/dL (112-347)
--- NOTE | 2021-03-21 19:51 | ONC FU_ITS ---
Dr. Chadwick Patient Follow-Up Note Patient: Lynnette Sevilla Unit #: [id number]: [id number] Dicatated By: Shorty Chadwick M.D.Date of Visit:Mar 21, 2021 Onc Med Follow-up/Prog Note Chief Complaint: Hemochromatosis/lung cancer. 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 His disease was stage IB (T2a, N0, M0) at initial diagnosis, but with subsequent progression to stage TIGIST (M1b). He also has hereditary hemochromatosis. In February [address] Tyler with persistent cough. His evaluation included chest CT on 03/04/2017. It showed a spiculated density in the medial aspect of the anterior segment of the right upper lobe. It measured 1.8 x 2.4 x 1.8 cm and it was new compared to a previous study from November 2013. There was no associated mediastinal or hilar adenopathy, and there was no evidence of liver or adrenal metastases. He underwent bronchoscopy on 04/06/2017. There were no endobronchial lesions identified. The lesion was found to be avid by PET/CT. There was no evidence of metastatic involvement. He underwent right upper lobectomy with mediastinal lymph node biopsy on 04/29/2017. Pathology showed low-grade (grade 1-2) adenocarcinoma measuring 3.2 x 2.4 cm. There was penetration into visceral pleura and there was evidence of lymphovascular space invasion. The margins of resection were free, and there was no involvement in 1 mediastinal lymph node, in 1 lymph node at the right mainstem bronchus, and in 2 hilar lymph nodes. He has continued on observation/expectant management following the surgery, as there appeared to be no indication for adjuvant chemotherapy. I had initially seen him in October 2012 in regard to elevated hemoglobin/hematocrit levels and elevated serum iron. His evaluation at that time showed his hemoglobin elevated at 18.1 g with hematocrit 52%. White count and platelet count were normal. The serum iron was in the upper normal range at 145 mcg/dL with transferrin saturation 30.8%. The serum ferritin, though, was elevated at 606 ng/mL. He had additional evaluation including an erythropoietin level which was in the normal range at 12 mIU/mL. A MICHAEL 2 gene mutation study was negative. The HFE gene analysis showed double heterozygosity for the C282Y and the H63D mutations, consistent with hereditary hemochromatosis. He has been managed on a phlebotomy program. Surveillance chest CT on 12/07/2018 showed stable postoperative changes from prior right upper lobectomy. There was long-term stability of left upper lower lobe nodules. There was chronic emphysema. There was no evidence for recurrent or metastatic neoplastic process. He continued observation/expectant management for the lung cancer. He had then presented to Dr. Tyler's office with swelling and redness in the left arm, in the area of the antecubital fossa. Venous Doppler of the left arm on 02/11/2019 showed extensive occlusive thrombus in the left basilic vein. All other veins of the left upper extremity appeared free of thrombus. He was started on anticoagulation with apixaban. He was seen here for follow-up on 02/25/2019. He then had a restaging PET/CT on 03/10/2019. It showed interval development of abnormal activity in a lytic lesion in the left femoral neck, suspicious for metastatic disease. There was interval resolution of the small right upper lobe lung mass. There were no other areas of abnormal uptake on that study. With those findings, he was referred to Dr. Chin. On 03/17/2019 he underwent prophylactic open reduction with interval fixation of the left hip. Pathology on the bone fragments did confirm metastatic carcinoma consistent with the previous diagnosis of pulmonary infiltrating adenocarcinoma. Following recovery from the surgery he was seen by Dr. Boggs for palliative radiation. He completed treatment on 04/18/2019 to a total dose of 3900 cGy. He tolerated the treatment well. In the meantime, I had also requested a next generation sequencing study. It was performed on the original lung tumor, as the specimen from the left femur was insufficient for analysis. That study showed low PD-L1 expression at 7%. The mutation burden, though, was high. The tumor was negative for EGFR, BRAF, and KRAS mutations, and it also tested negative for the ALK and ROS1 rearrangements. The NTRK fusion also was not detected. I had seen him for a follow-up visit on 05/02/2019. He had restaging CT scans on 06/01/2019 showed no evidence for recurrent disease in the chest, abdomen, or pelvis. In the setting of a treated, solitary metastasis, he was recommended to continue on observation/expectant management. On 06/28/2019 he was seen in the emergency room with complaints of dizziness. CT of the head with and without contrast showed no acute findings. He was diagnosed with vestibular neuronitis. On 07/04/2019 he was admitted to the hospital after returning to the emergency room with acute mental status changes. His repeat head CT showed a 10 mm focal area of low-attenuation in the left frontal lobe which appeared new from the recent study. Was felt to possibly represent a subacute infarct. Further evaluation with brain MRI showed multifocal patchy areas of acute ischemia involving the YUNG territories bilaterally. The largest area of ischemia measured approximately 1 cm. There was no evidence of mass-effect or midline shift. The clinical presentation appeared most consistent with cancer related hypercoagulability. As it occurred while on a therapeutic dose of apixaban, his anticoagulation was transitioned to therapeutic Lovenox. His echocardiogram showed normal left ventricular cavity size and systolic function with estimated ejection fraction at 60%. There were no significant valvular abnormalities noted. There appeared to be no significant change compared to her previous study from July 2018. His bilateral carotid Doppler studies showed just moderate atheromatous plaque bilaterally. Head MRA showed no evidence of high-grade proximal stenosis or aneurysm. He was discharged to [facility] for rehab. At that point, he was still having significant expressive aphasia, but his confusion had improved significantly. He subsequently was able to return home. Restaging CT scans of the chest, abdomen, and pelvis on 07/25/2019 showed stable 5 mm noncalcified pulmonary nodule in the left upper lobe and a 3 mm noncalcified nodule in the left lower lobe. There was no mediastinal or hilar adenopathy. A few scattered hypodensities throughout the liver are too small to characterize but similar to prior studies. A new 7 mm hypodensity was noted in the lower pole of the right kidney. There was increased density within the lumen of a contracted gallbladder, suspicious for stones and/or chronic cholecystitis. There was no osteoblastic or osteolytic bone disease identified. On 08/03/2019 he was seen in the emergency room with dizziness. He has repeat noncontrast head CT showed atrophy and chronic deep white matter ischemic change with no acute intracranial abnormality identified. He was diagnosed with vertigo and treated with meclizine. I had seen him for a follow-up visit on 08/08/2019. He had opted to stop the Lovenox injections, and he had restarted anticoagulation with apixaban. He also was taking Plavix. He was still having some difficulty with his speech and he was having some confusion at times and some difficulty with memory. Subsequent to that visit, his had called and reported that his memory and confusion were continuing to worsen. A repeat brain MRI on 08/23/2019 showed multifocal areas of abnormal diffusion abnormalities and flair signal abnormalities. It was noted to predominantly involve the left hippocampal formation with additional more focal diffusion signal abnormalities extending towards the temporal occipital junction posteriorly. That finding appeared to be most consistent with worsening subacute infarcts. Also noted, though, were additional cortical areas of very subtle enhancement throughout the brain which were suspicious for metastatic lesions. The most concerning were in the left frontal vertex. With those findings, I was able to get his anticoagulation transition back to Lovenox. A repeat PET/CT on 09/01/2019 showed interval development of a small well-circumscribed lytic lesion in the upper femoral neck on the right measuring up to 19 mm with SUV 7.3. A small amount of fracture was noted along the posterior upper border of the left greater trochanter. Abnormal increased activity was noted along the site of the previous suspected metastatic lesion in the left femoral neck with a maximum SUV 6.2, similar to the previous study. There were no other areas of significant abnormal activity identified. Given the PET/CT findings, he was then given palliative radiation to the right hip, completed on 09/28/2019 to a total dose of 3000 cGy. He tolerated the treatment well. In the meantime, a repeat brain MRI on 09/16/2019 again showed numerous bilateral multi lobar acute lacunar infarcts. The previously described areas of enhancement are felt to most likely be related to ischemia and not to metastatic disease. At that time there was felt to be no convincing evidence for metastatic disease. I had seen him for a follow-up visit on 03/2020. At that point he was beginning to show some recovery. I had discussed options for further treatment of the lung cancer. It was quite clear that he was not interested in attempting any chemotherapy. He did agree to continue anticoagulation with Lovenox, and ultimately he also agreed to a trial of immunotherapy. His other medical illnesses include hypertension, hyperlipidemia, type 2 diabetes, coronary artery disease, peripheral vascular disease, and degenerative arthritis. He underwent coronary artery bypass surgery in 1996 and he underwent an arterial bypass procedure to the right leg in 1999. In 2013 he was found to have significant hypoxemia. On evaluation he was found to have COPD and obstructive sleep apnea. 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 Also noted was calcific plaque at the origins of the common iliac arteries at 54% on the left and 60% on the right. He has a history of smoking 1-1 1/2 packs of cigarettes daily, but he quit smoking in 1996. INTERIM HISTORY: On 11/09/2019 he began a trial of immunotherapy with pembrolizumab as a single modality. He tolerated the initial infusion of pembrolizumab with no adverse effects, and he then continued treatment at 3-week intervals. As of 02/22/2020 he completed his 6th cycle. At his follow-up visit on 03/14/2020 he had developed a significant skin eruption on his trunk, mainly the back. With that finding, had stopped both the pembrolizumab and the denosumab, I also had him start prednisone, initially at 20 mg daily. The prednisone was later reduced to 10 mg daily, as the skin eruption was resolving. He was able to restart pembrolizumab on 03/28/2020. I opted to keep the denosumab on hold, as I felt it was the more likely cause for the eruption. He then continued his pembrolizumab infusions every 3 weeks. He completed his cycle 14 on 09/13/2020. Restaging CT scans of the chest, abdomen, and pelvis on 10/02/2020 showed no evidence of disease progression. There were mild chronic emphysematous changes noted. He continued his pembrolizumab infusions every 3 weeks. At his follow-up visit on 02/07/2021 he reported increased pain in the left hip area. Bone scan on 02/18/2021 showed moderate increased uptake involving the left femoral neck with left hip x-ray showing suspected new fracture despite the presence of intramedullary marco a. It was favored to be an insufficiency fracture. There was no other evidence of metastatic bone involvement. Restaging CT scans showed no evidence of recurrent or progressive disease in the chest, abdomen, or pelvis. In particular, there is no evidence for recurrent mass at the right hilum. A 5 mm left upper lobe nodule appeared stable. There is no evidence for metastatic involvement in the liver or adrenal glands. He is seen for a follow-up visit. He has been feeling about the same. He has limited activity due to shortness of breath, but he is able to do light work. ECOG score is 1. He has good appetite. He has no fever or night sweats. He does have some sinus drainage and cough. He is short of breath with activity. He uses oxygen as needed. He does not complain of chest pain. He has no GI/ complaints other than frequent urination. He is having pain in both hips, left worse than right. He currently has no other joint or bone pain. He does not complain of headache. He does have dizziness. He has no numbness/paresthesia or other focal neurologic symptoms. Medications: Acetaminophen Extra Strength 1 (500 mg) Tablet Oral b.i.d., amLODIPine Besylate 0.5 Tablet (of 5 mg) Oral at bedtime, B-12 1 Tablet (of 1000 mcg) Tablet Oral daily, Bisacodyl 1 Tablet (of 5 mg) Tablet, enteric coated Oral daily PRN, Carvedilol 1 (25 mg) Tablet Oral b.i.d., Cholecalciferol 1 Capsule (of 2000 Units) Oral daily, Dulcolax Milk of Magnesia 30 mL (of 400 mg/5mL) Suspension Oral daily PRN, Enoxaparin Sodium 80 mg (of 300 mg/3mL) Injection b.i.d., Famotidine 1 Tablet (of 20 mg) Oral b.i.d. PRN, Fish Oil 1 (1200 mg) Capsule Oral daily, Flonase Suspension Nasal, Gabapentin 1 Tablet (of 300 mg) Oral daily, Hydrocodone-Acetaminophen 1 (5-325 mg) Tablet Oral four times a day PRN, Jardiance 0.5 Tablet (of 12.5 ) Oral daily, Lovastatin 1 Tablet (of 40 mg) Oral b.i.d., Meclizine HCl 1 Tablet (of 25 mg) Oral daily PRN, MetFORMIN HCl 1 Tablet (of 500 mg) Oral b.i.d., Plavix 1 (75 mg) Tablet Oral daily, Spiriva Respimat Aerosol, solution Inhalation, Tamsulosin HCl 1 (0.4 mg) Capsule Oral daily Allergies: PENICILLIN AND ALEVE Vital Signs: Performed on Mar 21, 2021 10:11 Height - 65.00 in Weight - 176 lbs (LOW) BSA - 1.87 sq.m BMI - 29.29 Temperature - 96.8 F (LOW) Pulse - 68 /min BP - 158/65 mm(hg) (HIGH) O2 Sat - 68 % (LOW) Pain - 4 Physical Examination: Constitutional - He looks pretty good generally, though he does appear short of breath with effort, Eyes - Sclerae nonicteric. Conjunctivae clear, ENMT - No lesions noted in the oral cavity, Hematologic/Lymphatic - No cervical, clavicular, or axillary adenopathy, Respiratory - Lungs sound clear with some decrease in air movement bilaterally, Cardiovascular - Heart rhythm is regular. There is no murmur, gallop, or rub noted, Abdomen - Soft. Liver and spleen are not enlarged. There is no abdominal mass or ascites noted and there is no inguinal adenopathy, Extremities - No edema, Neurologic - No focal neurologic deficits noted. Lab/Imaging: Test performed on Mar 21, 2021 08:24 Ferritin 112 ng/mL Iron 105 mcg/dL Sodium 132 mmol/L TSH 5.12 uIU/mL Iron Binding Capacity (TIBC) 356 mcg/dl Potassium 4.8 mmol/L % Iron Saturation 29.4 % Chloride 98 mmol/L CO2 20 mmol/L UIBC 251 mcg/dL Anion Gap 18.8 BUN 28 mg/dL Creatinine 1.1 mg/dL Cr Clearance (Est) 62.50 mL/min Glucose 216 mg/dL Osmolality - Calculated 286 mOsm/kg Calcium 9.8 mg/dL Protein, Total 7.0 g/dL Albumin 4.3 g/dL Globulin 2.7 g/dL Bilirubin, Total 0.7 mg/dL ALT (SGPT) 12 U/L AST (SGOT) 12 U/L Alkaline Phosphatase 39 IU/L WBC 6.1 10 3/uL RBC 6.29 10 6/uL HGB 19.0 g/dL HCT 58.6 % MCV 93.2 fl MCH 30.2 pg MCHC 32.4 g/dL RDW 13.4 % Platelet Count 175 10 3/cmm MPV 9.8 fL Neutrophils 3.69 10 3/uL Lymphocytes 1.3 10 3/uL Monocytes 0.7 10 3/uL Eosinophils 0.4 10 3/uL Basophils 0.1 10 3/uL Neutrophil % 61.0 % Lymphocyte % 21.1 % Monocyte % 10.7 % Eosinophil % 5.9 % Basophils % 1.0 % NRBC % 0 % Problem List: 1. Nonsmall cell cancer (low-grade adenocarcinoma) involving the upper lobe of the right lung, stage IB (T2a, N0, M0). He underwent right upper lobectomy with mediastinal lymph node biopsy on 04/29/2017. He had subsequent progression to stage IVB (M1c) with multiple sites of metastatic bone involvement. 2. A next generation sequencing study on his primary lung tumor showed low PD-L1 expression at 7%. The mutation burden was high. There were no actionable mutations identified. 3. 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 4. He has hereditary hemochromatosis. He was found to be doubly heterozygous for the C282Y and the H63D mutations. He has had a very good response to phlebotomy, with his subsequent ferritin levels maintained at less than 50 ng/mL compared to a pretreatment level of greater than 600. 5. He has underlying lung disease including COPD and obstructive sleep apnea, and he has associated chronic hypoxia. 6. Hypertension. 7. Hyperlipidemia. 8. Type II diabetes. 9. Coronary artery disease. 10. Peripheral arterial disease. 11. Degenerative arthritis. Problems Addressed with this Encounter and Plan: 1. Patient with nonsmall cell cancer (low-grade adenocarcinoma) involving the upper lobe of the right lung, stage IB (T2a, N0, M0). He underwent right upper lobectomy with mediastinal lymph node biopsy on 04/29/2017. He had subsequent progression to stage IVB (M1c) with multiple sites of metastatic bone involvement. A next generation sequencing study on his primary lung tumor showed low PD-L1 expression at 7%. The mutation burden was high. There were no actionable mutations identified. His restaging PET/CT on 03/10/2019 showed evidence of a single site of metastatic disease in the form of a lytic bone lesion in the left femoral neck. He underwent prophylactic ORIF of the left hip on 03/17/2019. Pathology confirmed metastatic adenocarcinoma. Following recovery from the surgery, he was seen by Dr. Boggs for palliative radiation. He completed treatment on 04/18/2019 to a total dose of 3900 cGy. A repeat PET/CT on 09/01/2019 showed a new small metastatic lesion in the right proximal femur. There was residual activity at the site of the metastatic lesion in the left femur. There were no other areas of abnormal activity noted on that study. He was then given palliative radiation to the right hip, completed on 09/28/2019 to a total dose of 3000 cGy. On 11/09/2019 he began a trial of immunotherapy with pembrolizumab. He tolerated the initial infusion of pembrolizumab with no adverse effects, and he then continued treatment at 3-week intervals. During that time he also began denosumab injections for the metastatic bone involvement. As of his follow-up visit on 03/14/2020 both the pembrolizumab and the denosumab were put on hold to development of skin eruption. The eruption gradually resolved on steroid therapy, and he was able to resume pembrolizumab on 03/28/2020. He was able to taper off prednisone, but with some persistent itching on his back, which he was able manage topically with CeraVe. He had otherwise tolerated treatment well. His restaging CT scans on 06/18/2020 showed no evidence of metastatic disease. He then continued treatment with pembrolizumab at 3-week intervals. His restaging CT scans on 10/02/2020 showed no evidence of disease progression, and he continued his same treatment. He has since then continued to complain of dizziness, and he has had ongoing problems with memory. As of his follow-up visit on 02/07/2021 he was reporting some increasing pain in the posterior hip area on both sides. On restaging evaluation, he was found evidence of a fracture in the left femoral neck extending into the proximal femur. There was no indication for treatment and there was no evidence for progression of the lung cancer. As such, he will continue now with cycle 23 of pembrolizumab at 200 mg by IV infusion. He will be scheduled to return for treatment in 3 weeks and for a follow-up visit in 6 weeks. 2. 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 He continues anticoagulation with Lovenox. 3. He has hereditary hemochromatosis. His serum ferritin level is a little above target range and he does have significantly elevated hemoglobin/hematocrit levels. As such, he will have a 1 unit phlebotomy today. Signed By: Shorty Chadwick M.D. <<Signature on File>>
== END 2021-03-21 08:00 | disposition home or self-care (01) ==
PROVIDERS: PCP Nurse Practitioner Family; Visit Provider Internal Medicine Medical Oncology
DX: Z51.12 Encounter for antineoplastic immunotherapy (principal); C34.11 Malignant neoplasm of upper lobe, right bronchus or lung; E83.110 Hereditary hemochromatosis; I74.9 Embolism and thrombosis of unspecified artery; I82.409 Acute embolism and thrombosis of unspecified deep veins of unspecified lower extremity; I25.10 Atherosclerotic heart disease of native coronary artery without angina pectoris; I10 Essential (primary) hypertension; E11.9 Type 2 diabetes mellitus without complications; M19.90 Unspecified osteoarthritis, unspecified site; Z79.01 Long term (current) use of anticoagulants; Z79.899 Other long term (current) drug therapy
CPT/HCPCS: 80053; 82728; 83540; 83550; 84443; 85025; 96413; 99195; 99215; J7050; J9271

== ENCOUNTER 2021-04-11 13:46 | Outpatient (CLI) | payer MEDICARE, SELFPAY ==
[2021-04-11 16:01] LABS: Basophils % 0.8 %; Eosinophils # 0.4 10^3/uL (0.0-0.8); Eosinophils % 7.4 %; Hematocrit 51.1 % (42.0-52.0); Hemoglobin 17.5 g/dL (11.7-16.6); Lymphocytes # 1.1 10^3/uL (0.8-4.8); Lymphocytes % 22.9 %; Mean Corpuscular HGB Conc 34.2 g/dL (30.0-36.0); Mean Corpuscular Hemoglobin 31.6 pg (28.0-34.0); Mean Corpuscular Volume 92.4 fl (80-94); Mean Platelet Volume 10.3 fL (7.4-10.4); Monocytes # 0.5 10^3/uL (0.2-0.9); Neutrophils # 2.96 10^3/uL (1.8-7.7); Neutrophils % 59.5 %; Nucleated Red Blood Cells % 0 %; Platelet Count 184 10^3/cmm (130-400); Red Blood Count 5.53 10^6/uL (4.1-5.3); Red Cell Distribution Width 13.6 % (12.1-15.1)
[2021-04-11 16:30] LABS: Chol HDL Ratio 4.72 mg/dL (1.0-5.00); Cholesterol 137 mg/dL (0-200); HDL Cholesterol 29 mg/dL (60-100); Triglycerides 444 mg/dL (0-150)
[2021-04-11 17:21] LABS: LDL Cholesterol Direct 70 mg/dL (0-100)
== END 2021-04-11 13:47 | disposition home or self-care (01) ==
PROVIDERS: Internal Medicine Cardiovascular Disease; PCP Nurse Practitioner Family; Visit Provider Internal Medicine Medical Oncology
DX: Z51.12 Encounter for antineoplastic immunotherapy (principal); C34.11 Malignant neoplasm of upper lobe, right bronchus or lung; C79.51 Secondary malignant neoplasm of bone; E83.110 Hereditary hemochromatosis
CPT/HCPCS: 80061; 83721; 85025; 96413; J7050; J9271

== ENCOUNTER 2021-05-01 09:10 | Outpatient (CLI) | payer MEDICARE, SELFPAY ==
[2021-05-01 09:44] LABS: Basophils # 0.1 10^3/uL (0.0-0.1); Basophils % 0.8 %; Eosinophils # 0.6 10^3/uL (0.0-0.8); Eosinophils % 9.1 %; Hematocrit 51.3 % (42.0-52.0); Hemoglobin 17.7 g/dL (11.7-16.6); Lymphocytes # 1.2 10^3/uL (0.8-4.8); Lymphocytes % 19.1 %; Mean Corpuscular HGB Conc 34.5 g/dL (30.0-36.0); Mean Corpuscular Hemoglobin 31.3 pg (28.0-34.0); Mean Corpuscular Volume 90.6 fl (80-94); Mean Platelet Volume 9.9 fL (7.4-10.4); Monocytes # 0.6 10^3/uL (0.2-0.9); Monocytes % 10.4 %; Neutrophils # 3.69 10^3/uL (1.8-7.7); Neutrophils % 60.3 %; Nucleated Red Blood Cells % 0 %; Platelet Count 175 10^3/cmm (130-400); Red Blood Count 5.66 10^6/uL (4.1-5.3); Red Cell Distribution Width 13.8 % (12.1-15.1); White Blood Count 6.1 10^3/uL (4.0-10.0)
[2021-05-01 10:25] LABS: Alanine Aminotransferase 13 U/L (0-41); Albumin Level 4.3 g/dL (3.5-5.2); Alkaline Phosphatase 36 IU/L (40-130); Aspartate Amino Transferase 15 U/L (0-40); Blood Urea Nitrogen 21 mg/dL (8-23); Calcium 9.7 mg/dL (8.5-10.5); Carbon Dioxide 24 mmol/L (22-29); Chloride 99 mmol/L (98-107); Globulin 2.6 g/dL (1.3-4.6); Glucose 212 mg/dL (65-115); Osmolality Calculated 291 mOsm/kg (285-295); Sodium 136 mmol/L (136-145); Thyroid Stimulating Hormone 4.27 uIU/mL (0.27-4.20); Total Bilirubin 0.9 mg/dL (0.15-1.2); Total Protein 6.9 g/dL (6.6-8.7)
[2021-05-01 10:33] LABS: Anion Gap 17.7 (5-19); Potassium 4.7 mmol/L (3.5-5.1)
--- NOTE | 2021-05-18 16:19 | ONC FU_ITS ---
Manjinder Pimentel Patient Note Patient: Lynnette Sevilla Unit #: [id number]: 1940 Dictated By: Brian LovellDate of Visit: May 01, 2021 Onc MED Follow-Up/Prog Note Chief Complaint: Hemochromatosis/lung cancer. 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 His disease was stage IB (T2a, N0, M0) at initial diagnosis, but with subsequent progression to stage TIGIST (M1b). He also has hereditary hemochromatosis. In February [address] Tyler with persistent cough. His evaluation included chest CT on 03/04/2017. It showed a spiculated density in the medial aspect of the anterior segment of the right upper lobe. It measured 1.8 x 2.4 x 1.8 cm and it was new compared to a previous study from November 2013. There was no associated mediastinal or hilar adenopathy, and there was no evidence of liver or adrenal metastases. He underwent bronchoscopy on 04/06/2017. There were no endobronchial lesions identified. The lesion was found to be avid by PET/CT. There was no evidence of metastatic involvement. He underwent right upper lobectomy with mediastinal lymph node biopsy on 04/29/2017. Pathology showed low-grade (grade 1-2) adenocarcinoma measuring 3.2 x 2.4 cm. There was penetration into visceral pleura and there was evidence of lymphovascular space invasion. The margins of resection were free, and there was no involvement in 1 mediastinal lymph node, in 1 lymph node at the right mainstem bronchus, and in 2 hilar lymph nodes. He has continued on observation/expectant management following the surgery, as there appeared to be no indication for adjuvant chemotherapy. Dr Chadwick had initially seen him in October 2012 in regard to elevated hemoglobin/hematocrit levels and elevated serum iron. His evaluation at that time showed his hemoglobin elevated at 18.1 g with hematocrit 52%. White count and platelet count were normal. The serum iron was in the upper normal range at 145 mcg/dL with transferrin saturation 30.8%. The serum ferritin, though, was elevated at 606 ng/mL. He had additional evaluation including an erythropoietin level which was in the normal range at 12 mIU/mL. A MICHAEL 2 gene mutation study was negative. The HFE gene analysis showed double heterozygosity for the C282Y and the H63D mutations, consistent with hereditary hemochromatosis. He has been managed on a phlebotomy program. Surveillance chest CT on 12/07/2018 showed stable postoperative changes from prior right upper lobectomy. There was long-term stability of left upper lower lobe nodules. There was chronic emphysema. There was no evidence for recurrent or metastatic neoplastic process. He continued observation/expectant management for the lung cancer. He had then presented to Dr. Tyler's office with swelling and redness in the left arm, in the area of the antecubital fossa. Venous Doppler of the left arm on 02/11/2019 showed extensive occlusive thrombus in the left basilic vein. All other veins of the left upper extremity appeared free of thrombus. He was started on anticoagulation with apixaban. He was seen here for follow-up on 02/25/2019. He then had a restaging PET/CT on 03/10/2019. It showed interval development of abnormal activity in a lytic lesion in the left femoral neck, suspicious for metastatic disease. There was interval resolution of the small right upper lobe lung mass. There were no other areas of abnormal uptake on that study. With those findings, he was referred to Dr. Chin. On 03/17/2019 he underwent prophylactic open reduction with interval fixation of the left hip. Pathology on the bone fragments did confirm metastatic carcinoma consistent with the previous diagnosis of pulmonary infiltrating adenocarcinoma. Following recovery from the surgery he was seen by Dr. Boggs for palliative radiation. He completed treatment on 04/18/2019 to a total dose of 3900 cGy. He tolerated the treatment well. In the meantime, Dr Chadwick had also requested a next generation sequencing study. It was performed on the original lung tumor, as the specimen from the left femur was insufficient for analysis. That study showed low PD-L1 expression at 7%. The mutation burden, though, was high. The tumor was negative for EGFR, BRAF, and KRAS mutations, and it also tested negative for the ALK and ROS1 rearrangements. The NTRK fusion also was not detected. Dr Chadwick had seen him for a follow-up visit on 05/02/2019. He had restaging CT scans on 06/01/2019 showed no evidence for recurrent disease in the chest, abdomen, or pelvis. In the setting of a treated, solitary metastasis, he was recommended to continue on observation/expectant management. On 06/28/2019 he was seen in the emergency room with complaints of dizziness. CT of the head with and without contrast showed no acute findings. He was diagnosed with vestibular neuronitis. On 07/04/2019 he was admitted to the hospital after returning to the emergency room with acute mental status changes. His repeat head CT showed a 10 mm focal area of low-attenuation in the left frontal lobe which appeared new from the recent study. Was felt to possibly represent a subacute infarct. Further evaluation with brain MRI showed multifocal patchy areas of acute ischemia involving the YUNG territories bilaterally. The largest area of ischemia measured approximately 1 cm. There was no evidence of mass-effect or midline shift. The clinical presentation appeared most consistent with cancer related hypercoagulability. As it occurred while on a therapeutic dose of apixaban, his anticoagulation was transitioned to therapeutic Lovenox. His echocardiogram showed normal left ventricular cavity size and systolic function with estimated ejection fraction at 60%. There were no significant valvular abnormalities noted. There appeared to be no significant change compared to her previous study from July 2018. His bilateral carotid Doppler studies showed just moderate atheromatous plaque bilaterally. Head MRA showed no evidence of high-grade proximal stenosis or aneurysm. He was discharged to [facility] for rehab. At that point, he was still having significant expressive aphasia, but his confusion had improved significantly. He subsequently was able to return home. Restaging CT scans of the chest, abdomen, and pelvis on 07/25/2019 showed stable 5 mm noncalcified pulmonary nodule in the left upper lobe and a 3 mm noncalcified nodule in the left lower lobe. There was no mediastinal or hilar adenopathy. A few scattered hypodensities throughout the liver are too small to characterize but similar to prior studies. A new 7 mm hypodensity was noted in the lower pole of the right kidney. There was increased density within the lumen of a contracted gallbladder, suspicious for stones and/or chronic cholecystitis. There was no osteoblastic or osteolytic bone disease identified. On 08/03/2019 he was seen in the emergency room with dizziness. He has repeat noncontrast head CT showed atrophy and chronic deep white matter ischemic change with no acute intracranial abnormality identified. He was diagnosed with vertigo and treated with meclizine. Dr Chadwick had seen him for a follow-up visit on 08/08/2019. He had opted to stop the Lovenox injections, and he had restarted anticoagulation with apixaban. He also was taking Plavix. He was still having some difficulty with his speech and he was having some confusion at times and some difficulty with memory. Subsequent to that visit, his had called and reported that his memory and confusion were continuing to worsen. A repeat brain MRI on 08/23/2019 showed multifocal areas of abnormal diffusion abnormalities and flair signal abnormalities. It was noted to predominantly involve the left hippocampal formation with additional more focal diffusion signal abnormalities extending towards the temporal occipital junction posteriorly. That finding appeared to be most consistent with worsening subacute infarcts. Also noted, though, were additional cortical areas of very subtle enhancement throughout the brain which were suspicious for metastatic lesions. The most concerning were in the left frontal vertex. With those findings, Dr Chadwick was able to get his anticoagulation transition back to Lovenox. A repeat PET/CT on 09/01/2019 showed interval development of a small well-circumscribed lytic lesion in the upper femoral neck on the right measuring up to 19 mm with SUV 7.3. A small amount of fracture was noted along the posterior upper border of the left greater trochanter. Abnormal increased activity was noted along the site of the previous suspected metastatic lesion in the left femoral neck with a maximum SUV 6.2, similar to the previous study. There were no other areas of significant abnormal activity identified. Given the PET/CT findings, he was then given palliative radiation to the right hip, completed on 09/28/2019 to a total dose of 3000 cGy. He tolerated the treatment well. In the meantime, a repeat brain MRI on 09/16/2019 again showed numerous bilateral multi lobar acute lacunar infarcts. The previously described areas of enhancement are felt to most likely be related to ischemia and not to metastatic disease. At that time there was felt to be no convincing evidence for metastatic disease. Dr Moulton had seen him for a follow-up visit on 03/2020. At that point he was beginning to show some recovery. Dr Chadwick had discussed options for further treatment of the lung cancer. It was quite clear that he was not interested in attempting any chemotherapy. He did agree to continue anticoagulation with Lovenox, and ultimately he also agreed to a trial of immunotherapy. His other medical illnesses include hypertension, hyperlipidemia, type 2 diabetes, coronary artery disease, peripheral vascular disease, and degenerative arthritis. He underwent coronary artery bypass surgery in 1996 and he underwent an arterial bypass procedure to the right leg in 1999. In 2013 he was found to have significant hypoxemia. On evaluation he was found to have COPD and obstructive sleep apnea. 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 Also noted was calcific plaque at the origins of the common iliac arteries at 54% on the left and 60% on the right. He has a history of smoking 1-1 1/2 packs of cigarettes daily, but he quit smoking in 1996. INTERIM HISTORY: On 11/09/2019 he began a trial of immunotherapy with pembrolizumab as a single modality. He tolerated the initial infusion of pembrolizumab with no adverse effects, and he then continued treatment at 3-week intervals. As of 02/22/2020 he completed his 6th cycle. At his follow-up visit on 03/14/2020 he had developed a significant skin eruption on his trunk, mainly the back. With that finding, had stopped both the pembrolizumab and the denosumab, he was started on prednisone, initially at 20 mg daily. The prednisone was later reduced to 10 mg daily, as the skin eruption was resolving. He was able to restart pembrolizumab on 03/28/2020. It was opted to keep the denosumab on hold, as it was felt it was the more likely cause for the eruption. He then continued his pembrolizumab infusions every 3 weeks. He completed his cycle 14 on 09/13/2020. Restaging CT scans of the chest, abdomen, and pelvis on 10/02/2020 showed no evidence of disease progression. There were mild chronic emphysematous changes noted. He continued his pembrolizumab infusions every 3 weeks. At his follow-up visit on 02/07/2021 he reported increased pain in the left hip area. Bone scan on 02/18/2021 showed moderate increased uptake involving the left femoral neck with left hip x-ray showing suspected new fracture despite the presence of intramedullary marco a. It was favored to be an insufficiency fracture. There was no other evidence of metastatic bone involvement. Restaging CT scans showed no evidence of recurrent or progressive disease in the chest, abdomen, or pelvis. In particular, there was no evidence for recurrent mass at the right hilum. A 5 mm left upper lobe nodule appeared stable. There was no evidence for metastatic involvement in the liver or adrenal glands. He continues on single agent pembrolizumab. Mr. Sevilla is here today for follow-up. He is due for cycle 25 pembrolizumab. He denies any new concerns. He states he is doing well overall. 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 He denies any mouth sores, sore throat or difficulty swallowing. He is alone at his visit today. He states that his memory is about the same is no worse. He denies any headaches or vision changes. He has had no episodes of acute confusion. He denies mouth sores, sore throat or difficulty swallowing. He has had no recurrent cough or new shortness of breath. He denies any orthopnea. He states he has not had any chest pain or palpitations. He denies nausea or vomiting. States his bowels and bladder are normal for him. He denies any hemoptysis. He denies any lower extremity edema. He denies any pain. His ECOG is 1. Past Medical History: Coronary artery disease Deep vein thrombosis Degenerative arthritis Hyperlipidemia Hypertension Peripheral vascular disease Type II diabetes His medical illnesses include hypertension, hyperlipidemia, type 2 diabetes, coronary artery disease, peripheral vascular disease, and degenerative arthritis. Past Surgical History: Heart by-pass - quadruple bypass Covid vaccine #2???Moderna in 2020 Flu vac-[facility] in 2019 Left femoral neck biopsy in 2018 Open reduction internal fixation Left hip-Dr Chin in 2019 Right upper lobectomy with mediastinal lymph node biopsy-Dr Rivers in 2017 He underwent coronary artery bypass surgery in 1996 and an arterial bypass procedure to the right leg in 1999. His only other surgery was an appendectomy in 6. Allergies: PENICILLIN AND ALEVE Medications: Acetaminophen Extra Strength 1 (500 mg) Tablet Oral b.i.d. amLODIPine Besylate 0.5 Tablet (of 5 mg) Oral at bedtime B-12 1 Tablet (of 1000 mcg) Tablet Oral daily Bisacodyl 1 Tablet (of 5 mg) Tablet, enteric coated Oral daily PRN Carvedilol 1 (25 mg) Tablet Oral b.i.d. Cholecalciferol 1 Capsule (of 2000 Units) Oral daily Dulcolax Milk of Magnesia 30 mL (of 400 mg/5mL) Suspension Oral daily PRN Enoxaparin Sodium 80 mg (of 300 mg/3mL) Injection b.i.d. Famotidine 1 Tablet (of 20 mg) Oral b.i.d. PRN Fish Oil 1 (1200 mg) Capsule Oral daily Flonase Suspension Nasal Gabapentin 1 Tablet (of 300 mg) Oral daily Hydrocodone-Acetaminophen 1 (5-325 mg) Tablet Oral four times a day PRN Jardiance 0.5 Tablet (of 12.5 ) Oral daily Lovastatin 1 Tablet (of 40 mg) Oral b.i.d. Meclizine HCl 1 Tablet (of 25 mg) Oral daily PRN MetFORMIN HCl 1 Tablet (of 500 mg) Oral b.i.d. Plavix 1 (75 mg) Tablet Oral daily Spiriva Respimat Aerosol, solution Inhalation Tamsulosin HCl 1 (0.4 mg) Capsule Oral daily Family History: His father following stomach surgery at age 66. His mother had diabetes and with kidney thought here at age 74. A half-brother had alcoholic cirrhosis and as a result of an injury. A sister of leukemia at age 6. 3 other sisters and one brother are still living and in good health. Social History: Mr. Sevilla is and he is retired. Mr. Sevilla quit smoking 18 years ago but had smoked 1.5 packs/day for 23 years. He quit drinking 12 years ago. He has indicated exposure to the following products: cigarettes. Mr. Sevilla reports the following support systems: lives with spouse, significant other, family, or friends, lives in own house, supportive family/friends willing to assist with needs, and adequate transportation available for expected visits. His diet consists of regular meals. He indicates his activity level as: daily activities. He is retired. He had previously smoked up to a pack and a half of cigarettes daily. He quit in 1996. He has had social alcohol use in the past. He has had no alcohol use for at least 10 years or more. Review Of Symptoms: <See Above> Vital Signs: Performed on May 01, 2021 11:54 Height - 65.00 in Weight - 176.2 lbs (HIGH) BSA - 1.87 sq.m BMI - 29.32 Temperature - 96.9 F (LOW) Pulse - 59 /min (LOW) Respiration - 18 /min BP - 132/73 mm(hg) O2 Sat - 98 % Pain - 4 Fatigue - 2,1 - No physically strenuous activity, but ambulatory and able to carry out light or sedentary work (e.g. office work, light house work). (ECOG) Physical Examination: Constitutional Alert, oriented, no acute distress. Skin pink, warm and dry. Head Normocephalic; atraumatic. Eyes Conjunctivae and sclerae are clear and without icterus. Pupils are reactive and equal. Neck Supple without masses or thyromegaly. No jugular venous distension. Hematologic/Lymphatic No petechiae or purpura. No tender or palpable lymph nodes in the cervical or supraclavicular areas. Respiratory Lungs are clear to auscultation without rhonchi or wheezing. Cardiovascular Regular rate and rhythm of heart without murmurs,clicks, gallops or rubs. Abdomen Non-tender, non-distended, no masses, ascites. Good bowel sounds noted in all quads. No guarding or rebound tenderness. No pulsatile masses. Scattered bruising and mild redness at injection sites from Lovenox. No exudate. Back/Spine Non-tender to palpation. Extremities No visible deformities, no cyanosis, clubbing or edema. Musculoskeletal No tenderness or swelling, normal range of motion without obvious weakness. Integumentary No rashes or lesions. Neurologic No sensory or motor deficits, normal cerebellar function, normal gait. Psychiatric Alert and oriented times three. Coherent speech. Verbalizes understanding of our discussions today. Laboratory:Test performed on May 01, 2021 09:35 Sodium 136 mmol/L T4, Free 1.30 ng/dL TSH 4.27 uIU/mL Potassium 4.7 mmol/L Chloride 99 mmol/L CO2 24 mmol/L Anion Gap 17.7 BUN 21 mg/dL Creatinine 0.9 mg/dL Cr Clearance (Est) 76.47 mL/min Glucose 212 mg/dL Osmolality - Calculated 291 mOsm/kg Calcium 9.7 mg/dL Protein, Total 6.9 g/dL Albumin 4.3 g/dL Globulin 2.6 g/dL Bilirubin, Total 0.9 mg/dL ALT (SGPT) 13 U/L AST (SGOT) 15 U/L Alkaline Phosphatase 36 IU/L WBC 6.1 10 3/uL RBC 5.66 10 6/uL HGB 17.7 g/dL HCT 51.3 % MCV 90.6 fl MCH 31.3 pg MCHC 34.5 g/dL RDW 13.8 % Platelet Count 175 10 3/cmm MPV 9.9 fL Neutrophils 3.69 10 3/uL Lymphocytes 1.2 10 3/uL Monocytes 0.6 10 3/uL Eosinophils 0.6 10 3/uL Basophils 0.1 10 3/uL Neutrophil % 60.3 % Lymphocyte % 19.1 % Monocyte % 10.4 % Eosinophil % 9.1 % Basophils % 0.8 % NRBC % 0 % Test performed on Mar 21, 2021 08:24 Ferritin 112 ng/mL Iron 105 mcg/dL Iron Binding Capacity (TIBC) 356 mcg/dl % Iron Saturation 29.4 % UIBC 251 mcg/dL Impression: 1. Nonsmall cell cancer (low-grade adenocarcinoma) involving the upper lobe of the right lung, stage IB (T2a, N0, M0). He underwent right upper lobectomy with mediastinal lymph node biopsy on 04/29/2017. He had subsequent progression to stage IVB (M1c) with multiple sites of metastatic bone involvement. 2. A next generation sequencing study on his primary lung tumor showed low PD-L1 expression at 7%. The mutation burden was high. There were no actionable mutations identified. 3. 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 4. He has hereditary hemochromatosis. He was found to be doubly heterozygous for the C282Y and the H63D mutations. He has had a very good response to phlebotomy, with his subsequent ferritin levels maintained at less than 50 ng/mL compared to a pretreatment level of greater than 600. 5. He has underlying lung disease including COPD and obstructive sleep apnea, and he has associated chronic hypoxia. 6. Hypertension. 7. Hyperlipidemia. 8. Type II diabetes. 9. Coronary artery disease. 10. Peripheral arterial disease. 11. Degenerative arthritis. Plan/Problems Addressed at this Visit: 1. Nonsmall cell cancer (low-grade adenocarcinoma) involving the upper lobe of the right lung, stage IB (T2a, N0, M0). He underwent right upper lobectomy with mediastinal lymph node biopsy on 04/29/2017. He had subsequent progression to stage IVB (M1c) with multiple sites of metastatic bone involvement. A next generation sequencing study on his primary lung tumor showed low PD-L1 expression at 7%. The mutation burden was high. There were no actionable mutations identified. His restaging PET/CT on 03/10/2019 showed evidence of a single site of metastatic disease in the form of a lytic bone lesion in the left femoral neck. He underwent prophylactic ORIF of the left hip on 03/17/2019. Pathology confirmed metastatic adenocarcinoma. Following recovery from the surgery, he was seen by Dr. Boggs for palliative radiation. He completed treatment on 04/18/2019 to a total dose of 3900 cGy. A repeat PET/CT on 09/01/2019 showed a new small metastatic lesion in the right proximal femur. There was residual activity at the site of the metastatic lesion in the left femur. There were no other areas of abnormal activity noted on that study. He was then given palliative radiation to the right hip, completed on 09/28/2019 to a total dose of 3000 cGy. On 11/09/2019 he began a trial of immunotherapy with pembrolizumab. He tolerated the initial infusion of pembrolizumab with no adverse effects, and he then continued treatment at 3-week intervals. During that time he also began denosumab injections for the metastatic bone involvement. As of his follow-up visit on 03/14/2020 both the pembrolizumab and the denosumab were put on hold to development of skin eruption. The eruption gradually resolved on steroid therapy, and he was able to resume pembrolizumab on 03/28/2020. He was able to taper off prednisone, but with some persistent itching on his back, which he was able manage topically with CeraVe. He had otherwise tolerated treatment well. His restaging CT scans on 06/18/2020 showed no evidence of metastatic disease. He then continued treatment with pembrolizumab at 3-week intervals. His restaging CT scans on 10/02/2020 showed no evidence of disease progression, and he continued his same treatment. He has since then continued to complain of dizziness, and he has had ongoing problems with memory. As of his follow-up visit on 02/07/2021 he was reporting some increasing pain in the posterior hip area on both sides. On restaging evaluation, he was found evidence of a fracture in the left femoral neck extending into the proximal femur. There was no indication for treatment and there was no evidence for progression of the lung cancer. He continues with single agent pembrolizumab. A. Proceed with cycle 25 pembrolizumab 200 mg every 3 weeks. B. Today's labs reviewed in detail discussed with Mr. Sevilla and a copy was given to him. WBC 6.1, hemoglobin 17.7, platelets 175,000, ANC is 3700. Random glucose 212 creatinine 0.9 LFTs are normal. TSH is 4.27 improved from 03/21/2021 at 5.12. His weight is stable at 176.2. C. He will return in 3 weeks for single agent pembrolizumab. D. He will return in 6 weeks with CBC CMP TSH and follow-up for consideration of cycle 27 single agent pembrolizumab. A. Mr. Sevilla was encouraged to contact us in the interim if questions or problems arise. 2. 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 He continues anticoagulation with Lovenox. 3. He has hereditary hemochromatosis. His serum ferritin level is a little above target range and he does have significantly elevated hemoglobin/hematocrit levels. He does have intermittent phlebotomy as needed. Signed By: Brian Lovell-, CNP Shorty Chadwick MD <<Signature on File>>
== END 2021-05-01 09:11 | disposition home or self-care (01) ==
PROVIDERS: PCP Nurse Practitioner Family; Visit Provider Nurse Practitioner
DX: Z51.12 Encounter for antineoplastic immunotherapy (principal); C34.11 Malignant neoplasm of upper lobe, right bronchus or lung; C79.51 Secondary malignant neoplasm of bone; E83.110 Hereditary hemochromatosis; R79.89 Other specified abnormal findings of blood chemistry; Z79.899 Other long term (current) drug therapy
CPT/HCPCS: 80053; 84439; 84443; 85025; 96413; 99215; J7050; J9271

== ENCOUNTER 2021-05-21 11:29 | Outpatient (CLI) | payer MEDICARE, SELFPAY | END 2021-05-21 11:30 | disposition home or self-care (01) | PROVIDERS: PCP Nurse Practitioner Family; Visit Provider Internal Medicine Medical Oncology | DX: Z51.12 Encounter for antineoplastic immunotherapy (principal); C34.11 Malignant neoplasm of upper lobe, right bronchus or lung; C79.51 Secondary malignant neoplasm of bone | CPT/HCPCS: 96413; J7050; J9271 ==

== ENCOUNTER 2021-06-11 08:44 | Outpatient (CLI) | payer MEDICARE, SELFPAY ==
[2021-06-11 09:16] LABS: Basophils % 0.6 %; Eosinophils # 0.6 10^3/uL (0.0-0.8); Eosinophils % 9.3 %; Hematocrit 51.4 % (42.0-52.0); Hemoglobin 17.6 g/dL (11.7-16.6); Mean Corpuscular HGB Conc 34.2 g/dL (30.0-36.0); Mean Corpuscular Hemoglobin 31.1 pg (28.0-34.0); Mean Corpuscular Volume 90.8 fl (80-94); Mean Platelet Volume 9.8 fL (7.4-10.4); Monocytes # 0.6 10^3/uL (0.2-0.9); Monocytes % 8.6 %; Neutrophils # 4.26 10^3/uL (1.8-7.7); Neutrophils % 66.3 %; Nucleated Red Blood Cells % 0 %; Platelet Count 170 10^3/cmm (130-400); Red Blood Count 5.66 10^6/uL (4.1-5.3); Red Cell Distribution Width 13.5 % (12.1-15.1); White Blood Count 6.4 10^3/uL (4.0-10.0)
[2021-06-11 09:41] LABS: Alanine Aminotransferase 11 U/L (0-41); Albumin Level 4.3 g/dL (3.5-5.2); Alkaline Phosphatase 38 IU/L (40-130); Anion Gap 18.4 (5-19); Aspartate Amino Transferase 12 U/L (0-40); Blood Urea Nitrogen 20 mg/dL (8-23); Calcium 8.9 mg/dL (8.5-10.5); Carbon Dioxide 24 mmol/L (22-29); Chloride 102 mmol/L (98-107); Globulin 2.5 g/dL (1.3-4.6); Glucose 236 mg/dL (65-115); Osmolality Calculated 300 mOsm/kg (285-295); Potassium 4.4 mmol/L (3.5-5.1); Sodium 140 mmol/L (136-145); Thyroid Stimulating Hormone 6.23 uIU/mL (0.27-4.20); Total Bilirubin 0.6 mg/dL (0.15-1.2); Total Protein 6.8 g/dL (6.6-8.7)
[2021-06-11 09:54] LABS: Estmated Average Glucose 240
[2021-06-11] MEDS: sodium chloride 0.9% 250 ML 125 ML IV (11:30)
== END 2021-06-11 08:45 | disposition home or self-care (01) ==
LOC: ONCMED 08:47
PROVIDERS: Internal Medicine Medical Oncology; PCP Nurse Practitioner Family; Visit Provider Nurse Practitioner Family
DX: Z51.12 Encounter for antineoplastic immunotherapy (principal); C34.11 Malignant neoplasm of upper lobe, right bronchus or lung; C79.51 Secondary malignant neoplasm of bone; I26.99 Other pulmonary embolism without acute cor pulmonale; I82.409 Acute embolism and thrombosis of unspecified deep veins of unspecified lower extremity; I63.9 Cerebral infarction, unspecified; E83.110 Hereditary hemochromatosis; J44.9 Chronic obstructive pulmonary disease, unspecified; G47.33 Obstructive sleep apnea (adult) (pediatric); R09.02 Hypoxemia; I10 Essential (primary) hypertension; E78.5 Hyperlipidemia, unspecified; E11.59 Type 2 diabetes mellitus with other circulatory complications; I25.10 Atherosclerotic heart disease of native coronary artery without angina pectoris; I73.9 Peripheral vascular disease, unspecified; M19.90 Unspecified osteoarthritis, unspecified site; E03.9 Hypothyroidism, unspecified; R73.03 Prediabetes; Z79.899 Other long term (current) drug therapy; Z92.21 Personal history of antineoplastic chemotherapy
CPT/HCPCS: 80053; 83036; 84443; 85025; 96413; 99215; J7050; J9271

== ENCOUNTER 2021-07-02 07:31 | Outpatient (CLI) | payer MEDICARE, SELFPAY ==
[2021-07-02 08:57] LABS: Basophils # 0.1 10^3/uL (0.0-0.1); Basophils % 1.1 %; Eosinophils # 0.6 10^3/uL (0.0-0.8); Eosinophils % 9.4 %; Hematocrit 53.6 % (42.0-52.0); Hemoglobin 18.5 g/dL (11.7-16.6); Lymphocytes # 1.3 10^3/uL (0.8-4.8); Lymphocytes % 21.1 %; Mean Corpuscular HGB Conc 34.5 g/dL (30.0-36.0); Mean Corpuscular Hemoglobin 30.9 pg (28.0-34.0); Mean Corpuscular Volume 89.5 fl (80-94); Mean Platelet Volume 9.8 fL (7.4-10.4); Monocytes # 0.6 10^3/uL (0.2-0.9); Monocytes % 9.8 %; Neutrophils # 3.69 10^3/uL (1.8-7.7); Neutrophils % 58.4 %; Nucleated Red Blood Cells % 0 %; Platelet Count 205 10^3/cmm (130-400); Red Blood Count 5.99 10^6/uL (4.1-5.3); Red Cell Distribution Width 13.2 % (12.1-15.1); White Blood Count 6.3 10^3/uL (4.0-10.0)
[2021-07-02 09:21] LABS: Alanine Aminotransferase 14 U/L (0-41); Albumin Level 4.3 g/dL (3.5-5.2); Alkaline Phosphatase 45 IU/L (40-130); Anion Gap 18.3 (5-19); Aspartate Amino Transferase 14 U/L (0-40); Blood Urea Nitrogen 21 mg/dL (8-23); Calcium 10.2 mg/dL (8.5-10.5); Carbon Dioxide 23 mmol/L (22-29); Chloride 99 mmol/L (98-107); Globulin 2.6 g/dL (1.3-4.6); Glucose 298 mg/dL (65-115); Osmolality Calculated 296 mOsm/kg (285-295); Potassium 4.3 mmol/L (3.5-5.1); Sodium 136 mmol/L (136-145); Thyroid Stimulating Hormone 5.16 uIU/mL (0.27-4.20); Total Bilirubin 0.9 mg/dL (0.15-1.2); Total Protein 6.9 g/dL (6.6-8.7)
[2021-07-02] MEDS: sodium chloride 0.9% 250 ML 125 ML IV (10:20)
--- NOTE | 2021-07-02 19:42 | ONC FU_ITS ---
Dr. Chadwick Patient Follow-Up Note Patient: Lynnette Sevilla Unit #: [id number]: [id number] Dicatated By: hSorty Chadwick M.D.Date of Visit:Jul 02, 2021 Onc Med Follow-up/Prog Note Chief Complaint: Hemochromatosis/lung cancer. 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 His disease was stage IB (T2a, N0, M0) at initial diagnosis, but with subsequent progression to stage TIGIST (M1b). He also has hereditary hemochromatosis. In February [address] Tyler with persistent cough. His evaluation included chest CT on 03/04/2017. It showed a spiculated density in the medial aspect of the anterior segment of the right upper lobe. It measured 1.8 x 2.4 x 1.8 cm and it was new compared to a previous study from November 2013. There was no associated mediastinal or hilar adenopathy, and there was no evidence of liver or adrenal metastases. He underwent bronchoscopy on 04/06/2017. There were no endobronchial lesions identified. The lesion was found to be avid by PET/CT. There was no evidence of metastatic involvement. He underwent right upper lobectomy with mediastinal lymph node biopsy on 04/29/2017. Pathology showed low-grade (grade 1-2) adenocarcinoma measuring 3.2 x 2.4 cm. There was penetration into visceral pleura and there was evidence of lymphovascular space invasion. The margins of resection were free, and there was no involvement in 1 mediastinal lymph node, in 1 lymph node at the right mainstem bronchus, and in 2 hilar lymph nodes. He has continued on observation/expectant management following the surgery, as there appeared to be no indication for adjuvant chemotherapy. I had initially seen him in October 2012 in regard to elevated hemoglobin/hematocrit levels and elevated serum iron. His evaluation at that time showed his hemoglobin elevated at 18.1 g with hematocrit 52%. White count and platelet count were normal. The serum iron was in the upper normal range at 145 mcg/dL with transferrin saturation 30.8%. The serum ferritin, though, was elevated at 606 ng/mL. He had additional evaluation including an erythropoietin level which was in the normal range at 12 mIU/mL. A MICHAEL 2 gene mutation study was negative. The HFE gene analysis showed double heterozygosity for the C282Y and the H63D mutations, consistent with hereditary hemochromatosis. He has been managed on a phlebotomy program. Surveillance chest CT on 12/07/2018 showed stable postoperative changes from prior right upper lobectomy. There was long-term stability of left upper lower lobe nodules. There was chronic emphysema. There was no evidence for recurrent or metastatic neoplastic process. He continued observation/expectant management for the lung cancer. He had then presented to Dr. Tyler's office with swelling and redness in the left arm, in the area of the antecubital fossa. Venous Doppler of the left arm on 02/11/2019 showed extensive occlusive thrombus in the left basilic vein. All other veins of the left upper extremity appeared free of thrombus. He was started on anticoagulation with apixaban. He was seen here for follow-up on 02/25/2019. He then had a restaging PET/CT on 03/10/2019. It showed interval development of abnormal activity in a lytic lesion in the left femoral neck, suspicious for metastatic disease. There was interval resolution of the small right upper lobe lung mass. There were no other areas of abnormal uptake on that study. With those findings, he was referred to Dr. Chin. On 03/17/2019 he underwent prophylactic open reduction with interval fixation of the left hip. Pathology on the bone fragments did confirm metastatic carcinoma consistent with the previous diagnosis of pulmonary infiltrating adenocarcinoma. Following recovery from the surgery he was seen by Dr. Boggs for palliative radiation. He completed treatment on 04/18/2019 to a total dose of 3900 cGy. He tolerated the treatment well. In the meantime, I had also requested a next generation sequencing study. It was performed on the original lung tumor, as the specimen from the left femur was insufficient for analysis. That study showed low PD-L1 expression at 7%. The mutation burden, though, was high. The tumor was negative for EGFR, BRAF, and KRAS mutations, and it also tested negative for the ALK and ROS1 rearrangements. The NTRK fusion also was not detected. I had seen him for a follow-up visit on 05/02/2019. He had restaging CT scans on 06/01/2019 showed no evidence for recurrent disease in the chest, abdomen, or pelvis. In the setting of a treated, solitary metastasis, he was recommended to continue on observation/expectant management. On 06/28/2019 he was seen in the emergency room with complaints of dizziness. CT of the head with and without contrast showed no acute findings. He was diagnosed with vestibular neuronitis. On 07/04/2019 he was admitted to the hospital after returning to the emergency room with acute mental status changes. His repeat head CT showed a 10 mm focal area of low-attenuation in the left frontal lobe which appeared new from the recent study. Was felt to possibly represent a subacute infarct. Further evaluation with brain MRI showed multifocal patchy areas of acute ischemia involving the YUNG territories bilaterally. The largest area of ischemia measured approximately 1 cm. There was no evidence of mass-effect or midline shift. The clinical presentation appeared most consistent with cancer related hypercoagulability. As it occurred while on a therapeutic dose of apixaban, his anticoagulation was transitioned to therapeutic Lovenox. His echocardiogram showed normal left ventricular cavity size and systolic function with estimated ejection fraction at 60%. There were no significant valvular abnormalities noted. There appeared to be no significant change compared to her previous study from July 2018. His bilateral carotid Doppler studies showed just moderate atheromatous plaque bilaterally. Head MRA showed no evidence of high-grade proximal stenosis or aneurysm. He was discharged to [facility] for rehab. At that point, he was still having significant expressive aphasia, but his confusion had improved significantly. He subsequently was able to return home. Restaging CT scans of the chest, abdomen, and pelvis on 07/25/2019 showed stable 5 mm noncalcified pulmonary nodule in the left upper lobe and a 3 mm noncalcified nodule in the left lower lobe. There was no mediastinal or hilar adenopathy. A few scattered hypodensities throughout the liver are too small to characterize but similar to prior studies. A new 7 mm hypodensity was noted in the lower pole of the right kidney. There was increased density within the lumen of a contracted gallbladder, suspicious for stones and/or chronic cholecystitis. There was no osteoblastic or osteolytic bone disease identified. On 08/03/2019 he was seen in the emergency room with dizziness. He has repeat noncontrast head CT showed atrophy and chronic deep white matter ischemic change with no acute intracranial abnormality identified. He was diagnosed with vertigo and treated with meclizine. I had seen him for a follow-up visit on 08/08/2019. He had opted to stop the Lovenox injections, and he had restarted anticoagulation with apixaban. He also was taking Plavix. He was still having some difficulty with his speech and he was having some confusion at times and some difficulty with memory. Subsequent to that visit, his had called and reported that his memory and confusion were continuing to worsen. A repeat brain MRI on 08/23/2019 showed multifocal areas of abnormal diffusion abnormalities and flair signal abnormalities. It was noted to predominantly involve the left hippocampal formation with additional more focal diffusion signal abnormalities extending towards the temporal occipital junction posteriorly. That finding appeared to be most consistent with worsening subacute infarcts. Also noted, though, were additional cortical areas of very subtle enhancement throughout the brain which were suspicious for metastatic lesions. The most concerning were in the left frontal vertex. With those findings, I was able to get his anticoagulation transition back to Lovenox. A repeat PET/CT on 09/01/2019 showed interval development of a small well-circumscribed lytic lesion in the upper femoral neck on the right measuring up to 19 mm with SUV 7.3. A small amount of fracture was noted along the posterior upper border of the left greater trochanter. Abnormal increased activity was noted along the site of the previous suspected metastatic lesion in the left femoral neck with a maximum SUV 6.2, similar to the previous study. There were no other areas of significant abnormal activity identified. Given the PET/CT findings, he was then given palliative radiation to the right hip, completed on 09/28/2019 to a total dose of 3000 cGy. He tolerated the treatment well. In the meantime, a repeat brain MRI on 09/16/2019 again showed numerous bilateral multi lobar acute lacunar infarcts. The previously described areas of enhancement are felt to most likely be related to ischemia and not to metastatic disease. At that time there was felt to be no convincing evidence for metastatic disease. I had seen him for a follow-up visit on 03/2020. At that point he was beginning to show some recovery. I had discussed options for further treatment of the lung cancer. It was quite clear that he was not interested in attempting any chemotherapy. He did agree to continue anticoagulation with Lovenox, and ultimately he also agreed to a trial of immunotherapy. His other medical illnesses include hypertension, hyperlipidemia, type 2 diabetes, coronary artery disease, peripheral vascular disease, and degenerative arthritis. He underwent coronary artery bypass surgery in 1996 and he underwent an arterial bypass procedure to the right leg in 1999. In 2013 he was found to have significant hypoxemia. On evaluation he was found to have COPD and obstructive sleep apnea. 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 Also noted was calcific plaque at the origins of the common iliac arteries at 54% on the left and 60% on the right. He has a history of smoking 1-1 1/2 packs of cigarettes daily, but he quit smoking in 1996. INTERIM HISTORY: On 11/09/2019 he began a trial of immunotherapy with pembrolizumab as a single modality. He tolerated the initial infusion of pembrolizumab with no adverse effects, and he then continued treatment at 3-week intervals. As of 02/22/2020 he completed his 6th cycle. At his follow-up visit on 03/14/2020 he had developed a significant skin eruption on his trunk, mainly the back. With that finding, had stopped both the pembrolizumab and the denosumab, I also had him start prednisone, initially at 20 mg daily. The prednisone was later reduced to 10 mg daily, as the skin eruption was resolving. He was able to restart pembrolizumab on 03/28/2020. I opted to keep the denosumab on hold, as I felt it was the more likely cause for the eruption. He then continued his pembrolizumab infusions every 3 weeks. He completed his cycle 14 on 09/13/2020. Restaging CT scans of the chest, abdomen, and pelvis on 10/02/2020 showed no evidence of disease progression. There were mild chronic emphysematous changes noted. He continued his pembrolizumab infusions every 3 weeks. At his follow-up visit on 02/07/2021 he reported increased pain in the left hip area. Bone scan on 02/18/2021 showed moderate increased uptake involving the left femoral neck with left hip x-ray showing suspected new fracture despite the presence of intramedullary marco a. It was favored to be an insufficiency fracture. There was no other evidence of metastatic bone involvement. Restaging CT scans showed no evidence of recurrent or progressive disease in the chest, abdomen, or pelvis. In particular, there was no evidence for recurrent mass at the right hilum. A 5 mm left upper lobe nodule appeared stable. There was no evidence for metastatic involvement in the liver or adrenal glands. In the absence of any evidence of disease progression, he continued treatment with pembrolizumab. He is seen for a follow-up visit. His main complaint is that he has been having quite a bit of pain. He says his hips have been killing him all the time. He localizes that pain to the posterior/lateral hip area on both sides. He also complains of having pain in the middle of his back. He has somewhat limited activity, but he is up and around and he is doing light work. ECOG score is 1. He has good appetite. He has no fever or night sweats. He has some sinus drainage. He does not have sore mouth or throat. He has shortness of breath, which is chronic. He is on CPAP. He does not complain of cough and he has not been having chest pain. He has no GI/ complaints other than frequent urination. He does not complain of headache. He has had ongoing issues with balance. He has no numbness/paresthesia or other focal neurologic symptoms. Medications: Acetaminophen Extra Strength 1 (500 mg) Tablet Oral b.i.d., amLODIPine Besylate 0.5 Tablet (of 5 mg) Oral at bedtime, B-12 1 Tablet (of 1000 mcg) Tablet Oral daily, Bisacodyl 1 Tablet (of 5 mg) Tablet, enteric coated Oral daily PRN, Carvedilol 1 (25 mg) Tablet Oral b.i.d., Cholecalciferol 1 Capsule (of 2000 Units) Oral daily, Dulcolax Milk of Magnesia 30 mL (of 400 mg/5mL) Suspension Oral daily PRN, Enoxaparin Sodium 80 mg (of 300 mg/3mL) Injection b.i.d., Famotidine 1 Tablet (of 20 mg) Oral b.i.d. PRN, Fish Oil 1 (1200 mg) Capsule Oral daily, Flonase Suspension Nasal, Gabapentin 1 Tablet (of 300 mg) Oral daily, Hydrocodone-Acetaminophen 1 (5-325 mg) Tablet Oral four times a day PRN, Jardiance 0.5 Tablet (of 12.5 ) Oral daily, Lovastatin 1 Tablet (of 40 mg) Oral b.i.d., Meclizine HCl 1 Tablet (of 25 mg) Oral daily PRN, MetFORMIN HCl 1 Tablet (of 500 mg) Oral b.i.d., Plavix 1 (75 mg) Tablet Oral daily, Spiriva Respimat Aerosol, solution Inhalation, Tamsulosin HCl 1 (0.4 mg) Capsule Oral daily Allergies: PENICILLIN AND ALEVE Vital Signs: Performed on Jul 02, 2021 09:21 Height - 65.00 in Weight - 176.8 lbs (LOW) BSA - 1.88 sq.m BMI - 29.42 Temperature - 97.8 F (LOW) Pulse - 68 /min Respiration - 20 /min BP - 120/69 mm(hg) O2 Sat - 92 % (LOW) Pain - 4 Fatigue - 7 Physical Examination: Constitutional - He looks pretty good generally, Eyes - Sclerae nonicteric. Conjunctivae clear, ENMT - No lesions noted in the oral cavity, Hematologic/Lymphatic - No cervical, clavicular, or axillary adenopathy, Respiratory - Lungs sound clear with some decrease in air movement bilaterally, Cardiovascular - Heart rhythm is regular. There is no murmur, gallop, or rub noted, Abdomen - Soft. Liver and spleen are not enlarged. There is no abdominal mass or ascites noted and there is no inguinal adenopathy, Back/Spine - There is mild tenderness over the mid to lower thoracic spine, Extremities - No edema, Neurologic - No focal neurologic deficits noted. Lab/Imaging: Test performed on Jul 02, 2021 08:15 Sodium 136 mmol/L TSH 5.16 uIU/mL Potassium 4.3 mmol/L Chloride 99 mmol/L CO2 23 mmol/L Anion Gap 18.3 BUN 21 mg/dL Creatinine 1.0 mg/dL Cr Clearance (Est) 67.94 mL/min Glucose 298 mg/dL Osmolality - Calculated 296 mOsm/kg Calcium 10.2 mg/dL Protein, Total 6.9 g/dL Albumin 4.3 g/dL Globulin 2.6 g/dL Bilirubin, Total 0.9 mg/dL ALT (SGPT) 14 U/L AST (SGOT) 14 U/L Alkaline Phosphatase 45 IU/L WBC 6.3 10 3/uL RBC 5.99 10 6/uL HGB 18.5 g/dL HCT 53.6 % MCV 89.5 fl MCH 30.9 pg MCHC 34.5 g/dL RDW 13.2 % Platelet Count 205 10 3/cmm MPV 9.8 fL Neutrophils 3.69 10 3/uL Lymphocytes 1.3 10 3/uL Monocytes 0.6 10 3/uL Eosinophils 0.6 10 3/uL Basophils 0.1 10 3/uL Neutrophil % 58.4 % Lymphocyte % 21.1 % Monocyte % 9.8 % Eosinophil % 9.4 % Basophils % 1.1 % NRBC % 0 % Problem List: 1. Nonsmall cell cancer (low-grade adenocarcinoma) involving the upper lobe of the right lung, stage IB (T2a, N0, M0). He underwent right upper lobectomy with mediastinal lymph node biopsy on 04/29/2017. He had subsequent progression to stage IVB (M1c) with multiple sites of metastatic bone involvement. 2. A next generation sequencing study on his primary lung tumor showed low PD-L1 expression at 7%. The mutation burden was high. There were no actionable mutations identified. 3. 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 4. He has hereditary hemochromatosis. He was found to be doubly heterozygous for the C282Y and the H63D mutations. He has had a very good response to phlebotomy, with his subsequent ferritin levels maintained at less than 50 ng/mL compared to a pretreatment level of greater than 600. 5. He has underlying lung disease including COPD and obstructive sleep apnea, and he has associated chronic hypoxia. 6. Hypertension. 7. Hyperlipidemia. 8. Type II diabetes. 9. Coronary artery disease. 10. Peripheral arterial disease. 11. Degenerative arthritis. Problems Addressed with this Encounter and Plan: 1. Patient with nonsmall cell cancer (low-grade adenocarcinoma) involving the upper lobe of the right lung, stage IB (T2a, N0, M0). He underwent right upper lobectomy with mediastinal lymph node biopsy on 04/29/2017. He had subsequent progression to stage IVB (M1c) with multiple sites of metastatic bone involvement. A next generation sequencing study on his primary lung tumor showed low PD-L1 expression at 7%. The mutation burden was high. There were no actionable mutations identified. His restaging PET/CT on 03/10/2019 showed evidence of a single site of metastatic disease in the form of a lytic bone lesion in the left femoral neck. He underwent prophylactic ORIF of the left hip on 03/17/2019. Pathology confirmed metastatic adenocarcinoma. Following recovery from the surgery, he was seen by Dr. Boggs for palliative radiation. He completed treatment on 04/18/2019 to a total dose of 3900 cGy. A repeat PET/CT on 09/01/2019 showed a new small metastatic lesion in the right proximal femur. There was residual activity at the site of the metastatic lesion in the left femur. There were no other areas of abnormal activity noted on that study. He was then given palliative radiation to the right hip, completed on 09/28/2019 to a total dose of 3000 cGy. On 11/09/2019 he began a trial of immunotherapy with pembrolizumab. He tolerated the initial infusion of pembrolizumab with no adverse effects, and he then continued treatment at 3-week intervals. During that time he also began denosumab injections for the metastatic bone involvement. As of his follow-up visit on 03/14/2020 both the pembrolizumab and the denosumab were put on hold to development of skin eruption. The eruption gradually resolved on steroid therapy, and he was able to resume pembrolizumab on 03/28/2020. He was able to taper off prednisone, but with some persistent itching on his back, which he was able manage topically with CeraVe. He had otherwise tolerated treatment well. His restaging CT scans on 06/18/2020 showed no evidence of metastatic disease. He then continued treatment with pembrolizumab at 3-week intervals. His restaging CT scans on 10/02/2020 showed no evidence of disease progression, and he continued his same treatment. He has since then continued to complain of dizziness, and he has had ongoing problems with memory. As of his follow-up visit on 02/07/2021 he was reporting some increasing pain in the posterior hip area on both sides. On restaging evaluation, he was found evidence of a fracture in the left femoral neck extending into the proximal femur. There was no indication for treatment and there was no evidence for progression of the lung cancer. In the absence of any evidence of disease progression he continued treatment with pembrolizumab at 200 mg by IV infusion every 3 weeks. During the past several months he has had increasing pain, mainly in the hip area bilaterally and more recently in the mid back. Thus far a specific cause for that has not been determined. The main concern obviously is progression of his metastatic bone disease. At least some component, though, could be treatment related. At this point he will continue treatment with pembrolizumab 200 mg by IV infusion, but he will be scheduled for restaging CT scans of the chest, abdomen, and pelvis. He will have further evaluation as indicated. 2. 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 He continues anticoagulation with Lovenox. 3. He has hereditary hemochromatosis. He has been managed with phlebotomy. Signed By: Shorty Chadwick M.D. <<Signature on File>>
== END 2021-07-02 07:32 | disposition home or self-care (01) ==
LOC: ONCMED 07:33
PROVIDERS: PCP Nurse Practitioner Family; Visit Provider Internal Medicine Medical Oncology
DX: Z51.12 Encounter for antineoplastic immunotherapy (principal); C34.11 Malignant neoplasm of upper lobe, right bronchus or lung; C79.51 Secondary malignant neoplasm of bone; I74.8 Embolism and thrombosis of other arteries; E83.110 Hereditary hemochromatosis; J44.9 Chronic obstructive pulmonary disease, unspecified; R09.02 Hypoxemia; G47.33 Obstructive sleep apnea (adult) (pediatric); I10 Essential (primary) hypertension; E78.5 Hyperlipidemia, unspecified; E11.9 Type 2 diabetes mellitus without complications; I25.10 Atherosclerotic heart disease of native coronary artery without angina pectoris; I73.9 Peripheral vascular disease, unspecified; M19.90 Unspecified osteoarthritis, unspecified site; Z79.01 Long term (current) use of anticoagulants
CPT/HCPCS: 80053; 84443; 85025; 96413; 99215; J7050; J9271

== ENCOUNTER 2021-07-04 13:27 | Outpatient (CLI) | payer MEDICARE, SELFPAY ==
--- NOTE | 2021-07-04 13:30 | CT_ITS ---
WS: [id number] CT CHEST, ABDOMEN AND PELVIS WITH CONTRAST HISTORY: LUNG CANCER RESTAGING TECHNIQUE: Contiguous 5 mm axial imaging performed through the chest, abdomen and pelvis with IV cont rast, oral contrast has been provided. Coronal and sagittal reformats chest. Coronal and sagittal ref ormats through the abdomen and pelvis. All CT scans at [facility] use at least one of these d ose optimization techniques: automated exposure control; mA and/or kV adjustment per patient size (in cludes targeted exams where dose is matched to clinical indication); or iterative reconstruction. CONTRAST: Visipaque 320; 95 mL IV. DLP: 1576.94 mGy.cm COMPARISON: 02/18/[address]: Status post RIGHT upper lobectomy. Volume loss in the RIGHT thorax. Stable ovoid 5 mm nodul e in the LEFT upper lobe. Nodule stable for several prior years. Focal area of subsegmental scar or a telectasis near the lingula. Curvilinear atelectasis at the LEFT lung base. No effusion. Mild enlarge ment of the heart. Very similar to the prior study. No pericardial effusion. Moderate atherosclerotic plaque and atherosclerosis within the aorta. No aneurysm. Pulmonary artery size is normal. No medias tinal or hilar adenopathy. Abdomen CT: There are multiple low-attenuation nodules within the liver. These have been present on p rior studies and most consistent with cysts. The largest in the posterior LEFT lobe measures 12 mm. N o bile duct dilatation. Gallbladder is very slightly contracted and contains stones. No adjacent infl ammation. Normal size spleen. Normal pancreas and adrenal glands. Mild bilateral perinephric strandin g. Cortical thinning and scarring in the upper pole the RIGHT kidney. No obstruction or solid mass. M oderate atherosclerosis within the abdominal aorta. Calcified plaque extends into the proximal SMA wh ere there is at least moderate stenosis. Heavy calcified plaque at the origin of the renal arteries. Calcification continues into the iliac arteries bilaterally. At least moderate stenosis involving the distal LEFT common iliac artery at its bifurcation. No GI tract obstruction. Numerous diverticula noted in the sigmoid colon. No acute diverticulitis. No soft tissue mass or obstruction. The appendix is been removed. No ascites, mesenteric or retroperitoneal adenopathy. Pelvic CT: Well-distended urinary bladder. Very slight prostate gland enlargement. No adenopathy or f ree fluid in the pelvis. Bilateral sacroiliitis. Prior orthopedic repair LEFT hip. No osteoblastic or osteolytic bone disease identified. CT/CT chest abd pel w con* IMPRESSION: 1. Status post RIGHT upper lobectomy. No recurrent mass or adenopathy. 2. Long-term stability ovoid 5 mm nodule LEFT upper lobe. 3. Hepatic cysts. No metastatic lesions. 4. Extensive atherosclerosis within the thoracic and abdominal aorta. Atherosc lerotic changes extend into the superior mesenteric artery, renal arteries and the iliac arteries with multifocal areas of at least moderate stenosis. 5. Sigmoid diverticulosis without acute diverticulitis. 6. No ascites or adenopathy. 7. No adrenal mass. Next line cholelithiasis without acute cholecystitis.
[2021-07-04] MEDS: iohexol 300 mg/mL 50 mL Btl IV (13:48)
[2021-07-04] MEDS: iodixanol 320 mg/mL 100mL Btl IV (14:51)
== END 2021-07-04 13:28 | disposition home or self-care (01) ==
PROVIDERS: PCP Nurse Practitioner Family; Visit Provider Internal Medicine Medical Oncology
DX: C34.11 Malignant neoplasm of upper lobe, right bronchus or lung (principal); Z90.2 Acquired absence of lung [part of]; K57.30 Diverticulosis of large intestine without perforation or abscess without bleeding; I70.0 Atherosclerosis of aorta; K76.89 Other specified diseases of liver; R91.1 Solitary pulmonary nodule
CPT/HCPCS: 71260; 74177

== ENCOUNTER 2021-07-23 12:42 | Outpatient (CLI) | payer MEDICARE, SELFPAY | END 2021-07-23 12:43 | disposition home or self-care (01) | LOC: ONCMED 12:46 | PROVIDERS: PCP Nurse Practitioner Family; Visit Provider Internal Medicine Medical Oncology | DX: Z51.12 Encounter for antineoplastic immunotherapy (principal); C34.90 Malignant neoplasm of unspecified part of unspecified bronchus or lung; C34.11 Malignant neoplasm of upper lobe, right bronchus or lung; I10 Essential (primary) hypertension; E78.5 Hyperlipidemia, unspecified; E11.9 Type 2 diabetes mellitus without complications; I25.10 Atherosclerotic heart disease of native coronary artery without angina pectoris; I73.9 Peripheral vascular disease, unspecified; J44.9 Chronic obstructive pulmonary disease, unspecified; Z95.1 Presence of aortocoronary bypass graft; Z79.899 Other long term (current) drug therapy; Z87.891 Personal history of nicotine dependence | CPT/HCPCS: 96413; J7050; J9271 ==

== ENCOUNTER 2021-08-13 08:31 | Outpatient (CLI) | payer MEDICARE, SELFPAY ==
[2021-08-13 09:06] LABS: Basophils # 0.1 10^3/uL (0.0-0.1); Eosinophils # 0.5 10^3/uL (0.0-0.8); Eosinophils % 7.6 %; Hemoglobin 17.5 g/dL (11.7-16.6); Lymphocytes % 16.4 %; Mean Corpuscular HGB Conc 33.7 g/dL (30.0-36.0); Mean Corpuscular Hemoglobin 30.5 pg (28.0-34.0); Mean Corpuscular Volume 90.6 fl (80-94); Mean Platelet Volume 9.6 fL (7.4-10.4); Monocytes # 0.5 10^3/uL (0.2-0.9); Monocytes % 8.5 %; Neutrophils # 4.12 10^3/uL (1.8-7.7); Neutrophils % 66.2 %; Nucleated Red Blood Cells % 0 %; Platelet Count 188 10^3/cmm (130-400); Red Blood Count 5.74 10^6/uL (4.1-5.3); Red Cell Distribution Width 13.6 % (12.1-15.1); White Blood Count 6.2 10^3/uL (4.0-10.0)
[2021-08-13 09:49] LABS: Alanine Aminotransferase 13 U/L (0-41); Albumin Level 4.3 g/dL (3.5-5.2); Alkaline Phosphatase 40 IU/L (40-130); Anion Gap 15.5 (5-19); Aspartate Amino Transferase 13 U/L (0-40); Blood Urea Nitrogen 21 mg/dL (8-23); Calcium 9.7 mg/dL (8.5-10.5); Carbon Dioxide 23 mmol/L (22-29); Chloride 102 mmol/L (98-107); Globulin 2.9 g/dL (1.3-4.6); Glucose 364 mg/dL (65-115); Osmolality Calculated 300 mOsm/kg (285-295); Potassium 4.5 mmol/L (3.5-5.1); Sodium 136 mmol/L (136-145); Thyroid Stimulating Hormone 6.45 uIU/mL (0.27-4.20); Total Bilirubin 0.9 mg/dL (0.15-1.2); Total Protein 7.2 g/dL (6.6-8.7)
--- NOTE | 2021-08-13 20:02 | ONC FU_ITS ---
Dr. Chadwick Patient Follow-Up Note Patient: Lynnette Sevilla Unit #: [id number]: [id number] Dicatated By: Shorty Chadwick M.D.Date of Visit:Aug 13, 2021 Onc Med Follow-up/Prog Note Chief Complaint: Hemochromatosis/lung cancer. 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 His disease was stage IB (T2a, N0, M0) at initial diagnosis, but with subsequent progression to stage TIGIST (M1b). He also has hereditary hemochromatosis. In February [address] Tyler with persistent cough. His evaluation included chest CT on 03/04/2017. It showed a spiculated density in the medial aspect of the anterior segment of the right upper lobe. It measured 1.8 x 2.4 x 1.8 cm and it was new compared to a previous study from November 2013. There was no associated mediastinal or hilar adenopathy, and there was no evidence of liver or adrenal metastases. He underwent bronchoscopy on 04/06/2017. There were no endobronchial lesions identified. The lesion was found to be avid by PET/CT. There was no evidence of metastatic involvement. He underwent right upper lobectomy with mediastinal lymph node biopsy on 04/29/2017. Pathology showed low-grade (grade 1-2) adenocarcinoma measuring 3.2 x 2.4 cm. There was penetration into visceral pleura and there was evidence of lymphovascular space invasion. The margins of resection were free, and there was no involvement in 1 mediastinal lymph node, in 1 lymph node at the right mainstem bronchus, and in 2 hilar lymph nodes. He has continued on observation/expectant management following the surgery, as there appeared to be no indication for adjuvant chemotherapy. I had initially seen him in October 2012 in regard to elevated hemoglobin/hematocrit levels and elevated serum iron. His evaluation at that time showed his hemoglobin elevated at 18.1 g with hematocrit 52%. White count and platelet count were normal. The serum iron was in the upper normal range at 145 mcg/dL with transferrin saturation 30.8%. The serum ferritin, though, was elevated at 606 ng/mL. He had additional evaluation including an erythropoietin level which was in the normal range at 12 mIU/mL. A MICHAEL 2 gene mutation study was negative. The HFE gene analysis showed double heterozygosity for the C282Y and the H63D mutations, consistent with hereditary hemochromatosis. He has been managed on a phlebotomy program. Surveillance chest CT on 12/07/2018 showed stable postoperative changes from prior right upper lobectomy. There was long-term stability of left upper lower lobe nodules. There was chronic emphysema. There was no evidence for recurrent or metastatic neoplastic process. He continued observation/expectant management for the lung cancer. He had then presented to Dr. Tyler's office with swelling and redness in the left arm, in the area of the antecubital fossa. Venous Doppler of the left arm on 02/11/2019 showed extensive occlusive thrombus in the left basilic vein. All other veins of the left upper extremity appeared free of thrombus. He was started on anticoagulation with apixaban. He was seen here for follow-up on 02/25/2019. He then had a restaging PET/CT on 03/10/2019. It showed interval development of abnormal activity in a lytic lesion in the left femoral neck, suspicious for metastatic disease. There was interval resolution of the small right upper lobe lung mass. There were no other areas of abnormal uptake on that study. With those findings, he was referred to Dr. Chin. On 03/17/2019 he underwent prophylactic open reduction with interval fixation of the left hip. Pathology on the bone fragments did confirm metastatic carcinoma consistent with the previous diagnosis of pulmonary infiltrating adenocarcinoma. Following recovery from the surgery he was seen by Dr. Boggs for palliative radiation. He completed treatment on 04/18/2019 to a total dose of 3900 cGy. He tolerated the treatment well. In the meantime, I had also requested a next generation sequencing study. It was performed on the original lung tumor, as the specimen from the left femur was insufficient for analysis. That study showed low PD-L1 expression at 7%. The mutation burden, though, was high. The tumor was negative for EGFR, BRAF, and KRAS mutations, and it also tested negative for the ALK and ROS1 rearrangements. The NTRK fusion also was not detected. I had seen him for a follow-up visit on 05/02/2019. He had restaging CT scans on 06/01/2019 showed no evidence for recurrent disease in the chest, abdomen, or pelvis. In the setting of a treated, solitary metastasis, he was recommended to continue on observation/expectant management. On 06/28/2019 he was seen in the emergency room with complaints of dizziness. CT of the head with and without contrast showed no acute findings. He was diagnosed with vestibular neuronitis. On 07/04/2019 he was admitted to the hospital after returning to the emergency room with acute mental status changes. His repeat head CT showed a 10 mm focal area of low-attenuation in the left frontal lobe which appeared new from the recent study. Was felt to possibly represent a subacute infarct. Further evaluation with brain MRI showed multifocal patchy areas of acute ischemia involving the YUNG territories bilaterally. The largest area of ischemia measured approximately 1 cm. There was no evidence of mass-effect or midline shift. The clinical presentation appeared most consistent with cancer related hypercoagulability. As it occurred while on a therapeutic dose of apixaban, his anticoagulation was transitioned to therapeutic Lovenox. His echocardiogram showed normal left ventricular cavity size and systolic function with estimated ejection fraction at 60%. There were no significant valvular abnormalities noted. There appeared to be no significant change compared to her previous study from July 2018. His bilateral carotid Doppler studies showed just moderate atheromatous plaque bilaterally. Head MRA showed no evidence of high-grade proximal stenosis or aneurysm. He was discharged to [facility] for rehab. At that point, he was still having significant expressive aphasia, but his confusion had improved significantly. He subsequently was able to return home. Restaging CT scans of the chest, abdomen, and pelvis on 07/25/2019 showed stable 5 mm noncalcified pulmonary nodule in the left upper lobe and a 3 mm noncalcified nodule in the left lower lobe. There was no mediastinal or hilar adenopathy. A few scattered hypodensities throughout the liver are too small to characterize but similar to prior studies. A new 7 mm hypodensity was noted in the lower pole of the right kidney. There was increased density within the lumen of a contracted gallbladder, suspicious for stones and/or chronic cholecystitis. There was no osteoblastic or osteolytic bone disease identified. On 08/03/2019 he was seen in the emergency room with dizziness. He has repeat noncontrast head CT showed atrophy and chronic deep white matter ischemic change with no acute intracranial abnormality identified. He was diagnosed with vertigo and treated with meclizine. I had seen him for a follow-up visit on 08/08/2019. He had opted to stop the Lovenox injections, and he had restarted anticoagulation with apixaban. He also was taking Plavix. He was still having some difficulty with his speech and he was having some confusion at times and some difficulty with memory. Subsequent to that visit, his had called and reported that his memory and confusion were continuing to worsen. A repeat brain MRI on 08/23/2019 showed multifocal areas of abnormal diffusion abnormalities and flair signal abnormalities. It was noted to predominantly involve the left hippocampal formation with additional more focal diffusion signal abnormalities extending towards the temporal occipital junction posteriorly. That finding appeared to be most consistent with worsening subacute infarcts. Also noted, though, were additional cortical areas of very subtle enhancement throughout the brain which were suspicious for metastatic lesions. The most concerning were in the left frontal vertex. With those findings, I was able to get his anticoagulation transition back to Lovenox. A repeat PET/CT on 09/01/2019 showed interval development of a small well-circumscribed lytic lesion in the upper femoral neck on the right measuring up to 19 mm with SUV 7.3. A small amount of fracture was noted along the posterior upper border of the left greater trochanter. Abnormal increased activity was noted along the site of the previous suspected metastatic lesion in the left femoral neck with a maximum SUV 6.2, similar to the previous study. There were no other areas of significant abnormal activity identified. Given the PET/CT findings, he was then given palliative radiation to the right hip, completed on 09/28/2019 to a total dose of 3000 cGy. He tolerated the treatment well. In the meantime, a repeat brain MRI on 09/16/2019 again showed numerous bilateral multi lobar acute lacunar infarcts. The previously described areas of enhancement are felt to most likely be related to ischemia and not to metastatic disease. At that time there was felt to be no convincing evidence for metastatic disease. I had seen him for a follow-up visit on 03/2020. At that point he was beginning to show some recovery. I had discussed options for further treatment of the lung cancer. It was quite clear that he was not interested in attempting any chemotherapy. He did agree to continue anticoagulation with Lovenox, and ultimately he also agreed to a trial of immunotherapy. His other medical illnesses include hypertension, hyperlipidemia, type 2 diabetes, coronary artery disease, peripheral vascular disease, and degenerative arthritis. He underwent coronary artery bypass surgery in 1996 and he underwent an arterial bypass procedure to the right leg in 1999. In 2013 he was found to have significant hypoxemia. On evaluation he was found to have COPD and obstructive sleep apnea. 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 Also noted was calcific plaque at the origins of the common iliac arteries at 54% on the left and 60% on the right. He has a history of smoking 1-1 1/2 packs of cigarettes daily, but he quit smoking in 1996. INTERIM HISTORY: On 11/09/2019 he began a trial of immunotherapy with pembrolizumab as a single modality. He tolerated the initial infusion of pembrolizumab with no adverse effects, and he then continued treatment at 3-week intervals. As of 02/22/2020 he completed his 6th cycle. At his follow-up visit on 03/14/2020 he had developed a significant skin eruption on his trunk, mainly the back. With that finding, had stopped both the pembrolizumab and the denosumab, I also had him start prednisone, initially at 20 mg daily. The prednisone was later reduced to 10 mg daily, as the skin eruption was resolving. He was able to restart pembrolizumab on 03/28/2020. I opted to keep the denosumab on hold, as I felt it was the more likely cause for the eruption. He then continued his pembrolizumab infusions every 3 weeks. He completed his cycle 14 on 09/13/2020. Restaging CT scans of the chest, abdomen, and pelvis on 10/02/2020 showed no evidence of disease progression. There were mild chronic emphysematous changes noted. He continued his pembrolizumab infusions every 3 weeks. At his follow-up visit on 02/07/2021 he reported increased pain in the left hip area. Bone scan on 02/18/2021 showed moderate increased uptake involving the left femoral neck with left hip x-ray showing suspected new fracture despite the presence of intramedullary marco a. It was favored to be an insufficiency fracture. There was no other evidence of metastatic bone involvement. Restaging CT scans showed no evidence of recurrent or progressive disease in the chest, abdomen, or pelvis. In particular, there was no evidence for recurrent mass at the right hilum. A 5 mm left upper lobe nodule appeared stable. There was no evidence for metastatic involvement in the liver or adrenal glands. In the absence of any evidence of disease progression, he continued treatment with pembrolizumab. During follow-up he continued to complain of pain in the left hip area and to a lesser extent in the right hip. His restaging CT scans on 07/04/2021 showed postoperative changes of right upper lobectomy with no evidence of recurrent lung mass or adenopathy. A 5 mm ovoid left upper lobe nodule showed long-term stability. Multiple hepatic lesions were stable and consistent with cysts. There was no mesenteric or retroperitoneal adenopathy. There were no osteoblastic or osteolytic bone lesions identified. There were findings of extensive atherosclerosis within the thoracic and abdominal aorta with atherosclerotic changes extending into the superior mesenteric artery, renal arteries, and iliac arteries. There were multifocal areas of at least moderate stenosis. He is seen for a follow-up visit. He has been feeling pretty good though he continues to have pain in both hips, left worse than right. He says that whenever he has been sitting he cannot just get up and go. He has to stand a little bit before he can get moving. He says his energy has been pretty good. He is able to do some light work. ECOG score is 1. He has good appetite. He has no fever or night sweats. He has not had sore mouth or throat, and he does not complain of cough. He does have some shortness of breath, which is the same. He has not been having chest pain. He has no GI/ complaints other than frequent urination. He has no other joint or bone pain, and he does not have any typical claudication type pain. He does not complain of headache, and he has no focal neurologic symptoms. He does have some ongoing issues with balance/equilibrium. Medications: Acetaminophen Extra Strength 1 (500 mg) Tablet Oral b.i.d., amLODIPine Besylate 0.5 Tablet (of 5 mg) Oral at bedtime, B-12 1 Tablet (of 1000 mcg) Tablet Oral daily, Bisacodyl 1 Tablet (of 5 mg) Tablet, enteric coated Oral daily PRN, Carvedilol 1 (25 mg) Tablet Oral b.i.d., Cholecalciferol 1 Capsule (of 2000 Units) Oral daily, Dulcolax Milk of Magnesia 30 mL (of 400 mg/5mL) Suspension Oral daily PRN, Enoxaparin Sodium 80 mg (of 300 mg/3mL) Injection b.i.d., Famotidine 1 Tablet (of 20 mg) Oral b.i.d. PRN, Fish Oil 1 (1200 mg) Capsule Oral daily, Flonase Suspension Nasal, Gabapentin 1 Tablet (of 300 mg) Oral daily, Hydrocodone-Acetaminophen 1 (5-325 mg) Tablet Oral four times a day PRN, Jardiance 0.5 Tablet (of 12.5 ) Oral daily, Lovastatin 1 Tablet (of 40 mg) Oral b.i.d., Meclizine HCl 1 Tablet (of 25 mg) Oral daily PRN, MetFORMIN HCl 1 Tablet (of 500 mg) Oral b.i.d., Plavix 1 (75 mg) Tablet Oral daily, Spiriva Respimat Aerosol, solution Inhalation, Tamsulosin HCl 1 (0.4 mg) Capsule Oral daily Allergies: PENICILLIN AND ALEVE Vital Signs: Performed on Aug 13, 2021 11:32 Height - 65.00 in Weight - 178.4 lbs (HIGH) BSA - 1.88 sq.m BMI - 29.69 Temperature - 97.3 F (LOW) Pulse - 60 /min Respiration - 18 /min BP - 133/70 mm(hg) O2 Sat - 98 % Pain - 5 Fatigue - 4 Physical Examination: Constitutional - He looks pretty good generally, Eyes - Sclerae nonicteric. Conjunctivae clear, ENMT - No lesions noted in the oral cavity, Hematologic/Lymphatic - No cervical, clavicular, or axillary adenopathy, Respiratory - Lungs sound clear with some decrease in air movement bilaterally, Cardiovascular - Heart rhythm is regular. There is no murmur, gallop, or rub noted, Abdomen - Soft. Liver and spleen are not enlarged. There is no abdominal mass or ascites noted and there is no inguinal adenopathy, Extremities - No edema. He has developed a small, slightly bluish, raised lesion on the dorsum of the left foot near the site where the left great toe base adjoins the second toe. I have not able to palpate pedal pulses, but both feet are warm to touch, Neurologic - No focal neurologic deficits noted. Lab/Imaging: Test performed on Aug 13, 2021 09:00 Sodium 136 mmol/L TSH 6.45 uIU/mL Potassium 4.5 mmol/L Chloride 102 mmol/L CO2 23 mmol/L Anion Gap 15.5 BUN 21 mg/dL Creatinine 0.8 mg/dL Cr Clearance (Est) 85.70 mL/min Glucose 364 mg/dL Osmolality - Calculated 300 mOsm/kg Calcium 9.7 mg/dL Protein, Total 7.2 g/dL Albumin 4.3 g/dL Globulin 2.9 g/dL Bilirubin, Total 0.9 mg/dL ALT (SGPT) 13 U/L AST (SGOT) 13 U/L Alkaline Phosphatase 40 IU/L WBC 6.2 10 3/uL RBC 5.74 10 6/uL HGB 17.5 g/dL HCT 52.0 % MCV 90.6 fl MCH 30.5 pg MCHC 33.7 g/dL RDW 13.6 % Platelet Count 188 10 3/cmm MPV 9.6 fL Neutrophils 4.12 10 3/uL Lymphocytes 1.0 10 3/uL Monocytes 0.5 10 3/uL Eosinophils 0.5 10 3/uL Basophils 0.1 10 3/uL Neutrophil % 66.2 % Lymphocyte % 16.4 % Monocyte % 8.5 % Eosinophil % 7.6 % Basophils % 1.0 % NRBC % 0 % Problem List: 1. Nonsmall cell cancer (low-grade adenocarcinoma) involving the upper lobe of the right lung, stage IB (T2a, N0, M0). He underwent right upper lobectomy with mediastinal lymph node biopsy on 04/29/2017. He had subsequent progression to stage IVB (M1c) with multiple sites of metastatic bone involvement. 2. A next generation sequencing study on his primary lung tumor showed low PD-L1 expression at 7%. The mutation burden was high. There were no actionable mutations identified. 3. 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 4. He has hereditary hemochromatosis. He was found to be doubly heterozygous for the C282Y and the H63D mutations. He has had a very good response to phlebotomy, with his subsequent ferritin levels maintained at less than 50 ng/mL compared to a pretreatment level of greater than 600. 5. He has underlying lung disease including COPD and obstructive sleep apnea, and he has associated chronic hypoxia. 6. Hypertension. 7. Hyperlipidemia. 8. Type II diabetes. 9. Coronary artery disease. 10. Peripheral arterial disease. 11. Degenerative arthritis. Problems Addressed with this Encounter and Plan: 1. Patient with nonsmall cell cancer (low-grade adenocarcinoma) involving the upper lobe of the right lung, stage IB (T2a, N0, M0). He underwent right upper lobectomy with mediastinal lymph node biopsy on 04/29/2017. He had subsequent progression to stage IVB (M1c) with multiple sites of metastatic bone involvement. A next generation sequencing study on his primary lung tumor showed low PD-L1 expression at 7%. The mutation burden was high. There were no actionable mutations identified. His restaging PET/CT on 03/10/2019 showed evidence of a single site of metastatic disease in the form of a lytic bone lesion in the left femoral neck. He underwent prophylactic ORIF of the left hip on 03/17/2019. Pathology confirmed metastatic adenocarcinoma. Following recovery from the surgery, he was seen by Dr. Boggs for palliative radiation. He completed treatment on 04/18/2019 to a total dose of 3900 cGy. A repeat PET/CT on 09/01/2019 showed a new small metastatic lesion in the right proximal femur. There was residual activity at the site of the metastatic lesion in the left femur. There were no other areas of abnormal activity noted on that study. He was then given palliative radiation to the right hip, completed on 09/28/2019 to a total dose of 3000 cGy. On 11/09/2019 he began a trial of immunotherapy with pembrolizumab. He tolerated the initial infusion of pembrolizumab with no adverse effects, and he then continued treatment at 3-week intervals. During that time he also began denosumab injections for the metastatic bone involvement. As of his follow-up visit on 03/14/2020 both the pembrolizumab and the denosumab were put on hold to development of skin eruption. The eruption gradually resolved on steroid therapy, and he was able to resume pembrolizumab on 03/28/2020. He was able to taper off prednisone, but with some persistent itching on his back, which he was able manage topically with CeraVe. He had otherwise tolerated treatment well. His restaging CT scans on 06/18/2020 showed no evidence of metastatic disease. He continued treatment with pembrolizumab at 3-week intervals. His restaging CT scans on 10/02/2020 showed no evidence of disease progression, and he continued his same treatment. As of his follow-up visit on 02/07/2021 he was reporting some increasing pain in the posterior hip area on both sides. On restaging evaluation, he was found evidence of a fracture in the left femoral neck extending into the proximal femur. There was no indication for treatment, and there was no evidence for progression of the lung cancer. In the absence of any evidence of disease progression he continued treatment with pembrolizumab at 200 mg by IV infusion every 3 weeks. He has since then continued to have pain in both hips, left worse than right. However, as of June 2021 has still been no evidence of progression of bony metastatic disease and there has been no other evidence for disease progression by CT scan. He has otherwise been stable clinically. As such, he continues treatment with pembrolizumab 200 mg by IV infusion. He will return for treatment in 3 weeks and for a follow-up visit in 6 weeks. 2. 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 He continues anticoagulation with Lovenox. 3. He has hereditary hemochromatosis. He has been managed with phlebotomy. I will repeat serum iron studies and ferritin with his next visit. 4. He has slightly elevated TSH, which is likely treatment related. It is being monitored. Signed By: Shorty Chadwick M.D. <<Signature on File>>
== END 2021-08-13 08:32 | disposition home or self-care (01) ==
PROVIDERS: PCP Nurse Practitioner Family; Visit Provider Internal Medicine Medical Oncology
DX: Z51.12 Encounter for antineoplastic immunotherapy (principal); C34.11 Malignant neoplasm of upper lobe, right bronchus or lung; C79.51 Secondary malignant neoplasm of bone; I74.9 Embolism and thrombosis of unspecified artery; E83.110 Hereditary hemochromatosis; J44.9 Chronic obstructive pulmonary disease, unspecified; I10 Essential (primary) hypertension; E78.5 Hyperlipidemia, unspecified; E11.9 Type 2 diabetes mellitus without complications; I25.10 Atherosclerotic heart disease of native coronary artery without angina pectoris; I73.9 Peripheral vascular disease, unspecified
CPT/HCPCS: 80053; 84443; 85025; 96413; 99215; J7050; J9271

== ENCOUNTER 2021-09-03 11:29 | Outpatient (CLI) | payer MEDICARE, SELFPAY | END 2021-09-03 11:30 | disposition home or self-care (01) | PROVIDERS: PCP Nurse Practitioner Family; Visit Provider Internal Medicine Medical Oncology | DX: Z51.12 Encounter for antineoplastic immunotherapy (principal); C34.11 Malignant neoplasm of upper lobe, right bronchus or lung; I10 Essential (primary) hypertension; E78.5 Hyperlipidemia, unspecified; E11.9 Type 2 diabetes mellitus without complications; I73.9 Peripheral vascular disease, unspecified; Z95.1 Presence of aortocoronary bypass graft; J44.9 Chronic obstructive pulmonary disease, unspecified; G47.33 Obstructive sleep apnea (adult) (pediatric); Z79.899 Other long term (current) drug therapy | CPT/HCPCS: 96413; J7050; J9271 ==

== ENCOUNTER → 2021-09-23 09:35 | Outpatient (BNVA) | payer MEDICARE, SELFPAY | PROVIDERS: PCP Nurse Practitioner Family; Referring Provider Nurse Practitioner Family; Visit Provider Podiatrist Foot & Ankle Surgery | DX: L60.3 Nail dystrophy (principal); M67.40 Ganglion, unspecified site; E11.42 Type 2 diabetes mellitus with diabetic polyneuropathy; Z79.4 Long term (current) use of insulin; I73.9 Peripheral vascular disease, unspecified | CPT/HCPCS: 99214 ==

== ENCOUNTER 2021-09-24 09:02 | Outpatient (CLI) | payer MEDICARE, SELFPAY ==
[2021-09-24 09:45] LABS: Basophils # 0.1 10^3/uL (0.0-0.1); Basophils % 1.2 %; Eosinophils # 0.4 10^3/uL (0.0-0.8); Eosinophils % 7.2 %; Hematocrit 50.6 % (42.0-52.0); Hemoglobin 17.1 g/dL (11.7-16.6); Lymphocytes # 0.8 10^3/uL (0.8-4.8); Mean Corpuscular HGB Conc 33.8 g/dL (30.0-36.0); Mean Corpuscular Hemoglobin 30.8 pg (28.0-34.0); Mean Platelet Volume 9.6 fL (7.4-10.4); Monocytes # 0.4 10^3/uL (0.2-0.9); Monocytes % 8.6 %; Neutrophils # 3.48 10^3/uL (1.8-7.7); Neutrophils % 67.8 %; Nucleated Red Blood Cells % 0 %; Platelet Count 190 10^3/cmm (130-400); Red Blood Count 5.56 10^6/uL (4.1-5.3); Red Cell Distribution Width 13.2 % (12.1-15.1); White Blood Count 5.1 10^3/uL (4.0-10.0)
[2021-09-24 10:15] LABS: Alanine Aminotransferase 11 U/L (0-41); Albumin Level 4.1 g/dL (3.5-5.2); Alkaline Phosphatase 43 IU/L (40-130); Anion Gap 15.5 (5-19); Aspartate Amino Transferase 11 U/L (0-40); Blood Urea Nitrogen 18 mg/dL (8-23); Carbon Dioxide 24 mmol/L (22-29); Chloride 98 mmol/L (98-107); Ferritin 97 ng/mL (30-400); Glucose 327 mg/dL (65-115); Iron 84 ug/dL (59-158); Osmolality Calculated 291 mOsm/kg (285-295); Percent Saturation 28.3 % (20-50); Potassium 4.5 mmol/L (3.5-5.1); Sodium 133 mmol/L (136-145); Thyroid Stimulating Hormone 5.82 uIU/mL (0.27-4.20); Total Bilirubin 0.8 mg/dL (0.15-1.2); Total Iron Binding Capacity 296 mcg/dl; Total Protein 7.1 g/dL (6.6-8.7); Unsaturated Iron Binding 212 ug/dL (112-347)
[2021-09-24] MEDS: sodium chloride 0.9% 250 ML 125 ML IV (12:15)
--- NOTE | 2021-09-29 21:54 | ONC FU_ITS ---
Shani White Progress Note Patient: Lynnette Sevilla Unit #: [id number]: 1940 Dicatated By: Shani White N.P.Date of Visit:Sep 24, 2021 Onc MED Follow-up/Prog Note Chief Complaint: Hemochromatosis/lung cancer. 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 His disease was stage IB (T2a, N0, M0) at initial diagnosis, but with subsequent progression to stage TIGIST (M1b). He also has hereditary hemochromatosis. In February [address] Tyler with persistent cough. His evaluation included chest CT on 03/04/2017. It showed a spiculated density in the medial aspect of the anterior segment of the right upper lobe. It measured 1.8 x 2.4 x 1.8 cm and it was new compared to a previous study from November 2013. There was no associated mediastinal or hilar adenopathy, and there was no evidence of liver or adrenal metastases. He underwent bronchoscopy on 04/06/2017. There were no endobronchial lesions identified. The lesion was found to be avid by PET/CT. There was no evidence of metastatic involvement. He underwent right upper lobectomy with mediastinal lymph node biopsy on 04/29/2017. Pathology showed low-grade (grade 1-2) adenocarcinoma measuring 3.2 x 2.4 cm. There was penetration into visceral pleura and there was evidence of lymphovascular space invasion. The margins of resection were free, and there was no involvement in 1 mediastinal lymph node, in 1 lymph node at the right mainstem bronchus, and in 2 hilar lymph nodes. He has continued on observation/expectant management following the surgery, as there appeared to be no indication for adjuvant chemotherapy. Dr. Chadwick had initially seen him in October 2012 in regard to elevated hemoglobin/hematocrit levels and elevated serum iron. His evaluation at that time showed his hemoglobin elevated at 18.1 g with hematocrit 52%. White count and platelet count were normal. The serum iron was in the upper normal range at 145 mcg/dL with transferrin saturation 30.8%. The serum ferritin, though, was elevated at 606 ng/mL. He had additional evaluation including an erythropoietin level which was in the normal range at 12 mIU/mL. A MICHAEL 2 gene mutation study was negative. The HFE gene analysis showed double heterozygosity for the C282Y and the H63D mutations, consistent with hereditary hemochromatosis. He has been managed on a phlebotomy program. Surveillance chest CT on 12/07/2018 showed stable postoperative changes from prior right upper lobectomy. There was long-term stability of left upper lower lobe nodules. There was chronic emphysema. There was no evidence for recurrent or metastatic neoplastic process. He continued observation/expectant management for the lung cancer. He had then presented to Dr. Tyler's office with swelling and redness in the left arm, in the area of the antecubital fossa. Venous Doppler of the left arm on 02/11/2019 showed extensive occlusive thrombus in the left basilic vein. All other veins of the left upper extremity appeared free of thrombus. He was started on anticoagulation with apixaban. He was seen here for follow-up on 02/25/2019. He then had a restaging PET/CT on 03/10/2019. It showed interval development of abnormal activity in a lytic lesion in the left femoral neck, suspicious for metastatic disease. There was interval resolution of the small right upper lobe lung mass. There were no other areas of abnormal uptake on that study. With those findings, he was referred to Dr. Chin. On 03/17/2019 he underwent prophylactic open reduction with interval fixation of the left hip. Pathology on the bone fragments did confirm metastatic carcinoma consistent with the previous diagnosis of pulmonary infiltrating adenocarcinoma. Following recovery from the surgery he was seen by Dr. Boggs for palliative radiation. He completed treatment on 04/18/2019 to a total dose of 3900 cGy. He tolerated the treatment well. In the meantime, Dr. Chadwick had also requested a next generation sequencing study. It was performed on the original lung tumor, as the specimen from the left femur was insufficient for analysis. That study showed low PD-L1 expression at 7%. The mutation burden, though, was high. The tumor was negative for EGFR, BRAF, and KRAS mutations, and it also tested negative for the ALK and ROS1 rearrangements. The NTRK fusion also was not detected. Dr. Chadwick had seen him for a follow-up visit on 05/02/2019. He had restaging CT scans on 06/01/2019 showed no evidence for recurrent disease in the chest, abdomen, or pelvis. In the setting of a treated, solitary metastasis, he was recommended to continue on observation/expectant management. On 06/28/2019 he was seen in the emergency room with complaints of dizziness. CT of the head with and without contrast showed no acute findings. He was diagnosed with vestibular neuronitis. On 07/04/2019 he was admitted to the hospital after returning to the emergency room with acute mental status changes. His repeat head CT showed a 10 mm focal area of low-attenuation in the left frontal lobe which appeared new from the recent study. Was felt to possibly represent a subacute infarct. Further evaluation with brain MRI showed multifocal patchy areas of acute ischemia involving the YUNG territories bilaterally. The largest area of ischemia measured approximately 1 cm. There was no evidence of mass-effect or midline shift. The clinical presentation appeared most consistent with cancer related hypercoagulability. As it occurred while on a therapeutic dose of apixaban, his anticoagulation was transitioned to therapeutic Lovenox. His echocardiogram showed normal left ventricular cavity size and systolic function with estimated ejection fraction at 60%. There were no significant valvular abnormalities noted. There appeared to be no significant change compared to her previous study from July 2018. His bilateral carotid Doppler studies showed just moderate atheromatous plaque bilaterally. Head MRA showed no evidence of high-grade proximal stenosis or aneurysm. He was discharged to [facility] for rehab. At that point, he was still having significant expressive aphasia, but his confusion had improved significantly. He subsequently was able to return home. Restaging CT scans of the chest, abdomen, and pelvis on 07/25/2019 showed stable 5 mm noncalcified pulmonary nodule in the left upper lobe and a 3 mm noncalcified nodule in the left lower lobe. There was no mediastinal or hilar adenopathy. A few scattered hypodensities throughout the liver are too small to characterize but similar to prior studies. A new 7 mm hypodensity was noted in the lower pole of the right kidney. There was increased density within the lumen of a contracted gallbladder, suspicious for stones and/or chronic cholecystitis. There was no osteoblastic or osteolytic bone disease identified. On 08/03/2019 he was seen in the emergency room with dizziness. He has repeat noncontrast head CT showed atrophy and chronic deep white matter ischemic change with no acute intracranial abnormality identified. He was diagnosed with vertigo and treated with meclizine. Dr. Chadwick had seen him for a follow-up visit on 08/08/2019. He had opted to stop the Lovenox injections, and he had restarted anticoagulation with apixaban. He also was taking Plavix. He was still having some difficulty with his speech and he was having some confusion at times and some difficulty with memory. Subsequent to that visit, his had called and reported that his memory and confusion were continuing to worsen. A repeat brain MRI on 08/23/2019 showed multifocal areas of abnormal diffusion abnormalities and flair signal abnormalities. It was noted to predominantly involve the left hippocampal formation with additional more focal diffusion signal abnormalities extending towards the temporal occipital junction posteriorly. That finding appeared to be most consistent with worsening subacute infarcts. Also noted, though, were additional cortical areas of very subtle enhancement throughout the brain which were suspicious for metastatic lesions. The most concerning were in the left frontal vertex. With those findings, Dr. Chadwick was able to get his anticoagulation transition back to Lovenox. A repeat PET/CT on 09/01/2019 showed interval development of a small well-circumscribed lytic lesion in the upper femoral neck on the right measuring up to 19 mm with SUV 7.3. A small amount of fracture was noted along the posterior upper border of the left greater trochanter. Abnormal increased activity was noted along the site of the previous suspected metastatic lesion in the left femoral neck with a maximum SUV 6.2, similar to the previous study. There were no other areas of significant abnormal activity identified. Given the PET/CT findings, he was then given palliative radiation to the right hip, completed on 09/28/2019 to a total dose of 3000 cGy. He tolerated the treatment well. In the meantime, a repeat brain MRI on 09/16/2019 again showed numerous bilateral multi lobar acute lacunar infarcts. The previously described areas of enhancement are felt to most likely be related to ischemia and not to metastatic disease. At that time there was felt to be no convincing evidence for metastatic disease. I had seen him for a follow-up visit on 03/2020. At that point he was beginning to show some recovery. Dr. Chadwick had discussed options for further treatment of the lung cancer. It was quite clear that he was not interested in attempting any chemotherapy. He did agree to continue anticoagulation with Lovenox, and ultimately he also agreed to a trial of immunotherapy. His other medical illnesses include hypertension, hyperlipidemia, type 2 diabetes, coronary artery disease, peripheral vascular disease, and degenerative arthritis. He underwent coronary artery bypass surgery in 1996 and he underwent an arterial bypass procedure to the right leg in 1999. In 2013 he was found to have significant hypoxemia. On evaluation he was found to have COPD and obstructive sleep apnea. 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 Also noted was calcific plaque at the origins of the common iliac arteries at 54% on the left and 60% on the right. He has a history of smoking 1-1 1/2 packs of cigarettes daily, but he quit smoking in 1996. INTERIM HISTORY: On 11/09/2019 he began a trial of immunotherapy with pembrolizumab as a single modality. He tolerated the initial infusion of pembrolizumab with no adverse effects, and he then continued treatment at 3-week intervals. As of 02/22/2020 he completed his 6th cycle. At his follow-up visit on 03/14/2020 he had developed a significant skin eruption on his trunk, mainly the back. With that finding, had stopped both the pembrolizumab and the denosumab, Dr. Chadwick also had him start prednisone, initially at 20 mg daily. The prednisone was later reduced to 10 mg daily, as the skin eruption was resolving. He was able to restart pembrolizumab on 03/28/2020. Dr. Chadwick opted to keep the denosumab on hold, as he felt it was the more likely cause for the eruption. He then continued his pembrolizumab infusions every 3 weeks. He completed his cycle 14 on 09/13/2020. Restaging CT scans of the chest, abdomen, and pelvis on 10/02/2020 showed no evidence of disease progression. There were mild chronic emphysematous changes noted. He continued his pembrolizumab infusions every 3 weeks. At his follow-up visit on 02/07/2021 he reported increased pain in the left hip area. Bone scan on 02/18/2021 showed moderate increased uptake involving the left femoral neck with left hip x-ray showing suspected new fracture despite the presence of intramedullary marco a. It was favored to be an insufficiency fracture. There was no other evidence of metastatic bone involvement. Restaging CT scans showed no evidence of recurrent or progressive disease in the chest, abdomen, or pelvis. In particular, there was no evidence for recurrent mass at the right hilum. A 5 mm left upper lobe nodule appeared stable. There was no evidence for metastatic involvement in the liver or adrenal glands. In the absence of any evidence of disease progression, he continued treatment with pembrolizumab. During follow-up he continued to complain of pain in the left hip area and to a lesser extent in the right hip. His restaging CT scans on 07/04/2021 showed postoperative changes of right upper lobectomy with no evidence of recurrent lung mass or adenopathy. A 5 mm ovoid left upper lobe nodule showed long-term stability. Multiple hepatic lesions were stable and consistent with cysts. There was no mesenteric or retroperitoneal adenopathy. There were no osteoblastic or osteolytic bone lesions identified. There were findings of extensive atherosclerosis within the thoracic and abdominal aorta with atherosclerotic changes extending into the superior mesenteric artery, renal arteries, and iliac arteries. There were multifocal areas of at least moderate stenosis. Patient presents today for follow-up. He has a moderate amount of fatigue. His appetite is good. No fever, chills, night sweats. No sinus drainage or mouth sores. He has some mild shortness of breath with exertion but this is not a new symptom. No cough or chest pain. No GI problems or problems. He does have bilateral hip pain especially in the left hip that causes him quite a bit of pain. He denies headache or dizziness but he does state that his equilibrium is off quite often. Review Of Symptoms: See above. Past Medical History: Coronary artery disease Deep vein thrombosis Degenerative arthritis Hyperlipidemia Hypertension Peripheral vascular disease Type II diabetes His medical illnesses include hypertension, hyperlipidemia, type 2 diabetes, coronary artery disease, peripheral vascular disease, and degenerative arthritis. Past Surgical History: Heart by-pass - quadruple bypass Covid vaccine #2???Moderna in 2020 Flu vac[facility] 2019 Left femoral neck biopsy in 2018 Open reduction internal fixation Left hip-Dr Chin in 2019 Right upper lobectomy with mediastinal lymph node biopsy-Dr Rivers in 2017 He underwent coronary artery bypass surgery in 1996 and an arterial bypass procedure to the right leg in 1999. His only other surgery was an appendectomy in 1955. Allergies: PENICILLIN AND ALEVE Medications: Acetaminophen Extra Strength 1 (500 mg) Tablet Oral b.i.d. amLODIPine Besylate 0.5 Tablet (of 5 mg) Oral at bedtime B-12 1 Tablet (of 1000 mcg) Tablet Oral daily Bisacodyl 1 Tablet (of 5 mg) Tablet, enteric coated Oral daily PRN Carvedilol 1 (25 mg) Tablet Oral b.i.d. Cholecalciferol 1 Capsule (of 2000 Units) Oral daily Dulcolax Milk of Magnesia 30 mL (of 400 mg/5mL) Suspension Oral daily PRN Enoxaparin Sodium 80 mg (of 300 mg/3mL) Injection b.i.d. Famotidine 1 Tablet (of 20 mg) Oral b.i.d. PRN Fish Oil 1 (1200 mg) Capsule Oral daily Flonase Suspension Nasal Gabapentin 1 Tablet (of 300 mg) Oral daily Hydrocodone-Acetaminophen 1 (5-325 mg) Tablet Oral four times a day PRN Jardiance 0.5 Tablet (of 12.5 ) Oral daily Lovastatin 1 Tablet (of 40 mg) Oral b.i.d. Meclizine HCl 1 Tablet (of 25 mg) Oral daily PRN MetFORMIN HCl 1 Tablet (of 500 mg) Oral b.i.d. Plavix 1 (75 mg) Tablet Oral daily Spiriva Respimat Aerosol, solution Inhalation Tamsulosin HCl 1 (0.4 mg) Capsule Oral daily Family History: His father following stomach surgery at age 66. His mother had diabetes and with kidney thought here at age 74. A half-brother had alcoholic cirrhosis and as a result of an injury. A sister of leukemia at age 6. 3 other sisters and one brother are still living and in good health. Social History: Mr. Sevilla is and he is retired. Mr. Sevilla quit smoking 18 years ago but had smoked 1.5 packs/day for 23 years. He quit drinking 12 years ago. He has indicated exposure to the following products: cigarettes. Mr. Sevilla reports the following support systems: lives with spouse, significant other, family, or friends, lives in own house, supportive family/friends willing to assist with needs, and adequate transportation available for expected visits. His diet consists of regular meals. He indicates his activity level as: daily activities. He is retired. He had previously smoked up to a pack and a half of cigarettes daily. He quit in 1996. He has had social alcohol use in the past. He has had no alcohol use for at least 10 years or more. Physical Examination: Performed on Sep 24, 2021 11:21: Height - 65.00 in, Weight - 177 lbs (LOW), BSA - 1.88 sq.m, BMI - 29.45, Temperature - 97.8 F (LOW), Pulse - 61 /min, Respiration - 20 /min, BP - 131/73 mm(hg), O2 Sat - 93 % (LOW), Pain - 7, and Fatigue - 6. Performance Status: 1 - No physically strenuous activity, but ambulatory and able to carry out light or sedentary work (e.g. office work, light house work). (ECOG) Constitutional Alert, cooperative, oriented. Mood and affect appropriate. Appears close to chronological age. Well nourished. Well developed. Head Normocephalic; no scars. Respiratory Lungs are clear to auscultation without rhonchi or wheezing. Cardiovascular Regular rate and rhythm of heart without murmurs, gallops or rubs. Abdomen Non-tender, non-distended, no masses, ascites or hepatosplenomegaly. Good bowel sounds. No guarding or rebound tenderness. Musculoskeletal Left hip pain and tenderness Psychiatric Alert and oriented times three. Coherent speech. Verbalizes understanding of our discussions today. Laboratory: Test performed on Sep 24, 2021 09:30 Ferritin 97 ng/mL Iron 84 mcg/dL Sodium 133 mmol/L TSH 5.82 uIU/mL Iron Binding Capacity (TIBC) 296 mcg/dl Potassium 4.5 mmol/L % Iron Saturation 28.3 % Chloride 98 mmol/L CO2 24 mmol/L UIBC 212 mcg/dL Anion Gap 15.5 BUN 18 mg/dL Creatinine 0.8 mg/dL Cr Clearance (Est) 85.0300 mL/min Glucose 327 mg/dL Osmolality - Calculated 291 mOsm/kg Calcium 10.0 mg/dL Protein, Total 7.1 g/dL Albumin 4.1 g/dL Globulin 3.0 g/dL Bilirubin, Total 0.8 mg/dL ALT (SGPT) 11 U/L AST (SGOT) 11 U/L Alkaline Phosphatase 43 IU/L WBC 5.1 10 3/uL RBC 5.56 10 6/uL HGB 17.1 g/dL HCT 50.6 % MCV 91.0 fl MCH 30.8 pg MCHC 33.8 g/dL RDW 13.2 % Platelet Count 190 10 3/cmm MPV 9.6 fL Neutrophils 3.48 10 3/uL Lymphocytes 0.8 10 3/uL Monocytes 0.4 10 3/uL Eosinophils 0.4 10 3/uL Basophils 0.1 10 3/uL Neutrophil % 67.8 % Lymphocyte % 15.0 % Monocyte % 8.6 % Eosinophil % 7.2 % Basophils % 1.2 % NRBC % 0 % Test performed on Jun 11, 2021 09:02 Est Avg Glucose (eAG) 240 mg/dL Hemoglobin A1C % 10.0 % Test performed on May 01, 2021 09:35 T4, Free 1.30 ng/dL Impression: 1. Nonsmall cell cancer (low-grade adenocarcinoma) involving the upper lobe of the right lung, stage IB (T2a, N0, M0). He underwent right upper lobectomy with mediastinal lymph node biopsy on 04/29/2017. He had subsequent progression to stage IVB (M1c) with multiple sites of metastatic bone involvement. 2. A next generation sequencing study on his primary lung tumor showed low PD-L1 expression at 7%. The mutation burden was high. There were no actionable mutations identified. 3. 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 4. He has hereditary hemochromatosis. He was found to be doubly heterozygous for the C282Y and the H63D mutations. He has had a very good response to phlebotomy, with his subsequent ferritin levels maintained at less than 50 ng/mL compared to a pretreatment level of greater than 600. 5. He has underlying lung disease including COPD and obstructive sleep apnea, and he has associated chronic hypoxia. 6. Hypertension. 7. Hyperlipidemia. 8. Type II diabetes. 9. Coronary artery disease. 10. Peripheral arterial disease. 11. Degenerative arthritis. Plan: 1. Patient with nonsmall cell cancer (low-grade adenocarcinoma) involving the upper lobe of the right lung, stage IB (T2a, N0, M0). He underwent right upper lobectomy with mediastinal lymph node biopsy on 04/29/2017. He had subsequent progression to stage IVB (M1c) with multiple sites of metastatic bone involvement. A next generation sequencing study on his primary lung tumor showed low PD-L1 expression at 7%. The mutation burden was high. There were no actionable mutations identified. His restaging PET/CT on 03/10/2019 showed evidence of a single site of metastatic disease in the form of a lytic bone lesion in the left femoral neck. He underwent prophylactic ORIF of the left hip on 03/17/2019. Pathology confirmed metastatic adenocarcinoma. Following recovery from the surgery, he was seen by Dr. Boggs for palliative radiation. He completed treatment on 04/18/2019 to a total dose of 3900 cGy. A repeat PET/CT on 09/01/2019 showed a new small metastatic lesion in the right proximal femur. There was residual activity at the site of the metastatic lesion in the left femur. There were no other areas of abnormal activity noted on that study. He was then given palliative radiation to the right hip, completed on 09/28/2019 to a total dose of 3000 cGy. On 11/09/2019 he began a trial of immunotherapy with pembrolizumab. He tolerated the initial infusion of pembrolizumab with no adverse effects, and he then continued treatment at 3-week intervals. During that time he also began denosumab injections for the metastatic bone involvement. As of his follow-up visit on 03/14/2020 both the pembrolizumab and the denosumab were put on hold to development of skin eruption. The eruption gradually resolved on steroid therapy, and he was able to resume pembrolizumab on 03/28/2020. He was able to taper off prednisone, but with some persistent itching on his back, which he was able manage topically with CeraVe. He had otherwise tolerated treatment well. His restaging CT scans on 06/18/2020 showed no evidence of metastatic disease. He continued treatment with pembrolizumab at 3-week intervals. His restaging CT scans on 10/02/2020 showed no evidence of disease progression, and he continued his same treatment. As of his follow-up visit on 02/07/2021 he was reporting some increasing pain in the posterior hip area on both sides. On restaging evaluation, he was found evidence of a fracture in the left femoral neck extending into the proximal femur. There was no indication for treatment, and there was no evidence for progression of the lung cancer. In the absence of any evidence of disease progression he continued treatment with pembrolizumab at 200 mg by IV infusion every 3 weeks. In June 2021 has still been no evidence of progression of bony metastatic disease and there has been no other evidence for disease progression by CT scan. Patient presents today for follow-up. He continues to have ongoing issues with left hip pain and problems with his gait due to his equilibrium. He has agreed to try physical therapy to help with his gait and possibly help with his hip pain. He will continue his treatment with pembrolizumab at 200 mg IV infusion every 3 weeks. He will return to the clinic in 3 weeks with CBC and CMP. 2. 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 He continues anticoagulation with Lovenox. 3. He has hereditary hemochromatosis. He has been managed with phlebotomy. His iron studies were repeated today and his ferritin is at 97, iron 84, and iron saturation at 28.3. We will continue to monitor. 4. He has slightly elevated TSH, which is likely treatment related. It is being monitored. Signed By: Shani White N.P. <<Signature on File>>
== END 2021-09-24 09:03 | disposition home or self-care (01) ==
PROVIDERS: PCP Nurse Practitioner Family; Visit Provider Internal Medicine Medical Oncology
DX: Z51.12 Encounter for antineoplastic immunotherapy (principal); C34.11 Malignant neoplasm of upper lobe, right bronchus or lung; C77.2 Secondary and unspecified malignant neoplasm of intra-abdominal lymph nodes; C79.51 Secondary malignant neoplasm of bone; E83.110 Hereditary hemochromatosis; J44.9 Chronic obstructive pulmonary disease, unspecified; G47.33 Obstructive sleep apnea (adult) (pediatric); R09.02 Hypoxemia; M25.552 Pain in left hip; R26.9 Unspecified abnormalities of gait and mobility; R79.89 Other specified abnormal findings of blood chemistry; Z86.718 Personal history of other venous thrombosis and embolism; Z86.73 Personal history of transient ischemic attack (TIA), and cerebral infarction without residual deficits; Z96.642 Presence of left artificial hip joint; Z79.01 Long term (current) use of anticoagulants; Z79.899 Other long term (current) drug therapy
CPT/HCPCS: 80053; 82728; 83540; 83550; 84443; 85025; 96413; 99215; J7050; J9271

== ENCOUNTER 2021-10-14 13:18 | Outpatient (RCR) | payer MEDICARE, SELFPAY | END 2021-10-19 23:59 | disposition home or self-care (01) | LOC: SPT 13:18 | PROVIDERS: PCP Nurse Practitioner Family; Referring Provider Nurse Practitioner Family; Visit Provider Nurse Practitioner Family | DX: M25.552 Pain in left hip (principal) | CPT/HCPCS: 97161 ==

== ENCOUNTER 2021-10-15 12:14 | Outpatient (CLI) | payer MEDICARE, SELFPAY ==
[2021-10-15 12:59] LABS: Basophils # 0.1 10^3/uL (0.0-0.1); Basophils % 0.9 %; Eosinophils # 0.3 10^3/uL (0.0-0.8); Eosinophils % 6.1 %; Hematocrit 51.5 % (42.0-52.0); Hemoglobin 17.9 g/dL (11.7-16.6); Lymphocytes # 1.2 10^3/uL (0.8-4.8); Mean Corpuscular HGB Conc 34.8 g/dL (30.0-36.0); Mean Corpuscular Hemoglobin 30.5 pg (28.0-34.0); Mean Corpuscular Volume 87.7 fl (80-94); Mean Platelet Volume 9.8 fL (7.4-10.4); Monocytes # 0.5 10^3/uL (0.2-0.9); Neutrophils % 62.6 %; Nucleated Red Blood Cells % 0 %; Platelet Count 198 10^3/cmm (130-400); Red Blood Count 5.87 10^6/uL (4.1-5.3); Red Cell Distribution Width 12.6 % (12.1-15.1); White Blood Count 5.6 10^3/uL (4.0-10.0)
[2021-10-15 14:36] LABS: Alanine Aminotransferase 14 U/L (0-41); Albumin Level 4.5 g/dL (3.5-5.2); Alkaline Phosphatase 49 IU/L (40-130); Anion Gap 15.4 (5-19); Aspartate Amino Transferase 14 U/L (0-40); Blood Urea Nitrogen 22 mg/dL (8-23); Calcium 9.3 mg/dL (8.5-10.5); Carbon Dioxide 28 mmol/L (22-29); Chloride 96 mmol/L (98-107); Globulin 2.3 g/dL (1.3-4.6); Glucose 302 mg/dL (65-115); Osmolality Calculated 295 mOsm/kg (285-295); Potassium 4.4 mmol/L (3.5-5.1); Sodium 135 mmol/L (136-145); Total Bilirubin 0.9 mg/dL (0.15-1.2); Total Protein 6.8 g/dL (6.6-8.7)
[2021-10-15] MEDS: sodium chloride 0.9% 250 ML 125 ML IV (15:16)
--- NOTE | 2021-10-15 20:24 | ONC FU_ITS ---
Shani White Progress Note Patient: Lynnette Sevilla Unit #: [id number]: 1940 Dicatated By: Shani White N.P.Date of Visit:Oct 15, 2021 Onc MED Follow-up/Prog Note Chief Complaint: Hemochromatosis/lung cancer. 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 His disease was stage IB (T2a, N0, M0) at initial diagnosis, but with subsequent progression to stage TIGIST (M1b). He also has hereditary hemochromatosis. In February [address] Tyler with persistent cough. His evaluation included chest CT on 03/04/2017. It showed a spiculated density in the medial aspect of the anterior segment of the right upper lobe. It measured 1.8 x 2.4 x 1.8 cm and it was new compared to a previous study from November 2013. There was no associated mediastinal or hilar adenopathy, and there was no evidence of liver or adrenal metastases. He underwent bronchoscopy on 04/06/2017. There were no endobronchial lesions identified. The lesion was found to be avid by PET/CT. There was no evidence of metastatic involvement. He underwent right upper lobectomy with mediastinal lymph node biopsy on 04/29/2017. Pathology showed low-grade (grade 1-2) adenocarcinoma measuring 3.2 x 2.4 cm. There was penetration into visceral pleura and there was evidence of lymphovascular space invasion. The margins of resection were free, and there was no involvement in 1 mediastinal lymph node, in 1 lymph node at the right mainstem bronchus, and in 2 hilar lymph nodes. He has continued on observation/expectant management following the surgery, as there appeared to be no indication for adjuvant chemotherapy. Dr. Chadwick had initially seen him in October 2012 in regard to elevated hemoglobin/hematocrit levels and elevated serum iron. His evaluation at that time showed his hemoglobin elevated at 18.1 g with hematocrit 52%. White count and platelet count were normal. The serum iron was in the upper normal range at 145 mcg/dL with transferrin saturation 30.8%. The serum ferritin, though, was elevated at 606 ng/mL. He had additional evaluation including an erythropoietin level which was in the normal range at 12 mIU/mL. A MICHAEL 2 gene mutation study was negative. The HFE gene analysis showed double heterozygosity for the C282Y and the H63D mutations, consistent with hereditary hemochromatosis. He has been managed on a phlebotomy program. Surveillance chest CT on 12/07/2018 showed stable postoperative changes from prior right upper lobectomy. There was long-term stability of left upper lower lobe nodules. There was chronic emphysema. There was no evidence for recurrent or metastatic neoplastic process. He continued observation/expectant management for the lung cancer. He had then presented to Dr. Tyler's office with swelling and redness in the left arm, in the area of the antecubital fossa. Venous Doppler of the left arm on 02/11/2019 showed extensive occlusive thrombus in the left basilic vein. All other veins of the left upper extremity appeared free of thrombus. He was started on anticoagulation with apixaban. He was seen here for follow-up on 02/25/2019. He then had a restaging PET/CT on 03/10/2019. It showed interval development of abnormal activity in a lytic lesion in the left femoral neck, suspicious for metastatic disease. There was interval resolution of the small right upper lobe lung mass. There were no other areas of abnormal uptake on that study. With those findings, he was referred to Dr. Chin. On 03/17/2019 he underwent prophylactic open reduction with interval fixation of the left hip. Pathology on the bone fragments did confirm metastatic carcinoma consistent with the previous diagnosis of pulmonary infiltrating adenocarcinoma. Following recovery from the surgery he was seen by Dr. Boggs for palliative radiation. He completed treatment on 04/18/2019 to a total dose of 3900 cGy. He tolerated the treatment well. In the meantime, Dr. Chadwick had also requested a next generation sequencing study. It was performed on the original lung tumor, as the specimen from the left femur was insufficient for analysis. That study showed low PD-L1 expression at 7%. The mutation burden, though, was high. The tumor was negative for EGFR, BRAF, and KRAS mutations, and it also tested negative for the ALK and ROS1 rearrangements. The NTRK fusion also was not detected. Dr. Chadwick had seen him for a follow-up visit on 05/02/2019. He had restaging CT scans on 06/01/2019 showed no evidence for recurrent disease in the chest, abdomen, or pelvis. In the setting of a treated, solitary metastasis, he was recommended to continue on observation/expectant management. On 06/28/2019 he was seen in the emergency room with complaints of dizziness. CT of the head with and without contrast showed no acute findings. He was diagnosed with vestibular neuronitis. On 07/04/2019 he was admitted to the hospital after returning to the emergency room with acute mental status changes. His repeat head CT showed a 10 mm focal area of low-attenuation in the left frontal lobe which appeared new from the recent study. Was felt to possibly represent a subacute infarct. Further evaluation with brain MRI showed multifocal patchy areas of acute ischemia involving the YUNG territories bilaterally. The largest area of ischemia measured approximately 1 cm. There was no evidence of mass-effect or midline shift. The clinical presentation appeared most consistent with cancer related hypercoagulability. As it occurred while on a therapeutic dose of apixaban, his anticoagulation was transitioned to therapeutic Lovenox. His echocardiogram showed normal left ventricular cavity size and systolic function with estimated ejection fraction at 60%. There were no significant valvular abnormalities noted. There appeared to be no significant change compared to her previous study from July 2018. His bilateral carotid Doppler studies showed just moderate atheromatous plaque bilaterally. Head MRA showed no evidence of high-grade proximal stenosis or aneurysm. He was discharged to [facility] for rehab. At that point, he was still having significant expressive aphasia, but his confusion had improved significantly. He subsequently was able to return home. Restaging CT scans of the chest, abdomen, and pelvis on 07/25/2019 showed stable 5 mm noncalcified pulmonary nodule in the left upper lobe and a 3 mm noncalcified nodule in the left lower lobe. There was no mediastinal or hilar adenopathy. A few scattered hypodensities throughout the liver are too small to characterize but similar to prior studies. A new 7 mm hypodensity was noted in the lower pole of the right kidney. There was increased density within the lumen of a contracted gallbladder, suspicious for stones and/or chronic cholecystitis. There was no osteoblastic or osteolytic bone disease identified. On 08/03/2019 he was seen in the emergency room with dizziness. He has repeat noncontrast head CT showed atrophy and chronic deep white matter ischemic change with no acute intracranial abnormality identified. He was diagnosed with vertigo and treated with meclizine. Dr. Chadwick had seen him for a follow-up visit on 08/08/2019. He had opted to stop the Lovenox injections, and he had restarted anticoagulation with apixaban. He also was taking Plavix. He was still having some difficulty with his speech and he was having some confusion at times and some difficulty with memory. Subsequent to that visit, his had called and reported that his memory and confusion were continuing to worsen. A repeat brain MRI on 08/23/2019 showed multifocal areas of abnormal diffusion abnormalities and flair signal abnormalities. It was noted to predominantly involve the left hippocampal formation with additional more focal diffusion signal abnormalities extending towards the temporal occipital junction posteriorly. That finding appeared to be most consistent with worsening subacute infarcts. Also noted, though, were additional cortical areas of very subtle enhancement throughout the brain which were suspicious for metastatic lesions. The most concerning were in the left frontal vertex. With those findings, Dr. Chadwick was able to get his anticoagulation transition back to Lovenox. A repeat PET/CT on 09/01/2019 showed interval development of a small well-circumscribed lytic lesion in the upper femoral neck on the right measuring up to 19 mm with SUV 7.3. A small amount of fracture was noted along the posterior upper border of the left greater trochanter. Abnormal increased activity was noted along the site of the previous suspected metastatic lesion in the left femoral neck with a maximum SUV 6.2, similar to the previous study. There were no other areas of significant abnormal activity identified. Given the PET/CT findings, he was then given palliative radiation to the right hip, completed on 09/28/2019 to a total dose of 3000 cGy. He tolerated the treatment well. In the meantime, a repeat brain MRI on 09/16/2019 again showed numerous bilateral multi lobar acute lacunar infarcts. The previously described areas of enhancement are felt to most likely be related to ischemia and not to metastatic disease. At that time there was felt to be no convincing evidence for metastatic disease. I had seen him for a follow-up visit on 03/2020. At that point he was beginning to show some recovery. Dr. Chadwick had discussed options for further treatment of the lung cancer. It was quite clear that he was not interested in attempting any chemotherapy. He did agree to continue anticoagulation with Lovenox, and ultimately he also agreed to a trial of immunotherapy. His other medical illnesses include hypertension, hyperlipidemia, type 2 diabetes, coronary artery disease, peripheral vascular disease, and degenerative arthritis. He underwent coronary artery bypass surgery in 1996 and he underwent an arterial bypass procedure to the right leg in 1999. In 2013 he was found to have significant hypoxemia. On evaluation he was found to have COPD and obstructive sleep apnea. 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 Also noted was calcific plaque at the origins of the common iliac arteries at 54% on the left and 60% on the right. He has a history of smoking 1-1 1/2 packs of cigarettes daily, but he quit smoking in 1996. INTERIM HISTORY: On 11/09/2019 he began a trial of immunotherapy with pembrolizumab as a single modality. He tolerated the initial infusion of pembrolizumab with no adverse effects, and he then continued treatment at 3-week intervals. As of 02/22/2020 he completed his 6th cycle. At his follow-up visit on 03/14/2020 he had developed a significant skin eruption on his trunk, mainly the back. With that finding, had stopped both the pembrolizumab and the denosumab, Dr. Chadwick also had him start prednisone, initially at 20 mg daily. The prednisone was later reduced to 10 mg daily, as the skin eruption was resolving. He was able to restart pembrolizumab on 03/28/2020. Dr. Chadwick opted to keep the denosumab on hold, as he felt it was the more likely cause for the eruption. He then continued his pembrolizumab infusions every 3 weeks. He completed his cycle 14 on 09/13/2020. Restaging CT scans of the chest, abdomen, and pelvis on 10/02/2020 showed no evidence of disease progression. There were mild chronic emphysematous changes noted. He continued his pembrolizumab infusions every 3 weeks. At his follow-up visit on 02/07/2021 he reported increased pain in the left hip area. Bone scan on 02/18/2021 showed moderate increased uptake involving the left femoral neck with left hip x-ray showing suspected new fracture despite the presence of intramedullary marco a. It was favored to be an insufficiency fracture. There was no other evidence of metastatic bone involvement. Restaging CT scans showed no evidence of recurrent or progressive disease in the chest, abdomen, or pelvis. In particular, there was no evidence for recurrent mass at the right hilum. A 5 mm left upper lobe nodule appeared stable. There was no evidence for metastatic involvement in the liver or adrenal glands. In the absence of any evidence of disease progression, he continued treatment with pembrolizumab. During follow-up he continued to complain of pain in the left hip area and to a lesser extent in the right hip. His restaging CT scans on 07/04/2021 showed postoperative changes of right upper lobectomy with no evidence of recurrent lung mass or adenopathy. A 5 mm ovoid left upper lobe nodule showed long-term stability. Multiple hepatic lesions were stable and consistent with cysts. There was no mesenteric or retroperitoneal adenopathy. There were no osteoblastic or osteolytic bone lesions identified. There were findings of extensive atherosclerosis within the thoracic and abdominal aorta with atherosclerotic changes extending into the superior mesenteric artery, renal arteries, and iliac arteries. There were multifocal areas of at least moderate stenosis. Patient presents today for follow-up. He states he has a moderate amount of fatigue but is able to perform activities around the house. His ECOG is 1. His appetite is good. He denies fever, chills, night sweats. No sinus drainage or mouth sores. No shortness of breath, cough, chest pain. No GI or problems. He has left hip and leg pain but it is controlled with medications. No headaches or dizziness. Review Of Symptoms: See above. Past Medical History: Coronary artery disease Deep vein thrombosis Degenerative arthritis Hyperlipidemia Hypertension Peripheral vascular disease Type II diabetes His medical illnesses include hypertension, hyperlipidemia, type 2 diabetes, coronary artery disease, peripheral vascular disease, and degenerative arthritis. Past Surgical History: Heart by-pass - quadruple bypass Covid vaccine #2???Moderna in 2020 Flu vac[facility] in 2019 Left femoral neck biopsy in 2019 Open reduction internal fixation Left hip-Dr Chin in 2019 Right upper lobectomy with mediastinal lymph node biopsy-Dr Rivers in 2017 He underwent coronary artery bypass surgery in 1996 and an arterial bypass procedure to the right leg in 1999. His only other surgery was an appendectomy in 1955. Allergies: PENICILLIN AND ALEVE Medications: Acetaminophen Extra Strength 1 (500 mg) Tablet Oral b.i.d. amLODIPine Besylate 0.5 Tablet (of 5 mg) Oral at bedtime B-12 1 Tablet (of 1000 mcg) Tablet Oral daily Bisacodyl 1 Tablet (of 5 mg) Tablet, enteric coated Oral daily PRN Carvedilol 1 (25 mg) Tablet Oral b.i.d. Cholecalciferol 1 Capsule (of 2000 Units) Oral daily Dulcolax Milk of Magnesia 30 mL (of 400 mg/5mL) Suspension Oral daily PRN Enoxaparin Sodium 80 mg (of 300 mg/3mL) Injection b.i.d. Famotidine 1 Tablet (of 20 mg) Oral b.i.d. PRN Fish Oil 1 (1200 mg) Capsule Oral daily Flonase Suspension Nasal Gabapentin 1 Tablet (of 300 mg) Oral daily Hydrocodone-Acetaminophen 1 (5-325 mg) Tablet Oral four times a day PRN Jardiance 0.5 Tablet (of 12.5 ) Oral daily Lovastatin 1 Tablet (of 40 mg) Oral b.i.d. Meclizine HCl 1 Tablet (of 25 mg) Oral daily PRN MetFORMIN HCl 1 Tablet (of 500 mg) Oral b.i.d. Plavix 1 (75 mg) Tablet Oral daily Spiriva Respimat Aerosol, solution Inhalation Tamsulosin HCl 1 (0.4 mg) Capsule Oral daily Family History: His father following stomach surgery at age 66. His mother had diabetes and with kidney thought here at age 74. A half-brother had alcoholic cirrhosis and as a result of an injury. A sister of leukemia at age 6. 3 other sisters and one brother are still living and in good health. Social History: Mr. Sevilla is and he is retired. Mr. Sevilla quit smoking 18 years ago but had smoked 1.5 packs/day for 23 years. He quit drinking 12 years ago. He has indicated exposure to the following products: cigarettes. Mr. Sevilla reports the following support systems: lives with spouse, significant other, family, or friends, lives in own house, supportive family/friends willing to assist with needs, and adequate transportation available for expected visits. His diet consists of regular meals. He indicates his activity level as: daily activities. He is retired. He had previously smoked up to a pack and a half of cigarettes daily. He quit in 1996. He has had social alcohol use in the past. He has had no alcohol use for at least 10 years or more. Physical Examination: Performed on Oct 15, 2021 15:05: Height - 65.00 in, Weight - 170.6 lbs (LOW), BSA - 1.85 sq.m, BMI - 28.39, Temperature - 97.0 F (LOW), Pulse - 73 /min, Respiration - 18 /min, BP - 135/74 mm(hg), O2 Sat - 91 % (LOW), Pain - 6, and Fatigue - 7. Performance Status: 1 - No physically strenuous activity, but ambulatory and able to carry out light or sedentary work (e.g. office work, light house work). (ECOG) Constitutional Alert, cooperative, oriented. Mood and affect appropriate. Appears close to chronological age. Well nourished. Well developed. Head Normocephalic; no scars. Respiratory Lungs are clear to auscultation without rhonchi or wheezing. Cardiovascular Regular rate and rhythm of heart without murmurs, gallops or rubs. Abdomen Non-tender, non-distended, no masses, ascites or hepatosplenomegaly. Good bowel sounds. No guarding or rebound tenderness. Musculoskeletal Left hip and left leg pain Psychiatric Alert and oriented times three. Coherent speech. Verbalizes understanding of our discussions today. Laboratory: Test performed on Oct 15, 2021 13:52 Sodium 135 mmol/L Potassium 4.4 mmol/L Chloride 96 mmol/L CO2 28 mmol/L Anion Gap 15.4 BUN 22 mg/dL Creatinine 1.0 mg/dL Cr Clearance (Est) 65.5600 mL/min Glucose 302 mg/dL Osmolality - Calculated 295 mOsm/kg Calcium 9.3 mg/dL Protein, Total 6.8 g/dL Albumin 4.5 g/dL Globulin 2.3 g/dL Bilirubin, Total 0.9 mg/dL ALT (SGPT) 14 U/L AST (SGOT) 14 U/L Alkaline Phosphatase 49 IU/L Test performed on Oct 15, 2021 12:50 WBC 5.6 10 3/uL RBC 5.87 10 6/uL HGB 17.9 g/dL HCT 51.5 % MCV 87.7 fl MCH 30.5 pg MCHC 34.8 g/dL RDW 12.6 % Platelet Count 198 10 3/cmm MPV 9.8 fL Neutrophils 3.50 10 3/uL Lymphocytes 1.2 10 3/uL Monocytes 0.5 10 3/uL Eosinophils 0.3 10 3/uL Basophils 0.1 10 3/uL Neutrophil % 62.6 % Lymphocyte % 21.0 % Monocyte % 9.0 % Eosinophil % 6.1 % Basophils % 0.9 % NRBC % 0 % Test performed on Sep 24, 2021 09:30 Ferritin 97 ng/mL Iron 84 mcg/dL TSH 5.82 uIU/mL Iron Binding Capacity (TIBC) 296 mcg/dl % Iron Saturation 28.3 % UIBC 212 mcg/dL Test performed on Jun 11, 2021 09:02 Est Avg Glucose (eAG) 240 mg/dL Hemoglobin A1C % 10.0 % Test performed on May 01, 2021 09:35 T4, Free 1.30 ng/dL Impression: 1. Nonsmall cell cancer (low-grade adenocarcinoma) involving the upper lobe of the right lung, stage IB (T2a, N0, M0). He underwent right upper lobectomy with mediastinal lymph node biopsy on 04/29/2017. He had subsequent progression to stage IVB (M1c) with multiple sites of metastatic bone involvement. 2. A next generation sequencing study on his primary lung tumor showed low PD-L1 expression at 7%. The mutation burden was high. There were no actionable mutations identified. 3. 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 4. He has hereditary hemochromatosis. He was found to be doubly heterozygous for the C282Y and the H63D mutations. He has had a very good response to phlebotomy, with his subsequent ferritin levels maintained at less than 50 ng/mL compared to a pretreatment level of greater than 600. 5. He has underlying lung disease including COPD and obstructive sleep apnea, and he has associated chronic hypoxia. 6. Hypertension. 7. Hyperlipidemia. 8. Type II diabetes. 9. Coronary artery disease. 10. Peripheral arterial disease. 11. Degenerative arthritis. Plan: 1. Patient with nonsmall cell cancer (low-grade adenocarcinoma) involving the upper lobe of the right lung, stage IB (T2a, N0, M0). He underwent right upper lobectomy with mediastinal lymph node biopsy on 04/29/2017. He had subsequent progression to stage IVB (M1c) with multiple sites of metastatic bone involvement. A next generation sequencing study on his primary lung tumor showed low PD-L1 expression at 7%. The mutation burden was high. There were no actionable mutations identified. His restaging PET/CT on 03/10/2019 showed evidence of a single site of metastatic disease in the form of a lytic bone lesion in the left femoral neck. He underwent prophylactic ORIF of the left hip on 03/17/2019. Pathology confirmed metastatic adenocarcinoma. Following recovery from the surgery, he was seen by Dr. Boggs for palliative radiation. He completed treatment on 04/18/2019 to a total dose of 3900 cGy. A repeat PET/CT on 09/01/2019 showed a new small metastatic lesion in the right proximal femur. There was residual activity at the site of the metastatic lesion in the left femur. There were no other areas of abnormal activity noted on that study. He was then given palliative radiation to the right hip, completed on 09/28/2019 to a total dose of 3000 cGy. On 11/09/2019 he began a trial of immunotherapy with pembrolizumab. He tolerated the initial infusion of pembrolizumab with no adverse effects, and he then continued treatment at 3-week intervals. During that time he also began denosumab injections for the metastatic bone involvement. As of his follow-up visit on 03/14/2020 both the pembrolizumab and the denosumab were put on hold to development of skin eruption. The eruption gradually resolved on steroid therapy, and he was able to resume pembrolizumab on 03/28/2020. He was able to taper off prednisone, but with some persistent itching on his back, which he was able manage topically with CeraVe. He had otherwise tolerated treatment well. His restaging CT scans on 06/18/2020 showed no evidence of metastatic disease. He continued treatment with pembrolizumab at 3-week intervals. His restaging CT scans on 10/02/2020 showed no evidence of disease progression, and he continued his same treatment. As of his follow-up visit on 02/07/2021 he was reporting some increasing pain in the posterior hip area on both sides. On restaging evaluation, he was found evidence of a fracture in the left femoral neck extending into the proximal femur. There was no indication for treatment, and there was no evidence for progression of the lung cancer. In the absence of any evidence of disease progression he continued treatment with pembrolizumab at 200 mg by IV infusion every 3 weeks. In June 2021 has still been no evidence of progression of bony metastatic disease and there has been no other evidence for disease progression by CT scan. Patient presents today for follow-up. He continues to have ongoing issues with left hip pain and problems with his gait due to his equilibrium. He is currently receiving physical therapy. He will continue his treatment with pembrolizumab at 200 mg IV infusion every 3 weeks. He will return to the clinic in 3 weeks with CBC and CMP. 2. 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 He continues anticoagulation with Lovenox. 3. He has hereditary hemochromatosis. He has been managed with phlebotomy. His hemoglobin is 17.9 and his hematocrit is 51.6 which is slightly increased from 3 weeks ago. We will recheck in 3 weeks and perform phlebotomy if needed. 4. He has slightly elevated TSH, which is likely treatment related. It is being monitored. It was 5.82 today Signed By: Shani White NDavie. <<Signature on File>>
== END 2021-10-15 12:15 | disposition home or self-care (01) ==
PROVIDERS: PCP Nurse Practitioner Family; Visit Provider Nurse Practitioner Family
DX: Z51.11 Encounter for antineoplastic chemotherapy (principal); C34.11 Malignant neoplasm of upper lobe, right bronchus or lung; Z87.891 Personal history of nicotine dependence; C79.51 Secondary malignant neoplasm of bone; Z92.3 Personal history of irradiation; Z86.718 Personal history of other venous thrombosis and embolism; Z86.73 Personal history of transient ischemic attack (TIA), and cerebral infarction without residual deficits; Z79.01 Long term (current) use of anticoagulants; E83.110 Hereditary hemochromatosis; R94.6 Abnormal results of thyroid function studies
CPT/HCPCS: 80053; 85025; 96413; 99215; J7050; J9271

== ENCOUNTER 2021-10-20 06:00 | Outpatient (RCR) | payer MEDICARE, SELFPAY | END 2021-11-19 23:59 | disposition home or self-care (01) | LOC: SPT 06:00 | PROVIDERS: PCP Nurse Practitioner Family; Referring Provider Nurse Practitioner Family; Visit Provider Nurse Practitioner Family | DX: M25.552 Pain in left hip (principal) | CPT/HCPCS: 97110; 97150 ==

== ENCOUNTER 2021-11-05 10:40 | Oncology outpatient (recurring) (ONCR) | payer MEDICARE, SELFPAY ==
[2021-11-05 11:09] LABS: Basophils # 0.1 10^3/uL (0.0-0.1); Eosinophils # 0.4 10^3/uL (0.0-0.8); Eosinophils % 5.8 %; Hematocrit 49.7 % (42.0-52.0); Hemoglobin 17.1 g/dL (11.7-16.6); Lymphocytes % 16.7 %; Mean Corpuscular HGB Conc 34.4 g/dL (30.0-36.0); Mean Corpuscular Volume 90.2 fl (80-94); Mean Platelet Volume 9.5 fL (7.4-10.4); Monocytes # 0.6 10^3/uL (0.2-0.9); Monocytes % 9.9 %; Neutrophils # 4.09 10^3/uL (1.8-7.7); Neutrophils % 66.3 %; Nucleated Red Blood Cells % 0 %; Platelet Count 196 10^3/cmm (130-400); Red Blood Count 5.51 10^6/uL (4.1-5.3); White Blood Count 6.2 10^3/uL (4.0-10.0)
[2021-11-05 11:34] LABS: Alanine Aminotransferase 16 U/L (0-41); Albumin Level 4.4 g/dL (3.5-5.2); Alkaline Phosphatase 42 IU/L (40-130); Blood Urea Nitrogen 18 mg/dL (8-23); Calcium 9.8 mg/dL (8.5-10.5); Carbon Dioxide 23 mmol/L (22-29); Chloride 101 mmol/L (98-107); Globulin 2.8 g/dL (1.3-4.6); Glucose 234 mg/dL (65-115); Osmolality Calculated 291 mOsm/kg (285-295); Sodium 136 mmol/L (136-145); Total Bilirubin 0.8 mg/dL (0.15-1.2); Total Protein 7.2 g/dL (6.6-8.7)
[2021-11-05 11:47] LABS: Anion Gap 16.4 (5-19); Aspartate Amino Transferase 16 U/L (0-40); Potassium 4.4 mmol/L (3.5-5.1)
[2021-11-05] MEDS: sodium chloride 0.9% 250 ML 75 ML IV (13:52)
[2021-11-05] MEDS: pembrolizumab 200 MG in sodium chloride 0.9% 250 ML 516 MG IV (13:52)
== END 2021-11-19 23:59 | disposition home or self-care (01) ==
PROVIDERS: Nurse Practitioner Family; PCP Nurse Practitioner Family; Visit Provider Internal Medicine Medical Oncology
DX: Z51.12 Encounter for antineoplastic immunotherapy (principal); C34.11 Malignant neoplasm of upper lobe, right bronchus or lung; C79.51 Secondary malignant neoplasm of bone; L27.1 Localized skin eruption due to drugs and medicaments taken internally; T45.1X5A Adverse effect of antineoplastic and immunosuppressive drugs, initial encounter; I63.89 Other cerebral infarction; Z79.01 Long term (current) use of anticoagulants; E83.110 Hereditary hemochromatosis; Z79.899 Other long term (current) drug therapy
CPT/HCPCS: 80053; 85025; 96413; 99215; 99999; J7050; J9271

== ENCOUNTER → 2021-11-19 09:59 | Outpatient (BNVA) | payer MEDICARE, SELFPAY | PROVIDERS: PCP Nurse Practitioner Family; Visit Provider Otolaryngology | DX: H61.23 Impacted cerumen, bilateral (principal); Z87.891 Personal history of nicotine dependence | CPT/HCPCS: 69210; 99213 ==

== ENCOUNTER 2021-11-20 06:00 | Outpatient (RCR) | payer MEDICARE, SELFPAY | END 2021-12-09 23:59 | disposition home or self-care (01) | LOC: SPT 06:00 | PROVIDERS: PCP Nurse Practitioner Family; Referring Provider Nurse Practitioner Family; Visit Provider Nurse Practitioner Family | DX: M25.552 Pain in left hip (principal) | CPT/HCPCS: 97110 ==

== ENCOUNTER 2021-12-03 11:00 | Oncology outpatient (recurring) (ONCR) | payer MEDICARE, SELFPAY ==
--- NOTE | 2021-11-28 11:40 | CTR_ITS ---
PROCEDURE INFORMATION: Exam: CT Chest With Contrast; Diagnostic Exam date and time: 11/28/2021 1:05 PM Age: 81 years old Clinical indication: Condition or disease; Lung condition and disease; Cancer of the lung; Right; Unspecified; Primary cancer: --bone and lung cancer restaging; Prior surgery; Surgery type: Cabg, lt hip, rll TECHNIQUE: Imaging protocol: Diagnostic computed tomography of the chest with contrast. Radiation optimization: All CT scans at this facility use at least one of these dose optimization techniques: automated exposure control; mA and/or kV adjustment per patient size (includes targeted exams where dose is matched to clinical indication); or iterative reconstruction. Contrast material: OMNI 3300; Contrast volume: 95 ml; Contrast route: INTRAVENOUS (IV); COMPARISON: CT chest abd pel w con* 07/04/2021 2:44 PM RADIATION DOSE METRICS: Total DLP (mGy-cm): 2680.59 FINDINGS: Lungs: Emphysematous changes. Right lower lobe atelectasis. Suspected right upper lobectomy again seen. Left upper lobe 5 mm pulmonary nodule again seen, similar to prior exam, previously indicated to have long-term stability. Pleural spaces: Unremarkable. No pneumothorax. No pleural effusion. Heart: See Bones/joints finding. Lymph nodes: Unremarkable. No enlarged lymph nodes. Vasculature: Unremarkable. No aortic aneurysm. Bones/joints: Sternotomy wires and coronary artery atherosclerotic calcifications. Soft tissues: Unremarkable. PROCEDURE INFORMATION: Exam: CT Abdomen And Pelvis With Contrast Exam date and time: 11/28/2021 1:05 PM Age: 81 years old Clinical indication: Condition or disease; Lung condition and disease; Cancer of the lung; Right; Unspecified; Primary cancer: --bone and lung cancer restaging; Prior surgery; Surgery type: Cabg, lt hip, rll TECHNIQUE: Imaging protocol: Computed tomography of the abdomen and pelvis with contrast. Radiation optimization: All CT scans at this facility use at least one of these dose optimization techniques: automated exposure control; mA and/or kV adjustment per patient size (includes targeted exams where dose is matched to clinical indication); or iterative reconstruction. Contrast material: OMNI 3300; Contrast volume: 95 ml; Contrast route: INTRAVENOUS (IV); COMPARISON: CT chest abd pel w con* 07/04/2021 2:44 PM RADIATION DOSE METRICS: Total DLP (mGy-cm): 2680.59 FINDINGS: Liver: Several hepatic cysts again seen similar to prior exam. Gallbladder and bile ducts: Cholelithiasis. Pancreas: Normal. No ductal dilation. Spleen: Normal. No splenomegaly. Adrenal glands: Normal. No mass. Kidneys and ureters: Normal. No hydronephrosis. Stomach and bowel: Diverticulosis without diverticulitis. Appendix: No evidence of appendicitis. Intraperitoneal space: Unremarkable. No free air. No significant fluid collection. Vasculature: Unremarkable. No abdominal aortic aneurysm. Lymph nodes: Unremarkable. No enlarged lymph nodes. Urinary bladder: Unremarkable as visualized. Reproductive: Unremarkable as visualized. Bones/joints: Unremarkable. No acute fracture. Soft tissues: Unremarkable. CT/CT chest abd pel w con* IMPRESSION: 1. Negative for adenopathy or concerning lesion. 2. Emphysematous changes. 3. Right lower lobe atelectasis. 4. Suspected right upper lobectomy again seen. 5. Left upper lobe 5 mm pulmonary nodule again seen, similar to prior exam, previously indicated to have long-term stability. IMPRESSION: 1. Negative for adenopathy or concerning lesion. 2. Several hepatic cysts again seen similar to prior exam. 3. Cholelithiasis. 4. Diverticulosis without diverticulitis.
--- NOTE | 2021-11-28 11:48 | CTR_ITS ---
PROCEDURE INFORMATION: Exam: CT Left Lower Extremity Without Contrast, Hip Exam date and time: 11/28/2021 1:05 PM Age: 81 years old Clinical indication: Prior surgery; Surgery type: Lt hip; Patient HX: Bone and lung cancer , left knee and hip pain TECHNIQUE: Imaging protocol: CT of the Left lower extremity without contrast was performed. Exam focused on the hip. Radiation optimization: All CT scans at this facility use at least one of these dose optimization techniques: automated exposure control; mA and/or kV adjustment per patient size (includes targeted exams where dose is matched to clinical indication); or iterative reconstruction. COMPARISON: CR XR hip LT 2-3V wo/w pel* [id number] 02/18/2021 10:55 AM RADIATION DOSE METRICS: Total DLP (mGy-cm): 2680.59 FINDINGS: Bones/joints: Left femoral surgical hardware seen in place. Lucency is seen about the component in the femoral neck region measuring 2.8 cm, metastatic disease is potentially consideration for this appearance, however finding is similar compared to CT abdomen and pelvis from 02/18/2021 suggesting it may be chronic and benign in nature. Soft tissues: Normal. CT/CT hip LT wo con* [id number] IMPRESSION: Left femoral surgical hardware seen in place. Lucency is seen about the component in the femoral neck region measuring 2.8 cm, metastatic disease is potentially consideration for this appearance, however finding is similar compared to CT abdomen and pelvis from 02/18/2021 suggesting it may be chronic and benign in nature.
[2021-12-02] MEDS: sodium chloride 0.9% 250 ML 75 ML IV (12:35)
[2021-12-02] MEDS: pembrolizumab 200 MG in sodium chloride 0.9% 250 ML 516 MG IV (12:42)
[2021-12-02 13:45] VITALS: BP 129/58; PULSE 62; RESP 20; TEMP 36.3; O2SAT 93
--- NOTE | 2021-12-03 10:29 | MR_ITS ---
WS: [id number] MRI HEAD WITH CONTRAST TECHNIQUE: Sagittal T1, T2 axial, T2 axial FLAIR, axial susceptibility weighted imaging, axial diffus ion weighted images, and coronal T2 images were obtained. Pre and post-T1 axial and post T1 coronal i mages. ADC and FSPGR images. CLINICAL INFORMATION: RESTAGING/LUNG CANCER COMPARISON: MRI March 06, [address] November 20, 2020 FINDINGS: No evidence of restricted diffusion to suggest acute ischemia. Ventricular system and basal cisterns are patent. Moderate small vessel changes. Moderate parenchymal volume loss. Tiny chronic lacunar inf arcts in the LEFT cerebellum. Slow flow/stenosis in the LEFT distal vertebral artery. This is unchang ed since March 06, 2020. Otherwise normal vascular flow voids at the skull base. No extra-axial f luid collections. Mild small vessel changes in the asif. Paranasal sinuses are well aerated. Mastoid air cells are well aerated. Mucosal thickening RIGHT mastoid tip. Normal posterior nasopharynx. Chronic lacunar infarcts in the LEFT periventricular white matter. No h emosiderin on the susceptibility weighted images. Normal optic chiasm and pituitary infundibulum. Mod erate symmetric atrophy temporal lobes and hippocampal formations. Normal cavernous sinuses and Mecke l's cave. No abnormal gadolinium enhancement. No evidence of enhancing intracranial metastatic disease. Normal visualized dural venous sinuses. MR/MR head wo/w con [id number] IMPRESSION: 1. No evidence of restricted diffusion to suggest acute ischemia. 2. Moderate small vessel changes with moderate parenchymal volume loss. Small vessel changes in the asif. 3. No evidence of enhancing intracranial metastatic disease. 4. Chronic lacunar infarcts in the LEFT fajardo radiata unchanged from previous . 5. Slow flow/stenosis in the LEFT distal vertebral artery unchanged from [facility] 2019. 6. Overall no significant changes compared to the prior MRI March 06, 2020
== END 2021-12-19 23:59 | disposition home or self-care (01) ==
LOC: ONCMED 12-19 10:20
PROVIDERS: PCP Nurse Practitioner Family; Visit Provider Internal Medicine Medical Oncology
DX: C34.11 Malignant neoplasm of upper lobe, right bronchus or lung (principal); I63.89 Other cerebral infarction; Z53.9 Procedure and treatment not carried out, unspecified reason
CPT/HCPCS: 70553; 71260; 73700; 74177; 96413; 99214; J7050; J9271; Q9967

== ENCOUNTER → 2022-01-06 10:27 | Outpatient (BNVA) | payer MEDICARE, SELFPAY | PROVIDERS: PCP Family Medicine; Visit Provider Specialist | DX: M70.62 Trochanteric bursitis, left hip (principal); M25.552 Pain in left hip | CPT/HCPCS: 20610; 73502; 99214; J1100; J2795; J3301 ==

== ENCOUNTER 2022-01-16 06:00 | Outpatient (RCR) | payer MEDICARE, SELFPAY | END 2022-01-19 23:59 | disposition home or self-care (01) | LOC: SPT 06:00 | PROVIDERS: PCP Family Medicine; Referring Provider Specialist; Visit Provider Specialist | DX: M70.62 Trochanteric bursitis, left hip (principal) | CPT/HCPCS: 97110; 97162 ==

== ENCOUNTER → 2022-01-17 10:12 | Outpatient (BNVA) | payer MEDICARE, SELFPAY | PROVIDERS: PCP Family Medicine; Visit Provider Otolaryngology | DX: H60.61 Unspecified chronic otitis externa, right ear (principal); Z87.891 Personal history of nicotine dependence; H61.23 Impacted cerumen, bilateral | CPT/HCPCS: 69210; 99213 ==

== ENCOUNTER 2022-01-20 06:00 | Outpatient (RCR) | payer MEDICARE, SELFPAY | END 2022-02-19 23:59 | disposition home or self-care (01) | LOC: SPT 06:00 | PROVIDERS: PCP Family Medicine; Visit Provider Specialist | DX: M70.62 Trochanteric bursitis, left hip (principal); M53.3 Sacrococcygeal disorders, not elsewhere classified | CPT/HCPCS: 97110 ==

== ENCOUNTER 2022-01-29 09:04 | Outpatient (CLI) | payer MEDICARE, SELFPAY ==
--- NOTE | 2022-01-29 09:30 | USR_ITS ---
PROCEDURE INFORMATION: Exam: US Duplex Lower Extremity Arteries Exam date and time: 01/29/2022 9:49 AM Age: 81 years old Clinical indication: Pain; Leg, upper and leg, lower; Left; Prior surgery; Surgery date: 6+ months; Surgery type: Gsv removed bilaterally; Patient HX: PT states art repair on RT. But i do not see graft or stent; Additional info: Decreased pulses PT states he has graft in RT leg, cv segpressure le bi order: ([id number]) TECHNIQUE: Imaging protocol: Real-time ultrasound scan of the arteries of the bilateral lower extremities with 2-D parra scale, color Doppler flow and spectral waveform analysis. Images documented and saved. COMPARISON: CT chest abd pel w con* 11/28/2021 1:05 PM FINDINGS: Right external iliac artery: No significant stenosis or occlusion. Right common femoral artery: No occlusion or significant stenosis. Biphasic waveform. Right superficial femoral artery: No occlusion or significant stenosis. Biphasic waveform. Right popliteal artery: No occlusion or significant stenosis. Biphasic waveform. Right calf/foot arteries: Right ankle brachial index: 0.8 Left external iliac artery: There is decreased flow in velocity in the distal left external iliac artery consistent with proximal iliac artery stenosis. Left common femoral artery: There is significantly decreased flow and velocity consistent with iliac artery stenosis. Left superficial femoral artery: No there is significantly decreased flow and velocity consistent with the evidence of iliac artery stenosis. Left popliteal artery: There is significantly decreased flow and velocity consistent with the evidence of iliac artery stenosis.. Left calf/foot arteries: Left ankle brachial index: 0.36 US/[place] [id number] IMPRESSION: 1. No evidence of occlusion or significant stenosis in the right lower extremity. 2. There is significantly decreased flow and velocities beginning in the distal left iliac artery consistent with significant proximal stenosis.
== END 2022-01-29 09:05 | disposition home or self-care (01) ==
LOC: RAD 09:12
PROVIDERS: PCP Family Medicine; Visit Provider Podiatrist Foot & Ankle Surgery
DX: I73.9 Peripheral vascular disease, unspecified (principal)
CPT/HCPCS: 93925

== ENCOUNTER 2022-01-29 12:50 | Inpatient (IN) | payer MEDICARE, SELFPAY ==
[2022-01-29] VITALS (9 sets, daily range): BP systolic 124–164; BP diastolic 72–96; PULSE 60–80; RESP 14–27; TEMP 36.6; O2SAT 90–96; BMI 27.4
--- NOTE | 2022-01-29 15:51 | W.ED.EXTPRO ---
HPI - Extremity Problem General: Chief complaint: Extremity Problem,Nontraumatic Stated complaint: Left leg pain Time Seen by Provider: 01/29/22 15:02 History of Present Illness: Patient is a 81-year-old male who comes to the ED with left leg pain. Patient was scheduled for an outpatient ultrasound here at the hospital this morning and they found a DVT in his left leg. He was told to come here to the ED for further evaluation. Patient has a history of stroke, lung cancer with metastasis to the bone. Patient is on 3 L of oxygen as needed at home. He was on Eliquis when he had his stroke and then was switched to Lovenox. Currently he takes Lovenox twice daily. He takes his Lovenox at 9 AM and 9 PM daily. He started developing some left leg pain a couple days ago, so he was sent to do an outpatient ultrasound of his left leg today January 29 and they found a DVT in his left femoral vein. He denies any chest pain, shortness of breath, increased O2, hemoptysis. Associated symptoms: Deny chest pain, fever(s) or rash Review of Systems Const: Denies: fever(s), chills or fatigue Eyes: Denies: change in vision or eye discomfort ENMT: Denies: throat pain, odynophagia, nasal discharge or nasal congestion Card: Denies: chest pain, palpitations, edema, swelling of feet/ankles, dyspnea on exertion or orthopnea Resp: Denies: dyspnea, productive cough or non-productive cough GI: Denies: abdominal pain, nausea, vomiting, diarrhea, constipation or hematochezia : Denies: flank pain, difficulty urinating, dysuria or hematuria Musc: Reports: extremity pain (Left upper leg pain); Denies: neck pain, back pain or extremity swelling Skin/Breast: Denies: rash or new lesions Neuro: Denies: headache(s), numbness in extremities or weakness in extremities PFSH ED PFSH: Medical History Acute embolism and thrombosis of deep veins of left upper extremity Acute ischemic multifocal multiple vascular territories stroke Allergic rhinitis BPH (benign prostatic hyperplasia) Carotid artery disease Celiac artery stenosis Chronic anticoagulation COPD (chronic obstructive pulmonary disease) Coronary artery disease DJD (degenerative joint disease) DVT (deep venous thrombosis) GERD (gastroesophageal reflux disease) Gout Hereditary hemochromatosis Hyperlipidemia Hypertension Lung cancer 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 Obstructive sleep apnea Other abnormal blood chemistry Peripheral arterial disease with history of revascularization Peripheral neuropathy 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 Type 2 diabetes mellitus Unspecified diseases of blood and blood-forming organs Surgical History H/O arterial bypass of lower limb (1999) right leg History of left hip hemiarthroplasty (03/17/19) History of lobectomy of lung (04/29/17) right upper lobe lobectomy with mediastinal lymph node biopsy History of PTCA History of quadruple bypass (1996) History of tonsillectomy and adenoidectomy Hx of appendectomy Hx of cataract extraction Family History Mother Diabetes Chronic kidney disease (CKD) Brother CAD (coronary artery disease) Cancer Diabetes Son CAD (coronary artery disease) Denies family history of Clotting disorder Dementia Suicide Anesthesia complication Bleeding disorder Lung disease Stroke Social History Smoking and tobacco status: former smoker (quit 24yrs ago) Alcohol intake: never Lives independently: Yes Household members: spouse History of recent travel: No Special jazlyn needs: No Physical Exam Const: COMMON NORMALS: patient oriented x3 and alert GENERAL APPEARANCE: cooperative HENMT: COMMON NORMALS: normocephalic HEAD & SCALP: normocephalic MOUTH: Normal oral and palatal mucosa present THROAT: posterior oropharynx normal and uvula midline Neck/C-Spine: COMMON NORMALS: supple GENERAL: Yes normal visual inspection Resp: COMMON NORMALS: normal respiratory effort, No retractions, No use of accessory muscles and clear to auscultation bilaterally AUSCULTATION: clear to auscultation bilaterally Cardio: COMMON NORMALS: regular rate, regular rhythm, S1 normal heart sound present, S2 normal heart sound present, No gallops present (Cardio), No clicks present (Cardio), No murmurs present (Cardio) and Peripheral pulses 2+ throughout RATE: regular rate RHYTHM: regular rhythm HEART SOUNDS: S1 normal heart sound present and S2 normal heart sound present PERIPHERAL PULSES: Peripheral pulses 2+ throughout GI: COMMON NORMALS: Normal to inspection, nondistended, normoactive bowel sounds present, Soft to palpation, non-tender and no masses PALPATION: Yes Soft to palpation : COMMON NORMALS: Yes no CVA tenderness BLADDER/KIDNEY EXAM: Yes no CVA tenderness Back/Pelvis: COMMON NORMALS: no CVA tenderness Extremity: COMMON NORMALS: normal to inspection and no pedal edema Neuro: COMMON NORMALS: patient oriented x3 SENSORIUM/ORIENTATION: Yes alert GAIT: Yes Normal gait present Skin: GENERAL SKIN EXAM: dry skin Course Consultations: Consultation #1: I contacted Dr. Chadwick and told him about patient case. He is familiar and works with patient and has been managing his Lovenox. He thinks since patient has failed Eliquis and was put on Lovenox and now he has a DVT he needs to be admitted and put on a heparin drip. Time: 16:10 Consultation #2: I contacted hospitalist and told about patient case and he agreed to have patient admitted. Time: 16:28 Vital Signs: Vital signs: Vital Signs Temperature 97.8 F 01/29/22 13:56 Pulse Rate 61 01/29/22 21:55 Respiratory Rate 16 01/29/22 21:55 Blood Pressure 124/76 01/29/22 19:08 Pulse Oximetry 95 01/29/22 21:55 Oxygen Delivery Me thod 01/29/22 21:55 MDM - Extremity (Nontraumatic) Medical Decision Making Patient is a 81-year-old male who comes to the ED with left leg pain. Patient was scheduled for an outpatient ultrasound here at the hospital this morning and they found a DVT in his left leg. He was told to come here to the ED for further evaluation. Patient has a history of stroke, lung cancer with metastasis to the bone. He was on Eliquis when he had his stroke and then was switched to Lovenox. Currently he takes Lovenox twice daily. Denies any chest pain, shortness of breath, hemoptysis or fevers. I contacted Dr. Chadwick and told him about patient case. Given patient's history and he has been on multiple blood thinners he stated patient needs to be admitted and started on IV heparin. I then contacted the hospitalist and told about patient case and agreed to have patient admitted to the hospital. Lab Data I reviewed the patient's lab results. 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
--- NOTE | 2022-01-29 16:14 | PC.NURSE ---
Patient with c/o right foot/ankle pain. Foot noted to be warm, red and swelling, patient states 'boils'. IV placed, labs drawn, placed on monitor.
--- NOTE | 2022-01-29 17:37 | PM.HP ---
Providers/Chief Complaint Primary Care Provider: Silver Alvarez DO Chief Complaint: Left leg pain History of Present Illness Lynnette Sevilla is a 81 year old male with history of non-small cell lung cancer presented today with chief complaint of left-sided leg pain. He carries history of bypass of right leg for peripheral arterial disease, in the ER he was diagnosed with DVT and severe arterial disease. I do not see any medications given in the ER. We will start him on heparin drip. I have discussed with Dr. Tolbert. Patient at home was on Plavix and Lovenox as he carries history of recurrent DVTs with underlying malignancy. Review of Systems Const: Denies: fever(s) Eyes: Denies: change in vision ENMT: Denies: throat pain Card: Denies: chest pain Resp: Denies: dyspnea GI: Denies: abdominal pain : Denies: flank pain Musc: Reports: extremity pain; Denies: neck pain Skin/Breast: Denies: rash Neuro: Denies: headache(s) Psych: Denies: anxiety Endo: Denies: polyuria Eren/Lymph: Denies: easy bruising All/Imm: Denies: urticaria Medications/Allergies Home Medications Medication Instructions Recorded Confirmed Last Taken Type allopurinol 300 mg tablet 300 mg PO DAILY@0800 06/28/19 01/29/22 01/29/22 History carvedilol 25 mg tablet 25 mg PO BID@0800,1800 06/28/19 01/29/22 01/29/22 History cholecalciferol (vitamin D3) 50 2,000 unit PO DAILY@0800 06/28/19 01/29/22 01/29/22 History mcg (2,000 unit) tablet (Vitamin D3) clopidogrel 75 mg tablet (Plavix) 75 mg PO DAILY@0800 06/28/19 01/29/22 01/29/22 History empagliflozin 25 mg tablet 12.5 mg PO DAILY@79906/28/19 01/29/22 01/29/22 History (Jardiance) gabapentin 300 mg capsule 300 mg PO BEDTIME@179906/28/19 01/29/22 01/28/22 History metformin 500 mg tablet,extended 1,000 mg PO BID@0800,1800 06/28/19 01/29/22 01/29/22 History release 24 hr omega 7-gls-ylo-fish oil 1,000 mg 2 cap PO BID 06/28/19 01/29/22 01/29/22 History (120 mg-180 mg) capsule (Fish Oil) tamsulosin 0.4 mg capsule (Flomax) 0.4 mg PO DAILY 06/28/19 01/29/22 01/29/22 History vitamin B12 0.5 mg-folic acid 1 mg 1 tab PO DAILY@0800 06/28/19 01/29/22 01/29/22 History tablet fluticasone propionate 50 2 spray intranasal DAILY PRN Nasal 08/03/19 01/29/22 09/17/19 History mcg/actuation nasal Congestion spray,suspension (Flonase Allergy Relief) lovastatin 40 mg tablet 40 mg PO BID@0800,1800 08/03/19 01/29/22 01/29/22 History tiotropium bromide 1.25 2 puff inhalation DAILY PRN 08/03/19 01/29/22 09/17/19 History mcg/actuation mist for inhalation Shortness Of Breath (Spiriva Respimat) cetirizine 10 mg tablet 5 mg PO DAILY PRN Allergy Symptoms 09/08/20 01/29/22 09/07/20 History enoxaparin 80 mg/0.8 mL 80 mg SUBCUT Q12H 11/29/20 01/29/22 01/29/22 History subcutaneous syringe (Lovenox) ofloxacin 0.3 % eye drops 2 drp otic (ear) BID 12 months #10 06/03/21 01/29/22 Unknown Rx mL ezetimibe 10 mg tablet (Zetia) 10 mg PO DAILY #90 tabs 10/02/21 01/29/22 01/29/22 Rx Allergies Allergy/AdvReac Type Severity Reaction Status Date / Time prednisone Allergy Unknown rash Verified 01/17/22 10:29 naproxen [From Aleve] Allergy ALGY-Hives Verified 01/17/22 10:29 Penicillins Allergy ALGY-Hives Verified 01/17/22 10:29 PFSH Acute PFSH: Medical History Acute embolism and thrombosis of deep veins of left upper extremity Acute ischemic multifocal multiple vascular territories stroke Allergic rhinitis BPH (benign prostatic hyperplasia) Carotid artery disease Celiac artery stenosis Chronic anticoagulation COPD (chronic obstructive pulmonary disease) Coronary artery disease DJD (degenerative joint disease) DVT (deep venous thrombosis) GERD (gastroesophageal reflux disease) Gout Hereditary hemochromatosis Hyperlipidemia Hypertension Lung cancer 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 Obstructive sleep apnea Other abnormal blood chemistry Peripheral arterial disease with history of revascularization Peripheral neuropathy 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 Type 2 diabetes mellitus Unspecified diseases of blood and blood-forming organs Surgical History H/O arterial bypass of lower limb (1999) right leg History of left hip hemiarthroplasty (03/17/19) History of lobectomy of lung (04/29/17) right upper lobe lobectomy with mediastinal lymph node biopsy History of PTCA History of quadruple bypass (1996) History of tonsillectomy and adenoidectomy Hx of appendectomy Hx of cataract extraction Family History Mother Diabetes Chronic kidney disease (CKD) Brother CAD (coronary artery disease) Cancer Diabetes Son CAD (coronary artery disease) Denies family history of Clotting disorder Dementia Suicide Anesthesia complication Bleeding disorder Lung disease Stroke Social History Smoking and tobacco status: former smoker (quit 24yrs ago) Alcohol intake: never Lives independently: Yes Household members: spouse History of recent travel: No Special jazlyn needs: No Vitals/I&O/Wt Last Vital Signs Temp 97.8 F 01/29/22 13:56 Pulse 80 01/29/22 15:55 Resp 16 01/29/22 15:55 BP 164/96 01/29/22 15:55 Pulse Ox 96 01/29/22 15:55 O2 Del Method 01/29/22 15:55 Weight last 48 hrs Weight 77.111 kg Physical Exam Narrative: Pleasant cooperative male No active distress Family at the bedside Awake and alert Satting well on room air Abdomen soft No sign of ischemic ulcers of left leg Pleasant and cooperative Data : 01/30/22 01:06 01/30/22 01:06 A&P Assessment and plan (1) DVT (deep venous thrombosis): Status: Acute Qualifiers: Affected thrombotic vein of extremity: femoral Chronicity: acute DVT location: lower extremity Laterality: left Qualified Code(s): I82.412 - Acute embolism and thrombosis of left femoral vein (2) Carotid artery disease: Status: Acute (3) Arterial ischemia: Status: Acute Plan Arterial ischemia Start heparin drip DVT on Lovenox Will discuss with Dr. Chadwick at the time of discharge if we can switch his anticoagulating agent History of peripheral arterial disease No active signs of ischemic ulcers Significant arterial disease, LALY noted Dr. 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
--- NOTE | 2022-01-29 18:23 | PM.CONSULT ---
Providers/Reason For Consult Consulting Physician/Specialty*: Joaquín Nagel MD/ Interventional Cardiology Reason for Consult*: Critical limb ischemia Requesting Physician: Dr Contreras Primary Care Provider: Silver Alvarez DO History of Present Illness History of Present Illness Lynnette Sevilla is a 81 year old male with past medical history of peripheral artery disease with right-sided bypass surgery, history of lung cancer has presented with left-sided leg pain. He was found to have DVT of left lower leg. He has been found to have severely reduced LALY of 0.36. Patient has been having resting leg pain. Review of Systems Const: Denies: fever(s) Eyes: Denies: change in vision ENMT: Denies: throat pain Card: Denies: chest pain Resp: Denies: dyspnea GI: Denies: abdominal pain : Denies: flank pain Musc: Reports: extremity pain; Denies: neck pain Skin/Breast: Denies: rash Neuro: Denies: headache(s) Psych: Denies: anxiety Endo: Denies: polyuria Eren/Lymph: Denies: easy bruising All/Imm: Denies: urticaria Medications/Allergies Home Medications Medication Instructions Recorded Confirmed Last Taken Type allopurinol 300 mg tablet 300 mg PO DAILY@0800 06/28/19 01/29/22 01/29/22 History carvedilol 25 mg tablet 25 mg PO BID@0800,1800 06/28/19 01/29/22 01/29/22 History cholecalciferol (vitamin D3) 50 2,000 unit PO DAILY@0800 06/28/19 01/29/22 01/29/22 History mcg (2,000 unit) tablet (Vitamin D3) clopidogrel 75 mg tablet (Plavix) 75 mg PO DAILY@0806/28/19 01/29/22 01/29/22 History empagliflozin 25 mg tablet 12.5 mg PO DAILY@79906/28/19 01/29/22 01/29/22 History (Jardiance) gabapentin 300 mg capsule 300 mg PO BEDTIME@1800 06/28/19 01/29/22 01/28/22 History metformin 500 mg tablet,extended 1,000 mg PO BID@0800,1800 06/28/19 01/29/22 01/29/22 History release 24 hr omega 3-mwj-aan-fish oil 1,000 mg 2 cap PO BID 06/28/19 01/29/22 01/29/22 History (120 mg-180 mg) capsule (Fish Oil) tamsulosin 0.4 mg capsule (Flomax) 0.4 mg PO DAILY 06/28/19 01/29/22 01/29/22 History vitamin B12 0.5 mg-folic acid 1 mg 1 tab PO DAILY@0800 06/28/19 01/29/22 01/29/22 History tablet fluticasone propionate 50 2 spray intranasal DAILY PRN Nasal 08/03/19 01/29/22 09/17/19 History mcg/actuation nasal Congestion spray,suspension (Flonase Allergy Relief) lovastatin 40 mg tablet 40 mg PO BID@0800,1800 08/03/19 01/29/22 01/29/22 History tiotropium bromide 1.25 2 puff inhalation DAILY PRN 08/03/19 01/29/22 09/17/19 History mcg/actuation mist for inhalation Shortness Of Breath (Spiriva Respimat) cetirizine 10 mg tablet 5 mg PO DAILY PRN Allergy Symptoms 09/08/20 01/29/22 09/07/20 History enoxaparin 80 mg/0.8 mL 80 mg SUBCUT Q12H 11/29/20 01/29/22 01/29/22 History subcutaneous syringe (Lovenox) ofloxacin 0.3 % eye drops 2 drp otic (ear) BID 12 months #10 06/03/21 01/29/22 Unknown Rx mL ezetimibe 10 mg tablet (Zetia) 10 mg PO DAILY #90 tabs 10/02/21 01/29/22 01/29/22 Rx Allergies Allergy/AdvReac Type Severity Reaction Status Date / Time prednisone Allergy Unknown rash Verified 01/17/22 10:29 naproxen [From Aleve] Allergy ALGY-Hives Verified 01/17/22 10:29 Penicillins Allergy ALGY-Hives Verified 01/17/22 10:29 PFSH Acute PFSH: Medical History Acute embolism and thrombosis of deep veins of left upper extremity Acute ischemic multifocal multiple vascular territories stroke Allergic rhinitis BPH (benign prostatic hyperplasia) Carotid artery disease Celiac artery stenosis Chronic anticoagulation COPD (chronic obstructive pulmonary disease) Coronary artery disease DJD (degenerative joint disease) DVT (deep venous thrombosis) GERD (gastroesophageal reflux disease) Gout Hereditary hemochromatosis Hyperlipidemia Hypertension Lung cancer 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 Obstructive sleep apnea Other abnormal blood chemistry Peripheral arterial disease with history of revascularization Peripheral neuropathy 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 Type 2 diabetes mellitus Unspecified diseases of blood and blood-forming organs Surgical History H/O arterial bypass of lower limb (1999) right leg History of left hip hemiarthroplasty (03/17/19) History of lobectomy of lung (04/29/17) right upper lobe lobectomy with mediastinal lymph node biopsy History of PTCA History of quadruple bypass (1996) History of tonsillectomy and adenoidectomy Hx of appendectomy Hx of cataract extraction Family History Mother Diabetes Chronic kidney disease (CKD) Brother CAD (coronary artery disease) Cancer Diabetes Son CAD (coronary artery disease) Denies family history of Clotting disorder Dementia Suicide Anesthesia complication Bleeding disorder Lung disease Stroke Social History Smoking and tobacco status: former smoker (quit 24yrs ago) Alcohol intake: never Lives independently: Yes Household members: spouse History of recent travel: No Special jazlyn needs: No Vitals/I&O/Wt Last Vital Signs Temp 97.8 F 01/29/22 13:56 Pulse 67 01/29/22 18:00 Resp 24 H 01/29/22 18:00 BP 164/96 01/29/22 18:00 Pulse Ox 95 01/29/22 18:00 O2 Del Method 01/29/22 15:55 Weight last 48 hrs Weight 170 lb Physical Exam Narrative: GENERAL: Patient is alert, awake and oriented x3. [] NECK: No jugular vein distension. [] HEENT: No cyanosis. No icterus. No pallor. [] HEART: Regular S1 and S2. No murmur, rub or gallop. [] LUNGS: Clear to auscultate bilaterally. [] ABDOMEN: Soft, nontender and nondistended. Positive bowel sounds. No guarding, rebound or tenderness. [] CENTRAL NERVOUS SYSTEM: Grossly nonfocal. [] EXTREMITIES: Lower extremities with no edema bilaterally. Both legs are warm. Left lower extremity pulses are not palpable Data : 01/30/22 01:06 01/30/22 01:06 A&P Assessment and plan (1) DVT (deep venous thrombosis): Status: Acute Qualifiers: Affected thrombotic vein of extremity: femoral Chronicity: acute DVT location: lower extremity Laterality: left Qualified Code(s): I82.412 - Acute embolism and thrombosis of left femoral vein (2) Peripheral arterial disease with history of revascularization: Status: Acute (3) Critical limb ischemia of left lower extremity: Status: Acute Plan She has presented with DVT and left lower extremity critical limb ischemia. Having resting leg pain. Plan for revascularization tomorrow. Keep NPO. Start heparin drip. Continue Plavix and aspirin. Thank you for involving us with care of this patient. We will continue to follow. Please call with questions. Consult Attestations Medical Necessity Statement: Care expected to cross 2 midnights. Patient has presented with DVT and critical limb ischemia of left lower extremity. Plan for revascularization of left lower extremity tomorrow. 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
[2022-01-29 18:26] LABS: Platelet Count 172 10^3/cmm (130-400)
[2022-01-29] MEDS: heparin 5,000 unit/mL INJ 1 mL IV (18:29)
[2022-01-29] MEDS: heparin drip 25,000 UNIT/500 ML PREMIX 21.59 UNIT IV (18:46)
[2022-01-29] MEDS: sodium chloride 0.9% 1,000 ML 75 ML IV (18:48)
--- NOTE | 2022-01-29 19:13 | PC.NURSE ---
Patient started on heparin gtt per orders with 3900 bolus given, patient without c/o pain or other discomfort. Per Dr. Contreras patient may eat and to be NPO at midnight. Patients has gone home and would like to be notified of procedure time, Annemarie Sevilla,
[2022-01-29 19:30] LABS: Fibrinogen 495 mg/dL (174-498)
--- NOTE | 2022-01-29 19:58 | PC.NURSE ---
Report called to Angely GILBERT, patient admitting to 254.2.
[2022-01-29 20:33] LABS: Partial Thromboplastin Time > 250.0 SECONDS (23.9-36.7)
[2022-01-29 20:38] LABS: Platelet Count 172 10^3/cmm (130-400)
[2022-01-29] MEDS: carvedilol 25 mg Tablet PO (22:03)
[2022-01-29] MEDS: gabapentin 300 mg Capsule PO (22:03)
[2022-01-30] VITALS (67 sets, daily range): BP systolic 109–161; BP diastolic 57–89; PULSE 61–84; RESP 12–27; TEMP 36.8; O2SAT 87–97
[2022-01-30 01:46] LABS: Basophils % 0.6 %; Eosinophils # 0.3 10^3/uL (0.0-0.8); Eosinophils % 4.2 %; Hematocrit 50.2 % (42.0-52.0); Hemoglobin 16.7 g/dL (11.7-16.6); Lymphocytes # 1.6 10^3/uL (0.8-4.8); Lymphocytes % 23.8 %; Mean Corpuscular HGB Conc 33.3 g/dL (30.0-36.0); Mean Corpuscular Hemoglobin 30.1 pg (28.0-34.0); Mean Corpuscular Volume 90.6 fl (80-94); Mean Platelet Volume 9.5 fL (7.4-10.4); Monocytes # 0.5 10^3/uL (0.2-0.9); Monocytes % 7.4 %; Neutrophils # 4.13 10^3/uL (1.8-7.7); Neutrophils % 63.5 %; Nucleated Red Blood Cells % 0 %; Platelet Count 183 10^3/cmm (130-400); Red Blood Count 5.54 10^6/uL (4.1-5.3); Red Cell Distribution Width 13.7 % (12.1-15.1); White Blood Count 6.5 10^3/uL (4.0-10.0)
[2022-01-30 01:53] LABS: Partial Thromboplastin Time 61.5 SECONDS (23.9-36.7)
[2022-01-30 02:06] LABS: Anion Gap 14.1 (5-19); Blood Urea Nitrogen 21 mg/dL (8-23); Calcium 9.9 mg/dL (8.5-10.5); Carbon Dioxide 28 mmol/L (22-29); Chloride 104 mmol/L (98-107); Creatinine Clr Calc Pharmacy 73.2047; Glucose 127 mg/dL (65-115); Osmolality Calculated 299 mOsm/kg (285-295); Potassium 4.1 mmol/L (3.5-5.1); Sodium 142 mmol/L (136-145)
--- NOTE | 2022-01-30 05:13 | XACV_ITS ---
Ht: 168 cm Wt: 77 kg BSA: 1.91 m2 Any Known Allergies: Other Gender: Male : 1940 Exam Type: Invasive Peripheral Vascular Procedure(s): Procedure Description: Diagnostic procedure Procedure Description: Peripheral Cath Diagnostic Procedure Procedure Description: Abdominal aortic angiography Procedure Description: Lower extremities' angiography Procedure Description: Peripheral vascular Intervention Procedure Description: PV Balloon Procedure Description: PV Stent Procedure Description: PV Atherectomy Procedure Description: Miscellaneous Procedure Description: ACT Exam Priority: Routine Abdominal Diagnostic Findings Distal abdominal aorta: Patent. Lower Extremity Diagnostic Findings Left lower extremity: Left common iliac artery: Patent Left external iliac artery: Patent Left profunda femoris: Patent Left SFA: Chronic total occlusion of the mid segment with reconstitution of distal vessel via collaterals. Popliteal artery: Patent Anterior tibial artery: Patent TP segment: Patent Posterior tibial artery: Patent Peroneal artery: Patent. Left Mid-longitudinal Superficial Femoral Artery: 100 % stenosis. Lower Extremity Interventional Findings Left Mid-longitudinal Superficial Femoral Artery: 100% stenosis treated with AB [place] 35 [employer]PARTMENT Catheter [id number], AB [place] 35 OTW [id number], and AB [place] 35 [employer] DEPARTMENT Catheter [id number]. Procedure detail: We initially attempted to cross her total occluded mid SFA stenosis from contralateral access and going up and over. However crossing was not possible. We then obtained access in right posterior tibial artery. Using seeker support catheter and Glidewire we were able to cross totally occluded SFA segment. Orbital atherectomy was then performed after switching Glidewire for a EquityZener wire. Balloon angioplasty initially using 5.0 x 200 mm balloon was performed. This was followed by balloon angioplasty with a 6.0 x 100 mm balloon. However flow was not restored completely. We then proceeded with the deploying stent. 6.0 x 100 mm absolute Pro self-expanding stent was initially deployed. This was followed by two 6.0 x 60 mm absolute Pro stents deployed distally. We dilated the stents with a 6.0 x 200 mm balloon. At this time final angiogram was performed that showed excellent stent expansion, brisk flow and no residual stenosis. Glidewire and pedal sheath was removed. 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 Conclusions Totally occluded SFA s/p successful revascularization with balloon angioplasty, orbital arthrectomy and stent placement.. Left Mid-longitudinal Superficial Femoral Artery was treated with three stents. Recommendations Patient will need anticoagulation and Plavix. Aggressive risk factor control. Outpatient cardiology follow-up in 4 weeks. Hemodynamic Data Phase:Rest AO : 122.0 / 59.0 ( 84.0 ) @ 9:05:00 AM 177.0 / 80.0 ( 119.0 ) @ 9:12:00 AM Access Site Site: Right Femoral artery Sheath Size: 6 Fr Hemost... Method: Suture Hemost... Success: Successful Site: Left Pedal Sheath Size: 6 Fr Hemost... Method: TR Band Hemost... Success: Successful Procedure Details Findings Procedure Consent Obtained. Admit Source: In Patient. Pre-Procedure Time Out. Identified patient by full name and date of as verbalized by the patient/guarantor. Does the consent match the physician's order: Yes. Accurate & Complete Informed Consent: Yes. Inpatient/Outpatient History & Physical on Chart: Yes. If H&P is completed, is and addenduem needed: No; If yes, is the addendum complete: N/A. Visualize and Verify Site with Patient/Guarantor: N/A. Relevant Radiology Images available: Yes. The risks, benefits, and alternatives of sedation and/or procedure were discussed by physician. The patient agrees to continue. Procedure started. Correct patient, site and procedure confirmed by cath team. Current diagnosis: Critical Limb Ischemia. PERRLA. 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 Lungs clear x 5 lobes. IV Site on Arrival: 20 gauge in the left forearm. IV Fluids: 0.9% NaCl at KVO. 400 mL infused prior to slabber light. Pre Procedural Pulses: bilateral posterior tibial was Doppled. Pre Procedural Pulses: bilateral dorsalis pedis was Doppled. Pre Procedural Pulses: bilateral radial was 2+. Oxygen started at 3liters/min via nasal canula. bilateral groins was prepped with chloroprep then draped in the usual sterile fashion. Physician notified. Baseline sample Acquired. HR: 78 BPM. Physician arrived. Physician scrubbed in. Equipment: 5F - Femoral. Equipment: 6F - Femoral. Equipment: Peripheral. Immediate Pre-Procedure Time Out. Correct Patient: Yes; Correct Procedure: Yes; Correct Site: Yes; Correct Patient Position: Yes; Correct Supplies: Yes; Dried Flammable Prep: Yes; Blood Products Available: N/A;. Lidocaine 1% infiltrated to the right groin. Heparinized Saline (2 units/mL), 1000 mL bag. Kit, Micropuncture. Cardiac Cath Pack. ACIST Manifold Kit Model BT 2000. Arterial access obtained with micropuncture set. Sheath inserted is a .035 6 fr Glidesheath. A 5 Fr UF catheter in over wire. Abdominal aortogram performed in AP @ 10 mL/sec for a total of 30 mL. Glidewire inserted. Wire advanced down the left SFA and parked in the SFA MID, Left side. UF catheter removed over the wire. Sheath upsized to a 6 Fr. Seeker catheter inserted over the wire. Attempting to cross mid SFA, Left lesion. Wire removed. Hand injection performed through the seeker catheter. Glidewire reinserted. Unable to advance seeker/Glidewire. Physician review of films. WIRE/SEEKER removed. Left common iliac selected and arteriogram with runoff performed @ 10 mL/sec for a total of 30 mL. Anesthesia notified to help sedate the patient. Anesthesia arrived to sedate and manage the patient. Prepping pedal access from the left lower extremity. Inventory: Pedal access Kit. Left pedal area prepped with chloraprep and draped using sterile technique. Lidocaine 1% infiltrated to the left pedal area. Attempting access using ultrasound guidance. Arterial access obtained using pedal access kit. Sheath upsized to a 6 Fr. Hand injection performed of the Posterior Tibial, Left. ACT drawn. Results 119 seconds. Therapeutic limits - pre-heparin administration 90-150 seconds and monitoring heparin during a vascular procedure >250 seconds. A new Glidewire inserted through the pedal access. Seeker inserted over the glidewire. Seeker/Glidewire advanced to the mid SFA, Left. Attempting to cross the mid SFA lesion. Wire/Seeker advanced across lesion and parked in the common femoral, Left. Wire removed. Hand injection through the seeker of the common femoral, Left. Viper wire inserted. Parked in the Distal Aorta. Seeker out over the wire. 1.5 CSI pili inserted. Atherectomy performed of Mid Sfa, left. Right Common Femoral flexor sheath injected at 10 ml/sec for a total of 20 seconds. Runoff of the left lower extremity performed. CSI pili removed. Seeker inserted over the viper wire. Viper wire removed. Glidewire inserted through the seeker. Seeker removed. Inflation number : 1 A AB [place] 35 [employer] Catheter [id number] was prepped and advanced across the Mid Superficial Femoral, Left , then inflated to 8 PRADIP for 1:33 seconds. Balloon out over the glidewire. Right Common Femoral flexor sheath injected at 10 ml/sec for a total of 10 seconds. Runoff of the left lower extremity performed. Inflation number : 2 A AB [place] 35 OTW [id number] was prepped and advanced across the Mid Superficial Femoral, Left , then inflated to 6 PRADIP for 2:01 seconds. Inflation number: 3 The AB [place] 35 OTW [id number] was reinflated across the Mid Superficial Femoral, Left, to 6 PRADIP for 2:02 seconds. Right Common Femoral flexor sheath injected at 10 ml/sec for a total of 20 seconds. Runoff of the left lower extremity performed. Balloon out over the wire. 6.0 x 100 Absolute Pro stent inserted over the glidewire. Positioned by MD then deployed in the mid SFA. EXPIRATION 02-20-2024 LOT # [id number]. Stent Deployment System Removed. 6.0 x 60 Absolute Pro stent inserted over the glidewire. Positioned by MD then deployed in the mid SFA. EXPIRATION 03-21-2024 LOT # [id number]. Stent Deployment System Removed. 6.0 x 60 Absolute Pro stent inserted over the glidewire. Positioned by MD then deployed in the mid SFA. EXPIRATION 03-21-2024 LOT # [id number]. Stent Deployment System Removed. Inflation number : 4 A AB [place] 35 [employer] DEPARTMENT Catheter [id number] was prepped and advanced across the Mid Superficial Femoral, Left , then inflated to 12 PRADIP for 2:01 seconds. Balloon out over the glidewire. Right Common Femoral flexor sheath injected at 10 ml/sec for a total of 20 seconds. DSA of the left lower extremity performed. 45 cm flexor sheath exchanged 6 FR cordis sheath 11 cm. this the was in the right femoral artery. Glidewire removed. A Suture was successful obtaining hemostatsis at the Right Femoral artery insertion site. A TR Band was successful obtaining hemostatsis at the Left Pedal insertion site. TR band placed to left pedal. Hemostasis obtained. Right femoral Sheath(s) sutured into position with 2-0 silk and sterile 4x4's and Op-site applied over the site. No oozing or signs and symptoms of hematoma noted. Arterial sheath flushed and connected to tranducer and pressure bag with heparinized saline. Post Procedure: Pulses reassessed and unchanged. PERRLA. 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 No VTE prophylaxis required. Medication waste: Lido 5 ml Heparin 4,000 units Fentanyl 100 mcg. Physiciab scrubbed out. Total IV fluids: 141 mL. Fluoro: 23:00. Contrast type used: Visipaque 320 mgI/mL, 200 mL bottle. [id number]. Post-op diagnosis: Total Occlusion of the prox/mid SFA. Status Post revascularization with stents. Complications: None. Estimated blood loss: 5mL-10mL. Responsiveness - Normal response to verbal stimuli; alert and oriented, PERRLA. Airway - Unaffected, no intervention required; spontaneous ventilation. Circulation: W/N/L, pulses unchanged. Nausea/Vomiting: No. Procedure completed. Patient transferred by bed to ICU. Vital chart was stopped. Procedure Medications Start: 6:35 AM Stop: 6:35 AM Medication: Versed Amount: 1 mg Route: I.V. Start: 6:35 AM Stop: 6:35 AM Medication: Fentanyl Amount: 50 mcg Route: I.V. Start: 6:39 AM Stop: 6:39 AM Medication: Versed Amount: 1 mg Route: I.V. Start: 6:43 AM Stop: 6:43 AM Medication: Fentanyl Amount: 50 mcg Route: I.V. Start: 6:51 AM Stop: 6:51 AM Medication: Versed Amount: 1 mg Route: I.V. Start: 7:01 AM Stop: 7:01 AM Medication: Versed Amount: 1 mg Route: I.V. Start: 7:31 AM Stop: 7:31 AM Medication: Heparin Amount: 2000 units Route: I.V. Start: 7:45 AM Stop: 7:45 AM Medication: Heparin Amount: 3000 units Route: I.V. Start: 7:59 AM Stop: 7:59 AM Medication: Nitrogylcerin Amount: 400 mcg Route: I.A. Start: 8:09 AM Stop: 8:09 AM Medication: Heparin Amount: 2000 units Route: I.V. Start: 8:12 AM Stop: 8:12 AM Medication: Nitrogylcerin Amount: 400 mcg Route: I.A. I, the attending physician, have reviewed and verified all procedure medications. Yes, all medications given per verbal order History/Risk Factors Hypertension: Yes Dyslipidemia: Yes Peripheral Arterial Disease (PAD): Yes Obesity: No Renal Disease: No Prior Interventions PCI: No CABG: No Valve Surgery: No Report Signatures Finalized by Joaquín Nagel MD on 02/08/2022 10:42 PM
--- NOTE | 2022-01-30 06:35 | W.PM.OPSUD ---
Surgery/Procedure H&P Update DATE OF PROCEDURE: January 30, 2022 DATE H&P PERFORMED: 01/30/22 H&P UPDATE INFORMATION: I have reviewed H&P completed within last 30 days, I have examined patient prior to procedure and No changes to prior documentation PREOP DIAGNOSIS: Critical limb ischemia of left lower extremity PRIMARY INDICATION FOR PROCEDURE: Critical limb ischemia of left lower extremity PLANNED PROCEDURE: Peripheral angiogram with possible percutaneous revascularization. PATIENT REASSESSED PRIOR TO SEDATION, WITH NO CHANGE NOTED: Yes PHYSICAL EXAM: alert, oriented x 3, clear to auscultation bilaterally and regular rate & rhythm AIRWAY EVAL/ANESTHESIA PLAN: ASA III, Local Anesthesia, Risks, benefits & alternatives of sedation and/or procedure discussed and Patient agrees to continue as planned ADDITIONAL INFORMATION: Moderate sedation
--- NOTE | 2022-01-30 07:57 | ANES.PREANE2 ---
Pre-Anesthetic Assessment Height/Weight: Height 1.68 m Weight 77.111 kg Temp Pulse Resp BP Pulse Ox O2 Del Method 97.8 F 61 16 124/76 95 01/29/22 13:56 01/29/22 21:55 01/29/22 21:55 01/29/22 19:08 01/29/22 21:55 01/29/22 21:55 Preop Diagnosis: CVA Anesthetic Plan ASA status: 4 Anesthesia: General and MAC Other: Called urgently to tailings dam laborer to assist with sedation after patient intolerance of procedure. Extesive cardiac hx including CVA, PVD, carotid stenosis, chronic anticoagulation, CAD, HTN, DLD, DVT, PAD, as well as hx of COPD, gout, COPD, PEYMAN, alzheimer with multi-infarct dementia, hemochromatosis, Medications/Allergies Home Medications Medication Instructions Recorded Confirmed Last Taken Type allopurinol 300 mg tablet 300 mg PO DAILY@0800 06/28/19 01/29/22 01/29/22 History carvedilol 25 mg tablet 25 mg PO BID@08,179906/28/19 01/29/22 01/29/22 History cholecalciferol (vitamin D3) 50 2,000 unit PO DAILY@79906/28/19 01/29/22 01/29/22 History mcg (2,000 unit) tablet (Vitamin D3) clopidogrel 75 mg tablet (Plavix) 75 mg PO DAILY@79906/28/19 01/29/22 01/29/22 History empagliflozin 25 mg tablet 12.5 mg PO DAILY@79906/28/19 01/29/22 01/29/22 History (Jardiance) gabapentin 300 mg capsule 300 mg PO BEDTIME@179906/28/19 01/29/22 01/28/22 History metformin 500 mg tablet,extended 1,000 mg PO BID@0800,1800 06/28/19 01/29/22 01/29/22 History release 24 hr omega 1-wam-ktr-fish oil 1,000 mg 2 cap PO BID 06/28/19 01/29/22 01/29/22 History (120 mg-180 mg) capsule (Fish Oil) tamsulosin 0.4 mg capsule (Flomax) 0.4 mg PO DAILY 06/28/19 01/29/22 01/29/22 History vitamin B12 0.5 mg-folic acid 1 mg 1 tab PO DAILY@0800 06/28/19 01/29/22 01/29/22 History tablet fluticasone propionate 50 2 spray intranasal DAILY PRN Nasal 08/03/19 01/29/22 09/17/19 History mcg/actuation nasal Congestion spray,suspension (Flonase Allergy Relief) lovastatin 40 mg tablet 40 mg PO BID@0800,1800 08/03/19 01/29/22 01/29/22 History tiotropium bromide 1.25 2 puff inhalation DAILY PRN 08/03/19 01/29/22 09/17/19 History mcg/actuation mist for inhalation Shortness Of Breath (Spiriva Respimat) cetirizine 10 mg tablet 5 mg PO DAILY PRN Allergy Symptoms 09/08/20 01/29/22 09/07/20 History enoxaparin 80 mg/0.8 mL 80 mg SUBCUT Q12H 11/29/20 01/29/22 01/29/22 History subcutaneous syringe (Lovenox) ofloxacin 0.3 % eye drops 2 drp otic (ear) BID 12 months #10 06/03/21 01/29/22 Unknown Rx mL ezetimibe 10 mg tablet (Zetia) 10 mg PO DAILY #90 tabs 10/02/21 01/29/22 01/29/22 Rx Allergies Allergy/AdvReac Type Severity Reaction Status Date / Time prednisone Allergy Unknown rash Verified 01/17/22 10:29 naproxen [From Aleve] Allergy ALGY-Hives Verified 01/17/22 10:29 Penicillins Allergy ALGY-Hives Verified 01/17/22 10:29 Current Medications Generic Name Dose Route Start Last Admin Trade Name Freq PRN Reason Stop Dose Admin Carvedilol 25 mg 01/29/22 20:48 01/29/22 22:03 Carvedilol 25 Mg Tablet PO 25 mg BID@0800,1800 ASHLEY Administration Gabapentin 300 mg 01/29/22 20:48 01/29/22 22:03 Gabapentin 300 Mg Capsule PO 300 mg BEDTIME@1800 ASHLEY Administration Heparin Sodium (Porcine) 0 unit 01/29/22 17:46 01/29/22 18:29 Heparin 5,000 Unit/Ml Inj 1 Ml IV 3,900 unit PRN PRN Administration Heparin weight-base protocol Protocol Heparin Sodium/Sodium Chloride 25,000 unit in 500 mls @ 0 mls/hr 01/29/22 18:00 01/29/22 18:46 Heparin Drip IV 14 unit/kg/hr .Q0M ASHLEY 21.59 mls/hr Administration Protocol Per Protocol Sodium Chloride 1,000 mls @ 75 mls/hr 01/29/22 18:30 01/29/22 18:48 Sodium Chloride 0.9% IV 75 mls/hr .[id number] ASHLEY Administration PFSH Anesthesia Medical History Acute embolism and thrombosis of deep veins of left upper extremity Acute ischemic multifocal multiple vascular territories stroke Allergic rhinitis BPH (benign prostatic hyperplasia) Carotid artery disease Celiac artery stenosis Chronic anticoagulation COPD (chronic obstructive pulmonary disease) Coronary artery disease DJD (degenerative joint disease) DVT (deep venous thrombosis) GERD (gastroesophageal reflux disease) Gout Hereditary hemochromatosis Hyperlipidemia Hypertension Lung cancer 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 Obstructive sleep apnea Other abnormal blood chemistry Peripheral arterial disease with history of revascularization Peripheral neuropathy 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 Type 2 diabetes mellitus Unspecified diseases of blood and blood-forming organs Surgical History H/O arterial bypass of lower limb (1999) right leg History of left hip hemiarthroplasty (03/17/19) History of lobectomy of lung (04/29/17) right upper lobe lobectomy with mediastinal lymph node biopsy History of PTCA History of quadruple bypass (1996) History of tonsillectomy and adenoidectomy Hx of appendectomy Hx of cataract extraction Family History Mother Diabetes Chronic kidney disease (CKD) Brother CAD (coronary artery disease) Cancer Diabetes Son CAD (coronary artery disease) Denies family history of Clotting disorder Dementia Suicide Anesthesia complication Bleeding disorder Lung disease Stroke Social History Smoking and tobacco status: former smoker (quit 24yrs ago) Alcohol intake: never Lives independently: Yes Household members: spouse History of recent travel: No Special jazlyn needs: No Data Anesthesia : 01/30/22 01:06 01/30/22 01:06 Short CBC 01/29/22 01/29/22 01/30/22 Range/Units 18:18 19:06 01:06 WBC 6.5 (4.0-10.0) 10^3/uL Hgb 16.7 H (11.7-16.6) g/dL Hct 50.2 (42.0-52.0) % MCV 90.6 (80-94) fl Plt Count 172 172 183 (130-400) 10^3/cmm Neut % (Auto) 63.5 % Neut # (Auto) 4.13 (1.8-7.7) 10^3/uL BMP 01/30/22 01:06 Sodium 142 Potassium 4.1 Chloride 104 Carbon Dioxide 28 BUN 21 Creatinine 0.8 Glucose 127 H Calcium 9.9 Coags 01/29/22 01/30/22 19:06 01:06 PT 14.50 INR 1.10 APTT > 250.0 H* 61.5 H D Fibrinogen 495 Cardiac Studies: Echocardiogram Ultrasound 09/17/19 Transesophageal Echocardiogram 07/06/19
--- NOTE | 2022-01-30 09:00 | PC.NURSE ---
Heparin gtt not running when pt arrived from medical lab scientist. Stopped drip in AUG to
[2022-01-30] MEDS: carvedilol 25 mg Tablet PO ×2 (09:48→16:54)
[2022-01-30] MEDS: atorvastatin 40 mg Tablet 20 MG PO ×2 (09:48→16:54)
[2022-01-30] MEDS: allopurinol 300 mg Tablet PO (09:48)
[2022-01-30] MEDS: tamsulosin 0.4 mg Capsule PO (09:48)
--- NOTE | 2022-01-30 10:13 | ANE.PACU2 ---
Inpatient post-anesthesia follow up: Airway intact: Yes Vital signs: Temperature 97.8 F Pulse Rate 61 Respiratory Rate 16 Blood Pressure 124/76 Pulse Oximetry 95 Oxygen Delivery Me thod Room Air Oxygen Flow Rate Fraction of Inspir ed Oxygen Hydration adequate: Yes Nausea and vomiting: No Pain level: 1 Mental status: Baseline
[2022-01-30] MEDS: ezetimibe 10 mg Tablet PO (10:20)
--- NOTE | 2022-01-30 10:43 | PC.NURSE ---
Pt arrived in ICU at 0830 on an oxy mask with dry dressing to right groin and RT band on left ankle. No bleeding or hematoma from either site. at bedside shortly after.
--- NOTE | 2022-01-30 11:28 | P.PN_ITS ---
Subjective Subjective: Patient is doing much better today, he got 3 stents in his left leg He has to stay still for 4 hours Will start heparin drip 4 hours after the sheath has been pulled ICU nurse updated He can eat now Plan to discharge tomorrow Will discuss with Dr. Chadwick regarding his anticoagulating agent Vitals/I&O/Wt Last Vital Signs Temp 97.8 F 01/29/22 13:56 Pulse 61 01/29/22 21:55 Resp 16 01/29/22 21:55 BP 124/76 01/29/22 19:08 Pulse Ox 95 01/29/22 21:55 O2 Del Method 01/29/22 21:55 01/29/22 01/30/22 01/30/22 22:59 06:59 14:59 Output Total 540 / 540 705 / 1245 Balance -540 / -540 -705 / -1245 Weight last 48 hrs Weight 77.111 kg Physical Exam Narrative: Patient is laying supine Awake and alert Abdomen soft No signs of vessel compromise Both feet are warm to touch, good palpable pulses of dorsalis pedis bilaterally No signs of ischemic ulcers S1, S2 Currently doing well on room air Family at the bedside Data : 01/30/22 01:06 01/30/22 01:06 A&P Assessment and plan (1) Arterial ischemia: Status: Acute (2) DVT (deep venous thrombosis): Status: Acute Qualifiers: Affected thrombotic vein of extremity: femoral Chronicity: acute DVT location: lower extremity Laterality: left Qualified Code(s): I82.412 - Acute embolism and thrombosis of left femoral vein Plan Severe peripheral arterial disease Status post 3 stents Patient has received loading dose of aspirin and Plavix Will start heparin drip 4 hours after sheath has been pulled Patient is doing well He can eat and drink Will discuss with Dr. 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
[2022-01-30 12:42] LABS: Partial Thromboplastin Time 44.4 SECONDS (23.9-36.7)
[2022-01-30] MEDS: clopidogrel 300 mg Tablet 600 MG PO (13:31)
[2022-01-30 13:32] LABS: Glucose Point of Care 153 mg/dL (70-110)
[2022-01-30] MEDS: insulin lispro 100 unit/1 mL SUBCUT (16:54)
[2022-01-30] MEDS: gabapentin 300 mg Capsule PO (16:54)
[2022-01-30 17:23] LABS: Glucose Point of Care 244 mg/dL (70-110)
[2022-01-30] MEDS: omega-3 fatty acids 1,000 mg Capsule 1000 MG PO (18:02)
--- NOTE | 2022-01-30 18:13 | PC.NURSE ---
Sheath removed from groin at 1330 per orders. Dressing put on dry non bleeding site. No hematoma noted. Right ankle TR band was removed and dressing placed on a non bleeding site. No hematoma noted. Heparin gtt started per orders 4 hours post sheath removal.
--- NOTE | 2022-01-30 19:18 | PC.NURSE ---
During beside report, new hematoma is noted to right femoral puncture site. Area is soft to palpation, no c/o increased pain.
--- NOTE | 2022-01-30 19:21 | PM.PN ---
Subjective Subjective: Patient is doing well. He underwent successful revascularization of left lower extremity with arthrectomy and stent placement and left SFA that was totally occluded with weak collaterals supply downstream. Vitals/I&O/Wt Last Vital Signs Temp 97.8 F 01/29/22 13:56 Pulse 73 01/30/22 18:30 Resp 20 H 01/30/22 18:30 BP 132/71 01/30/22 18:00 Pulse Ox 93 01/30/22 17:30 O2 Del Method 01/29/22 21:55 01/30/22 01/30/22 01/30/22 06:59 14:59 22:59 Intake Total 656.503 / 656.503 0 / 656.503 Output Total 705 / 1245 400 / 400 Balance -705 / -1245 256.503 / 256.503 0 / 256.503 Weight last 48 hrs Weight 170 lb Physical Exam Narrative: GENERAL: Patient is alert, awake and oriented x3. [] NECK: No jugular vein distension. [] HEENT: No cyanosis. No icterus. No pallor. [] HEART: Regular S1 and S2. No murmur, rub or gallop. [] LUNGS: Clear to auscultate bilaterally. [] ABDOMEN: Soft, nontender and nondistended. Positive bowel sounds. No guarding, rebound or tenderness. [] CENTRAL NERVOUS SYSTEM: Grossly nonfocal. [] EXTREMITIES: Lower extremities with no edema bilaterally. Both legs are warm. Left lower extremity palpable pulses. Data : 01/30/22 01:06 01/30/22 01:06 A&P Assessment and plan (1) DVT (deep venous thrombosis): Status: Acute Qualifiers: Affected thrombotic vein of extremity: femoral Chronicity: acute DVT location: lower extremity Laterality: left Qualified Code(s): I82.412 - Acute embolism and thrombosis of left femoral vein (2) Peripheral arterial disease with history of revascularization: Status: Acute (3) Critical limb ischemia of left lower extremity: Status: Acute Plan Patient had presented with DVT and left lower extremity critical limb ischemia. He underwent successful revascularization of left lower extremity with arthrectomy and stent placement through left posterior tibial artery access site. Restart heparin drip 4 hours post sheath removal Continue Plavix and aspirin. Thank you for involving us with care of this patient. We will continue to follow. Please call with questions. 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
[2022-01-30 22:59] LABS: Glucose Point of Care 166 mg/dL (70-110)
[2022-01-31] VITALS (22 sets, daily range): BP systolic 99–172; BP diastolic 56–147; PULSE 65–91; RESP 6–26; O2SAT 88–96
[2022-01-31 00:51] LABS: Basophils # 0.1 10^3/uL (0.0-0.1); Basophils % 0.7 %; Eosinophils # 0.3 10^3/uL (0.0-0.8); Eosinophils % 3.9 %; Hematocrit 48.8 % (42.0-52.0); Hemoglobin 16.3 g/dL (11.7-16.6); Lymphocytes # 1.1 10^3/uL (0.8-4.8); Lymphocytes % 12.9 %; Mean Corpuscular HGB Conc 33.4 g/dL (30.0-36.0); Mean Corpuscular Hemoglobin 30.7 pg (28.0-34.0); Mean Corpuscular Volume 91.9 fl (80-94); Mean Platelet Volume 9.2 fL (7.4-10.4); Monocytes # 0.6 10^3/uL (0.2-0.9); Neutrophils # 6.52 10^3/uL (1.8-7.7); Neutrophils % 75.2 %; Nucleated Red Blood Cells % 0 %; Platelet Count 163 10^3/cmm (130-400); Red Blood Count 5.31 10^6/uL (4.1-5.3); Red Cell Distribution Width 13.9 % (12.1-15.1); White Blood Count 8.7 10^3/uL (4.0-10.0)
[2022-01-31 00:53] LABS: Partial Thromboplastin Time 64.8 SECONDS (23.9-36.7)
[2022-01-31 00:57] LABS: Anion Gap 13.1 (5-19); Blood Urea Nitrogen 19 mg/dL (8-23); Calcium 9.2 mg/dL (8.5-10.5); Carbon Dioxide 29 mmol/L (22-29); Chloride 100 mmol/L (98-107); Glucose 175 mg/dL (65-115); Osmolality Calculated 293 mOsm/kg (285-295); Potassium 4.1 mmol/L (3.5-5.1); Sodium 138 mmol/L (136-145)
[2022-01-31 07:03] LABS: Partial Thromboplastin Time 85.2 SECONDS (23.9-36.7)
[2022-01-31 07:31] LABS: Glucose Point of Care 172 mg/dL (70-110)
[2022-01-31] MEDS: atorvastatin 40 mg Tablet 20 MG PO (07:55)
[2022-01-31] MEDS: allopurinol 300 mg Tablet PO (07:55)
[2022-01-31] MEDS: insulin lispro 100 unit/1 mL SUBCUT (07:55)
[2022-01-31] MEDS: carvedilol 25 mg Tablet PO (07:55)
[2022-01-31] MEDS: omega-3 fatty acids 1,000 mg Capsule 1000 MG PO (08:00)
[2022-01-31] MEDS: clopidogrel 75 mg Tablet PO (08:00)
[2022-01-31] MEDS: tamsulosin 0.4 mg Capsule PO (08:00)
[2022-01-31] MEDS: ezetimibe 10 mg Tablet PO (08:00)
--- NOTE | 2022-01-31 08:20 | P.PN_ITS ---
Subjective Subjective: Patient is doing well. denies leg pain. No access site abnormalities Vitals/I&O/Wt Last Vital Signs Temp 98.2 F 01/30/22 20:00 Pulse 91 01/31/22 06:30 Resp 18 01/31/22 06:30 BP 99/80 01/31/22 06:00 Pulse Ox 90 01/31/22 06:30 O2 Del Method 01/29/22 21:55 01/30/22 01/31/22 01/31/22 22:59 06:59 14:59 Intake Total 0 / 656.503 203.497 / 203.497 Output Total 400 / 800 Balance -400 / -143.497 203.497 / 203.497 Weight last 48 hrs Weight 170 lb Physical Exam Narrative: GENERAL: Patient is alert, awake and oriented x3. [] NECK: No jugular vein distension. [] HEENT: No cyanosis. No icterus. No pallor. [] HEART: Regular S1 and S2. No murmur, rub or gallop. [] LUNGS: Clear to auscultate bilaterally. [] ABDOMEN: Soft, nontender and nondistended. Positive bowel sounds. No guarding, rebound or tenderness. [] CENTRAL NERVOUS SYSTEM: Grossly nonfocal. [] EXTREMITIES: Lower extremities with no edema bilaterally. Both legs are warm. Left lower extremity palpable pulses. Data : 01/31/22 00:25 01/31/22 00:25 A&P Assessment and plan (1) DVT (deep venous thrombosis): Status: Inactive Qualifiers: Affected thrombotic vein of extremity: femoral Chronicity: acute DVT location: lower extremity Laterality: left Qualified Code(s): I82.412 - Acute embolism and thrombosis of left femoral vein (2) Peripheral arterial disease with history of revascularization: Status: Inactive (3) Critical limb ischemia of left lower extremity: Status: Inactive Plan Patient had presented with DVT and left lower extremity critical limb ischemia. He underwent successful revascularization of left lower extremity with arthrectomy and stent placement through left posterior tibial artery access site. Continue anticoagulation with lovenox (hematology recommendation) and plavix. Thank you for involving us with care of this patient. Patient is stable to be discharged from our standpoint. Please call with questions. Attestations Medical Necessity Statement*: Care expected to cross 2 midnights. 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
--- NOTE | 2022-01-31 08:40 | PC.NURSE ---
Dr. Nagel cleared patient on cardiology, Dr. Contreras gave v.o. for d/c later today and to stop heparin cordell
--- NOTE | 2022-01-31 10:16 | PC.CHAP ---
Pastoral Care Encounter/Spiritual Assessment Type of Contact [] Declined warehouse sorter visit [] Patient/Family/Request visit [] Outpatient visit [] Follow-up visit [] Physician referral [] Code/Alert [x] Routine visit [] Staff referral [] Actively dying [] Patient sleeping [x] Family support [] [] Out of room [] Palliative care [] [] Receiving care in room [] Pre-surgical visit [] Trauma [] Long length of stay [x] ICU visit [] Other: Relational/Emotional Strength [] Patient feels connected with others/family/visitors/staff [] Distress [] Loneliness/isolation [] Abandonment Spirituality of Patient [] Person of Cecily [] Attends Scientologist of their Cecily [] Believes in Prayer [] Reads Bible or Yazidism materials [] There are Spiritual issues to be addressed Wire Mesh Knitter Interventions [x] Prayer [x] Active listening [x] Non-anxious presence [x] Spiritual/emotional support [] Crisis/trauma care [] Spiritual counseling [] Bereavement support [] Provided bereavement packet [] Provided Bible/devotional materials [] Provided toy/stuffed animal, coloring book to patient or family member [] Provided Communion [] Anointing/[place] [] Salvation [x] Completed spiritual assessment [] Other: Impact on Illness or Injury [] Angry [] Fearful [] Anxious [] Often cries [] Exhaustion [] Unable to work [] Unable to attend scientologist [] Unable to walk/stand [] Unable to read [] Unable to drive [] Unable to eat/drink [] Unable to sleep [] Unable to be with family [] Patient intubated [] Other: Summary being released today... gave God the glory for healing and comfort Time spent with patient
--- NOTE | 2022-01-31 11:36 | P.DS_ITS ---
Discharge Providers Date of Admission: 01/29/22 20:48 Date of Discharge: January 31, 2022 Attending Provider at Admission: Everardo Contreras MD Attending Provider at Discharge: Everardo Contreras MD Primary Care Provider: Silver Alvarez DO Diagnoses at Discharge Discharge Diagnosis (1) DVT (deep venous thrombosis): Status: Acute Qualifiers: Affected thrombotic vein of extremity: femoral Chronicity: acute DVT location: lower extremity Laterality: left Qualified Code(s): I82.412 - Acute embolism and thrombosis of left femoral vein (2) Peripheral arterial disease with history of revascularization: Status: Acute (3) Critical limb ischemia of left lower extremity: Status: Acute Reason for Visit Reason for Visit: Left leg pain Hospital Course Hospital Course 81-year-old male who is following up with Dr. Chadwick for his non-small lung cancer, he has failed his anti Xa inhibitor in the past, switched to therapeutic Lovenox for his DVT, presented to the hospital with worsening of his left leg pain. In the ER he was diagnosed with severe arterial ischemia along with a new DVT. He was started on heparin drip. I immediately consulted Dr. Tolbert who took him to the OR next day. He has history of peripheral arterial disease. Successful revascularization of left lower extremity with arthrectomy and stent placement and left SFA that was totally occluded but with collateral supply downstream. As per Dr. Nagel in total 3 stents were placed in his left lower extremity vasculature. Please see his note for further details. No postoperative complications, no signs of bleeding he was kept on heparin drip 4 hours after sheath removal. Did discuss with Dr. Chadwick about his anticoagulation. He recommended supra therapeutic Lovenox at this point. Dr. Nagel recommended continuing aspirin, Plavix and Lovenox for 30 days and then after a month continue Plavix and supratherapeutic Lovenox. He will follow-up with Dr. Farrukh Melchor and his PCP. I will try to arrange aspirin through our pharmacy because [facility] pharmacy will take time to provide aspirin at home. With recent revascularization he should not miss dual antiplatelet therapy for at least a month. 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 ASSISTANT request for service Routine Exams 01/30/22 05:13 Taken PTT [Partial Thromboplastin Time] Routine Lab 01/31/22 12:30 Ordered Laboratory Results WBC 8.7 10^3/uL (4.0-10.0) 01/31/22 00:25 RBC 5.31 10^6/uL (4.1-5.3) H 01/31/22 00:25 Hgb 16.3 g/dL (11.7-16.6) 01/31/22 00:25 Hct 48.8 % (42.0-52.0) 01/31/22 00:25 MCV 91.9 fl (80-94) 01/31/22 00:25 MCH 30.7 pg (28.0-34.0) 01/31/22 00:25 MCHC 33.4 g/dL (30.0-36.0) 01/31/22 00:25 RDW 13.9 % (12.1-15.1) 01/31/22 00:25 Plt Count 163 10^3/cmm (130-400) 01/31/22 00:25 MPV 9.2 fL (7.4-10.4) 01/31/22 00:25 Neut % (Auto) 75.2 % 01/31/22 00:25 Lymph % (Auto) 12.9 % 01/31/22 00:25 [place] % (Auto) 7.0 % 01/31/22 00:25 Eos % (Auto) 3.9 % 01/31/22 00:25 Baso % (Auto) 0.7 % 01/31/22 00:25 Neut # (Auto) 6.52 10^3/uL (1.8-7.7) 01/31/22 00:25 Lymph # (Auto) 1.1 10^3/uL (0.8-4.8) 01/31/22 00:25 [place] # (Auto) 0.6 10^3/uL (0.2-0.9) 01/31/22 00:25 Eos # (Auto) 0.3 10^3/uL (0.0-0.8) 01/31/22 00:25 Baso # (Auto) 0.1 10^3/uL (0.0-0.1) 01/31/22 00:25 Nucleated RBC % (auto) 0 % 01/31/22 00:25 Nucleated RBCs # 0.0 /100WBC 01/31/22 00:25 PT 14.50 SECONDS (12.1-14.9) 01/29/22 19:06 INR 1.10 (0.8-1.2) 01/29/22 19:06 APTT 85.2 SECONDS (23.9-36.7) H 01/31/22 06:26 Fibrinogen 495 mg/dL (174-498) 01/29/22 19:06 Sodium 138 mmol/L (136-145) 01/31/22 00:25 Potassium 4.1 mmol/L (3.5-5.1) 01/31/22 00:25 Chloride 100 mmol/L (98-107) 01/31/22 00:25 Carbon Dioxide 29 mmol/L (22-29) 01/31/22 00:25 Anion Gap 13.1 (5-19) 01/31/22 00:25 BUN 19 mg/dL (8-23) 01/31/22 00:25 Creatinine 0.9 mg/dL (0.7-1.2) 01/31/22 00:25 GFR Calculation Not Reportable 01/31/22 00:25 Glucose 175 mg/dL (65-115) H 01/31/22 00:25 POC Glucose 172 mg/dL (70-110) H 01/31/22 07:26 Calculated Osmolality 293 mOsm/kg (285-295) 01/31/22 00:25 Calcium 9.2 mg/dL (8.5-10.5) 01/31/22 00:25 Magnesium 2.0 mg/dL (1.7-2.3) 01/30/22 01:06 Vitals Last Vital Signs Temp 98.2 F 01/30/22 20:00 Pulse 72 01/31/22 10:30 Resp 17 01/31/22 10:30 BP 120/65 01/31/22 10:30 Pulse Ox 92 01/31/22 10:30 O2 Del Method 01/31/22 08:00 O2 Flow Rate 2 01/31/22 08:00 Discharge Plan Discharge Patient Disposition: Home Condition: Stable Prescriptions: New Lovenox 80 mg/0.8 mL syringe 85 mg SUBCUT Q12H Qty: 8 0RF aspirin 81 mg tablet,delayed release (DR/EC) 81 mg PO DAILY Qty: 30 0RF Continued ofloxacin 0.3 % drops 2 drp otic (ear) BID 360 Days Qty: 10 12RF Rx Instructions: Apply 2 drops to right ear twice daily ezetimibe [Zetia] 10 mg tablet 10 mg PO DAILY Qty: 90 0RF Rx Instructions: Must be seen for further refills carvedilol 25 mg Tablet 25 mg PO BID@0800,1800 tamsulosin [Flomax] 0.4 mg Capsule 0.4 mg PO DAILY gabapentin 300 mg Capsule 300 mg PO BEDTIME@1800 allopurinol 300 mg Tablet 300 mg PO DAILY@0800 vitamin I35-gvlaw acid 0.5-1 mg Tablet 1 tab PO DAILY@0800 cholecalciferol (vitamin D3) [Vitamin D3] 2,000 unit Tablet 2,000 unit PO DAILY@0800 omega 8-ids-sgv-fish oil [Fish Oil] 1,000 mg (120 mg-180 mg) Capsule 2 cap PO BID Jardiance 25 mg Tablet 12.5 mg PO DAILY@0800 cetirizine 10 mg Tablet 5 mg PO DAILY PRN (Reason: Allergy Symptoms) lovastatin 40 mg Tablet 40 mg PO BID@0800,1800 fluticasone propionate [Flonase Allergy Relief] 50 mcg/actuation [place],Suspension 2 spray INTRANASAL DAILY PRN (Reason: Nasal Congestion) Spiriva Respimat 1.25 mcg/actuation Mist 2 puff INHALATION DAILY PRN (Reason: Shortness Of Breath) Plavix 75 mg Tablet 75 mg PO DAILY@0800 Qty: 90 3RF Changed Lovenox 80 mg/0.8 mL syringe 85 mg SUBCUT Q12H Qty: 8 0RF Discontinued metformin 500 mg Tablet Extended Release 24 Hr 1,000 mg PO BID@0800,1800 Discharge Orders: Discharge Order (Routine); Ordered 01/31/22 Ordered By: Everardo Contreras Referrals: Silver Alvarez DO [Primary Care Provider] - (02/06/22 @ 09:00 am) Gabriel Merchant MD [Physician] - (April 05 @ 03:00 pm) Sridevi Borges FNP [Nurse Practitioner] - (02/07/22 @ 10:00 am) Shorty Chadwick MD [Hospitalist] - 1 week Discharge Diet: Cardiac Discharge Activity: Increase activity as tolerated Patient Instructions: Peripheral Vascular Stent Placement (DC), Peripheral Vascular Angioplasty (DC), Opioid Safety Activity Restrictions/Additional Instructions: you will take aspirin, Plavix and Lovenox 85 mg every 12 hours for only 1 month Then after 1 month you will take Lovenox 85 mg every 12 hours with Plavix, you will discontinue aspirin after [address] Chadwick has recommended increasing the dose of Lovenox from 80 mg to a higher dose, I have chosen 85 mg every 12 hours Please do not take metformin as it can cause some adverse reactions when your kidney function is not optimal Discharge Attestations Time Spent in Discharge Care*: less than 30 min Status at Discharge: Cognitive status at discharge: cognitively intact , Behavioral status at discharge: cooperative , Quality Metrics Clinical Quality Measures [ No reported AMI, CVA or VTE this stay] Coding Level of Care Code Acute Chg FW DC note Diagnoses DVT (deep venous thrombosis) I82.412 Affected thrombotic vein of extremity: femoral Chronicity: acute DVT location: lower extremity Laterality: left Peripheral arterial disease with history of revascularization I73.9; Z98.890 Critical limb ischemia of left lower extremity I70.222
[2022-01-31 12:03] LABS: Glucose Point of Care 152 mg/dL (70-110)
--- NOTE | 2022-01-31 12:44 | PC.NURSE ---
All discharge instructions and appointments educated to patient, informed to keep schedulded appointment with dr. Chadwick. patient signed d/c form, patient out of facility transported by
== END 2022-01-31 12:45 | disposition home or self-care (01) | DRG 271 ==
LOC: ER 16:29 → MEDSURG 23:24 → ICU 01-30 12:40
PROVIDERS: Internal Medicine; Admitting Provider Internal Medicine; Emergency Provider Physician Assistant; PCP Family Medicine; Visit Provider Internal Medicine
PROC: 04CL3ZZ Extirpation of Matter from Left Femoral Artery, Percutaneous Approach (ICD-10-PCS; principal; 2022-01-30 06:00)
PROC: 04CL3ZZ Extirpation of Matter from Left Femoral Artery, Percutaneous Approach (ICD-10-PCS; 2022-01-30 06:00)
DX: I82.412 Acute embolism and thrombosis of left femoral vein (principal); C34.90 Malignant neoplasm of unspecified part of unspecified bronchus or lung; C79.51 Secondary malignant neoplasm of bone; E11.51 Type 2 diabetes mellitus with diabetic peripheral angiopathy without gangrene; N40.0 Benign prostatic hyperplasia without lower urinary tract symptoms; J44.9 Chronic obstructive pulmonary disease, unspecified; I25.10 Atherosclerotic heart disease of native coronary artery without angina pectoris; Z95.1 Presence of aortocoronary bypass graft; M19.90 Unspecified osteoarthritis, unspecified site; K21.9 Gastro-esophageal reflux disease without esophagitis; E83.110 Hereditary hemochromatosis; Z99.81 Dependence on supplemental oxygen; Z79.02 Long term (current) use of antithrombotics/antiplatelets; Z79.84 Long term (current) use of oral hypoglycemic drugs; Z87.891 Personal history of nicotine dependence; Z90.2 Acquired absence of lung [part of]; Z96.642 Presence of left artificial hip joint; E11.42 Type 2 diabetes mellitus with diabetic polyneuropathy; G47.33 Obstructive sleep apnea (adult) (pediatric); E78.5 Hyperlipidemia, unspecified
CPT/HCPCS: 36415; 36416; 37225; 37226; 75625; 75710; 80048; 82962; 83735; 85025; 85049; 85347; 85384; 85610; 85730; 93925; 94760; 96360; 96361; 96365; 96366; 99152; 99153; 99285; C1724; C1725; C1769; C1876; C1887; C1894; J1644; J1815; J2250; J2704; J3010; J3490; J7030; Q9967

== ENCOUNTER → 2022-02-03 10:26 | Outpatient (BNVA) | payer MEDICARE, SELFPAY | PROVIDERS: PCP Family Medicine; Visit Provider Specialist | DX: M70.62 Trochanteric bursitis, left hip (principal) | CPT/HCPCS: 99213 ==

== ENCOUNTER 2022-02-04 12:29 | Outpatient (CLI) | payer MEDICARE, SELFPAY ==
[2022-02-04 13:04] LABS: Basophils # 0.1 10^3/uL (0.0-0.1); Basophils % 0.9 %; Eosinophils # 0.3 10^3/uL (0.0-0.8); Eosinophils % 5.2 %; Hematocrit 47.7 % (42.0-52.0); Hemoglobin 16.4 g/dL (11.7-16.6); Lymphocytes # 1.2 10^3/uL (0.8-4.8); Lymphocytes % 21.4 %; Mean Corpuscular HGB Conc 34.4 g/dL (30.0-36.0); Mean Corpuscular Hemoglobin 31.5 pg (28.0-34.0); Mean Corpuscular Volume 91.7 fl (80-94); Mean Platelet Volume 9.1 fL (7.4-10.4); Monocytes # 0.6 10^3/uL (0.2-0.9); Monocytes % 11.1 %; Neutrophils # 3.49 10^3/uL (1.8-7.7); Neutrophils % 60.9 %; Nucleated Red Blood Cells % 0 %; Platelet Count 206 10^3/cmm (130-400); White Blood Count 5.7 10^3/uL (4.0-10.0)
[2022-02-04 13:32] LABS: Alanine Aminotransferase 16 U/L (0-41); Albumin Level 4.2 g/dL (3.5-5.2); Alkaline Phosphatase 58 U/L (40-130); Anion Gap 16.4 (5-19); Aspartate Amino Transferase 13 U/L (0-40); Blood Urea Nitrogen 29 mg/dL (8-23); Calcium 9.9 mg/dL (8.5-10.5); Carbon Dioxide 28 mmol/L (22-29); Chloride 102 mmol/L (98-107); Globulin 2.9 g/dL (1.3-4.6); Glucose 144 mg/dL (65-115); Osmolality Calculated 302 mOsm/kg (285-295); Potassium 4.4 mmol/L (3.5-5.1); Sodium 142 mmol/L (136-145); Total Bilirubin 0.9 mg/dL (0.15-1.2); Total Protein 7.1 g/dL (6.6-8.7)
[2022-02-06 14:01] LABS: Prostate Specific Antigen 0.563 ng/mL (0-4)
[2022-02-06 20:20] LABS: Add On to Lab Order(s) Added
== END 2022-02-04 12:30 | disposition home or self-care (01) ==
PROVIDERS: PCP Family Medicine; Visit Provider Nurse Practitioner Family
DX: C34.11 Malignant neoplasm of upper lobe, right bronchus or lung (principal); N40.0 Benign prostatic hyperplasia without lower urinary tract symptoms
CPT/HCPCS: 80053; 84153; 85025

== ENCOUNTER 2022-02-06 12:41 | Oncology outpatient (recurring) (ONCR) | payer MEDICARE, SELFPAY ==
--- NOTE | 2022-02-05 14:00 | CT_ITS ---
WS: [id number] CT CHEST, ABDOMEN, AND PELVIS TECHNIQUE: Contrast-enhanced CT of the chest, abdomen, and pelvis with coronal and sagittal reformatt ed images. CLINICAL INFORMATION: compare to previous COMPARISON: CT chest abdomen pelvis 11/28/2021 and 07/04/2021 DLP: 1774.[address] scans at [facility] use at least one of these dose optimization techniques: automated e xposure control; mA and/or kV adjustment per patient size (includes targeted exams where dose is matc hed to clinical indication); or iterative reconstruction. CT CHEST: Mild chronic emphysematous change. Bibasilar atelectasis. No acute pulmonary infiltrates. No suspicio us pulmonary opacities. Prior right thoracotomy with RIGHT upper lobectomy. Sternotomy with CABG. No mediastinal or hilar lymphadenopathy. No axillary lymphadenopathy. No evidence of progressed disease in the chest. CT ABDOMEN AND PELVIS: Mild diffuse fatty infiltration the liver. Numerous hepatic cysts are stable in appearance. Cholelith iasis. No gallbladder wall thickening. Normal splenic and pancreatic parenchymal enhancement. Dense c alcified aortic atheromatous disease. Portal vein and splenic vein are normal. Adrenal glands are nor mal. Normal renal parenchymal enhancement. No hydronephrosis. No lymphadenopathy in the abdomen or pelvis. No evidence of small or large bowel obstruction. Sigmoid diverticulosis. No evidence of acute divert iculitis. Fat-containing right inguinal hernia. Intramedullary marco a and screw fixation LEFT hip. Small bladder cystocele. Heterogeneous nodular enhancing prostate measuring 4.2 x 4.4 x 3.5 CCM. Diff use thickening of the seminal vesicles bilaterally. Recommend correlation PSA. Findings suspicious fo r neoplasia/hyperplasia. CT/CT chest abd pel w con* IMPRESSION: 1. No evidence of progressed disease in the chest abdomen or pelvis. 2. Prior postoperative changes RIGHT upper lobectomy. 3. Stable 5 mm pulmonary nodule LEFT upper lobe. 4. Stable hepatic cysts. 5. Cholelithiasis. 6. Diverticulosis. 7. Enlarged heterogeneously enhancing nodular prostate with thickening of the seminal vesicles. 8. Correlation for neoplasia/hyperplasia. Recommend correlation PSA.
[2022-02-05] MEDS: iohexol 350 mg/mL 100 mL Btl IV (14:22)
[2022-02-05] MEDS: barium sulfate 450 mL Oral Susp PO (14:23)
[2022-02-09 13:47] LABS: Heparin XA Low Molecular 0.53 IU/mL
== END 2022-02-19 23:59 | disposition home or self-care (01) ==
PROVIDERS: PCP Family Medicine; Visit Provider Internal Medicine Medical Oncology
DX: C34.11 Malignant neoplasm of upper lobe, right bronchus or lung (principal); C79.51 Secondary malignant neoplasm of bone; Z79.01 Long term (current) use of anticoagulants; Z86.73 Personal history of transient ischemic attack (TIA), and cerebral infarction without residual deficits; Z92.3 Personal history of irradiation; Z79.899 Other long term (current) drug therapy; M25.552 Pain in left hip
CPT/HCPCS: 71260; 74177; 85520; 99214; Q9967

== ENCOUNTER → 2022-02-07 10:04 | Outpatient (BNVA) | payer MEDICARE, SELFPAY | PROVIDERS: PCP Family Medicine; Visit Provider Nurse Practitioner Family | DX: I73.9 Peripheral vascular disease, unspecified (principal) | CPT/HCPCS: 36415; 80048; 99213; 99214 ==

== ENCOUNTER 2022-02-20 06:00 | Outpatient (RCR) | payer MEDICARE, SELFPAY | END 2022-02-20 23:59 | disposition home or self-care (01) | LOC: SPT 06:00 | PROVIDERS: PCP Family Medicine; Visit Provider Specialist | DX: M70.62 Trochanteric bursitis, left hip (principal); M53.3 Sacrococcygeal disorders, not elsewhere classified | CPT/HCPCS: 97110 ==

== ENCOUNTER 2022-03-13 12:39 | Oncology outpatient (recurring) (ONCR) | payer MEDICARE, SELFPAY ==
[2022-03-10 13:45] LABS: Basophils # 0.1 10^3/uL (0.0-0.1); Basophils % 0.9 %; Eosinophils # 0.3 10^3/uL (0.0-0.8); Hematocrit 49.2 % (42.0-52.0); Hemoglobin 16.7 g/dL (11.7-16.6); Lymphocytes # 1.2 10^3/uL (0.8-4.8); Lymphocytes % 22.6 %; Mean Corpuscular HGB Conc 33.9 g/dL (30.0-36.0); Mean Corpuscular Hemoglobin 31.5 pg (28.0-34.0); Mean Corpuscular Volume 92.7 fl (80-94); Mean Platelet Volume 9.2 fL (7.4-10.4); Monocytes # 0.6 10^3/uL (0.2-0.9); Neutrophils % 60.1 %; Nucleated Red Blood Cells % 0 %; Platelet Count 225 10^3/cmm (130-400); Red Blood Count 5.31 10^6/uL (4.1-5.3); Red Cell Distribution Width 14.2 % (12.1-15.1); White Blood Count 5.5 10^3/uL (4.0-10.0)
[2022-03-10 14:06] LABS: Alanine Aminotransferase 12 U/L (0-41); Albumin Level 3.9 g/dL (3.5-5.2); Alkaline Phosphatase 51 U/L (40-130); Aspartate Amino Transferase 15 U/L (0-40); Blood Urea Nitrogen 19 mg/dL (8-23); Calcium 9.5 mg/dL (8.5-10.5); Carbon Dioxide 29 mmol/L (22-29); Chloride 101 mmol/L (98-107); Globulin 3.2 g/dL (1.3-4.6); Glucose 143 mg/dL (65-115); Osmolality Calculated 291 mOsm/kg (285-295); Sodium 138 mmol/L (136-145); Total Bilirubin 1.2 mg/dL (0.15-1.2); Total Protein 7.1 g/dL (6.6-8.7)
[2022-03-10 14:09] LABS: Anion Gap 12.6 (5-19); Potassium 4.6 mmol/L (3.5-5.1)
[2022-03-16 14:18] LABS: Heparin XA Low Molecular 0.73 IU/mL
== END 2022-03-21 23:59 | disposition home or self-care (01) ==
PROVIDERS: PCP Family Medicine; Visit Provider Internal Medicine Medical Oncology
DX: I82.622 Acute embolism and thrombosis of deep veins of left upper extremity (principal)
CPT/HCPCS: 36415; 80053; 85025; 85520; 99214

== ENCOUNTER → 2022-03-26 15:00 | Outpatient (BNVA) | payer MEDICARE, SELFPAY | PROVIDERS: PCP Family Medicine; Visit Provider Internal Medicine Cardiovascular Disease | DX: I25.10 Atherosclerotic heart disease of native coronary artery without angina pectoris (principal); I73.9 Peripheral vascular disease, unspecified; I10 Essential (primary) hypertension; E78.2 Mixed hyperlipidemia; Z87.891 Personal history of nicotine dependence | CPT/HCPCS: 99214 ==

== ENCOUNTER → 2022-04-14 11:24 | Outpatient (BNVA) | payer MEDICARE, SELFPAY | PROVIDERS: PCP Family Medicine; Visit Provider Specialist | DX: S72.145D Nondisplaced intertrochanteric fracture of left femur, subsequent encounter for closed fracture with routine healing (principal); X58.XXXD Exposure to other specified factors, subsequent encounter | CPT/HCPCS: 73522; 99214 ==

== ENCOUNTER → 2022-04-18 10:07 | Outpatient (BNVA) | payer MEDICARE, SELFPAY | PROVIDERS: PCP Family Medicine; Visit Provider Otolaryngology | DX: B36.9 Superficial mycosis, unspecified (principal); H62.41 Otitis externa in other diseases classified elsewhere, right ear; H61.23 Impacted cerumen, bilateral | CPT/HCPCS: 69210; 99213 ==

== ENCOUNTER 2022-05-01 15:53 | Outpatient (CLI) | payer MEDICARE, SELFPAY ==
--- NOTE | 2022-05-01 16:30 | CT_ITS ---
WS: [id number] CT LEFT HIP, NONCONTRAST. HISTORY: History of bone cancer with LEFT hip surgery. Technique: All CT scans at [facility] use at least one of these dose optimization techniques: automated exposure control; mA and/or kV adjustment per patient size (includes targeted exams where dose is matched to clinical indication); or iterative reconstruction. DLP: 952.08 mGy.cm COMPARISON: 02/05/2022, 11/28/2021 and radiographs 04/14/2022 Patient has known metastatic bone disease. Prior bone scan from 02/18/2021 was positive involving the LEFT hip. Gamma nail and short intramedullary marco a has been placed across the femoral neck and intertrochanteric . Lucency and destruction of the trabecular pattern through the femoral neck. Loss of the normal jennifer ex along the superior femoral neck and lucency surrounding the gamma nail. There are small trabecular fractures but these were reported on prior radiographs. The intramedullary marco a is intact. No fractur e along the distal tip of the marco a. Extensive atherosclerotic changes in the femoral artery. CT/CT hip LT wo con* [id number] IMPRESSION: 1. Status post gamma nail and short intramedullary marco a placement across metast atic bone lesion at the femoral neck. 2. Extensive lucency along the femoral neck surrounding the gamma nail with pa thological fractures. As compared to the prior CT of 11/28/2021 there has been a mild progression in the lytic changes and bone destruction with more involvemen t of the cortex.
== END 2022-05-01 15:54 | disposition home or self-care (01) ==
PROVIDERS: PCP Family Medicine; Visit Provider Specialist
DX: M25.552 Pain in left hip (principal); Z85.830 Personal history of malignant neoplasm of bone
CPT/HCPCS: 73700

== ENCOUNTER 2022-05-20 12:49 | Oncology outpatient (recurring) (ONCR) | payer MEDICARE, SELFPAY ==
[2022-05-20 13:06] LABS: Basophils % 0.7 %; Eosinophils # 0.3 10^3/uL (0.0-0.8); Eosinophils % 4.5 %; Hematocrit 49.3 % (42.0-52.0); Hemoglobin 16.5 g/dL (11.7-16.6); Lymphocytes # 1.1 10^3/uL (0.8-4.8); Mean Corpuscular HGB Conc 33.5 g/dL (30.0-36.0); Mean Corpuscular Hemoglobin 30.6 pg (28.0-34.0); Mean Corpuscular Volume 91.5 fl (80-94); Mean Platelet Volume 9.5 fL (7.4-10.4); Monocytes # 0.5 10^3/uL (0.2-0.9); Monocytes % 8.1 %; Neutrophils % 66.5 %; Nucleated Red Blood Cells % 0 %; Platelet Count 202 10^3/cmm (130-400); Red Blood Count 5.39 10^6/uL (4.1-5.3); Red Cell Distribution Width 13.4 % (12.1-15.1); White Blood Count 5.6 10^3/uL (4.0-10.0)
[2022-05-20 13:23] LABS: Alanine Aminotransferase 15 U/L (0-41); Albumin Level 4.2 g/dL (3.5-5.2); Alkaline Phosphatase 49 U/L (40-130); Anion Gap 15.6 (5-19); Aspartate Amino Transferase 15 U/L (0-40); Blood Urea Nitrogen 19 mg/dL (8-23); Calcium 9.8 mg/dL (8.5-10.5); Carbon Dioxide 25 mmol/L (22-29); Chloride 96 mmol/L (98-107); Globulin 2.8 g/dL (1.3-4.6); Glucose 242 mg/dL (65-115); Osmolality Calculated 284 mOsm/kg (285-295); Potassium 4.6 mmol/L (3.5-5.1); Sodium 132 mmol/L (136-145)
== END 2022-05-21 23:59 | disposition home or self-care (01) ==
LOC: ONCMED 12:50
PROVIDERS: Nurse Practitioner Family; PCP Family Medicine; Visit Provider Internal Medicine Medical Oncology
DX: C34.11 Malignant neoplasm of upper lobe, right bronchus or lung; C79.51 Secondary malignant neoplasm of bone; C77.8 Secondary and unspecified malignant neoplasm of lymph nodes of multiple regions; G89.3 Neoplasm related pain (acute) (chronic); Z79.891 Long term (current) use of opiate analgesic; Z79.01 Long term (current) use of anticoagulants; Z86.718 Personal history of other venous thrombosis and embolism; Z79.899 Other long term (current) drug therapy
CPT/HCPCS: 80053; 85025; 99214

== ENCOUNTER → 2022-05-21 13:11 | Outpatient (BNVA) | payer MEDICARE, SELFPAY | PROVIDERS: PCP Family Medicine; Visit Provider Specialist | DX: M84.552A Pathological fracture in neoplastic disease, left femur, initial encounter for fracture (principal); X58.XXXA Exposure to other specified factors, initial encounter | CPT/HCPCS: 99215 ==

== ENCOUNTER 2022-06-02 12:09 | Outpatient (CLI) | payer MEDICARE, SELFPAY ==
--- NOTE | 2022-06-02 13:30 | CTR_ITS ---
PROCEDURE INFORMATION: Exam: CT Chest With Contrast; Diagnostic Exam date and time: 06/02/2022 2:14 PM Age: 81 years old Clinical indication: Prior radiation therapy - hip/palliative. Prior oncological treatment - immunotherapy with pembrolizumab. 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 Follow-up oncological assessment; Prior surgery; Surgery type: Lung, hip, appy, heart. Right upper lobectomy; Additional info: Surveillance, [id number]. Nonsmall cell cancer (grade 1-2/4 adenocarcinoma) involving the upper lobe of the right lung TECHNIQUE: Imaging protocol: Diagnostic computed tomography of the chest with contrast. Radiation optimization: All CT scans at this facility use at least one of these dose optimization techniques: automated exposure control; mA and/or kV adjustment per patient size (includes targeted exams where dose is matched to clinical indication); or iterative reconstruction. Contrast material: OMNIPAQUE 350; Contrast volume: 95 ml; Contrast route: INTRAVENOUS (IV); Other contrast: Oral, omnipaque 350, 20; COMPARISON: CT chest abd pel w con* 02/05/2022 2:05 PM RADIATION DOSE METRICS: Total DLP (mGy-cm): 1810.1 FINDINGS: Lungs: [id number] pulmonary emphysema. Minimal central peribronchial thickening similar to prior exam. Scattered linear scarring-atelectasis in the left lung base. No new consolidation or ground-glass opacity. Again seen is lateral left upper lobe nodular density measuring 4-5 mm, unchanged, series 6, image 22. Pleural spaces: Unremarkable. No pneumothorax. No pleural effusion. Heart: Normal heart size with coronary calcification. Mediastinal space: Mild distal esophageal wall thickening which may represent mild esophagitis, similar to prior exam. Lymph nodes: No enlarged lymph nodes. Vasculature: Unremarkable. No aortic aneurysm. Bones/joints: No acute findings. Soft tissues: No acute findings. PROCEDURE INFORMATION: Exam: CT Abdomen And Pelvis With Contrast Exam date and time: 06/02/2022 2:14 PM Age: 81 years old Clinical indication: Prior radiation therapy - hip/palliative. Prior oncological treatment - immunotherapy with pembrolizumab. 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 Follow-up oncological assessment; Prior surgery; Surgery type: Lung, hip, appy, heart. Right upper lobectomy; Additional info: Surveillance, [id number]. Nonsmall cell cancer (grade 1-2/4 adenocarcinoma) involving the upper lobe of the right lung TECHNIQUE: Imaging protocol: Computed tomography of the abdomen and pelvis with contrast. Radiation optimization: All CT scans at this facility use at least one of these dose optimization techniques: automated exposure control; mA and/or kV adjustment per patient size (includes targeted exams where dose is matched to clinical indication); or iterative reconstruction. Contrast material: OMNIPAQUE 350; Contrast volume: 95 ml; Contrast route: INTRAVENOUS (IV); Other contrast: Oral, omnipaque 350, 20; COMPARISON: CT chest abd pel w con* 02/05/2022 2:05 PM RADIATION DOSE METRICS: Total DLP (mGy-cm): 1810.1 FINDINGS: Diaphragm: Elevated right hemidiaphragm similar to previous exam. Liver: Liver normal in size without cirrhosis. Stable multiple well-defined hypodense hepatic lesions, likely cysts, measuring up to 1.6 cm in the posterior left lobe. No suspicious hepatic lesions otherwise. Gallbladder and bile ducts: Cholelithiasis. Pancreas: Normal. No ductal dilation. Spleen: Normal. No splenomegaly. Adrenal glands: Normal. No mass. Kidneys and ureters: No obstructing calculus. No hydronephrosis. Stomach and bowel: Colonic diverticulosis. Low-moderate colonic stool burden. Appendix: No evidence of appendicitis. Intraperitoneal space: Unremarkable. No free air. No significant fluid collection. Vasculature: Aortoiliac calcifications without aneurysm. Lymph nodes: No enlarged lymph nodes. Urinary bladder: Urinary bladder is suboptimally assessed due to incomplete distention however there is probable nonspecific anterior bladder wall thickening. This may be related to chronic hypertrophy and/or cystitis. Clinical correlation is needed. Neoplasm can not be excluded. Findings are somewhat more prominent than prior exam. Reproductive: Minimal prostate enlargement, unchanged. Seminal vesicles demonstrates stable contour with no obvious discrete mass. Bones/joints: Metallic surgical hardware in left proximal femur resulting in streak artifacts partially obscuring adjacent anatomy. Soft tissues: No acute findings. CT/CT chest abd pel w con* IMPRESSION: 1. Comparison CT 02/05/2022. 2. Stable tiny left upper lobe nodule measuring 4-5 mm. No acute findings or other signs of new metastatic disease. 3. Coronary calcification and other nonacute findings as above. 4. Esophageal findings as above. IMPRESSION: 1. Comparison CT 02/05/2022. 2. Nonspecific anterior bladder wall thickening. Please see discussion above. Follow up assessment should be considered. 3. No acute abdominopelvic findings or other obvious signs of new metastatic disease otherwise. 4. Other nonacute findings as described above.
[2022-06-02] MEDS: iohexol 350 mg/mL 500 mL Btl (per mL) PO (14:18)
[2022-06-02] MEDS: iohexol 350 mg/mL 500 mL Btl (per mL) IV (14:18)
== END 2022-06-02 12:10 | disposition home or self-care (01) ==
LOC: RAD 12:10
PROVIDERS: PCP Family Medicine; Visit Provider Internal Medicine Medical Oncology
DX: C34.11 Malignant neoplasm of upper lobe, right bronchus or lung (principal)
CPT/HCPCS: 71260; 74177; Q9967

== ENCOUNTER 2022-06-03 07:15 | Outpatient (CLI) | payer MEDICARE, SELFPAY | END 2022-06-03 07:16 | disposition home or self-care (01) | LOC: RT 06-30 07:17 | PROVIDERS: PCP Family Medicine; Visit Provider Specialist | DX: Z13.6 Encounter for screening for cardiovascular disorders (principal); I21.9 Acute myocardial infarction, unspecified | CPT/HCPCS: 93005 ==

== ENCOUNTER → 2022-06-04 14:03 | Outpatient (BNVA) | payer MEDICARE, SELFPAY | PROVIDERS: PCP Family Medicine; Visit Provider Specialist | DX: M84.552A Pathological fracture in neoplastic disease, left femur, initial encounter for fracture (principal); C34.90 Malignant neoplasm of unspecified part of unspecified bronchus or lung | CPT/HCPCS: 99215 ==

== ENCOUNTER 2022-06-10 15:29 | Inpatient (IN) | payer MEDICARE, SELFPAY ==
[2022-06-03 09:57] VITALS: BMI 27.4
--- NOTE | 2022-06-03 10:27 | ECG_ITS ---
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 Measurements Intervals [place] Rate: 66 P: 65 [place]: 189 QRS: 77 QRSD: 116 T: 47 QT: 371 QTc: 390 Interpretive Statements SINUS RHYTHM LOW QRS VOLTAGE IN PRECORDIAL LEADS [QRS DEFLECTION < 1.0 mV IN CHEST LEADS] POSSIBLE ANTERIOR MYOCARDIAL INFARCTION , OF INDETERMINATE AGE [30 ms Q WAVE IN V3/V4, OR R < 0.2 mV IN V4] Diffuse nonspecific T wave changes Poor R wave progression Compared to ECG 09/08/2020 10:22:38 Low QRS voltage now present Myocardial infarct finding now present Sinus arrhythmia no longer present T-wave abnormality no longer present Electronically Signed On 06-04-2022 18:16:10 APARTMENT LEASING AGENT by Gabriel Merchant M.D. [id number]
[2022-06-03 10:29] LABS: Basophils # 0.1 10^3/uL (0.0-0.1); Basophils % 0.8 %; Eosinophils # 0.3 10^3/uL (0.0-0.8); Eosinophils % 4.4 %; Hematocrit 48.6 % (42.0-52.0); Hemoglobin 16.5 g/dL (11.7-16.6); Lymphocytes # 1.1 10^3/uL (0.8-4.8); Lymphocytes % 19.2 %; Mean Corpuscular Hemoglobin 30.5 pg (28.0-34.0); Mean Corpuscular Volume 89.8 fl (80-94); Mean Platelet Volume 9.3 fL (7.4-10.4); Monocytes # 0.6 10^3/uL (0.2-0.9); Monocytes % 10.1 %; Neutrophils # 3.86 10^3/uL (1.8-7.7); Neutrophils % 65.2 %; Nucleated Red Blood Cells % 0 %; Platelet Count 209 10^3/cmm (130-400); Red Blood Count 5.41 10^6/uL (4.1-5.3); Red Cell Distribution Width 13.5 % (12.1-15.1); White Blood Count 5.9 10^3/uL (4.0-10.0)
--- NOTE | 2022-06-03 10:40 | ANES.PREANE2 ---
Pre-Anesthetic Assessment Height/Weight: Height 1.68 m Weight 77.111 kg Preop Diagnosis: Critical limb ischemia of left lower extremity Operation Date: 06/10/22 07:00 Proposed Procedures p left hip Rigo Arthroplasty with possible conversion to total hip replacement.?[id number] M84.552A,M25.552,M16.9(Left) - Fiona Chin MD s Total Hip Arthroplasty(Left) - Fiona Chin MD Familial anesthetic complications: None Social No alcohol and No tobacco Exam alert, oriented x 3, clear to auscultation bilaterally and regular rate & rhythm Airway Mallampati: Class III Dentition: other (no teeth) Pulmonary Lung cancer CV/HEM Coronary Artery Disease (CABG), Deep Vein Thrombosis, Hypertension and Peripheral Vascular Disease Conclusions ? Totally occluded SFA ? s/p successful revascularization ? with balloon angioplasty, orbital arthrectomy and stent placement.. ? Left Mid-longitudinal Superficial Femoral Artery was treated with three stents. Recommendations ? Patient will need anticoagulation and Plavix. ? Aggressive risk factor control. ? Outpatient cardiology follow-up in 4 weeks. Neuropsych Cerebrovascular Accident Anesthetic Plan ASA status: 4 Anesthesia: Regional (specify below) Other: patient is on plavix for stent in leg, informed patient to reach out to dr rivers about whether he can stop plavix for surgery Risk of > 500 ml blood loss (7ml/kg in children): No Medications/Allergies Home Medications Medication Instructions Recorded Confirmed Last Taken Type cholecalciferol (vitamin D3) 50 2,000 unit PO DAILY@0800 06/28/19 06/03/22 06/03/22 History mcg (2,000 unit) tablet (Vitamin D3) omega 9-aww-hpr-fish oil 1,000 mg 2 cap PO BID 06/28/19 06/03/22 06/03/22 History (120 mg-180 mg) capsule (Fish Oil) vitamin B12 0.5 mg-folic acid 1 mg 1 tab PO DAILY@0800 06/28/19 06/03/22 06/03/22 History tablet cetirizine 10 mg tablet 5 mg PO DAILY PRN Allergy Symptoms 09/08/20 06/03/22 06/03/22 History ofloxacin 0.3 % eye drops 2 drp otic (ear) BID 12 months #10 06/03/21 06/03/22 Unknown Rx mL ezetimibe 10 mg tablet (Zetia) 10 mg PO DAILY #90 tabs 02/07/22 06/03/22 06/03/22 Rx enoxaparin 80 mg/0.8 mL 80 mg (0.8 mL) SUBCUT Q12H #8 mL 02/20/22 06/03/22 Unknown Rx subcutaneous syringe (Lovenox) tamsulosin 0.4 mg capsule (Flomax) 0.4 mg PO DAILY #90 caps 03/04/22 06/03/22 06/03/22 Rx gabapentin 300 mg capsule 300 mg PO BEDTIME@1800 #90 caps 03/11/22 06/03/22 06/02/22 Rx lovastatin 40 mg tablet 40 mg PO BID@0800,1800 #180 tabs 03/11/22 06/03/22 06/03/22 Rx fluticasone propionate 50 2 spray intranasal DAILY PRN Nasal 04/21/22 06/03/22 06/03/22 Rx mcg/actuation nasal Congestion #16 grams spray,suspension (Flonase Allergy Relief) allopurinol 300 mg tablet 300 mg PO DAILY@0800 #90 tabs 04/28/22 06/03/22 06/03/22 Rx clopidogrel 75 mg tablet (Plavix) 75 mg PO BID 05/20/22 06/03/22 06/03/22 History empagliflozin 25 mg tablet 25 mg PO DAILY@0800 05/20/22 06/03/22 06/03/22 History (Jardiance) hydrocodone 5 mg-acetaminophen 325 1 tab PO Q4H PRN pain 30 days #120 05/20/22 06/03/22 06/03/22 Rx mg tablet tabs semaglutide 0.25 mg or 0.5 mg (2 0.25 mg SUBCUT .weekly 05/20/22 06/03/22 05/31/22 History mg/1.5 mL) subcutaneous pen injector (Ozempic) carvedilol 25 mg tablet 25 mg PO BID 06/03/22 06/03/22 06/03/22 History Allergies Allergy/AdvReac Type Severity Reaction Status Date / Time prednisone Allergy Unknown rash Verified 05/22/22 10:40 naproxen [From Aleve] Allergy ALGY-Hives Verified 05/22/22 10:40 Penicillins Allergy ALGY-Hives Verified 05/22/22 10:40 [facility] Anesthesia Medical History Allergic rhinitis BPH (benign prostatic hyperplasia) Carotid artery disease Celiac artery stenosis COPD (chronic obstructive pulmonary disease) Coronary artery disease DJD (degenerative joint disease) GERD (gastroesophageal reflux disease) Gout Hereditary hemochromatosis Hyperlipidemia Hypertension Metastatic non-small cell lung cancer Obstructive sleep apnea Peripheral arterial disease with history of revascularization Peripheral neuropathy Thromboembolism 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, 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 Type 2 diabetes mellitus Surgical History H/O arterial bypass of lower limb (1999) right leg History of left hip hemiarthroplasty (03/17/19) History of lobectomy of lung (04/29/17) right upper lobe lobectomy with mediastinal lymph node biopsy History of PTCA History of quadruple bypass (1996) History of tonsillectomy and adenoidectomy Hx of appendectomy Hx of cataract extraction Family History Mother Diabetes Chronic kidney disease (CKD) Brother CAD (coronary artery disease) Cancer Diabetes Son CAD (coronary artery disease) Denies family history of Clotting disorder Dementia Suicide Anesthesia complication Bleeding disorder Lung disease Stroke Social History Smoking and tobacco status: never smoked Alcohol intake: never Lives independently: Yes Household members: spouse History of recent travel: No Special jazlyn needs: No Data Anesthesia 06/03/22 10:18 06/03/22 10:18 Short CBC 06/03/22 Range/Units 10:18 WBC 5.9 (4.0-10.0) 10^3/uL Hgb 16.5 (11.7-16.6) g/dL Hct 48.6 (42.0-52.0) % MCV 89.8 (80-94) fl Plt Count 209 (130-400) 10^3/cmm Neut % (Auto) 65.2 % Neut # (Auto) 3.86 (1.8-7.7) 10^3/uL Cardiac Studies: Echocardiogram Ultrasound 09/17/19 Transesophageal Echocardiogram 07/06/19
[2022-06-03 10:48] LABS: Anion Gap 13.5 (5-19); Blood Urea Nitrogen 17 mg/dL (8-23); Calcium 9.9 mg/dL (8.5-10.5); Carbon Dioxide 28 mmol/L (22-29); Chloride 102 mmol/L (98-107); Glucose 174 mg/dL (65-115); Osmolality Calculated 294 mOsm/kg (285-295); Potassium 4.5 mmol/L (3.5-5.1); Sodium 139 mmol/L (136-145)
--- NOTE | 2022-06-03 11:38 | SUR.PREOP ---
instructed patient to check with dr mccartney at his appointment scheduled tomorrow on when to stop taking his blood thinner
[2022-06-10] VITALS (22 sets, daily range): BP systolic 91–173; BP diastolic 49–81; PULSE 59–82; RESP 13–20; TEMP 36.2–36.9; O2SAT 91–98; BMI 29.0
[2022-06-10 09:29] LABS: Add Urine Microscopic? NO; Charge for UA Resulting for Rev
[2022-06-10 09:44] LABS: Glucose Point of Care 197 mg/dL (70-110)
[2022-06-10] MEDS: sodium chloride 0.9% 1,000 ML 30 ML IV (09:44)
[2022-06-10] MEDS: acetaminophen 1,000 MG/100 ML PIGGYBACK 400 MG IV ×2 (09:45→17:44)
[2022-06-10 09:46] LABS: Bilirubin Urine Neg (Negative); Blood Urine Neg (Negative); Glucose Urine UA 4+ (Normal); Ketones Urine Negative (Negative); Leukocyte Esterase Urine Negative (Negative); Nitrate Urine Negative (Negative); Protein Urine Neg (Negative); Specific Gravity, Urine 1.015 (1.005-1.030); Urine Appearance Clear (CLEAR); Urine Color Yellow (Yellow); Urobilinogen Urine Norm (Negative); pH Urine 5 (5-7)
--- NOTE | 2022-06-10 09:50 | P.HPUD_ITS ---
Surgery/Procedure H&P Update DATE OF PROCEDURE: June 10, 2022 DATE H&P PERFORMED: 06/04/22 H&P UPDATE INFORMATION: I have reviewed H&P completed within last 30 days, I have examined patient prior to procedure, No changes to prior documentation and H&P is in 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
--- NOTE | 2022-06-10 10:14 | P.ANESUD_ITS ---
Pre-Anesthetic Update Pre-Anesthetic Assessment: Date of Surgery/Procedure: 06/10/22 Preop Cally gnosis: Pathologic fracture left intertrochanteric femur Proposed Procedure: Operation Date: 06/10/22 10:05 Proposed Procedures p left hip Rigo Arthroplasty with possible conversion to total hip replacement.?[id number] 15103 M84.552A,M25.552,M16.9(Left) - Fiona Chin MD s Total Hip Arthroplasty(Left) - Fiona Chin MD Any changes to Pre-Anesthetic Assessment?: No Last Intake: Intake Last Liquid Date 06/09/22 Last Liquid Time 21:00 Last Solid Date 06/09/22 Last Solid Time 20:00 Labs Last 48hrs: Urine 06/10/22 Range/Units 09:14 Urine Color Yellow (Yellow) Urine Appearance Clear (CLEAR) Urine pH 5 (5-7) Ur Specific Gravit y 1.015 (1.005-1.030) Urine Protein Neg (Negative) Urine Glucose (UA) 4+ H (Normal) Urine Ketones Negative (Negative) Urine Nitrate Negative (Negative) Urine Bilirubin Neg (Negative) Ur Leukocyte Ritika ase Negative (Negative) Vitals: Temperature 97.2 F L 06/10/22 09:34 Temperature Source Temporal Artery S can 06/10/22 09:34 Pulse Rate 72 06/10/22 09:34 Respiratory Rate 18 06/10/22 09:34 Blood Pressure 134/66 06/10/22 09:34 Blood Pressure Magdalena n 88 06/10/22 09:34 Pulse Oximetry 92 06/10/22 09:34 Oxygen Delivery Me thod 06/10/22 09:35 Exam: Pre-Anes Outpt Exam: alert, oriented x 3, clear to auscultation bilaterally and regular rate & rhythm Cardiac Studies: Echocardiogram Ultrasound 09/17/19 Transesophageal Echocardiogram 07/06/19
[2022-06-10] MEDS: clindamycin 600 MG/50 ML PREMIX 100 MG IV (10:57)
[2022-06-10] MEDS: tranexamic acid 1,000 mg/10mL SDV 1000 MG IV (11:53)
[2022-06-10] MEDS: vancomycin 1,000 MG SDV 1000 MG XX (11:53)
[2022-06-10] MEDS: vancomycin 1,000 MG SDV 1000 MG IRRIGATION (11:55)
--- NOTE | 2022-06-10 15:27 | XR_ITS ---
WS: [id number] Exam: XR pelvis 1-2V* [id number] Date/Time of Exam: 06/10/2022 3:39 PM Reason For Exam: S/P VIOLET Comparison 04/14/2022. A total hip arthroplasty is noted on the left. Postoperative changes in the adjacent soft tissues. Lerner perficial femoral artery stent noted on the left. XR/XR pelvis 1-2V* [id number] IMPRESSION: 1. Left total hip arthroplasty.
--- NOTE | 2022-06-10 15:37 | SUR.PHASEI ---
1508 PT TO PACU 5 PT AWAKE ALERT SPINAL ANESTHESIA AT T-10 LEVEL PT NOT ABLE TO MOVE TOES, MONITOR SR WITH NO ECTOPY NOTED IV TO RT WRIST #20 WITH 500ML UP AT KVO RATE PER GRAVITY, LT HIP DRESSING D/I FIRST ICE TO HIP DISTAL LT FOOT PINK WARM WITH STRONG REGULAR PULSE MARKED X 2 LT FOOT PUMP PT TALKATIVE AND SMILING, PT VERBALIZED NORMAL SENSATION TO TOUCH AT SPINAL LEVEL10. ID BRACELET TO LT WRIST , PT ID'D WITH 2 IDENTIFIERS.
--- NOTE | 2022-06-10 16:01 | P.OP_ITS ---
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 Procedure done: Left hip removal of gamma nail, excisional biopsy femoral head and neck, and revision left hip arthroplasty Implants: The Jose Zoroastrian[employer] Modular total hip system with the following components; a 155 mm x 16 mm distal diameter bahai modular femoral stem with a 23 mm x +10 calcar replacement, a size 50 mm universal head bipolar component with a 28 mm inner diameter and a 28 mm x +4 mm offset femoral head (V40) Specimens removed/disposition: Femoral head and neck sent to pathology for microscopic evaluation Surgeon: Fiona Chin Prevention Coordinator: [facility] operating room technicians Anesthesia: MAC (With spinal, ASA 4) Estimated blood loss (mL): 300 IV fluids (mL): 1,200 IV fluids: 250 ml of albumin Urine output (mL): 200 Complications: None Findings: Nonunion left femoral neck with likely infiltration with metastatic disease secondary to consistency of bone of the femoral neck. This was sent for pathology. Following surgical procedure, the hip was stable at 90 degrees of fl exion with 70 degrees of internal rotation and 20 degrees of adduction Condition: stable Disposition: PACU (Then to floor for postoperative rehabilitation and pain management. The patient will be followed by the medical service as well.) Brief History: This 82-year-old gentleman presented to my office with increasing pain in the left hip. In February 2019, the patient had a prophylactic nailing of the left hip for impending fracture secondary to metastatic disease. The patient's diagnosis is of metastatic lung cancer to this hip area. Most recently, he has had increasing pain, and his PET scan and CT were concerning for nonunion or new fracture to the area that had been previously prophylactically nail. After evaluation, the patient was felt to have metastatic disease to this area which was causing symptoms consistent with fracture causing him considerable discomfort. After discussion, we elected to proceed with removal of the gamma nail with plans for revision hip arthroplasty utilizing the Zoroastrianism Modular Jose hip system, and the decision was to be made at the time of surgery rather to include a bipolar femoral head or a fixed head with acetabular component. Risks and complications were discussed preoperatively, and consents were signed. Procedure: The patient was brought to the operating theater, and after undergoing adequate MAC with spinal anesthesia, ASA 4, she was transferred to the operating room table. The patient was placed in the full lateral position and held in place with the pegboard. Patient's left lower extremity was draped free and was subsequently prepped and further draped free. A surgical pause was performed prior to commencement of the surgical procedure. During the surgical pause, we confirmed the site and side of surgery as well as availability of equipment. Additionally, we confirmed preoperative surgical markings. X-rays are also reviewed during this time. Given the patient's metastatic history, 1 g of TXA was given, but no subsequent dosing was accomplished at the end of the case. Additionally, he was given Cleocin 600 mg preoperatively. Following the surgical pause, an incision was made centering over the greater trochanter continuing proximally and distally as necessary to allow access to the hip joint. Dissection continued though skin and soft tissue using scalpel. Hemostasis was obtained using electrocautery. Tensor fascia martha was identified and incised longitudinally. Sciatic nerve was identified and protected throughout the surgical procedure. A Charnley U retractor was placed with care being taken to protect the sciatic nerve during placement. The area was then evaluated for removal of the gamma nail. The lateral femur was palpated, but the nail was not prominent. We also evaluated the greater trochanter and it was difficult to determine the position of the gamma nail. The hip was internally rotated. Piriformis muscle was then identified, tagged, and subsequently incised from the posterior aspect of the hip joint. The remaining short external rotators were also incised. These were then elevated off the capsule and the capsule was entered in a T-type fashion. Each side of the capsule was then tagged. At this point, the hip was dislocated and a guide was used for appropriate femoral head resection. Because of the lag screw into the femoral head, we were only able to incise a portion of the femoral neck utilizing a saw. The neck was noted to have evidence of metastatic disease and deficiency in the neck possibly nonunion or removal of bone secondary to the metastatic lesion. The head was then sectioned so that it could be removed from the lag screw. We were able to remove the head and it measured between a 50 and a 52 once it was put back together for measurement. The femoral head was to be sent to pathology. Further evaluation was then accomplished so that we could remove the gamma nail. With some difficulty, we were able to determine position of the proximal aspect of the gamma nail. The lag screw was removed from the gamma nail proximally. We then directed attention to removal of the lag screw. A K wire was passed from the femoral head side of the lag screw out the side of the patient's femur to help determine appropriate position for hardware removal. The muscle fascia was cut longitudinally, and the lag screw order management specialist/extractor was placed onto the lag screw. With attempted removal, this just spun in place. We therefore redirected attention to the femoral aspect of the lag screw and a bone tamp was used along with a mallet to backed the screw out through the smooth shank portion. Once this was outside of the bone, we were better able to place the order management specialist extractor and at that point, we were able to place traction on the screw for removal. We were then able to remove the lag screw. Following this attention was directed to the proximal aspect of the femur. Although the proximal aspect of the gamma nail had been isolated, it was difficult to screw the extraction device into position. Once the extraction device was locked in position nicely, it was very difficult to remove the nail. This required the nail to be pounded out and subsequently pounded in again and then pounded out as well. Once the nail was removed attention was directed to placement of the hip stem. The proximal femur was brought into an appropriate position following this femoral neck osteotomy. The femur was brought out of the wound and was in appropriate position for placement of the prosthetic component and for preparatory reaming. Pathology was sent including the femoral head and portions of the neck. Following that, a canal finder was utilized followed by the lateralizing reamer. Following that, sequential conical drilling was accomplished for placement of the conical femoral stem of the hip prosthesis. We are able to ream to a size 16 mm. At that point the femoral component was obtained and was impacted into position. Appropriate jig was then placed over this to drill for the calcar replacing portion of the hip stem. We were able to ream to a size 23 mm. Once we had prepared the femur and the proximal calcar area, a trial was accomplished with initially a 23 mm with +0 height followed by a 23 mm with a +10 height. The bipolar femoral head chosen was a 50 mm. This gave excellent fit and good suction with trial prior to placement of the femoral stem. Also, initial reduction was accomplished with a +4 mm head on the +10 mm calcar replacing portion of the prosthesis. The trial reduction was accomplished, and the hip was stable with the final construct of the +10 calcar replacing origin of the stem and a +4 mm femoral head. I was able to flex the hip to 90 degrees and internally rotate 60 degrees with 30 degrees of adduction. The hip was stable to toe hang and also to external rotation. Therefore, these were the appropriate sizes and it was felt that we did not over lengthen the hip. The calcar replacing portion of the stem was placed onto the more distal conical stem. This was impacted and subsequently the screw was tightened and torqued to 180. Appropriate rotation was assured during placement of the calcar portion of the stem. Onto this we placed the +4 mm femoral head inside of the universal bipolar head replacement at a size 50 mm. The hip was copiously irrigated and hip was reduced. It was once again placed through range of motion and stability's remained as noted above. The femoral head was impacted and subsequently pulled upon to assure that it did not dissociate. As noted, the hip was reduced and placed through the range of motion. It was then irrigated with Betadine containing normal saline. This was suctioned out and washed out with normal saline. This was suctioned dry again and closure was accomplished with 0 Vicryl in the capsular tissues followed by reattachment of the piriformis with 0 Vicryl. Additionally, the tensor was closed with 0 Vicryl in an interrupted fashion. Subcutaneous tissues were closed with a combination of 0 Vicryl and 2-0 Monocryl. Skin was closed with 3-0 Monocryl. This was followed by Orlin Yates and an OpSite. Patient was placed in an abduction pillow. The patient was returned the Recovery Room in satisfactory condition. There were no complications. The patient will be discharged to the floor for postoperative rehabilitation and pain management. Related Problem List Diagnoses (1) 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: (2) Painful orthopaedic hardware:
--- NOTE | 2022-06-10 16:10 | SUR.PHASEI ---
DR HOYOS TALKING WITH FAMILY, FAMILY UPDATED EARLIER, X RAY DONE PT STATES NORMAL SENSATION TO T-11 AREA, PT ABLE TO MOVE LT TOES , DISTAL FOOT AND LT HIP DRESSING D/I AND UNCHANGED MONITOR SR WITH NO ECTOPY, REPORT CALLED TO JAMES GILBERT.
--- NOTE | 2022-06-10 16:32 | SUR.PHASEI ---
PT TO FLOOR PER BED AT BEDSIDE PT [place] BUT VERY TALKATIVE LAUGHING WITH NURSE JAMES RN HANDOFF AT BEDSIDE, BLANCO PATENT OF SMALL AMT CLEAR YELLOW URINE TO TUBING AND BAG, VSS LT HIPS DRESSING AND DISTAL FOOT ASSESSMENT UNCHANGED.
--- NOTE | 2022-06-10 16:39 | ANE.PACU2 ---
Inpatient post-anesthesia follow up: Airway intact: Yes Vital signs: Temperature 97.6 F Pulse Rate 60 Respiratory Rate 14 Blood Pressure 115/73 Pulse Oximetry 97 Oxygen Delivery Me thod Nasal Cannula Oxygen Flow Rate 2 Fraction of Inspir ed Oxygen Hydration adequate: Yes Nausea and vomiting: No Pain level: 3 Mental status: Baseline
--- NOTE | 2022-06-10 17:10 | P.CONIM_ITS ---
Providers/Reason For Consult Consulting Physician/Specialty*: Dr. 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 His vitals have been reviewed. Review of Systems General: Reports: 10 or more systems reviewed and unremarkable except in HPI and below Const: Denies: fever(s), chills, body aches, change in appetite or diaphoresis Card: Denies: palpitations, edema, swelling of feet/ankles, dyspnea on exertion, orthopnea or leg pain with exertion Resp: Denies: dyspnea, productive cough, wheezing or pain on inspiration GI: Denies: abdominal pain, nausea, vomiting, diarrhea or constipation : Denies: flank pain or difficulty urinating Musc: Reports: extremity pain; Denies: back pain or extremity swelling Neuro: Denies: headache(s) Medications/Allergies Home Medications Medication Instructions Recorded Confirmed Last Taken Type cholecalciferol (vitamin D3) 50 2,000 unit PO DAILY@0800 06/28/19 06/10/22 06/09/22 History mcg (2,000 unit) tablet (Vitamin D3) omega 4-qoi-uaw-fish oil 1,000 mg 2 cap PO BID 06/28/19 06/10/22 06/03/22 History (120 mg-180 mg) capsule (Fish Oil) vitamin B12 0.5 mg-folic acid 1 mg 1 tab PO DAILY@0800 06/28/19 06/10/22 06/09/22 History tablet cetirizine 10 mg tablet 5 mg PO DAILY PRN Allergy Symptoms 09/08/20 06/10/22 09/07/20 History ofloxacin 0.3 % eye drops 2 drp otic (ear) BID 12 months #10 06/03/21 06/10/22 Unknown Rx mL ezetimibe 10 mg tablet (Zetia) 10 mg PO DAILY #90 tabs 02/07/22 06/10/22 06/09/22 Rx enoxaparin 80 mg/0.8 mL 80 mg (0.8 mL) SUBCUT Q12H #8 mL 02/20/22 06/10/22 06/08/22 Rx subcutaneous syringe (Lovenox) tamsulosin 0.4 mg capsule (Flomax) 0.4 mg PO DAILY #90 caps 03/04/22 06/09/22 06/10/22 Rx gabapentin 300 mg capsule 300 mg PO BEDTIME@1800 #90 caps 03/11/22 06/10/22 06/09/22 Rx lovastatin 40 mg tablet 40 mg PO BID@0800,1800 #180 tabs 03/11/22 06/10/22 06/09/22 Rx fluticasone propionate 50 2 spray intranasal DAILY PRN Nasal 04/21/22 06/10/22 06/09/22 Rx mcg/actuation nasal Congestion #16 grams spray,suspension (Flonase Allergy Relief) allopurinol 300 mg tablet 300 mg PO DAILY@0800 #90 tabs 04/28/22 06/10/22 06/09/22 Rx clopidogrel 75 mg tablet (Plavix) 75 mg PO BID 05/20/22 06/09/22 06/03/22 History empagliflozin 25 mg tablet 25 mg PO DAILY@0800 05/20/22 06/10/22 06/09/22 History (Jardiance) hydrocodone 5 mg-acetaminophen 325 1 tab PO Q4H PRN pain 30 days #120 05/20/22 06/10/22 06/08/22 Rx mg tablet tabs semaglutide 0.25 mg or 0.5 mg (2 0.25 mg SUBCUT .weekly 05/20/22 06/10/22 05/31/22 History mg/1.5 mL) subcutaneous pen injector (Ozempic) carvedilol 25 mg tablet 25 mg PO BID 06/03/22 06/09/22 06/10/22 History Allergies Allergy/AdvReac Type Severity Reaction Status Date / Time prednisone Allergy Unknown rash Verified 06/09/22 11:20 naproxen [From Aleve] Allergy ALGY-Hives Verified 06/09/22 11:20 Penicillins Allergy ALGY-Hives Verified 06/09/22 11:20 PFSH Acute PFSH: Medical History (Updated 06/10/22 @ 17:16 by Leno Sanchez MD) Allergic rhinitis BPH (benign prostatic hyperplasia) Carotid artery disease Celiac artery stenosis COPD (chronic obstructive pulmonary disease) Coronary artery disease DJD (degenerative joint disease) GERD (gastroesophageal reflux disease) Gout Hereditary hemochromatosis Hyperlipidemia Hypertension Metastatic non-small cell lung cancer Obstructive sleep apnea Peripheral arterial disease with history of revascularization Peripheral neuropathy Thromboembolism 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, 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 Type 2 diabetes mellitus Surgical History H/O arterial bypass of lower limb (1999) right leg History of left hip hemiarthroplasty (03/17/19) History of lobectomy of lung (04/29/17) right upper lobe lobectomy with mediastinal lymph node biopsy History of PTCA History of quadruple bypass (1996) History of tonsillectomy and adenoidectomy Hx of appendectomy Hx of cataract extraction Family History Mother Diabetes Chronic kidney disease (CKD) Brother CAD (coronary artery disease) Cancer Diabetes Son CAD (coronary artery disease) Denies family history of Clotting disorder Dementia Suicide Anesthesia complication Bleeding disorder Lung disease Stroke Social History Smoking and tobacco status: never smoked Alcohol intake: never Lives independently: Yes Household members: spouse History of recent travel: No Special jazlyn needs: No Vitals/I&O/Wt Last Vital Signs Temp 97.6 F 06/10/22 16:05 Pulse 60 06/10/22 16:05 Resp 14 06/10/22 16:05 BP 115/73 06/10/22 16:05 Pulse Ox 97 06/10/22 16:05 O2 Del Method 06/10/22 16:05 O2 Flow Rate 2 06/10/22 16:05 06/10/22 06/10/22 06/10/22 06:59 14:59 22:59 Intake Total 1150 / 1150 400 / 1550 Output Total 700 / 700 Balance 1150 / 1150 -300 / 850 Physical Exam HENMT: COMMON NORMALS: normocephalic and atraumatic HEAD & SCALP: normocephalic and atraumatic Resp: COMMON NORMALS: clear to auscultation bilaterally EFFORT & INS PECTION: Yes symmetric chest movement AUSCULTATION: clear to auscultation bilaterally Cardio: COMMON NORMALS: regular rate, regular rhythm, S1 normal heart sound present, S2 normal heart sound present, No gallops present (Cardio), No murmurs present (Cardio), No rub (Cardio) and Peripheral pulses 2+ throughout RATE: regular rate RHYTHM: regular rhythm HEART SOUNDS: S1 normal heart sound present and S2 normal heart sound present PERIPHERAL PULSES: Peripheral pulses 2+ throughout GI: COMMON NORMALS: Normal to inspection, nondistended, normoactive bowel sounds present, Soft to palpation, non-tender, No hepatosplenomegaly present and no masses AUSCULTATION: Yes normoactive bowel sounds PALPATION: Yes Soft to palpation and Yes No hepatosplenomegaly present RECTAL EXAM: Yes deferred Extremity: COMMON NORMALS: no clubbing, cyanosis or edema and no pedal edema Urinary Catheter Management: Meyer: Cath Placed During This Visit: yes Urinary Catheter Date of Insertion: 06/10/22 Urinary Catheter Time of Insertion: 11:00 Data 06/03/22 10:18 06/03/22 10:18 A&P Assessment and plan (1) Painful orthopaedic hardware: (2) Type 2 diabetes mellitus: (3) 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: Qualifiers: Encounter type: subsequent encounter Fracture healing: with delayed healing Qualified Code(s): M84.552G - Pathological fracture in neoplastic disease, left femur, subsequent encounter for fracture with delayed healing (4) Arteriosclerotic heart disease (ASHD): (5) PAD (peripheral artery disease): (6) COPD (chronic obstructive pulmonary disease): (7) Hypertension: Qualifiers: Hypertension type: essential hypertension Qualified Code(s): I10 - Essential (primary) hypertension (8) Metastatic non-small cell lung cancer: Plan 82 year old male with past medical history of metastatic non-small cell lung cancer, Recurrent DVT, on Lovenox for anticoagulation, peripheral arterial disease with recent revascularization, hypertension, coronary artery disease s/p PTCA , s/p CABG , diabetes was admitted under orthopedic service for the management of 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 Continue Tylenol for pain control CODE STATUS: Full code Consult Attestations Medical Necessity Statement: Per primary team Coding Level of Care Code Acute Medical Claims Analyst for [facility] Fwd Exam Detailed Diagnoses Painful orthopaedic hardware T84.84XA Type 2 diabetes mellitus E11.9 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 M84.552G Encounter type: subsequent encounter Fracture healing: with delayed healing Arteriosclerotic heart disease (ASHD) I25.10 PAD (peripheral artery disease) I73.9 COPD (chronic obstructive pulmonary disease) J44.9 Hypertension I10 Hypertension type: essential hypertension Metastatic non-small cell lung cancer C34.90
[2022-06-10 17:34] LABS: Glucose Point of Care 95 mg/dL (70-110)
[2022-06-10] MEDS: chlorhexidine gluconate 0.12% Btl 473 mL 30 ML MUCOUS MEM ×2 (17:40→20:31)
[2022-06-10] MEDS: calcium carbonate 500 mg Chew Tablet 1000 MG PO (17:41)
[2022-06-10] MEDS: iron polysaccharide complex 150 mg Capsule PO (17:41)
[2022-06-10] MEDS: sennosides-docusate Tablet 2 TAB PO (17:41)
[2022-06-10] MEDS: clopidogrel 75 mg Tablet PO (17:41)
[2022-06-10] MEDS: carvedilol 25 mg Tablet PO (17:41)
[2022-06-10] MEDS: mupirocin oint 22 gm 1 APPLIC NASAL (17:42)
[2022-06-10] MEDS: enoxaparin 80 mg/0.8 mL Syringe SUBCUT (17:43)
[2022-06-10] MEDS: gabapentin 300 mg Capsule PO (18:01)
[2022-06-10] MEDS: atorvastatin 40 mg Tablet 20 MG PO (18:02)
[2022-06-10] MEDS: ofloxacin 0.3% Op Soln 5 mL Btl 2 DROP EAR-BOTH (20:30)
[2022-06-10] MEDS: HYDROcodone-acetaminophen 5-325 mg Tablet 1 TAB PO (20:30)
[2022-06-10] MEDS: clindamycin 900 MG/50 ML PREMIX 100 MG IV (20:31)
[2022-06-10 22:56] LABS: Glucose Point of Care 114 mg/dL (70-110)
[2022-06-10] MEDS: oxyCODONE 5 mg IR Tab/Cap PO (23:26)
--- NOTE | 2022-06-10 23:40 | PC.NURSE ---
Discussion took place with patient regarding pain management. Patient was educated to utilize the call light if patient needed pain medicine or anything else. Education took place on keeping affected leg and hip as straight as possible and not having any pillow under knee or hip, as well as preventing flexion. Anti-embolic stockings were applied on the right, non-affected leg, and foot pumps applied bilaterally. 720 ml was emptied from patient's Meyer catheter at this time, and patient was educated that Meyer would be removed in the morning. Patient verbalized understanding to all of the topics stated above. Patient was left resting in bed, locked in lowest position with two side rails, and call light within reach. Patient stated no further needs at this time.
[2022-06-11] MEDS: ondansetron 2 mg/ML SDV 2 mL 4 MG IVP ×2 (00:56→01:18)
--- NOTE | 2022-06-11 01:11 | PC.NURSE ---
Patient stated that he was feeling hungry and asked for some more solid food. Order placed to advance diet from clears to cardiac per standing protocol. When this nurse returned with crackers and Ensure, patient stated that he was feeling nauseous. Food held from patient and patient given a bucket if vomiting were to occur. Zofran obtained and administered to patient.
[2022-06-11] MEDS: acetaminophen 1,000 MG/100 ML PIGGYBACK 400 MG IV (02:02)
[2022-06-11 03:15] VITALS: BP 130/70; PULSE 74; RESP 17; TEMP 36.9; O2SAT 90
[2022-06-11 04:25] LABS: Basophils % 0.3 %; Eosinophils % 0.1 %; Hematocrit 46.4 % (42.0-52.0); Hemoglobin 15.5 g/dL (11.7-16.6); Lymphocytes # 0.5 10^3/uL (0.8-4.8); Lymphocytes % 6.2 %; Mean Corpuscular HGB Conc 33.4 g/dL (30.0-36.0); Mean Corpuscular Volume 89.7 fl (80-94); Mean Platelet Volume 9.4 fL (7.4-10.4); Monocytes # 0.6 10^3/uL (0.2-0.9); Monocytes % 6.9 %; Neutrophils # 6.83 10^3/uL (1.8-7.7); Neutrophils % 86.1 %; Nucleated Red Blood Cells % 0 %; Platelet Count 186 10^3/cmm (130-400); Red Blood Count 5.17 10^6/uL (4.1-5.3); Red Cell Distribution Width 13.6 % (12.1-15.1); White Blood Count 7.9 10^3/uL (4.0-10.0)
[2022-06-11 04:44] LABS: Anion Gap 22.4 (5-19); Blood Urea Nitrogen 20 mg/dL (8-23); Calcium 9.3 mg/dL (8.5-10.5); Carbon Dioxide 20 mmol/L (22-29); Chloride 99 mmol/L (98-107); Glucose 140 mg/dL (65-115); Osmolality Calculated 289 mOsm/kg (285-295); Potassium 4.4 mmol/L (3.5-5.1); Sodium 137 mmol/L (136-145)
[2022-06-11] MEDS: clindamycin 900 MG/50 ML PREMIX 100 MG IV (04:44)
[2022-06-11] MEDS: enoxaparin 80 mg/0.8 mL Syringe SUBCUT ×2 (05:22→18:09)
--- NOTE | 2022-06-11 05:31 | PC.NURSE ---
Patient's rojas catheter removed this morning. Patient tolerated well.
[2022-06-11 06:57] LABS: Glucose Point of Care 163 mg/dL (70-110)
[2022-06-11 08:00] VITALS: BP 145/62; PULSE 77; RESP 19; TEMP 36.6; O2SAT 91
[2022-06-11] MEDS: insulin lispro 100 unit/1 mL SUBCUT (08:42)
[2022-06-11] MEDS: iron polysaccharide complex 150 mg Capsule PO ×2 (08:42→18:08)
[2022-06-11] MEDS: tamsulosin 0.4 mg Capsule PO (08:43)
[2022-06-11] MEDS: carvedilol 25 mg Tablet PO ×2 (08:43→18:08)
[2022-06-11] MEDS: cholecalciferol (vitamin D3) 1,000 unit Tablet 1000 UNIT PO (08:43)
[2022-06-11] MEDS: clopidogrel 75 mg Tablet PO ×2 (08:43→18:08)
[2022-06-11] MEDS: calcium carbonate 500 mg Chew Tablet 1000 MG PO ×2 (08:43→18:07)
[2022-06-11] MEDS: sennosides-docusate Tablet 2 TAB PO ×2 (08:43→18:09)
[2022-06-11] MEDS: multivitamin therapeutic Tablet 1 TAB PO (08:43)
[2022-06-11] MEDS: allopurinol 300 mg Tablet PO (08:43)
[2022-06-11] MEDS: aspirin 325 mg EC Tablet PO (08:44)
[2022-06-11 08:46] VITALS: PULSE 70; RESP 16; O2SAT 93
[2022-06-11] MEDS: HYDROcodone-acetaminophen 5-325 mg Tablet 1 TAB PO (08:47)
[2022-06-11] MEDS: mupirocin oint 22 gm 1 APPLIC NASAL ×2 (08:48→18:14)
[2022-06-11] MEDS: chlorhexidine gluconate 0.12% Btl 473 mL 30 ML MUCOUS MEM ×3 (08:48→20:30)
[2022-06-11] MEDS: ezetimibe 10 mg Tablet PO (08:49)
[2022-06-11] MEDS: ofloxacin 0.3% Op Soln 5 mL Btl 2 DROP EAR-BOTH ×2 (08:50→18:14)
[2022-06-11] MEDS: atorvastatin 40 mg Tablet 20 MG PO ×2 (08:52→18:11)
[2022-06-11 11:36] LABS: Glucose Point of Care 144 mg/dL (70-110)
[2022-06-11 12:20] VITALS: BP 128/65; PULSE 66; RESP 18; TEMP 36.6; O2SAT 92
--- NOTE | 2022-06-11 15:33 | PM.PN ---
Subjective Subjective: Patient was seen and examined this morning, was seen sitting in the chair pain is better controlled, Unfortunately he was not able to sleep last night. Medications: Medication Review Details: Generic Name Dose Route Start Last Admin Trade Name Freq PRN Reason Stop Dose Admin Hydrocodone Bitart /Acetaminophen 1 tab 06/10/22 16:42 06/11/22 08:47 Hydrocodone-Acet aminophen 5-325 Mg Tablet PO 1 tab Q4H PRN Administration pain Allopurinol 300 mg 06/11/22 08:00 06/11/22 08:43 Allopurinol 300 Mg Tablet PO 300 mg DAILY@0800 ASHLEY Administration Aspirin 325 mg 06/11/22 09:00 06/11/22 08:44 Aspirin 325 Mg E c Tablet PO 325 mg DAILY ASHLEY Administration Atorvastatin Calci um 20 mg 06/10/22 18:00 06/11/22 08:52 Atorvastatin 40 Mg Tablet PO 20 mg BID@0800,1800 ASHLEY Administration Calcium Carbonate 1,000 mg 06/10/22 18:00 06/11/22 08:43 Calcium Carbonat e 500 Mg Chew Tabl et PO 1,000 mg BID ASHLEY Administration Carvedilol 25 mg 06/10/22 18:00 06/11/22 08:43 Carvedilol 25 Mg Tablet PO 25 mg BID ASHLEY Administration Chlorhexidine Gluc og 30 ml 06/10/22 17:00 06/11/22 13:21 Chlorhexidine Gl uconate 0.12% Btl 473 Ml MUCOUS MEM 30 ml QID ASHLEY Administration Clopidogrel Bisulf ate 75 mg 06/10/22 18:00 06/11/22 08:43 Clopidogrel 75 M g Tablet PO 75 mg BID ASHLEY Administration Ezetimibe 10 mg 06/11/22 09:00 06/11/22 08:49 Ezetimibe 10 Mg Tablet PO 10 mg DAILY ASHLEY Administration Enoxaparin Sodium 80 mg 06/10/22 18:00 06/11/22 05:22 Enoxaparin 80 Mg /0.8 Ml Syringe SUBCUT 80 mg Q12H ASHLEY Administration Gabapentin 300 mg 06/10/22 18:00 06/10/22 18:01 Gabapentin 300 M g Capsule PO 300 mg BEDTIME@1800 ASHLEY Administration Insulin Human Lisp ro 0 unit 06/10/22 18:00 06/11/22 13:20 Insulin Lispro 1 00 Unit/1 Ml SUBCUT Not Given TIDWM ASHLEY Protocol Multivitamins Ther apeutic 1 tab 06/11/22 09:00 06/11/22 08:43 Multivitamin The rapeutic Tablet PO 1 tab DAILY ASHLEY Administration Mupirocin 1 applic 06/10/22 18:00 06/11/22 08:48 Mupirocin Oint 2 2 Gm NASAL 06/15/22 17:59 1 applic BID ASHLEY Administration Non-Formulary 25 mg 06/11/22 08:00 06/11/22 08:53 Medication ( PO Not Given Jardiance 25 Mg DAILY@0800 ASHLEY Tablet) Ofloxacin 2 drop 06/10/22 18:45 06/11/22 08:50 Ofloxacin 0.3% O p Soln 5 Ml Btl EAR-BOTH 2 drop BID ASHLEY Administration Ondansetron HCl 4 mg 06/10/22 16:42 06/11/22 01:18 Ondansetron 2 Mg /Ml Sdv 2 Ml IVP 4 mg Q6H PRN Administration NAUSEA AND VOMITI NG Oxycodone HCl 5 mg 06/10/22 16:42 06/10/22 23:26 Oxycodone 5 Mg I r Tab/Cap PO 5 mg Q4H PRN Administration MODERATE PAIN Polysaccharide Iro n Complex 150 mg 06/10/22 18:00 06/11/22 08:42 Iron Polysacchar floridalma Complex 150 Mg Capsule PO 150 mg BIDWM ASHLEY Administration Senna/Docusate Sod ium 2 tab 06/10/22 18:00 06/11/22 08:43 Sennosides-Docus ate Tablet PO 2 tab BID ASHLEY Administration Tamsulosin HCl 0.4 mg 06/11/22 09:00 06/11/22 08:43 Tamsulosin 0.4 M g Capsule PO 0.4 mg DAILY ASHLEY Administration Vitamin D 1,000 unit 06/11/22 09:00 06/11/22 08:43 Cholecalciferol (Vitamin D3) 1,000 Unit Tablet PO 1,000 unit DAILY ASHLEY Administration Vitals/I&O/Wt Last Vital Signs Temp 98 F 06/11/22 12:20 Pulse 66 06/11/22 12:20 Resp 18 06/11/22 12:20 BP 128/65 06/11/22 12:20 Pulse Ox 92 06/11/22 12:20 O2 Del Method 06/11/22 08:46 O2 Flow Rate 2 06/11/22 08:46 06/11/22 06/11/22 06/11/22 06:59 14:59 22:59 Intake Total 340 / 2040 150 / 150 Balance 340 / 1340 150 / 150 Weight last 48 hrs Weight 81.465 kg Physical Exam HENMT: COMMON NORMALS: normocephalic and atraumatic HEAD & SCALP: normocephalic and atraumatic Resp: COMMON NORMALS: clear to auscultation bilaterally EFFORT & INSPECTION: Yes symmetric chest movement AUSCULTATION: clear to auscultation bilaterally Cardio: COMMON NORMALS: regular rate, regular rhythm, S1 normal heart sound present, S2 normal heart sound present, No gallops present (Cardio), No murmurs present (Cardio), No rub (Cardio) and Peripheral pulses 2+ throughout RATE: regular rate RHYTHM: regular rhythm HEART SOUNDS: S1 normal heart sound present and S2 normal heart sound present PERIPHERAL PULSES: Peripheral pulses 2+ throughout GI: COMMON NORMALS: Normal to inspection, nondistended, normoactive bowel sounds present, Soft to palpation, non-tender, No hepatosplenomegaly present and no masses AUSCULTATION: Yes normoactive bowel sounds PALPATION: Yes Soft to palpation and Yes No hepatosplenomegaly present RECTAL EXAM: Yes deferred Extremity: COMMON NORMALS: no clubbing, cyanosis or edema and no pedal edema Urinary Catheter Management: Meyer: Cath Placed During This Visit: yes, but has since been removed by the nurse Reason for Continuing Indwelling Catheter: Other Urinary Catheter Date of Insertion: 06/10/22 Urinary Catheter Time of Insertion: 11:00 Date Urinary Catheter Removed: 06/11/22 Time Urinary Catheter Discontinued: 05:31 Data 06/11/22 04:02 06/11/22 04:02 A&P Assessment and plan (1) Painful orthopaedic hardware: (2) Type 2 diabetes mellitus: (3) 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: Qualifiers: Encounter type: subsequent encounter Fracture healing: with delayed healing Qualified Code(s): M84.552G - Pathological fracture in neoplastic disease, left femur, subsequent encounter for fracture with delayed healing (4) Arteriosclerotic heart disease (ASHD): (5) PAD (peripheral artery disease): (6) COPD (chronic obstructive pulmonary disease): (7) Hypertension: Qualifiers: Hypertension type: essential hypertension Qualified Code(s): I10 - Essential (primary) hypertension (8) Metastatic non-small cell lung cancer: Plan 82 year old male with past medical history of metastatic non-small cell lung cancer, Recurrent DVT, on Lovenox for anticoagulation, peripheral arterial disease with recent revascularization, hypertension, coronary artery disease s/p PTCA , s/p CABG , diabetes was admitted under orthopedic service for the management of 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
[2022-06-11 15:54] VITALS: BP 143/65; PULSE 73; RESP 17; O2SAT 92
--- NOTE | 2022-06-11 16:18 | PM.PN ---
Subjective Subjective: Patient is seen in his room with his . He is still on a clear liquid diet as he had nausea last evening and this morning. He is encouraged to work on moving toward regular diet. He is also being followed by the medical service. Medications: Medication Review Details: Generic Name Dose Route Start Last Admin Trade Name Laura PRN Reason Stop Dose Admin Hydrocodone Bitart /Acetaminophen 1 tab 06/10/22 16:42 06/11/22 08:47 Hydrocodone-Acet aminophen 5-325 Mg Tablet PO 1 tab Q4H PRN Administration pain Allopurinol 300 mg 06/11/22 08:00 06/11/22 08:43 Allopurinol 300 Mg Tablet PO 300 mg DAILY@0800 ASHLEY Administration Aspirin 325 mg 06/11/22 09:00 06/11/22 08:44 Aspirin 325 Mg E c Tablet PO 325 mg DAILY ASHLEY Administration Atorvastatin Calci um 20 mg 06/10/22 18:00 06/11/22 08:52 Atorvastatin 40 Mg Tablet PO 20 mg BID@0800,1800 ASHLEY Administration Calcium Carbonate 1,000 mg 06/10/22 18:00 06/11/22 08:43 Calcium Carbonat e 500 Mg Chew Tabl et PO 1,000 mg BID ASHLEY Administration Carvedilol 25 mg 06/10/22 18:00 06/11/22 08:43 Carvedilol 25 Mg Tablet PO 25 mg BID ASHLEY Administration Chlorhexidine Gluc og 30 ml 06/10/22 17:00 06/11/22 13:21 Chlorhexidine Gl uconate 0.12% Btl 473 Ml MUCOUS MEM 30 ml QID ASHLEY Administration Clopidogrel Bisulf ate 75 mg 06/10/22 18:00 06/11/22 08:43 Clopidogrel 75 M g Tablet PO 75 mg BID ASHLEY Administration Ezetimibe 10 mg 06/11/22 09:00 06/11/22 08:49 Ezetimibe 10 Mg Tablet PO 10 mg DAILY ASHLEY Administration Enoxaparin Sodium 80 mg 06/10/22 18:00 06/11/22 05:22 Enoxaparin 80 Mg /0.8 Ml Syringe SUBCUT 80 mg Q12H ASHLEY Administration Gabapentin 300 mg 06/10/22 18:00 06/10/22 18:01 Gabapentin 300 M g Capsule PO 300 mg BEDTIME@1800 ASHLEY Administration Insulin Human Lisp ro 0 unit 06/10/22 18:00 06/11/22 13:20 Insulin Lispro 1 00 Unit/1 Ml SUBCUT Not Given TIDWM [facility] Protocol Multivitamins Ther apeutic 1 tab 06/11/22 09:00 06/11/22 08:43 Multivitamin The rapeutic Tablet PO 1 tab DAILY ASHLEY Administration Mupirocin 1 applic 06/10/22 18:00 06/11/22 08:48 Mupirocin Oint 2 2 Gm NASAL 06/15/22 17:59 1 applic BID ASHLEY Administration Non-Formulary 25 mg 06/11/22 08:00 06/11/22 08:53 Medication ( PO Not Given Jardiance 25 Mg DAILY@0800 ASHLEY Tablet) Ofloxacin 2 drop 06/10/22 18:45 06/11/22 08:50 Ofloxacin 0.3% O p Soln 5 Ml Btl EAR-BOTH 2 drop BID ASHLEY Administration Ondansetron HCl 4 mg 06/10/22 16:42 06/11/22 01:18 Ondansetron 2 Mg /Ml Sdv 2 Ml IVP 4 mg Q6H PRN Administration NAUSEA AND VOMITI NG Oxycodone HCl 5 mg 06/10/22 16:42 06/10/22 23:26 Oxycodone 5 Mg I r Tab/Cap PO 5 mg Q4H PRN Administration MODERATE PAIN Polysaccharide Iro n Complex 150 mg 06/10/22 18:00 06/11/22 08:42 Iron Polysacchar floridalma Complex 150 Mg Capsule PO 150 mg BIDWM ASHLEY Administration Senna/Docusate Sod ium 2 tab 06/10/22 18:00 06/11/22 08:43 Sennosides-Docus ate Tablet PO 2 tab BID ASHLEY Administration Tamsulosin HCl 0.4 mg 06/11/22 09:00 06/11/22 08:43 Tamsulosin 0.4 M g Capsule PO 0.4 mg DAILY ASHLEY Administration Vitamin D 1,000 unit 06/11/22 09:00 06/11/22 08:43 Cholecalciferol (Vitamin D3) 1,000 Unit Tablet PO 1,000 unit DAILY ASHLEY Administration Vitals/I&O/Wt Last Vital Signs Temp 98 F 06/11/22 12:20 Pulse 73 06/11/22 15:54 Resp 17 06/11/22 15:54 BP 143/65 06/11/22 15:54 Pulse Ox 92 06/11/22 15:54 O2 Del Method 06/11/22 08:46 O2 Flow Rate 2 06/11/22 08:46 06/11/22 06/11/22 06/11/22 06:59 14:59 22:59 Intake Total 340 / 2040 250 / 250 Balance 340 / 1340 250 / 250 Weight last 48 hrs Weight 179 lb 9.6 oz Physical Exam Const: COMMON NORMALS: no acute distress, average body habitus, patient oriented x3 and alert GENERAL APPEARANCE: cooperative and comfortable ORIENTATION/CONSCIOUSNESS: Yes awake HENMT: COMMON NORMALS: normocephalic and atraumatic HEAD & SCALP: normocephalic and atraumatic Eye: GENERAL EYE: appearance normal, both eyes and all related structures Chest: COMMONS NORMALS: normal inspection of the chest Resp: COMMON NORMALS: normal respiratory effort EFFORT & INSPECTION: Yes able to speak in complete sentences and Yes symmetric chest movement Extremity: LEFT LOWER EXTREMITY: Yes hip joint (No significant swelling.) Left hip: Yes inspection and Yes neurovascular exam (Intact distally. No evidence of DVT.) Neuro: COMMON NORMALS: patient oriented x3 SENSORIUM/ORIENTATION: Yes alert Psych: COMMON NORMALS: mental status grossly normal APPEARANCE: Yes grossly normal ATTITUDE: Yes calm and Yes engaged ATTENTION/CONCENTRATION: Yes attention grossly intact Skin: COMMON NORMALS: no rashes or lesions noted GENERAL SKIN EXAM: no rashes or lesions noted Urinary Catheter Management: Meyer: Cath Placed During This Visit: yes, but has since been removed by the nurse Reason for Continuing Indwelling Catheter: Other Urinary Catheter Date of Insertion: 06/10/22 Urinary Catheter Time of Insertion: 11:00 Date Urinary Catheter Removed: 06/11/22 Time Urinary Catheter Discontinued: 05:31 Data 06/11/22 04:02 06/11/22 04:02 A&P Assessment and plan (1) History of revision of total replacement of left hip joint: Patient is seen in his room. He still continues to complain of nausea. He has been up to the chair, but he has not ambulated in the hallway. Plan is that he would be discharged to home for postoperative therapies. He will need a few days in the hospital, however, to resolve nausea and increased independence. 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
[2022-06-11 17:16] LABS: Glucose Point of Care 162 mg/dL (70-110)
[2022-06-11] MEDS: acetaminophen 500 mg Tablet 1000 MG PO (18:08)
[2022-06-11] MEDS: gabapentin 300 mg Capsule PO (18:11)
[2022-06-11 21:01] VITALS: BP 123/65; PULSE 78; RESP 19; TEMP 36.8; O2SAT 90
[2022-06-11 21:39] LABS: Glucose Point of Care 186 mg/dL (70-110)
[2022-06-12 00:53] VITALS: BP 130/71; PULSE 79; RESP 19; TEMP 36.8; O2SAT 91
--- NOTE | 2022-06-12 00:57 | PC.NURSE ---
Patient reports no complaints of nausea during shift at this time. Patient has been resting in bed, locked in lowest position with three side rails up and call light within reach. No complaints of pain unless moving. Upon previous rounding, patient was found to have removed the abductor pillow from between patient's legs and thrown it on the floor; abductor pillow placed back between patient's legs. Patient has also voided into urinal during shift. Patient reports no major complaints of discomfort or nausea during shift.
[2022-06-12] MEDS: acetaminophen 500 mg Tablet 1000 MG PO ×2 (01:00→10:29)
[2022-06-12] MEDS: atorvastatin 40 mg Tablet 20 MG PO (08:47)
[2022-06-12] MEDS: calcium carbonate 500 mg Chew Tablet 1000 MG PO (08:47)
[2022-06-12] MEDS: carvedilol 25 mg Tablet PO (08:47)
[2022-06-12] MEDS: aspirin 325 mg EC Tablet PO (08:47)
[2022-06-12] MEDS: cholecalciferol (vitamin D3) 1,000 unit Tablet 1000 UNIT PO (08:47)
[2022-06-12] MEDS: allopurinol 300 mg Tablet PO (08:47)
[2022-06-12] MEDS: multivitamin therapeutic Tablet 1 TAB PO (08:47)
[2022-06-12] MEDS: HYDROcodone-acetaminophen 5-325 mg Tablet 1 TAB PO (08:47)
[2022-06-12] MEDS: tamsulosin 0.4 mg Capsule PO (08:47)
[2022-06-12] MEDS: clopidogrel 75 mg Tablet PO (08:48)
[2022-06-12] MEDS: iron polysaccharide complex 150 mg Capsule PO (08:48)
[2022-06-12] MEDS: chlorhexidine gluconate 0.12% Btl 473 mL 30 ML MUCOUS MEM (08:48)
[2022-06-12] MEDS: sennosides-docusate Tablet 2 TAB PO (08:50)
[2022-06-12] MEDS: ezetimibe 10 mg Tablet PO (08:51)
[2022-06-12] MEDS: mupirocin oint 22 gm 1 APPLIC NASAL (08:52)
[2022-06-12 09:23] LABS: Glucose Point of Care 227 mg/dL (70-110)
[2022-06-12] MEDS: insulin lispro 100 unit/1 mL SUBCUT (10:28)
--- NOTE | 2022-06-12 10:50 | PC.CHAP ---
Pastoral Care Encounter/Spiritual Assessment Type of Contact [] Declined postpartum nurse visit [] Patient/Family/Request visit [] Outpatient visit [] Follow-up visit [] Physician referral [] Code/Alert [x] Routine visit [] Staff referral [] Actively dying [] Patient sleeping [] Family support [] [] Out of room [] Palliative care [] [] Receiving care in room [] Pre-surgical visit [] Trauma [] Long length of stay [] ICU visit [] Other: Relational/Emotional Strength []x Patient feels connected with others/family/visitors/staff [] Distress [] Loneliness/isolation [] Abandonment Spirituality of Patient [x] Person of Cecily [] Attends Mosque of their Cecily [x] Believes in Prayer [] Reads Bible or Methodist materials [] There are Spiritual issues to be addressed Salvage Mechanic Interventions [x] Prayer [x] Active listening []x Non-anxious presence x[] Spiritual/emotional support [] Crisis/trauma care [] Spiritual counseling [] Bereavement support [] Provided bereavement packet [] Provided Bible/devotional materials [] Provided toy/stuffed animal, coloring book to patient or family member [] Provided Communion [] Anointing/[place] [] Salvation [x] Completed spiritual assessment [] Other: Impact on Illness or Injury [] Angry [] Fearful [] Anxious [] Often cries [] Exhaustion [] Unable to work [] Unable to attend scientology [] Unable to walk/stand [] Unable to read [] Unable to drive [] Unable to eat/drink [] Unable to sleep [] Unable to be with family [] Patient intubated [] Other: Summary Time spent with patient 15 min
--- NOTE | 2022-06-12 11:31 | PM.DCS ---
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 In February 2019, the patient had a prophylactic nailing of the left hip for impending fracture secondary to metastatic disease.? The patient's diagnosis is of metastatic lung cancer to this hip area.? Most recently, he has had increasing pain, and his PET scan and CT were concerning for nonunion or new fracture to the area that had been previously prophylactically nail.? After evaluation, the patient was felt to have metastatic disease to this area which was causing symptoms consistent with fracture causing him considerable discomfort.? After discussion, we elected to proceed with removal of the gamma nail with plans for revision hip arthroplasty utilizing the Islam Modular [place] hip system, and the decision was to be made at the time of surgery rather to include a bipolar femoral head or a fixed head with acetabular component.? Risks and complications were discussed preoperatively, and consents were signed. Hospital Course Hospital Course This 82-year-old gentleman was admitted to the hospital following revision total hip arthroplasty. He has revision components placed in the form of revision hip arthroplasty with bipolar style cup. Gamma nail was also removed at the time of this visit. On the first postoperative day, the patient was having some difficulty with ambulation, and part of this was secondary to nausea. He was continued on a clear liquid diet. Today, he is up in a chair and feeling well. He feels ready to be discharged home. His plan is to go to outpatient therapy. He is routinely on enoxaparin as well as Plavix, and this will be continued for him as his DVT prophylaxis. He will follow-up with me as previously scheduled. Physical Exam Const: COMMON NORMALS: no acute distress, average body habitus, patient oriented x3 and alert GENERAL APPEARANCE: cooperative and comfortable ORIENTATION/CONSCIOUSNESS: Yes awake HENMT: COMMON NORMALS: normocephalic and atraumatic HEAD & SCALP: normocephalic and atraumatic Eye: GENERAL EYE: appearance normal, both eyes and all related structures Chest: COMMONS NORMALS: normal inspection of the chest Resp: COMMON NORMALS: normal respiratory effort EFFORT & INSPECTION: Yes able to speak in complete sentences and Yes symmetric chest movement Extremity: LEFT LOWER EXTREMITY: Yes hip joint (Dressing is dry and intact.) Left hip: Yes inspection (There is no evidence of erythema or significant ecchymosis.), Yes palpation (Minimal tenderness.), Yes ROM (Comfortably up in a chair.) and Yes neurovascular exam (Intact with no evidence of DVT.) Neuro: COMMON NORMALS: patient oriented x3 SENSORIUM/ORIENTATION: Yes alert Psych: COMMON NORMALS: mental status grossly normal APPEARANCE: Yes grossly normal ATTITUDE: Yes calm and Yes engaged ATTENTION/CONCENTRATION: Yes attention grossly intact Skin: COMMON NORMALS: no rashes or lesions noted GENERAL SKIN EXAM: no rashes or lesions noted Urinary Catheter Management: Meyer: Cath Placed During This Visit: yes, but has since been removed by the nurse Reason for Continuing Indwelling Catheter: Other Urinary Catheter Date of Insertion: 06/10/22 Urinary Catheter Time of Insertion: 11:00 Date Urinary Catheter Removed: 06/11/22 Time Urinary Catheter Discontinued: 05:31 Discharge Data Studies Completed and Pending Completed Studies During Hospitalization Category Date Time Status XR pelvis 1-2V* [id number] Routine Exams 06/10/22 15:27 Completed Pending at discharge Category Date Time Status Pathology: Surgical [PTH] Routine Pth 06/10/22 14:35 Received Radiology Impressions Pelvis X-Ray 06/10/22 15:27 IMPRESSION: 1. Left total hip arthroplasty. Laboratory Results WBC 7.9 10^3/uL (4.0-10.0) 06/11/22 04:02 RBC 5.17 10^6/uL (4.1-5.3) 06/11/22 04:02 Hgb 15.5 g/dL (11.7-16.6) 06/11/22 04:02 Hct 46.4 % (42.0-52.0) 06/11/22 04:02 MCV 89.7 fl (80-94) 06/11/22 04:02 MCH 30.0 pg (28.0-34.0) 06/11/22 04:02 MCHC 33.4 g/dL (30.0-36.0) 06/11/22 04:02 RDW 13.6 % (12.1-15.1) 06/11/22 04:02 Plt Count 186 10^3/cmm (130-400) 06/11/22 04:02 MPV 9.4 fL (7.4-10.4) 06/11/22 04:02 Neut % (Auto) 86.1 % 06/11/22 04:02 Lymph % (Auto) 6.2 % 06/11/22 04:02 [place] % (Auto) 6.9 % 06/11/22 04:02 Eos % (Auto) 0.1 % 06/11/22 04:02 Baso % (Auto) 0.3 % 06/11/22 04:02 Neut # (Auto) 6.83 10^3/uL (1.8-7.7) 06/11/22 04:02 Lymph # (Auto) 0.5 10^3/uL (0.8-4.8) L 06/11/22 04:02 [place] # (Auto) 0.6 10^3/uL (0.2-0.9) 06/11/22 04:02 Eos # (Auto) 0.0 10^3/uL (0.0-0.8) 06/11/22 04:02 Baso # (Auto) 0.0 10^3/uL (0.0-0.1) 06/11/22 04:02 Nucleated RBC % (auto) 0 % 06/11/22 04:02 Nucleated RBCs # 0.0 /100WBC 06/11/22 04:02 Sodium 137 mmol/L (136-145) 06/11/22 04:02 Potassium 4.4 mmol/L (3.5-5.1) 06/11/22 04:02 Chloride 99 mmol/L (98-107) 06/11/22 04:02 Carbon Dioxide 20 mmol/L (22-29) L 06/11/22 04:02 Anion Gap 22.4 (5-19) H 06/11/22 04:02 BUN 20 mg/dL (8-23) 06/11/22 04:02 Creatinine 0.9 mg/dL (0.7-1.2) 06/11/22 04:02 GFR Calculation Not Reportable 06/11/22 04:02 Glucose 140 mg/dL (65-115) H 06/11/22 04:02 POC Glucose 227 mg/dL (70-110) H 06/12/22 09:03 Calculated Osmolality 289 mOsm/kg (285-295) 06/11/22 04:02 Calcium 9.3 mg/dL (8.5-10.5) 06/11/22 04:02 Urine Color Yellow (Yellow) 06/10/22 09:14 Urine Appearance Clear (CLEAR) 06/10/22 09:14 Urine pH 5 (5-7) 06/10/22 09:14 Ur Specific [place] 1.015 (1.005-1.030) 06/10/22 09:14 Urine Protein Neg (Negative) 06/10/22 09:14 Urine Glucose (UA) 4+ (Normal) H 06/10/22 09:14 Urine Ketones Negative (Negative) 06/10/22 09:14 Urine Blood Neg (Negative) 06/10/22 09:14 Urine Nitrate Negative (Negative) 06/10/22 09:14 Urine Bilirubin Neg (Negative) 06/10/22 09:14 Urine Urobilinogen Norm mg/dL (Negative) 06/10/22 09:14 Ur Leukocyte Esterase Negative (Negative) 06/10/22 09:14 Vitals Last Vital Signs Temp 98.2 F 06/12/22 00:53 Pulse 79 06/12/22 00:53 Resp 19 H 06/12/22 00:53 BP 130/71 06/12/22 00:53 Pulse Ox 91 06/12/22 00:53 O2 Del Method 06/12/22 00:53 O2 Flow Rate 2 06/12/22 08:00 Discharge Plan Discharge Patient Disposition: Home Condition: Stable Prescriptions: New oxycodone 5 mg Tablet 5 mg PO Q4H PRN (Reason: Moderate Pain) 7 Days Qty: 30 0RF acetaminophen 500 mg Tablet 1,000 mg PO Q8H 15 Days Qty: 90 0RF Continued ofloxacin 0.3 % drops 2 drp otic (ear) BID 360 Days Qty: 10 12RF Rx Instructions: Apply 2 drops to right ear twice daily ezetimibe [Zetia] 10 mg tablet 10 mg PO DAILY Qty: 90 0RF Plavix 75 mg tablet 75 mg PO BID Ozempic 0.25 mg or 0.5 mg(2 mg/1.5 mL) pen injector 0.25 mg SUBCUT .weekly hydrocodone-acetaminophen 5-325 mg tablet 1 tab PO Q4H PRN (Reason: pain) 30 Days Qty: 120 0RF allopurinol 300 mg tablet 300 mg PO DAILY@0800 Qty: 90 0RF enoxaparin [Lovenox] 80 mg/0.8 mL syringe 80 mg SUBCUT Q12H Qty: 8 0RF tamsulosin [Flomax] 0.4 mg capsule 0.4 mg PO DAILY Qty: 90 3RF lovastatin 40 mg tablet 40 mg PO BID@0800,1800 Qty: 180 0RF gabapentin 300 mg capsule 300 mg PO BEDTIME@1800 Qty: 90 0RF fluticasone propionate [Flonase Allergy Relief] 50 mcg/actuation spray,suspension 2 spray INTRANASAL DAILY PRN (Reason: Nasal Congestion) Qty: 16 4RF vitamin T99-uanpz acid 0.5-1 mg Tablet 1 tab PO DAILY@0800 cholecalciferol (vitamin D3) [Vitamin D3] 2,000 unit Tablet 2,000 unit PO DAILY@0800 omega 6-mwa-hzl-fish oil [Fish Oil] 1,000 mg (120 mg-180 mg) Capsule 2 cap PO BID Jardiance 25 mg tablet 25 mg PO DAILY@0800 cetirizine 10 mg Tablet 5 mg PO DAILY PRN (Reason: Allergy Symptoms) carvedilol 25 mg tablet 25 mg PO BID Rx Instructions: TAKE 1 TABLET TWICE DAILY AT 8:00 AM AND 6:00 PM Discharge Orders: Discharge Order (Routine); Ordered 06/12/22 Ordered By: Fiona Chin Other Ambulatory Orders: Physical Therapy Eval and Treat Outpatient (Order) Timeframe: 6 Weeks Facility: [facility] - Location: Physical Therapy Ordered By: Fiona Chin Referrals: Fiona Chin MD [Physician] - 06/24/22 1:00 pm Discharge Diet: Advance as tolerated and Usual diet Discharge Activity: Increase activity as tolerated, Limit activity as instructed, Use walker/crutches as instructed and As per PT/OT instructions Patient Instructions: Opioid Safety Activity Restrictions/Additional Instructions: Ice to left hip. You may get your leg wet, but do not sit in the bathtub. Posterior hip precautions. Range of motion and strengthening per physical therapy. 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
[2022-06-12 12:36] VITALS: BP 130/71; PULSE 79; RESP 19; TEMP 36.8; O2SAT 91
== END 2022-06-12 12:37 | disposition home or self-care (01) | DRG 522 ==
LOC: MEDSURG 16:58
PROVIDERS: Anesthesiology; Admitting Provider Specialist; PCP Family Medicine; Visit Provider Specialist
PROC: 0SRB0JZ Replacement of Left Hip Joint with Synthetic Substitute, Open Approach (ICD-10-PCS; CPT 27125; principal; 2022-06-10 10:05)
DX: M84.552A Pathological fracture in neoplastic disease, left femur, initial encounter for fracture (principal); C34.90 Malignant neoplasm of unspecified part of unspecified bronchus or lung; T84.84XA Pain due to internal orthopedic prosthetic devices, implants and grafts, initial encounter; C79.51 Secondary malignant neoplasm of bone; Y79.1 Therapeutic (nonsurgical) and rehabilitative orthopedic devices associated with adverse incidents; Z79.02 Long term (current) use of antithrombotics/antiplatelets; Z79.891 Long term (current) use of opiate analgesic; N40.0 Benign prostatic hyperplasia without lower urinary tract symptoms; J44.9 Chronic obstructive pulmonary disease, unspecified; I25.10 Atherosclerotic heart disease of native coronary artery without angina pectoris; Z95.1 Presence of aortocoronary bypass graft; Z88.0 Allergy status to penicillin; Z90.2 Acquired absence of lung [part of]; E11.42 Type 2 diabetes mellitus with diabetic polyneuropathy; E11.51 Type 2 diabetes mellitus with diabetic peripheral angiopathy without gangrene; G47.33 Obstructive sleep apnea (adult) (pediatric); I10 Essential (primary) hypertension; E78.5 Hyperlipidemia, unspecified; E83.110 Hereditary hemochromatosis; M10.9 Gout, unspecified; K21.9 Gastro-esophageal reflux disease without esophagitis; M19.90 Unspecified osteoarthritis, unspecified site
CPT/HCPCS: 36415; 36416; 51702; 72170; 80048; 81003; 82962; 85025; 88304; 88311; 96372; 97110; 97116; 97162; 97167; 97530; 97535; C1713; C1776; J0131; J1650; J1815; J2370; J2405; J2704; J3370; J3490; J7030; P9045

== ENCOUNTER 2022-06-18 01:59 | Emergency (ER) | payer MEDICARE, SELFPAY ==
[2022-06-18 02:18] VITALS: BP 119/65; PULSE 75; RESP 18; TEMP 36.5; O2SAT 93; BMI 30.4
[2022-06-18 02:26] VITALS: BP 148/66; PULSE 70; PULSE 73; RESP 18; O2SAT 90
--- NOTE | 2022-06-18 02:35 | USR_ITS ---
PROCEDURE INFORMATION: Exam: US Duplex Left Lower Extremity Veins, Limited Exam date and time: 06/18/2022 3:16 AM Age: 82 years old Clinical indication: Edema, localized; Lower extremity, left; Prior surgery; Surgery date: 3-7 days post-operative; Surgery type: Lt hip orif; Additional info: Leg swelling TECHNIQUE: Imaging protocol: Real-time Duplex ultrasound of the Left Lower Extremity with 2-D parra scale, color Doppler flow and spectral waveform analysis with image documentation. Limited exam focused on the left lower extremity veins. COMPARISON: CT hip LT wo con* [id number] 11/28/2021 1:05 PM FINDINGS: Left deep veins: The left common femoral vein is partially compressible. The left profunda femoral vein is not fully compressible. The left femoral vein is nonocclusive. It is partially compressible. These veins also show decreased augmentation. The left popliteal vein is patent. Left calf veins are patent. Left superficial veins: The left greater saphenous vein does not compress. Soft tissues: Unremarkable. US/CV venous duplex [facility] [id number] IMPRESSION: 1. Left common femoral, profunda femoral, and femoral DVT. Appears generally nonocclusive and may be subacute in age. 2. Left greater saphenous SVT. 3. Full details above. THIS REPORT CONTAINS FINDINGS THAT MAY BE CRITICAL TO PATIENT CARE. The findings were verbally communicated via telephone conference at 3:53 AM PIG CONVEYOR OPERATOR on 06/18/[address] Tierney. The findings were acknowledged and understood.
--- NOTE | 2022-06-18 02:35 | XRR_ITS ---
PROCEDURE INFORMATION: Exam: XR Left Hip Exam date and time: 06/18/2022 2:50 AM Age: 82 years old Clinical indication: Prior surgery; Surgery date: <1 month; Surgery type: Left hip surgery on 06/10/2022. Arterial stent; Patient HX: C/O persistent left hip pain post hip surgery on 06/10/2022 TECHNIQUE: Imaging protocol: Radiologic exam of the Left hip. Views: 2 or 3 views hip with pelvis when performed. COMPARISON: CR XR pelvis 1-2V* [id number] 06/10/2022 3:29 PM FINDINGS: Bones/joints: Left hip arthroplasty. Left lateral hip soft tissue swelling with small air foci. No acute fracture or dislocation visualized. Soft tissues: See Bones/joints finding. Vasculature: Long segment left SFA stent. Advanced diffuse vascular calcification noted. XR/XR hip LT 2-3V wo/w pel* [id number] IMPRESSION: 1. Left lateral hip soft tissue edema and air. Advise correlation. 2. Postop and other chronic findings. Negative for fracture.
--- NOTE | 2022-06-18 02:36 | W.ED.EXTPRO ---
HPI - Extremity Problem General: Chief complaint: Extremity Problem,Nontraumatic Stated complaint: hip pain post pin surgery Time Seen by Provider: 06/18/22 02:09 Source: patient Mode of arrival: ambulatory Limitations: no limitations History of Present Illness: 82-year-old male states he had hip surgery last week. He denies any fever he states he has had some increasing pain with swelling down to his leg he has had some pain and swelling of his left calf as well as concerned about possible DVT he is afebrile here. He has had no drainage or redness at the wound. He has been able to ambulate does have some pain with walking. Associated symptoms: Deny chest pain, fever(s) or rash Review of Systems Const: Denies: fever(s), chills, body aches or change in appetite Eyes: Denies: blurry vision or eye discomfort ENMT: Denies: throat pain or dental pain Card: Denies: chest pain Resp: Denies: dyspnea GI: Denies: abdominal pain, nausea, vomiting or diarrhea : Denies: dysuria Musc: Reports: extremity pain and extremity swelling Skin/Breast: Denies: rash Neuro: Denies: headache(s) Psych: Denies: depression Eren/Lymph: Denies: easy bruising All/Imm: Denies: urticaria PFSH ED PFSH: Medical History Allergic rhinitis BPH (benign prostatic hyperplasia) Carotid artery disease Celiac artery stenosis COPD (chronic obstructive pulmonary disease) Coronary artery disease DJD (degenerative joint disease) GERD (gastroesophageal reflux disease) Gout Hereditary hemochromatosis Hyperlipidemia Hypertension Metastatic non-small cell lung cancer Obstructive sleep apnea Peripheral arterial disease with history of revascularization Peripheral neuropathy Thromboembolism 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, 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 Type 2 diabetes mellitus Surgical History H/O arterial bypass of lower limb (1999) right leg History of left hip hemiarthroplasty (03/17/19) History of lobectomy of lung (04/29/17) right upper lobe lobectomy with mediastinal lymph node biopsy History of PTCA History of quadruple bypass (1996) History of tonsillectomy and adenoidectomy Hx of appendectomy Hx of cataract extraction Family History Mother Diabetes Chronic kidney disease (CKD) Brother CAD (coronary artery disease) Cancer Diabetes Son CAD (coronary artery disease) Denies family history of Clotting disorder Dementia Suicide Anesthesia complication Bleeding disorder Lung disease Stroke Social History Smoking and tobacco status: never smoked Alcohol intake: never Lives independently: Yes Household members: spouse History of recent travel: No Special jazlyn needs: No Physical Exam Const: COMMON NORMALS: no acute distress, patient oriented x3 and healthy appearing HENMT: COMMON NORMALS: normocephalic and atraumatic HEAD & SCALP: normocephalic and atraumatic Eye: COMMON NORMALS: Equal, round and reactive pupils present and EOMs intact bilaterally PUPIL: Yes Equal, round and reactive pupils present Neck/C-Spine: COMMON NORMALS: full ROM and supple Chest: COMMONS NORMALS: normal inspection of the chest and normal palpation of entire chest wall Resp: COMMON NORMALS: normal respiratory effort, No retractions, No use of accessory muscles and clear to auscultation bilaterally AUSCULTATION: clear to auscultation bilaterally Cardio: COMMON NORMALS: regular rate, regular rhythm and No murmurs present (Cardio) RATE: regular rate RHYTHM: regular rhythm GI: COMMON NORMALS: Normal to inspection, nondistended, normoactive bowel sounds present, Soft to palpation, non-tender and no masses PALPATION: Yes Soft to palpation Extremity: COMMON NORMALS: full ROM NARRATIVE EXTREMITY EXAM: Incisions clean dry and intact no drainage no redness has some slight swelling in his left lower leg distal pulses intact. Neuro: COMMON NORMALS: patient oriented x3, moves all extremities and no focal motor deficits Psych: COMMON NORMALS: mental status grossly normal, Normal thought process present and cooperative THOUGHT PROCESS: Normal thought process present Skin: COMMON NORMALS: no rashes or lesions noted and no wounds GENERAL SKIN EXAM: no rashes or lesions noted Course Vital Signs: Vital signs: Vital Signs Temperature 97.7 F 06/18/22 02:18 Pulse Rate 70 06/18/22 02:26 Respiratory Rate 18 06/18/22 02:58 Blood Pressure 148/66 06/18/22 02:26 Pulse Oximetry 90 06/18/22 02:58 Oxygen Delivery Me thod 06/18/22 02:26 MDM - Extremity (Nontraumatic) Medical Decision Making Patient presents here with left leg pain and swelling he does have a DVT appears to be subacute in nature he was off his Lovenox for his surgery he is currently back on his Lovenox injections he is to continue them no chest pain no shortness of breath no signs of PE he is follow-up his PCP in 2 to 4 days return if worsening he understands agrees to plan. Lab Data 06/18/22 02:45 06/18/22 02:45 Radiology Impressions Hip/Pelvis X-Ray 06/18/22 02:35 IMPRESSION: 1. Left lateral hip soft tissue edema and air. Advise correlation. 2. Postop and other chronic findings. Negative for fracture. Venous Duplex 06/18/22 02:35 IMPRESSION: 1. Left common femoral, profunda femoral, and femoral DVT. Appears generally nonocclusive and may be subacute in age. 2. Left greater saphenous SVT. 3. Full details above. THIS REPORT CONTAINS FINDINGS THAT MAY BE CRITICAL TO PATIENT CARE. The findings were verbally communicated via telephone conference at 3:53 AM CARRIER LOADER on 06/18/[address] Tierney. The findings were acknowledged and understood. Laboratory Results WBC 6.3 10^3/uL (4.0-10.0) 06/18/22 02:45 RBC 4.90 10^6/uL (4.1-5.3) 06/18/22 02:45 Hgb 15.0 g/dL (11.7-16.6) 06/18/22 02:45 Hct 44.4 % (42.0-52.0) 06/18/22 02:45 MCV 90.6 fl (80-94) 06/18/22 02:45 MCH 30.6 pg (28.0-34.0) 06/18/22 02:45 MCHC 33.8 g/dL (30.0-36.0) 06/18/22 02:45 RDW 13.8 % (12.1-15.1) 06/18/22 02:45 Plt Count 288 10^3/cmm (130-400) 06/18/22 02:45 MPV 9.3 fL (7.4-10.4) 06/18/22 02:45 Neut % (Auto) 62.5 % 06/18/22 02:45 Lymph % (Auto) 19.7 % 06/18/22 02:45 [place] % (Auto) 8.7 % 06/18/22 02:45 Eos % (Auto) 5.8 % 06/18/22 02:45 Baso % (Auto) 0.9 % 06/18/22 02:45 Neut # (Auto) 3.96 10^3/uL (1.8-7.7) 06/18/22 02:45 Lymph # (Auto) 1.3 10^3/uL (0.8-4.8) 06/18/22 02:45 [place] # (Auto) 0.6 10^3/uL (0.2-0.9) 06/18/22 02:45 Eos # (Auto) 0.4 10^3/uL (0.0-0.8) 06/18/22 02:45 Baso # (Auto) 0.1 10^3/uL (0.0-0.1) 06/18/22 02:45 Nucleated RBC % (auto) 0 % 06/18/22 02:45 Nucleated RBCs # 0.0 /100WBC 06/18/22 02:45 Sodium 135 mmol/L (136-145) L 06/18/22 02:45 Potassium 4.4 mmol/L (3.5-5.1) 06/18/22 02:45 Chloride 98 mmol/L (98-107) 06/18/22 02:45 Carbon Dioxide 28 mmol/L (22-29) 06/18/22 02:45 Anion Gap 13.4 (5-19) 06/18/22 02:45 BUN 21 mg/dL (8-23) 06/18/22 02:45 Creatinine 1.3 mg/dL (0.7-1.2) H 06/18/22 02:45 GFR Calculation Not Reportable 06/18/22 02:45 Glucose 166 mg/dL (65-115) H 06/18/22 02:45 Calculated Osmolality 287 mOsm/kg (285-295) 06/18/22 02:45 Calcium 9.5 mg/dL (8.5-10.5) 06/18/22 02:45 Total Bilirubin 1.0 mg/dL (0.15-1.2) 06/18/22 02:45 AST 116 U/L (0-40) H 06/18/22 02:45 ALT 245 U/L (0-41) H 06/18/22 02:45 Alkaline Phosphatase 157 U/L (40-130) H 06/18/22 02:45 Total Protein 6.7 g/dL (6.6-8.7) 06/18/22 02:45 Albumin 3.5 g/dL (3.5-5.2) 06/18/22 02:45 Globulin 3.2 g/dL (1.3-4.6) 06/18/22 02:45 Discharge Plan Discharge Patient Disposition: Home Clinical Impression: DVT (deep venous thrombosis) Condition: Stable Prescriptions: No Action ezetimibe [Zetia] 10 mg tablet 10 mg PO DAILY Qty: 90 0RF Plavix 75 mg tablet 75 mg PO BID Ozempic 0.25 mg or 0.5 mg(2 mg/1.5 mL) pen injector 0.25 mg SUBCUT .weekly hydrocodone-acetaminophen 5-325 mg tablet 1 tab PO Q4H PRN (Reason: pain) 30 Days Qty: 120 0RF allopurinol 300 mg tablet 300 mg PO DAILY@0800 Qty: 90 0RF enoxaparin [Lovenox] 80 mg/0.8 mL syringe 80 mg SUBCUT Q12H Qty: 8 0RF tamsulosin [Flomax] 0.4 mg capsule 0.4 mg PO DAILY Qty: 90 3RF lovastatin 40 mg tablet 40 mg PO BID@0800,1800 Qty: 180 0RF gabapentin 300 mg capsule 300 mg PO BEDTIME@1800 Qty: 90 0RF fluticasone propionate [Flonase Allergy Relief] 50 mcg/actuation spray,suspension 2 spray INTRANASAL DAILY PRN (Reason: Nasal Congestion) Qty: 16 4RF ofloxacin 0.3 % drops 2 drp otic (ear) BID 360 Days Qty: 10 12RF Rx Instructions: Apply 2 drops to right ear twice daily vitamin H10-ctsql acid 0.5-1 mg Tablet 1 tab PO DAILY@0800 cholecalciferol (vitamin D3) [Vitamin D3] 2,000 unit Tablet 2,000 unit PO DAILY@0800 omega 5-omo-ieo-fish oil [Fish Oil] 1,000 mg (120 mg-180 mg) Capsule 2 cap PO BID Jardiance 25 mg tablet 25 mg PO DAILY@0800 cetirizine 10 mg Tablet 5 mg PO DAILY PRN (Reason: Allergy Symptoms) carvedilol 25 mg tablet 25 mg PO BID Rx Instructions: TAKE 1 TABLET TWICE DAILY AT 8:00 AM AND 6:00 PM acetaminophen 500 mg Tablet 1,000 mg PO Q8H 15 Days Qty: 90 0RF oxycodone 5 mg Tablet 5 mg PO Q4H PRN (Reason: Moderate Pain) 7 Days Qty: 30 0RF Discharge Orders: Discharge ED (Routine); Ordered 06/18/22 Ordered By: Angela Tierney Referrals: Silver Alvarez DO [Primary Care Provider] - 1-3 days Discharge Diet: Advance as tolerated Discharge Activity: Resume usual activity Patient Instructions: Deep Vein Thrombosis (ED) Coding Level of Care Code ED Compressor Mechanic for Moises Fwd Exam Comprehensive
[2022-06-18 02:56] LABS: Basophils # 0.1 10^3/uL (0.0-0.1); Basophils % 0.9 %; Eosinophils # 0.4 10^3/uL (0.0-0.8); Eosinophils % 5.8 %; Hematocrit 44.4 % (42.0-52.0); Lymphocytes # 1.3 10^3/uL (0.8-4.8); Lymphocytes % 19.7 %; Mean Corpuscular HGB Conc 33.8 g/dL (30.0-36.0); Mean Corpuscular Hemoglobin 30.6 pg (28.0-34.0); Mean Corpuscular Volume 90.6 fl (80-94); Mean Platelet Volume 9.3 fL (7.4-10.4); Monocytes # 0.6 10^3/uL (0.2-0.9); Monocytes % 8.7 %; Neutrophils # 3.96 10^3/uL (1.8-7.7); Neutrophils % 62.5 %; Nucleated Red Blood Cells % 0 %; Platelet Count 288 10^3/cmm (130-400); Red Cell Distribution Width 13.8 % (12.1-15.1); White Blood Count 6.3 10^3/uL (4.0-10.0)
[2022-06-18 02:58] VITALS: RESP 18; O2SAT 90
[2022-06-18] MEDS: morphine 4 mg/mL SDV 1 mL IVP (02:58)
[2022-06-18] MEDS: ondansetron 2 mg/ML SDV 2 mL 4 MG IVP (02:58)
--- NOTE | 2022-06-18 03:08 | PC.NURSE ---
Addendum entered by KEY Coelho 06/18/22 03:10: Patient placed on 2L [place]. Sats 95%. Original Note: Patient sats 87-88% post Morphine admin. Pt was 90% prior. Per , he is supposed to be on oxygen at home, but doesn't wear it. Cpap at [facility] that he is also not compliant with.
[2022-06-18 03:16] LABS: Alanine Aminotransferase 245 U/L (0-41); Albumin Level 3.5 g/dL (3.5-5.2); Alkaline Phosphatase 157 U/L (40-130); Anion Gap 13.4 (5-19); Aspartate Amino Transferase 116 U/L (0-40); Blood Urea Nitrogen 21 mg/dL (8-23); Calcium 9.5 mg/dL (8.5-10.5); Carbon Dioxide 28 mmol/L (22-29); Chloride 98 mmol/L (98-107); Globulin 3.2 g/dL (1.3-4.6); Glucose 166 mg/dL (65-115); Osmolality Calculated 287 mOsm/kg (285-295); Potassium 4.4 mmol/L (3.5-5.1); Sodium 135 mmol/L (136-145); Total Protein 6.7 g/dL (6.6-8.7)
[2022-06-18 04:47] VITALS: BP 148/66; PULSE 82; RESP 18; O2SAT 90
== END 2022-06-18 04:10 | disposition home or self-care (01) ==
PROVIDERS: Emergency Provider Emergency Medicine; PCP Family Medicine
DX: I82.412 Acute embolism and thrombosis of left femoral vein (principal); J44.9 Chronic obstructive pulmonary disease, unspecified; I25.10 Atherosclerotic heart disease of native coronary artery without angina pectoris; E78.5 Hyperlipidemia, unspecified; I10 Essential (primary) hypertension; Z85.118 Personal history of other malignant neoplasm of bronchus and lung; E11.9 Type 2 diabetes mellitus without complications; Z96.642 Presence of left artificial hip joint
CPT/HCPCS: 73502; 80053; 85025; 93971; 96374; 96375; 99285; J2270; J2405

== ENCOUNTER → 2022-06-24 13:01 | Outpatient (BNVA) | payer MEDICARE, SELFPAY | PROVIDERS: PCP Family Medicine; Visit Provider Nurse Practitioner Family | DX: M84.552A Pathological fracture in neoplastic disease, left femur, initial encounter for fracture (principal); X58.XXXA Exposure to other specified factors, initial encounter; Z96.642 Presence of left artificial hip joint | CPT/HCPCS: 73502; 99024 ==

== ENCOUNTER 2022-06-27 06:00 | Outpatient (RCR) | payer MEDICARE, SELFPAY | END 2022-07-22 23:59 | disposition home or self-care (01) | LOC: SPT 06:00 | PROVIDERS: PCP Family Medicine; Visit Provider Specialist | DX: M84.552A Pathological fracture in neoplastic disease, left femur, initial encounter for fracture (principal); S72.142D Displaced intertrochanteric fracture of left femur, subsequent encounter for closed fracture with routine healing; X58.XXXD Exposure to other specified factors, subsequent encounter | CPT/HCPCS: 97110; 97161 ==

== ENCOUNTER → 2022-07-18 11:25 | Outpatient (BNVA) | payer MEDICARE, SELFPAY | PROVIDERS: PCP Family Medicine; Visit Provider Otolaryngology | DX: H61.23 Impacted cerumen, bilateral (principal) | CPT/HCPCS: 69210; 99212; 99213 ==

== ENCOUNTER → 2022-07-29 13:06 | Outpatient (BNVA) | payer MEDICARE, SELFPAY | PROVIDERS: PCP Family Medicine; Visit Provider Nurse Practitioner Family | DX: Z96.642 Presence of left artificial hip joint (principal); I73.9 Peripheral vascular disease, unspecified; B35.3 Tinea pedis; L60.3 Nail dystrophy; M67.472 Ganglion, left ankle and foot; E11.42 Type 2 diabetes mellitus with diabetic polyneuropathy | CPT/HCPCS: 11721; 73502; 99024 ==

== ENCOUNTER 2022-08-19 07:25 | Oncology outpatient (recurring) (ONCR) | payer MEDICARE, SELFPAY ==
[2022-08-19 07:57] LABS: Basophils # 0.1 10^3/uL (0.0-0.1); Basophils % 1.1 %; Eosinophils # 0.4 10^3/uL (0.0-0.8); Eosinophils % 6.6 %; Hematocrit 49.5 % (42.0-52.0); Hemoglobin 16.6 g/dL (11.7-16.6); Lymphocytes # 1.4 10^3/uL (0.8-4.8); Lymphocytes % 22.4 %; Mean Corpuscular HGB Conc 33.5 g/dL (30.0-36.0); Mean Corpuscular Hemoglobin 29.7 pg (28.0-34.0); Mean Corpuscular Volume 88.6 fl (80-94); Mean Platelet Volume 9.7 fL (7.4-10.4); Monocytes # 0.6 10^3/uL (0.2-0.9); Monocytes % 9.4 %; Neutrophils # 3.85 10^3/uL (1.8-7.7); Neutrophils % 60.2 %; Nucleated Red Blood Cells % 0 %; Platelet Count 212 10^3/cmm (130-400); Red Blood Count 5.59 10^6/uL (4.1-5.3); Red Cell Distribution Width 13.2 % (12.1-15.1); White Blood Count 6.4 10^3/uL (4.0-10.0)
[2022-08-19 08:20] LABS: Alanine Aminotransferase 15 U/L (0-41); Albumin Level 4.4 g/dL (3.5-5.2); Alkaline Phosphatase 51 U/L (40-130); Anion Gap 15.3 (5-19); Aspartate Amino Transferase 14 U/L (0-40); Blood Urea Nitrogen 24 mg/dL (8-23); Calcium 10.1 mg/dL (8.5-10.5); Carbon Dioxide 26 mmol/L (22-29); Chloride 96 mmol/L (98-107); Globulin 2.5 g/dL (1.3-4.6); Glucose 283 mg/dL (65-115); Osmolality Calculated 290 mOsm/kg (285-295); Potassium 4.3 mmol/L (3.5-5.1); Sodium 133 mmol/L (136-145); Thyroid Stimulating Hormone 5.25 uIU/mL (0.27-4.20); Total Bilirubin 0.8 mg/dL (0.15-1.2); Total Protein 6.9 g/dL (6.6-8.7)
== END 2022-08-19 23:59 | disposition home or self-care (01) ==
PROVIDERS: PCP Family Medicine; Visit Provider Internal Medicine Medical Oncology
DX: C34.11 Malignant neoplasm of upper lobe, right bronchus or lung (principal); I82.622 Acute embolism and thrombosis of deep veins of left upper extremity; C79.51 Secondary malignant neoplasm of bone; E03.9 Hypothyroidism, unspecified; Z92.3 Personal history of irradiation; Z79.01 Long term (current) use of anticoagulants; Z79.02 Long term (current) use of antithrombotics/antiplatelets; Z90.2 Acquired absence of lung [part of]; M25.552 Pain in left hip; R91.1 Solitary pulmonary nodule
CPT/HCPCS: 36415; 80053; 84443; 85025; 99214

== ENCOUNTER 2022-09-15 14:39 | Outpatient (CLI) | payer MEDICARE, SELFPAY ==
[2022-09-15] MEDS: iohexol 350 mg/mL 500 mL Btl (per mL) PO (16:16)
--- NOTE | 2022-09-15 17:00 | CTR_ITS ---
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 His disease was stage ib (t2a, n0, m0) at initial diagnosis, but with subsequent progression to stage alfredo (m1b). He also has hereditary hemochromatosis. ; Additional info: Restaging TECHNIQUE: Imaging protocol: Diagnostic computed tomography of the chest without contrast. Radiation optimization: All CT scans at this facility use at least one of these dose optimization techniques: automated exposure control; mA and/or kV adjustment per patient size (includes targeted exams where dose is matched to clinical indication); or iterative reconstruction. REPORTING DATA: Count of CT and Cardiac NM exams in prior 12 months: This patient has received 5 known CTs and 0 known cardiac nuclear medicine studies in the 12 months prior to the current study. COMPARISON: CT chest abdpel w/*[id number] 06/02/2022 2:14 PM RADIATION DOSE METRICS: Total DLP (mGy-cm): 549.16 FINDINGS: Lungs: Emphysematous change, interstitial prominence, and parenchymal stranding. Stable 4 mm left upper lobe pulmonary nodule series 4: Image 21). Stable right perihilar surgical clips. Pleural spaces: No pleural effusion. Heart: Coronary artery calcification. No cardiomegaly. Lymph nodes: Subcentimeter lymph nodes. Vasculature: Calcification in the normal caliber thoracic aorta. Diaphragm: Asymmetric elevation of the right hemidiaphragm. Bones/joints: Median sternotomy. Old right rib fractures. Degenerative change. Soft tissues: Unremarkable. When correlating with the previous study, no significant interval changes are present. 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 His disease was stage ib (t2a, n0, m0) at initial diagnosis, but with subsequent progression to stage alfredo (m1b). He also has hereditary hemochromatosis. ; Additional info: Restaging TECHNIQUE: Imaging protocol: Computed tomography of the abdomen and pelvis without contrast. Radiation optimization: All CT scans at this facility use at least one of these dose optimization techniques: automated exposure control; mA and/or kV adjustment per patient size (includes targeted exams where dose is matched to clinical indication); or iterative reconstruction. REPORTING DATA: Count of CT and Cardiac NM exams in prior 12 months: This patient has received 5 known CTs and 0 known cardiac nuclear medicine studies in the 12 months prior to the current study. COMPARISON: CT chest abdpel w/*[id number] 06/02/2022 2:14 PM RADIATION DOSE METRICS: Total DLP (mGy-cm): 549.16 FINDINGS: Detailed evaluation of the abdominal and pelvic viscera is somewhat limited in the absence of intravenous contrast. Liver: Stable nodular hypodense lesions in the liver, which were better visualized on the previous contrast enhanced exam, including a 14 mm left lobe cyst. Gallbladder and bile ducts: Cholelithiasis. Pancreas: No pancreatic mass or ductal dilatation. Spleen: Spleen upper limits of normal size. Adrenal glands: Unremarkable adrenals. Kidneys and ureters: Normal renal morphology. No hydronephrosis. Mild bilateral infiltration of perinephric fat. Stomach and bowel: Dilated contrast filled stomach with mild antroduodenal wall thickening. Prominent stool and scattered diverticula. 6 cm segmental luminal narrowing with mild wall thickening in the transverse colon. Appendix: No acute appendicitis. Intraperitoneal space: No significant free fluid. Vasculature: Vascular calcification. No abdominal aortic aneurysm. Lymph nodes: Subcentimeter lymph nodes. Urinary bladder: Bladder wall thickening. Reproductive: Unremarkable as visualized. Bones/joints: Left hip arthroplasty. Degenerative change and lumbar disc bulging. Soft tissues: Small fat containing umbilical herni and inguinal hernias. Infiltration of subcutaneous fat about the lateral aspect of the postoperative left hip. Stable 1.7 cm ovoid lytic lesion with sclerotic margins in the proximal right femur. Injection granuloma. CT/[place] [id number] IMPRESSION: Stable appearance of the chest, not significantly changed from 06/02/22 IMPRESSION: 1. 6 cm segmental luminal narrowing with mild wall thickening in the transverse colon. 2. Bladder wall thickening. 3. Additional findings as described above.
== END 2022-09-15 14:40 | disposition home or self-care (01) ==
PROVIDERS: PCP Family Medicine; Visit Provider Internal Medicine Medical Oncology
DX: C34.11 Malignant neoplasm of upper lobe, right bronchus or lung (principal)
CPT/HCPCS: 71250; 74176; Q9967

== ENCOUNTER → 2022-10-14 14:44 | Outpatient (BNVA) | payer MEDICARE, SELFPAY | PROVIDERS: PCP Family Medicine; Visit Provider Surgery | DX: R93.89 Abnormal findings on diagnostic imaging of other specified body structures (principal) | CPT/HCPCS: 99203 ==

== ENCOUNTER 2022-10-16 11:19 | Oncology outpatient (recurring) (ONCR) | payer MEDICARE, SELFPAY ==
[2022-10-16 12:04] LABS: Basophils # 0.1 10^3/uL (0.0-0.1); Basophils % 0.8 %; Eosinophils # 0.4 10^3/uL (0.0-0.8); Eosinophils % 7.2 %; Hematocrit 49.5 % (42.0-52.0); Lymphocytes # 1.3 10^3/uL (0.8-4.8); Lymphocytes % 21.6 %; Mean Corpuscular HGB Conc 34.3 g/dL (30.0-36.0); Mean Corpuscular Hemoglobin 31.1 pg (28.0-34.0); Mean Corpuscular Volume 90.5 fl (80-94); Mean Platelet Volume 9.5 fL (7.4-10.4); Monocytes # 0.5 10^3/uL (0.2-0.9); Monocytes % 8.3 %; Neutrophils # 3.78 10^3/uL (1.8-7.7); Neutrophils % 61.8 %; Nucleated Red Blood Cells % 0 %; Platelet Count 175 10^3/cmm (130-400); Red Blood Count 5.47 10^6/uL (4.1-5.3); White Blood Count 6.1 10^3/uL (4.0-10.0)
[2022-10-16 12:38] LABS: Alanine Aminotransferase 14 U/L (0-41); Albumin Level 4.3 g/dL (3.5-5.2); Alkaline Phosphatase 45 U/L (40-130); Anion Gap 13.6 (5-19); Aspartate Amino Transferase 12 U/L (0-40); Blood Urea Nitrogen 21 mg/dL (8-23); Calcium 9.2 mg/dL (8.5-10.5); Carbon Dioxide 28 mmol/L (22-29); Chloride 101 mmol/L (98-107); Globulin 2.6 g/dL (1.3-4.6); Glucose 224 mg/dL (65-115); Osmolality Calculated 296 mOsm/kg (285-295); Potassium 4.6 mmol/L (3.5-5.1); Sodium 138 mmol/L (136-145); Thyroid Stimulating Hormone 3.61 uIU/mL (0.27-4.20); Total Bilirubin 1.1 mg/dL (0.15-1.2); Total Protein 6.9 g/dL (6.6-8.7)
== END 2022-10-19 23:59 | disposition home or self-care (01) ==
PROVIDERS: PCP Family Medicine; Visit Provider Internal Medicine Medical Oncology
DX: I82.622 Acute embolism and thrombosis of deep veins of left upper extremity (principal); C34.11 Malignant neoplasm of upper lobe, right bronchus or lung; C79.51 Secondary malignant neoplasm of bone; Z92.3 Personal history of irradiation; Z79.01 Long term (current) use of anticoagulants; Z79.02 Long term (current) use of antithrombotics/antiplatelets; Z90.2 Acquired absence of lung [part of]; M25.552 Pain in left hip; E03.9 Hypothyroidism, unspecified
CPT/HCPCS: 36415; 80053; 84443; 85025; 99214

== ENCOUNTER → 2022-10-17 11:17 | Outpatient (BNVA) | payer MEDICARE, SELFPAY | PROVIDERS: PCP Family Medicine; Visit Provider Otolaryngology | DX: H90.3 Sensorineural hearing loss, bilateral (principal); H90.0 Conductive hearing loss, bilateral; H61.23 Impacted cerumen, bilateral | CPT/HCPCS: 69210; 99212 ==

== ENCOUNTER 2022-11-02 10:12 | Emergency (ER) | payer MEDICARE, SELFPAY ==
[2022-11-02] VITALS (27 sets, daily range): BP systolic 109–136; BP diastolic 62–65; PULSE 66; TEMP 36.5; O2SAT 89–91; BMI 28.3
--- NOTE | 2022-11-02 10:27 | USR_ITS ---
PROCEDURE INFORMATION: Exam: US Duplex Left Lower Extremity Veins, Limited Exam date and time: 11/02/2022 11:42 AM Age: 82 years old Clinical indication: Other: Pain; Additional info: Possible blood clot TECHNIQUE: Imaging protocol: Real-time duplex ultrasound of the left extremity with 2-D parra scale, color Doppler flow and spectral waveform analysis including responses to compression and other maneuvers (when performed) with image documentation. Limited exam focused on the left lower extremity veins. COMPARISON: US CV venous duplex [facility] [id number] 06/18/2022 3:16 AM FINDINGS: Left deep veins: Hypoechoic, nonocclusive thrombus in the proximal profunda femoral, femoral, popliteal posterior tibial and peroneal veins. The common femoral vein is patent without thrombus. Left superficial veins: Unremarkable. Saphenofemoral junction is patent without thrombus. Soft tissues: Unremarkable. US/CV venous duplex [facility] [id number] IMPRESSION: Hypoechoic, nonocclusive thrombus in the proximal profunda femoral, femoral, popliteal, posterior tibial and peroneal veins.
--- NOTE | 2022-11-02 18:13 | ED_ITS ---
HPI - Extremity Problem General: Chief complaint: Extremity Problem,Nontraumatic Stated complaint: left leg swelling Time Seen by Provider: 11/02/22 11:16 Source: patient and family Mode of arrival: ambulatory Limitations: no limitations History of Present Illness: Patient presents to the emergency department today for evaluation treatment of left leg pain. Patient reports noticing pain and discomfort for a day or 2 but, had him come in for evaluation because he does have a history of vascular surgery in that leg. Had vein grafting in that leg greater than 15 years ago for a bypass. Patient is prescribed to anticoagulation medications but, states yesterday he did not receive his Plavix because he is supposed to be having a colonoscopy on Thursday and is supposed to be stopping his anticoagulation. was concerned as he was having pain with ambulation and weightbearing and noticed some increase in swelling in the lower extremity and ankle. Patient is not noticing any chest pain or shortness of breath. Review of Systems General: Reports: 10 or more systems reviewed and unremarkable except in HPI and below PFSH ED PFSH: Medical History Allergic rhinitis BPH (benign prostatic hyperplasia) Carotid artery disease Celiac artery stenosis Closed intertrochanteric fracture of left hip COPD (chronic obstructive pulmonary disease) Coronary artery disease DJD (degenerative joint disease) GERD (gastroesophageal reflux disease) Gout Hereditary hemochromatosis Hyperlipidemia Hypertension Metastatic non-small cell lung cancer Obstructive sleep apnea Peripheral arterial disease with history of revascularization Peripheral neuropathy Thromboembolism 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, 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 Type 2 diabetes mellitus Surgical History H/O arterial bypass of lower limb (1999) right leg History of left hip hemiarthroplasty (03/17/19) History of lobectomy of lung (04/29/17) right upper lobe lobectomy with mediastinal lymph node biopsy History of PTCA History of quadruple bypass (1996) History of tonsillectomy and adenoidectomy Hx of appendectomy Hx of cataract extraction Family History Mother Diabetes Chronic kidney disease (CKD) Brother CAD (coronary artery disease) Cancer Diabetes Son CAD (coronary artery disease) Denies family history of Clotting disorder Dementia Suicide Anesthesia complication Bleeding disorder Lung disease Stroke Social History Smoking and tobacco status: former smoker Quit status (tobacco): has quit using tobacco Year quit tobacco: 1996 Former quit date comment: smoked x 30+ years Alcohol intake: never Substance/Drug Use: never Lives independently: Yes Household members: spouse Special jazlyn needs: No Physical Exam Const: COMMON NORMALS: no acute distress, patient oriented x3 and alert HENMT: COMMON NORMALS: normocephalic, atraumatic and hearing grossly normal bilaterally HEAD & SCALP: normocephalic and atraumatic Eye: COMMON NORMALS: Equal, round and reactive pupils present, EOMs intact bilaterally and conjunctivae normal CONJUNCTIVA: Yes conjunctivae normal PUPIL: Yes Equal, round and reactive pupils present Neck/C-Spine: COMMON NORMALS: full ROM and no JVD Lymph: LYMPHATIC: no lymphadenopathy noted Resp: COMMON NORMALS: normal respiratory effort, No retractions and No use of accessory muscles Cardio: COMMON NORMALS: no JVD and regular rate RATE: regular rate Extremity: NARRATIVE EXTREMITY EXAM: Patient does have some mild swelling in the left leg compared to the right. Patient has 1+ pitting edema on the lateral side of the left ankle and lateral side of the left foot. Patient has strong arterial pulses auscultated on Dopp ler here in the ER. Patient is weightbearing and ambulatory here in the ER. Neuro: COMMON NORMALS: patient oriented x3 SENSORIUM/ORIENTATION: Yes alert Psych: COMMON NORMALS: mental status grossly normal, Normal thought process present, cooperative and normal affect THOUGHT PROCESS: Normal thought process present Skin: COMMON NORMALS: no rashes or lesions noted and turgor normal GENERAL SKIN EXAM: no rashes or lesions noted and turgor normal Course Vital Signs: Vital signs: Vital Signs Temperature 97.7 F 11/02/22 10:23 Pulse Rate 66 11/02/22 10:23 Blood Pressure 136/65 11/02/22 13:35 Pulse Oximetry 91 11/02/22 11:40 Oxygen Delivery Me thod Room Air 11/02/22 10:23 MDM - Extremity (Nontraumatic) Medical Decision Making Patient presents today for evaluation treatment of worsening left lower extremity pain. Patient is currently on anticoagulation as above, did not have Plavix yesterday as he is preparing for a colonoscopy on Thursday. Ultrasound revealed an extensive DVT without total occlusion found here in the ER today. I did speak with Dr. Thibodeaux who recommended patient return back to all of his anticoagulation and follow-up with his primary care doctor to discuss the development of a DVT and to reschedule his colonoscopy. Strict return precautions discussed including any signs of chest pain, shortness of breath, dizziness or syncope. Discussed this recommendation with the patient who verbalizes understanding and agreement to the treatment plan. Differential Diagnosis Likely gout, cellulitis, superficial thrombophlebitis, lower extremity edema and deep vein thrombosis of lower extremity Lab Data Radiology Impressions Venous Duplex 11/02/22 10:27 IMPRESSION: Hypoechoic, nonocclusive thrombus in the proximal profunda femoral, femoral, popliteal, posterior tibial and peroneal veins. ADDENDUM: 11/02/22 1308 ADDENDUM: THIS REPORT CONTAINS FINDINGS THAT MAY BE CRITICAL TO PATIENT CARE. The findings were verbally communicated via telephone conference with Danna Yepez at 1:05 PM CDT on 11/02/2022. The findings were acknowledged and understood. Discharge Plan Discharge Patient Disposition: Home Clinical Impression: Deep vein thrombosis (DVT) of left lower extremity Condition: Stable Prescriptions: No Action Ozempic 0.25 mg or 0.5 mg(2 mg/1.5 mL) pen injector 0.25 mg SUBCUT .weekly hydrocodone-acetaminophen 5-325 mg tablet 1 tab PO Q4H PRN (Reason: pain) 30 Days Qty: 120 0RF tamsulosin [Flomax] 0.4 mg capsule 0.4 mg PO DAILY Qty: 90 3RF fluticasone propionate [Flonase Allergy Relief] 50 mcg/actuation spray,suspension 2 spray INTRANASAL DAILY PRN (Reason: Nasal Congestion) Qty: 16 4RF allopurinol 300 mg tablet See Rx Instructions .ROUTE .COMPLEX Qty: 90 0RF Dose Instruction: TAKE 1 TABLET EVERY DAY AT 8 AM Rx Instructions: TAKE 1 TABLET EVERY DAY AT 8 AM lovastatin 40 mg tablet See Rx Instructions .ROUTE .COMPLEX Qty: 180 0RF Dose Instruction: TAKE 1 TABLET TWICE DAILY AT 8:00 AM 6:00 PM Rx Instructions: TAKE 1 TABLET TWICE DAILY AT 8:00 AM 6:00 PM enoxaparin [Lovenox] 80 mg/0.8 mL syringe 80 mg SUBCUT Q12H Qty: 48 3RF carvedilol 25 mg tablet See Rx Instructions .ROUTE .COMPLEX Qty: 180 0RF Dose Instruction: TAKE 1 TABLET TWICE DAILY AT 8:00 AM AND 6:00 PM Rx Instructions: TAKE 1 TABLET TWICE DAILY AT 8:00 AM AND 6:00 PM meclizine 25 mg tablet See Rx Instructions .ROUTE .COMPLEX Qty: 180 0RF Dose Instruction: TAKE 1 TABLET THREE TIMES DAILY Rx Instructions: TAKE 1 TABLET THREE TIMES DAILY gabapentin 300 mg capsule 300 mg PO BEDTIME@1800 Qty: 90 0RF (DME) blood-glucose meter [True Metrix Air Glucose Meter] Misc See Rx Instructions .Route Qty: 1 0RF Rx Instructions: As directed (DME) lancets [TRUEplus Lancets] 33 gauge misc See Rx Instructions .Route Qty: 100 3RF Rx Instructions: As directed ofloxacin 0.3 % drops 2 drp otic (ear) BID 360 Days Qty: 10 12RF Rx Instructions: Apply 2 drops to right ear twice daily Plavix 75 mg tablet 75 mg PO BID Qty: 180 0RF ezetimibe [Zetia] 10 mg tablet 10 mg PO DAILY Qty: 90 3RF vitamin D55-aoopo acid 0.5-1 mg Tablet 1 tab PO DAILY@0800 cholecalciferol (vitamin D3) [Vitamin D3] 2,000 unit Tablet 2,000 unit PO DAILY@0800 omega 6-qyp-aga-fish oil [Fish Oil] 1,000 mg (120 mg-180 mg) Capsule 2 cap PO BID Jardiance 25 mg tablet 25 mg PO DAILY@0800 cetirizine 10 mg Tablet 5 mg PO DAILY PRN (Reason: Allergy Symptoms) Discharge Orders: Discharge ED (Routine); Ordered 11/02/22 Ordered By: Danna Yepez Referrals: Silver Alvarez DO [Primary Care Provider] - Discharge Diet: Usual diet Discharge Activity: Limit activity as instructed Patient Instructions: Deep Vein Thrombosis (ED) Activity Restrictions/Additional Instructions: Ultrasound imaging of your left leg does reveal formation of a blood clot. While it is not completely occluded, it does affect a large portion of your leg. After speaking to the emergency room physician on your care team this afternoon, it is recommended that you continue taking both of the antico agulation medications you have at home and calling your doctor tomorrow to discuss rescheduling your colonoscopy. We also recommend you have a follow-up with your primary care doctor as you may require some adjusting of your anticoagulation medication during this time. If you develop any signs of chest pain, shortness of breath, difficulty breathing, dizziness or lightheadedness or, develop any sudden and significant swelling or redness of your left lower extremity you need to be seen and reevaluated through the ER. Coding Level of Care Code ED Animal Shelter Worker for Moises Sam
== END 2022-11-02 13:41 | disposition home or self-care (01) ==
PROVIDERS: Emergency Provider Physician Assistant; PCP Family Medicine
DX: I82.412 Acute embolism and thrombosis of left femoral vein (principal); I82.432 Acute embolism and thrombosis of left popliteal vein; I82.442 Acute embolism and thrombosis of left tibial vein; I82.452 Acute embolism and thrombosis of left peroneal vein; Z79.02 Long term (current) use of antithrombotics/antiplatelets; Z87.891 Personal history of nicotine dependence; Z90.2 Acquired absence of lung [part of]; J44.9 Chronic obstructive pulmonary disease, unspecified; I25.10 Atherosclerotic heart disease of native coronary artery without angina pectoris; E78.5 Hyperlipidemia, unspecified; I10 Essential (primary) hypertension; Z85.118 Personal history of other malignant neoplasm of bronchus and lung; E11.9 Type 2 diabetes mellitus without complications
CPT/HCPCS: 93971; 99284

== ENCOUNTER → 2022-11-04 11:13 | Outpatient (BNVA) | payer MEDICARE, SELFPAY | PROVIDERS: PCP Family Medicine; Visit Provider Nurse Practitioner Family | DX: Z96.642 Presence of left artificial hip joint (principal); M70.62 Trochanteric bursitis, left hip | CPT/HCPCS: 73502; 99214 ==

== ENCOUNTER 2022-11-08 05:53 | Outpatient (CLI) | payer MEDICARE, SELFPAY ==
--- NOTE | 2022-11-08 11:00 | PETR_ITS ---
PROCEDURE INFORMATION: Exam: PET/CT Skull Base to Mid-thigh Exam date and time: 11/08/2022 12:17 PM Age: 82 years old Clinical indication: Right lung cancer. Follow-up oncological assessment; Prior surgery; Surgery date: 6+ months; Surgery type: RT lung, heart, appy, left hip; abnormal CT scan, bilateral hip pain; LABS AND CLINICAL REPORTS: Glucose: 167 mg/dl Treatment strategy for malignancy (PET staging): Restaging (PS) TECHNIQUE: Imaging protocol: Following at least four-hour fasting and following the injection of radiopharmaceutical, low dose CT images were obtained. Then, PET images were obtained. Attenuation corrected images were constructed using the CT scan. Fused images of PET and CT were reviewed. The standardized uptake values (SUV) reported below are maximum values within a region of interest, expressed in gm/ml. Exam includes orbital meatal line to mid-thigh. Radiopharmaceutical: 11.81 mCi F-18 FDG (Fluorodeoxyglucose), IV. Time of imaging post radiopharmaceutical administration: 51.7 minutes. Injection site: Right antecubital vein. COMPARISON: PET/CT 09/01/2019. FINDINGS: Brain: Visualized brain has normal physiologic uptake. Pharynx: No abnormal uptake. Larynx: No abnormal uptake. Lungs, pleura and trachea: Status post right upper lobectomy. Moderate elevation of the right hemidiaphragm, 6 cm above the left hemidiaphragm, is probably due to the right upper lobectomy. On the comparison CT chest on 06/02/2022, there was a 5.2 x 2.5 mm noncalcified pulmonary nodule in the left upper lobe on series 6, image 22. It is seen on series 3, image 49 of the current study, but is too small to be detectable on PET. It is only 4.1 x 2.5 mm. Heart: Heart size is normal. Heart size is normal. Coronary arteries: Coronary arteries are heavily calcified. Mediastinal space: No abnormal uptake. Liver: Multiple hepatic cysts. The largest, in hepatic segment 3, is 1.4 cm. Gallbladder and bile ducts: Cholelithiasis without evidence of cholecystitis. Pancreas: No abnormal uptake. Spleen: No abnormal uptake. Adrenal glands: No abnormal uptake. Kidneys and ureters: Normal physiologic uptake. Stomach and bowel: The 6 cm segmental luminal narrowing with mild wall thickening in the transverse colon , which was described in the report of the CT on 09/15/2022, was artifactual and probably due to peristalsis. It is unremarkable on today's study (series 3, image 86). The stomach is grossly normal, but evaluation of the gastric wall is limited because the stomach is decompressed. Numerous diverticula in the sigmoid and descending colon without evidence of diverticulitis. Urinary bladder: The bladder wall thickening , which was described in the report of the recent CT was probably artifactual due to underdistention. It is not thickened on today's study. Vasculature: There is severe calcific atherosclerosis of the abdominal aorta and iliac arteries. There is no aneurysm. Lymph nodes: No abnormal uptake. No lymphadenopathy in the head, neck, chest, abdomen, pelvis or extremities. Bones/joints: Left hip arthroplasty. The left quadratus femoris muscle is hypermetabolic (series 3, image 154). Its SUV max is 7.1. It may be due to muscle strain or overuse. Sternotomy closure with wire sutures. Moderate lumbar spinal degenerative changes. Soft tissues: The left quadratus femoris muscle is hypermetabolic (series 3, image 154). Its SUV max is 7.1. It may be due to muscle strain or overuse. [email or web address] [id number] IMPRESSION: 1. No evidence of new, recurrent or metastatic cancer. 2. Postoperative changes of a right upper lobectomy. 3. The 6 cm segmental luminal narrowing with mild wall thickening in the transverse colon , which was described in the report of the CT on 09/15/2022, was artifactual and probably due to peristalsis. It is unremarkable on today's study. 4. The bladder wall thickening , which was described in the report of the recent CT was probably artifactual due to underdistention. It is not thickened on today's study. 5. Left hip arthroplasty. The left quadratus femoris muscle is hypermetabolic (SUV max 7.1). It may be due to muscle strain or overuse related to the arthroplasty. 6. Cholelithiasis without evidence of cholecystitis.
== END 2022-11-08 05:54 | disposition home or self-care (01) ==
PROVIDERS: Visit Provider Internal Medicine Medical Oncology
DX: C34.11 Malignant neoplasm of upper lobe, right bronchus or lung (principal); Z90.2 Acquired absence of lung [part of]; K80.20 Calculus of gallbladder without cholecystitis without obstruction; M25.551 Pain in right hip; M25.552 Pain in left hip; R93.89 Abnormal findings on diagnostic imaging of other specified body structures; Z96.642 Presence of left artificial hip joint
CPT/HCPCS: 78815; A9552

== ENCOUNTER 2022-11-11 10:18 | Outpatient (RCR) | payer MEDICARE, SELFPAY | END 2022-11-19 23:59 | disposition home or self-care (01) | LOC: SPT 10:18 | PROVIDERS: Visit Provider Nurse Practitioner Family | DX: Z47.89 Encounter for other orthopedic aftercare (principal) | CPT/HCPCS: 97110; 97161 ==

== ENCOUNTER 2022-11-20 06:00 | Outpatient (RCR) | payer MEDICARE, SELFPAY | END 2022-12-19 23:59 | disposition home or self-care (01) | LOC: SPT 06:00 | PROVIDERS: PCP Family Medicine; Visit Provider Nurse Practitioner Family | DX: Z47.89 Encounter for other orthopedic aftercare (principal) | CPT/HCPCS: 97110 ==

== ENCOUNTER 2022-11-20 13:54 | Emergency (ER) | payer OTHER, SELFPAY ==
[2022-11-20 14:10] VITALS: BP 142/61; PULSE 65; RESP 18; TEMP 36.7; O2SAT 91
--- NOTE | 2022-11-20 14:29 | XR_ITS ---
WS: [id number] Exam: XR chest 1V portable [id number] Date/Time of Exam: 11/20/2022 2:29 PM Reason For Exam: confusion Comparison the eighth 10/12/2019. The lungs are fully expanded. Chronic changes in the bilateral lower lung zones. Chronic eventration of the right diaphragm. Heart size is normal. The mediastinum is normal in contour. Signs of previous CABG surgery. Bony structures are intact. XR/XR chest 1V portable [id number] IMPRESSION: 1. Chronic pulmonary changes. No acute process identified.
[2022-11-20 14:52] LABS: Basophils % 0.7 %; Eosinophils # 0.3 10^3/uL (0.0-0.8); Eosinophils % 6.7 %; Hematocrit 49.5 % (42.0-52.0); Hemoglobin 16.6 g/dL (11.7-16.6); Lymphocytes % 21.4 %; Mean Corpuscular HGB Conc 33.5 g/dL (30.0-36.0); Mean Corpuscular Hemoglobin 30.2 pg (28.0-34.0); Mean Platelet Volume 9.6 fL (7.4-10.4); Monocytes # 0.4 10^3/uL (0.2-0.9); Monocytes % 8.3 %; Neutrophils # 2.81 10^3/uL (1.8-7.7); Neutrophils % 62.7 %; Nucleated Red Blood Cells % 0 %; Platelet Count 173 10^3/cmm (130-400); Red Cell Distribution Width 13.9 % (12.1-15.1); White Blood Count 4.5 10^3/uL (4.0-10.0)
[2022-11-20 14:53] LABS: Add Urine Microscopic? NO; Charge for UA Resulting for Rev
--- NOTE | 2022-11-20 14:58 | CT_ITS ---
WS: [id number] CT HEAD NONCONTRAST HISTORY: confusion TECHNIQUE: Contiguous axial imaging performed through the brain in 2.5 mm imaging. Bone and soft tiss ue windows. Sagittal and coronal reformats reviewed. All CT scans at [facility] use at least one of these dose optimization techniques: automated exposure control; mA and/or kV adjustment per pa tient size (includes targeted exams where dose is matched to clinical indication); or iterative recon struction. DLP: 1130.05 mGy.cm COMPARISON: 11/20/2020 No acute intracranial hemorrhage, midline shift or mass effect. Moderate atrophy and small vessel ischemic disease. Small lacunar infarct in the RIGHT basal ganglia. Ventricles: Normal size with no hydrocephalus. No inferior displacement of cerebellar tonsils. Paranasal sinuses: As visualized are clear. Mastoid air cells: Well pneumatized. Calvarium and scalp: Skull is intact with no soft tissue edema or swelling. Moderate atherosclerotic plaque within the distal vertebral arteries and the intracranial carotid art eries. CT/CT head wo con* [id number] IMPRESSION: 1. No acute intracranial hemorrhage or edema. 2. Atrophy and small vessel ischemic disease and remote RIGHT basal ganglia la cunar infarct are stable.
--- NOTE | 2022-11-20 14:58 | ECG_ITS ---
[facility] Test Date: 2022-11-20 Pat Name: Lynnette Sevilla Department: Room: Gender: Male Manager Of Organizational Development: : 1940 Requested By: Angela Tierney Order Number: [id number] Amaya MD: Joaquín Nagel M.D. Measurements Intervals [place] Rate: 60 P: 20 MT: 184 QRS: 40 QRSD: 109 T: 89 QT: 384 QTc: 386 Interpretive Statements SINUS RHYTHM NONSPECIFIC ST & T-WAVE ABNORMALITY Compared to ECG 06/03/2022 10:27:27 Myocardial infarct finding no longer present Poor R-wave progression no longer present T-wave abnormality still present Electronically Signed On 11-20-2022 17:36:17 CDT by Joaquín Nagel M.D. [email or web address]
--- NOTE | 2022-11-20 15:09 | ED_ITS ---
HPI - Altered Mental Status General: Chief Complaint: Altered Mental Status Stated Complaint: confusion Time Seen by Provider: 11/20/22 14:51 Source: patient Mode of arrival: ambulatory Limitations: no limitations History of Present Illness: 82-year-old male who states that he woke up this morning and when he woke up he is quite confused. He states that he may have some mild dementia possibly but states that when he woke up this morning did not know where he was did not know that was his house his states that this lasted for a few hours but since resolved he states he feels completely normal he is at his baseline agrees as well he has had no slurred speech no weakness he is ambulatory without any problems. Denies any headache or fever. Review of Systems Const: Denies: fever(s), chills, body aches or change in appetite Eyes: Denies: blurry vision or eye discomfort ENMT: Denies: throat pain or dental pain Card: Denies: chest pain Resp: Denies: dyspnea GI: Denies: abdominal pain, nausea, vomiting or diarrhea Musc: Denies: neck pain or back pain Skin/Breast: Denies: rash Neuro: Reports: confusion; Denies: headache(s) PFSH ED PFSH: Medical History Allergic rhinitis BPH (benign prostatic hyperplasia) Carotid artery disease Celiac artery stenosis Closed intertrochanteric fracture of left hip COPD (chronic obstructive pulmonary disease) Coronary artery disease DJD (degenerative joint disease) GERD (gastroesophageal reflux disease) Gout Hereditary hemochromatosis Hyperlipidemia Hypertension Metastatic non-small cell lung cancer Obstructive sleep apnea Peripheral arterial disease with history of revascularization Peripheral neuropathy Thromboembolism 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, 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 Type 2 diabetes mellitus Surgical History H/O arterial bypass of lower limb (1999) right leg History of left hip hemiarthroplasty (03/17/19) History of lobectomy of lung (04/29/17) right upper lobe lobectomy with mediastinal lymph node biopsy History of PTCA History of quadruple bypass (1996) History of tonsillectomy and adenoidectomy Hx of appendectomy Hx of cataract extraction Family History Mother Diabetes Chronic kidney disease (CKD) Brother CAD (coronary artery disease) Cancer Diabetes Son CAD (coronary artery disease) Denies family history of Clotting disorder Dementia Suicide Anesthesia complication Bleeding disorder Lung disease Stroke Social History Smoking and tobacco status: former smoker Quit status (tobacco): has quit using tobacco Year quit tobacco: 1996 Former quit date comment: smoked x 30+ years Alcohol intake: never Substance/Drug Use: never Lives independently: Yes Household members: spouse Special jazlyn needs: No Physical Exam Const: COMMON NORMALS: no acute distress, average body habitus and patient oriented x3 HENMT: COMMON NORMALS: normocephalic and atraumatic HEAD & SCALP: normocephalic and atraumatic Eye: COMMON NORMALS: Equal, round and reactive pupils present, EOMs intact bilaterally and conjunctivae normal CONJUNCTIVA: Yes conjunctivae normal PUPIL: Yes Equal, round and reactive pupils present Neck/C-Spine: COMMON NORMALS: supple Chest: COMMONS NORMALS: normal inspection of the chest Resp: COMMON NORMALS: normal respiratory effort Cardio: COMMON NORMALS: regular rate and regular rhythm RATE: regular rate RHYTHM: regular rhythm GI: COMMON NORMALS: Normal to inspection, nondistended, normoactive bowel sounds present, Soft to palpation, non-tender and No hepatosplenomegaly present PALPATION: Yes Soft to palpation and Yes No hepatosplenomegaly present Extremity: COMMON NORMALS: normal to inspection Neuro: COMMON NORMALS: patient oriented x3 CRANIAL NERVES: Yes CN normal except as noted SPEECH: speech normal GAIT: Yes Normal gait present MOTOR EXAM: 5/5 motor strength present throughout Psych: COMMON NORMALS: mental status grossly normal Skin: COMMON NORMALS: no rashes or lesions noted GENERAL SKIN EXAM: no rashes or lesions noted Course Vital Signs: Vital signs: Vital Signs Temperature 98.1 F 11/20/22 14:10 Pulse Rate 65 11/20/22 14:10 Respiratory Rate 18 11/20/22 14:10 Blood Pressure 142/61 11/20/22 14:10 Pulse Oximetry 91 11/20/22 14:10 Oxygen Delivery Me thod Room Air 11/20/22 14:10 MDM - Altered Mental Status Medical Decision Making Patient presents here with some confusion since resolved he has had no signs of a stroke blood work head CT here are all normal he is wanting to go home at this point his blood sugar is improved as well he is well-appearing here with no focal deficits he is ANO x4 and at his baseline he is stable for discharge he did inform he needs to follow-up his PCP and return to the ER if he has anything worsening he understands agrees to plan. Medical Records I reviewed the patient's medical records. Lab Data I reviewed the patient's lab results. 11/20/22 14:43 11/20/22 14:43 Radiology Impressions Chest X-Ray 11/20/22 14:29 IMPRESSION: 1. Chronic pulmonary changes. No acute process identified. Head CT 11/20/22 14:58 IMPRESSION: 1. No acute intracranial hemorrhage or edema. 2. Atrophy and small vessel ischemic disease and remote RIGHT basal ganglia lacunar infarct are stable. Laboratory Results WBC 4.5 10^3/uL (4.0-10.0) 11/20/22 14:43 RBC 5.50 10^6/uL (4.1-5.3) H 11/20/22 14:43 Hgb 16.6 g/dL (11.7-16.6) 11/20/22 14:43 Hct 49.5 % (42.0-52.0) 11/20/22 14:43 MCV 90.0 fl (80-94) 11/20/22 14:43 MCH 30.2 pg (28.0-34.0) 11/20/22 14:43 MCHC 33.5 g/dL (30.0-36.0) 11/20/22 14:43 RDW 13.9 % (12.1-15.1) 11/20/22 14:43 Plt Count 173 10^3/cmm (130-400) 11/20/22 14:43 MPV 9.6 fL (7.4-10.4) 11/20/22 14:43 Neut % (Auto) 62.7 % 11/20/22 14:43 Lymph % (Auto) 21.4 % 11/20/22 14:43 [place] % (Auto) 8.3 % 11/20/22 14:43 Eos % (Auto) 6.7 % 11/20/22 14:43 Baso % (Auto) 0.7 % 11/20/22 14:43 Neut # (Auto) 2.81 10^3/uL (1.8-7.7) 11/20/22 14:43 Lymph # (Auto) 1.0 10^3/uL (0.8-4.8) 11/20/22 14:43 [place] # (Auto) 0.4 10^3/uL (0.2-0.9) 11/20/22 14:43 Eos # (Auto) 0.3 10^3/uL (0.0-0.8) 11/20/22 14:43 Baso # (Auto) 0.0 10^3/uL (0.0-0.1) 11/20/22 14:43 Nucleated RBC % (auto) 0 % 11/20/22 14:43 Nucleated RBCs # 0.0 /100WBC 11/20/22 14:43 PT 13.00 SECONDS (12.1-14.9) 11/20/22 14:43 INR 0.95 (0.8-1.2) 11/20/22 14:43 Sodium 133 mmol/L (136-145) L 11/20/22 14:43 Potassium 4.2 mmol/L (3.5-5.1) 11/20/22 14:43 Chloride 97 mmol/L (98-107) L 11/20/22 14:43 Carbon Dioxide 27 mmol/L (22-29) 11/20/22 14:43 Anion Gap 13.2 (5-19) 11/20/22 14:43 BUN 20 mg/dL (8-23) 11/20/22 14:43 Creatinine 0.9 mg/dL (0.7-1.2) 11/20/22 14:43 GFR Calculation Not Reportable 11/20/22 14:43 Glucose 411 mg/dL (65-115) H 11/20/22 14:43 POC Glucose 338 mg/dL (70-110) H 11/20/22 16:19 Calculated Osmolality 296 mOsm/kg (285-295) H 11/20/22 14:43 Calcium 9.6 mg/dL (8.5-10.5) 11/20/22 14:43 Total Bilirubin 0.9 mg/dL (0.15-1.2) 11/20/22 14:43 AST 12 U/L (0-40) 11/20/22 14:43 ALT 15 U/L (0-41) 11/20/22 14:43 Alkaline Phosphatase 43 U/L (40-130) 11/20/22 14:43 Ammonia 18 umol/L (16-60) 11/20/22 14:43 Total Protein 6.9 g/dL (6.6-8.7) 11/20/22 14:43 Albumin 4.2 g/dL (3.5-5.2) 11/20/22 14:43 Globulin 2.7 g/dL (1.3-4.6) 11/20/22 14:43 Urine Color Light yellow (Yellow) 11/20/22 14:00 Urine Appearance Clear (CLEAR) 11/20/22 14:00 Urine pH 5 (5-7) 11/20/22 14:00 Ur Specific [place] 1.015 (1.005-1.030) 11/20/22 14:00 Urine Protein Neg (Negative) 11/20/22 14:00 Urine Glucose (UA) 4+ (Normal) H 11/20/22 14:00 Urine Ketones Negative (Negative) 11/20/22 14:00 Urine Blood Neg (Negative) 11/20/22 14:00 Urine Nitrate Negative (Negative) 11/20/22 14:00 Urine Bilirubin Neg (Negative) 11/20/22 14:00 Urine Urobilinogen Norm mg/dL (Negative) 11/20/22 14:00 Ur Leukocyte Esterase Negative (Negative) 11/20/22 14:00 EKG Data EKG 1: I personally reviewed and interpreted this EKG as follows: EKG interpretation date: 11/20/22 EKG interpretation time: 15:18 Interpretation: nsr hr [address] or t wave abnormalities qrs 109 qtc 386 Discharge Plan Discharge Patient Disposition: Home Clinical Impression: Confusion, Hyperglycemia Condition: Stable Prescriptions: No Action Ozempic 0.25 mg or 0.5 mg(2 mg/1.5 mL) pen injector 0.25 mg SUBCUT .weekly hydrocodone-acetaminophen 5-325 mg tablet 1 tab PO Q4H PRN (Reason: pain) 30 Days Qty: 120 0RF tamsulosin [Flomax] 0.4 mg capsule 0.4 mg PO DAILY Qty: 90 3RF enoxaparin [Lovenox] 80 mg/0.8 mL syringe 80 mg SUBCUT Q12H Qty: 48 3RF gabapentin 300 mg capsule 300 mg PO BEDTIME@1800 Qty: 90 0RF (DME) blood-glucose meter [True Metrix Air Glucose Meter] Misc See Rx Instructions .Route Qty: 1 0RF Rx Instructions: As directed (DME) lancets [TRUEplus Lancets] 33 gauge misc See Rx Instructions .Route Qty: 100 3RF Rx Instructions: As directed ofloxacin 0.3 % drops 2 drp otic (ear) BID 360 Days Qty: 10 12RF Rx Instructions: Apply 2 drops to right ear twice daily Plavix 75 mg tablet 75 mg PO BID Qty: 180 0RF ezetimibe [Zetia] 10 mg tablet 10 mg PO DAILY Qty: 90 3RF vitamin [id number] acid 0.5-1 mg Tablet 1 tab PO DAILY@0800 cholecalciferol (vitamin D3) [Vitamin D3] 2,000 unit Tablet 2,000 unit PO DAILY@0800 omega [id number]-[id number]-fish oil [Fish Oil] 1,000 mg (120 mg-180 mg) Capsule 2 cap PO BID Jardiance 25 mg tablet 25 mg PO DAILY@0800 cetirizine 10 mg Tablet 5 mg PO DAILY PRN (Reason: Allergy Symptoms) carvedilol 25 mg tablet 25 mg PO BID lovastatin 40 mg tablet 40 mg PO BID meclizine 25 mg tablet 25 mg PO TID allopurinol 300 mg tablet 300 mg PO DAILY fluticasone propionate 50 mcg/actuation spray,suspension 2 spray intranasal DAILY PRN (Reason: Allergy Symptoms) Discharge Orders: Discharge ED (Routine); Ordered 11/20/22 Ordered By: Angela Tierney Referrals: Silver Alvarez DO [Primary Care Provider] - 1-3 days Discharge Diet: Advance as tolerated and Resume prior tube feeds Patient Instructions: Altered Mental Status (ED), Diabetic Hyperglycemia (ED) Coding Level of Care Code ED Grades 7 8 Tutor for Moises Sam NIH stroke score NIHSS Level Of Consciousness - 1a: 0 Level Of Consciousness Questions - 1b: Both Correct Level Of Consciousness Commands - 1c: Both Correct Best Gaze - 2: Normal Visual [place] - 3: No Visual Loss Facial Palsy - 4: Normal Motor Arm Right - 5: No Drift Motor Arm Left - 5: No Drift Motor Leg Right - 6: No Drift Motor Leg Left - 6: No Drift Limb Ataxia - 7: Absent Sensory - 8: Normal Best Language - 9: No Aphasia Dysarthia - 10: Normal Extinction And Inattention - 11: 0 Score Total Score: 0
[2022-11-20 15:10] LABS: INR 0.95 (0.8-1.2)
[2022-11-20 15:11] LABS: Blood Urine Neg (Negative); Glucose Urine UA 4+ (Normal); Ketones Urine Negative (Negative); Nitrate Urine Negative (Negative); Protein Urine Neg (Negative); Specific Gravity, Urine 1.015 (1.005-1.030); Urine Appearance Clear (CLEAR); Urine Color Light yellow (Yellow); pH Urine 5 (5-7)
[2022-11-20 15:12] LABS: Bilirubin Urine Neg (Negative); Leukocyte Esterase Urine Negative (Negative); Urobilinogen Urine Norm (Negative)
[2022-11-20 15:18] LABS: Alanine Aminotransferase 15 U/L (0-41); Albumin Level 4.2 g/dL (3.5-5.2); Alkaline Phosphatase 43 U/L (40-130); Ammonia 18 umol/L (16-60); Anion Gap 13.2 (5-19); Aspartate Amino Transferase 12 U/L (0-40); Blood Urea Nitrogen 20 mg/dL (8-23); Calcium 9.6 mg/dL (8.5-10.5); Carbon Dioxide 27 mmol/L (22-29); Chloride 97 mmol/L (98-107); Globulin 2.7 g/dL (1.3-4.6); Glucose 411 mg/dL (65-115); Osmolality Calculated 296 mOsm/kg (285-295); Potassium 4.2 mmol/L (3.5-5.1); Sodium 133 mmol/L (136-145); Total Bilirubin 0.9 mg/dL (0.15-1.2); Total Protein 6.9 g/dL (6.6-8.7)
[2022-11-20] MEDS: insulin regular-human 100 units/1 mL 10 UNIT IVP (15:43)
[2022-11-20 16:23] LABS: Glucose Point of Care 338 mg/dL (70-110)
== END 2022-11-20 16:45 | disposition home or self-care (01) ==
PROVIDERS: Emergency Provider Emergency Medicine; PCP Family Medicine
DX: R41.0 Disorientation, unspecified (principal); E11.65 Type 2 diabetes mellitus with hyperglycemia; Z79.02 Long term (current) use of antithrombotics/antiplatelets; Z87.891 Personal history of nicotine dependence; J44.9 Chronic obstructive pulmonary disease, unspecified; I25.10 Atherosclerotic heart disease of native coronary artery without angina pectoris; E78.5 Hyperlipidemia, unspecified; I10 Essential (primary) hypertension; Z85.118 Personal history of other malignant neoplasm of bronchus and lung; E11.9 Type 2 diabetes mellitus without complications
CPT/HCPCS: 36415; 36416; 70450; 71045; 80053; 81003; 82140; 82962; 85025; 85610; 93005; 96374; 99285; J1815

== ENCOUNTER → 2022-11-25 07:51 | Outpatient (BNVA) | payer OTHER, SELFPAY | PROVIDERS: PCP Family Medicine; Visit Provider Podiatrist Foot & Ankle Surgery | DX: I73.9 Peripheral vascular disease, unspecified (principal); B35.3 Tinea pedis; L60.3 Nail dystrophy; E11.42 Type 2 diabetes mellitus with diabetic polyneuropathy; M67.472 Ganglion, left ankle and foot | CPT/HCPCS: 11721; 99213 ==

== ENCOUNTER 2023-01-01 13:43 | Oncology outpatient (recurring) (ONCR) | payer MEDICARE, SELFPAY ==
[2023-01-01 13:44] VITALS: BP 117/70; PULSE 76; RESP 18; TEMP 36.6; O2SAT 90
[2023-01-01 13:55] LABS: Basophils # 0.1 10^3/uL (0.0-0.1); Basophils % 1.1 %; Eosinophils # 0.4 10^3/uL (0.0-0.8); Eosinophils % 6.7 %; Hematocrit 49.4 % (42.0-52.0); Hemoglobin 16.5 g/dL (11.7-16.6); Lymphocytes # 1.1 10^3/uL (0.8-4.8); Lymphocytes % 21.4 %; Mean Corpuscular HGB Conc 33.4 g/dL (30.0-36.0); Mean Corpuscular Hemoglobin 30.1 pg (28.0-34.0); Mean Platelet Volume 9.1 fL (7.4-10.4); Monocytes # 0.5 10^3/uL (0.2-0.9); Monocytes % 9.4 %; Neutrophils # 3.21 10^3/uL (1.8-7.7); Neutrophils % 61.2 %; Nucleated Red Blood Cells % 0 %; Platelet Count 184 10^3/cmm (130-400); Red Blood Count 5.49 10^6/uL (4.1-5.3); Red Cell Distribution Width 14.1 % (12.1-15.1); White Blood Count 5.2 10^3/uL (4.0-10.0)
[2023-01-01 14:12] LABS: Alanine Aminotransferase 12 U/L (0-41); Albumin Level 4.2 g/dL (3.5-5.2); Alkaline Phosphatase 43 U/L (40-130); Anion Gap 15.3 (5-19); Aspartate Amino Transferase 13 U/L (0-40); Blood Urea Nitrogen 19 mg/dL (8-23); Calcium 9.2 mg/dL (8.5-10.5); Carbon Dioxide 25 mmol/L (22-29); Chloride 103 mmol/L (98-107); Globulin 2.8 g/dL (1.3-4.6); Glucose 187 mg/dL (65-115); Osmolality Calculated 295 mOsm/kg (285-295); Potassium 4.3 mmol/L (3.5-5.1); Sodium 139 mmol/L (136-145); Total Bilirubin 0.7 mg/dL (0.15-1.2)
== END 2023-01-19 23:59 | disposition home or self-care (01) ==
PROVIDERS: PCP Family Medicine; Visit Provider Internal Medicine Medical Oncology
DX: E03.9 Hypothyroidism, unspecified (principal); C34.11 Malignant neoplasm of upper lobe, right bronchus or lung; C79.51 Secondary malignant neoplasm of bone; Z90.2 Acquired absence of lung [part of]; Z96.642 Presence of left artificial hip joint; Z92.3 Personal history of irradiation; Z87.891 Personal history of nicotine dependence
CPT/HCPCS: 36415; 80053; 85025; 99214

== ENCOUNTER 2023-01-09 20:40 | Emergency (ER) | payer OTHER, SELFPAY ==
[2023-01-09 20:54] VITALS: BP 140/70; PULSE 77; RESP 18; TEMP 36.8; O2SAT 93; BMI 28.3
--- NOTE | 2023-01-09 21:34 | USR_ITS ---
PROCEDURE INFORMATION: Exam: US Duplex Left Lower Extremity Veins, Limited Exam date and time: 01/09/2023 9:50 PM Age: 82 years old Clinical indication: Pain; Leg, lower; Left; Prior surgery; Surgery date: 6+ months; Surgery type: Vein removed for heart surgery; Additional info: Leg pain TECHNIQUE: Imaging protocol: Real-time duplex ultrasound of the left extremity with 2-D parra scale, color Doppler flow and spectral waveform analysis including responses to compression and other maneuvers (when performed) with image documentation. Limited exam focused on the left lower extremity veins. COMPARISON: US CV venous duplex [facility] [id number] 11/02/2022 11:42 AM FINDINGS: Occlusive thrombus seen throughout the lower extremity from the common femoral vein through the superficial femoral vein, great saphenous vein, popliteal vein, and into the peroneal/calf veins. US/CV venous duplex [facility] [id number] IMPRESSION: Occlusive DVT noted throughout the lower extremity.
--- NOTE | 2023-01-09 23:01 | ED_ITS ---
Documented by User: Huber Patel DO 01/12/23 05:57 HPI - Extremity Problem General: Chief complaint: Extremity Injury, Lower Stated complaint: possible blood clot left leg,sob Time Seen by Provider: 01/09/23 21:34 Source: patient Mode of arrival: ambulatory History of Present Illness: 82-year-old male presents emergency room complaining of increasing left leg swelling and increasing shortness of breath with activity. He is chronically on oxygen history of lung cancer with previous resection is not currently being treated to be monitored by Dr. Chadwick for recurrence. Has a history of diabetes mellitus coronary disease he is on Lovenox. He previously was on Eliquis but failed this and was transition to Lovenox has had the DVT since May 2022. MD Complaint: extremity swelling Onset (ago): week(s) Pain Consistency: constant Location: left Quality: aching Radiation: none Relieving factors: nothing Exacerbating factors: weight bearing, walking, exertion and palpation Associated symptoms: Reports short of breath; Deny arthralgias, chest pain, fever(s), myalgias, rash or other Context: history of DVT Review of Systems Const: Reports: fatigue and malaise; Denies: fever(s) or chills ENMT: Denies: throat pain, ear or mastoid pain, nasal discharge or nasal congestion Card: Reports: dyspnea on exertion; Denies: chest pain, palpitations, irregular heart rhythm or edema Resp: Reports: dyspnea; Denies: productive cough or non-productive cough GI: Denies: abdominal pain, nausea, vomiting, hematemesis, coffee ground emesis, diarrhea, constipation, bloating, hematochezia or melena : Denies: flank pain, dysuria, urinary frequency or urinary urgency Skin/Breast: Denies: rash or pruritus PFS ED PFSH: Medical History Allergic rhinitis BPH (benign prostatic hyperplasia) Carotid artery disease Celiac artery stenosis Closed intertrochanteric fracture of left hip COPD (chronic obstructive pulmonary disease) Coronary artery disease DJD (degenerative joint disease) GERD (gastroesophageal reflux disease) Gout Hereditary hemochromatosis Hyperlipidemia Hypertension Metastatic non-small cell lung cancer Obstructive sleep apnea Peripheral arterial disease with history of revascularization Peripheral neuropathy Thromboembolism 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, 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 Type 2 diabetes mellitus Surgical History H/O arterial bypass of lower limb (1999) right leg History of left hip hemiarthroplasty (03/17/19) History of lobectomy of lung (04/29/17) right upper lobe lobectomy with mediastinal lymph node biopsy History of PTCA History of quadruple bypass (1996) History of tonsillectomy and adenoidectomy Hx of appendectomy Hx of cataract extraction Family History Mother Diabetes Chronic kidney disease (CKD) Brother CAD (coronary artery disease) Cancer Diabetes Son CAD (coronary artery disease) Denies family history of Clotting disorder Dementia Suicide Anesthesia complication Bleeding disorder Lung disease Stroke Social History Smoking and tobacco status: former smoker Quit status (tobacco): has quit using tobacco Year quit tobacco: 1996 Former quit date comment: smoked x 30+ years Alcohol intake: never Substance/Drug Use: never Lives independently: Yes Household members: spouse Special jazlyn needs: No Physical Exam Const: GENERAL APPEARANCE: cooperative and comfortable ORIENTATION/CONSCIOUSNESS: Yes awake, Yes oriented to person, Yes oriented to place and Yes oriented to time HENMT: COMMON NORMALS: normocephalic, atraumatic and hearing grossly normal bilaterally HEAD & SCALP: normocephalic and atraumatic Resp: COMMON NORMALS: normal respiratory effort, No retractions, No use of accessory muscles and clear to auscultation bilaterally AUSCULTATION: clear to auscultation bilaterally Cardio: COMMON NORMALS: regular rate, regular rhythm and No murmurs present (Cardio) RATE: regular rate RHYTHM: regular rhythm GI: COMMON NORMALS: Soft to palpation and No hepatosplenomegaly present AUSCULTATION: Yes normoactive bowel sounds PALPATION: Yes Soft to palpation, No Tenderness to palpation present (GI), No Guarding due to palpation present (GI) and Yes No hepatosplenomegaly present Extremity: COMMON NORMALS: normal to inspection, capillary refill normal, no clubbing, cyanosis or edema, no calf tenderness and no pedal edema Neuro: SENSORIUM/ORIENTATION: Yes oriented to person, Yes oriented to place and Yes oriented to time Skin: COMMON NORMALS: no rashes or lesions noted GENERAL SKIN EXAM: no rashes or lesions noted Course Vital Signs: Vital signs: Vital Signs Temperature 98.2 F 01/09/23 20:54 Pulse Rate 64 01/10/23 02:00 Respiratory Rate 16 01/10/23 02:00 Blood Pressure 139/70 01/10/23 02:00 Pulse Oximetry 94 01/10/23 02:00 Oxygen Delivery Me thod Nasal Cannula 01/10/23 02:00 Oxygen Flow Rate 2.5 01/10/23 02:00 MDM - Extremity (Nontraumatic) Medical Decision Making Patient presents with worsening DVT. The DVT date dates back to May 2022 despite being on Eliquis and subsequently Lovenox. The DVT has progressed and is fully occlusive on the left deep vein system additionally now he has heavy enough pulmonary embolism load that he has right heart strain. We do not have any physician available to place an inferior vena cava filter. Anticoagulation with heparin initiated. Conferred with Dr. Renae he is in agreement that transfer is appropriate for this patient as we do not have available staff for optimal care. Discussed with the patient and family. Awaiting final details of transfer. Case turned over to Dr. Tierney to complete the transfer logistics. Patient was excepted at [facility] by Dr. Carver for higher level care for vascular Differential Diagnosis Likely deep vein thrombosis of lower extremity Medical Records I reviewed the patient's medical records. Lab Data I reviewed the patient's lab results. 01/09/23 23:18 01/09/23 23:18 Radiology Impressions Venous Duplex 01/09/23 21:34 IMPRESSION: Occlusive DVT noted throughout the lower extremity. ADDENDUM: 01/09/232241 Findings were discussed with HUBER PATEL at 01/09/2023 10:40 PM CDT. Chest CTA 01/09/23 23:09 IMPRESSION: 1. Bilateral left greater than right segmental to subsegmental branch pulmonary emboli with mild right heart strain given an RV to LV ratio of approximately 1.25. 2. Cholelithiasis. 3. Several hepatic cysts. 4. Diverticulosis without diverticulitis. 5. Emphysematous changes. ADDENDUM: 01/10/23 0059 THIS REPORT CONTAINS FINDINGS THAT MAY BE CRITICAL TO PATIENT CARE. The findings were verbally communicated via telephone conference with HUBER PATEL at 12:57 AM CDT on 01/10/2023. The findings were acknowledged and understood. Laboratory Results WBC 6.4 10^3/uL (4.0-10.0) 01/09/23 23:18 RBC 5.67 10^6/uL (4.1-5.3) H 01/09/23 23:18 Hgb 17.1 g/dL (11.7-16.6) H 01/09/23 23:18 Hct 51.2 % (42.0-52.0) 01/09/23 23:18 MCV 90.3 fl (80-94) 01/09/23 23:18 MCH 30.2 pg (28.0-34.0) 01/09/23 23:18 MCHC 33.4 g/dL (30.0-36.0) 01/09/23 23:18 RDW 14.0 % (12.1-15.1) 01/09/23 23:18 Plt Count 172 10^3/cmm (130-400) 01/09/23 23:18 MPV 9.8 fL (7.4-10.4) 01/09/23 23:18 Neut % (Auto) 65.5 % 01/09/23 23:18 Lymph % (Auto) 17.3 % 01/09/23 23:18 [place] % (Auto) 10.7 % 01/09/23 23:18 Eos % (Auto) 5.3 % 01/09/23 23:18 Baso % (Auto) 0.9 % 01/09/23 23:18 Neut # (Auto) 4.21 10^3/uL (1.8-7.7) 01/09/23 23:18 Lymph # (Auto) 1.1 10^3/uL (0.8-4.8) 01/09/23 23:18 [place] # (Auto) 0.7 10^3/uL (0.2-0.9) 01/09/23 23:18 Eos # (Auto) 0.3 10^3/uL (0.0-0.8) 01/09/23 23:18 Baso # (Auto) 0.1 10^3/uL (0.0-0.1) 01/09/23 23:18 Nucleated RBC % (auto) 0 % 01/09/23 23:18 Nucleated RBCs # 0.0 /100WBC 01/09/23 23:18 PT 13.40 SECONDS (12.1-14.9) 01/09/23 23:18 INR 0.99 (0.8-1.2) 01/09/23 23:18 APTT 31.4 SECONDS (23.9-36.7) 01/09/23 23:18 Sodium 140 mmol/L (136-145) 01/09/23 23:18 Potassium 4.2 mmol/L (3.5-5.1) 01/09/23 23:18 Chloride 102 mmol/L (98-107) 01/09/23 23:18 Carbon Dioxide 26 mmol/L (22-29) 01/09/23 23:18 Anion Gap 16.2 (5-19) 01/09/23 23:18 BUN 23 mg/dL (8-23) 01/09/23 23:18 Creatinine 1.1 mg/dL (0.7-1.2) 01/09/23 23:18 GFR Calculation Not Reportable 01/09/23 23:18 Glucose 164 mg/dL (65-115) H 01/09/23 23:18 Calculated Osmolality 297 mOsm/kg (285-295) H 01/09/23 23:18 Calcium 9.4 mg/dL (8.5-10.5) 01/09/23 23:18 Discharge Plan Discharge Patient Disposition: Xfer Short-Term Hosp Clinical Impression: Pulmonary embolism, DVT (deep venous thrombosis), Malignant neoplasm of upper lobe, right bronchus or lung Condition: Stable Referrals: Silver Alvarez DO [Primary Care Provider] - Coding Level of Care Code ED Animal Health Technician for Chg Fwd Documented by User: Angela Tierney MD 01/10/23 02:16 HPI - Extremity Problem General: Chief complaint: Extremity Injury, Lower Stated complaint: possible blood clot left leg,sob Time Seen by Provider: 01/09/23 21:34 [facility] ED PFS: Medical History Allergic rhinitis BPH (benign prostatic hyperplasia) Carotid artery disease Celiac artery stenosis Closed intertrochanteric fracture of left hip COPD (chronic obstructive pulmonary disease) Coronary artery disease DJD (degenerative joint disease) GERD (gastroesophageal reflux disease) Gout Hereditary hemochromatosis Hyperlipidemia Hypertension Metastatic non-small cell lung cancer Obstructive sleep apnea Peripheral arterial disease with history of revascularization Peripheral neuropathy Thromboembolism 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, 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 Type 2 diabetes mellitus Surgical History H/O arterial bypass of lower limb (1999) right leg History of left hip hemiarthroplasty (03/17/19) History of lobectomy of lung (04/29/17) right upper lobe lobectomy with mediastinal lymph node biopsy History of PTCA History of quadruple bypass (1996) History of tonsillectomy and adenoidectomy Hx of appendectomy Hx of cataract extraction Family History Mother Diabetes Chronic kidney disease (CKD) Brother CAD (coronary artery disease) Cancer Diabetes Son CAD (coronary artery disease) Denies family history of Clotting disorder Dementia Suicide Anesthesia complication Bleeding disorder Lung disease Stroke Social History Smoking and tobacco status: former smoker Quit status (tobacco): has quit using tobacco Year quit tobacco: 1996 Former quit date comment: smoked x 30+ years Alcohol intake: never Substance/Drug Use: never Lives independently: Yes Household members: spouse Special jazlyn needs: No Course Vital Signs: Vital signs: Vital Signs Temperature 98.2 F 01/09/23 20:54 Pulse Rate 64 01/10/23 02:00 Respiratory Rate 16 01/10/23 02:00 Blood Pressure 139/70 01/10/23 02:00 Pulse Oximetry 94 01/10/23 02:00 Oxygen Delivery Me thod Nasal Cannula 01/10/23 02:00 Oxygen Flow Rate 2.5 01/10/23 02:00 MDM - Extremity (Nontraumatic) Medical Decision Making Patient presents with worsening DVT. The DVT date dates back to May 2022 despite being on Eliquis and subsequently Lovenox that has progressed and now he has heavy enough pulmonary embolism load that he has right heart strain. We do not have any physician available to place an inferior vena cava filter. Conferred with Dr. Renae he is in agreement we will transfer this patient as we do not have available staff for optimal care. Discussed with the patient and family. Awaiting final details of transfer. Case turned over to Dr. Tierney to complete the transfer logistics. Patient was excepted at [facility] by Dr. Carver for higher level care for vascular Lab Data 01/09/23 23:18 01/09/23 23:18 Radiology Impressions Venous Duplex 01/09/23 21:34 IMPRESSION: Occlusive DVT noted throughout the lower extremity. ADDENDUM: 01/09/232 Findings were discussed with HUBER PATEL at 01/09/2023 10:40 PM CDT. Chest CTA 01/09/23 23:09 IMPRESSION: 1. Bilateral left greater than right segmental to subsegmental branch pulmonary emboli with mild right heart strain given an RV to LV ratio of approximately 1.25. 2. Cholelithiasis. 3. Several hepatic cysts. 4. Diverticulosis without diverticulitis. 5. Emphysematous changes. ADDENDUM: 01/10/23 0059 THIS REPORT CONTAINS FINDINGS THAT MAY BE CRITICAL TO PATIENT CARE. The findings were verbally communicated via telephone conference with HUBER PATEL at 12:57 AM CDT on 01/10/2023. The findings were acknowledged and understood. Laboratory Results WBC 6.4 10^3/uL (4.0-10.0) 01/09/23 23:18 RBC 5.67 10^6/uL (4.1-5.3) H 01/09/23 23:18 Hgb 17.1 g/dL (11.7-16.6) H 01/09/23 23:18 Hct 51.2 % (42.0-52.0) 01/09/23 23:18 MCV 90.3 fl (80-94) 01/09/23 23:18 MCH 30.2 pg (28.0-34.0) 01/09/23 23:18 MCHC 33.4 g/dL (30.0-36.0) 01/09/23 23:18 RDW 14.0 % (12.1-15.1) 01/09/23 23:18 Plt Count 172 10^3/cmm (130-400) 01/09/23 23:18 MPV 9.8 fL (7.4-10.4) 01/09/23 23:18 Neut % (Auto) 65.5 % 01/09/23 23:18 Lymph % (Auto) 17.3 % 01/09/23 23:18 [place] % (Auto) 10.7 % 01/09/23 23:18 Eos % (Auto) 5.3 % 01/09/23 23:18 Baso % (Auto) 0.9 % 01/09/23 23:18 Neut # (Auto) 4.21 10^3/uL (1.8-7.7) 01/09/23 23:18 Lymph # (Auto) 1.1 10^3/uL (0.8-4.8) 01/09/23 23:18 [place] # (Auto) 0.7 10^3/uL (0.2-0.9) 01/09/23 23:18 Eos # (Auto) 0.3 10^3/uL (0.0-0.8) 01/09/23 23:18 Baso # (Auto) 0.1 10^3/uL (0.0-0.1) 01/09/23 23:18 Nucleated RBC % (auto) 0 % 01/09/23 23:18 Nucleated RBCs # 0.0 /100WBC 01/09/23 23:18 PT 13.40 SECONDS (12.1-14.9) 01/09/23 23:18 INR 0.99 (0.8-1.2) 01/09/23 23:18 APTT 31.4 SECONDS (23.9-36.7) 01/09/23 23:18 Sodium 140 mmol/L (136-145) 01/09/23 23:18 Potassium 4.2 mmol/L (3.5-5.1) 01/09/23 23:18 Chloride 102 mmol/L (98-107) 01/09/23 23:18 Carbon Dioxide 26 mmol/L (22-29) 01/09/23 23:18 Anion Gap 16.2 (5-19) 01/09/23 23:18 BUN 23 mg/dL (8-23) 01/09/23 23:18 Creatinine 1.1 mg/dL (0.7-1.2) 01/09/23 23:18 GFR Calculation Not Reportable 01/09/23 23:18 Glucose 164 mg/dL (65-115) H 01/09/23 23:18 Calculated Osmolality 297 mOsm/kg (285-295) H 01/09/23 23:18 Calcium 9.4 mg/dL (8.5-10.5) 01/09/23 23:18 Discharge Plan Discharge Patient Disposition: Xfer Short-Term Hosp Clinical Impression: Pulmonary embolism, DVT (deep venous thrombosis), Malignant neoplasm of upper lobe, right bronchus or lung Condition: Stable Referrals: Silver Alvarez DO [Primary Care Provider] - Coding Level of Care Code ED Animal Health Technician for Moises Sam
--- NOTE | 2023-01-09 23:09 | CTR_ITS ---
PROCEDURE INFORMATION: Exam: CTA Chest With Contrast Exam date and time: 01/09/2023 11:43 PM Age: 82 years old Clinical indication: Abnormal findings; Other: Positive dvt on US; Shortness of breath; Prior surgery; Surgery date: 6+ months; Surgery type: Cabg. Coronary stent. RT lobectomy. Patient HX: C/O SOB. Positive for left lower ext dvt. History of lung cancer. ; Additional info: Dvt/hx lung CA TECHNIQUE: Imaging protocol: Computed tomographic angiography of the chest with contrast. Exam focused on the arteries. 3D rendering (Not supervised by radiologist): MIP and/or 3D reconstructed images were created by the technologist. Radiation optimization: All CT scans at this facility use at least one of these dose optimization techniques: automated exposure control; mA and/or kV adjustment per patient size (includes targeted exams where dose is matched to clinical indication); or iterative reconstruction. Contrast material: OMNI 350; Contrast volume: 96 ml; Contrast route: INTRAVENOUS (IV); REPORTING DATA: Count of CT and Cardiac NM exams in prior 12 months: This patient has received 6 known CTs and 0 known cardiac nuclear medicine studies in the 12 months prior to the current study. COMPARISON: [facility] [id number] 11/08/2022 12:17 PM RADIATION DOSE METRICS: Total DLP (mGy-cm): 384.19 FINDINGS: Pulmonary arteries: Bilateral left greater than right segmental to subsegmental branch pulmonary emboli with mild right heart strain given an RV to LV ratio of approximately 1.25. Aorta: Unremarkable. No aortic aneurysm. No aortic dissection. Lungs: Emphysematous changes. Pleural spaces: Unremarkable. No pneumothorax. No pleural effusion. Heart: See Pulmonary arteries finding. Lymph nodes: Unremarkable. No enlarged lymph nodes. Liver: Several hepatic cysts. Gallbladder and bile ducts: Cholelithiasis. Stomach and bowel: Diverticulosis without diverticulitis. Bones/joints: Sternotomy wires. Soft tissues: Unremarkable. CT/CT angio chest PE protcl [id number] IMPRESSION: 1. Bilateral left greater than right segmental to subsegmental branch pulmonary emboli with mild right heart strain given an RV to LV ratio of approximately 1.25. 2. Cholelithiasis. 3. Several hepatic cysts. 4. Diverticulosis without diverticulitis. 5. Emphysematous changes.
[2023-01-09 23:24] LABS: Basophils # 0.1 10^3/uL (0.0-0.1); Basophils % 0.9 %; Eosinophils # 0.3 10^3/uL (0.0-0.8); Eosinophils % 5.3 %; Hematocrit 51.2 % (42.0-52.0); Hemoglobin 17.1 g/dL (11.7-16.6); Lymphocytes # 1.1 10^3/uL (0.8-4.8); Lymphocytes % 17.3 %; Mean Corpuscular HGB Conc 33.4 g/dL (30.0-36.0); Mean Corpuscular Hemoglobin 30.2 pg (28.0-34.0); Mean Corpuscular Volume 90.3 fl (80-94); Mean Platelet Volume 9.8 fL (7.4-10.4); Monocytes # 0.7 10^3/uL (0.2-0.9); Monocytes % 10.7 %; Neutrophils # 4.21 10^3/uL (1.8-7.7); Neutrophils % 65.5 %; Nucleated Red Blood Cells % 0 %; Platelet Count 172 10^3/cmm (130-400); Red Blood Count 5.67 10^6/uL (4.1-5.3); White Blood Count 6.4 10^3/uL (4.0-10.0)
[2023-01-09 23:38] LABS: INR 0.99 (0.8-1.2)
[2023-01-09 23:39] LABS: Partial Thromboplastin Time 31.4 SECONDS (23.9-36.7)
[2023-01-09 23:46] LABS: Anion Gap 16.2 (5-19); Blood Urea Nitrogen 23 mg/dL (8-23); Calcium 9.4 mg/dL (8.5-10.5); Carbon Dioxide 26 mmol/L (22-29); Chloride 102 mmol/L (98-107); Glucose 164 mg/dL (65-115); Osmolality Calculated 297 mOsm/kg (285-295); Potassium 4.2 mmol/L (3.5-5.1); Sodium 140 mmol/L (136-145)
[2023-01-09] MEDS: iohexol 350 mg/mL 500 mL Btl (per mL) IV (23:46)
[2023-01-10] VITALS: BP 153/67; PULSE 67; O2SAT 95
[2023-01-10 01:30] VITALS: BP 150/90; PULSE 67; O2SAT 96
[2023-01-10] MEDS: heparin 5,000 unit/mL INJ 1 mL 5000 UNIT SUBCUT (01:43)
[2023-01-10] MEDS: heparin drip 25,000 UNIT/500 ML PREMIX 22 UNIT IV (01:49)
[2023-01-10 02:00] VITALS: BP 139/70; PULSE 64; RESP 16; O2SAT 94
--- NOTE | 2023-01-10 04:25 | PC.NURSE ---
PT'S HEPARIN WAS CONTINUED BY EMS IN ROUTE TO [facility] IN [place].
== END 2023-01-10 03:25 | disposition short-term general hospital (02) ==
PROVIDERS: Family Medicine; Emergency Provider Emergency Medicine; PCP Family Medicine
DX: I82.811 Embolism and thrombosis of superficial veins of right lower extremity (principal); I82.412 Acute embolism and thrombosis of left femoral vein; I82.4Z2 Acute embolism and thrombosis of unspecified deep veins of left distal lower extremity; I26.99 Other pulmonary embolism without acute cor pulmonale; E11.42 Type 2 diabetes mellitus with diabetic polyneuropathy; E11.51 Type 2 diabetes mellitus with diabetic peripheral angiopathy without gangrene; I25.10 Atherosclerotic heart disease of native coronary artery without angina pectoris; I10 Essential (primary) hypertension; E78.5 Hyperlipidemia, unspecified; J44.9 Chronic obstructive pulmonary disease, unspecified; Z79.01 Long term (current) use of anticoagulants; Z87.891 Personal history of nicotine dependence; Z85.118 Personal history of other malignant neoplasm of bronchus and lung; Z95.1 Presence of aortocoronary bypass graft; Z99.81 Dependence on supplemental oxygen
CPT/HCPCS: 36415; 71275; 80048; 85025; 85610; 85730; 93971; 96365; 96366; 96372; 99285; J1644; Q9967

== ENCOUNTER 2023-02-05 13:25 | Oncology outpatient (recurring) (ONCR) | payer MEDICARE, SELFPAY | END 2023-02-19 23:59 | disposition home or self-care (01) | PROVIDERS: PCP Family Medicine; Visit Provider Internal Medicine Medical Oncology | DX: C34.11 Malignant neoplasm of upper lobe, right bronchus or lung (principal); C79.51 Secondary malignant neoplasm of bone | CPT/HCPCS: 99214 ==

== ENCOUNTER → 2023-02-09 13:00 | Outpatient (BNVA) | payer OTHER, SELFPAY | PROVIDERS: PCP Family Medicine; Visit Provider Internal Medicine Pulmonary Disease | DX: I26.99 Other pulmonary embolism without acute cor pulmonale; C34.11 Malignant neoplasm of upper lobe, right bronchus or lung; J44.9 Chronic obstructive pulmonary disease, unspecified; Z87.891 Personal history of nicotine dependence; Z79.01 Long term (current) use of anticoagulants | CPT/HCPCS: 99204 ==

== ENCOUNTER → 2023-02-24 09:41 | Outpatient (BNVA) | payer MEDICARE, SELFPAY | PROVIDERS: PCP Family Medicine; Visit Provider Podiatrist Foot & Ankle Surgery | DX: L60.3 Nail dystrophy (principal); E11.42 Type 2 diabetes mellitus with diabetic polyneuropathy; I73.9 Peripheral vascular disease, unspecified; M67.472 Ganglion, left ankle and foot | CPT/HCPCS: 11721 ==

== ENCOUNTER 2023-02-26 08:40 | Outpatient (CLI) | payer OTHER, SELFPAY ==
[2023-02-26 09:04] VITALS: PULSE 85; RESP 18; O2SAT 94
[2023-02-26] MEDS: albuterol 2.5 mg/3 mL Neb INHALATION (09:04)
[2023-02-26 09:09] VITALS: PULSE 88
== END 2023-02-26 08:41 | disposition home or self-care (01) ==
LOC: RT 08:42
PROVIDERS: PCP Family Medicine; Visit Provider Internal Medicine Pulmonary Disease
DX: R06.02 Shortness of breath (principal)
CPT/HCPCS: 94060; 94618; 94726; 94729; J7613

== ENCOUNTER 2023-03-05 10:31 | Oncology outpatient (recurring) (ONCR) | payer OTHER, SELFPAY ==
[2023-03-05 10:45] VITALS: BP 135/81; PULSE 71; RESP 16; TEMP 36.3; O2SAT 93
[2023-03-05 10:56] LABS: Basophils # 0.1 10^3/uL (0.0-0.1); Basophils % 1.1 %; Eosinophils # 0.3 10^3/uL (0.0-0.8); Eosinophils % 5.2 %; Hematocrit 54.1 % (37-53); Lymphocytes # 1.2 10^3/uL (0.8-4.8); Lymphocytes % 18.6 %; Mean Corpuscular HGB Conc 33.8 g/dL (30-55); Mean Corpuscular Volume 91.7 fl (82-101); Mean Platelet Volume 9.1 fL (7.4-10.4); Monocytes # 0.5 10^3/uL (0.2-0.9); Monocytes % 8.4 %; Neutrophils # 4.12 10^3/uL (1.8-7.7); Neutrophils % 66.5 %; Nucleated Red Blood Cells % 0 %; Platelet Count 181 10^3/cmm (157-399); Red Cell Distribution Width 13.6 % (12.1-15.1); White Blood Count 6.19 10^3/uL (3.29-11.43)
[2023-03-05 11:09] LABS: Alanine Aminotransferase 19 U/L (0-41); Albumin Level 4.7 g/dL (3.5-5.2); Alkaline Phosphatase 42 U/L (40-130); Aspartate Amino Transferase 15 U/L (0-40); Blood Urea Nitrogen 20 mg/dL (8-23); Calcium 10.1 mg/dL (8.5-10.5); Carbon Dioxide 30 mmol/L (22-29); Chloride 99 mmol/L (98-107); Globulin 2.7 g/dL (1.3-4.6); Glucose 183 mg/dL (65-115); Osmolality Calculated 293 mOsm/kg (285-295); Sodium 138 mmol/L (136-145); Total Bilirubin 0.7 mg/dL (0.15-1.2); Total Protein 7.4 g/dL (6.6-8.7)
[2023-03-05 11:11] LABS: Anion Gap 13.9 (5-19); Potassium 4.9 mmol/L (3.5-5.1)
== END 2023-03-21 23:59 | disposition home or self-care (01) ==
PROVIDERS: PCP Family Medicine; Visit Provider Internal Medicine Medical Oncology
DX: E03.9 Hypothyroidism, unspecified (principal); C34.11 Malignant neoplasm of upper lobe, right bronchus or lung; C79.51 Secondary malignant neoplasm of bone; Z87.891 Personal history of nicotine dependence; Z90.2 Acquired absence of lung [part of]; Z92.3 Personal history of irradiation; I26.99 Other pulmonary embolism without acute cor pulmonale; I82.402 Acute embolism and thrombosis of unspecified deep veins of left lower extremity; Z79.01 Long term (current) use of anticoagulants; I82.622 Acute embolism and thrombosis of deep veins of left upper extremity; Z79.02 Long term (current) use of antithrombotics/antiplatelets; M25.552 Pain in left hip; Z53.9 Procedure and treatment not carried out, unspecified reason
CPT/HCPCS: 36415; 80053; 85025; 99214

== ENCOUNTER 2023-03-31 11:47 | Outpatient (CLI) | payer OTHER, SELFPAY ==
--- NOTE | 2023-03-31 12:30 | CT_ITS ---
WS: [id number] CT LEFT HIP, NONCONTRAST HISTORY: left hip pain, lung cancer Technique: All CT scans at [facility] use at least one of these dose optimization techniques: automated exposure control; mA and/or kV adjustment per patient size (includes targeted exams where dose is matched to clinical indication); or iterative reconstruction. DLP: 522.14 mGy.cm COMPARISON: 05/01/2022 CT LEFT hip. Since the prior CT of 05/01/2022 patient is undergone revision of the LEFT hip orthopedic repair. Tot al hip arthroplasty with a moderate intramedullary marco a. The marco a extends to the mid femur. There is a destructive permeative process in the posterior proximal femur. This is at the level of th e lesser trochanter and extends across the posterior femur. There is loss of the normal cortex. Seen best on the coronal reformat is a permeative bone destruction across the posterior femur. With histor y of lung cancer this is suspicious for a metastatic lesion. This was not present on the prior exam o f 05/01/2022. Permeative lesion extends over a length of at least 5.8 cm. No definite pathological fr acture although patient is at risk. An identifiable soft tissue mass is not definitely visualized on this unenhanced study although suspicious. Heavy calcification in the femoral artery. No additional destructive bone lesions. IMPRESSION: 1. Destructive permeative bone lesion involving the proximal posterior LEFT femur. This is at the lev el of the lesser trochanter and extends over a length of 5.8 cm. Permeative lesion adjacent to the LE FT hip replacement revision. Patient is at risk for pathological fracture. Highly suspicious for meta static site. 2. Status post LEFT total hip arthroplasty with intramedullary marco a.
--- NOTE | 2023-03-31 13:00 | CT_ITS ---
WS: [id number] CT LEFT FEMUR, NONCONTRAST HISTORY: left hip pain, lung cancer Technique: All CT scans at [facility] use at least one of these dose optimization techniques: automated exposure control; mA and/or kV adjustment per patient size (includes targeted exams where dose is matched to clinical indication); or iterative reconstruction. DLP: 612.79 mGy.cm COMPARISON: None available. CT imaging through the LEFT femur. Status post total hip arthroplasty with long intramedullary marco a ex tending to the mid femur. The destructive infiltrative process involving the posterior proximal femur was described on the CT LEFT hip. The remaining femur is intact. There is no loosening or pathologi jensen fracture near the end of the intramedullary marco a. Knee is negative. Heavy calcification noted with in the popliteal and femoral artery. IMPRESSION: 1. Please review the CT LEFT hip report for information described in the permeative infiltrative bone lesion of the proximal femur. 2. Status post LEFT hip arthroplasty. The remaining femur is negative. No additional destructive bone lesions and no fracture.
== END 2023-03-31 11:48 | disposition home or self-care (01) ==
PROVIDERS: PCP Family Medicine; Visit Provider Internal Medicine Medical Oncology
DX: C34.11 Malignant neoplasm of upper lobe, right bronchus or lung (principal); M25.552 Pain in left hip; M89.9 Disorder of bone, unspecified; Z96.642 Presence of left artificial hip joint
CPT/HCPCS: 73700

== ENCOUNTER → 2023-04-06 08:33 | Day surgery (SDC) | payer OTHER, SELFPAY ==
--- NOTE | 2023-04-06 08:39 | XR_ITS ---
WS: [id number] CHEST XRAY TECHNIQUE: Portable chest. CLINICAL INFORMATION: Post PICC insertion COMPARISON: 11/20/2022 FINDINGS: RIGHT PICC line with tip in the distal SVC. Heart: Normal cardiac silhouette. Sternotomy. CABG. Lungs: Elevation RIGHT hemidiaphragm. Chronic emphysematous changes. Bones: Osteopenia. IMPRESSION: RIGHT PICC line distal SVC. No pneumothorax.
[2023-04-06 08:45] VITALS: BP 111/63; PULSE 108; RESP 18; TEMP 36.1; O2SAT 96
--- NOTE | 2023-04-06 09:50 | PC.NURSE ---
Double lumen PICC placed to right basilic vein. [facility] Pt to begin chemotherapy. Right arm assessed with right basilic vein measuring 6 mm, straight, and apparent best choice for placement. Using sterile technique and MST, right basilic vein accessed x 1 stick. Mid-arm circumference measured 10 cm from right AC 27 cm. Trimmed cath 41 cm with 0 cm external length noted. CXR shows tip in SVC, in good position for use per radiologist. Line secured with stat-lock. Insertion site covered with Biopatch and TSM. Report called to Dr. Farrukh Diamond's nurse. Pt scheduled at [facility] tomorrow at 0900 for PICC dressing change.
== END ==
PROVIDERS: PCP Family Medicine; Visit Provider Internal Medicine Medical Oncology
DX: Z45.2 Encounter for adjustment and management of vascular access device (principal)
CPT/HCPCS: 36573; 71045

== ENCOUNTER 2023-04-14 08:00 | Oncology outpatient (recurring) (ONCR) | payer OTHER, SELFPAY ==
[2023-04-07 08:40] VITALS: BP 114/63; PULSE 72; RESP 16; TEMP 36.1; O2SAT 90
[2023-04-08] MEDS: cyanocobalamin 1,000 mcg/mL SDV 1000 MCG IM (12:21)
[2023-04-08 12:28] VITALS: BP 118/56; PULSE 63; RESP 18; TEMP 36.6; O2SAT 98
[2023-04-14 08:03] LABS: Basophils # 0.1 10^3/uL (0.0-0.1); Eosinophils # 0.3 10^3/uL (0.0-0.8); Eosinophils % 4.4 %; Hematocrit 46.7 % (37-53); Lymphocytes # 1.2 10^3/uL (0.8-4.8); Lymphocytes % 17.3 %; Mean Corpuscular HGB Conc 34.5 g/dL (30-55); Mean Corpuscular Hemoglobin 31.1 pg (27-33); Mean Corpuscular Volume 90.2 fl (82-101); Mean Platelet Volume 9.2 fL (7.4-10.4); Monocytes # 0.5 10^3/uL (0.2-0.9); Monocytes % 7.7 %; Neutrophils # 4.83 10^3/uL (1.8-7.7); Neutrophils % 69.2 %; Nucleated Red Blood Cells % 0 %; Platelet Count 175 10^3/cmm (157-399); Red Blood Count 5.18 10^6/uL (3.85-5.65); Red Cell Distribution Width 13.6 % (12.1-15.1); White Blood Count 6.99 10^3/uL (3.29-11.43)
[2023-04-14 08:16] VITALS: BP 110/59; PULSE 62; TEMP 36.7; O2SAT 96
[2023-04-14 08:49] LABS: Albumin Level 4.3 g/dL (3.5-5.2); Alkaline Phosphatase 33 U/L (40-130); Blood Urea Nitrogen 22 mg/dL (8-23); Calcium 9.6 mg/dL (8.5-10.5); Carbon Dioxide 27 mmol/L (22-29); Chloride 99 mmol/L (98-107); Cortisol Random 9.09 ug/dL (2.47-19.5); Globulin 2.2 g/dL (1.3-4.6); Glucose 218 mg/dL (65-115); Osmolality Calculated 290 mOsm/kg (285-295); Sodium 135 mmol/L (136-145); Thyroid Stimulating Hormone 7.24 uIU/mL (0.27-4.20); Total Protein 6.5 g/dL (6.6-8.7)
[2023-04-14 09:00] LABS: Anion Gap 13.6 (5-19); Potassium 4.6 mmol/L (3.5-5.1)
[2023-04-14 09:01] LABS: Alanine Aminotransferase 13 U/L (0-41); Aspartate Amino Transferase 18 U/L (0-40)
[2023-04-14] MEDS: sodium chloride 0.9% 250 ML 75 ML IV (10:34)
[2023-04-14] MEDS: diphenhydrAMINE 50 mg/mL SDV 1mL 25 MG IVP (10:36)
[2023-04-14] MEDS: famotidine 20 mg/2 mL INJ IVP (10:40)
[2023-04-14] MEDS: OLANZapine 5 mg TABLET PO (10:41)
[2023-04-14] MEDS: palonosetron 0.25 mg/5 mL SDV IVP (10:44)
[2023-04-14] MEDS: fosaprepitant 150 MG in sodium chloride 0.9% 150 ML 300 MG IV (11:00)
[2023-04-14] MEDS: pembrolizumab 200 MG in sodium chloride 0.9% 250 ML 516 MG IV (11:55)
[2023-04-14] MEDS: SODIUM CHLORIDE 0.9% IV (12:40)
[2023-04-14] MEDS: PEMETREXED DISODIUM IV (12:40)
[2023-04-14] MEDS: CARBOplatin 540 MG in sodium chloride 0.9% 500 ML 554 MG IV (13:02)
[2023-04-14 15:16] VITALS: BP 137/51; PULSE 57; TEMP 35.8; O2SAT 93
== END 2023-04-14 23:59 | disposition home or self-care (01) ==
PROVIDERS: PCP Family Medicine; Visit Provider Internal Medicine Medical Oncology
DX: I82.622 Acute embolism and thrombosis of deep veins of left upper extremity (principal); C34.11 Malignant neoplasm of upper lobe, right bronchus or lung; C79.51 Secondary malignant neoplasm of bone; E03.9 Hypothyroidism, unspecified; Z51.11 Encounter for antineoplastic chemotherapy
CPT/HCPCS: 80053; 82533; 84443; 85025; 96367; 96375; 96402; 96409; 96413; 96417; 99214; 99215; J1100; J1200; J1453; J1642; J2469; J3420; J3490; J7040; J7050; J9045; J9271; J9305

== ENCOUNTER 2023-04-21 13:15 | Oncology outpatient (recurring) (ONCR) | payer OTHER, SELFPAY ==
[2023-04-21 14:23] VITALS: BP 136/72; PULSE 74; RESP 18; TEMP 36.6; O2SAT 98
[2023-04-21 14:24] LABS: Basophils % 0.5 %; Eosinophils # 0.4 10^3/uL (0.0-0.8); Eosinophils % 9.2 %; Hematocrit 44.9 % (37-53); Lymphocytes % 24.5 %; Mean Corpuscular HGB Conc 34.7 g/dL (30-55); Mean Corpuscular Hemoglobin 31.1 pg (27-33); Mean Corpuscular Volume 89.6 fl (82-101); Mean Platelet Volume 9.7 fL (7.4-10.4); Monocytes # 0.1 10^3/uL (0.2-0.9); Monocytes % 2.5 %; Neutrophils # 2.55 10^3/uL (1.8-7.7); Neutrophils % 63.1 %; Nucleated Red Blood Cells % 0 %; Platelet Count 105 10^3/cmm (157-399); Red Blood Count 5.01 10^6/uL (3.85-5.65); White Blood Count 4.04 10^3/uL (3.29-11.43)
[2023-04-21 14:38] LABS: Alanine Aminotransferase 58 U/L (0-41); Albumin Level 3.8 g/dL (3.5-5.2); Alkaline Phosphatase 41 U/L (40-130); Aspartate Amino Transferase 25 U/L (0-40); Blood Urea Nitrogen 30 mg/dL (8-23); Calcium 9.8 mg/dL (8.5-10.5); Carbon Dioxide 28 mmol/L (22-29); Chloride 98 mmol/L (98-107); Globulin 2.4 g/dL (1.3-4.6); Glucose 200 mg/dL (65-115); Osmolality Calculated 290 mOsm/kg (285-295); Sodium 134 mmol/L (136-145); Total Bilirubin 1.3 mg/dL (0.15-1.2); Total Protein 6.2 g/dL (6.6-8.7)
[2023-04-21 14:40] LABS: Anion Gap 12.2 (5-19); Potassium 4.2 mmol/L (3.5-5.1)
== END 2023-04-21 23:59 | disposition home or self-care (01) ==
PROVIDERS: Nurse Practitioner Family; PCP Family Medicine; Visit Provider Internal Medicine Medical Oncology
DX: C34.11 Malignant neoplasm of upper lobe, right bronchus or lung (principal)
CPT/HCPCS: 80053; 85025; J1642

== ENCOUNTER 2023-05-06 09:30 | Oncology outpatient (recurring) (ONCR) | payer OTHER, SELFPAY ==
[2023-04-28 13:44] VITALS: BP 121/60; PULSE 76; RESP 16; TEMP 36.4; O2SAT 94
[2023-04-28 14:14] LABS: Basophils % 0.4 %; Eosinophils # 0.3 10^3/uL (0.0-0.8); Eosinophils % 10.4 %; Hematocrit 39.9 % (37-53); Lymphocytes % 42.3 %; Mean Corpuscular HGB Conc 34.8 g/dL (30-55); Mean Corpuscular Hemoglobin 30.9 pg (27-33); Mean Corpuscular Volume 88.7 fl (82-101); Monocytes # 0.2 10^3/uL (0.2-0.9); Monocytes % 9.1 %; Neutrophils % 37.4 %; Nucleated Red Blood Cells % 0 %; Platelet Count 80 10^3/cmm (157-399); White Blood Count 2.41 10^3/uL (3.29-11.43)
[2023-04-28 14:39] LABS: Alanine Aminotransferase 35 U/L (0-41); Albumin Level 3.9 g/dL (3.5-5.2); Alkaline Phosphatase 43 U/L (40-130); Anion Gap 14.2 (5-19); Aspartate Amino Transferase 19 U/L (0-40); Blood Urea Nitrogen 21 mg/dL (8-23); Calcium 9.5 mg/dL (8.5-10.5); Carbon Dioxide 28 mmol/L (22-29); Chloride 101 mmol/L (98-107); Globulin 2.4 g/dL (1.3-4.6); Glucose 129 mg/dL (65-115); Osmolality Calculated 293 mOsm/kg (285-295); Potassium 4.2 mmol/L (3.5-5.1); Sodium 139 mmol/L (136-145); Total Protein 6.3 g/dL (6.6-8.7)
--- NOTE | 2023-04-28 15:40 | PC.NURSE ---
Called pt regarding critical ANC of 0.9. Educated pt and pts on monitoring temperature and if pt has temp greater than 100.5, pt needs to go to ER. Educated pt on wearing mask if out in public.
[2023-05-05 09:29] VITALS: BP 124/51; PULSE 75; RESP 16; TEMP 36; O2SAT 96
[2023-05-05 10:08] LABS: Hematocrit 38.1 % (37-53); Lymphocytes # 0.6 10^3/uL (0.8-4.8); Lymphocytes % 15.9 %; Mean Corpuscular HGB Conc 34.4 g/dL (30-55); Mean Corpuscular Hemoglobin 30.8 pg (27-33); Mean Corpuscular Volume 89.4 fl (82-101); Mean Platelet Volume 9.2 fL (7.4-10.4); Monocytes # 0.3 10^3/uL (0.2-0.9); Monocytes % 8.2 %; Neutrophils # 2.52 10^3/uL (1.8-7.7); Neutrophils % 71.4 %; Nucleated Red Blood Cells % 0.8 %; Platelet Count 502 10^3/cmm (157-399); Red Blood Count 4.26 10^6/uL (3.85-5.65); Red Cell Distribution Width 14.4 % (12.1-15.1); White Blood Count 3.53 10^3/uL (3.29-11.43)
[2023-05-05 10:30] LABS: Alanine Aminotransferase 28 U/L (0-41); Albumin Level 4.1 g/dL (3.5-5.2); Alkaline Phosphatase 41 U/L (40-130); Anion Gap 14.3 (5-19); Aspartate Amino Transferase 19 U/L (0-40); Blood Urea Nitrogen 20 mg/dL (8-23); Calcium 9.4 mg/dL (8.5-10.5); Carbon Dioxide 26 mmol/L (22-29); Chloride 100 mmol/L (98-107); Globulin 2.4 g/dL (1.3-4.6); Glucose 359 mg/dL (65-115); Osmolality Calculated 299 mOsm/kg (285-295); Potassium 4.3 mmol/L (3.5-5.1); Sodium 136 mmol/L (136-145); Thyroid Stimulating Hormone 1.06 uIU/mL (0.27-4.20); Total Bilirubin 0.6 mg/dL (0.15-1.2); Total Protein 6.5 g/dL (6.6-8.7)
[2023-05-06] MEDS: sodium chloride 0.9% 250 ML 75 ML IV (09:59)
[2023-05-06] MEDS: OLANZapine 5 mg TABLET PO (10:00)
[2023-05-06] MEDS: diphenhydrAMINE 50 mg/mL SDV 1mL 25 MG IVP (10:01)
[2023-05-06] MEDS: famotidine 20 mg/2 mL INJ IVP (10:07)
[2023-05-06] MEDS: palonosetron 0.25 mg/5 mL SDV IVP (10:12)
[2023-05-06] MEDS: fosaprepitant 150 MG in sodium chloride 0.9% 150 ML 300 MG IV (10:49)
[2023-05-06] MEDS: pembrolizumab 200 MG in sodium chloride 0.9% 250 ML 516 MG IV (11:30)
[2023-05-06] MEDS: PEMETREXED DISODIUM IV (12:17)
[2023-05-06] MEDS: SODIUM CHLORIDE 0.9% IV (12:17)
[2023-05-06 14:30] VITALS: BP 136/62; PULSE 76; RESP 18; TEMP 36; O2SAT 95
== END 2023-05-06 23:59 | disposition home or self-care (01) ==
PROVIDERS: Nurse Practitioner Family; PCP Family Medicine; Visit Provider Internal Medicine Medical Oncology
DX: Z51.11 Encounter for antineoplastic chemotherapy (principal); C34.11 Malignant neoplasm of upper lobe, right bronchus or lung; Z51.12 Encounter for antineoplastic immunotherapy
CPT/HCPCS: 36592; 80053; 84443; 85025; 96367; 96413; 96417; 99215; J1100; J1200; J1453; J1642; J2469; J3490; J7040; J7050; J9045; J9271; J9305

== ENCOUNTER 2023-05-19 10:30 | Oncology outpatient (recurring) (ONCR) | payer OTHER, SELFPAY ==
[2023-05-12 10:50] VITALS: BP 115/64; PULSE 69; RESP 16; TEMP 35.8; O2SAT 94
[2023-05-12 11:23] LABS: Basophils % 0.6 %; Eosinophils % 0.6 %; Hematocrit 39.5 % (37-53); Lymphocytes # 0.8 10^3/uL (0.8-4.8); Lymphocytes % 23.5 %; Mean Corpuscular HGB Conc 33.7 g/dL (30-55); Mean Corpuscular Hemoglobin 30.6 pg (27-33); Mean Corpuscular Volume 90.8 fl (82-101); Mean Platelet Volume 9.2 fL (7.4-10.4); Monocytes # 0.1 10^3/uL (0.2-0.9); Monocytes % 2.8 %; Neutrophils # 2.33 10^3/uL (1.8-7.7); Neutrophils % 71.9 %; Nucleated Red Blood Cells % 0 %; Platelet Count 222 10^3/cmm (157-399); Red Blood Count 4.35 10^6/uL (3.85-5.65); Red Cell Distribution Width 14.2 % (12.1-15.1); White Blood Count 3.24 10^3/uL (3.29-11.43)
[2023-05-12 12:17] LABS: Alanine Aminotransferase 18 U/L (0-41); Albumin Level 3.9 g/dL (3.5-5.2); Alkaline Phosphatase 34 U/L (40-130); Anion Gap 15.1 (5-19); Aspartate Amino Transferase 15 U/L (0-40); Blood Urea Nitrogen 26 mg/dL (8-23); Calcium 9.1 mg/dL (8.5-10.5); Carbon Dioxide 25 mmol/L (22-29); Chloride 103 mmol/L (98-107); Globulin 2.3 g/dL (1.3-4.6); Glucose 73 mg/dL (65-115); Osmolality Calculated 291 mOsm/kg (285-295); Potassium 4.1 mmol/L (3.5-5.1); Sodium 139 mmol/L (136-145); Total Bilirubin 1.2 mg/dL (0.15-1.2); Total Protein 6.2 g/dL (6.6-8.7)
[2023-05-19 10:29] VITALS: BP 120/59; PULSE 72; RESP 16; TEMP 36.2; O2SAT 92
[2023-05-19 10:59] LABS: Basophils % 0.5 %; Eosinophils # 0.2 10^3/uL (0.0-0.8); Eosinophils % 2.8 %; Hematocrit 33.6 % (37-53); Lymphocytes # 0.9 10^3/uL (0.8-4.8); Lymphocytes % 14.6 %; Mean Corpuscular HGB Conc 34.2 g/dL (30-55); Mean Corpuscular Hemoglobin 31.3 pg (27-33); Mean Corpuscular Volume 91.3 fl (82-101); Mean Platelet Volume 11.2 fL (7.4-10.4); Monocytes # 0.5 10^3/uL (0.2-0.9); Monocytes % 7.5 %; Neutrophils # 4.51 10^3/uL (1.8-7.7); Nucleated Red Blood Cells # 0.1 /100WBC; Nucleated Red Blood Cells % 0.8 %; Platelet Count 74 10^3/cmm (157-399); Red Blood Count 3.68 10^6/uL (3.85-5.65); Red Cell Distribution Width 14.1 % (12.1-15.1); White Blood Count 6.17 10^3/uL (3.29-11.43)
[2023-05-19 11:21] LABS: Alanine Aminotransferase 45 U/L (0-41); Albumin Level 3.9 g/dL (3.5-5.2); Alkaline Phosphatase 47 U/L (40-130); Anion Gap 15.1 (5-19); Aspartate Amino Transferase 24 U/L (0-40); Blood Urea Nitrogen 13 mg/dL (8-23); Calcium 9.1 mg/dL (8.5-10.5); Carbon Dioxide 26 mmol/L (22-29); Chloride 101 mmol/L (98-107); Glucose 195 mg/dL (65-115); Osmolality Calculated 291 mOsm/kg (285-295); Potassium 4.1 mmol/L (3.5-5.1); Sodium 138 mmol/L (136-145); Total Bilirubin 0.7 mg/dL (0.15-1.2); Total Protein 5.9 g/dL (6.6-8.7)
== END 2023-05-21 23:59 | disposition home or self-care (01) ==
PROVIDERS: Internal Medicine; PCP Family Medicine; Visit Provider Internal Medicine Medical Oncology
DX: Z53.9 Procedure and treatment not carried out, unspecified reason (principal)
CPT/HCPCS: 36592; 80053; 85025; J1642

== ENCOUNTER → 2023-05-26 09:52 | Outpatient (BNVA) | payer OTHER, SELFPAY | PROVIDERS: PCP Family Medicine; Visit Provider Podiatrist Foot & Ankle Surgery | DX: L60.3 Nail dystrophy (principal); E11.42 Type 2 diabetes mellitus with diabetic polyneuropathy; I73.9 Peripheral vascular disease, unspecified; M67.472 Ganglion, left ankle and foot | CPT/HCPCS: 11721 ==

== ENCOUNTER 2023-05-27 08:51 | Oncology outpatient (recurring) (ONCR) | payer OTHER, SELFPAY ==
[2023-05-27 08:59] VITALS: BP 124/58; PULSE 79; RESP 20; TEMP 36.2; O2SAT 94
[2023-05-27 09:42] LABS: Basophils % 0.4 %; Hematocrit 36.4 % (37-53); Lymphocytes # 0.6 10^3/uL (0.8-4.8); Lymphocytes % 21.6 %; Mean Corpuscular Hemoglobin 31.1 pg (27-33); Mean Corpuscular Volume 94.3 fl (82-101); Mean Platelet Volume 9.5 fL (7.4-10.4); Monocytes # 0.2 10^3/uL (0.2-0.9); Monocytes % 8.6 %; Neutrophils # 1.86 10^3/uL (1.8-7.7); Neutrophils % 66.9 %; Nucleated Red Blood Cells % 1.1 %; Platelet Count 258 10^3/cmm (157-399); Red Blood Count 3.86 10^6/uL (3.85-5.65); Red Cell Distribution Width 18.2 % (12.1-15.1); White Blood Count 2.78 10^3/uL (3.29-11.43)
[2023-05-27 10:10] LABS: Alanine Aminotransferase 23 U/L (0-41); Albumin Level 4.1 g/dL (3.5-5.2); Alkaline Phosphatase 41 U/L (40-130); Anion Gap 19.2 (5-19); Aspartate Amino Transferase 17 U/L (0-40); Blood Urea Nitrogen 18 mg/dL (8-23); Calcium 9.1 mg/dL (8.5-10.5); Carbon Dioxide 21 mmol/L (22-29); Chloride 103 mmol/L (98-107); Creatinine Clr Calc Pharmacy 63.4656; Globulin 2.4 g/dL (1.3-4.6); Glucose 277 mg/dL (65-115); Osmolality Calculated 300 mOsm/kg (285-295); Potassium 4.2 mmol/L (3.5-5.1); Sodium 139 mmol/L (136-145); Thyroid Stimulating Hormone 1.37 uIU/mL (0.27-4.20); Total Bilirubin 0.9 mg/dL (0.15-1.2); Total Protein 6.5 g/dL (6.6-8.7)
[2023-05-27] MEDS: OLANZapine 5 mg TABLET PO (12:25)
[2023-05-27] MEDS: palonosetron 0.25 mg/5 mL SDV IVP (12:26)
[2023-05-27] MEDS: famotidine 20 mg/2 mL INJ IVP (12:34)
[2023-05-27] MEDS: diphenhydrAMINE 50 mg/mL SDV 1mL 25 MG IVP (12:36)
[2023-05-27] MEDS: pembrolizumab 200 MG in sodium chloride 0.9% 250 ML 516 MG IV (13:16)
[2023-05-27] MEDS: fosaprepitant 150 MG in sodium chloride 0.9% 150 ML 300 MG IV (14:08)
[2023-05-27] MEDS: denosumab 120 mg SDV SUBCUT (16:09)
[2023-05-27 17:06] VITALS: BP 152/71; PULSE 74; RESP 18; TEMP 36.8; O2SAT 98
== END 2023-05-27 23:59 | disposition home or self-care (01) ==
PROVIDERS: Internal Medicine; PCP Family Medicine; Visit Provider Internal Medicine Medical Oncology
DX: Z51.11 Encounter for antineoplastic chemotherapy (principal); C34.11 Malignant neoplasm of upper lobe, right bronchus or lung; E03.9 Hypothyroidism, unspecified; Z79.899 Other long term (current) drug therapy
CPT/HCPCS: 80053; 84443; 85025; 96367; 96372; 96375; 96413; 96415; 96417; 99215; J0897; J1100; J1200; J1453; J2469; J3490; J7040; J7050; J9045; J9271; J9305

== ENCOUNTER 2023-06-17 09:15 | Oncology outpatient (recurring) (ONCR) | payer OTHER, SELFPAY ==
[2023-06-03 15:15] VITALS: BP 127/62; PULSE 74; RESP 20; TEMP 36.1; O2SAT 94
[2023-06-03 16:02] LABS: Basophils % 0.7 %; Eosinophils # 0.2 10^3/uL (0.0-0.8); Eosinophils % 5.6 %; Hematocrit 34.7 % (37-53); Lymphocytes # 0.9 10^3/uL (0.8-4.8); Mean Corpuscular HGB Conc 33.7 g/dL (30-55); Mean Corpuscular Hemoglobin 31.9 pg (27-33); Mean Corpuscular Volume 94.6 fl (82-101); Mean Platelet Volume 10.1 fL (7.4-10.4); Monocytes # 0.3 10^3/uL (0.2-0.9); Monocytes % 9.3 %; Neutrophils # 1.33 10^3/uL (1.8-7.7); Neutrophils % 49.7 %; Nucleated Red Blood Cells % 0 %; Platelet Count 150 10^3/cmm (157-399); Red Blood Count 3.67 10^6/uL (3.85-5.65); Red Cell Distribution Width 16.1 % (12.1-15.1); White Blood Count 2.68 10^3/uL (3.29-11.43)
[2023-06-03 16:32] LABS: Alanine Aminotransferase 23 U/L (0-41); Alkaline Phosphatase 39 U/L (40-130); Aspartate Amino Transferase 21 U/L (0-40); Blood Urea Nitrogen 23 mg/dL (8-23); Calcium 9.1 mg/dL (8.5-10.5); Carbon Dioxide 26 mmol/L (22-29); Chloride 101 mmol/L (98-107); Globulin 2.3 g/dL (1.3-4.6); Glucose 145 mg/dL (65-115); Osmolality Calculated 294 mOsm/kg (285-295); Sodium 139 mmol/L (136-145); Total Bilirubin 0.9 mg/dL (0.15-1.2); Total Protein 6.3 g/dL (6.6-8.7)
[2023-06-03 16:34] LABS: Anion Gap 16.5 (5-19); Potassium 4.5 mmol/L (3.5-5.1)
[2023-06-10 14:44] VITALS: BP 123/55; PULSE 73; RESP 20; TEMP 36.3; O2SAT 91
[2023-06-10 15:25] LABS: Basophils % 0.4 %; Eosinophils # 0.2 10^3/uL (0.0-0.8); Eosinophils % 4.2 %; Hematocrit 34.2 % (37-53); Lymphocytes # 0.8 10^3/uL (0.8-4.8); Lymphocytes % 18.5 %; Mean Corpuscular HGB Conc 33.3 g/dL (30-55); Mean Corpuscular Hemoglobin 31.8 pg (27-33); Mean Corpuscular Volume 95.3 fl (82-101); Mean Platelet Volume 11.3 fL (7.4-10.4); Monocytes # 0.5 10^3/uL (0.2-0.9); Monocytes % 10.9 %; Neutrophils # 2.91 10^3/uL (1.8-7.7); Neutrophils % 64.9 %; Nucleated Red Blood Cells # 0.1 /100WBC; Nucleated Red Blood Cells % 1.1 %; Platelet Count 87 10^3/cmm (157-399); Red Blood Count 3.59 10^6/uL (3.85-5.65); White Blood Count 4.49 10^3/uL (3.29-11.43)
[2023-06-10 15:51] LABS: Alanine Aminotransferase 53 U/L (0-41); Albumin Level 4.2 g/dL (3.5-5.2); Alkaline Phosphatase 43 U/L (40-130); Blood Urea Nitrogen 13 mg/dL (8-23); Calcium 9.3 mg/dL (8.5-10.5); Carbon Dioxide 25 mmol/L (22-29); Chloride 102 mmol/L (98-107); Globulin 2.2 g/dL (1.3-4.6); Glucose 153 mg/dL (65-115); Osmolality Calculated 287 mOsm/kg (285-295); Sodium 137 mmol/L (136-145); Total Protein 6.4 g/dL (6.6-8.7)
[2023-06-10 15:59] LABS: Anion Gap 15.1 (5-19); Aspartate Amino Transferase 47 U/L (0-40); Potassium 5.1 mmol/L (3.5-5.1)
[2023-06-17 09:29] VITALS: BP 131/63; PULSE 69; RESP 16; TEMP 36.1; O2SAT 94
[2023-06-17 09:56] LABS: Hematocrit 36.7 % (37-53); Lymphocytes # 0.5 10^3/uL (0.8-4.8); Lymphocytes % 15.8 %; Mean Corpuscular HGB Conc 33.2 g/dL (30-55); Mean Corpuscular Hemoglobin 32.3 pg (27-33); Mean Corpuscular Volume 97.1 fl (82-101); Mean Platelet Volume 9.9 fL (7.4-10.4); Monocytes # 0.1 10^3/uL (0.2-0.9); Monocytes % 3.1 %; Neutrophils # 2.59 10^3/uL (1.8-7.7); Neutrophils % 80.5 %; Nucleated Red Blood Cells % 0 %; Platelet Count 251 10^3/cmm (157-399); Red Blood Count 3.78 10^6/uL (3.85-5.65); Red Cell Distribution Width 19.3 % (12.1-15.1); White Blood Count 3.22 10^3/uL (3.29-11.43)
[2023-06-17 10:23] LABS: Alanine Aminotransferase 24 U/L (0-41); Albumin Level 4.5 g/dL (3.5-5.2); Alkaline Phosphatase 42 U/L (40-130); Anion Gap 17.7 (5-19); Aspartate Amino Transferase 18 U/L (0-40); Blood Urea Nitrogen 23 mg/dL (8-23); Calcium 9.3 mg/dL (8.5-10.5); Carbon Dioxide 23 mmol/L (22-29); Chloride 101 mmol/L (98-107); Creatinine Clr Calc Pharmacy 56.4047; Globulin 2.2 g/dL (1.3-4.6); Glucose 302 mg/dL (65-115); Osmolality Calculated 299 mOsm/kg (285-295); Potassium 4.7 mmol/L (3.5-5.1); Sodium 137 mmol/L (136-145); Thyroid Stimulating Hormone 1.25 uIU/mL (0.27-4.20); Total Bilirubin 0.9 mg/dL (0.15-1.2); Total Protein 6.7 g/dL (6.6-8.7)
[2023-06-17] MEDS: sodium chloride 0.9% 250 ML 75 ML IV (12:15)
[2023-06-17] MEDS: diphenhydrAMINE 50 mg/mL SDV 1mL 25 MG IVP (12:16)
[2023-06-17] MEDS: palonosetron 0.25 mg/5 mL SDV IVP (12:19)
[2023-06-17] MEDS: OLANZapine 5 mg TABLET PO (12:19)
[2023-06-17] MEDS: famotidine 20 mg/2 mL INJ IVP (12:23)
[2023-06-17] MEDS: fosaprepitant 150 MG in sodium chloride 0.9% 150 ML 300 MG IV (12:28)
[2023-06-17] MEDS: pembrolizumab 200 MG in sodium chloride 0.9% 250 ML 516 MG IV (13:51)
[2023-06-17] MEDS: CARBOplatin 450 MG in sodium chloride 0.9% 500 ML 545 MG IV (15:01)
[2023-06-17] MEDS: cyanocobalamin 1,000 mcg/mL SDV 1000 MCG IM (16:20)
[2023-06-17 16:30] VITALS: BP 130/78; PULSE 87; RESP 17; TEMP 36.2; O2SAT 98
== END 2023-06-17 23:59 | disposition home or self-care (01) ==
PROVIDERS: Internal Medicine; PCP Family Medicine; Visit Provider Internal Medicine Medical Oncology
DX: Z53.9 Procedure and treatment not carried out, unspecified reason (principal); C34.11 Malignant neoplasm of upper lobe, right bronchus or lung; Z79.899 Other long term (current) drug therapy; Z51.11 Encounter for antineoplastic chemotherapy
CPT/HCPCS: 36592; 80053; 84443; 85025; 96367; 96372; 96374; 96375; 96413; 96417; 99214; J1100; J1200; J1453; J1642; J2469; J3420; J3490; J7040; J7050; J9045; J9271; J9305

== ENCOUNTER 2023-06-30 14:07 | Outpatient (CLI) | payer OTHER, SELFPAY ==
--- NOTE | 2023-06-30 15:15 | MR_ITS ---
WS: [id number] MRI BRAIN WITH AND WITHOUT CONTRAST HISTORY: treatment response eval COMPARISON: 12/03/2021 TECHNIQUE: Multiplanar imaging performed through the brain with MultiHance 17 ml's IV. No acute infarcts are seen. Grissom-white matter differentiation is well preserved. No restricted diffus ion. No acute infarct. Moderate small vessel ischemic disease and volume loss. Similar to the prior s tudy. Small lacunar infarct in the LEFT cerebellum. No susceptibility artifact. Ventricles and extra-axial spaces are prominent on the basis of atrophy. Clivus and pituitary gland are normal. Visualized posterior fossa and brainstem are also normal. Postcontrast images are negative for masses or vascular malformations. Dural venous sinuses are normal. Paranasal sinuses: Well aerated with no significant disease. Mastoid air cells: Normal. Calvarium and scalp: Normal. IMPRESSION: 1. No acute infarct or diffusion abnormalities. 2. No enhancing masses or metastatic disease to the brain. 3. Moderate atrophy and small vessel ischemic disease with minimal change since the prior study. The re is some motion artifact on several sequences but no acute interval change is identified.
[2023-06-30] MEDS: gadobenate dimeglumine 20 mL vial IV (16:06)
== END 2023-06-30 14:08 | disposition home or self-care (01) ==
LOC: RAD 14:08
PROVIDERS: PCP Family Medicine; Visit Provider Internal Medicine
DX: C34.11 Malignant neoplasm of upper lobe, right bronchus or lung (principal); I67.82 Cerebral ischemia
CPT/HCPCS: 70553; A9577

== ENCOUNTER 2023-07-08 09:45 | Oncology outpatient (recurring) (ONCR) | payer OTHER, SELFPAY ==
[2023-07-08 09:50] VITALS: BP 116/68; PULSE 73; RESP 16; TEMP 36.1; O2SAT 90
[2023-07-08 09:59] LABS: Basophils % 0.3 %; Eosinophils % 0.3 %; Hematocrit 35.1 % (37-53); Lymphocytes # 0.9 10^3/uL (0.8-4.8); Lymphocytes % 24.8 %; Mean Corpuscular HGB Conc 34.2 g/dL (30-55); Mean Corpuscular Volume 96.4 fl (82-101); Mean Platelet Volume 9.9 fL (7.4-10.4); Monocytes # 0.8 10^3/uL (0.2-0.9); Neutrophils # 1.97 10^3/uL (1.8-7.7); Neutrophils % 53.1 %; Nucleated Red Blood Cells % 0.5 %; Platelet Count 233 10^3/cmm (157-399); Red Blood Count 3.64 10^6/uL (3.85-5.65); Red Cell Distribution Width 17.9 % (12.1-15.1); White Blood Count 3.71 10^3/uL (3.29-11.43)
[2023-07-08 11:20] LABS: Alanine Aminotransferase 21 U/L (0-41); Albumin Level 4.4 g/dL (3.5-5.2); Alkaline Phosphatase 39 U/L (40-130); Blood Urea Nitrogen 28 mg/dL (8-23); Calcium 9.5 mg/dL (8.5-10.5); Carbon Dioxide 24 mmol/L (22-29); Chloride 101 mmol/L (98-107); Globulin 2.4 g/dL (1.3-4.6); Glucose 210 mg/dL (65-115); Osmolality Calculated 296 mOsm/kg (285-295); Sodium 137 mmol/L (136-145); Total Bilirubin 0.7 mg/dL (0.15-1.2); Total Protein 6.8 g/dL (6.6-8.7)
[2023-07-08 11:22] LABS: Anion Gap 16.9 (5-19); Aspartate Amino Transferase 27 U/L (0-40); Potassium 4.9 mmol/L (3.5-5.1)
[2023-07-08] MEDS: sodium chloride 0.9% 500 ML 75 ML IV (12:18)
[2023-07-08] MEDS: diphenhydrAMINE 50 mg/mL SDV 1mL 25 MG IVP (12:22)
[2023-07-08] MEDS: palonosetron 0.25 mg/5 mL SDV IVP (12:23)
[2023-07-08] MEDS: famotidine 20 mg/2 mL INJ IVP (12:27)
[2023-07-08] MEDS: fosaprepitant 150 MG in sodium chloride 0.9% 150 ML 300 MG IV (12:32)
[2023-07-08] MEDS: OLANZapine 5 mg TABLET PO (12:37)
[2023-07-08] MEDS: pembrolizumab 200 MG in sodium chloride 0.9% 250 ML 516 MG IV (13:49)
[2023-07-08] MEDS: SODIUM CHLORIDE 0.9% IV (14:38)
[2023-07-08] MEDS: PEMETREXED DISODIUM IV (14:38)
[2023-07-08 16:45] VITALS: BP 143/57; PULSE 61; RESP 17; TEMP 35.7; O2SAT 93
== END 2023-07-08 23:59 | disposition home or self-care (01) ==
PROVIDERS: Nurse Practitioner Family; PCP Family Medicine; Visit Provider Internal Medicine Medical Oncology
DX: Z53.9 Procedure and treatment not carried out, unspecified reason (principal); Z45.2 Encounter for adjustment and management of vascular access device; C34.11 Malignant neoplasm of upper lobe, right bronchus or lung; E03.9 Hypothyroidism, unspecified; Z79.899 Other long term (current) drug therapy
CPT/HCPCS: 80053; 85025; 96367; 96375; 96413; 96417; 99214; J1100; J1200; J1453; J1642; J2469; J3490; J7040; J7050; J9045; J9271; J9305

== ENCOUNTER 2023-07-16 11:01 | Oncology outpatient (recurring) (ONCR) | payer OTHER, SELFPAY ==
[2023-07-16 11:50] VITALS: BP 105/61; PULSE 68; RESP 18; TEMP 36.2; O2SAT 97
[2023-07-16 11:56] LABS: Basophils % 1.2 %; Eosinophils # 0.1 10^3/uL (0.0-0.8); Eosinophils % 3.7 %; Hematocrit 34.7 % (37-53); Lymphocytes # 0.8 10^3/uL (0.8-4.8); Lymphocytes % 34.3 %; Mean Corpuscular HGB Conc 33.7 g/dL (30-55); Mean Corpuscular Hemoglobin 32.1 pg (27-33); Mean Corpuscular Volume 95.3 fl (82-101); Mean Platelet Volume 9.2 fL (7.4-10.4); Monocytes # 0.2 10^3/uL (0.2-0.9); Monocytes % 9.8 %; Neutrophils # 1.24 10^3/uL (1.8-7.7); Neutrophils % 50.6 %; Nucleated Red Blood Cells % 0 %; Platelet Count 129 10^3/cmm (157-399); Red Blood Count 3.64 10^6/uL (3.85-5.65); Red Cell Distribution Width 15.5 % (12.1-15.1); White Blood Count 2.45 10^3/uL (3.29-11.43)
[2023-07-16 12:17] LABS: Alanine Aminotransferase 23 U/L (0-41); Albumin Level 4.2 g/dL (3.5-5.2); Alkaline Phosphatase 39 U/L (40-130); Anion Gap 13.6 (5-19); Aspartate Amino Transferase 21 U/L (0-40); Blood Urea Nitrogen 25 mg/dL (8-23); Carbon Dioxide 26 mmol/L (22-29); Chloride 104 mmol/L (98-107); Globulin 2.3 g/dL (1.3-4.6); Glucose 204 mg/dL (65-115); Osmolality Calculated 298 mOsm/kg (285-295); Potassium 4.6 mmol/L (3.5-5.1); Sodium 139 mmol/L (136-145); Total Bilirubin 0.9 mg/dL (0.15-1.2); Total Protein 6.5 g/dL (6.6-8.7)
== END 2023-07-22 23:59 | disposition home or self-care (01) ==
PROVIDERS: Internal Medicine; PCP Family Medicine; Visit Provider Internal Medicine Medical Oncology
DX: C34.11 Malignant neoplasm of upper lobe, right bronchus or lung (principal)
CPT/HCPCS: 36592; 80053; 85025; J1642

== ENCOUNTER 2023-07-28 11:35 | Outpatient (CLI) | payer OTHER, SELFPAY ==
--- NOTE | 2023-07-28 12:30 | PETR_ITS ---
PROCEDURE INFORMATION: Exam: PET/CT Skull Base to Mid-thigh Exam date and time: 07/28/2023 1:13 PM Age: 83 years old Clinical indication: Condition or disease; Primary cancer: Malignant neoplasm of colon; Follow-up oncological assessment; Prior surgery; Surgery date: 6+ months; Surgery type: Left hip, RT upper lobectomy. Cabg. Coronary stent. ; Additional info: Treatment response LABS AND CLINICAL REPORTS: Glucose: 146 mg/dl Treatment strategy for malignancy (PET staging): Restaging (PS) TECHNIQUE: Imaging protocol: Following at least four-hour fasting and following the injection of radiopharmaceutical, low dose CT images were obtained. Then, PET images were obtained. Attenuation corrected images were constructed using the CT scan. Fused images of PET and CT were reviewed. The standardized uptake values (SUV) reported below are maximum values within a region of interest, expressed in gm/ml. Exam includes orbital meatal line to mid-thigh. Radiopharmaceutical: 15.45 mCi F-18 FDG (Fluorodeoxyglucose), IV. Time of imaging post radiopharmaceutical administration: 1 hour Injection site: Not specified COMPARISON: MRI head 06/30/2023, CTA chest 01/09/2023, left hip CT 03/31/2023, [facility] [id number] 11/08/2022 12:17 PM, CT chest, abdomen and pelvis 09/15/2022, left hip CT 05/01/2022 FINDINGS: Tubes, catheters and devices: A right sided PICC line terminates in the SVC. Brain: Visualized brain has normal physiologic uptake. Pharynx: No abnormal uptake. Larynx: No abnormal uptake. Lungs, pleura and trachea: No abnormal uptake. There are postoperative changes of right upper lobectomy. [id number] bilateral centrilobular emphysematous changes are noted Heart: Normal physiologic uptake. Mediastinal space: No abnormal uptake. Liver: No abnormal uptake. Non radiotracer avid rounded regions of low-density in the liver are present for example in the left lobe posteriorly measuring 1.3 cm in diameter on series 3, image 124 and in the superior right lobe measuring 1.2 cm on series 3, image 113 without elevated uptake likely representing benign cysts or hemangiomas. Gallbladder and bile ducts: No abnormal uptake. Stones in the gallbladder are noted. Pancreas: No abnormal uptake. Spleen: No abnormal uptake. Adrenal glands: No abnormal uptake. Kidneys and ureters: Normal physiologic uptake. Stomach and bowel: No abnormal uptake. There are scattered colonic diverticula. Vasculature: No abnormal uptake. There are diffuse atherosclerotic changes including within the coronary arteries. A prominent caliber of the right pulmonary artery is noted. A stent in the left superficial femoral artery is noted. Lymph nodes: A previously identified prominent left external iliac chain lymph node on the prior PET-CT currently measures approximately 1.2 x 0.9 cm (previously 2.0 x 1.5 cm and is no longer radiotracer avid, SUV max 0.7 (previously 6.9). Bones/joints: Postoperative changes of total left hip arthroplasty are noted. Elevated uptake in the region of the greater trochanter on the left is noted, SUV max 5.3 (previously 5.6) corresponding to a region of ovoid subcortical sclerosis measuring approximately 2.7 x 0.8 cm in the axial plane on series 3, image 227. This region of sclerotic density may be slightly more prominent than on the prior PET-CT. Similar cortical irregularity is identified in the region of the lesser trochanter of the left femur for example on series 3, image 230 without elevated uptake similar to the prior PET-CT. A low-density/primarily fat density non radiotracer avid right femoral neck circumscribed lesion is similar to the prior PET-CT measuring 2.3 x 1.8 cm on series 3, image 215. Degenerative appearing sclerosis and osteophyte formation at the sacroiliac joints is present. Degenerative changes in the spine are noted. Sternotomy wires are noted. There appear to be postoperative changes of previous osteotomies involving posterior right-sided ribs without elevated uptake. Soft tissues: There is decreased uptake in the soft tissues of the proximal left thigh surrounding the left hip prosthesis without a well-defined lesion on the CT images, SUV max 3.1 (previously 7.1). METRICS: Mediastinal blood pool: SUV max 2.1 PET/[facility] SUBSEQ [id number] IMPRESSION: 1. Interval decrease in size of a previously noted left external iliac chain lymph node which is no longer radiotracer avid. This may represent a response to therapy within a metastatic lymph node or interval resolution of inflammatory or infectious involvement. 2. Uptake in the greater trochanter is noted on the left within a region of subtle sclerosis which may be slightly more prominent than on the prior PET-CT. Uptake in this region is persistent but slightly decreased (SUV max 5.3, previously 5.6). Although assessment is limited by the presence of metallic artifact related to the prosthesis, a metastatic lesion in this location cannot be excluded. 3. Similar cortical irregularity of the left lesser trochanter which continues to be non radiotracer avid. 4. Interval decrease in uptake within the soft tissues surrounding the left femoral prosthesis which may represent decreased inflammatory changes. 5. Additional nonurgent findings as detailed above.
== END 2023-07-28 11:36 | disposition home or self-care (01) ==
LOC: RAD 11:35
PROVIDERS: PCP Family Medicine; Visit Provider Internal Medicine
DX: C34.11 Malignant neoplasm of upper lobe, right bronchus or lung (principal); C79.51 Secondary malignant neoplasm of bone
CPT/HCPCS: 78815; A9552

== ENCOUNTER 2023-08-05 10:00 | Oncology outpatient (recurring) (ONCR) | payer OTHER, SELFPAY ==
[2023-07-29 08:39] LABS: Basophils % 0.8 %; Eosinophils # 0.1 10^3/uL (0.0-0.8); Eosinophils % 4.7 %; Hematocrit 34.8 % (37-53); Lymphocytes # 0.8 10^3/uL (0.8-4.8); Lymphocytes % 32.3 %; Mean Corpuscular HGB Conc 33.9 g/dL (30-55); Mean Corpuscular Hemoglobin 33.6 pg (27-33); Mean Corpuscular Volume 99.1 fl (82-101); Mean Platelet Volume 9.9 fL (7.4-10.4); Monocytes # 0.5 10^3/uL (0.2-0.9); Neutrophils # 1.03 10^3/uL (1.8-7.7); Nucleated Red Blood Cells % 0.8 %; Platelet Count 238 10^3/cmm (157-399); Red Blood Count 3.51 10^6/uL (3.85-5.65); Red Cell Distribution Width 18.4 % (12.1-15.1); White Blood Count 2.57 10^3/uL (3.29-11.43)
[2023-07-29 09:09] LABS: Alanine Aminotransferase 23 U/L (0-41); Albumin Level 4.3 g/dL (3.5-5.2); Alkaline Phosphatase 34 U/L (40-130); Anion Gap 16.5 (5-19); Aspartate Amino Transferase 20 U/L (0-40); Blood Urea Nitrogen 23 mg/dL (8-23); Calcium 9.3 mg/dL (8.5-10.5); Carbon Dioxide 25 mmol/L (22-29); Chloride 100 mmol/L (98-107); Globulin 2.4 g/dL (1.3-4.6); Glucose 242 mg/dL (65-115); Osmolality Calculated 296 mOsm/kg (285-295); Potassium 4.5 mmol/L (3.5-5.1); Sodium 137 mmol/L (136-145); Thyroid Stimulating Hormone 7.13 uIU/mL (0.27-4.20); Total Bilirubin 0.6 mg/dL (0.15-1.2); Total Protein 6.7 g/dL (6.6-8.7)
[2023-08-05 10:28] LABS: Basophils # 0.1 10^3/uL (0.0-0.1); Basophils % 1.3 %; Eosinophils # 0.1 10^3/uL (0.0-0.8); Eosinophils % 1.6 %; Hematocrit 38.3 % (37-53); Lymphocytes # 0.8 10^3/uL (0.8-4.8); Lymphocytes % 20.3 %; Mean Corpuscular HGB Conc 33.4 g/dL (30-55); Mean Corpuscular Hemoglobin 33.6 pg (27-33); Mean Corpuscular Volume 100.5 fl (82-101); Mean Platelet Volume 9.4 fL (7.4-10.4); Monocytes # 0.6 10^3/uL (0.2-0.9); Monocytes % 16.8 %; Neutrophils # 2.23 10^3/uL (1.8-7.7); Neutrophils % 59.5 %; Nucleated Red Blood Cells % 0 %; Platelet Count 216 10^3/cmm (157-399); Red Blood Count 3.81 10^6/uL (3.85-5.65); Red Cell Distribution Width 16.8 % (12.1-15.1); White Blood Count 3.75 10^3/uL (3.29-11.43)
[2023-08-05 10:30] VITALS: BP 111/54; PULSE 61; RESP 16; TEMP 36.3; O2SAT 93
[2023-08-05 11:00] LABS: Alanine Aminotransferase 19 U/L (0-41); Albumin Level 4.3 g/dL (3.5-5.2); Alkaline Phosphatase 34 U/L (40-130); Aspartate Amino Transferase 23 U/L (0-40); Blood Urea Nitrogen 24 mg/dL (8-23); Calcium 9.2 mg/dL (8.5-10.5); Carbon Dioxide 26 mmol/L (22-29); Chloride 103 mmol/L (98-107); Globulin 2.5 g/dL (1.3-4.6); Glucose 201 mg/dL (65-115); Osmolality Calculated 300 mOsm/kg (285-295); Sodium 140 mmol/L (136-145); Thyroid Stimulating Hormone 5.52 uIU/mL (0.27-4.20); Total Bilirubin 0.5 mg/dL (0.15-1.2); Total Protein 6.8 g/dL (6.6-8.7)
[2023-08-05 11:01] LABS: Anion Gap 15.6 (5-19); Potassium 4.6 mmol/L (3.5-5.1)
[2023-08-05] MEDS: sodium chloride 0.9% 250 ML 75 ML IV (11:43)
[2023-08-05] MEDS: diphenhydrAMINE 50 mg/mL SDV 1mL 25 MG IVP (11:45)
[2023-08-05] MEDS: palonosetron 0.25 mg/5 mL SDV IVP (11:49)
[2023-08-05] MEDS: famotidine 20 mg/2 mL INJ IVP (11:52)
[2023-08-05] MEDS: OLANZapine 5 mg TABLET PO (11:56)
[2023-08-05] MEDS: fosaprepitant 150 MG in sodium chloride 0.9% 150 ML 300 MG IV (12:18)
[2023-08-05] MEDS: pembrolizumab 200 MG in sodium chloride 0.9% 250 ML 516 MG IV (13:09)
[2023-08-05] MEDS: PEMETREXED DISODIUM IV (13:57)
[2023-08-05] MEDS: SODIUM CHLORIDE 0.9% IV ×2 (13:57→14:24)
[2023-08-05] MEDS: CARBOPLATIN IV (14:24)
[2023-08-05 16:27] VITALS: BP 131/59; PULSE 66; RESP 20; O2SAT 92
== END 2023-08-05 23:59 | disposition home or self-care (01) ==
PROVIDERS: Nurse Practitioner Family; PCP Family Medicine; Visit Provider Internal Medicine Medical Oncology
DX: C34.11 Malignant neoplasm of upper lobe, right bronchus or lung (principal); Z53.9 Procedure and treatment not carried out, unspecified reason; Z51.11 Encounter for antineoplastic chemotherapy; Z51.12 Encounter for antineoplastic immunotherapy; Z95.828 Presence of other vascular implants and grafts; Z79.899 Other long term (current) drug therapy; Z79.52 Long term (current) use of systemic steroids
CPT/HCPCS: 80053; 84443; 85025; 96367; 96375; 96413; 96415; 99214; A4222; J1100; J1200; J1453; J2469; J3490; J7040; J7050; J9045; J9271; J9305

== ENCOUNTER 2023-09-02 08:30 | Oncology outpatient (recurring) (ONCR) | payer OTHER, SELFPAY ==
[2023-09-02 08:58] LABS: Basophils # 0.1 10^3/uL (0.0-0.1); Basophils % 1.4 %; Eosinophils # 0.1 10^3/uL (0.0-0.8); Hematocrit 41.6 % (37-53); Lymphocytes # 0.8 10^3/uL (0.8-4.8); Lymphocytes % 21.9 %; Mean Corpuscular HGB Conc 32.5 g/dL (30-55); Mean Corpuscular Volume 101.7 fl (82-101); Mean Platelet Volume 9.4 fL (7.4-10.4); Monocytes # 0.7 10^3/uL (0.2-0.9); Monocytes % 18.7 %; Neutrophils # 1.92 10^3/uL (1.8-7.7); Neutrophils % 55.4 %; Nucleated Red Blood Cells % 0 %; Platelet Count 195 10^3/cmm (157-399); Red Blood Count 4.09 10^6/uL (3.85-5.65); Red Cell Distribution Width 16.4 % (12.1-15.1); White Blood Count 3.47 10^3/uL (3.29-11.43)
[2023-09-02 09:39] LABS: Alanine Aminotransferase 13 U/L (0-41); Albumin Level 4.2 g/dL (3.5-5.2); Alkaline Phosphatase 33 U/L (40-130); Blood Urea Nitrogen 22 mg/dL (8-23); Carbon Dioxide 25 mmol/L (22-29); Chloride 101 mmol/L (98-107); Globulin 2.5 g/dL (1.3-4.6); Glucose 92 mg/dL (65-115); Osmolality Calculated 285 mOsm/kg (285-295); Sodium 136 mmol/L (136-145); Thyroid Stimulating Hormone 5.23 uIU/mL (0.27-4.20); Total Bilirubin 0.5 mg/dL (0.15-1.2); Total Protein 6.7 g/dL (6.6-8.7)
[2023-09-02 10:04] LABS: Anion Gap 14.2 (5-19); Aspartate Amino Transferase 23 U/L (0-40); Potassium 4.2 mmol/L (3.5-5.1)
[2023-09-02] MEDS: sodium chloride 0.9% 250 ML 75 ML IV (13:14)
[2023-09-02] MEDS: cyanocobalamin 1,000 mcg/mL SDV 1000 MCG IM (13:20)
[2023-09-02] MEDS: denosumab 120 mg SDV SUBCUT (13:21)
[2023-09-02] MEDS: pembrolizumab 200 MG in sodium chloride 0.9% 250 ML 516 MG IV (13:48)
[2023-09-02] MEDS: PEMETREXED DISODIUM IV (14:32)
[2023-09-02] MEDS: SODIUM CHLORIDE 0.9% IV (14:32)
== END 2023-09-02 23:59 | disposition home or self-care (01) ==
PROVIDERS: PCP Family Medicine; Visit Provider Internal Medicine Medical Oncology
DX: C34.11 Malignant neoplasm of upper lobe, right bronchus or lung (principal); Z53.9 Procedure and treatment not carried out, unspecified reason; Z79.899 Other long term (current) drug therapy; L60.3 Nail dystrophy; E11.42 Type 2 diabetes mellitus with diabetic polyneuropathy; E11.51 Type 2 diabetes mellitus with diabetic peripheral angiopathy without gangrene
CPT/HCPCS: 11721; 80053; 84443; 85025; 96367; 96372; 96411; 96413; 99214; A4222; J0897; J1100; J3420; J7050; J9271; J9305

== ENCOUNTER 2023-09-03 11:32 | Oncology outpatient (recurring) (ONCR) | payer OTHER, SELFPAY | END 2023-09-20 23:59 | disposition home or self-care (01) | LOC: ONCMED 11:32 | PROVIDERS: PCP Family Medicine; Visit Provider Internal Medicine Medical Oncology | DX: Z79.899 Other long term (current) drug therapy (principal) | CPT/HCPCS: 36415; 85520 ==

== ENCOUNTER → 2023-09-26 11:35 | Outpatient (BNVA) | payer OTHER, SELFPAY | PROVIDERS: PCP Family Medicine; Visit Provider Emergency Medicine | DX: R09.81 Nasal congestion (principal); J10.1 Influenza due to other identified influenza virus with other respiratory manifestations | CPT/HCPCS: 87400; 87426 ==

== ENCOUNTER 2023-09-30 09:09 | Oncology outpatient (recurring) (ONCR) | payer OTHER, SELFPAY ==
[2023-09-30 10:19] LABS: Basophils # 0.1 10^3/uL (0.0-0.1); Basophils % 1.1 %; Eosinophils # 0.2 10^3/uL (0.0-0.8); Eosinophils % 5.1 %; Hematocrit 41.5 % (37-53); Lymphocytes # 0.7 10^3/uL (0.8-4.8); Lymphocytes % 14.5 %; Mean Corpuscular HGB Conc 33.5 g/dL (30-55); Mean Corpuscular Hemoglobin 33.9 pg (27-33); Mean Corpuscular Volume 101.2 fl (82-101); Mean Platelet Volume 10.5 fL (7.4-10.4); Monocytes # 0.5 10^3/uL (0.2-0.9); Monocytes % 11.6 %; Neutrophils # 3.01 10^3/uL (1.8-7.7); Neutrophils % 67.5 %; Nucleated Red Blood Cells % 0 %; Platelet Count 146 10^3/cmm (157-399); Red Cell Distribution Width 16.3 % (12.1-15.1); White Blood Count 4.47 10^3/uL (3.29-11.43)
[2023-09-30 10:45] LABS: Thyroid Stimulating Hormone 2.87 uIU/mL (0.27-4.20)
[2023-09-30] MEDS: denosumab 120 mg SDV SUBCUT (11:31)
[2023-09-30 12:05] LABS: Alanine Aminotransferase 16 U/L (0-41); Albumin Level 4.2 g/dL (3.5-5.2); Alkaline Phosphatase 41 U/L (40-130); Anion Gap 15.8 (5-19); Aspartate Amino Transferase 26 U/L (0-40); Blood Urea Nitrogen 15 mg/dL (8-23); Calcium 9.6 mg/dL (8.5-10.5); Carbon Dioxide 26 mmol/L (22-29); Chloride 104 mmol/L (98-107); Creatinine Clr Calc Pharmacy 59.4097; Globulin 2.5 g/dL (1.3-4.6); Glucose 260 mg/dL (65-115); Osmolality Calculated 304 mOsm/kg (285-295); Potassium 3.8 mmol/L (3.5-5.1); Sodium 142 mmol/L (136-145); Total Bilirubin 0.9 mg/dL (0.15-1.2); Total Protein 6.7 g/dL (6.6-8.7)
[2023-09-30] MEDS: pembrolizumab 200 MG in sodium chloride 0.9% 250 ML 516 MG IV (12:32)
[2023-09-30] MEDS: PEMETREXED DISODIUM IV (13:22)
[2023-09-30] MEDS: SODIUM CHLORIDE 0.9% IV (13:22)
[2023-09-30 15:05] VITALS: BP 121/78; PULSE 84; RESP 18; TEMP 36.6; O2SAT 98
== END 2023-09-30 23:59 | disposition home or self-care (01) ==
PROVIDERS: Nurse Practitioner Family; PCP Family Medicine; Visit Provider Internal Medicine Medical Oncology
DX: Z53.9 Procedure and treatment not carried out, unspecified reason (principal); C34.11 Malignant neoplasm of upper lobe, right bronchus or lung; Z79.899 Other long term (current) drug therapy
CPT/HCPCS: 80053; 84443; 85025; 96367; 96368; 96372; 96375; 96413; A4222; J0897; J1100; J7050; J9271; J9305

== ENCOUNTER → 2023-10-09 14:29 | Outpatient (BNVA) | payer OTHER, SELFPAY | PROVIDERS: PCP Family Medicine; Visit Provider Nurse Practitioner | DX: R06.02 Shortness of breath (principal) | CPT/HCPCS: 71046 ==

== ENCOUNTER 2023-10-21 08:37 | Oncology outpatient (recurring) (ONCR) | payer OTHER, SELFPAY ==
[2023-10-21 09:06] LABS: Basophils % 0.5 %; Eosinophils # 0.3 10^3/uL (0.0-0.8); Eosinophils % 7.8 %; Hematocrit 38.9 % (37-53); Lymphocytes # 0.9 10^3/uL (0.8-4.8); Lymphocytes % 23.1 %; Mean Corpuscular HGB Conc 32.9 g/dL (30-55); Mean Corpuscular Hemoglobin 33.5 pg (27-33); Mean Corpuscular Volume 101.8 fl (82-101); Mean Platelet Volume 9.8 fL (7.4-10.4); Monocytes # 0.6 10^3/uL (0.2-0.9); Monocytes % 16.4 %; Neutrophils # 1.92 10^3/uL (1.8-7.7); Neutrophils % 51.7 %; Nucleated Red Blood Cells % 0 %; Platelet Count 241 10^3/cmm (157-399); Red Blood Count 3.82 10^6/uL (3.85-5.65); Red Cell Distribution Width 17.3 % (12.1-15.1); White Blood Count 3.72 10^3/uL (3.29-11.43)
[2023-10-21 09:35] LABS: Alanine Aminotransferase 17 U/L (0-41); Albumin Level 3.9 g/dL (3.5-5.2); Alkaline Phosphatase 43 U/L (40-130); Aspartate Amino Transferase 27 U/L (0-40); Blood Urea Nitrogen 14 mg/dL (8-23); Calcium 9.4 mg/dL (8.5-10.5); Carbon Dioxide 28 mmol/L (22-29); Chloride 103 mmol/L (98-107); Globulin 2.7 g/dL (1.3-4.6); Glucose 99 mg/dL (65-115); Osmolality Calculated 291 mOsm/kg (285-295); Sodium 140 mmol/L (136-145); Thyroid Stimulating Hormone 2.22 uIU/mL (0.27-4.20); Total Bilirubin 0.8 mg/dL (0.15-1.2); Total Protein 6.6 g/dL (6.6-8.7)
[2023-10-21] MEDS: sodium chloride 0.9% 250 ML 75 ML IV (11:15)
[2023-10-21] MEDS: pembrolizumab 200 MG in sodium chloride 0.9% 250 ML 516 MG IV (11:45)
[2023-10-21] MEDS: PEMETREXED DISODIUM IV (12:28)
[2023-10-21] MEDS: SODIUM CHLORIDE 0.9% IV (12:28)
[2023-10-21 13:08] VITALS: BP 122/65; PULSE 69; RESP 17; TEMP 36.4; O2SAT 94
== END 2023-10-21 23:59 | disposition home or self-care (01) ==
PROVIDERS: Nurse Practitioner Family; PCP Family Medicine; Visit Provider Internal Medicine Medical Oncology
DX: Z51.12 Encounter for antineoplastic immunotherapy (principal); C34.11 Malignant neoplasm of upper lobe, right bronchus or lung; C79.51 Secondary malignant neoplasm of bone
CPT/HCPCS: 80053; 84443; 85025; 96367; 96413; 96417; A4222; J1100; J7050; J9271; J9305

== ENCOUNTER 2023-12-02 09:01 | Oncology outpatient (recurring) (ONCR) | payer OTHER, SELFPAY ==
[2023-12-02 09:44] LABS: Basophils # 0.1 10^3/uL (0.0-0.1); Basophils % 1.5 %; Eosinophils # 0.2 10^3/uL (0.0-0.8); Eosinophils % 3.4 %; Hematocrit 39.4 % (37-53); Lymphocytes # 1.1 10^3/uL (0.8-4.8); Lymphocytes % 17.3 %; Mean Corpuscular Hemoglobin 32.6 pg (27-33); Mean Corpuscular Volume 102.1 fl (82-101); Monocytes # 0.6 10^3/uL (0.2-0.9); Monocytes % 9.5 %; Neutrophils # 4.21 10^3/uL (1.8-7.7); Nucleated Red Blood Cells % 0 %; Platelet Count 185 10^3/cmm (157-399); Red Blood Count 3.86 10^6/uL (3.85-5.65); Red Cell Distribution Width 15.8 % (12.1-15.1); White Blood Count 6.19 10^3/uL (3.29-11.43)
[2023-12-02 10:08] LABS: Alanine Aminotransferase 12 U/L (0-41); Alkaline Phosphatase 46 U/L (40-130); Blood Urea Nitrogen 13 mg/dL (8-23); Calcium 9.1 mg/dL (8.5-10.5); Carbon Dioxide 26 mmol/L (22-29); Chloride 106 mmol/L (98-107); Globulin 2.8 g/dL (1.3-4.6); Glucose 129 mg/dL (65-115); Osmolality Calculated 300 mOsm/kg (285-295); Sodium 144 mmol/L (136-145); Total Bilirubin 0.8 mg/dL (0.15-1.2); Total Protein 6.8 g/dL (6.6-8.7)
[2023-12-02 10:26] LABS: Anion Gap 16.4 (5-19); Aspartate Amino Transferase 23 U/L (0-40); Lactate Dehydrogenase 361 U/L (135-225); Potassium 4.4 mmol/L (3.5-5.1)
[2023-12-02] MEDS: sodium chloride 0.9% 250 ML 75 ML IV (11:27)
[2023-12-02] MEDS: dexamethasone 4 mg/mL INJ 5 mL 12 MG IV (11:29)
[2023-12-02] MEDS: pembrolizumab 200 MG in sodium chloride 0.9% 250 ML 516 MG IV (11:41)
[2023-12-02] MEDS: PEMETREXED DISODIUM IV (12:26)
[2023-12-02] MEDS: SODIUM CHLORIDE 0.9% IV (12:26)
[2023-12-02] MEDS: denosumab 120 mg SDV SUBCUT (13:26)
[2023-12-02 13:38] VITALS: BP 123/72; PULSE 74; RESP 18; TEMP 35.8; O2SAT 95
== END 2023-12-02 23:59 | disposition home or self-care (01) ==
PROVIDERS: Nurse Practitioner Family; PCP Family Medicine; Visit Provider Internal Medicine Medical Oncology
DX: C34.11 Malignant neoplasm of upper lobe, right bronchus or lung (principal); C79.51 Secondary malignant neoplasm of bone; Z79.899 Other long term (current) drug therapy; Z79.52 Long term (current) use of systemic steroids; Z51.12 Encounter for antineoplastic immunotherapy
CPT/HCPCS: 80053; 83615; 85025; 96372; 96375; 96413; 96417; 99214; J0897; J1100; J7050; J9271; J9305

== ENCOUNTER 2023-12-11 11:13 | Oncology outpatient (recurring) (ONCR) | payer OTHER, SELFPAY ==
[2023-12-11] MEDS: iohexol 350 mg/mL 500 mL Btl (per mL) PO (11:33)
[2023-12-11] MEDS: iohexol 350 mg/mL 500 mL Btl (per mL) IV (12:38)
--- NOTE | 2023-12-11 13:00 | CTR_ITS ---
PROCEDURE INFORMATION: Exam: CT Chest With Contrast; Diagnostic Exam date and time: 12/11/2023 12:32 PM Age: 83 years old Clinical indication: Condition or disease; Other: Bone cancer; Prior surgery; Surgery date: 6+ months; Surgery type: Appy; Patient HX: Bone CA chemo ending x2 wks ago (he thinks); Additional info: Surveillance TECHNIQUE: Imaging protocol: Diagnostic computed tomography of the chest with contrast. Radiation optimization: All CT scans at this facility use at least one of these dose optimization techniques: automated exposure control; mA and/or kV adjustment per patient size (includes targeted exams where dose is matched to clinical indication); or iterative reconstruction. Contrast material: OMNI 350; Contrast volume: 95 ml; Contrast route: INTRAVENOUS (IV); COMPARISON: 1. PT PET skull to thigh SUBS [id number] 07/28/2023 1:[address] angio chest PE protcl [id number] 01/09/2023 11:43 PM RADIATION DOSE METRICS: Total DLP (mGy-cm): 958.36 FINDINGS: Thyroid: No significant thyroid pathology. Lungs: Features of prior right upper lobectomy again seen. Volume loss hemithorax again noted. Severe pulmonary emphysema is present. Stable 4 mm right lobe nodule on series 433. Stable 4 mm left lower lobe nodule series 4, image 35 stable 4 mm left lower lobe nodule series 4, image 36. no new or enlarging pulmonary nodule. Pleural spaces: Minimal right pleural thickening without significant change. No discrete effusion evident. Heart: Unremarkable. No cardiomegaly. No pericardial effusion. Coronary arteries: Coronary artery calcifications. Esophagus: Mural thickening distal thoracic esophagus. Lymph nodes: No evidence of lymphadenopathy. Vasculature: No evidence of thoracic aortic aneurysm. Bones/joints: Mild degenerative change present in the spine. No bony metastasis evident. Prior median sternotomy. Soft tissues: Unremarkable. Other findings: Evaluation limited by respiratory degradation. PROCEDURE INFORMATION: Exam: CT Abdomen And Pelvis With Contrast Exam date and time: 12/11/2023 12:32 PM Age: 83 years old Clinical indication: Condition or disease; Other: Bone cancer; Prior surgery; Surgery date: 6+ months; Surgery type: Appy; Patient HX: Bone CA chemo ending x2 wks ago (he thinks); Additional info: Surveillance TECHNIQUE: Imaging protocol: Computed tomography of the abdomen and pelvis with contrast. Radiation optimization: All CT scans at this facility use at least one of these dose optimization techniques: automated exposure control; mA and/or kV adjustment per patient size (includes targeted exams where dose is matched to clinical indication); or iterative reconstruction. Contrast material: OMNI 350; Contrast volume: 95 ml; Contrast route: INTRAVENOUS (IV); COMPARISON: 1. PT PET skull to thigh SUBS [id number] 07/28/2023 1:[address] [place] [id number] 09/15/2022 4:10 PM RADIATION DOSE METRICS: Total DLP (mGy-cm): 958.36 FINDINGS: Lungs: Visualized lung bases are free of significant pathology. Liver: Stable appearance of hepatic cysts and indeterminate subcentimeter hypodensities given changes in technique. Gallbladder and biliary ducts: Cholelithiasis. No biliary dilatation. Pancreas: No significant pancreatic pathology. Spleen: No significant splenic pathology. Adrenal glands: No significant adrenal pathology. Kidneys and ureters: Mild areas of renal cortical scar. Stomach and bowel: Colonic diverticulosis without evidence of focal inflammatory change. Moderate amount of colonic stool. Appendix: No appendiceal pathology evident. Intraperitoneal space: No ascites. Vasculature: IVC filter is in place. No abdominal aortic aneurysm. Lymph nodes: No evidence of lymphadenopathy. Urinary bladder: Mild bladder wall thickening. Reproductive: Prostate is mildly enlarged. Bones/joints: Left hip replacement with associated artifact partially obscuring adjacent anatomy. There is a focal lytic lesion along the lateral aspect proximal femoral stem in the subtrochanteric region on series 5, image 97, slightly increased compared with the prior exam. Another focal lytic structure is present posterior to the proximal femoral stem on series 5, image 91, with interval improvement in mineralization in this region compared with the prior study. There is a lytic structure posterior to the prosthesis in the proximal shaft on series 5, image 103 within the cortex, not anatomically covered on prior exam precluding comparison. Stable lytic structure in the right femoral neck on series 5, image 85 appearance favoring benign pathology. Areas of sclerosis in the anterior sacrum bilaterally joining the sacroiliac joints noted without change. Soft tissues: Tiny fat containing umbilical hernia. Moderate fat containing right inguinal hernia. CT/CT chest abdpel w/*[id number] IMPRESSION: No strong evidence of metastatic disease or significant interval change. Stable small pulmonary nodules and features of prior right upper lobectomy. Stable minor findings including severe pulmonary emphysema and areas of scarring. IMPRESSION: 1. Indeterminate lytic structures in the proximal left femur abutting the femoral prosthesis as detailed above. Findings may represent metastatic disease or benign pathology such as particle disease. 2. Multiple stable minor findings described above including cholelithiasis and colonic diverticulosis. COMMENTS: For patients with an IVC filter, recommend assessment for a management plan for the patient's IVC filter. If there is no established management plan, recommend referral to an interventional clinician on a nonemergent basis for evaluation.
== END 2023-12-20 23:59 | disposition home or self-care (01) ==
LOC: RAD 12-16 12:07 → ONCMED 12-21 12:32
PROVIDERS: PCP Family Medicine; Visit Provider Nurse Practitioner Family
DX: Z79.899 Other long term (current) drug therapy (principal); C34.11 Malignant neoplasm of upper lobe, right bronchus or lung
CPT/HCPCS: 71260; 74177; Q9967

== ENCOUNTER → 2023-12-15 08:41 | Outpatient (BNVA) | payer OTHER, SELFPAY | PROVIDERS: PCP Family Medicine; Visit Provider Podiatrist Foot & Ankle Surgery | DX: L60.3 Nail dystrophy (principal); E11.42 Type 2 diabetes mellitus with diabetic polyneuropathy; I73.9 Peripheral vascular disease, unspecified | CPT/HCPCS: 11721 ==

== ENCOUNTER 2023-12-23 08:46 | Oncology outpatient (recurring) (ONCR) | payer OTHER, SELFPAY ==
[2023-12-23 09:10] LABS: Basophils % 0.5 %; Eosinophils # 0.4 10^3/uL (0.0-0.8); Eosinophils % 9.3 %; Hematocrit 33.9 % (37-53); Lymphocytes % 25.8 %; Mean Corpuscular HGB Conc 32.4 g/dL (30-55); Mean Corpuscular Hemoglobin 32.8 pg (27-33); Mean Corpuscular Volume 101.2 fl (82-101); Mean Platelet Volume 9.8 fL (7.4-10.4); Monocytes # 0.7 10^3/uL (0.2-0.9); Neutrophils # 1.87 10^3/uL (1.8-7.7); Neutrophils % 46.9 %; Nucleated Red Blood Cells % 0 %; Platelet Count 240 10^3/cmm (157-399); Red Blood Count 3.35 10^6/uL (3.85-5.65); Red Cell Distribution Width 17.8 % (12.1-15.1); White Blood Count 3.99 10^3/uL (3.29-11.43)
[2023-12-23 09:37] LABS: Alanine Aminotransferase 16 U/L (0-41); Alkaline Phosphatase 46 U/L (40-130); Aspartate Amino Transferase 26 U/L (0-40); Blood Urea Nitrogen 17 mg/dL (8-23); Calcium 8.7 mg/dL (8.5-10.5); Carbon Dioxide 27 mmol/L (22-29); Creatinine Clr Calc Pharmacy 52.5222; Globulin 2.7 g/dL (1.3-4.6); Glucose 103 mg/dL (65-115); Lactate Dehydrogenase 341 U/L (135-225); Total Bilirubin 0.6 mg/dL (0.15-1.2); Total Protein 6.7 g/dL (6.6-8.7)
[2023-12-23 09:51] LABS: Anion Gap 14.1 (5-19); Chloride 103 mmol/L (98-107); Osmolality Calculated 292 mOsm/kg (285-295); Potassium 4.1 mmol/L (3.5-5.1); Sodium 140 mmol/L (136-145)
[2023-12-23] MEDS: sodium chloride 0.9% 250 ML 100 ML IV (10:41)
[2023-12-23] MEDS: dexamethasone 4 mg/mL INJ 5 mL 12 MG IV (10:43)
[2023-12-23] MEDS: cyanocobalamin 1,000 mcg/mL SDV 1000 MCG IM (10:46)
[2023-12-23] MEDS: pembrolizumab 200 MG in sodium chloride 0.9% 250 ML 516 MG IV (11:22)
[2023-12-23] MEDS: PEMETREXED DISODIUM IV (12:04)
[2023-12-23] MEDS: SODIUM CHLORIDE 0.9% IV (12:04)
[2023-12-23 12:31] VITALS: BP 124/61; PULSE 66; RESP 18; TEMP 36.6; O2SAT 93
== END 2023-12-23 23:59 | disposition home or self-care (01) ==
PROVIDERS: PCP Family Medicine; Visit Provider Nurse Practitioner Family
DX: Z79.899 Other long term (current) drug therapy (principal); C34.11 Malignant neoplasm of upper lobe, right bronchus or lung; Z51.11 Encounter for antineoplastic chemotherapy; Z51.12 Encounter for antineoplastic immunotherapy; Z87.891 Personal history of nicotine dependence; C79.51 Secondary malignant neoplasm of bone; Z92.3 Personal history of irradiation; Z79.69 Long term (current) use of other immunomodulators and immunosuppressants
CPT/HCPCS: 80053; 83615; 85025; 96372; 96375; 96413; 96417; 99213; A4222; J1100; J3420; J7050; J9271; J9305

== ENCOUNTER 2024-01-13 07:15 | Oncology outpatient (recurring) (ONCR) | payer OTHER, SELFPAY ==
[2024-01-13 07:41] LABS: Basophils % 0.2 %; Eosinophils # 0.3 10^3/uL (0.0-0.8); Eosinophils % 6.8 %; Hematocrit 31.9 % (37-53); Mean Corpuscular Hemoglobin 33.2 pg (27-33); Mean Corpuscular Volume 103.9 fl (82-101); Mean Platelet Volume 10.1 fL (7.4-10.4); Monocytes # 0.9 10^3/uL (0.2-0.9); Monocytes % 18.6 %; Neutrophils % 50.7 %; Nucleated Red Blood Cells % 0.4 %; Platelet Count 258 10^3/cmm (157-399); Red Blood Count 3.07 10^6/uL (3.85-5.65); Red Cell Distribution Width 21.1 % (12.1-15.1); White Blood Count 4.73 10^3/uL (3.29-11.43)
[2024-01-13 08:00] LABS: Alanine Aminotransferase 24 U/L (0-41); Albumin Level 3.9 g/dL (3.5-5.2); Alkaline Phosphatase 46 U/L (40-130); Anion Gap 14.8 (5-19); Aspartate Amino Transferase 34 U/L (0-40); Blood Urea Nitrogen 14 mg/dL (8-23); Calcium 9.2 mg/dL (8.5-10.5); Carbon Dioxide 26 mmol/L (22-29); Chloride 105 mmol/L (98-107); Creatinine Clr Calc Pharmacy 57.7744; Globulin 2.7 g/dL (1.3-4.6); Glucose 98 mg/dL (65-115); Osmolality Calculated 294 mOsm/kg (285-295); Potassium 3.8 mmol/L (3.5-5.1); Sodium 142 mmol/L (136-145); Total Bilirubin 0.8 mg/dL (0.15-1.2); Total Protein 6.6 g/dL (6.6-8.7)
[2024-01-13] MEDS: sodium chloride 0.9% 250 ML 75 ML IV (10:26)
[2024-01-13] MEDS: dexamethasone 4 mg/mL INJ 5 mL 12 MG IV (10:28)
[2024-01-13] MEDS: pembrolizumab 200 MG in sodium chloride 0.9% 250 ML 516 MG IV (10:45)
[2024-01-13] MEDS: PEMETREXED DISODIUM IV (11:21)
[2024-01-13] MEDS: SODIUM CHLORIDE 0.9% IV (11:21)
[2024-01-13] MEDS: denosumab 120 mg SDV SUBCUT (12:08)
[2024-01-13 12:21] VITALS: BP 124/65; PULSE 70; RESP 17; TEMP 35.9; O2SAT 92
== END 2024-01-13 23:59 | disposition home or self-care (01) ==
PROVIDERS: Internal Medicine; PCP Family Medicine; Visit Provider Nurse Practitioner Family
DX: C34.11 Malignant neoplasm of upper lobe, right bronchus or lung (principal); R93.7 Abnormal findings on diagnostic imaging of other parts of musculoskeletal system; K80.20 Calculus of gallbladder without cholecystitis without obstruction; K57.30 Diverticulosis of large intestine without perforation or abscess without bleeding; C79.51 Secondary malignant neoplasm of bone; Z51.12 Encounter for antineoplastic immunotherapy; Z79.899 Other long term (current) drug therapy; Z79.52 Long term (current) use of systemic steroids; Z53.9 Procedure and treatment not carried out, unspecified reason
CPT/HCPCS: 80053; 85025; 96372; 96375; 96413; 96417; 99214; A4222; J0897; J1100; J7050; J9271; J9305

== ENCOUNTER 2024-02-03 09:38 | Oncology outpatient (recurring) (ONCR) | payer OTHER, SELFPAY ==
[2024-02-03 10:27] LABS: Eosinophils # 0.4 10^3/uL (0.0-0.8); Eosinophils % 10.5 %; Lymphocytes # 0.7 10^3/uL (0.8-4.8); Lymphocytes % 20.5 %; Mean Corpuscular HGB Conc 32.5 g/dL (30-55); Mean Corpuscular Hemoglobin 34.1 pg (27-33); Mean Corpuscular Volume 104.8 fl (82-101); Mean Platelet Volume 10.2 fL (7.4-10.4); Monocytes # 0.8 10^3/uL (0.2-0.9); Monocytes % 21.7 %; Neutrophils # 1.57 10^3/uL (1.8-7.7); Neutrophils % 44.7 %; Nucleated Red Blood Cells % 0.9 %; Platelet Count 225 10^3/cmm (157-399); Red Blood Count 2.29 10^6/uL (3.85-5.65); Red Cell Distribution Width 22.5 % (12.1-15.1); White Blood Count 3.51 10^3/uL (3.29-11.43)
[2024-02-03 10:44] LABS: Alanine Aminotransferase 10 U/L (0-41); Albumin Level 3.6 g/dL (3.5-5.2); Alkaline Phosphatase 52 U/L (40-130); Blood Urea Nitrogen 13 mg/dL (8-23); Calcium 7.9 mg/dL (8.5-10.5); Carbon Dioxide 26 mmol/L (22-29); Chloride 104 mmol/L (98-107); Creatinine Clr Calc Pharmacy 57.8793; Globulin 2.6 g/dL (1.3-4.6); Glucose 112 mg/dL (65-115); Osmolality Calculated 291 mOsm/kg (285-295); Sodium 140 mmol/L (136-145); Total Protein 6.2 g/dL (6.6-8.7)
[2024-02-03 10:46] LABS: Anion Gap 13.6 (5-19); Aspartate Amino Transferase 23 U/L (0-40); Potassium 3.6 mmol/L (3.5-5.1)
[2024-02-03] MEDS: pembrolizumab 200 MG in sodium chloride 0.9% 250 ML 516 MG IV (11:45)
[2024-02-03 12:15] VITALS: RESP 17; O2SAT 100
[2024-02-03] MEDS: oxyCODONE 5 mg IR Tab/Cap 15 MG PO (12:15)
[2024-02-03 12:45] VITALS: BP 104/59; PULSE 66; RESP 18; TEMP 35.9; O2SAT 97
== END 2024-02-03 23:59 | disposition home or self-care (01) ==
PROVIDERS: PCP Family Medicine; Visit Provider Nurse Practitioner Family
DX: C34.11 Malignant neoplasm of upper lobe, right bronchus or lung (principal); C79.51 Secondary malignant neoplasm of bone; Z79.899 Other long term (current) drug therapy; R93.7 Abnormal findings on diagnostic imaging of other parts of musculoskeletal system; K80.20 Calculus of gallbladder without cholecystitis without obstruction; K57.30 Diverticulosis of large intestine without perforation or abscess without bleeding
CPT/HCPCS: 36415; 80053; 85025; 86850; 86900; 86920; 96413; 99214; A4222; J7050; J9271

== ENCOUNTER 2024-02-09 18:21 | Emergency (ER) | payer OTHER, MEDICARE, SELFPAY ==
[2024-02-09 18:31] VITALS: BP 150/93; PULSE 78; RESP 16; TEMP 36.8; O2SAT 83; BMI 28.3
--- NOTE | 2024-02-09 18:59 | ED_ITS ---
HPI - Weakness 2 General: Chief complaint: Weakness Stated complaint: Weakness Time Seen by Provider: 02/09/24 18:45 History of Present Illness: Patient presents to the ER with complaints of weakness for the last [address] Chadwick's office about 3 days ago where he received 2 units of blood. And an MRI. He says been feeling this way even before that. Patient arrived here not wearing any oxygen with an O2 sat of 83%. Patient states he normally wears oxygen. Patient cannot delineate why he feels bad or localize it. Patient does state he has lung cancer has metastasized to the bone. Review of Systems 2 General: Reports: 10 or more systems reviewed and unremarkable except in HPI and below PFSH ED 2 PFSH: Medical History Closed intertrochanteric fracture of left hip Thromboembolism 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, 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 Metastatic non-small cell lung cancer Hereditary hemochromatosis Peripheral arterial disease with history of revascularization BPH (benign prostatic hyperplasia) Peripheral neuropathy Type 2 diabetes mellitus Allergic rhinitis GERD (gastroesophageal reflux disease) Hyperlipidemia Hypertension Gout Carotid artery disease Celiac artery stenosis DJD (degenerative joint disease) Obstructive sleep apnea COPD (chronic obstructive pulmonary disease) Coronary artery disease Surgical History H/O arterial bypass of lower limb (1999) right leg History of quadruple bypass (1996) History of lobectomy of lung (04/29/17) right upper lobe lobectomy with mediastinal lymph node biopsy History of PTCA Hx of cataract extraction History of tonsillectomy and adenoidectomy Hx of appendectomy History of left hip hemiarthroplasty (03/17/19) Family History Mother Diabetes Chronic kidney disease (CKD) Brother CAD (coronary artery disease) Cancer Diabetes Son CAD (coronary artery disease) Denies family history of Clotting disorder Dementia Suicide Anesthesia complication Bleeding disorder Lung disease Stroke Social History Smoking and tobacco/nicotine status: unknown if used tobacco/nicotine Quit status (tobacco/nicotine): has quit using Year quit tobacco: 1996 Former quit date comment: 1.5 ppd X 49 years Alcohol intake: never Substance/Drug Use: never Lives independently: Yes Household members: spouse Special jazlyn needs: No Physical Exam 2 Const: COMMON NORMALS: no acute distress, average body habitus, patient oriented x3, no limitations, healthy appearing, alert and well nourished HENMT: COMMON NORMALS: normocephalic, atraumatic, hearing grossly normal bilaterally, external ears normal, Normal external nose present and moist oral mucous membranes HEAD & SCALP: normocephalic and atraumatic NOSE: Normal external nose present EXTERNAL EAR: Yes external ears normal Neck/C-Spine: COMMON NORMALS: no JVD Chest: COMMONS NORMALS: normal inspection of the chest and normal palpation of entire chest wall Resp: COMMON NORMALS: normal respiratory effort, No retractions, No use of accessory muscles and clear to auscultation bilaterally AUSCULTATION: clear to auscultation bilaterally Cardio: COMMON NORMALS: no JVD, regular rate, regular rhythm, S1 normal heart sound present, S2 normal heart sound present, No gallops present (Cardio), No clicks present (Cardio), No murmurs present (Cardio) and No rub (Cardio) R ATE: regular rate RHYTHM: regular rhythm HEART SOUNDS: S1 normal heart sound present and S2 normal heart sound present GI: COMMON NORMALS: Normal to inspection, nondistended, normoactive bowel sounds present, Soft to palpation, non-tender, No hepatosplenomegaly present and no masses PALPATION: Yes Soft to palpation and Yes No hepatosplenomegaly present Neuro: COMMON NORMALS: patient oriented x3 SENSORIUM/ORIENTATION: Yes alert Course 2 Vital Signs: Vital signs: Vital Signs Temperature 98.3 F 02/09/24 20:24 Pulse Rate 86 02/09/24 20:24 Respiratory Rate 14 02/09/24 20:24 Blood Pressure 159/50 02/09/24 20:24 Pulse Oximetry 97 02/09/24 20:24 Oxygen Delivery Me thod Room Air 02/09/24 20:00 MDM - Weakness Medical Decision Making Patient appeared to be hypoxic upon arrival on room air with O2 sat of 83% however when he is placed on 4 L oxygen per nasal cannula his O2 sat went up to 96%. Lab work was obtained which was unremarkable. These results was discussed with the patient. He said he is ready to go home. Patient be discharged. Differential Diagnosis Likely anemia; Unlikely acute myocardial infarction, hypoglycemia, hypothyroidism, rhabdomyolysis, sepsis or dehydration Medical Records I reviewed the patient's medical records. Lab Data I reviewed the patient's lab results. 02/09/24 19:07 02/09/24 19:07 Laboratory Results WBC 4.08 10^3/uL (3.29-11.43) 02/09/24 19:07 RBC 3.41 10^6/uL (3.85-5.65) L 02/09/24 19:07 Hgb 11.00 g/dL (11.27-16.99) L 02/09/24 19:07 Hct 35.1 % (37-53) L 02/09/24 19:07 MCV 102.9 fl (82-101) H 02/09/24 19:07 MCH 32.3 pg (27-33) 02/09/24 19:07 MCHC 31.3 g/dL (30-55) 02/09/24 19:07 RDW 22.6 % (12.1-15.1) H 02/09/24 19:07 Plt Count 166 10^3/cmm (157-399) 02/09/24 19:07 MPV 10.0 fL (7.4-10.4) 02/09/24 19:07 Neut % (Auto) 54.9 % 02/09/24 19:07 Lymph % (Auto) 20.8 % 02/09/24 19:07 Walsh % (Auto) 19.6 % 02/09/24 19:07 Eos % (Auto) 3.7 % 02/09/24 19:07 Baso % (Auto) 0.5 % 02/09/24 19:07 Neut # (Auto) 2.24 10^3/uL (1.8-7.7) 02/09/24 19:07 Lymph # (Auto) 0.9 10^3/uL (0.8-4.8) 02/09/24 19:07 Walsh # (Auto) 0.8 10^3/uL (0.2-0.9) 02/09/24 19:07 Eos # (Auto) 0.2 10^3/uL (0.0-0.8) 02/09/24 19:07 Baso # (Auto) 0.0 10^3/uL (0.0-0.1) 02/09/24 19:07 Nucleated RBC % (auto) 0 % 02/09/24 19:07 Nucleated RBCs # 0.0 /100WBC 02/09/24 19:07 Sodium 144 mmol/L (136-145) 02/09/24 19:07 Potassium 3.6 mmol/L (3.5-5.1) 02/09/24 19:07 Chloride 105 mmol/L (98-107) 02/09/24 19:07 Carbon Dioxide 33 mmol/L (22-29) H 02/09/24 19:07 Anion Gap 9.6 (5-19) 02/09/24 19:07 BUN 13 mg/dL (8-23) 02/09/24 19:07 Creatinine 1.0 mg/dL (0.7-1.2) 02/09/24 19:07 GFR Calculation Not Reportable 02/09/24 19:07 Glucose 151 mg/dL (65-115) H 02/09/24 19:07 Calculated Osmolality 301 mOsm/kg (285-295) H 02/09/24 19:07 Calcium 9.0 mg/dL (8.5-10.5) 02/09/24 19:07 Magnesium 1.7 mg/dL (1.7-2.3) 02/09/24 19:07 Total Bilirubin 0.7 mg/dL (0.15-1.2) 02/09/24 19:07 AST 22 U/L (0-40) 02/09/24 19:07 ALT 10 U/L (0-41) 02/09/24 19:07 Alkaline Phosphatase 45 U/L (40-130) 02/09/24 19:07 Total Protein 6.0 g/dL (6.6-8.7) L 02/09/24 19:07 Albumin 3.5 g/dL (3.5-5.2) 02/09/24 19:07 Globulin 2.5 g/dL (1.3-4.6) 02/09/24 19:07 TSH 3.04 uIU/mL (0.27-4.20) 02/09/24 19:07 All radiology interpretation(s) finalized by discharge Discharge Plan Discharge Patient Disposition: Home Clinical Impression: Generalized weakness Fatigue Qualifiers: Fatigue type: unspecified Qualified Code(s): R53.83 - Other fatigue Condition: Stable Prescriptions: No Action albuterol sulfate 90 mcg/actuation HFA aerosol inhaler 2 puff inhalation Q6H PRN (Reason: shortness of breath or wheezing) Qty: 8.5 6RF Stiolto Respimat 2.5-2.5 mcg/actuation mist 2 puff inhalation DAILY Qty: 4 6RF doxycycline hyclate 100 mg tablet 100 mg PO BID 7 Days Qty: 14 0RF oxycodone 15 mg tablet 15 mg PO Q6H PRN (Reason: pain) 30 Days Qty: 120 0RF enoxaparin [Lovenox] 80 mg/0.8 mL syringe 80 mg SUBCUT Q12H Qty: 48 3RF (DME) blood-glucose meter [True Metrix Air Glucose Meter] Misc See Rx Instructions .Route Qty: 1 0RF Rx Instructions: As directed ofloxacin 0.3 % drops 2 drp otic (ear) BID 360 Days Qty: 10 12RF Rx Instructions: Apply 2 drops to right ear twice daily meclizine 25 mg tablet See Rx Instructions .ROUTE .COMPLEX Qty: 270 0RF Dose Instruction: TAKE 1 TABLET THREE TIMES DAILY Rx Instructions: TAKE 1 TABLET THREE TIMES DAILY lovastatin 40 mg tablet See Rx Instructions .ROUTE .COMPLEX Qty: 180 10RF Dose Instruction: TAKE 1 TABLET TWICE DAILY AT 8:00 AM AND 6:00 PM Rx Instructions: TAKE 1 TABLET TWICE DAILY AT 8:00 AM AND 6:00 PM lorazepam 1 mg tablet 0.5 - 1 mg PO Q6H PRN (Reason: Severe Nausea) Qty: 30 3RF clopidogrel 75 mg tablet See Rx Instructions .ROUTE .COMPLEX Qty: 180 10RF Dose Instruction: TAKE 1 TABLET TWICE DAILY Rx Instructions: TAKE 1 TABLET TWICE DAILY naloxone 1 mg/mL syringe 1 mg IM .Q2-3M PRN (Reason: opioid reversal) Qty: 4 2RF Rx Instructions: NTExceed 10 mg total dose/episode fluticasone propionate 50 mcg/actuation spray,suspension See Rx Instructions .ROUTE .COMPLEX Qty: 16 10RF Hold Instructions: Has to many Dose Instruction: USE 2 SPRAYS NASALLY EVERY DAY NEEDED FOR NASAL CONGESTION Rx Instructions: USE 2 SPRAYS NASALLY EVERY DAY NEEDED FOR NASAL CONGESTION carvedilol 25 mg tablet See Rx Instructions .ROUTE .COMPLEX Qty: 180 3RF Dose Instruction: TAKE 1 TABLET TWICE DAILY AT 8:00 AM AND 6:00 PM Rx Instructions: TAKE 1 TABLET TWICE DAILY AT 8:00 AM AND 6:00 PM (DME) lancets [TRUEplus Lancets] 33 gauge misc See Rx Instructions .ROUTE .COMPLEX Qty: 100 3RF Dose Instruction: TEST BLOOD SUGAR DIRECTED Rx Instructions: TEST BLOOD SUGAR DIRECTED dexamethasone 4 mg tablet See Rx Instructions .ROUTE .COMPLEX Qty: 24 0RF Dose Instruction: TAKE 4 TABLETS BY MOUTH DIRECTED TWICE DAILY FOR 3 DAYS FOR CHEMOTHERAPY START THE DAY PRIOR TO ALIMTA TREATMENT Rx Instructions: TAKE 4 TABLETS BY MOUTH DIRECTED TWICE DAILY FOR 3 DAYS FOR CHEMOTHERAPY START THE DAY PRIOR TO ALIMTA TREATMENT tamsulosin 0.4 mg capsule See Rx Instructions .ROUTE .COMPLEX Qty: 90 3RF Dose Instruction: TAKE 1 CAPSULE EVERY DAY Rx Instructions: TAKE 1 CAPSULE EVERY DAY gabapentin 300 mg capsule See Rx Instructions .ROUTE .COMPLEX Qty: 90 3RF Dose Instruction: TAKE 1 CAPSULE AT BEDTIME AT 6:00 PM Rx Instructions: TAKE 1 CAPSULE AT BEDTIME AT 6:00 PM Januvia 100 mg tablet 100 mg PO DAILY Qty: 90 0RF allopurinol 300 mg tablet See Rx Instructions .ROUTE .COMPLEX Qty: 90 3RF Dose Instruction: TAKE 1 TABLET EVERY DAY AT 8 AM Rx Instructions: TAKE 1 TABLET EVERY DAY AT 8 AM folic acid 1 mg tablet 1 mg PO DAILY Qty: 30 5RF Rx Instructions: Folic acid supplementation should start 7 days prior to treatment and continuing 21 days after the last pemetrexed dose. ezetimibe 10 mg tablet See Rx Instructions .ROUTE .COMPLEX Qty: 90 3RF Dose Instruction: TAKE 1 TABLET EVERY DAY Rx Instructions: TAKE 1 TABLET EVERY DAY levothyroxine 25 mcg tablet See Rx Instructions .ROUTE .COMPLEX Qty: 90 3RF Dose Instruction: TAKE 1 TABLET EVERY DAY Rx Instructions: TAKE 1 TABLET EVERY DAY pioglitazone 30 mg tablet See Rx Instructions .ROUTE .COMPLEX Qty: 90 0RF Dose Instruction: TAKE 1 TABLET EVERY DAY Rx Instructions: TAKE 1 TABLET EVERY DAY vitamin [id number] acid 0.5-1 mg Tablet 1 tab PO DAILY@0800 cholecalciferol (vitamin D3) [Vitamin D3] 2,000 unit Tablet 2,000 unit PO DAILY@0800 omega 2-xxf-jrq-fish oil [Fish Oil] 1,000 mg (120 mg-180 mg) Capsule 2 cap PO BID Jardiance 25 mg tablet 25 mg PO DAILY@0800 cetirizine 10 mg Tablet 5 mg PO DAILY PRN (Reason: Allergy Symptoms) ondansetron HCl 4 mg Tablet 4 mg PO QID PRN (Reason: Nausea/vomiting) Qty: 30 3RF Compazine 10 mg tablet 10 mg PO Q4H PRN (Reason: Mild Nausea) Qty: 30 3RF Discharge Orders: Discharge ED (Routine); Ordered 02/09/24 Ordered By: Cole Leonardo Referrals: Silver Alvarez DO [Primary Care Provider] - 1 week Patient Instructions: Fatigue, Weakness (Generalized) Activity Restrictions/Additional Instructions: Your evaluation in the ER did not show any acute reason for your symptomatology. However when you showed up you are very hypoxic, you should wear your oxygen at all times. Please follow-up with your family practice physician or oncologist within next 7 days for further evaluation and treatment. Coding Level of Care Code ED Content Publisher for Chg Fwd Related Data Home Medications Medication Instructions Recorded Confirmed cholecalciferol (vitamin D3) 50 2,000 unit PO DAILY@0800 06/28/19 02/03/24 mcg (2,000 unit) tablet (Vitamin D3) omega 3-etg-rht-fish oil 1,000 mg 2 cap PO BID 06/28/19 02/03/24 (120 mg-180 mg) capsule (Fish Oil) vitamin B12 0.5 mg-folic acid 1 mg 1 tab PO DAILY@0800 06/28/19 02/03/24 tablet cetirizine 10 mg tablet 5 mg PO DAILY PRN Allergy Symptoms 09/08/20 02/03/24 empagliflozin 25 mg tablet 25 mg PO DAILY@0800 05/20/22 02/03/24 (Jardiance) Previous Rx's Medication Instructions Recorded enoxaparin 80 mg/0.8 mL 80 mg (0.8 mL) SUBCUT Q12H #48 mL 06/25/22 subcutaneous syringe (Lovenox) blood-glucose meter (True Metrix #1 ea 08/05/22 Air Glucose Meter) ofloxacin 0.3 % eye drops 2 drp otic (ear) BID 12 months #10 08/06/22 mL albuterol sulfate 90 mcg/actuation 2 puff inhalation Q6H PRN 02/09/23 aerosol inhaler shortness of breath or wheezing #8.5 grams tiotropium 2.5 mcg-olodaterol 2.5 2 puff inhalation DAILY #4 grams 02/09/23 mcg/actuation mist for inhalation (Stiolto Respimat) meclizine 25 mg tablet See Rx Instructions .Route 02/12/23 .COMPLEX #270 tabs lovastatin 40 mg tablet See Rx Instructions .Route 04/02/23 .COMPLEX #180 tabs ondansetron HCl 4 mg tablet 4 mg PO QID PRN Nausea/vomiting 04/07/23 #30 tabs prochlorperazine maleate 10 mg 10 mg PO Q4H PRN Mild Nausea #30 04/07/23 tablet (Compazine) tabs lorazepam 1 mg tablet 0.5 - 1 mg (0.5 - 1 x 1 mg) PO Q6H 04/09/23 PRN Severe Nausea #30 tabs clopidogrel 75 mg tablet See Rx Instructions .Route 04/27/23 .COMPLEX #180 tabs naloxone 1 mg/mL injection syringe 1 mg IM .Q2-3M PRN opioid reversal 04/30/23 #4 mL fluticasone propionate 50 See Rx Instructions .Route 05/06/23 mcg/actuation nasal .COMPLEX #16 grams spray,suspension carvedilol 25 mg tablet See Rx Instructions .Route 05/18/23 .COMPLEX #180 tabs lancets 33 gauge (TRUEplus Lancets) #100 ea 05/18/23 dexamethasone 4 mg tablet See Rx Instructions .Route 06/16/23 .COMPLEX #24 tabs gabapentin 300 mg capsule See Rx Instructions .Route 07/06/23 .COMPLEX #90 caps tamsulosin 0.4 mg capsule See Rx Instructions .Route 07/06/23 .COMPLEX #90 caps sitagliptin phosphate 100 mg 100 mg PO DAILY #90 tabs 07/24/23 tablet (Januvia) allopurinol 300 mg tablet See Rx Instructions .Route 08/28/23 .COMPLEX #90 tabs folic acid 1 mg tablet 1 mg PO DAILY #30 tabs 09/07/23 ezetimibe 10 mg tablet See Rx Instructions .Route 09/21/23 .COMPLEX #90 tabs doxycycline hyclate 100 mg tablet 100 mg PO BID 7 days #14 tabs 10/09/23 levothyroxine 25 mcg tablet See Rx Instructions .Route 11/09/23 .COMPLEX #90 tabs pioglitazone 30 mg tablet See Rx Instructions .Route 11/23/23 .COMPLEX #90 tabs oxycodone 15 mg tablet 15 mg PO Q6H PRN pain 30 days #120 02/03/24 tabs Allergies Allergy/AdvReac Type Severity Reaction Status Date / Time prednisone Allergy Unknown rash Verified 02/03/24 10:22 naproxen [From Aleve] Allergy ALGY-Hives Verified 02/03/24 10:22 Penicillins Allergy ALGY-Hives Verified 02/03/24 10:22
[2024-02-09 19:06] VITALS: BP 148/78; PULSE 80; RESP 16; O2SAT 97
[2024-02-09 19:14] LABS: Basophils % 0.5 %; Eosinophils # 0.2 10^3/uL (0.0-0.8); Eosinophils % 3.7 %; Hematocrit 35.1 % (37-53); Lymphocytes # 0.9 10^3/uL (0.8-4.8); Lymphocytes % 20.8 %; Mean Corpuscular HGB Conc 31.3 g/dL (30-55); Mean Corpuscular Hemoglobin 32.3 pg (27-33); Mean Corpuscular Volume 102.9 fl (82-101); Monocytes # 0.8 10^3/uL (0.2-0.9); Monocytes % 19.6 %; Neutrophils # 2.24 10^3/uL (1.8-7.7); Neutrophils % 54.9 %; Nucleated Red Blood Cells % 0 %; Platelet Count 166 10^3/cmm (157-399); Red Blood Count 3.41 10^6/uL (3.85-5.65); Red Cell Distribution Width 22.6 % (12.1-15.1); White Blood Count 4.08 10^3/uL (3.29-11.43)
[2024-02-09 19:40] LABS: Alanine Aminotransferase 10 U/L (0-41); Albumin Level 3.5 g/dL (3.5-5.2); Alkaline Phosphatase 45 U/L (40-130); Anion Gap 9.6 (5-19); Aspartate Amino Transferase 22 U/L (0-40); Blood Urea Nitrogen 13 mg/dL (8-23); Carbon Dioxide 33 mmol/L (22-29); Chloride 105 mmol/L (98-107); Creatinine Clr Calc Pharmacy 55.5128; Globulin 2.5 g/dL (1.3-4.6); Glucose 151 mg/dL (65-115); Magnesium 1.7 mg/dL (1.7-2.3); Osmolality Calculated 301 mOsm/kg (285-295); Potassium 3.6 mmol/L (3.5-5.1); Sodium 144 mmol/L (136-145); Thyroid Stimulating Hormone 3.04 uIU/mL (0.27-4.20); Total Bilirubin 0.7 mg/dL (0.15-1.2)
[2024-02-09 20:00] VITALS: BP 159/50; PULSE 86; RESP 14; O2SAT 97
[2024-02-09 20:24] VITALS: BP 159/50; PULSE 86; RESP 14; TEMP 36.8; O2SAT 97
== END 2024-02-09 20:25 | disposition home or self-care (01) ==
PROVIDERS: Emergency Provider Emergency Medicine; PCP Family Medicine
DX: R53.1 Weakness (principal); R53.83 Other fatigue; Z79.02 Long term (current) use of antithrombotics/antiplatelets; Z87.891 Personal history of nicotine dependence; E11.42 Type 2 diabetes mellitus with diabetic polyneuropathy; E78.5 Hyperlipidemia, unspecified; I10 Essential (primary) hypertension; J44.9 Chronic obstructive pulmonary disease, unspecified; I25.10 Atherosclerotic heart disease of native coronary artery without angina pectoris
CPT/HCPCS: 36415; 80053; 83735; 84443; 85025; 99283

== ENCOUNTER 2024-02-10 14:00 | Oncology outpatient (recurring) (ONCR) | payer OTHER, SELFPAY ==
[2024-02-04] VITALS (10 sets, daily range): BP systolic 101–151; BP diastolic 50–75; PULSE 57–94; RESP 16–95; TEMP 36.1–36.8; O2SAT 92–96
[2024-02-04] MEDS: acetaminophen 325 mg Tablet 650 MG PO (08:56)
[2024-02-04] MEDS: diphenhydrAMINE 25 mg Capsule PO (08:56)
[2024-02-04] MEDS: FUROsemide 10 mg/mL SDV 2mL 20 MG IVP (11:44)
--- NOTE | 2024-02-05 11:45 | MR_ITS ---
WS: [id number] MRI BRAIN WITH AND WITHOUT CONTRAST HISTORY: malignant neoplasm of upper lobe COMPARISON: MRI 06/30/2023 TECHNIQUE: Multiplanar imaging performed through the brain with MultiHance 16 ml's IV. No acute infarcts. Moderate bilateral, symmetric volume loss and atrophy. Moderate small vessel ische raffy changes in the periventricular white matter. The T2 and FLAIR signal hyperintensities have remain ed stable. 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 There are a dditional areas of microvascular changes. Moderate bilateral hippocampal atrophy, RIGHT greater than LEFT. No susceptibility artifacts or prior lacunar infarcts. Ventricles and extra-axial spaces are all prominent on the basis of atrophy. Clivus and pituitary gland are normal. Visualized posterior fossa and brainstem are also normal. No metastatic lesions are identified within the brain. There is moderate motion artifact on several o f the sequences causing some limitation. Dural venous sinuses are normal. Paranasal sinuses: Well aerated with no significant disease. Mastoid air cells: Moderate fluid in the RIGHT mastoid air cells Fluid has been increase since the pr ior study. Calvarium and scalp: Normal. MR/MR head wo/w con [id number] IMPRESSION: 1. Study is compromised by motion artifact. 2. No evidence for metastatic disease to the brain. 3. Moderate atrophy and small vessel ischemic disease is unchanged. 4. Increase in the mastoid air cell effusion.
[2024-02-05] MEDS: gadobenate dimeglumine 20 mL vial 16 ML IV (13:08)
[2024-02-10] MEDS: denosumab 120 mg SDV SUBCUT (14:48)
[2024-02-10 14:53] VITALS: BP 117/52; PULSE 69; RESP 16; TEMP 37.1; O2SAT 95
== END 2024-02-20 23:55 | disposition home or self-care (01) ==
PROVIDERS: PCP Family Medicine; Visit Provider Internal Medicine
DX: Z53.9 Procedure and treatment not carried out, unspecified reason (principal); C34.11 Malignant neoplasm of upper lobe, right bronchus or lung; Z79.899 Other long term (current) drug therapy
CPT/HCPCS: 36430; 70553; 86850; 86900; 86920; 96372; 96375; A9577; J0897; J1940; P9016